=== PATIENT | female | born 1930 | race Caucasian/White ===

== ENCOUNTER 2017-01-17 04:03 | Observation (INO) | payer OTHER ==
[2017-01-17] VITALS (13 sets, daily range): BP systolic 138–172; BP diastolic 68–82; PULSE 57–72; TEMP 36.3–36.6; O2SAT 93–95; Ht 149.9 cm; Wt 73.6 kg
[~2017-01-17] VITALS: Ht 149.9 cm; Wt 73.6 kg
[~2017-01-17 04:03] MED LIST: ADVIN50/60 INH; ALL100 PO; ARFO15NE INH; ASPI1TAB83 PO; BUDE0.5S INH; CALC-393 PO; CALC0.25 PO; CARV25TA PO; CARV25TA2 PO; CEPH500C2 PO; CHOL100010 PO; CLOTCRE33 TOP; DENO60SO SQ; DOCU50CA2 PO; ENOX1INJ10 SQ; FOLI400T41 PO; FRS/40 PO; IMDSR60 PO; LANS30CA12 PO; LEVA0.63 INH; LEVAAER2 INH; LEVO100T PO; LORA-741 PO; LORA10TA44 PO; LOSA50TA6 PO; LPT/40 PO; MONT1TAB3 PO; MULT-506 PO; NITR0.4S UT; NYSS/ MT; NYST1POW7 TOP; OMEG340C PO; PSYL0.524 PO; SALI1SPR3 NAE; SPIR25TA PO; TRIA3AER NAE; ZNT150 PO
[2017-01-17] MEDS ORDERED: NITROGLYCERIN 0.4 MG SL PER TAB CHARGE SL STA (04:16)
[2017-01-17 04:43] LABS: BASO % 0.9 %; BASO ABS # 0.06 K/uL (0-0.2); COMPLETE YES; EOS % 2.9 %; HEMATOCRIT 37.9 % (37-47); IG% 0.3 %; LYMPH % 45.9 %; MEAN CELL VOLUME 92.7 fL (80-100); MEAN CORPUSCULAR HEMOGLOBIN 30.8 pg (25-34); MEAN CORPUSCULAR HGB CONC 33.2 g/dl (32-36); MEAN PLATELET VOLUME 9.9 fL (7.4-10.4); MONO % 8.6 %; NEUT % 41.4 %; PLATELET COUNT 195 K/uL (130-400); RED BLOOD COUNT 4.09 M/uL (4.2-5.4); WHITE BLOOD COUNT 6.53 K/uL (4.8-10.8)
[2017-01-17 04:53] LABS: INR 1.6 (0.9-1.1); PARTIAL THROMBOPLASTIN RATIO 1.2
[2017-01-17] MEDS ORDERED: PANT40TA PO (05:00)
[2017-01-17 05:01] LABS: ALT/SGPT 19 U/L (12-78); AST/SGOT 16 U/L (15-37); BLOOD UREA NITROGEN 31 mg/dl (7-18); BUN/CREATININE RATIO 24.1 (10-20); CALCIUM 8.3 mg/dl (8.5-10.1); CARBON DIOXIDE 28 mmol/L (21-32); CHLORIDE 103 mmol/L (98-107); GLUCOSE 99 mg/dl (70-99); POTASSIUM 3.7 mmol/L (3.5-5.1); SODIUM 137 mmol/L (136-145)
[2017-01-17] MEDS ORDERED: RANI150T3 PO ×2 (05:03)
[2017-01-17] MEDS ORDERED: HYDR-4715 PO (05:04)
[2017-01-17 05:06] LABS: ALKALINE PHOSPHATASE 47 U/L (45-117)
[2017-01-17] MEDS ORDERED: LEVO137T3 PO (05:07)
[2017-01-17] MEDS ORDERED: POTA10CA28 PO (05:07)
--- NOTE | 2017-01-17 05:09 | EMERGENCY ROOM VISIT NOTE ---
ED Visit Note First contact with patient: 04:09 Patient seen by me, rl physician assistants workup, patient will be admitted for chest pain and further evaluation. Problem List Medical Problems: (1) Appendectomy Status: Resolved (2) Asthma Status: Chronic (3) Benign hypertension Status: Chronic (4) Bronchitis Status: Resolved (5) Chronic cough Status: Chronic (6) GERD (gastroesophageal reflux disease) Status: Chronic (7) Heart disease Status: Chronic (8) Hysterectomy Status: Resolved (9) Kidney disease Status: Chronic (10) Osteoporosis Status: Chronic (11) Pneumonia Status: Resolved Current/Historical Medications Scheduled Allopurinol (Allopurinol), 200 MG PO QAM Aspirin (Aspirin), 81 MG PO QAM Atorvastatin (Lipitor), 40 MG PO 6 PM Calcitriol (Rocaltrol Cap), 0.25 MCG PO QAM Calcium Carbonate (Calcium), 1 TAB PO TID Carvedilol (Coreg), 12.5 MG PO AMHS Denosumab (Prolia), 1 DOSE SQ EVERY 6 MONTHS Enoxaparin Sodium (Lovenox), 60 MG SQ DAILY@2000 Fluticasone Prop/Salmeterol (Advair Diskus 500/50 60 Dose), 1 PUFF INH BID Folic Acid (Folvite), 800 MCG PO DAILY Furosemide (Lasix), 60 MG PO DAILY Levothyroxine Sodium (Levothyroxine Sodium), 1 TAB PO QAM Losartan Potassium (Cozaar), 50 MG PO QPM Montelukast Sodium (Singulair), 10 MG PO QAM Multivitamin (Multivitamin), 1 TAB PO QAM Prosser-3 Fatty Acids (Prosser 3), 1 CAP PO QAM Pantoprazole (Protonix), 40 MG PO BID Potassium Chloride (Micro-K Ext Rel), 10 MEQ PO 2XWK Psyllium (Metamucil), 0.52 GM PO BID Ranitidine Hcl (Zantac), 1 TAB PO QAM Ranitidine Hcl (Zantac), 2 TAB PO QPM Spironolactone (Aldactone), 12.5 MG PO QAM Scheduled PRN Arformoterol Tartrate (Brovana), 15 MCG INH BID PRN for SOB/Wheezing Clotrimazole W/ Betamethasone (Lotrisone), 1 APPLN TOP BID PRN for RASH Hydralazine Hcl (Apresoline), 10 MG PO BID PRN for HTN Lorazepam (Ativan), 0.5 MG PO BID PRN for Anxiety Nitroglycerin (Nitrostat), 0.4 MG UT UD PRN for Chest Pain Nystatin (Nystatin Suspension), 5 ML MT QID PRN for THRUSH Nystatin (Topical) (Nystatin), 1 APPLN TOP BID PRN for IRRITATION Allergies Coded Allergies: Dipyridamole (Verified Allergy, Severe, ANAPHYLAXIS, 12/09/14) Edetic Acid (Verified Allergy, Severe, ANAPHYLAXIS, 12/09/14) Propylene Glycol (Verified Allergy, Severe, ANAPHYLAXIS, 12/09/14) Regadenoson (Verified Allergy, Severe, ANAPHYLAXIS, 12/09/14) NSAIDs (Verified Allergy, Mild, per patient, director of resource development recommended not to take, 12/09/14) Sulfamethoxazole (Verified Allergy, Mild, RASH, 12/09/14) Trimethoprim (Verified Allergy, Mild, RASH, 12/09/14) Vital Signs Date Time Temp Pulse Resp B/P (MAP) Pulse Ox O2 Delivery O2 Flow Rate FiO2 01/17/17 04:26 Room Air 01/17/17 04:26 Room Air 01/17/17 04:15 60 01/17/17 04:14 96 Room Air 01/17/17 04:14 36.9 67 18 172/82 96 Room Air Laboratory Results 01/17/17 03:58 Red Blood Count 4.09, Mean Corpuscular Volume 92.7, Mean Corpuscular Hemoglobin 30.8, Mean Corpuscular Hemoglobin Concent 33.2, Mean Platelet Volume 9.9, Neutrophils (%) (Auto) 41.4, Lymphocytes (%) (Auto) 45.9, Monocytes (%) (Auto) 8.6, Eosinophils (%) (Auto) 2.9, Basophils (%) (Auto) 0.9, Neutrophils # (Auto) 2.70, Lymphocytes # (Auto) 3.00, Monocytes # (Auto) 0.56, Eosinophils # (Auto) 0.19, Basophils # (Auto) 0.06 01/17/17 03:58 Test 01/17/17 03:58 01/17/17 04:20 White Blood Count 6.53 K/uL (4.8-10.8) Red Blood Count 4.09 M/uL (4.2-5.4) Hemoglobin 12.6 g/dL (12.0-16.0) Hematocrit 37.9 % (37-47) Mean Corpuscular Volume 92.7 fL (80-100) Mean Corpuscular Hemoglobin 30.8 pg (25-34) Mean Corpuscular Hemoglobin Concent 33.2 g/dl (32-36) Platelet Count 195 K/uL (130-400) Mean Platelet Volume 9.9 fL (7.4-10.4) Neutrophils (%) (Auto) 41.4 % Lymphocytes (%) (Auto) 45.9 % Monocytes (%) (Auto) 8.6 % Eosinophils (%) (Auto) 2.9 % Basophils (%) (Auto) 0.9 % Neutrophils # (Auto) 2.70 K/uL (1.4-6.5) Lymphocytes # (Auto) 3.00 K/uL (1.2-3.4) Monocytes # (Auto) 0.56 K/uL (0.11-0.59) Eosinophils # (Auto) 0.19 K/uL (0-0.5) Basophils # (Auto) 0.06 K/uL (0-0.2) RDW Standard Deviation 50.4 fL (36.4-46.3) RDW Coefficient of Variation 14.8 % (11.5-14.5) Immature Granulocyte % (Auto) 0.3 % Immature Granulocyte # (Auto) 0.02 K/uL (0.00-0.02) Prothrombin Time 17.0 SECONDS (9.0-12.0) Prothromb Time International Ratio 1.6 (0.9-1.1) Activated Partial Thromboplast Time 32.4 SECONDS (21.0-31.0) Partial Thromboplastin Ratio 1.2 Anion Gap 6.0 mmol/L (3-11) Est Creatinine Clear Calc Drug Dose 29.2 ml/min Estimated GFR () 43.3 Estimated GFR (Non- 37.4 BUN/Creatinine Ratio 24.1 (10-20) Calcium Level 8.3 mg/dl (8.5-10.1) Total Bilirubin 0.6 mg/dl (0.2-1) Direct Bilirubin 0.1 mg/dl (0-0.2) Aspartate Amino Transf (AST/SGOT) 16 U/L (15-37) Alanine Aminotransferase (ALT/SGPT) 19 U/L (12-78) Alkaline Phosphatase 47 U/L (45-117) Troponin I < 0.015 ng/ml (0-0.045) Total Protein 6.7 gm/dl (6.4-8.2) Albumin 3.4 gm/dl (3.4-5.0) Lipase 221 U/L (73-393) Bedside Troponin I < 0.030 ng/ml (0-0.045) Medications Administered Medications (Trade) Dose Ordered Sig/Hannah Route Start Time Stop Time Status Last Admin Dose Admin Nitroglycerin (Nitrostat Tab) 0.4 mg NOW STAT SL 01/17/17 04:16 01/17/17 04:19 DC 01/17/17 04:32 0.4 MG Departure Information Referrals Cate Stone M.D. (PCP) Patient Instructions [facility]
[2017-01-17] MEDS ORDERED: FURO40TA3 PO ×2 (05:12)
[2017-01-17] MEDS ORDERED: LEVA45AE PO (05:14)
[2017-01-17] MEDS ORDERED: XPNINS NEB (05:14)
[2017-01-17] MEDS ORDERED: PLMINSR5 NEB (05:16)
[2017-01-17] MEDS ORDERED: ISOS120T5 PO (05:19)
[2017-01-17] MEDS ORDERED: CMD/25 PO ×2 (05:21)
[2017-01-17] MEDS ORDERED: GABA-112 PO (05:23)
[2017-01-17] MEDS ORDERED: POTA1CAP2 PO (05:25)
[2017-01-17] MEDS ORDERED: FEXO1TAB49 PO (05:26)
[2017-01-17] MEDS ORDERED: ASTN (05:27)
[2017-01-17] MEDS ORDERED: FERRTAB18 PO (05:27)
--- NOTE | 2017-01-17 06:03 | EMERGENCY ROOM VISIT NOTE ---
History First contact with patient: 04:09 Chief Complaint: CARDIAC ASSESSMENT Stated Complaint: CHEST TIGHTNESS/SHORT OF BREATH Nursing Triage Summary: Patient arrives to ED via ALS transport with complaints of previous chest pain and SOB. Patient states that she was having chest pain at home with SOB, but denies chest pain since arriving to ED. Patient woke up to use the bathroom and had dry mouth, chest tightness and SOB. Patient has a hx of Afib and asthma. Took her inhaler at home for SOB, had 324mg of ASA prehospital. Patient states that HTN is not abnormal at night but was 180/100 for EMS. History of Present Illness The patient is a 86 year old female who presents to the Emergency Room with complaints of chest pain that started 3:00 this morning that radiates to her jaw described as discomfort, 3 out of 10. Nothing made it better or worse. Patient woke up to go the bathroom and then developed chest pain. She summoned EMS gave her aspirin. Prior to that she checked her blood pressure and was 200 and she checked it again and was about the same. She notified her daughter her daughter came over and gave her a nebulizer. Patient follows with Dr. Benjamin. She is a history of CHF. No prior heart attack. She is on Coumadin for A. fib. Patient denies current dyspnea, abdominal pain, leg pain or swelling, history of PE, fever, chills, vomiting, diarrhea. Patient did have nausea with the chest pain. No diaphoresis. She had an echo 2 years ago and had a cardiac cath in 2011 at [facility] that was negative per family. The daughter states that the mother is slow to respond and somewhat confused per her. She is concerned she might be having a stroke and is requesting further workup for this. Review of Systems See HPI for pertinent positives & negatives. A total of 10 systems reviewed and were otherwise negative. Past Medical/Surgical History Medical Problems: (1) Appendectomy (2) Asthma (3) Benign hypertension (4) Bronchitis (5) Chronic cough (6) GERD (gastroesophageal reflux disease) (7) Heart disease (8) Hysterectomy (9) Kidney disease (10) Osteoporosis (11) Pneumonia Family History Diabetes mellitus FH: cancer FH: heart disease Hypertension Kidney disease Kidney stones Social History Smoking Status: Never Smoker Alcohol Use: none Drug Use: none Marital Status: Housing Status: lives with family Occupation Status: retired Current/Historical Medications Scheduled Allopurinol (Allopurinol), 200 MG PO QAM Atorvastatin (Lipitor), 40 MG PO QPM Azelastine Hcl (Astelin Nasal [place]), 1 SPRAYS NA BID Calcitriol (Rocaltrol Cap), 0.25 MCG PO QAM Calcium Carbonate (Calcium), 2 TAB PO QPM Carvedilol (Coreg), 12.5 MG PO AMHS Fexofenadine Hcl (Loraine Allergy), 180 MG PO DAILY Furosemide (Lasix), 1 TAB PO 2XWK Furosemide (Lasix), 0.5 TAB PO 2XWK Gabapentin (Neurontin), 300 MG PO HS Iron-Vitamin C (Vitron-C), 1 TAB PO DAILY Isosorbide Mononitrate Ext Rel (Imdur Ext Rel), 120 MG PO DAILY AT 10PM Levothyroxine Sodium (Levothyroxine Sodium), 1 TAB PO QAM Losartan Potassium (Cozaar), 50 MG PO QPM Pantoprazole (Protonix), 40 MG PO BID Potassium Chloride (Micro-K Ext Rel), 10 MEQ PO 2XWK Potassium Chloride (Potassium Chloride Er), 10 MEQ PO BID Ranitidine Hcl (Zantac), 1 TAB PO QAM Ranitidine Hcl (Zantac), 2 TAB PO QPM Spironolactone (Aldactone), 12.5 MG PO QAM Warfarin Sod (Coumadin), 2 TAB PO 2XWK Warfarin Sod (Coumadin), 1 TAB PO 5XWK Scheduled PRN Budesonide (Pulmicort Respules 0.5MG/2ML), 4 ML NEB Q12 PRN for RESP TREATMENT Hydralazine Hcl (Apresoline), 10 MG PO BID PRN for HTN Levalbuterol (Levalbuterol HCl), 3 ML NEB Q6 PRN for SOB/Wheezing Levalbuterol Tartrate (Levalbuterol Tartrate Hfa), 2 PUFFS PO Q4 PRN for Shortness of Breath Lorazepam (Ativan), 0.5-1 TAB PO BID PRN for Anxiety Nitroglycerin (Nitrostat), 0.4 MG UT UD PRN for Chest Pain Nystatin (Nystatin Suspension), 5 ML MT QID PRN for THRUSH Nystatin (Topical) (Nystatin), 1 APPLN TOP BID PRN for IRRITATION Physical Exam Vital Signs Date Time Temp Pulse Resp B/P (MAP) Pulse Ox O2 Delivery O2 Flow Rate FiO2 01/17/17 05:45 138/72 01/17/17 05:33 60 19 90 Room Air 01/17/17 05:03 58 19 95 Room Air 01/17/17 04:47 161/68 01/17/17 04:33 66 22 94 Room Air 01/17/17 04:31 174/105 01/17/17 04:29 180/78 01/17/17 04:26 Room Air 01/17/17 04:26 Room Air 01/17/17 04:15 60 01/17/17 04:14 96 Room Air 01/17/17 04:14 36.9 67 18 172/82 96 Room Air 01/17/17 04:11 172/82 Physical Exam VITALS: Vitals are noted on the nurse's note and reviewed by myself. Vital signs hypertensive GENERAL: Pleasant elderly female, in no acute distress, nondiaphoretic, well- developed well-nourished. SKIN: The skin was without rashes, erythema, edema, or bruising. There is no tenting of the skin. Capillary reflex less than 2 seconds. HEAD: Normocephalic atraumatic. EARS: External auditory canals clear, tympanic membranes pearly cummins without erythema or effusion bilaterally. EYES: Pupils equal round and reactive to light and accommodation. Conjunctivae without injection, sclerae without icterus. Extraocular movements intact. NOSE: Patent, turbinates without inflammation or discharge. MOUTH: Mucous membranes mildly dry. Pharynx without erythema or exudate. Uvula midline. Airway patent. Tongue does not deviate. NECK: Supple without nuchal rigidity. No lymphadenopathy. No thyromegaly. Cervical spine is nontender. No JVD. HEART: Regular rate and rhythm LUNGS: Clear to auscultation bilaterally without wheezes, rales or rhonchi. No dullness to percussion. No retractions or accessory muscle use. ABDOMEN: Positive bowel sounds x 4. Normal tympanic percussion. Soft, nontender, without masses or organomegaly. Quezada sign negative. No guarding or rebound tenderness. MUSCULOSKELETAL: No muscle atrophy, erythema, noted. Trace pedal edema to lower extremities NEURO: Patient was alert and oriented to person place and time. Normal sensation to light and sharp touch. No focal neurological deficits. Medical Decision & Procedures Laboratory Results 01/17/17 03:58 Red Blood Count 4.09, Mean Corpuscular Volume 92.7, Mean Corpuscular Hemoglobin 30.8, Mean Corpuscular Hemoglobin Concent 33.2, Mean Platelet Volume 9.9, Neutrophils (%) (Auto) 41.4, Lymphocytes (%) (Auto) 45.9, Monocytes (%) (Auto) 8.6, Eosinophils (%) (Auto) 2.9, Basophils (%) (Auto) 0.9, Neutrophils # (Auto) 2.70, Lymphocytes # (Auto) 3.00, Monocytes # (Auto) 0.56, Eosinophils # (Auto) 0.19, Basophils # (Auto) 0.06 01/17/17 03:58 Test 01/17/17 03:58 01/17/17 04:20 White Blood Count 6.53 K/uL (4.8-10.8) Red Blood Count 4.09 M/uL (4.2-5.4) Hemoglobin 12.6 g/dL (12.0-16.0) Hematocrit 37.9 % (37-47) Mean Corpuscular Volume 92.7 fL (80-100) Mean Corpuscular Hemoglobin 30.8 pg (25-34) Mean Corpuscular Hemoglobin Concent 33.2 g/dl (32-36) Platelet Count 195 K/uL (130-400) Mean Platelet Volume 9.9 fL (7.4-10.4) Neutrophils (%) (Auto) 41.4 % Lymphocytes (%) (Auto) 45.9 % Monocytes (%) (Auto) 8.6 % Eosinophils (%) (Auto) 2.9 % Basophils (%) (Auto) 0.9 % Neutrophils # (Auto) 2.70 K/uL (1.4-6.5) Lymphocytes # (Auto) 3.00 K/uL (1.2-3.4) Monocytes # (Auto) 0.56 K/uL (0.11-0.59) Eosinophils # (Auto) 0.19 K/uL (0-0.5) Basophils # (Auto) 0.06 K/uL (0-0.2) RDW Standard Deviation 50.4 fL (36.4-46.3) RDW Coefficient of Variation 14.8 % (11.5-14.5) Immature Granulocyte % (Auto) 0.3 % Immature Granulocyte # (Auto) 0.02 K/uL (0.00-0.02) Prothrombin Time 17.0 SECONDS (9.0-12.0) Prothromb Time International Ratio 1.6 (0.9-1.1) Activated Partial Thromboplast Time 32.4 SECONDS (21.0-31.0) Partial Thromboplastin Ratio 1.2 Anion Gap 6.0 mmol/L (3-11) Est Creatinine Clear Calc Drug Dose 29.2 ml/min Estimated GFR () 43.3 Estimated GFR (Non- 37.4 BUN/Creatinine Ratio 24.1 (10-20) Calcium Level 8.3 mg/dl (8.5-10.1) Total Bilirubin 0.6 mg/dl (0.2-1) Direct Bilirubin 0.1 mg/dl (0-0.2) Aspartate Amino Transf (AST/SGOT) 16 U/L (15-37) Alanine Aminotransferase (ALT/SGPT) 19 U/L (12-78) Alkaline Phosphatase 47 U/L (45-117) Troponin I < 0.015 ng/ml (0-0.045) Total Protein 6.7 gm/dl (6.4-8.2) Albumin 3.4 gm/dl (3.4-5.0) Lipase 221 U/L (73-393) Bedside Troponin I < 0.030 ng/ml (0-0.045) Medications Administered Medications (Trade) Dose Ordered Sig/Hannah Route Start Time Stop Time Status Last Admin Dose Admin Nitroglycerin (Nitrostat Tab) 0.4 mg NOW STAT SL 01/17/17 04:16 01/17/17 04:19 DC 01/17/17 04:32 0.4 MG ED Course Prior records/ancillary studies reviewed. Triage Nursing notes reviewed. Additional history obtained from family. The patient's history was concerning for chest pain. Differential diagnosis: Etiologies such as cardiac ischemia, aortic dissection, pulmonary embolism, pneumonia, pneumothorax, musculoskeletal, infections, pericarditis, myocarditis , esophageal rupture, gastrointestinal, as well as others were entertained. Physical examination: As above. ER treatment provided: Nitroglycerin. EMS gave aspirin On reassessment the patient felt better. Diagnostic interpretation by me: The electrocardiogram was normal sinus, left axis deviation, first degree AV block, no acute ST-T wave changes, rate of 60. Impression normal sinus rhythm with a left axis deviation and first-degree A-V block interpreted by myself The labs revealed negative troponin. No leukocytosis Imaging studies: Chest x-ray with no acute consolidation, pneumothorax or free air per my interpretation CT HEAD: No acute intracranial hemorrhage. No evidence of intracranial mass, extra-axial fluid collection, or acute territorial infarct. Visualized paranasal sinuses and mastoid air cells are clear. Radiologist: Stevenson Barker MD Study ready at 04:59 and initial results transmitted at 05:43 Consultation: A consultation was placed with the hospitalist, Dr Mohr. The case was discussed and diagnostics were reviewed. The patient was evaluated in the ER for further treatment. Exam and history seem consistent with chest pain with concerns for possible cardiac ischemia. Patient will be evaluated by medicine for possible admission. The daughter that the patient was slow to respond and slightly confused the CT imaging was ordered. This is negative. By the evaluation outlined above emergent etiologies such as aortic dissection , pulmonary embolism, pneumonia, pneumothorax, infections, pericarditis, myocarditis, gastrointestinal, as well as others were deemed relatively unlikely. The pt informed about the findings as listed above. All questions were answered and pleased with the treatment. Case reviewed by attending Medical Decision As above Medication Reconcilliation Current Medication List: was personally reviewed by me Blood Pressure Screening Patient's blood pressure: Elevated blood pressure Blood pressure disposition: Referred to PCP Impression Primary Impression: Precordial chest pain Departure Information Dispostion Being Evaluated By Hospitalist Condition FAIR Referrals Cate Stone M.D. (PCP) Patient Instructions My [facility]
[2017-01-17 06:34] LABS: URINE APPEARANCE CLEAR (CLEAR); URINE BILIRUBIN NEG (NEG); URINE COLOR YELLOW; URINE EPITHELIAL CELL AUTO >30 /lpf (0-5); URINE NITRITE NEG (NEG); URINE PH 6.5 (4.5-7.5); URINE SPECIFIC GRAVITY 1.011 (1.000-1.030); UROBILINOGEN NEG (NEG); ZZUR CULT IF INDIC CLEAN CATCH NO
[2017-01-17 06:42] LABS: MANUAL MICROSCOPIC REQUIRED? NO; REVIEW REQ? NO
--- NOTE | 2017-01-17 07:21 | DIAGNOSTIC IMAGING REPORT ---
SINGLE VIEW CHEST CLINICAL HISTORY: Atypical chest pain. FINDINGS: An AP, portable, upright chest radiograph is compared to study dated 01/17/2017. The examination is degraded by portable technique and patient rotation. The cardiomediastinal silhouette is unremarkable. There is atherosclerotic calcification of the thoracic aorta. Left basilar atelectasis is noted. The lungs and pleural spaces are otherwise clear. No pneumothorax is seen. The skeletal structures are osteopenic. The bony thorax is grossly intact. Arthritic change is seen in the shoulders and thoracic spine. IMPRESSION: No acute cardiopulmonary abnormality. Electronically signed by: Abrahan Romero M.D. 01/17/2017 7:20 AM Dictated Date/Time: 01/17/2017 7:19 AM
--- NOTE | 2017-01-17 07:34 | DIAGNOSTIC IMAGING REPORT ---
CT OF THE HEAD WITHOUT CONTRAST CLINICAL HISTORY: Slow to respond. Possible stroke. COMPARISON STUDY: Head CT September 02, 2013. CT DOSE: 537.48 mGy.cm TECHNIQUE: Helical axial images of the head were obtained without IV contrast. Automated exposure control was utilized for the study. A dose lowering technique was utilized adhering to the principles of ALARA. FINDINGS: No acute intracranial hemorrhage, midline shift, mass effect is present. Ventricular system is stable. Basilar cisterns are patent. There are no extra axial collections. Alejandro-white differentiation is maintained. There are no findings to suggest acute territorial infarct or dural sinus thrombosis. Alejandro-white differentiation is maintained. There are no significant calvarial abnormalities. Visualized portions of the sinuses and mastoid air cells are clear. IMPRESSION: No acute intracranial findings. Electronically signed by: Dayo Peña M.D. 01/17/2017 7:33 AM Dictated Date/Time: 01/17/2017 7:28 AM
[2017-01-17] MEDS ORDERED: ONDANSETRON INJ 2 MG/ML 2 ML VIAL IV PRN (09:00)
[2017-01-17] MEDS ORDERED: AMLODIPINE BESYLATE 5 MG TAB PO SCH (09:00)
[2017-01-17] MEDS ORDERED: NITROGLYCERIN 0.4 MG SL PER TAB CHARGE SL PRN (09:00)
[2017-01-17] MEDS ORDERED: POLYETHYLENE (MIRALAX) 17 GM PACK PO PRN (09:00)
[2017-01-17] MEDS ORDERED: ACETAMINOPHEN 325 MG TAB PO PRN (09:00)
[2017-01-17] MEDS ORDERED: CALC-50 PO (09:17)
[2017-01-17] MEDS ORDERED: CRG25 PO (09:17)
[2017-01-17] MEDS ORDERED: DENO60SO SQ (09:23)
[2017-01-17] MEDS ORDERED: OMEG-112 PO (09:23)
[2017-01-17] MEDS ORDERED: FOLI1TAB7 PO (09:23)
[2017-01-17] MEDS ORDERED: FLUT1INH7 PO (09:23)
[2017-01-17] MEDS ORDERED: LEVALBUTEROL 0.63MG/3 ML NEB INH PRN (09:30)
[2017-01-17] MEDS ORDERED: LEValbuterol HFA 15GM INHALER INH PRN (09:30)
[2017-01-17] MEDS ORDERED: BUDESONIDE 0.5 MG/2 ML VIAL (PULMICORT) INH PRN (09:30)
[2017-01-17] MEDS: LEVOTHYROXINE 137 MCG TAB PO SCH (09:57)
[2017-01-17] MEDS ORDERED: CARVEDILOL 25 MG TAB PO SCH ×2 (10:00→17:00)
--- NOTE | 2017-01-17 10:05 | History and Physical ---
History & Physical Date & Time of Service: Jan 17, 2017 at 09:33 Chief Complaint: Precordial Chest Pain Primary Care Physician: Cate Stone M.D. History of Present Illness Source: patient, family, clinic records, hospital records 86 yo F with hypertensive heart disease (non-obstructive CAD per cath 2011) and history of labile HTN w h/o lacunar stroke presents with substernal chest pain last night that began after she had returned from using the restroom in the middle of the night. She describes it "felt like heartburn" and states that she was burping alot. She reports the pain being sharp and radiating into the L jaw and under the L breast. She reports taking her blood pressure twice with readings of 202 systolic and 206 systolic, respectively. This made her anxious and worried, and she states that her breathing got worse and she developed nausea. She denies lightheadedness, numbness in her extremities, stroke like symptoms or wheezing or diaphoresis. She states that her daughter with whom she lives arrived in the room and gave her a nebulizer treatment. Although she has nitro and hydralazine PRN SBP>200, they decided to not take this and call 911 instead. She was transferred by ambulance to the ER and en route received 325mg ASA. Upon arrival to the ER, she had the chest pain until taking one dose of nitro which completely resolved it. In the ER, VSS, she is mentating well, CXR was negative for acute disease, EKG reading SR60 1AVB and q waves present in V1-3 is unchanged from prior on 01/27. Current BP is 178/74. Over the past few weeks she denies feeling poorly, specifically denying chest pain, nausea, vomiting, diarrhea, abdominal pain, blood per rectum, cough, fevers, chills. She reports that her asthma is well controlled, only having one asthma exacerbation one month ago which was managed as outpatient, and long-standing controlled disease prior to that. She does report minor headaches on occasion , shortness of breath with exertion which is chronic and unchanged, and chronic constipation. At baseline she is alert and appropriate, ambulates with a walker , and accomplishes most ADLs herself except for showering which her daughter assists with. She and her live with her son and daughter (present at bedside). Daughter corroborates story reported above. Past Medical/Surgical History Medical Problems: (1) Anticoagulated on Coumadin Status: Chronic (2) Appendectomy Status: Resolved (3) Asthma Status: Chronic (4) Bronchitis Status: Resolved (5) Chronic cough Status: Chronic (6) Diastolic heart failure Status: Chronic (7) GERD (gastroesophageal reflux disease) Status: Chronic (8) Gout Status: Chronic (9) Heart disease Permanent Comment: nonobstructive disease per cath 2012 Status: Chronic (10) Hysterectomy Status: Resolved (11) Kidney disease Status: Chronic (12) Labile hypertension Status: Chronic (13) PAF (paroxysmal atrial fibrillation) Status: Chronic (14) Pneumonia Status: Resolved Surgical Problems: (1) History of bladder suspension procedure Status: Chronic (2) History of herniorrhaphy Status: Chronic Family History Diabetes mellitus FH: cancer FH: heart disease Hypertension Kidney disease Kidney stones Social History Smoking Status: Never Smoker Smokeless Tobacco Use: No Alcohol Use: socially Drug Use: none Marital Status: Housing status: lives with family Occupational Status: retired Immunizations History of Influenza Vaccine: Yes Influenza Vaccine Date: Feb 26, 2016 History of Tetanus Vaccine?: Yes Tetanus Immunization Date: October 04, 2012 History of Pneumococcal: Yes Pneumococcal Date: Nov 24, 2015 History of Hepatitis B Vaccine: No Multi-Drug Resistant Organisms History of MDRO: No Allergies Coded Allergies: Dipyridamole (Verified Allergy, Severe, ANAPHYLAXIS, 12/09/14) Edetic Acid (Verified Allergy, Severe, ANAPHYLAXIS, 12/09/14) Propylene Glycol (Verified Allergy, Severe, ANAPHYLAXIS, 12/09/14) Regadenoson (Verified Allergy, Severe, ANAPHYLAXIS, 12/09/14) NSAIDs (Verified Allergy, Mild, 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, 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, 12/09/14) Sulfamethoxazole (Verified Allergy, Mild, RASH, 12/09/14) Trimethoprim (Verified Allergy, Mild, RASH, 12/09/14) Home Medications Scheduled Allopurinol (Allopurinol), 200 MG PO QAM Atorvastatin (Lipitor), 40 MG PO QPM Azelastine Hcl (Astelin Nasal [place]), 1 SPRAYS NA BID Calcitriol (Rocaltrol Cap), 0.25 MCG PO QAM Calcium Carbonate (Calcium 600), 1,500 MG PO HS Carvedilol (Coreg), 12.5 MG PO QAM Carvedilol (Carvedilol), 25 MG PO HS Denosumab (Prolia), 60 MG SQ [id number] Fexofenadine Hcl (Loraine Allergy), 180 MG PO DAILY Fluticasone Furoate-Vilanterol (Breo Ellipta 200-25 Mcg/INH), 1 INHA PO QAM Folic Acid (Folvite), 1 TAB PO DAILY Furosemide (Lasix), 1 TAB PO DAILY Furosemide (Lasix), 0.5 TAB PO 2XWK Gabapentin (Neurontin), 300 MG PO HS Isosorbide Mononitrate Ext Rel (Imdur Ext Rel), 120 MG PO DAILY AT 10PM Levothyroxine Sodium (Levothyroxine Sodium), 1 TAB PO QAM Losartan Potassium (Cozaar), 50 MG PO QPM [id number] Ethyl Esters ([place]-3), 1 CAP PO DAILY Pantoprazole (Protonix), 40 MG PO BID Potassium Chloride (Micro-K Ext Rel), 10 MEQ PO 2XWK Ranitidine Hcl (Zantac), 1 TAB PO QAM Ranitidine Hcl (Zantac), 2 TAB PO QPM Spironolactone (Aldactone), 12.5 MG PO QAM Warfarin Sod (Coumadin), 2 TAB PO 2XWK Warfarin Sod (Coumadin), 1 TAB PO 5XWK Scheduled PRN Budesonide (Pulmicort Respules 0.5MG/2ML), 4 ML NEB Q12 PRN for RESP TREATMENT Hydralazine Hcl (Apresoline), 10 MG PO BID PRN for HTN Levalbuterol (Levalbuterol HCl), 3 ML NEB Q6 PRN for SOB/Wheezing Levalbuterol Tartrate (Levalbuterol Tartrate Hfa), 2 PUFFS PO Q4 PRN for Shortness of Breath Lorazepam (Ativan), 0.5-1 TAB PO BID PRN for Anxiety Nitroglycerin (Nitrostat), 0.4 MG UT UD PRN for Chest Pain Review of Systems At least 10 systems were reviewed and negative except as indicated in HPI. Physical Exam Vital Signs Date Time Temp Pulse Resp B/P (MAP) Pulse Ox O2 Delivery O2 Flow Rate FiO2 01/17/17 08:16 95 Room Air 01/17/17 07:56 60 01/17/17 07:31 61 16 178/74 95 Room Air 01/17/17 05:45 138/72 01/17/17 05:33 60 19 90 Room Air 01/17/17 05:03 58 19 95 Room Air 01/17/17 04:47 161/68 01/17/17 04:33 66 22 94 Room Air 01/17/17 04:31 174/105 01/17/17 04:29 180/78 01/17/17 04:26 Room Air 01/17/17 04:26 Room Air 01/17/17 04:15 60 01/17/17 04:14 96 Room Air 01/17/17 04:14 36.9 67 18 172/82 96 Room Air 01/17/17 04:11 172/82 GEN: obese, elderly, in no acute distress, alert and appropriate HEENT: NC/AT, pupils equal and round bilaterall, normal sclerae, MMM CARDIO: reg rate, S1/2 heard without m/g/r, no edema, 2+ pulses throughout LUNGS: CTA bilaterally, no crackles, rales or wheezes, good diaphragmatic excursion ABD: soft, mild diffuse tenderness, non-distended, no rebound or guarding, +BS EXTREMITY: fatty tumor on RUE, small round coin-sized areas of ecchymosis present on RUE (2) and LUE (1), extremities are warm and well-perfused NEURO: CN 2-12 grossly intact, sensation intact throughout, no gross focal deficits. MUSC: 5/5 strength throughout, no gross focal deficits SKIN: warm and dry and as above. Diagnostics Laboratory Results 01/17/17 03:58 Red Blood Count 4.09, Mean Corpuscular Volume 92.7, Mean Corpuscular Hemoglobin 30.8, Mean Corpuscular Hemoglobin Concent 33.2, Mean Platelet Volume 9.9, Neutrophils (%) (Auto) 41.4, Lymphocytes (%) (Auto) 45.9, Monocytes (%) (Auto) 8.6, Eosinophils (%) (Auto) 2.9, Basophils (%) (Auto) 0.9, Neutrophils # (Auto) 2.70, Lymphocytes # (Auto) 3.00, Monocytes # (Auto) 0.56, Eosinophils # (Auto) 0.19, Basophils # (Auto) 0.06 01/17/17 03:58 Test 01/17/17 03:58 01/17/17 04:20 01/17/17 06:15 White Blood Count 6.53 K/uL (4.8-10.8) Red Blood Count 4.09 M/uL (4.2-5.4) Hemoglobin 12.6 g/dL (12.0-16.0) Hematocrit 37.9 % (37-47) Mean Corpuscular Volume 92.7 fL (80-100) Mean Corpuscular Hemoglobin 30.8 pg (25-34) Mean Corpuscular Hemoglobin Concent 33.2 g/dl (32-36) Platelet Count 195 K/uL (130-400) Mean Platelet Volume 9.9 fL (7.4-10.4) Neutrophils (%) (Auto) 41.4 % Lymphocytes (%) (Auto) 45.9 % Monocytes (%) (Auto) 8.6 % Eosinophils (%) (Auto) 2.9 % Basophils (%) (Auto) 0.9 % Neutrophils # (Auto) 2.70 K/uL (1.4-6.5) Lymphocytes # (Auto) 3.00 K/uL (1.2-3.4) Monocytes # (Auto) 0.56 K/uL (0.11-0.59) Eosinophils # (Auto) 0.19 K/uL (0-0.5) Basophils # (Auto) 0.06 K/uL (0-0.2) RDW Standard Deviation 50.4 fL (36.4-46.3) RDW Coefficient of Variation 14.8 % (11.5-14.5) Immature Granulocyte % (Auto) 0.3 % Immature Granulocyte # (Auto) 0.02 K/uL (0.00-0.02) Prothrombin Time 17.0 SECONDS (9.0-12.0) Prothromb Time International Ratio 1.6 (0.9-1.1) Activated Partial Thromboplast Time 32.4 SECONDS (21.0-31.0) Partial Thromboplastin Ratio 1.2 Anion Gap 6.0 mmol/L (3-11) Est Creatinine Clear Calc Drug Dose 29.2 ml/min Estimated GFR () 43.3 Estimated GFR (Non- 37.4 BUN/Creatinine Ratio 24.1 (10-20) Calcium Level 8.3 mg/dl (8.5-10.1) Total Bilirubin 0.6 mg/dl (0.2-1) Direct Bilirubin 0.1 mg/dl (0-0.2) Aspartate Amino Transf (AST/SGOT) 16 U/L (15-37) Alanine Aminotransferase (ALT/SGPT) 19 U/L (12-78) Alkaline Phosphatase 47 U/L (45-117) Troponin I < 0.015 ng/ml (0-0.045) Total Protein 6.7 gm/dl (6.4-8.2) Albumin 3.4 gm/dl (3.4-5.0) Lipase 221 U/L (73-393) Bedside Troponin I < 0.030 ng/ml (0-0.045) Urine Color YELLOW Urine Appearance CLEAR (CLEAR) Urine pH 6.5 (4.5-7.5) Urine Specific [place] 1.011 (1.000-1.030) Urine Protein NEG (NEG) Urine Glucose (UA) NEG (NEG) Urine Ketones NEG (NEG) Urine Occult Blood NEG (NEG) Urine Nitrite NEG (NEG) Urine Bilirubin NEG (NEG) Urine Urobilinogen NEG (NEG) Urine Leukocyte Esterase TRACE (NEG) Urine WBC (Auto) 1-5 /hpf (0-5) Urine RBC (Auto) 0-4 /hpf (0-4) Urine Hyaline Casts (Auto) 0 /lpf (0-5) Urine Epithelial Cells (Auto) >30 /lpf (0-5) Urine Bacteria (Auto) NEG (NEG) Results Past 24 Hours Test 01/17/17 03:58 01/17/17 04:20 01/17/17 06:15 Range/Units White Blood Count 6.53 4.8-10.8 K/uL Red Blood Count 4.09 4.2-5.4 M/uL Hemoglobin 12.6 12.0-16.0 g/dL Hematocrit 37.9 37-47 % Mean Corpuscular Volume 92.7 80-100 fL Mean Corpuscular Hemoglobin 30.8 25-34 pg Mean Corpuscular Hemoglobin Concent 33.2 32-36 g/dl Platelet Count 195 130-400 K/uL Mean Platelet Volume 9.9 7.4-10.4 fL Neutrophils (%) (Auto) 41.4 % Lymphocytes (%) (Auto) 45.9 % Monocytes (%) (Auto) 8.6 % Eosinophils (%) (Auto) 2.9 % Basophils (%) (Auto) 0.9 % Neutrophils # (Auto) 2.70 1.4-6.5 K/uL Lymphocytes # (Auto) 3.00 1.2-3.4 K/uL Monocytes # (Auto) 0.56 0.11-0.59 K/uL Eosinophils # (Auto) 0.19 0-0.5 K/uL Basophils # (Auto) 0.06 0-0.2 K/uL RDW Standard Deviation 50.4 36.4-46.3 fL RDW Coefficient of Variation 14.8 11.5-14.5 % Immature Granulocyte % (Auto) 0.3 % Immature Granulocyte # (Auto) 0.02 0.00-0.02 K/uL Prothrombin Time 17.0 9.0-12.0 SECONDS Prothromb Time International Ratio 1.6 0.9-1.1 Activated Partial Thromboplast Time 32.4 21.0-31.0 SECONDS Partial Thromboplastin Ratio 1.2 Sodium Level 137 136-145 mmol/L Potassium Level 3.7 3.5-5.1 mmol/L Chloride Level 103 98-107 mmol/L Carbon Dioxide Level 28 21-32 mmol/L Anion Gap 6.0 3-11 mmol/L Blood Urea Nitrogen 31 7-18 mg/dl Creatinine 1.30 0.60-1.20 mg/dl Est Creatinine Clear Calc Drug Dose 29.2 ml/min Estimated GFR () 43.3 Estimated GFR (Non- 37.4 BUN/Creatinine Ratio 24.1 10-20 Random Glucose 99 70-99 mg/dl Calcium Level 8.3 8.5-10.1 mg/dl Total Bilirubin 0.6 0.2-1 mg/dl Direct Bilirubin 0.1 0-0.2 mg/dl Aspartate Amino Transf (AST/SGOT) 16 15-37 U/L Alanine Aminotransferase (ALT/SGPT) 19 12-78 U/L Alkaline Phosphatase 47 45-117 U/L Troponin I < 0.015 0-0.045 ng/ml Total Protein 6.7 6.4-8.2 gm/dl Albumin 3.4 3.4-5.0 gm/dl Lipase 221 73-393 U/L Bedside Troponin I < 0.030 0-0.045 ng/ml Urine Color YELLOW Urine Appearance CLEAR CLEAR Urine pH 6.5 4.5-7.5 Urine Specific [place] 1.011 1.000-1.030 Urine Protein NEG NEG Urine Glucose (UA) NEG NEG Urine Ketones NEG NEG Urine Occult Blood NEG NEG Urine Nitrite NEG NEG Urine Bilirubin NEG NEG Urine Urobilinogen NEG NEG Urine Leukocyte Esterase TRACE NEG Urine WBC (Auto) 1-5 0-5 /hpf Urine RBC (Auto) 0-4 0-4 /hpf Urine Hyaline Casts (Auto) 0 0-5 /lpf Urine Epithelial Cells (Auto) >30 0-5 /lpf Urine Bacteria (Auto) NEG NEG CXR normal No change from prior EKG Impression Assessment and Plan 86 yo F with hypertensive heart disease without h/o stent and labile blood pressure with a h/o anxiety presents with chest pain in setting of HTN relieved by nitro 1. Labile Hypertension-reportedly compliant with medications. After discussing with Cardiology will add Amlodipine 5mg now. Otherwise cont home meds as ordered and monitor. 2. Chest pain-this patient has a h/o nonobstructive CAD, however, the story told is more consistent with heartburn and anxiety as opposed to ACS. To support this, she has an unchanged EKG, an initial set of cardiac enzymes which is negative, stable vital signs a normal chest xray and tenderness to palpation of her anterior chest wall. She is higher risk, however, and will consult Cardiology for discharge plan and assistance with management and will rule out ACS with serial cardiac enzymes. Cont nitro PRN pain, cont good BP control. Echo resting ordered. Tele monitor. 3. Diastolic heart failure likely 2/2 longstanding HTN-compensated. Cont BP control and low salt diet along with current medical management (Lasix, etc) without changes. 4. Hypothyroidism-TSH pending, cont Levothyroxine at home dose 5. Asthma-stable, no wheezing on exam. Cont home inhalers. OK to use home Breo. 6. PAF-rate controlled with Coreg, on coumadin 7. CAD-medical management as above. Of note, not on baby aspirin at home with reported allergy to NSAIDs, however, tolerated ASA well this morning. Would consider adding at discharge. DVT proph-coumadin/SCD FULL Dispo-to telemetry Leisa Fernandes DO [facility] Level of Care Telemetry Advanced Directives Existing Living Will: No Existing Power of Medical Laboratory Assistant: No VTE Prophylaxis VTE Risk Assessment Done? Y/N: Yes Risk Level: Moderate Given or contraindicated: Warfarin (Coumadin)
[2017-01-17] MEDS ORDERED: DOCU-94 PO (10:10)
[2017-01-17] MEDS ORDERED: HOME MED ADMINISTRATION ONE (10:15)
[2017-01-17] MEDS: RANITIDINE HCL 150 MG TAB PO SCH (10:34)
[2017-01-17] MEDS: ALLOPURINOL 100 MG TAB PO SCH (10:34)
[2017-01-17] MEDS: ASPIRIN 81 MG ECTAB PO SCH (10:35)
[2017-01-17] MEDS: OMEGA-3 (PURIFIED FISH OIL) 1 GM CAP PO SCH (10:36)
[2017-01-17] MEDS: SPIRONOLACTONE 25 MG TAB PO SCH (10:36)
[2017-01-17] MEDS: FEXOFENADINE HCL 180 MG TAB PO SCH (10:36)
[2017-01-17] MEDS: CALCITRIOL 0.25 MCG CAP PO SCH (10:36)
[2017-01-17] MEDS: FUROSEMIDE 40 MG TAB PO SCH (10:36)
[2017-01-17] MEDS: PANTOprazole SOD 40 MG TAB PO SCH ×2 (10:36→17:48)
[2017-01-17 10:57] LABS: CKMB/CK RATIO 1.2 (0-3.0)
[2017-01-17] MEDS ORDERED: LOSARTAN POTASSIUM 50 MG TAB PO ONE (11:00)
[2017-01-17] MEDS ORDERED: IV FLUIDS COMPLETED PRN (11:30)
--- NOTE | 2017-01-17 12:16 | CARDIOLOGY CONSULTATION ---
DATE OF CONSULTATION: 01/17/2017 CONSULTATION REQUESTED BY: Leisa Fernandes DO REASON FOR CONSULTATION: Hypertensive urgency. HISTORY OF PRESENT ILLNESS: Ms. Gillis is a very pleasant 86-year-old woman who normally follows with Dr. Benjamin of our cardiology practice. She presented to [facility] early in the a.m. of 01/17/2017 with a complaint of chest discomfort and elevated blood pressure. The patient states that she went to bed in her normal state of health last night, but then woke up in the middle of the night to get a drink, after which she states that she felt as though she was having some heartburn and started belching repeatedly. This was quickly associated with substernal pressure sensation that radiated up to her jaw. At that time, she became concerned and took her blood pressure. She took it a few times and it maxed out at 230 systolic. At that time, she called her daughter. She was also found to be having significant shortness of breath and thought that she was also having her asthma acting up at the same time. She does have hydralazine at home to be taken on an as needed basis for blood pressure greater than 200. However, the daughter became concerned and EMS was called. She was brought into the Emergency Department and upon arrival, she remained significantly hypertensive with initial blood pressure 172/82 and she was given sublingual nitroglycerin with resolution of her chest discomfort and improvement of her blood pressure. She was then admitted to telemetry. Her daughter is at bedside with her. The patient's daughter states that she has a longstanding history of labile hypertension for which she follows very closely with Dr. Benjamin. She has reactions to multiple medications in the past. Currently, the patient states that she is feeling better but still some very slight pressure in the middle of her chest that is now not radiating. Her shortness of breath has also resolved with nebulizer treatments. PAST SURGICAL HISTORY: 1. Cardiac catheterization in 2011 showing nonobstructive coronary artery disease. 2. Thyroidectomy. 3. Hernia repair. 4. Multiple upper endoscopies. 5. Colonoscopy. 6. Appendectomy. MEDICAL ILLNESSES: 1. Stage 3 chronic kidney disease. 2. Labile hypertension. 3. History of TIA. 4. Nonobstructive coronary artery disease. 5. Diastolic dysfunction with normal LV systolic function. 6. Osteoarthritis. 7. GERD. 8. Follicular carcinoma of the thyroid, status post resection. 9. Paroxysmal atrial fibrillation. 10. Chronic superficial leg pain. FAMILY HISTORY: Noncontributory. SOCIAL HISTORY: Denies any alcohol, tobacco or recreational drug use. REVIEW OF SYSTEMS: As per HPI, all other review of systems reviewed and negative. ALLERGIES: 1. ____. 2. ADIPIC ACID. 3. PROPYLENE GLYCOL. 4. REGADENOSON 5. QUESTIONABLE NSAIDS. 6. TRIMETHOPRIM. 7. SULFAMETHOXAZOLE. 8. HISTORY OF EDEMA WITH AMLODIPINE. MEDICATIONS AN OUTPATIENT: 1. Imdur 120 mg daily. 2. Coreg 12.5 mg b.i.d. 3. Spironolactone 12.5 mg daily. 4. Coumadin as directed. 5. Potassium chloride currently taking 10 mEq, Monday and Monday. 6. Atorvastatin 40 mg daily. 7. Lasix 40 mg daily with an extra 20 mg, Mondays and Fridays. 8. Hydralazine 10 mg b.i.d. as needed for uncontrolled hypertension. 9. Losartan 50 mg daily. 10. Singular daily. 11. Nasacort. 12. Folic acid. 13. Breo. 14. Nebulizers as needed. 15. Protonix b.i.d. PHYSICAL EXAMINATION: VITALS: Temperature 36.6, pulse 58, respiratory rate 12, blood pressure 172/74. GENERAL: Awake, alert, oriented x3 in no acute distress, sitting upright in bed, eating breakfast. HEENT: Normocephalic, atraumatic. Pupils equal, round, and reactive to light and accommodation. Extraocular muscles intact. Anicteric sclerae. Moist mucous membranes. NECK: No JVD, no bruit. CARDIOVASCULAR: Regular. Positive S4. Normal S1 and S2. No S3. A 3/6 holosystolic ejection murmur, greatest at the left sternal border midclavicular line, fifth intercostal space without radiation, no rubs. PULMONARY: Scant rhonchi and wheezing, no rales. ABDOMEN: Bowel sounds x4, soft. No rebound, guarding, tenderness. No organomegaly. EXTREMITIES: I was instructed not to palpate the extremities by the daughter. No visual edema. Normal color. SKIN: Warm and dry. TEST RESULTS: A 12-lead EKG performed in the Emergency Department independently reviewed at this time shows normal sinus rhythm at 60 beats per minute with first-degree AV block, normal axis, poor R-wave progression across the precordium, no signs of active ischemia, and no significant change compared to previous study of 2015. LABORATORY STUDIES OF SIGNIFICANCE: Sodium 137, potassium 3.7, BUN 31, creatinine 1.3. Troponin negative x3. CPK of 84. IMPRESSION: 1. Hypertensive urgency. 2. History of nonobstructive coronary artery disease. 3. Paroxysmal atrial fibrillation, currently in normal sinus rhythm on chronic Coumadin therapy. 4. Diastolic dysfunction with normal left ventricular systolic function. 5. Moderate tricuspid regurgitation. 6. History labile hypertension. 7. History of difficulty tolerating certain medications. 8. Stage 3 chronic kidney disease. RECOMMENDATIONS: Ms. Gillis and her daughter were counseled that at this point, she appears to be suffering from hypertensive urgency and most prudent course of action at this point would be for further blood pressure control. My initial thought was to start the patient on amlodipine; however, daughter states that she cannot tolerate due lower extremity edema. She is currently on losartan 50 mg daily with creatinine currently 1.3, so we will increase it to a total of 100 mg daily, giving her divided doses of 50 b.i.d. today and see where her blood pressure goes from there. Otherwise, she is already on Imdur 120 mg daily, Coreg 12.5 mg b.i.d., as well as spironolactone and Lasix. The patient's daughter states that she does not tolerate long-term hydralazine and can only use it in the acute setting, so we will hold off on adding that at this time as well. Our goal at this point will be to control her blood pressure. Once it is controlled, we can discharge to home with close followup with Dr. Benjamin as an outpatient.
[2017-01-17] MEDS ORDERED: WARFARIN SOD 2.5 MG TAB PO SCH (16:00)
[2017-01-17 16:45] LABS: CKMB/CK RATIO 1.7 (0-3.0)
[2017-01-17] MEDS ORDERED: RANITIDINE HCL 150 MG TAB PO SCH (18:00)
[2017-01-17] MEDS: AZELASTINE HCL 0.1 % NASAL SPRAY SCH (20:41)
[2017-01-17] MEDS: DOCUSATE SODIUM 100 MG CAP PO SCH (20:42)
[2017-01-17] MEDS: NYSTATIN SUSP 500,000 U/5 ML UDC PO SCH (20:42)
[2017-01-17] MEDS ORDERED: ATORVASTATIN 20 MG TAB PO SCH (21:00)
[2017-01-17] MEDS ORDERED: FLUTICASONE/SALMETEROL (ADVAIR) 500/50 INH 14 PUFF INH SCH (21:00)
[2017-01-17] MEDS ORDERED: AZELASTINE HCL SCH (21:00)
[2017-01-17] MEDS ORDERED: CALCIUM CARBONATE 1250MG TAB PO SCH ×2 (21:00)
[2017-01-17] MEDS ORDERED: LOSARTAN POTASSIUM 50 MG TAB PO SCH (22:00)
[2017-01-17] MEDS ORDERED: ISOSORBIDE MONONITRATE 60 MG TABCR PO SCH (22:00)
[2017-01-17] MEDS ORDERED: GABAPENTIN 300 MG CAP PO SCH (22:00)
[2017-01-17] MEDS: LORAZEPAM 0.5 MG TAB PO PRN (22:13)
[2017-01-18] VITALS (7 sets, daily range): BP systolic 127–166; BP diastolic 61–81; PULSE 54–63; TEMP 36.4–36.7; O2SAT 92–97
[2017-01-18 05:54] LABS: HEMATOCRIT 34.7 % (37-47); MEAN CELL VOLUME 93.3 fL (80-100); MEAN CORPUSCULAR HEMOGLOBIN 30.4 pg (25-34); MEAN CORPUSCULAR HGB CONC 32.6 g/dl (32-36); MEAN PLATELET VOLUME 9.8 fL (7.4-10.4); PLATELET COUNT 182 K/uL (130-400); RED BLOOD COUNT 3.72 M/uL (4.2-5.4); WHITE BLOOD COUNT 5.59 K/uL (4.8-10.8)
[2017-01-18] MEDS: LEVOTHYROXINE 137 MCG TAB PO SCH (05:57)
[2017-01-18 06:04] LABS: INR 2.1 (0.9-1.1); PROTHROMBIN TIME (PATIENT) 22.9 SECONDS (9.0-12.0)
[2017-01-18 06:36] LABS: BUN/CREATININE RATIO 27.6 (10-20); CALCIUM 8.9 mg/dl (8.5-10.1); CREATININE 1.2 mg/dl (0.60-1.20); POTASSIUM 3.7 mmol/L (3.5-5.1)
[2017-01-18] MEDS ORDERED: CARVEDILOL 12.5 MG TAB PO SCH (07:00)
[2017-01-18] MEDS ORDERED: CARVEDILOL 25 MG TAB PO SCH (07:00)
[2017-01-18] MEDS: SPIRONOLACTONE 25 MG TAB PO SCH (08:06)
[2017-01-18] MEDS: FEXOFENADINE HCL 180 MG TAB PO SCH (08:07)
[2017-01-18] MEDS: ALLOPURINOL 100 MG TAB PO SCH (08:07)
[2017-01-18] MEDS: AZELASTINE HCL 0.1 % NASAL SPRAY SCH (08:07)
[2017-01-18] MEDS: OMEGA-3 (PURIFIED FISH OIL) 1 GM CAP PO SCH (08:07)
[2017-01-18] MEDS: NYSTATIN SUSP 500,000 U/5 ML UDC PO SCH ×2 (08:07→12:28)
[2017-01-18] MEDS: FUROSEMIDE 40 MG TAB PO SCH (08:08)
[2017-01-18] MEDS: RANITIDINE HCL 150 MG TAB PO SCH (08:08)
[2017-01-18] MEDS: CALCITRIOL 0.25 MCG CAP PO SCH (08:08)
[2017-01-18] MEDS: ASPIRIN 81 MG ECTAB PO SCH (08:08)
[2017-01-18] MEDS: DOCUSATE SODIUM 100 MG CAP PO SCH (08:09)
[2017-01-18] MEDS ORDERED: POTASSIUM CHLORIDE 10 MEQ TABCR PO SCH (09:00)
[2017-01-18] MEDS ORDERED: PANTOprazole SOD 40 MG TAB PO SCH (09:00)
[2017-01-18] MEDS ORDERED: VILANTEROL PO SCH (09:00)
[2017-01-18] MEDS ORDERED: FLUTICASONE FUROATE PO SCH (09:00)
[2017-01-18] MEDS ORDERED: FLUTICASONE FUROATE-VILANTEROL 200/25 MCG INH INH SCH (09:00)
[2017-01-18] MEDS ORDERED: [UNRECOGNIZED DRUG - OTHER] PO SCH (09:00)
[2017-01-18] MEDS: LORAZEPAM 0.5 MG TAB PO PRN (11:15)
[2017-01-18] MEDS ORDERED: ESCITALOPRAM OXALATE 10 MG TAB PO SCH (11:30)
--- NOTE | 2017-01-18 11:46 | Cardiology Follow-Up ---
Subjective General Date of Service: Jan 18, 2017. Chief Complaint: Chest pain Pt evaluation today including: conversation w/ patient, conversation w/ family , physical exam, chart review, lab review, review of studies, review of inpatient medication list History of Present Illness Patient seen and examined. Daughter at bedside. Following excessive sodium intake (hotdog and pizza) patient experienced indigestion, hypertensive urgency, panic then an asthma attack. Notes increased worry, anxiety - selling longstanding collectables, downsizing. No further chest discomfort since admission. EKG and cardiac enzymes negative. TTE pending. BP's have improved with sublingual nitroglycerin followed by an additional 50 mg PO losartan. Allergies Coded Allergies: Dipyridamole (Verified Allergy, Severe, ANAPHYLAXIS, 12/09/14) Edetic Acid (Verified Allergy, Severe, ANAPHYLAXIS, 12/09/14) Propylene Glycol (Verified Allergy, Severe, ANAPHYLAXIS, 12/09/14) Regadenoson (Verified Allergy, Severe, ANAPHYLAXIS, 12/09/14) NSAIDs (Verified Allergy, Mild, per patient, document photographer recommended not to take, 12/09/14) Sulfamethoxazole (Verified Allergy, Mild, RASH, 12/09/14) Trimethoprim (Verified Allergy, Mild, RASH, 12/09/14) Social History Smoking Status: Never Smoker Hx Tobacco Use In Past Year?: No Hx Alcohol Use - Type And Amou: Yes (VERY RARELY A GLASS OF WINE) Hx Substance Use - Type And Am: No Problem List Medical Problems: (1) Precordial chest pain Status: Acute Physical Exam Vital Signs Last Vital Signs Documentation Date Time Temp Pulse Resp B/P (MAP) Pulse Ox O2 Delivery O2 Flow Rate FiO2 01/18/17 08:00 Room Air 01/18/17 07:15 36.7 54 18 151/78 (102) 96 Physical Exam Constitutional: General Apperance: overweight Level of Distress: NAD Ambulation: ambulating normally Psychiatric: Mental Status: active & alert, anxious Orientation: to time, to place, to person Memory: recent memory normal, remote memory normal Head: normocephalic, atraumatic Eyes: Pupils: PERRLA Neck: pertinent finding (Normal JVP. + HJR) Lungs: Respiratory effort: no dyspnea Auscultation: breath sounds normal, no wheezing, no rales/crackles, no rhonchi Cardiovascular: Heart Auscultation: RRR, no rubs, II/ KISHAN Abdomen: Bowel Sounds: normal Inspection & Palpation: soft Liver: non-tender Extremities: no cyanosis, no edema, no clubbing, no ulcers, varicosities Neurologic: Cranial Nerves: grossly intact Assessment and Plan Assessment and Plan Complex 86-year-old female with history of longstanding labile hypertension, paroxysmal atrial fibrillation, diastolic congestive heart failure with markedly labile volume status, intermittent hyponatremia and hypokalemia. Patient admitted to [facility] with hypertensive urgency precipitated by excessive sodium intake as well as significant anxiety. Options discussed with patient and daughter at length. Will utilize PRN lorazepam as well as initiate Lexapro 5 mg/day (likely increasing to 10 mg/day in one week). Losartan will be increased from 50 mg/day to 50 mg twice a day for additional blood pressure control with a follow-up basic metabolic panel to be obtained next week given concurrent use of spironolactone as well as potassium supplementation. PRN sublingual nitroglycerin followed by PRN Hydralazine to be utilized as directed for SBP greater than 185 mm Hg at home. Outpatient Cardiology follow-up arranged on Monday. Laboratory Results Last 24 Hours Test 01/17/17 16:06 01/18/17 05:37 Total Creatine Kinase 78 U/L Creatine Kinase MB 1.3 ng/ml Creatine Kinase MB Ratio 1.7 Troponin I < 0.015 ng/ml White Blood Count 5.59 K/uL Red Blood Count 3.72 M/uL Hemoglobin 11.3 g/dL Hematocrit 34.7 % Mean Corpuscular Volume 93.3 fL Mean Corpuscular Hemoglobin 30.4 pg Mean Corpuscular Hemoglobin Concent 32.6 g/dl RDW Standard Deviation 50.8 fL RDW Coefficient of Variation 15.0 % Platelet Count 182 K/uL Mean Platelet Volume 9.8 fL Prothrombin Time 22.9 SECONDS Prothromb Time International Ratio 2.1 Sodium Level 141 mmol/L Potassium Level 3.7 mmol/L Chloride Level 106 mmol/L Carbon Dioxide Level 28 mmol/L Anion Gap 7.0 mmol/L Blood Urea Nitrogen 33 mg/dl Creatinine 1.20 mg/dl Est Creatinine Clear Calc Drug Dose 32.1 ml/min Estimated GFR () 47.7 Estimated GFR (Non- 41.2 BUN/Creatinine Ratio 27.6 Random Glucose 86 mg/dl Calcium Level 8.9 mg/dl
--- NOTE | 2017-01-18 12:06 | ECHOCARDIOGRAM REPORT ---
*NOTICE TO RECEIVING [employer] This information is strictly Confidential and protected under [place] law. [place] law prohibits you from making any further disclosure of this information unless further disclosure is expressly permitted by the written consent of the person to whom it pertains or is authorized by law. A general authorization for the release of medical or other information is not sufficient for this purpose. Hospital accepts no responsibility if the information is made available to any other person, INCLUDING THE PATIENT. Interpretation Summary * Name: JOANN VILLANUEVA Study Date: 01/18/2017 08:53 AM BP: 151/78 mmHg * Patient Location: [facility]\S\N283\S\2 HR: 54 * : 1930 (M/d/yyy) Gender: Female Height: 59 in * Age: 86 yrs Ethnicity: [place] Weight: 183 lb * Ordering Physician: Leisa Fernandes * Referring Physician: Self, Referred * Performed By: Adilene Lofton RDCS * * Reason For Study: HTN, CAD, HTN URGENCY OVERNIGHT WITH CP * BSA: 1.8 m2 * -- Conclusions -- * No significant change compared to previous study of 03/17/15. * Normal LV chamber size with mild concentric LVH. * Normal LV systolic function, EF 65-70%. * No segmental left ventricular wall motion abnormalities are noted. * Grade I diastolic dysfunction. * Aortic valve sclerosis mild, without significant aortic valvular stenosis. * Mild mitral annular calcifications. * Mild tricuspid regurgitation. Procedure Details * A contrast injection of Definity was performed to improve assessment of LV function. * Contrast was injected into an intravenous site in the left arm. * One vial of Definity ultrasound contrast was diluted in normal saline to a total volume of 10 ml. A total of '2' ml of solution was administered during imaging. * Lot # [id number] of Definity utilized for procedure. * Expiration date MAR 01. * The attending nurse who injected the contrast agent was AUSTYN CORNEJO RN. Left Ventricle * The left ventricle is normal in size. * There is mild concentric left ventricular hypertrophy. * Ejection Fraction = 65-70%. * Left ventricular systolic function is normal. * No segmental left ventricular wall motion abnormalities are noted. * The left ventricular wall motion is normal. Right Ventricle * The right ventricular cavity size is normal (basal dimension <4.2 cm in right ventricular apical 4-chamber view). * The right ventricular systolic function is normal as assessed by tricuspid annular plane systolic excursion (TAPSE) (normal >1.5 cm). Atria * The left atrial size is normal. * Right atrial size is normal. * No ASD detected; PFO is not assessed. Mitral Valve * There is mild mitral annular calcification. * There is no mitral valve stenosis. * There is trace mitral regurgitation. Tricuspid Valve * The tricuspid valve anatomy is normal. * There is no tricuspid stenosis. * There is mild tricuspid regurgitation. Aortic Valve * The aortic valve is not well visualized. * Aortic valve sclerosis mild, without significant aortic valvular stenosis. * There is no significant aortic regurgitation. Pulmonic Valve * The pulmonary valve is not well seen, but the Doppler examination is normal without significant regurgitation or stenosis. Great Vessels * The aortic root is normal size. Pericardium/Pleural * There is no pericardial effusion. Left Ventricular Diastolic Function * Grade I diastolic dysfunction, (abnormal relaxation pattern). MMode 2D Measurements and Calculations IVSd 1.1 cm IVSs 1.4 cm LVIDd 3.8 cm LVIDs 2.8 cm LVPWd 1.6 cm LVPWs 2.2 cm IVS/LVPW 0.68 FS 27.2 % EDV(Teich) 62.8 ml ESV(Teich) 29.1 ml EF(Teich) 53.7 % EDV(cubed) 55.9 ml ESV(cubed) 21.6 ml EF(cubed) 61.4 % % IVS thick 33.5 % % LVPW thick 41.9 % LV mass(C)d 177.2 grams LV mass(C)dI 99.8 grams/m\S\2 LV mass(C)s 202.9 grams LV mass(C)sI 114.3 grams/m\S\2 SV(Teich) 33.7 ml SI(Teich) 19.0 ml/m\S\2 SV(cubed) 34.3 ml SI(cubed) 19.3 ml/m\S\2 Ao root diam 2.6 cm Ao root area 5.4 cm\S\2 LA dimension 3.7 cm LA/Ao 1.4 LVAd ap4 26.5 cm\S\2 LVLd ap4 7.7 cm EDV(MOD-sp4) 74.4 ml EDV(sp4-el) 77.3 ml LVAs ap4 14.6 cm\S\2 LVLs ap4 6.2 cm ESV(MOD-sp4) 28.8 ml ESV(sp4-el) 29.1 ml EF(MOD-sp4) 61.3 % EF(sp4-el) 62.3 % LVAd ap2 26.3 cm\S\2 LVLd ap2 7.2 cm EDV(MOD-sp2) 80.8 ml EDV(sp2-el) 81.3 ml LVAs ap2 14.5 cm\S\2 LVLs ap2 6.0 cm ESV(MOD-sp2) 27.8 ml ESV(sp2-el) 29.7 ml EF(MOD-sp2) 65.6 % EF(sp2-el) 63.4 % LVLd %diff -7.22 % EDV(MOD-bp) 80.4 ml LVLs %diff -2.98 % ESV(MOD-bp) 28.3 ml EF(MOD-bp) 64.8 % SV(MOD-sp4) 45.6 ml SI(MOD-sp4) 25.7 ml/m\S\2 SV(MOD-sp2) 53.0 ml SI(MOD-sp2) 29.8 ml/m\S\2 SV(MOD-bp) 52.1 ml SI(MOD-bp) 29.3 ml/m\S\2 SV(sp4-el) 48.1 ml SI(sp4-el) 27.1 ml/m\S\2 SV(sp2-el) 51.6 ml SI(sp2-el) 29.0 ml/m\S\2 Doppler Measurements and Calculations MV E max gomez 107.3 cm/sec MV A max gomez 103.0 cm/sec MV E/A 1.0 MV dec time 0.25 sec Ao V2 max 161.1 cm/sec Ao max PG 10.4 mmHg Ao max PG (full) 5.8 mmHg LV V1 max PG 4.6 mmHg LV V1 max 106.8 cm/sec TR max gomez 256.4 cm/sec
[2017-01-18] MEDS ORDERED: LOSA50TA6 PO ×3 (13:35→15:17)
[2017-01-18] MEDS ORDERED: ASPEC81 PO (13:35)
[2017-01-18] MEDS ORDERED: LXP10 PO (13:35)
[2017-01-18] MEDS ORDERED: ASPI-435 PO ×3 (13:38→14:10)
--- NOTE | 2017-01-18 14:45 | Discharge Instructions ---
Discharge Instructions Date of Service Jan 18, 2017. Admission Reason for Admission: Precordial Chest Pain Discharge Discharge Diagnosis / Problem: Hypertensive urgency Discharge Goals Goal(s): Improve disease control, Learn about illness Activity Recommendations Activity Limitations: resume your previous activity . Instructions / Follow-Up Instructions / Follow-Up Please take all medications as prescribed. Your losartan was changed from 50 mg daily to 75 mg before bed. Please take hydralazine 10 mg every 12 hours as needed for systolic blood pressure greater than 185 mmHg. Your new medications are aspirin 81 mg daily and Lexapro 5 mg daily. You have an appointment with Dr. Cate Stone at [facility] at 10:45 am on Monday01/20/17. You will need labs done basic metabolic profile done in 1 week. Please follow up with Dionicio Morrison PA-C with cardiology. It was a pleasure taking care of you! Call if you have any questions or problems. You can reach a [place] Hospitalist on duty at [facility] 24 hours a day by calling [phone]. Take care of yourself. Jennifer Goldberg PA-C [facility] Medicine Current Hospital Diet Patient's current hospital diet: Low Sodium Diet (2gm Na) Discharge Diet Recommended Diet: AHA Diet (Heart Healthy) Pending Studies Studies pending at discharge: no Medical Emergencies . Who to Call and When: Medical Emergencies: If at any time you feel your situation is an emergency, please call 911 immediately. . Non-Emergent Contact Non-Emergency issues call your: Primary Care Provider . . "Provider Documentation" section prepared by Jennifer Goldberg. . VTE Core Measure Inpt VTE Proph given/why not?: Warfarin (Coumadin)
[2017-01-18] MEDS ORDERED: PERFLUTREN LIPID MICROSPHERE (DEFINITY) IV ONE (15:18)
[2017-01-18] MEDS ORDERED: CZR25 PO (15:53)
--- NOTE | 2017-01-18 16:21 | Progress Note ---
Medicine Progress Note Date & Time of Visit: Jan 18, 2017 at 15:58. (Jennifer Goldberg PA-C) Subjective Patient seen after being admitted yesterday morning for chest pain and hypertensive urgency. She reports doing well today. Since admission she denies any recurrent chest pain or SOB. She is no longer feeling anxious. She is eating well. Has ambulated in the hallway without issues. Denies dizziness, LOYD, vision change, palpitations, nausea, vomiting, increased LE edema. (Jennifer Goldberg PA-C) Objective Last 8 Hrs Date Time Temp Pulse Resp B/P (MAP) Pulse Ox O2 Delivery O2 Flow Rate FiO2 01/18/17 14:40 127/70 (89) 01/18/17 14:23 36.5 57 16 97 Room Air 01/18/17 13:30 150/72 (98) 01/18/17 12:00 Room Air 01/18/17 11:42 36.5 57 16 154/81 (105) 97 Room Air 01/18/17 08:00 Room Air Physical Exam: General-pleasant alert 86 y/o female, sitting in bedside chair, no distress Eyes-anicteric ENT-hearing grossly intact Neck-trachea midline, no JVD Lungs-CTA bilaterally, no wheezes, rhonchi, or crackles, no respiratory distress , + anterior chest wall tenderness Heart- regular rate and rhythm, no murmur Abdomen-soft, nontender, normal bowel sounds Extremities-trace chronic swelling bilateral LE, no calf tenderness Neuro-alert and oriented x 3, affect normal, no focal deficit on gross exam Laboratory Results: Last 24 Hours Test 01/17/17 16:06 01/18/17 05:37 Total Creatine Kinase 78 U/L Creatine Kinase MB 1.3 ng/ml Creatine Kinase MB Ratio 1.7 Troponin I < 0.015 ng/ml White Blood Count 5.59 K/uL Red Blood Count 3.72 M/uL Hemoglobin 11.3 g/dL Hematocrit 34.7 % Mean Corpuscular Volume 93.3 fL Mean Corpuscular Hemoglobin 30.4 pg Mean Corpuscular Hemoglobin Concent 32.6 g/dl RDW Standard Deviation 50.8 fL RDW Coefficient of Variation 15.0 % Platelet Count 182 K/uL Mean Platelet Volume 9.8 fL Prothrombin Time 22.9 SECONDS Prothromb Time International Ratio 2.1 Sodium Level 141 mmol/L Potassium Level 3.7 mmol/L Chloride Level 106 mmol/L Carbon Dioxide Level 28 mmol/L Anion Gap 7.0 mmol/L Blood Urea Nitrogen 33 mg/dl Creatinine 1.20 mg/dl Est Creatinine Clear Calc Drug Dose 32.1 ml/min Estimated GFR () 47.7 Estimated GFR (Non- 41.2 BUN/Creatinine Ratio 27.6 Random Glucose 86 mg/dl Calcium Level 8.9 mg/dl (Jennifer Goldberg PA-C) Assessment & Plan CHEST PAIN Likely 2/2 hypertensive urgency History of nonobstructive CAD, however no evidence for ACS- EKG unchanged, serial cardiac enzymes negative, echo- no wall motion abnormality, no arrhythmias on telemetry CXR unremarkable Echo- No significant change compared to previous study of 03/17/15. * Normal LV chamber size with mild concentric LVH. * Normal LV systolic function, EF 65-70%. * No segmental left ventricular wall motion abnormalities are noted. * Grade I diastolic dysfunction. * Aortic valve sclerosis mild, without significant aortic valvular stenosis. * Mild mitral annular calcifications. * Mild tricuspid regurgitation. HYPERTENSIVE URGENCY Presented with BP up to 200's [employer]ICE [employer], up to 180's in ER Meds adjusted by cardiology, discussed with Dionicio Morrison PA-C, Losartan was changed from 50 mg daily to 75 mg HS, continued on PRN hydralazine 10 mg BID PRN SBP >185 mmHg, continued on home doses of Coreg, Imdur, spironolactone, furosemide BMP in one week- Rx given to patient's daughter Follow up with cardiology ANXIETY Lexapro 5 mg/ day started by cardiology, will defer to PCP for titration PRN lorazepam CHRONIC DIASTOLIC CHF Compensated Low sodium diet and Lasix NONOBSTRUCTIVE CAD Continue aspirin, statin, beta ced, Imdur, PRN nitro PAROXYSMAL ATRIAL FIBRILLATION Rate controlled; continue Coreg INR therapeutic; continue Coumadin HYPOTHYROIDISM Continue levothyroxine ASTHMA Not in acute exacerbation Continue home inhalers DVT PROPHYLAXIS Coumadin and SCD's CODE STATUS Full code per admitting provider's documentation DISPOSITION Discharge to home today F/u with PCP and cardiology Patient seen in collaboration with Dr. Fernandes. Please see her addendum. Current Inpatient Medications: Current Inpatient Medications Medications (Trade) Dose Ordered Sig/Hannah Route Start Time Stop Time Status Last Admin Dose Admin Acetaminophen (Tylenol Tab) 650 mg Q4H PRN PO 01/17/17 09:00 02/16/17 08:59 Ondansetron HCl (Zofran Inj) 4 mg Q6H PRN IV 01/17/17 09:00 02/16/17 08:59 Nitroglycerin (Nitrostat Tab) 0.4 mg UD PRN SL 01/17/17 09:00 02/16/17 08:59 Polyethylene (Miralax Powder Packet) 17 gm DAILY PRN PO 01/17/17 09:00 02/16/17 08:59 Aspirin (Ecotrin Tab) 81 mg QAM PO 01/17/17 09:00 02/16/17 08:59 01/18/17 08:08 81 MG Allopurinol (Zyloprim Tab) 200 mg QAM PO 01/17/17 09:54 02/16/17 09:53 01/18/17 08:07 200 MG Atorvastatin Calcium (Lipitor Tab) 40 mg QPM PO 01/17/17 21:00 02/16/17 20:59 01/17/17 20:43 40 MG Budesonide (Pulmicort Respules 0.5MG/ 2ML Neb Soln) 2 mg Q12R PRN INH 01/17/17 09:30 02/16/17 09:29 Calcitriol (Rocaltrol Cap) 0.25 mcg QAM PO 01/17/17 09:54 02/16/17 09:53 01/18/17 08:08 0.25 MCG Fexofenadine HCl (Loraine Tab) 180 mg DAILY PO 01/17/17 09:55 02/16/17 09:54 01/18/17 08:07 180 MG Folic Acid (Folvite Tab) 1 mg DAILY PO 01/17/17 09:56 02/16/17 09:55 01/18/17 08:08 1 MG Furosemide (Lasix Tab) 40 mg DAILY PO 01/17/17 09:56 02/16/17 09:55 01/18/17 08:08 40 MG Levalbuterol (Xopenex 0.63 Mg/ 3 Ml Neb) 0.63 mg Q6 PRN INH 01/17/17 09:30 02/16/17 09:29 Levalbuterol (Xopenex Hfa Inhaler) 2 puffs Q4 PRN INH 01/17/17 09:30 02/16/17 09:29 Levothyroxine Sodium (Synthroid Tab) 137 mcg DAILYBB PO 01/17/17 09:57 02/16/17 09:56 01/18/17 05:57 137 MCG Lorazepam (Ativan Tab) 0.25 mg BID PRN PO 01/17/17 09:30 02/16/17 09:29 01/18/17 11:15 0.25 MG Fish Oil ([place]-3 (Purified Fish Oil) Cap) 1 gm DAILY PO 01/17/17 09:58 02/16/17 09:57 01/18/17 08:07 1 GM Spironolactone (Aldactone Tab) 12.5 mg QAM PO 01/17/17 09:59 02/16/17 09:58 01/18/17 08:06 12.5 MG Carvedilol (Coreg Tab) 25 mg DAILY@1700 PO 01/17/17 17:00 02/16/17 16:59 01/17/17 16:47 25 MG Furosemide (Lasix Tab) 20 mg MoFr@0900 PO 01/20/17 09:00 02/19/17 08:59 Isosorbide Mononitrate (Imdur Ext Rel Tab) 120 mg DAILY@2200 PO 01/17/17 22:00 02/16/17 21:59 01/17/17 22:12 120 MG Losartan Potassium (coZAAR TAB) 50 mg DAILY@2200 PO 01/17/17 22:00 02/16/17 21:59 01/17/17 22:13 50 MG Potassium Chloride (Klor-Con M10) 10 meq MoWeFr@0900 PO 01/18/17 09:00 02/17/17 08:59 01/18/17 08:09 10 MEQ Ranitidine HCl (zANTac TAB) 150 mg QAM PO 01/17/17 10:00 02/16/17 09:59 01/18/17 08:08 150 MG Ranitidine HCl (zANTac TAB) 300 mg DAILY@1800 PO 01/17/17 18:00 02/16/17 17:59 01/17/17 17:49 300 MG Warfarin Sodium (Coumadin Tab) 2.5 mg SuTuWeThSa@1600 PO 01/17/17 16:00 02/16/17 15:59 01/17/17 16:37 2.5 MG Warfarin Sodium (Coumadin Tab) 5 mg MoFr@1600 PO 01/20/17 16:00 02/19/17 15:59 Docusate Sodium (coLACE CAP) 100 mg BID PO 01/17/17 21:00 02/16/17 20:59 01/18/17 08:09 100 MG Miscellaneous (Iv Fluids Completed) 1 ea PRN PRN N/A 01/17/17 11:30 01/17/18 11:29 Azelastine HCl (Astelin Nasal [place]) 2 sprays BID NA 01/17/17 21:00 02/16/17 20:59 01/18/17 08:07 2 SPRAYS Carvedilol (Coreg Tab) 12.5 mg DAILY@0700 PO 01/18/17 07:00 02/16/17 09:59 01/18/17 06:01 12.5 MG Pantoprazole Sodium (Protonix Tab) 40 mg 0900,1800 PO 01/18/17 09:00 02/16/17 09:58 01/18/17 08:10 40 MG Nystatin (Mycostatin Susp) 5 ml QID PO 01/17/17 21:00 01/27/17 20:59 01/18/17 12:28 5 ML Fluticasone/ Vilanterol (Breo Ellipta 200-25 Mcg/Inh) 1 inha QAM INH 01/18/17 09:00 02/17/17 08:59 01/18/17 08:06 1 INHA Calcium Carbonate (oS-Tyson 500 TAB) 1,250 mg HS PO 01/17/17 21:00 02/16/17 20:59 01/17/17 22:12 1,250 MG Gabapentin (Neurontin Cap) 100 mg DAILY@2200 PO 01/18/17 22:00 02/16/17 21:59 01/17/17 22:45 100 MG Escitalopram Oxalate (Lexapro Tab) 5 mg QAM PO 01/18/17 11:30 02/17/17 11:29 01/18/17 12:28 5 MG (Ashlyn, A., PA-C) ADDENDUM: I have seen and evaluated the patient and agree with the assessment and plan as stated above. DO Dom (Leisa Fernandes, DO)
[2017-01-18] MEDS ORDERED: GABAPENTIN 100 MG CAP PO SCH (22:00)
--- NOTE | 2017-01-19 09:04 | Discharge Summary ---
Discharge Summary Date of Service Jan 19, 2017. Discharge Summary Admission Date: Jan 17, 2017 at 07:56 Discharge Date: Jan 18, 2017 Discharge Disposition: Home Principal Diagnosis: Chest pain, Hypertensive urgency Secondary Diagnoses/Problems: Anxiety Chronic diastolic CHF Nonobstructive CAD PAF Hypothyroidism Asthma Consultations: Cardiology Pending Studies/Follow-Up: JON on 01/25/17 (Rx given to daughter) Medication Reconciliation New Medications: Losartan Potassium (Cozaar) 50 Mg Tab 75 MG PO HS for 30 Days, #45 TAB Escitalopram Oxalate (Escitalopram Oxalate) 10 Mg Tab 5 MG PO QAM for 30 Days, #15 TAB 10 mg tabs. Take 5 mg (one half tab) by mouth daily. Continued Medications: Allopurinol (Allopurinol) 100 Mg Tab 200 MG PO QAM Aspirin (Aspirin 81) 81 Mg Tab 81 MG PO DAILY Atorvastatin (Lipitor) 40 Mg Tab 40 MG PO QPM Azelastine Hcl (Astelin Nasal [place]) 200 Sprays/30 Ml [place] 1 SPRAYS NA BID, BTL Budesonide (Pulmicort Respules 0.5MG/2ML) 0.5 Mg/2 Ml Nebu 4 ML NEB Q12 PRN for RESP TREATMENT, EA Calcitriol (Rocaltrol Cap) 0.25 Mcg Cap 0.25 MCG PO QAM Calcium Carbonate (Calcium 600) 1,500 Mg Tab 1500 MG PO HS Carvedilol (Coreg) 25 Mg Tab 12.5 MG PO QAM Carvedilol (Carvedilol) 25 Mg Tab 25 MG PO HS, TAB Denosumab (Prolia) 60 Mg/Ml Reyn[place] 60 MG SQ [id number] Docusate Sodium (Colace) 100 Mg Cap 100 MG PO BID, CAP Fexofenadine Hcl (Loraine Allergy) 180 Mg Tab 180 MG PO DAILY, 2 Refills Fluticasone Furoate-Vilanterol (Breo Ellipta 200-25 Mcg/INH) 1 Inh Inh 1 INHA PO QAM Folic Acid (Folvite) 1 Mg Tab 1 TAB PO DAILY, 1 Refill Furosemide (Lasix) 40 Mg Tab 1 TAB PO DAILY, 5 Refills TAKE 40MG IN THE MORNING OF MONDAYS AND FRIDAYS Furosemide (Lasix) 40 Mg Tab 0.5 TAB PO 2XWK, 3 Refills TAKE 20MG IN THE AFTERNOON OF MONDAYS AND FRIDAYS Gabapentin (Neurontin) 100 Mg Cap 300 MG PO HS, CAP Hydralazine Hcl (Apresoline) 10 Mg Tab 10 MG PO BID PRN for HTN, TAB Take 10 mg by mouth twice per day as needed for systolic blood pressure greater than 185 mmHg. Isosorbide Mononitrate Ext Rel (Imdur Ext Rel) 120 Mg Ertab 120 MG PO DAILY AT 10PM, TAB Levalbuterol (Levalbuterol HCl) 0.63 Mg/3 Ml Nebu 3 ML NEB Q6 PRN for SOB/Wheezing Levalbuterol Tartrate (Levalbuterol Tartrate Hfa) 45 Mcg/Act Aer 2 PUFFS PO Q4 PRN for Shortness of Breath FOR TRAVEL Levothyroxine Sodium (Levothyroxine Sodium) 137 Mcg Tab 1 TAB PO QAM, TAB 3 Refills Lorazepam (Ativan) 0.5 Mg Tab 0.5-1 TAB PO BID PRN for Anxiety Nitroglycerin (Nitrostat) 0.4 Mg Sub 0.4 MG UT UD PRN for Chest Pain [id number]-[id number] Ethyl Esters ([place]-3) 1 Cap Cap 1 CAP PO DAILY, CAP Pantoprazole (Protonix) 40 Mg Tab 40 MG PO BID, #30 TAB Potassium Chloride (Micro-K Ext Rel) 10 Meq Capcr 10 MEQ PO 2XWK TAKE DAILY ON MONDAYS AND FRIDAYS ON WITH EXTRA LASIX Ranitidine Hcl (Zantac) 150 Mg Tab 1 TAB PO QAM, 5 Refills Ranitidine Hcl (Zantac) 150 Mg Tab 2 TAB PO QPM, 3 Refills Spironolactone (Aldactone) 25 Mg Tab 12.5 MG PO QAM, TAB Warfarin Sod (Coumadin) 2.5 Mg Tab 2 TAB PO 2XWK, 3 Refills TAKE 5 MG DAILY ON MONDAYS AND FRIDAYS Warfarin Sod (Coumadin) 2.5 Mg Tab 1 TAB PO 5XWK TAKE 2.5MG DAILY ON MON/MON//MON/SUNDAYS Admission Information HPI (per Admitting provider): 86 yo F with hypertensive heart disease (non-obstructive CAD per cath 2011) and history of labile HTN w h/o lacunar stroke presents with substernal chest pain last night that began after she had returned from using the restroom in the middle of the night. She describes it "felt like heartburn" and states that she was burping alot. She reports the pain being sharp and radiating into the L jaw and under the L breast. She reports taking her blood pressure twice with readings of 202 systolic and 206 systolic, respectively. This made her anxious and worried, and she states that her breathing got worse and she developed nausea. She denies lightheadedness, numbness in her extremities, stroke like symptoms or wheezing or diaphoresis. She states that her daughter with whom she lives arrived in the room and gave her a nebulizer treatment. Although she has nitro and hydralazine PRN SBP>200, they decided to not take this and call 911 instead. She was transferred by ambulance to the ER and en route received 325mg ASA. Upon arrival to the ER, she had the chest pain until taking one dose of nitro which completely resolved it. In the ER, VSS, she is mentating well, CXR was negative for acute disease, EKG reading SR60 1AVB and q waves present in V1-3 is unchanged from prior on 01/27. Current BP is 178/74. Over the past few weeks she denies feeling poorly, specifically denying chest pain, nausea, vomiting, diarrhea, abdominal pain, blood per rectum, cough, fevers, chills. She reports that her asthma is well controlled, only having one asthma exacerbation one month ago which was managed as outpatient, and long-standing controlled disease prior to that. She does report minor headaches on occasion , shortness of breath with exertion which is chronic and unchanged, and chronic constipation. At baseline she is alert and appropriate, ambulates with a walker , and accomplishes most ADLs herself except for showering which her daughter assists with. She and her live with her son and daughter (present at bedside). Daughter corroborates story reported above. Physical Exam (per Admitting): GEN: obese, elderly, in no acute distress, alert and appropriate HEENT: NC/AT, pupils equal and round bilaterall, normal sclerae, MMM CARDIO: reg rate, S1/2 heard without m/g/r, no edema, 2+ pulses throughout LUNGS: CTA bilaterally, no crackles, rales or wheezes, good diaphragmatic excursion ABD: soft, mild diffuse tenderness, non-distended, no rebound or guarding, +BS EXTREMITY: fatty tumor on RUE, small round coin-sized areas of ecchymosis present on RUE (2) and LUE (1), extremities are warm and well-perfused NEURO: CN 2-12 grossly intact, sensation intact throughout, no gross focal deficits. MUSC: 5/5 strength throughout, no gross focal deficits SKIN: warm and dry and as above. Hospital Course Patient presented to ER by ambulance on 01/17/17 for chest pain, home SBP's of 202 and 206 CHLORINATOR. SBP was high as 180 in ER. Pt received ASA 325 mg en route. Nitro was given in ER which resolved the chest pain. In the ER, initial troponin was negative, EKG was unchanged, and CXR showed no acute process. She was admitted to telemetry and cardiology was consulted. Workup for ACS was negative: EKG was unchanged, serial cardiac enzymes were negative, TTE showed no wall motion abnormality, no significant arrhythmias were noted on telemetry. Antihypertensive regimen was adjusted by cardiology with improvement of her BP. Upon discharge, losartan was changed from 50 mg daily to 75 mg HS. She was continued on hydralazine 10 mg BID PRN SBP >185 mmHg and home doses of Coreg, Imdur, spironolactone, furosemide, nitro PRN chest pain. She was continued on aspirin and statin for h/o nonobstructive CAD and warfarin for stroke prophylaxis in Afib. She was continued on PRN lorazepam and started on Lexapro for anxiety control by cardiology. Will defer to PCP for titration. Given losartan adjustment, patient needs BMP in one week (Rx given to patient's daughter). Appointment made with PCP Dr. Cate Stone. Cardiology appointment being arranged by Dionicio Morrison PA-C. On day of discharge she was afebrile and hemodynamically stable and physical exam was unremarkable. She was mentating and ambulating at baseline and was tolerating PO. She was sent home in stable condition. Total time spent on discharge = 60 minutes This includes examination of the patient, discharge planning, medication reconciliation, and communication with other providers. Discharge Instructions Discharge Instructions Date of Service Jan 18, 2017. Admission Reason for Admission: Precordial Chest Pain Discharge Discharge Diagnosis / Problem: Hypertensive urgency Discharge Goals Goal(s): Improve disease control, Learn about illness Activity Recommendations Activity Limitations: resume your previous activity . Instructions / Follow-Up Instructions / Follow-Up Please take all medications as prescribed. Your losartan was changed from 50 mg daily to 75 mg before bed. Please take hydralazine 10 mg every 12 hours as needed for systolic blood pressure greater than 185 mmHg. Your new medications are aspirin 81 mg daily and Lexapro 5 mg daily. You have an appointment with Dr. Cate Stone at [facility] at 10:45 am on Monday01/20/17. You will need labs done basic metabolic profile done in 1 week. Please follow up with Dionicio Morrison PA-C with cardiology. It was a pleasure taking care of you! Call if you have any questions or problems. You can reach a [facility] hospitalist on duty at [facility] 24 hours a day by calling [phone]. Take care of yourself. Jennifer Goldberg PA-C [facility] Medicine Current Hospital Diet Patient's current hospital diet: Low Sodium Diet (2gm Na) Discharge Diet Recommended Diet: AHA Diet (Heart Healthy) Pending Studies Studies pending at discharge: no Medical Emergencies . Who to Call and When: Medical Emergencies: If at any time you feel your situation is an emergency, please call 911 immediately. . Non-Emergent Contact Non-Emergency issues call your: Primary Care Provider "Provider Documentation" section prepared by Jennifer Goldberg. . VTE Core Measure Inpt VTE Proph given/why not?: Warfarin (Coumadin) Additional Copies To Goran Benjamin M.D.; Cate Stone M.D.
[2017-01-20] MEDS ORDERED: FUROSEMIDE 20 MG TAB PO SCH (09:00)
[2017-01-20] MEDS ORDERED: WARFARIN SOD 5 MG TAB PO SCH (16:00)
== END 2017-01-18 16:03 | disposition home or self-care (01) ==
LOC: EDBD 04:03 → C.EDA 04:04 → C.MED 07:56 → ENRESERV 08:35
PROVIDERS: ADMIT Hospitalist; ATTEND Hospitalist
DX: I13.0 Hypertensive heart and chronic kidney disease with heart failure and stage 1 through stage 4 chronic kidney disease, or unspecified chronic kidney disease (principal); R07.89 Other chest pain; I25.10 Atherosclerotic heart disease of native coronary artery without angina pectoris; I48.0 Paroxysmal atrial fibrillation; J45.909 Unspecified asthma, uncomplicated; I10 Essential (primary) hypertension; F41.9 Anxiety disorder, unspecified; E03.9 Hypothyroidism, unspecified; K21.9 Gastro-esophageal reflux disease without esophagitis; M81.0 Age-related osteoporosis without current pathological fracture; N18.3 Chronic kidney disease, stage 3 (moderate); I51.9 Heart disease, unspecified; I50.32 Chronic diastolic (congestive) heart failure; Z79.01 Long term (current) use of anticoagulants; Z79.899 Other long term (current) drug therapy; Z85.850 Personal history of malignant neoplasm of thyroid

== ENCOUNTER → 2017-02-28 | Outpatient (CLI) | payer OTHER ==
[~2017-02-28] MED LIST changes: -ADVIN50/60 INH; -ARFO15NE INH; +ASPI-435 PO; -ASPI1TAB83 PO; +ASTN; -BUDE0.5S INH; -CALC-393 PO; +CALC-50 PO; -CARV25TA PO; -CEPH500C2 PO; -CHOL100010 PO; -CLOTCRE33 TOP; +CMD/25 PO; +CRG25 PO; +DOCU-94 PO; -DOCU50CA2 PO; -ENOX1INJ10 SQ; +FEXO1TAB49 PO; +FLUT1INH7 PO; +FOLI1TAB7 PO; -FOLI400T41 PO; -FRS/40 PO; +FURO40TA3 PO; +GABA-112 PO; +HYDR-4715 PO; -IMDSR60 PO; +ISOS120T5 PO; -LANS30CA12 PO; -LEVA0.63 INH; +LEVA45AE PO; -LEVAAER2 INH; -LEVO100T PO; +LEVO137T3 PO; -LORA10TA44 PO; -LOSA50TA6 PO; +LXP10 PO; -MONT1TAB3 PO; -MULT-506 PO; -NYSS/ MT; -NYST1POW7 TOP; +OMEG-112 PO; -OMEG340C PO; +PANT40TA PO; +PLMINSR5 NEB; +POTA10CA28 PO; -PSYL0.524 PO; +RANI150T3 PO; -SALI1SPR3 NAE; -TRIA3AER NAE; +XPNINS NEB; -ZNT150 PO
--- NOTE | 2017-02-28 16:23 | DIAGNOSTIC IMAGING REPORT ---
LUMBAR SPINE MIN 4 VIEWS HISTORY: 86 years-old Female RIGHT HIP PAIN acute low back and right hip pain. No reported trauma. COMPARISON: Lumbar spine radiographs 05/19/2015, CT 03/17/2015 TECHNIQUE: 5 views of the lumbar spine FINDINGS: Mild convex left curvature of the lumbar spine of 18 degrees is noted. Transitional lumbosacral anatomy redemonstrated with elongation of the transverse processes L5 with pseudoarticulation of the adjacent sacrum. 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 Background osteopenia. 8 mm anterolisthesis L4 on L5 is unchanged, likely secondary to advanced facet arthropathy. Multilevel advanced intervertebral disc space narrowing and facet arthropathy is again seen with multilevel endplate spurring. 20% anterior endplate compression of the L1 vertebral body is new from comparison 05/19/2015. No retropulsion identified. No additional compression deformity or malalignment identified. IMPRESSION: 1. Age-indeterminate 20% anterior endplate compression deformity of L1 is new from comparison study 05/19/2015 without significant retropulsion identified. 2. Multilevel advanced intervertebral disc space narrowing, endplate spurring and facet arthropathy as above. 3. Transitional lumbosacral anatomy. 4. Levoscoliosis. The above report was generated using voice recognition software. It may contain grammatical, syntax or spelling errors. Electronically signed by: Jonathan Pierre M.D. 02/28/2017 4:22 PM Dictated Date/Time: 02/28/2017 4:17 PM
== END | disposition home or self-care (01) ==
LOC: C.RDSM 11:16
PROVIDERS: ATTEND Internal Medicine
DX: M25.551 Pain in right hip (principal); S32.010A Wedge compression fracture of first lumbar vertebra, initial encounter for closed fracture; X58.XXXA Exposure to other specified factors, initial encounter; M51.36 Other intervertebral disc degeneration, lumbar region; M12.9 Arthropathy, unspecified; M41.80 Other forms of scoliosis, site unspecified; Q76.49 Other congenital malformations of spine, not associated with scoliosis

== ENCOUNTER 2017-12-30 09:44 | Emergency (ER) | payer OTHER, MEDICARE ==
[~2017-12-30] VITALS: Ht 147.3 cm; Wt 75.3 kg
[~2017-12-30 09:44] MED LIST changes: +CALC200S7; +CRFUDL PO; +ESCI10TA17 PO; -FOLI1TAB7 PO; +FOLI1TAB8 PO; +LOSA50TA6 PO; +LVQ750 PO; -LXP10 PO; -OMEG-112 PO; +TRIA1SPR4 NAE
[2017-12-30 10:01] VITALS: TEMP 36.4; Ht 147.3 cm; Wt 75.3 kg
[2017-12-30] MEDS ORDERED: SODIUM CHLORIDE 0.9% 1000ML 500 ML IV STA (10:08)
[2017-12-30] MEDS ORDERED: ONDANSETRON INJ 2 MG/ML 2 ML VIAL IV STA (10:08)
[2017-12-30 10:51] LABS: BASO % 0.5 %; BASO ABS # 0.04 K/uL (0-0.2); EOS % 3.7 %; HEMATOCRIT 35.7 % (37-47); HEMOGLOBIN 11.6 g/dL (12.0-16.0); IG# 0.02 K/uL (0.00-0.02); LYMPH % 23.4 %; LYMPH ABS # 1.91 K/uL (1.2-3.4); MEAN CELL VOLUME 89.9 fL (80-100); MEAN CORPUSCULAR HEMOGLOBIN 29.2 pg (25-34); MEAN CORPUSCULAR HGB CONC 32.5 g/dl (32-36); MONO % 9.2 %; MONO ABS # 0.75 K/uL (0.11-0.59); NEUT ABS # 5.13 K/uL (1.4-6.5); PLATELET COUNT 193 K/uL (130-400); RED CELL DISTRIBUTION WIDTH CV 16.8 % (11.5-14.5); RED CELL DISTRIBUTION WIDTH SD 54.8 fL (36.4-46.3); WHITE BLOOD COUNT 8.15 K/uL (4.8-10.8)
--- NOTE | 2017-12-30 10:51 | DIAGNOSTIC IMAGING REPORT ---
CHEST ONE VIEW PORTABLE CLINICAL HISTORY: 87 years-old Female presenting with left flank pain. TECHNIQUE: Portable upright AP view of the chest was obtained. COMPARISON: 03/10/2017. FINDINGS: Mild prominence of the thoracic aorta, unchanged from prior. Cardiac silhouette normal in size. Persistent bandlike opacity at the left lung base. No new focal opacity. No large effusion or pneumothorax. Prominent costochondral calcification Degenerative changes of the thoracic spine. Degenerative changes of the bilateral shoulders. Upper abdomen normal. IMPRESSION: 1. No acute cardiopulmonary disease. Electronically signed by: Fausto Schaeffer M.D. 12/30/2017 10:50 AM Dictated Date/Time: 12/30/2017 10:48 AM
[2017-12-30] MEDS ORDERED: CEFTRIAXONE SOD INJ 1 GM ADDVIAL IV STA (11:01)
[2017-12-30 11:02] LABS: INR 2.2 (0.9-1.1); PTT PATIENT 37.4 SECONDS (21.0-31.0)
--- NOTE | 2017-12-30 11:10 | DIAGNOSTIC IMAGING REPORT ---
ABD/PELVIS WITHOUT FOR STONE CLINICAL HISTORY: 87 years-old Female presenting with EVALUATE FLANK PAIN/HEMATURIA, burning sensation with urination. TECHNIQUE: Multidetector CT of the abdomen and pelvis was performed without the use of intravenous contrast. IV contrast: None. A dose lowering technique was used consistent with the principles of ALARA (as low as reasonably achievable). COMPARISON: 03/10/2017. CT DOSE (mGy.cm): The estimated cumulative dose is 1040.79 mGy.cm. FINDINGS: Scaler topogram: Unremarkable. Lung bases: Minimal basilar opacities, likely atelectasis. Mild multichamber enlargement of the heart. Coronary artery, aortic valve, and mitral annular calcification. No pericardial or pleural effusion. Liver: Congenital hypoplasia of the medial segments of the left hepatic lobe. Normal density. Biliary: No gross biliary ductal dilatation allowing for noncontrast technique. Gallbladder contains gallstones. Pancreas: Normal noncontrast appearance. Spleen: Normal noncontrast appearance. Splenule noted. Adrenal glands: Normal noncontrast appearance. Kidneys and ureters: Mild nonspecific perinephric fat stranding. Normal noncontrast appearance. No nephrolithiasis. No hydronephrosis. Normal ureters. Bladder: Normal. Dilatation of the urethra near the origin may suggest the presence of a diverticulum. This is not well visualized without intravenous contrast. Pelvic organs: Uterus surgically absent. No adnexal masses. Bowel: Diverticulosis of the distal sigmoid colon. No wall thickening or pericolonic inflammatory change. Appendix not visualized. No bowel obstruction. Moderate hiatal hernia. Peritoneal cavity: No free fluid or intraperitoneal gas. Lymph nodes: No gross lymphadenopathy allowing for noncontrast technique. Vasculature: Atherosclerosis of the normal caliber abdominal aorta. Abdominal wall: Fluid noted in the small right inguinal hernia, possibly an encysted hydrocele. Musculoskeletal: Degenerative changes of the spine. Compression deformity of L1. Anterolisthesis of L4 on L5. Findings are unchanged. IMPRESSION: 1. 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 This is suboptimally evaluated without intravenous contrast. 2. No nephrolithiasis or hydronephrosis. No CT evidence of cystitis though this does not exclude the diagnosis. 3. Cholelithiasis. 4. Limited diverticulosis. 5. Moderate hiatal hernia. Electronically signed by: Fausto Schaeffer M.D. 12/30/2017 11:08 AM Dictated Date/Time: 12/30/2017 11:00 AM
[2017-12-30 11:14] LABS: ALBUMIN 3.3 gm/dl (3.4-5.0); ALKALINE PHOSPHATASE 54 U/L (45-117); ALT/SGPT 21 U/L (12-78); AST/SGOT 21 U/L (15-37); BLOOD UREA NITROGEN 29 mg/dl (7-18); CALCIUM 8.8 mg/dl (8.5-10.1); CARBON DIOXIDE 29 mmol/L (21-32); CREATININE 1.42 mg/dl (0.60-1.20); GLUCOSE 89 mg/dl (70-99); LIPASE 219 U/L (73-393); POTASSIUM 3.5 mmol/L (3.5-5.1); SODIUM 135 mmol/L (136-145); TOTAL PROTEIN 6.9 gm/dl (6.4-8.2)
[2017-12-30] MEDS ORDERED: WARF2.5T8 PO (11:40)
[2017-12-30] MEDS ORDERED: CEFD300C2 PO (12:02)
[2017-12-30 12:09] VITALS: BP 119/65; PULSE 78; O2SAT 99
--- NOTE | 2017-12-30 15:28 | EMERGENCY ROOM VISIT NOTE ---
History Report prepared by Jillian: Anitha Saini Under the Supervision of: Dr. Abrahan Gonzalez M.D. 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 She is accompanied by her daughter who reports that for the past week, her mother has been complaining of left sided abdominal pain that radiates to her back, burning with urination, and bad indigestion. Pt has urinary frequency with decreased output but denies any fevers, nausea, or diarrhea. She rates her abdominal pain as a 5/10 in severity. Her daughter also states the patient has a hiatal hernia and and has a history of kidney infections and C-diff. The patient regularly takes Coumadin. 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 A total of 10 systems reviewed and were otherwise negative. Past Medical & Surgical Medical Problems: (1) Anticoagulated on Coumadin (2) Appendectomy (3) Asthma (4) Benign hypertension (5) Bronchitis (6) Chronic cough (7) Diastolic heart failure (8) GERD (gastroesophageal reflux disease) (9) Gout (10) Heart disease (11) Hypothyroidism (acquired) (12) Hysterectomy (13) Kidney disease (14) Labile hypertension (15) Osteoporosis (16) PAF (paroxysmal atrial fibrillation) (17) Pneumonia (18) Syncope (19) UTI (urinary tract infection) Surgical Problems: (1) History of bladder suspension procedure (2) History of herniorrhaphy Family History Diabetes mellitus FH: cancer FH: heart disease Hypertension Kidney disease Kidney stones Social History Smoking Status: Never Smoker Alcohol Use: none Drug Use: none Marital Status: Housing Status: lives with family Occupation Status: retired Current/Historical Medications Scheduled Allopurinol (Allopurinol), 200 MG PO QAM Aspirin (Aspirin 81), 81 MG PO DAILY Atorvastatin (Lipitor), 40 MG PO QPM Azelastine Hcl (Astelin Nasal [place]), 1 SPRAYS NA BID Calcitonin ([place]) (Miacalcin), 1 SPRAY NA QAM Calcitriol (Rocaltrol Cap), 0.25 MCG PO QAM Calcium Carbonate (Calcium 600), 1,500 MG PO HS Carvedilol (Coreg), 12.5 MG PO QAM Carvedilol (Carvedilol), 25 MG PO HS Cefdinir (Omnicef), 300 MG PO Q12H Denosumab (Prolia), 60 MG SQ [id number] Docusate Sodium (Colace), 2 CAP PO QAM Escitalopram (Lexapro), 0.25 TAB PO QAM Fexofenadine Hcl (Loraine Allergy), 180 MG PO QAM Fluticasone Furoate-Vilanterol (Breo Ellipta 200-25 Mcg/INH), 1 INHA PO QAM Folic Acid (Folvite), 1 TAB PO DAILY Furosemide (Lasix), 1 TAB PO DAILY Furosemide (Lasix), 0.5 TAB PO MWF Gabapentin (Neurontin), 100 MG PO HS Isosorbide Mononitrate Ext Rel (Imdur Ext Rel), 120 MG PO DAILY AT 10PM Levothyroxine Sodium (Levothyroxine Sodium), 1 TAB PO QAM Losartan Potassium (Cozaar), 50 MG PO HS Pantoprazole (Protonix), 40 MG PO BID Ranitidine Hcl (Zantac), 1 TAB PO QAM Ranitidine Hcl (Zantac), 2 TAB PO QPM Spironolactone (Aldactone), 12.5 MG PO QAM Sucralfate (Sucralfate), 1 GM PO QID Triamcinolone Acetonide (Nasal (Nasacort Allergy 24Hr), 2 SPRAYS DENNY UD Scheduled PRN Budesonide (Pulmicort Respules 0.5MG/2ML), 4 ML NEB Q12 PRN for RESP TREATMENT Hydralazine Hcl (Apresoline), 10 MG PO BID PRN for HTN Levalbuterol (Levalbuterol HCl), 3 ML NEB Q6 PRN for SOB/Wheezing Levalbuterol Tartrate (Levalbuterol Tartrate Hfa), 2 PUFFS PO Q4 PRN for Shortness of Breath Lorazepam (Ativan), 0.5-1 TAB PO BID PRN for Anxiety Nitroglycerin (Nitrostat), 0.4 MG UT UD PRN for Chest Pain Miscellaneous Medications Warfarin Sod (Jantoven), 2.5 MG PO Allergies Coded Allergies: Dipyridamole (Verified Allergy, Severe, ANAPHYLAXIS, 03/10/17) Edetic Acid (Verified Allergy, Severe, ANAPHYLAXIS, 03/10/17) Propylene Glycol (Verified Allergy, Severe, ANAPHYLAXIS, 03/10/17) Regadenoson (Verified Allergy, Severe, ANAPHYLAXIS, 03/10/17) NSAIDs (Verified Allergy, Mild, per patient, king maker recommended not to take, 03/10/17) Sulfamethoxazole (Verified Allergy, Mild, RASH, 03/10/17) Trimethoprim (Verified Allergy, Mild, RASH, 03/10/17) Physical Exam Vital Signs Date Time Temp Pulse Resp B/P (MAP) Pulse Ox O2 Delivery O2 Flow Rate FiO2 12/30/17 12:09 78 16 119/65 99 12/30/17 10:01 36.4 58 20 151/72 98 Room Air Physical Exam GENERAL: Patient is in no acute distress. HEENT: No acute trauma, normocephalic atraumatic, mucous membranes moist, no nasal congestion, no scleral icterus. NECK: No stridor, no adenopathy, no meningismus, trachea is midline. LUNGS: Clear to auscultation bilaterally, no wheeze, no rhonchi, breath sounds equal. HEART: Without murmurs gallops or rubs, regular rate and rhythm. ABDOMEN: Soft, nontender, bowel sounds positive, no hernias, no peritonitis. BACK: No flank discomfort with percussion EXTREMITIES: No cyanosis or edema, full range of motion of all the joints without pain or difficulty, no signs for acute trauma. NEUROLOGIC: Oriented x 3, no acute motor or sensory deficits, no focal weakness. SKIN: Bruises of different ages across the torso and extremities Medical Decision & Procedures ER Provider Diagnostic Interpretation: Radiology results as stated below per my review and radiologist interpretation: CHEST ONE VIEW PORTABLE CLINICAL HISTORY: 87 years-old Female presenting with left flank pain. TECHNIQUE: Portable upright AP view of the chest was obtained. COMPARISON: 03/10/2017. FINDINGS: Mild prominence of the thoracic aorta, unchanged from prior. Cardiac silhouette normal in size. Persistent bandlike opacity at the left lung base. No new focal opacity. No large effusion or pneumothorax. Prominent costochondral calcification Degenerative changes of the thoracic spine. Degenerative changes of the bilateral shoulders. Upper abdomen normal. IMPRESSION: 1. No acute cardiopulmonary disease. Electronically signed by: Fausto Schaeffer M.D. 12/30/2017 10:50 AM ABD/PELVIS WITHOUT FOR STONE CLINICAL HISTORY: 87 years-old Female presenting with EVALUATE FLANK PAIN/HEMATURIA, burning sensation with urination. TECHNIQUE: Multidetector CT of the abdomen and pelvis was performed without the use of intravenous contrast. IV contrast: None. A dose lowering technique was used consistent with the principles of ALARA (as low as reasonably achievable). COMPARISON: 03/10/2017. CT DOSE (mGy.cm): The estimated cumulative dose is 1040.79 mGy.cm. FINDINGS: Commercial Manager topogram: Unremarkable. Lung bases: Minimal basilar opacities, likely atelectasis. Mild multichamber enlargement of the heart. Coronary artery, aortic valve, and mitral annular calcification. No pericardial or pleural effusion. Liver: Congenital hypoplasia of the medial segments of the left hepatic lobe. Normal density. Biliary: No gross biliary ductal dilatation allowing for noncontrast technique. Gallbladder contains gallstones. Pancreas: Normal noncontrast appearance. Spleen: Normal noncontrast appearance. Splenule noted. Adrenal glands: Normal noncontrast appearance. Kidneys and ureters: Mild nonspecific perinephric fat stranding. Normal noncontrast appearance. No nephrolithiasis. No hydronephrosis. Normal ureters. Bladder: Normal. Dilatation of the urethra near the origin may suggest the presence of a diverticulum. This is not well visualized without intravenous contrast. Pelvic organs: Uterus surgically absent. No adnexal masses. Bowel: Diverticulosis of the distal sigmoid colon. No wall thickening or pericolonic inflammatory change. Appendix not visualized. No bowel obstruction. Moderate hiatal hernia. Peritoneal cavity: No free fluid or intraperitoneal gas. Lymph nodes: No gross lymphadenopathy allowing for noncontrast technique. Vasculature: Atherosclerosis of the normal caliber abdominal aorta. Abdominal wall: Fluid noted in the small right inguinal hernia, possibly an encysted hydrocele. Musculoskeletal: Degenerative changes of the spine. Compression deformity of L1. Anterolisthesis of L4 on L5. Findings are unchanged. IMPRESSION: 1. 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 This is suboptimally evaluated without intravenous contrast. 2. No nephrolithiasis or hydronephrosis. No CT evidence of cystitis though this does not exclude the diagnosis. 3. Cholelithiasis. 4. Limited diverticulosis. 5. Moderate hiatal hernia. Electronically signed by: Fausto Schaeffer M.D. 12/30/2017 11:08 AM Laboratory Results 12/30/17 10:24 Red Blood Count 3.97, Mean Corpuscular Volume 89.9, Mean Corpuscular Hemoglobin 29.2, Mean Corpuscular Hemoglobin Concent 32.5, Mean Platelet Volume 11.0, Neutrophils (%) (Auto) 63.0, Lymphocytes (%) (Auto) 23.4, Monocytes (%) (Auto) 9.2, Eosinophils (%) (Auto) 3.7, Basophils (%) (Auto) 0.5, Neutrophils # (Auto) 5.13, Lymphocytes # (Auto) 1.91, Monocytes # (Auto) 0.75, Eosinophils # (Auto) 0.30, Basophils # (Auto) 0.04 12/30/17 10:24 Test 12/30/17 10:24 White Blood Count 8.15 K/uL (4.8-10.8) Red Blood Count 3.97 M/uL (4.2-5.4) Hemoglobin 11.6 g/dL (12.0-16.0) Hematocrit 35.7 % (37-47) Mean Corpuscular Volume 89.9 fL (80-100) Mean Corpuscular Hemoglobin 29.2 pg (25-34) Mean Corpuscular Hemoglobin Concent 32.5 g/dl (32-36) Platelet Count 193 K/uL (130-400) Mean Platelet Volume 11.0 fL (7.4-10.4) Neutrophils (%) (Auto) 63.0 % Lymphocytes (%) (Auto) 23.4 % Monocytes (%) (Auto) 9.2 % Eosinophils (%) (Auto) 3.7 % Basophils (%) (Auto) 0.5 % Neutrophils # (Auto) 5.13 K/uL (1.4-6.5) Lymphocytes # (Auto) 1.91 K/uL (1.2-3.4) Monocytes # (Auto) 0.75 K/uL (0.11-0.59) Eosinophils # (Auto) 0.30 K/uL (0-0.5) Basophils # (Auto) 0.04 K/uL (0-0.2) RDW Standard Deviation 54.8 fL (36.4-46.3) RDW Coefficient of Variation 16.8 % (11.5-14.5) Immature Granulocyte % (Auto) 0.2 % Immature Granulocyte # (Auto) 0.02 K/uL (0.00-0.02) Prothrombin Time 23.1 SECONDS (9.0-12.0) Prothromb Time International Ratio 2.2 (0.9-1.1) Activated Partial Thromboplast Time 37.4 SECONDS (21.0-31.0) Partial Thromboplastin Ratio 1.4 Urine Color YELLOW Urine Appearance CLOUDY (CLEAR) Urine pH 7.0 (4.5-7.5) Urine Specific [place] 1.008 (1.000-1.030) Urine Protein 1+ (NEG) Urine Glucose (UA) NEG (NEG) Urine Ketones NEG (NEG) Urine Occult Blood 2+ (NEG) Urine Nitrite NEG (NEG) Urine Bilirubin NEG (NEG) Urine Urobilinogen NEG (NEG) Urine Leukocyte Esterase LARGE (NEG) Urine WBC (Auto) >30 /hpf (0-5) Urine RBC (Auto) 10-30 /hpf (0-4) Urine Hyaline Casts (Auto) 0 /lpf (0-5) Urine Epithelial Cells (Auto) 0-5 /lpf (0-5) Urine Bacteria (Auto) NEG (NEG) Anion Gap 8.0 mmol/L (3-11) Est Creatinine Clear Calc Drug Dose 24.5 ml/min Estimated GFR () 38.7 Estimated GFR (Non- 33.4 BUN/Creatinine Ratio 20.4 (10-20) Calcium Level 8.8 mg/dl (8.5-10.1) Magnesium Level 1.9 mg/dl (1.8-2.4) Total Bilirubin 0.5 mg/dl (0.2-1) Aspartate Amino Transf (AST/SGOT) 21 U/L (15-37) Alanine Aminotransferase (ALT/SGPT) 21 U/L (12-78) Alkaline Phosphatase 54 U/L (45-117) Troponin I < 0.015 ng/ml (0-0.045) Total Protein 6.9 gm/dl (6.4-8.2) Albumin 3.3 gm/dl (3.4-5.0) Globulin 3.6 gm/dl (2.5-4.0) Albumin/Globulin Ratio 0.9 (0.9-2) Lipase 219 U/L (73-393) Laboratory results reviewed by me. 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 A complete history and physical exam was performed. 1008: Ordered Sodium Chloride 500 ml @ 999 mls/hr IV 1101: Ordered Rocephin Inj 1 gm IV 1145: Reevaluated the patient. Discussed results and discharge instructions: She verbalized understanding and agreement. The patient is ready for discharge. Medical Decision Differential diagnosis: Etiologies such as pyelonephritis, renal coli, pancreatitis, diverticulitis, gastritis, pneumonia, colitis, coagulopathy, as well as others were entertained. There is no leukocytosis or worrisome anemia. No significant renal insufficiency/failure. No worrisome electrolyte abnormality requiring correction. INR was therapeutic at 2.2. There was no hepatitis. Urinalysis does suggest infection. Urine culture is pending. Abdominal and pelvis CT does not show evidence for ureteral obstruction, no diverticulitis or bowel obstruction. Chest film does not show pneumonia or CHF. EKG shows a sinus bradycardia, there were some older changes. No evidence for acute DE. Cardiac enzyme testing 1 is not consistent with acute cardiac injury. No pancreatitis by laboratory testing. The patient received IV ceftriaxone as antibiotic coverage. She was given IV saline. Patient is not in significant distress. She is not toxic or febrile. I do think she can be discharged on antibiotics. She likely has an early pyelonephritis. She will be on Omnicef twice a day for 10 days. A probiotic was suggested. Tylenol for pain. If things are worsening, if she is not improving, she will return for reassessment. Medication Reconcilliation Current Medication List: was personally reviewed by me Blood Pressure Screening Patient's blood pressure: Elevated blood pressure Blood pressure disposition: Elevated BP felt to be situational Impression Primary Impression: Pyelonephritis Additional Impression: Left flank pain Scribe Attestation The scribe's documentation has been prepared under my direction and personally reviewed by me in its entirety. I confirm that the note above accurately reflects all work, treatment, procedures, and medical decision making performed by me. Departure Information Dispostion Home / Self-Care Prescriptions Cefdinir (OMNICEF) 300 Mg Cap 300 MG PO Q12H for 10 Days, #20 CAP Prov: Abrahan Gonzalez M.D. 12/30/17 Referrals No Doctor, Assigned (PCP) Forms HOME CARE DOCUMENTATION FORM, IMPORTANT VISIT INFORMATION Patient Instructions My [facility] [place] [employer] Additional Instructions omnicef 2x per day for 10 days tylenol for pain rest stay well hydrated see eva bolton for a recheck and INR check next week return for fever, worsening symptoms or if not improving Problem Qualifiers
== END 2017-12-30 12:11 | disposition home or self-care (01) ==
LOC: C.EDB 09:47
DX: N12 Tubulo-interstitial nephritis, not specified as acute or chronic (principal); R10.32 Left lower quadrant pain; R10.12 Left upper quadrant pain; I44.0 Atrioventricular block, first degree; N28.9 Disorder of kidney and ureter, unspecified; J45.909 Unspecified asthma, uncomplicated; I11.0 Hypertensive heart disease with heart failure; I50.9 Heart failure, unspecified; E03.9 Hypothyroidism, unspecified; I48.0 Paroxysmal atrial fibrillation; Z79.899 Other long term (current) drug therapy; Z79.01 Long term (current) use of anticoagulants; Z79.82 Long term (current) use of aspirin; Z79.51 Long term (current) use of inhaled steroids; Z88.8 Allergy status to other drugs, medicaments and biological substances; Z88.2 Allergy status to sulfonamides; Z88.6 Allergy status to analgesic agent

== ENCOUNTER 2019-02-19 10:03 | Inpatient (IN) ==
--- OUTSIDE RECORDS SUMMARY | 2019-02-19 10:05 | External Medical Summary | Continuity of Care Document ---
:1930 Author Name Valerie Davis Address Unavailable Unavailable , Care Team Providers Name Role Phone Unavailable Unavailable Unavailable Latisha Parmar M.D. Unavailable [email or web address] Carlos QUINONEZ M.D. 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 , M.D. Refills: 0 Diovan 80 MG Oral Tablet; TAKE 1 TABLET IN AM, 1/2 TAB IN PM Susan Parmar Refills: 0 Aldactone 25 MG Oral Tablet; TAKE 1/2 TABLET (12.5mg) DAILY. , M.D. Refills: 0 Allopurinol 100 MG Oral Tablet; TAKE 1 TABLET DAILY. , M.D. Refills: 0 Vitamin D 50 MCG (2000 UT) Oral Tablet; Take 1 tablet daily , M.D. Refills: 0 Aspirin 81 MG TABS; TAKE 1 TABLET DAILY. , M.D. Refills: 0 Clotrimazole 1 % External Cream; APPLY 2-3 TIMES DAILY TO AFFECTED AREA(S). , M.D. Refills: 0 Prolia 60 MG/ML SOLN; INJECT SUBCUTANEOUSLY 60 MG / 1 ML EV ELI 6 MONTHS , M.D. Refills: 0 Levothyroxine Sodium 100 MCG Oral Tablet; TAKE 1 TABLET ADA Y. , M.D. Refills: 0 Furosemide 20 MG Oral Tablet; monday, ,,monday 1 weekend day if needed , M.D. Refills: 0 Flonase SUSP; USE 2 SPRAYS IN EACH NOSTRIL ONCE DAILY , M.D. Refills: 0 Lipitor 40 MG Oral Tablet; TAKE 1 TABLET DAILY. , M.D. Refills: 0 Folic Acid 400 MCG Oral Tablet; TAKE 2 TABLET Daily , M.D. Refills: 0 Isosorbide Dinitrate 30 MG Oral Tablet; Take 1 tablet daily , M.D. Refills: 0 Procedures History of Hysterectomy Status: Complete d Immunizations Immunizations not documented Family History Father Family history of Father At Age ___ Status: Active Mother Family history of Mother At Age ___ Status: Active Unknown Family Member Family history of Diabetes Mellitus (V18.0) Status: Active Comments: Family History Family history of Hypertension (V17.49) Status: Active Comments: Family History Social History - Smoking Status Never smoker Plan of Treatment Planned Observations Planned Goals not documented Results No Known Results Results not documented
[2019-02-19 11:30] LABS: Basophils # (auto) 0.03 K/uL (0-0.2); Basophils % (auto) 0.5 %; Eosinophils # (auto) 0.04 K/uL (0-0.5); Eosinophils % (auto) 0.7 %; Hematocrit (blood only) 35.3 % (37-47); Hemoglobin 11.5 g/dL (12.0-16.0); Immature Granulocytes # (auto) 0.03 K/uL (0.00-0.02); Immature Granulocytes % (auto) 0.5 %; Lymphocytes # (auto) 0.86 K/uL (1.2-3.4); Mean Corpuscular Hemoglobin 29.6 pg (25-34); Mean Corpuscular Hgb Conc 32.6 g/dL (32-36); Mean Corpuscular Volume 90.7 fL (80-100); Mean Platelet Volume 10.6 fL (7.4-10.4); Monocytes % (auto) 6.5 %; Neutrophils # (auto) 4.78 K/uL (1.4-6.5); Neutrophils % (auto) 77.8 %; Platelet Count 143 K/uL (130-400); RDW Coefficient of Variation 16.7 % (11.5-14.5); RDW Standard Deviation 54.7 fL (36.4-46.3); Red Blood Count 3.89 M/uL (4.2-5.4); White Blood Count 6.14 K/uL (4.8-10.8)
[2019-02-19 11:42] LABS: Base Excess VBG 1.4 mEq/L; pH VBG 7.47 (7.36-7.41)
[2019-02-19 11:44] LABS: INR 1.9 (0.9-1.1); Partial Thromboplastin Ratio 1.1; Prothrombin Time 18.8 Seconds (9.0-12.0)
--- NOTE | 2019-02-19 11:48 | XRay Report ---
XR chest 1V portable HISTORY: kendy hypoxia fever ro pna COMPARISON: Chest 12/30/2017. FINDINGS: There are low lung volumes. The heart remains mildly enlarged. Tortuous thoracic aorta, unc hanged. A few bibasilar linear densities favor subsegmental atelectasis or scarring. These are not si gnificant changed. No new focal lung consolidations to suggest pneumonia. No evidence for pulmonary e emely. No pleural effusions. No pneumothorax. IMPRESSION: No significant change compared to the prior study. No acute process. Electronically signed by: Georges Toro M.D. 02/19/2019 11:47 AM
[2019-02-19 11:50] LABS: Alanine Aminotransferase 12 U/L (12-78); Albumin Level 3.1 gm/dl (3.4-5.0); Aspartate Aminotransferase 17 U/L (15-37); BUN Creatinine Ratio 21.6 (10-20); Bilirubin Direct 0.2 mg/dl (0-0.2); Blood Urea Nitrogen 29 mg/dl (7-18); Calcium 9.4 mg/dl (8.5-10.1); Carbon Dioxide 28 mmol/L (21-32); Chloride 100 mmol/L (98-107); Creatinine Clr Calc Pharmacy 25.4 ml/min; Est GFR (African American) 40.5; Est GFR (Non-African American) 34.9; Glucose 107 mg/dl (70-99); Lipase 195 U/L (73-393); Magnesium 1.4 mg/dl (1.8-2.4); Potassium 3.1 mmol/L (3.5-5.1); Sodium 137 mmol/L (136-145)
[2019-02-19 11:55] LABS: Alkaline Phosphatase 44 U/L (45-117); Bilirubin,Total 0.5 mg/dl (0.2-1); NT Pro B Type Natriuretic Pept 1546 pg/ml (0-1800); Total Protein 6.3 gm/dl (6.4-8.2); Troponin I < 0.015 ng/ml (0-0.045)
[2019-02-19 12:08] LABS: Influenza A virus by PCR Neg for Influ A (Neg); Influenza B virus by PCR Neg for Influ B (Neg)
[2019-02-19 12:10] LABS: Appearance Urine Clear (Clear); Bacteria Urine Automated Negative (Negative); Bilirubin Urine Negative (Negative); Blood Urine Negative (Negative); Color Urine Yellow; Glucose Urine UA Negative (Negative); Ketones Urine Negative (Negative); Leukocyte Esterase Urine 1+ (Negative); Nitrite Urine Negative (Negative); Protein Urine Negative (Negative); RBC Urine Automated 0-4 /hpf (0-4); Specific Gravity Urine 1.011 (1.000-1.030); Urobilinogen Urine Negative (Negative)
[2019-02-19] MEDS ORDERED: OPTIRAY 320 125ml IV PRN (12:58)
--- NOTE | 2019-02-19 13:21 | CT Scan Report ---
CT ANGIOGRAM OF THE CHEST CLINICAL HISTORY: Dyspnea. COMPARISON STUDY: Chest x-ray dated 02/19/2019. Chest CT dated 02/22/2013. TECHNIQUE: Following the IV administration of 118 cc of Optiray 320, CT angiogram of the chest was pe rformed from the upper abdomen to the thoracic inlet utilizing the pulmonary embolus protocol. Images are reviewed in the axial, sagittal, and coronal planes. 3-D MIPS images are created and assessed. I V contrast was administered without complication. A dose lowering technique was utilized adhering to the principles of ALARA. The examination is degraded by motion artifact. CT DOSE: 292.70 mGy.cm FINDINGS: Thyroid: Atrophic versus surgically absent. Thoracic aorta: There is mild atherosclerotic calcification of the thoracic aorta, with is normal in caliber and demonstrates standard 3-vessel arch anatomy. No dissection is seen. Pulmonary vasculature: The pulmonary trunk is normal in caliber. There are no filling defects identif ied in main, lobar, or segmental pulmonary branches to suggest pulmonary embolus. Heart: The heart is normal in size and without pericardial effusion. The coronary arteries are densel y calcified. Lungs and pleural spaces: Evaluation of the lung parenchyma is degraded by motion artifact. There is bibasilar scarring/atelectasis. No airspace consolidation is seen typical for pneumonia and there is no pleural effusion. The trachea and central airways are clear. Mediastinum: There is no mediastinal lymphadenopathy. [place]: Clear. Axillae: There is no axillary lymphadenopathy. Upper abdomen: There is a moderate hiatal hernia. Partially visualized upper abdominal viscera is wit hin normal limits. Skeletal structures: The skeletal structures are osteopenic. No lytic or blastic bony lesions are see n. Degenerative change is noted in the shoulders and thoracic spine. Soft tissues: There is a 1.2 cm nodule in the subareolar left breast. This is new from 02/22/2013. IMPRESSION: 1. There is no evidence of pulmonary embolus in the main, lobar, or segmental pulmonary arteries. 2. There is no airspace consolidation or pleural effusion. 3. There is a 1.2 cm subareolar nodule in the left breast which was not seen on the 02/22/2013 examin ation. This is not well assessed by CT but is concerning for neoplasm. Nonemergent follow-up with deysi gnostic mammography is recommended. Electronically signed by: Abrahan Romero M.D. 02/19/2019 1:20 PM
--- NOTE | 2019-02-19 14:58 | Emergency Department Note ---
Entered by Howard Noonan acting as a scribe for History of Present Illness General Chief complaint: Flu Like Symptoms Stated complaint: weakness/cough Time Seen by Provider: 02/19/19 10:39 Source: patient History of Present Illness Provider complaint: Flu like symptoms Onset (ago): day(s) (Couple days) Location: chest Pain Consistency: + constant Maximum Pain Intensity: 5 Current Pain Intensity: 5 Relieved By: + none Exacerbated By: + other (Lying flat) Associated symptoms: + denies other symptoms (Abdominal pain), + cough, + shortness of breath and + other (Urinary symptoms); no nausea/vomiting The patient is an 88 year old female who presents to the Emergency Room with complaints of constant flu like symptoms that started a couple of days ago. The patient states she has chest congestion and rhinorrhea making her short of breath. Per the patient's daughter, the patient's shortness of breath is worse when lying down. The patient has also been coughing up yellow/green mucous. Since the onset of these symptoms the patient has been running intermittent fevers that have reached as high as 102F. Per the patient's daughter, the patient has a history of severe asthma and right sided heart failure so she has emergency Prednisone and Amoxicillin. The daughter reports that the patient was wheezing this morning so she gave her 2 Levalbuterol treatments and 50 of Prednisone. The patient also endorses dysuria for the past couple of days and some lower back pain but notes this pain is chronic. The patient saw her PCP today for her symptoms but was sent to the ED to rule out pneumonia. The patient denies any abdominal pain, nausea, or vomiting. She is on Coumadin. Home Medications Home Medications Medication Instructions Recorded Confirmed Type allopurinol 100 mg PO DAILY 02/19/19 02/19/19 History amoxicillin 500 mg PO TID 02/19/19 02/19/19 History aspirin [Aspirin Low Dose] 81 mg PO DAILY 02/19/19 02/19/19 History atorvastatin 40 mg PO DAILY 02/19/19 02/19/19 History benzonatate 100 mg PO TID PRN 02/19/19 02/19/19 History budesonide 0.5 mg INHALATION BID 02/19/19 02/19/19 History calcitonin (salmon) 1 spray INTRANASAL DAILY 02/19/19 02/19/19 History calcium carbonate 1,500 mg PO DAILY 02/19/19 02/19/19 History carvedilol [Coreg] 6.25 mg PO PM 02/19/19 02/19/19 History carvedilol [Coreg] 25 mg PO BID 02/19/19 02/19/19 History cholecalciferol (vitamin D3) 1,000 unit PO DAILY 02/19/19 02/19/19 History [Vitamin D3] docusate sodium [Colace Clear] 50 mg PO DAILY PRN 02/19/19 02/19/19 History escitalopram oxalate [Lexapro] 10 mg PO DAILY 02/19/19 02/19/19 History fexofenadine 180 mg PO DAILY 02/19/19 02/19/19 History folic acid 1 mg PO DAILY 02/19/19 02/19/19 History furosemide 40 mg PO DAILY 02/19/19 02/19/19 History gabapentin 100 mg PO BID 02/19/19 02/19/19 History hydralazine 10 mg PO BID 02/19/19 02/19/19 History iron-vit B ewwu-G-wus-liver ex 1 tab PO DAILY 02/19/19 02/19/19 History isosorbide mononitrate 120 mg PO DAILY 02/19/19 02/19/19 History levalbuterol HCl [Xopenex] 1.25 mg INHALATION TID PRN 02/19/19 02/19/19 History levothyroxine 150 mcg PO DAILY 02/19/19 02/19/19 History losartan 50 mg PO DAILY 02/19/19 02/19/19 History montelukast 10 mg PO PM 02/19/19 02/19/19 History nitroglycerin [Nitrostat] 0.4 mg BUCCAL DAILY 02/19/19 02/19/19 History pantoprazole [Protonix] 40 mg PO DAILY 02/19/19 02/19/19 History potassium chloride 10 meq PO BID 02/19/19 02/19/19 History prednisone 10 mg PO DIRECTED 02/19/19 02/19/19 History ranitidine HCl 150 mg PO BID 02/19/19 02/19/19 History spironolactone 25 mg PO QPM 02/19/19 02/19/19 History sucralfate [Carafate] 1 g PO QID 02/19/19 02/19/19 History tamoxifen 20 mg PO DAILY 02/19/19 02/19/19 History trazodone 50 mg PO HS 02/19/19 02/19/19 History warfarin 2.5 mg PO DAILY 02/19/19 02/19/19 History 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, 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 not to take sulfamethoxazole Allergy Mild RASH Verified 05/23/18 09:39 trimethoprim Allergy Mild RASH Verified 05/23/18 09:39 amlodipine Allergy Unknown Unverified 02/19/19 14:30 amoxicillin Allergy Rash Unverified 02/19/19 14:30 azithromycin Allergy Unknown Unverified 02/19/19 14:30 cefuroxime [From Ceftin] Allergy Diarrhea Unverified 02/19/19 14:30 ipratropium Allergy Unknown Unverified 02/19/19 14:30 Sulfa (Sulfonamide Allergy Hives Unverified 02/19/19 14:30 Antibiotics) Past Med/Surg History Medical History Atrial fibrillation (Chronic) Bronchial asthma (Chronic) Repeated Infections Chronic renal insufficiency (Chronic) Baseline Creatinine - 1.6 Coronary artery disease (Chronic) Diastolic heart failure (Chronic) Dyslipidemia (Chronic) Gastro-esophageal reflux (Chronic) Gout (Chronic) Hypertension (Chronic) Hypothyroidism (Chronic) IBS (irritable bowel syndrome) (Chronic) Osteoporosis (Chronic) on Prolia Rheumatic fever (Resolved) 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, 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 Transient ischemic attack (Resolved) 1983 - No deficits - right eye droop Surgical History History of appendectomy (Resolved) 1953 History of breast biopsy (Resolved) Left - Biopsy / Lumpectomy 03/28/18 History of cardiac cath (Resolved) 2011 History of colonoscopy (Resolved) 03/02/2011 History of esophagogastroduodenoscopy (EGD) (Resolved) 2010, 2013, 2017 History of hernia repair (Resolved) 2009 History of hysterectomy (Resolved) 1965 History of thyroidectomy (Resolved) 06/2015 - Bilateral History of urologic surgery (Resolved) 1974 - Bladder Suspension Family History Mother , Passed age 73 of [place] No problems noted. Father , Passed age 50 of [place] No problems noted. Brother Lung fibrosis Brother , Passed age 63 of allergic reaction to antibiotics No problems noted. Sister , Passed age 83 of "electrolyte disturbances" DCIS (ductal carcinoma in situ) Sister , Passed age 84 from post surgical complications No problems noted. Sister No problems noted. Daughter No problems noted. Daughter No problems noted. Son No problems noted. 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 and A total of 10 systems reviewed and were otherwise negative Physical Exam Vital Signs Vital Signs - 24 hr 02/19/19 10:14 02/19/19 10:55 02/19/19 10:56 Temperature 37.9 C H Temperature Source Oral Sepsis Recent Fever Within 48 Hours Yes Sepsis New/Unexplained Change in Mental Status No Sepsis Action Taken by Nursing No Action Required Pulse Rate 76 Pulse Rate [Left Finger] Respiratory Rate 20 Respiratory Effort / Characteristics Respiratory Depth Respiratory Pattern Blood Pressure 131/70 Blood Pressure [Left Arm] Blood Pressure Mean 90 Blood Pressure Mean [Left Arm] Pulse Oximetry 92 87 L 94 Oxygen Delivery Method Room Air Room Air Nasal Cannula Oxygen Flow Rate 2 02/19/19 11:28 02/19/19 12:00 02/19/19 13:58 Temperature Temperature Source Sepsis Recent Fever Within 48 Hours Sepsis New/Unexplained Change in Mental Status Sepsis Action Taken by Nursing Pulse Rate Pulse Rate [Left Finger] 68 71 69 Respiratory Rate 25 H 22 20 Respiratory Effort / Characteristics Non-Labored Non-Labored Non-Labored Respiratory Depth Normal Normal Normal Respiratory Pattern Regular Regular Regular Blood Pressure Blood Pressure [Left Arm] 153/72 H 152/78 H 132/71 Blood Pressure Mean Blood Pressure Mean [Left Arm] 99 102 91 Pulse Oximetry 94 95 93 Oxygen Delivery Method Nasal Cannula Nasal Cannula Nasal Cannula Oxygen Flow Rate 2 2 2 GENERAL: She does appear distressed. HENT: Exam performed. Head: Normocephalic and atraumatic. Right Ear: External ear normal. No mastoid tenderness. Left Ear: External ear normal. No mastoid tenderness. Mouth/Throat: The oropharynx is clear and moist. No trismus in the jaw. No dental abscesses or uvula swelling. No oropharyngeal exudate or tonsillar abscesses. EYES: Conjunctivae and EOM are normal. Pupils are equal, round, and reactive to light. Right eye exhibits no discharge. Left eye exhibits no discharge. No scleral icterus. NECK: Normal range of motion. Neck supple. No JVD present. No spinous process tenderness present. No carotid bruit present. No rigidity. No tracheal deviation and normal range of motion present. No Brudzinski's sign and no Kernig's sign noted. CV: Normal rate, regular rhythm, normal heart sounds and intact distal pulses. There is no peripheral edema. Palpable radial pulses bue. PULM/CHEST: Bilateral rhonchi noted. Chest Wall: She exhibits no tenderness. ABD: The abdomen is soft. Bowel sounds are normal. She has no distension. No mass is present. There is no tenderness. There is no rebound, no guarding, no Quezada's sign and no tenderness at McBurney's point. Rovsig negative MUSC/SKEL: Normal range of motion. There is no peripheral edema, tenderness or deformity. LYMPH: No cervical adenopathy. NEURO: She is alert and oriented to person, place, and time. She has normal strength. No cranial nerve deficit or sensory deficit. Coordination and gait normal. GCS eye subscore is 4. GCS verbal subscore is 5. GCS motor subscore is 6. cerbellar tests wnl. SKIN: Skin is warm and dry. She is not diaphoretic. PSYCH: She has a normal mood and affect. Her behavior is normal. Judgment and thought content normal. Course 1049: Past medical records reviewed. The patient was evaluated in room A09B, and a complete history and physical examination were performed. 1200: Signs stable on 2 L nasal cannula. INR is subtherapeutic. Chest x-ray is negative for pneumonia. Lactic acid and urinalysis negative. Flu negative. Will obtain CTA to rule out PE as well as possible pneumonia that is unable to be visualized on chest x-ray. 1340: The patient's vital signs are stable on 2L nasal cannula. The patient's CT is negative for PE and PNA. [facility] Pr[facility]ad about the patient's case. They are going to accept the patient for further evaluation. Consultations Consultation #1: [facility] Prasad about the patient's case. They are going to accept the patient for further evaluation. Time: 13:40 Administered Medications Ioversol (Optiray 320 125ml) 118 ml IV ONCE PRN PRN Reason: Interaction Checking Stop: 02/23/19 12:57 Last Admin: 02/19/19 12:58 Dose: 118 ml Documented by: [id number] Medical Decision Making Medical Records Attestation: I reviewed the patient's medical records. Home Medications Current Medication List: was personally reviewed by me Laboratory Data Attestation: I reviewed the patient's lab results. Result diagrams: 02/19/19 11:19 02/19/19 11:19 Lab Results 02/19/19 02/19/19 02/19/19 Range/Units 11:10 11:17 11:19 WBC 6.14 (4.8-10.8) K/uL RBC 3.89 L (4.2-5.4) M/uL Hgb 11.5 L (12.0-16.0) g/dL Hct 35.3 L (37-47) % MCV 90.7 (80-100) fL MCH 29.6 (25-34) pg MCHC 32.6 (32-36) g/dL RDW Std Deviation 54.7 H (36.4-46.3) fL RDW Coeff of Chrissy 16.7 H (11.5-14.5) % Plt Count 143 (130-400) K/uL MPV 10.6 H (7.4-10.4) fL Immature Gran % (Auto) 0.5 % Neut % (Auto) 77.8 % Lymph % (Auto) 14.0 % Jewell % (Auto) 6.5 % Eos % (Auto) 0.7 % Baso % (Auto) 0.5 % Immature Gran # (Auto) 0.03 H (0.00-0.02) K/uL Neut # (Auto) 4.78 (1.4-6.5) K/uL Lymph # (Auto) 0.86 L (1.2-3.4) K/uL Jewell # (Auto) 0.40 (0.11-0.59) K/uL Eos # (Auto) 0.04 (0-0.5) K/uL Baso # (Auto) 0.03 (0-0.2) K/uL PT (9.0-12.0) Seconds INR (0.9-1.1) APTT (21.0-31.0) Seconds PTT Ratio VBG pH (7.36-7.41) VBG pCO2 (38-50) mmHg VBG pO2 mmHg VBG HCO3 mmol/L VBG O2 Saturation % VBG Base Excess mEq/L Barometric Pressure mm/Hg Sodium (136-145) mmol/L Potassium (3.5-5.1) mmol/L Chloride (98-107) mmol/L Carbon Dioxide (21-32) mmol/L Anion Gap (3-11) BUN (7-18) mg/dl Creatinine (0.6-1.2) mg/dl Est Cr Clr Drug Dosing ml/min Est GFR ( Amer) Est GFR (Non-Af Amer) BUN/Creatinine Ratio (10-20) Glucose (70-99) mg/dl POC Glucose 96 (70-99) Lactate (0.4-2.0) mmol/L Calcium (8.5-10.1) mg/dl Magnesium (1.8-2.4) mg/dl Total Bilirubin (0.2-1) mg/dl Direct Bilirubin (0-0.2) mg/dl AST (15-37) U/L ALT (12-78) U/L Alkaline Phosphatase (45-117) U/L Troponin I (0-0.045) ng/ml NT-Pro-B Natriuret Pep (0-1800) pg/ml Total Protein (6.4-8.2) gm/dl Albumin (3.4-5.0) gm/dl Lipase (73-393) U/L Urine Color Urine Appearance (Clear) Urine pH (4.5-7.5) Ur Specific [place] (1.000-1.030) Urine Protein (Negative) Urine Glucose (UA) (Negative) Urine Ketones (Negative) Urine Blood (Negative) Urine Nitrite (Negative) Urine Bilirubin (Negative) Urine Urobilinogen (Negative) Ur Leukocyte Esterase (Negative) Urine WBC (Auto) (0-5) /hpf Urine RBC (Auto) (0-4) /hpf U Hyaline Cast (Auto) (0-5) /lpf U Epithel Cells (Auto) (0-5) /lpf Urine Bacteria (Auto) (Negative) Influenza Type A (PCR) Neg for Influ A (Neg) Influenza Type B (PCR) Neg for Influ B (Neg) 02/19/19 02/19/19 02/19/19 Range/Units 11:19 11:19 11:19 WBC (4.8-10.8) K/uL RBC (4.2-5.4) M/uL Hgb (12.0-16.0) g/dL Hct (37-47) % MCV (80-100) fL MCH (25-34) pg MCHC (32-36) g/dL RDW Std Deviation (36.4-46.3) fL RDW Coeff of Chrissy (11.5-14.5) % Plt Count (130-400) K/uL MPV (7.4-10.4) fL Immature Gran % (Auto) % Neut % (Auto) % Lymph % (Auto) % Jewell % (Auto) % Eos % (Auto) % Baso % (Auto) % Immature Gran # (Auto) (0.00-0.02) K/uL Neut # (Auto) (1.4-6.5) K/uL Lymph # (Auto) (1.2-3.4) K/uL Jewell # (Auto) (0.11-0.59) K/uL Eos # (Auto) (0-0.5) K/uL Baso # (Auto) (0-0.2) K/uL PT 18.8 H (9.0-12.0) Seconds INR 1.9 H (0.9-1.1) APTT 31.0 (21.0-31.0) Seconds PTT Ratio 1.1 VBG pH (7.36-7.41) VBG pCO2 (38-50) mmHg VBG pO2 mmHg VBG HCO3 mmol/L VBG O2 Saturation % VBG Base Excess mEq/L Barometric Pressure mm/Hg Sodium 137 (136-145) mmol/L Potassium 3.1 L (3.5-5.1) mmol/L Chloride 100 (98-107) mmol/L Carbon Dioxide 28 (21-32) mmol/L Anion Gap 9.0 (3-11) BUN 29 H (7-18) mg/dl Creatinine 1.36 H (0.6-1.2) mg/dl Est Cr Clr Drug Dosing 25.4 ml/min Est GFR ( Amer) 40.5 Est GFR (Non-Af Amer) 34.9 BUN/Creatinine Ratio 21.6 H (10-20) Glucose 107 H (70-99) mg/dl POC Glucose (70-99) Lactate 0.9 (0.4-2.0) mmol/L Calcium 9.4 (8.5-10.1) mg/dl Magnesium 1.4 L (1.8-2.4) mg/dl Total Bilirubin 0.5 (0.2-1) mg/dl Direct Bilirubin 0.2 (0-0.2) mg/dl AST 17 (15-37) U/L ALT 12 (12-78) U/L Alkaline Phosphatase 44 L (45-117) U/L Troponin I < 0.015 (0-0.045) ng/ml NT-Pro-B Natriuret Pep 1546 (0-1800) pg/ml Total Protein 6.3 L (6.4-8.2) gm/dl Albumin 3.1 L (3.4-5.0) gm/dl Lipase 195 (73-393) U/L Urine Color Urine Appearance (Clear) Urine pH (4.5-7.5) Ur Specific [place] (1.000-1.030) Urine Protein (Negative) Urine Glucose (UA) (Negative) Urine Ketones (Negative) Urine Blood (Negative) Urine Nitrite (Negative) Urine Bilirubin (Negative) Urine Urobilinogen (Negative) Ur Leukocyte Esterase (Negative) Urine WBC (Auto) (0-5) /hpf Urine RBC (Auto) (0-4) /hpf U Hyaline Cast (Auto) (0-5) /lpf U Epithel Cells (Auto) (0-5) /lpf Urine Bacteria (Auto) (Negative) Influenza Type A (PCR) (Neg) Influenza Type B (PCR) (Neg) 02/19/19 02/19/19 Range/Units 11:19 12:00 WBC (4.8-10.8) K/uL RBC (4.2-5.4) M/uL Hgb (12.0-16.0) g/dL Hct (37-47) % MCV (80-100) fL MCH (25-34) pg MCHC (32-36) g/dL RDW Std Deviation (36.4-46.3) fL RDW Coeff of Chrissy (11.5-14.5) % Plt Count (130-400) K/uL MPV (7.4-10.4) fL Immature Gran % (Auto) % Neut % (Auto) % Lymph % (Auto) % Jewell % (Auto) % Eos % (Auto) % Baso % (Auto) % Immature Gran # (Auto) (0.00-0.02) K/uL Neut # (Auto) (1.4-6.5) K/uL Lymph # (Auto) (1.2-3.4) K/uL Jewell # (Auto) (0.11-0.59) K/uL Eos # (Auto) (0-0.5) K/uL Baso # (Auto) (0-0.2) K/uL PT (9.0-12.0) Seconds INR (0.9-1.1) APTT (21.0-31.0) Seconds PTT Ratio VBG pH 7.47 H (7.36-7.41) VBG pCO2 35 L (38-50) mmHg VBG pO2 84 mmHg VBG HCO3 25 mmol/L VBG O2 Saturation 86.0 % VBG Base Excess 1.4 mEq/L Barometric Pressure 739.3 mm/Hg Sodium (136-145) mmol/L Potassium (3.5-5.1) mmol/L Chloride (98-107) mmol/L Carbon Dioxide (21-32) mmol/L Anion Gap (3-11) BUN (7-18) mg/dl Creatinine (0.6-1.2) mg/dl Est Cr Clr Drug Dosing ml/min Est GFR ( Amer) Est GFR (Non-Af Amer) BUN/Creatinine Ratio (10-20) Glucose (70-99) mg/dl POC Glucose (70-99) Lactate (0.4-2.0) mmol/L Calcium (8.5-10.1) mg/dl Magnesium (1.8-2.4) mg/dl Total Bilirubin (0.2-1) mg/dl Direct Bilirubin (0-0.2) mg/dl AST (15-37) U/L ALT (12-78) U/L Alkaline Phosphatase (45-117) U/L Troponin I (0-0.045) ng/ml NT-Pro-B Natriuret Pep (0-1800) pg/ml Total Protein (6.4-8.2) gm/dl Albumin (3.4-5.0) gm/dl Lipase (73-393) U/L Urine Color Yellow Urine Appearance Clear (Clear) Urine pH 5.0 (4.5-7.5) Ur Specific [place] 1.011 (1.000-1.030) Urine Protein Negative (Negative) Urine Glucose (UA) Negative (Negative) Urine Ketones Negative (Negative) Urine Blood Negative (Negative) Urine Nitrite Negative (Negative) Urine Bilirubin Negative (Negative) Urine Urobilinogen Negative (Negative) Ur Leukocyte Esterase 1+ H (Negative) Urine WBC (Auto) 5-10 H (0-5) /hpf Urine RBC (Auto) 0-4 (0-4) /hpf U Hyaline Cast (Auto) 1-5 (0-5) /lpf U Epithel Cells (Auto) 10-20 H (0-5) /lpf Urine Bacteria (Auto) Negative (Negative) Influenza Type A (PCR) (Neg) Influenza Type B (PCR) (Neg) Imaging Data Radiologist's Impression: Radiology results as stated below per my review and the radiologist's interpretation: XR chest 1V portable HISTORY: kendy hypoxia fever ro pna COMPARISON: Chest 12/30/2017. FINDINGS: There are low lung volumes. The heart remains mildly enlarged. Tortuous thoracic aorta, unchanged. A few bibasilar linear densities favor subsegmental atelectasis or scarring. These are not significant changed. No new focal lung consolidations to suggest pneumonia. No evidence for pulmonary edema. No pleural effusions. No pneumothorax. IMPRESSION: No significant change compared to the prior study. No acute process. Electronically signed by: Georges Toro M.D. 02/19/2019 11:[address] ANGIOGRAM OF THE CHEST CLINICAL HISTORY: Dyspnea. COMPARISON STUDY: Chest x-ray dated 02/19/2019. Chest CT dated 02/22/2013. TECHNIQUE: Following the IV administration of 118 cc of Optiray 320, CT angiogram of the chest was performed from the upper abdomen to the thoracic inlet utilizing the pulmonary embolus protocol. Images are reviewed in the axial, sagittal, and coronal planes. 3-D MIPS images are created and assessed. IV contrast was administered without complication. A dose lowering technique was utilized adhering to the principles of ALARA. The examination is degraded by motion artifact. CT DOSE: 292.70 mGy.cm FINDINGS: Thyroid: Atrophic versus surgically absent. Thoracic aorta: There is mild atherosclerotic calcification of the thoracic aorta, with is normal in caliber and demonstrates standard 3-vessel arch anatomy. No dissection is seen. Pulmonary vasculature: The pulmonary trunk is normal in caliber. There are no filling defects identified in main, lobar, or segmental pulmonary branches to suggest pulmonary embolus. Heart: The heart is normal in size and without pericardial effusion. The coronary arteries are densely calcified. Lungs and pleural spaces: Evaluation of the lung parenchyma is degraded by motion artifact. There is bibasilar scarring/atelectasis. No airspace consolidation is seen typical for pneumonia and there is no pleural effusion. The trachea and central airways are clear. Mediastinum: There is no mediastinal lymphadenopathy. Lynnette: Clear. Axillae: There is no axillary lymphadenopathy. Upper abdomen: There is a moderate hiatal hernia. Partially visualized upper abdominal viscera is within normal limits. Skeletal structures: The skeletal structures are osteopenic. No lytic or blastic bony lesions are seen. Degenerative change is noted in the shoulders and thoracic spine. Soft tissues: There is a 1.2 cm nodule in the subareolar left breast. This is new from 02/22/2013. IMPRESSION: 1. There is no evidence of pulmonary embolus in the main, lobar, or segmental pulmonary arteries. 2. There is no airspace consolidation or pleural effusion. 3. There is a 1.2 cm subareolar nodule in the left breast which was not seen on the 02/22/2013 examination. This is not well assessed by CT but is concerning for neoplasm. Nonemergent follow-up with diagnostic mammography is recommended. Electronically signed by: Abrahan Romero M.D. 02/19/2019 1:20 PM ECG Data Attestation: I personally reviewed and interpreted this ECG as follows: Indication: SOB/dyspnea Rate (beats per minute): 66 Rhythm: other (Sinus arrhythmia ) Findings: + other (WA 244, QRS 85, QTC 410); no ST depression, no ST elevation and no acute ischemic change Blood Pressure Blood Pressure Findings: Elevated blood pressure Blood Pressure Disposition: further management by hospitalist [facility] Narrative 1049: Past medical records reviewed. The patient was evaluated in room A09B, and a complete history and physical examination were performed. 1200: Signs stable on 2 L nasal cannula. INR is subtherapeutic. Chest x-ray is negative for pneumonia. Lactic acid and urinalysis negative. Flu negative. Will obtain CTA to rule out PE as well as possible pneumonia that is unable to be visualized on chest x-ray. 1340: The patient's vital signs are stable on 2L nasal cannula. The patient's CT is negative for PE and PNA. I spoke to Geraldine Riley PAC under Dr. Dom Riley Hospitalist about the patient's case. They are going to accept the patient for further evaluation. Impression & Plan Hypoxia, Asthmaticus, status Critical Care Time Critical Care Time: Yes Total Critical Care Time: 43 I have personally spent greater than 43 minutes of critical care time in the direct management of this patient. This includes bedside care, interpretation of diagnostic studies, and testing, discussion with consultants, patient, and family members, and other required patient management activities. This 43 minutes is in excess of all separately billable procedures. Discharge Plan Visit Data Chief Complaint: Flu Like Symptoms Stated Complaint: weakness/cough ED Provider: Jean Marie Rogel Discharge Problem: Hypoxia, Asthmaticus, status Patient Disposition: Being Evaluated by Hospitalist Forms Stand Alone Forms: My [facility] Prescriptions Prescriptions: No Action amoxicillin 500 mg Capsule 500 mg PO TID RF: 0 furosemide 40 mg Tablet 40 mg PO DAILY RF: 0 atorvastatin 40 mg Tablet 40 mg PO DAILY RF: 0 carvedilol [Coreg] 25 mg Tablet 25 mg PO BID RF: 0 carvedilol [Coreg] 6.25 mg Tablet 6.25 mg PO PM RF: 0 trazodone 50 mg Tablet 50 mg PO HS RF: 0 sucralfate [Carafate] 1 gram Tablet 1 g PO QID RF: 0 warfarin 2.5 mg Tablet 2.5 mg PO DAILY RF: 0 allopurinol 100 mg Tablet 100 mg PO DAILY RF: 0 spironolactone 25 mg Tablet 25 mg PO QPM RF: 0 isosorbide mononitrate 120 mg Tablet Extended Release 24 Hr 120 mg PO DAILY RF: 0 prednisone 10 mg Tablets,Dose Pack 10 mg PO DIRECTED RF: 0 calcitonin (salmon) 200 unit/actuation [place],Non-Aerosol 1 spray intranasal DAILY RF: 0 benzonatate 100 mg Capsule 100 mg PO TID PRN (Reason: Cough) RF: 0 budesonide 0.5 mg/2 mL Suspension For Nebulization 0.5 mg INHALATION BID RF: 0 gabapentin 100 mg Capsule 100 mg PO BID RF: 0 levalbuterol HCl [Xopenex] 1.25 mg/3 mL Solution For Nebulization 1.25 mg INHALATION TID PRN (Reason: Wheezing) RF: 0 tamoxifen 20 mg Tablet 20 mg PO DAILY RF: 0 iron-vit B wtzl-[id number]-liver ex Tablet 1 tab PO DAILY RF: 0 levothyroxine 150 mcg Capsule 150 mcg PO DAILY RF: 0 losartan 50 mg Tablet 50 mg PO DAILY RF: 0 aspirin [Aspirin Low Dose] 81 mg Tablet,Delayed Release (Dr/Ec) 81 mg PO DAILY RF: 0 pantoprazole [Protonix] 40 mg Tablet,Delayed Release (Dr/Ec) 40 mg PO DAILY RF: 0 nitroglycerin [Nitrostat] 0.4 mg Tablet, Sublingual 0.4 mg buccal DAILY RF: 0 montelukast 10 mg Tablet 10 mg PO PM RF: 0 ranitidine HCl 150 mg Capsule 150 mg PO BID RF: 0 cholecalciferol (vitamin D3) [Vitamin D3] 1,000 unit Capsule 1,000 unit PO DAILY RF: 0 escitalopram oxalate [Lexapro] 10 mg Tablet 10 mg PO DAILY RF: 0 hydralazine 10 mg Tablet 10 mg PO BID RF: 0 Colace Clear 50 mg Capsule 50 mg PO DAILY PRN (Reason: Constipation) RF: 0 potassium chloride 10 mEq Tablet Extended Release 10 meq PO BID RF: 0 fexofenadine 180 mg Tablet 180 mg PO DAILY RF: 0 calcium carbonate 600 mg calcium (1,500 mg) Tablet 1,500 mg PO DAILY RF: 0 folic acid 1 mg Tablet 1 mg PO DAILY RF: 0 Referrals Referrals: Cate Stone MD [Primary Care Provider] - Discharge Problem: Asthmaticus, status Qualifiers: Asthma severity: mild Asthma persistence: unspecified Qualified Code(s): J45.902 - Unspecified asthma with status asthmaticus The scribe's documentation has been prepared under my direction and personally reviewed by me in its entirety. I confirm that the note above accurately reflects all work, treatment, procedures, and medical decision making performed by me.
[2019-02-19] MEDS ORDERED: POTASSIUM CHLORIDE 20 MEQ TABCR PO STA (16:27)
[2019-02-19] MEDS ORDERED: LEVOFLOXACIN/D5W 500 MG/100 ML BAG IV ONE (16:30)
--- NOTE | 2019-02-19 16:37 | Cardiology Consultation ---
Date of Consultation February 19, 2019 Assessment & Plan (1) Asthmaticus, status: Patient with history of reactive airway disease with multiple recent exacerbations on refractory to outpatient management. Now with relapse again today. Exam does not suggest significant volume overload or pulmonary edema or findings of "cardiac wheezes" Patient begun on IV antibiotics and oral prednisone to treat would have low threshold for IV corticosteroids if necessary Suspect will require long taper and possible chronic low-dose prednisone We will need to watch fluid status weights and blood pressure cautiously as patient has very narrow edge of brittle diastolic heart failure, currently compensate Supplement potassium and magnesium given past history of atrial arrhythmia (2) Hypoxia: (3) Labile hypertension: (4) Diastolic heart failure: History of Present Illness Reason for Consultation: Respiratory distress Requesting Physician: Dr Fernandes Attending Physician: Leisa Fernandes, History of Present Illness Patient is an 88-year-old female with complex history which includes 1. Long-standing labile hypertension with hypertensive heart disease and brittle diastolic, class 3congestive heart failure. 2. Past paroxysmal atrial fibrillation. 3. Chronic coumadin anticoagulation therapy. 4. History of prior lacunar stroke. 5. Chronic renal insufficiency, stage III. 6. Mild nonobstructive coronary atherosclerosis by cardiac catheterization 2011. 7. Asthmatic lung disease with recent exacerbation and poor response to outpatient medical therapy Presents this admission noting ongoing with worsening dyspnea with intermittent exacerbations since mid summer no overt volume overload with symptoms responding to rescue antibiotic steroid pack with relapse shortly after completion. Today per daughter patient was markedly dyspneic with minimal exertion. No chest pains still with wheezy cough. Patient febrile on presentation to the emergency room after evaluation by primary care physician. Patient initially more comfortable since presentation. Chest x-ray CT scan of the chest revealed no evidence of pulmonary edema/pneumonia/pulmonary embolus. 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 sulfamethoxazole Allergy Mild RASH Verified 05/23/18 09:39 trimethoprim Allergy Mild RASH Verified 05/23/18 09:39 amlodipine Allergy Unknown Unverified 02/19/19 14:30 amoxicillin Allergy Rash Unverified 02/19/19 14:30 azithromycin Allergy Unknown Unverified 02/19/19 14:30 cefuroxime [From Ceftin] Allergy Diarrhea Unverified 02/19/19 14:30 ipratropium Allergy Unknown Unverified 02/19/19 14:30 Sulfa (Sulfonamide Allergy Hives Unverified 02/19/19 14:30 Antibiotics) Home Medications Home Medications Medication Instructions Recorded Confirmed Type allopurinol 200 mg PO DAILY 02/19/19 02/19/19 History amoxicillin 500 mg PO BID PRN 02/19/19 02/19/19 History arformoterol [Brovana] 15 mcg INHALATION BID PRN 02/19/19 02/19/19 History aspirin [Aspirin Low Dose] 81 mg PO DAILY 02/19/19 02/19/19 History atorvastatin 40 mg PO DAILY@1800 02/19/19 02/19/19 History azelastine 1 spray INTRANASAL BID 02/19/19 02/19/19 History benzonatate 100 mg PO TID PRN 02/19/19 02/19/19 History budesonide 0.5 mg INHALATION BID 02/19/19 02/19/19 History calcitonin (salmon) 1 spray INTRANASAL DAILY 02/19/19 02/19/19 History calcium carbonate 1,200 mg PO DAILY@1800 02/19/19 02/19/19 History carvedilol [Coreg] 6.25 mg PO DAILY@1800 02/19/19 02/19/19 History carvedilol [Coreg] 12.5 mg PO BID 02/19/19 02/19/19 History cholecalciferol (vitamin D3) 2,000 unit PO DAILY 02/19/19 02/19/19 History [Vitamin D3] docusate sodium 500 mg PO BID 02/19/19 02/19/19 History escitalopram oxalate [Lexapro] 5 mg PO DAILY 02/19/19 02/19/19 History fexofenadine 180 mg PO DAILY 02/19/19 02/19/19 History folic acid 1 mg PO DAILY 02/19/19 02/19/19 History furosemide 40 mg PO SUTUTHFR 02/19/19 02/19/19 History furosemide 60 mg PO MOWESA 02/19/19 02/19/19 History gabapentin 100 mg PO HS@2200 02/19/19 02/19/19 History hydralazine 10 mg PO BID PRN 02/19/19 02/19/19 History iron-vit B xtjh-H-hfw-liver ex 1 tab PO MOWEFR 02/19/19 02/19/19 History isosorbide mononitrate 120 mg PO HS@2200 02/19/19 02/19/19 History levalbuterol HCl [Xopenex] 1.25 mg INHALATION TID 02/19/19 02/19/19 History levothyroxine 150 mcg PO DAILY 02/19/19 02/19/19 History losartan 50 mg PO HS@2200 02/19/19 02/19/19 History montelukast 10 mg PO DAILY@1800 02/19/19 02/19/19 History nitroglycerin [Nitrostat] 0.4 mg BUCCAL DAILY PRN 02/19/19 02/19/19 History nystatin 5 ml PO BID 02/19/19 02/19/19 History pantoprazole [Protonix] 40 mg PO BID 02/19/19 02/19/19 History potassium chloride 10 meq PO MOTUWETHFR 02/19/19 02/19/19 History prednisone 10 mg PO DIRECTED PRN 02/19/19 02/19/19 History ranitidine HCl 150 mg PO DAILY 02/19/19 02/19/19 History ranitidine HCl 300 mg PO DAILY@1800 02/19/19 02/19/19 History sodium chloride [Saline Nasal] 2 spray INTRANASAL QID PRN 02/19/19 02/19/19 History spironolactone 12.5 mg PO DAILY@0900 02/19/19 02/19/19 History sucralfate [Carafate] 1 g PO QID PRN 02/19/19 02/19/19 History tamoxifen 20 mg PO DAILY 02/19/19 02/19/19 History trazodone 25 mg PO HS@2200 02/19/19 02/19/19 History triamcinolone acetonide [Nasacort] 1 spray INTRANASAL BID 02/19/19 02/19/19 History warfarin 2.5 mg PO SUTUWEFRSA 02/19/19 02/19/19 History warfarin 3.75 mg PO MOTH 02/19/19 02/19/19 History Patient History Medical History Atrial fibrillation (Chronic) Bronchial asthma (Chronic) Repeated Infections Chronic renal insufficiency (Chronic) Baseline Creatinine - 1.6 Coronary artery disease (Chronic) Diastolic heart failure (Chronic) Dyslipidemia (Chronic) Gastro-esophageal reflux (Chronic) Gout (Chronic) Hypertension (Chronic) Hypothyroidism (Chronic) IBS (irritable bowel syndrome) (Chronic) Osteoporosis (Chronic) on Prolia Rheumatic fever (Resolved) 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, 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 Transient ischemic attack (Resolved) 1983 - No deficits - right eye droop Surgical History History of appendectomy (Resolved) 1953 History of breast biopsy (Resolved) Left - Biopsy / Lumpectomy 03/28/18 History of cardiac cath (Resolved) 2011 History of colonoscopy (Resolved) 03/02/2011 History of esophagogastroduodenoscopy (EGD) (Resolved) 2010, 2013, 2017 History of hernia repair (Resolved) 2009 History of hysterectomy (Resolved) 1965 History of thyroidectomy (Resolved) 06/2015 - Bilateral History of urologic surgery (Resolved) 1974 - Bladder Suspension Family History Mother , Passed age 73 of [place] No problems noted. Father , Passed age 50 of [place] No problems noted. Brother Lung fibrosis Brother , Passed age 63 of allergic reaction to antibiotics No problems noted. Sister , Passed age 83 of "electrolyte disturbances" DCIS (ductal carcinoma in situ) Sister , Passed age 84 from post surgical complications No problems noted. Sister No problems noted. Daughter No problems noted. Daughter No problems noted. Son No problems noted. 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 [employer] Feels Safe at Home: Yes Smoking Status: Never smoker Hx Alcohol Use: Yes Alcohol type: wine Hx Substance Use: No caffeine: No during the past year weight has: remained stable Physical Exam Constitutional: WD/WN, vitals as above Eyes: PERRL, conjunctivae normal, anicteric sclerae ENMT: external ear and nose normal, oropharynx normal Neck: trachea midline, no thyromegaly Respiratory: no labored breathing Auscultation: + wheezes (Bilateral with cough) Coarse rhonchorous cough present Cardiovascular: Rate/Rhythm: regular rate and regular rhythm Heart Sounds: normal S1, normal S2 and + murmur (Grade 1/6 systolic murmur right upper sternal border, no diastolic); no gallop Palpation: normal PMI Vessels: normal carotid upstroke and radial pulses present; no JVD and no carotid bruit Extremities: no edema Gastrointestinal (Abdomen): normal bowel sounds, soft, nontender, no hepatos plenomegaly Musculoskeletal: no cyanosis or clubbing, extremities motor strength 5/5 Skin: no rashes, warm and dry Neurologic: PERRL, EOMI, accommodation nl, no face palsy, no dysarthria Psychiatric: A+Ox3, euthymic affect Results & Data Vital Signs (Past 12 Hours) Vital Signs Temp Pulse Pulse Resp BP BP Pulse Ox 02/19/19 15:59 61 20 139/84 97 02/19/19 13:58 69 20 132/71 93 02/19/19 12:00 71 22 152/78 H 95 02/19/19 11:28 68 25 H 153/72 H 94 02/19/19 10:56 94 02/19/19 10:55 87 L 02/19/19 10:14 37.9 C H 76 20 131/70 92 Laboratory Results Laboratory Results - last 24 hr 02/19/19 02/19/19 02/19/19 11:10 11:17 11:19 WBC 6.14 RBC 3.89 L Hgb 11.5 L Hct 35.3 L MCV 90.7 MCH 29.6 MCHC 32.6 RDW Std Deviation 54.7 H RDW Coeff of Chrissy 16.7 H Plt Count 143 MPV 10.6 H Immature Gran % (Auto) 0.5 Neut % (Auto) 77.8 Lymph % (Auto) 14.0 [place] % (Auto) 6.5 Eos % (Auto) 0.7 Baso % (Auto) 0.5 Immature Gran # (Auto) 0.03 H Neut # (Auto) 4.78 Lymph # (Auto) 0.86 L [place] # (Auto) 0.40 Eos # (Auto) 0.04 Baso # (Auto) 0.03 PT INR APTT PTT Ratio VBG pH VBG pCO2 VBG pO2 VBG HCO3 VBG O2 Saturation VBG Base Excess Barometric Pressure Sodium Potassium Chloride Carbon Dioxide Anion Gap BUN Creatinine Est Cr Clr Drug Dosing Est GFR ( Amer) Est GFR (Non-Af Amer) BUN/Creatinine Ratio Glucose POC Glucose 96 Lactate Calcium Magnesium Total Bilirubin Direct Bilirubin AST ALT Alkaline Phosphatase Troponin I NT-Pro-B Natriuret Pep Total Protein Albumin Lipase Urine Color Urine Appearance Urine pH Ur Specific [place] Urine Protein Urine Glucose (UA) Urine Ketones Urine Blood Urine Nitrite Urine Bilirubin Urine Urobilinogen Ur Leukocyte Esterase Urine WBC (Auto) Urine RBC (Auto) U Hyaline Cast (Auto) U Epithel Cells (Auto) Urine Bacteria (Auto) Influenza Type A (PCR) Neg for Influ A Influenza Type B (PCR) Neg for Influ B 02/19/19 02/19/19 02/19/19 11:19 11:19 11:19 WBC RBC Hgb Hct MCV MCH MCHC RDW Std Deviation RDW Coeff of Chrissy Plt Count MPV Immature Gran % (Auto) Neut % (Auto) Lymph % (Auto) [place] % (Auto) Eos % (Auto) Baso % (Auto) Immature Gran # (Auto) Neut # (Auto) Lymph # (Auto) [place] # (Auto) Eos # (Auto) Baso # (Auto) PT 18.8 H INR 1.9 H APTT 31.0 PTT Ratio 1.1 VBG pH VBG pCO2 VBG pO2 VBG HCO3 VBG O2 Saturation VBG Base Excess Barometric Pressure Sodium 137 Potassium 3.1 L Chloride 100 Carbon Dioxide 28 Anion Gap 9.0 BUN 29 H Creatinine 1.36 H Est Cr Clr Drug Dosing 25.4 Est GFR ( Amer) 40.5 Est GFR (Non-Af Amer) 34.9 BUN/Creatinine Ratio 21.6 H Glucose 107 H POC Glucose Lactate 0.9 Calcium 9.4 Magnesium 1.4 L Total Bilirubin 0.5 Direct Bilirubin 0.2 AST 17 ALT 12 Alkaline Phosphatase 44 L Troponin I < 0.015 NT-Pro-B Natriuret Pep 1546 Total Protein 6.3 L Albumin 3.1 L Lipase 195 Urine Color Urine Appearance Urine pH Ur Specific [place] Urine Protein Urine Glucose (UA) Urine Ketones Urine Blood Urine Nitrite Urine Bilirubin Urine Urobilinogen Ur Leukocyte Esterase Urine WBC (Auto) Urine RBC (Auto) U Hyaline Cast (Auto) U Epithel Cells (Auto) Urine Bacteria (Auto) Influenza Type A (PCR) Influenza Type B (PCR) 02/19/19 02/19/19 11:19 12:00 WBC RBC Hgb Hct MCV MCH MCHC RDW Std Deviation RDW Coeff of Chrissy Plt Count MPV Immature Gran % (Auto) Neut % (Auto) Lymph % (Auto) [place] % (Auto) Eos % (Auto) Baso % (Auto) Immature Gran # (Auto) Neut # (Auto) Lymph # (Auto) [place] # (Auto) Eos # (Auto) Baso # (Auto) PT INR APTT PTT Ratio VBG pH 7.47 H VBG pCO2 35 L VBG pO2 84 VBG HCO3 25 VBG O2 Saturation 86.0 VBG Base Excess 1.4 Barometric Pressure 739.3 Sodium Potassium Chloride Carbon Dioxide Anion Gap BUN Creatinine Est Cr Clr Drug Dosing Est GFR ( Amer) Est GFR (Non-Af Amer) BUN/Creatinine Ratio Glucose POC Glucose Lactate Calcium Magnesium Total Bilirubin Direct Bilirubin AST ALT Alkaline Phosphatase Troponin I NT-Pro-B Natriuret Pep Total Protein Albumin Lipase Urine Color Yellow Urine Appearance Clear Urine pH 5.0 Ur Specific [place] 1.011 Urine Protein Negative Urine Glucose (UA) Negative Urine Ketones Negative Urine Blood Negative Urine Nitrite Negative Urine Bilirubin Negative Urine Urobilinogen Negative Ur Leukocyte Esterase 1+ H Urine WBC (Auto) 5-10 H Urine RBC (Auto) 0-4 U Hyaline Cast (Auto) 1-5 U Epithel Cells (Auto) 10-20 H Urine Bacteria (Auto) Negative Influenza Type A (PCR) Influenza Type B (PCR) (1) Asthmaticus, status Asthma persistence: unspecified Asthma severity: mild Qualified Code(s): J45.902 - Unspecified asthma with status asthmaticus
[2019-02-19] MEDS ORDERED: Nursing to Pharmacy Communication ONE (17:32)
[2019-02-19] MEDS: carvediloL 12.5 MG TAB PO SCH (17:44)
[2019-02-19] MEDS: carvediloL 6.25 MG TAB PO SCH (17:45)
[2019-02-19] MEDS: MONTELUKAST SODIUM 10 MG TABLET PO SCH (17:45)
[2019-02-19] MEDS: ATORVASTATIN 40 MG TAB PO SCH (17:47)
[2019-02-19] MEDS: WARFARIN SOD 2.5 MG TAB PO SCH (17:48)
[2019-02-19] MEDS: TRIAMCINOLONE ACET NASAL SPRAY 10.8ML BTL SCH ×2 (17:53→21:19)
[2019-02-19] MEDS ORDERED: BUDESONIDE 0.5 MG/2 ML VIAL (PULMICORT) INH SCH ×2 (18:00→21:00)
[2019-02-19] MEDS: MAGNESIUM SULFATE / D5W 1 GM/100 ML BAG IV SCH ×2 (18:43→18:44)
[2019-02-19] MEDS ORDERED: LEVALBUTEROL HCL 1.25 MG/3 ML NEB INH SCH (19:00)
[2019-02-19] MEDS: LEVALBUTEROL HCL 1.25 MG/3 ML NEB INH SCH (19:13)
[2019-02-19] MEDS: methylPREDNISolone 40 MG in SYRINGE 0 ML IV SCH (19:47)
--- NOTE | 2019-02-19 20:26 | History & Physical Report ---
Date of Service February 19, 2019 Assessment & Plan (1) Asthma exacerbation: (2) Hypoxia: -Admit to [facility] with telemetry -Patient presenting from home with reports of increased cough and shortness of breath -Patient with history of asthma with frequent exacerbations -In the ED, found to be hypoxic on room air at 87%, this improved 2 L of oxygen via nasal cannula -CXR and CTA chest negative for signs of infiltrate or consolidation: CTA chest negative for PE -will start IV steroids -Empiric Levaquin -Nebulizer treatments -Pulmonary consult per family request (3) Chronic diastolic CHF (congestive heart failure): -Patient with history of brittle diastolic CHF with frequent exacerbations -Currently examines to be euvolemic -will continue current diuretic regimen -Cardiology consult per family request (4) Hypomagnesemia: (5) Hypokalemia: -Replace, follow electrolytes (6) History of breast cancer: -S/P lumpectomy -Currently on tamoxifen -CTA chest noted 1.2 cm subareolar nodule in the left breast; patient had mammogram on 02/11/2019 that showed avascular superficial hypoechoic mass with well-defined margins measuring 11 x 6 x 11 mm -follow-up diagnostic mammogram in 6 months recommended -Patient follows closely with Dr. Angelica Pavon (7) CAD (coronary artery disease): -Nonobstructive -Appears stable -Continue aspirin, statin, beta-ced, nitrate (8) Labile hypertension: -BP currently controlled -Continue carvedilol, isosorbide, losartan, diuretics (9) PAF (paroxysmal atrial fibrillation): -Currently in NSR -Rate controlled on beta-ced -Anticoagulated on Coumadin, INR 1.9 (10) Hypothyroidism (acquired): -Continue levothyroxine (11) CKD (chronic kidney disease), stage III: -Baseline creatinine runs in the mid 1's -Noted to be 1.3 today -Monitor renal functions, avoid nephrotoxic agents when able (12) DVT prophylaxis: -Anticoagulated on Coumadin History of Present Illness Chief Complaint: Shortness of breath Primary Care Provider: Cate Stone MD 88-year-old female who presents to the ED for shortness of breath. Patient recently has been following closely with cardiology for management of chronic di astolic CHF. Diuretics were increased about 2 weeks ago. Over the weekend, patient noted a 2 pound weight gain and took an additional dose of Lasix on Monday. She still remains about 2 pounds over her dry weight. Yesterday, patient developed wheezing, coughing, shortness of breath. She also has history of asthma with history of frequent exacerbations. Per daughter, patient has been off antibiotics and steroids for about the past 3 weeks. She has an amoxicillin and prednisone rescue pack to take at home as needed. Early this morning, around 5 AM patient shortness of breath acutely worsened and she was also found to have a fever of 102. There was some mild confusion noted as well. Daughter gave her a nebulizer treatment, dose of prednisone, dose of amoxicillin, Tylenol. Her symptoms did not improve and she was evaluated by her PCP. While there, pulse ox was found to be 90% and patient was referred to the ER for further evaluation. Cough is been productive for green sputum. Daughter notes being ill with similar symptoms a couple weeks ago. Despite being 2 pounds over her dry weight, patient reports her lower extremity edema has been significantly improving. She reports some episodic chest pain that seems to be associated with coughing. No lightheadedness, dizziness, diaphoresis, syncopal events. She denies abdominal pain, nausea, vomiting, diarrhea. No urinary s ymptoms. In the ED, patient was found to be hypoxic on room air at 87%. This improved with oxygen 2 L via via nasal cannula. CXR is negative for acute cardiopulmonary findings. CTA chest is negative for PE and other acute pulmonary findings. Labs show a mild hypokalemia and hypomagnesemia and otherwise are unremarkable. 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 sulfamethoxazole Allergy Mild RASH Verified 05/23/18 09:39 trimethoprim Allergy Mild RASH Verified 05/23/18 09:39 amlodipine Allergy Unknown Unverified 02/19/19 14:30 amoxicillin Allergy Rash Unverified 02/19/19 14:30 azithromycin Allergy Unknown Unverified 02/19/19 14:30 cefuroxime [From Ceftin] Allergy Diarrhea Unverified 02/19/19 14:30 ipratropium Allergy Unknown Unverified 02/19/19 14:30 Sulfa (Sulfonamide Allergy Hives Unverified 02/19/19 14:30 Antibiotics) Home Medications Home Medications Medication Instructions Recorded Confirmed Type allopurinol 200 mg PO DAILY 02/19/19 02/19/19 History amoxicillin 500 mg PO BID PRN 02/19/19 02/19/19 History arformoterol [Brovana] 15 mcg INHALATION BID PRN 02/19/19 02/19/19 History aspirin [Aspirin Low Dose] 81 mg PO DAILY 02/19/19 02/19/19 History atorvastatin 40 mg PO DAILY@1800 02/19/19 02/19/19 History azelastine 1 spray INTRANASAL BID 02/19/19 02/19/19 History benzonatate 100 mg PO TID PRN 02/19/19 02/19/19 History budesonide 0.5 mg INHALATION BID 02/19/19 02/19/19 History calcitonin (salmon) 1 spray INTRANASAL DAILY 02/19/19 02/19/19 History calcium carbonate 1,200 mg PO DAILY@1800 02/19/19 02/19/19 History carvedilol [Coreg] 6.25 mg PO DAILY@1800 02/19/19 02/19/19 History carvedilol [Coreg] 12.5 mg PO BID 02/19/19 02/19/19 History cholecalciferol (vitamin D3) 2,000 unit PO DAILY 02/19/19 02/19/19 History [Vitamin D3] docusate sodium 500 mg PO BID 02/19/19 02/19/19 History escitalopram oxalate [Lexapro] 5 mg PO DAILY 02/19/19 02/19/19 History fexofenadine 180 mg PO DAILY 02/19/19 02/19/19 History folic acid 1 mg PO DAILY 02/19/19 02/19/19 History furosemide 40 mg PO SUTUTHFR 02/19/19 02/19/19 History furosemide 60 mg PO MOWESA 02/19/19 02/19/19 History gabapentin 100 mg PO HS@2200 02/19/19 02/19/19 History hydralazine 10 mg PO BID PRN 02/19/19 02/19/19 History iron-vit B [id number]-liver ex 1 tab PO MOWEFR 02/19/19 02/19/19 History isosorbide mononitrate 120 mg PO HS@2200 02/19/19 02/19/19 History levalbuterol HCl [Xopenex] 1.25 mg INHALATION TID 02/19/19 02/19/19 History levothyroxine 150 mcg PO DAILY 02/19/19 02/19/19 History losartan 50 mg PO HS@2200 02/19/19 02/19/19 History montelukast 10 mg PO DAILY@1800 02/19/19 02/19/19 History nitroglycerin [Nitrostat] 0.4 mg BUCCAL DAILY PRN 02/19/19 02/19/19 History nystatin 5 ml PO BID 02/19/19 02/19/19 History pantoprazole [Protonix] 40 mg PO BID 02/19/19 02/19/19 History potassium chloride 10 meq PO MOTUWETHFR 02/19/19 02/19/19 History prednisone 10 mg PO DIRECTED PRN 02/19/19 02/19/19 History ranitidine HCl 150 mg PO DAILY 02/19/19 02/19/19 History ranitidine HCl 300 mg PO DAILY@1800 02/19/19 02/19/19 History sodium chloride [Saline Nasal] 2 spray INTRANASAL QID PRN 02/19/19 02/19/19 History spironolactone 12.5 mg PO DAILY@0900 02/19/19 02/19/19 History sucralfate [Carafate] 1 g PO QID PRN 02/19/19 02/19/19 History tamoxifen 20 mg PO DAILY 02/19/19 02/19/19 History trazodone 25 mg PO HS@2200 02/19/19 02/19/19 History triamcinolone acetonide [Nasacort] 1 spray INTRANASAL BID 02/19/19 02/19/19 History warfarin 2.5 mg PO SUTUWEFRSA 02/19/19 02/19/19 History warfarin 3.75 mg PO MOTH 02/19/19 02/19/19 History Past Med/Surg History Medical History Dyslipidemia (Chronic) IBS (irritable bowel syndrome) (Chronic) Transient ischemic attack (Resolved) 1983 - No deficits - right eye droop Asthma, moderate persistent (Chronic) Chronic diastolic CHF (congestive heart failure) (Chronic) History of breast cancer (Chronic) Anxiety (Chronic) CKD (chronic kidney disease), stage III (Chronic) H/O total thyroidectomy (Chronic) Hysterectomy (Chronic 02/22/13) GERD (gastroesophageal reflux disease) (Chronic) Heart disease (Chronic) "nonobstructive disease per cath 2011" Osteoporosis (Chronic 02/22/13) Labile hypertension (Chronic) Hypothyroidism (acquired) (Chronic) "s/p thyroidectomy and radioiodine therapy for cancer treatment" PAF (paroxysmal atrial fibrillation) (Chronic) Anticoagulated on Coumadin (Chronic) Gout (Chronic) 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 Father , Passed age 50 of [place] No problems noted. Brother Lung fibrosis Brother , Passed age 63 of allergic reaction to antibiotics No problems noted. Sister , Passed age 83 of "electrolyte disturbances" DCIS (ductal carcinoma in situ) Sister , Passed age 84 from post surgical complications No problems noted. Sister No problems noted. Daughter No problems noted. Daughter No problems noted. Son No problems noted. 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) Other Information That Helps Us Care for You: No Feels Safe at Home: Yes Safety Concerns: Feels Safe At This Time Smoking Status: Never smoker Second Hand Exposure: No ; Hx Alcohol Use: No Hx Substance Use: No caffeine: No during the past year weight has: remained stable Review of Systems Review of Systems: ROS per HPI, all other systems reviewed and negative Physical Exam Constitutional: WD/WN, vitals as above Eyes: PERRL, conjunctivae normal, anicteric sclerae ENMT: external ear and nose normal, oropharynx normal Respiratory: normal respiratory effort, + cough and able to speak in complete sentences; no respiratory distress Auscultation: + diminished lung sounds Cardiovascular: Rate/Rhythm: regular rate and regular rhythm Vessels: normal peripheral pulses Extremities: no edema Gastrointestinal (Abdomen): normal bowel sounds, soft, nontender, no hepatosplenomegaly Musculoskeletal: no cyanosis or clubbing, extremities motor strength 5/5 Skin: no rashes, warm and dry Neurologic: PERRL, EOMI, accommodation nl, no face palsy, no dysarthria Psychiatric: A+Ox3, euthymic affect Results & Data Vital Signs (Past 12 Hours) Vital Signs Temp Pulse Pulse Resp BP BP Pulse Ox 02/19/19 18:38 95 02/19/19 15:59 61 20 139/84 97 02/19/19 13:58 69 20 132/71 93 02/19/19 12:00 71 22 152/78 H 95 02/19/19 11:28 68 25 H 153/72 H 94 02/19/19 10:56 94 02/19/19 10:55 87 L 02/19/19 10:14 37.9 C H 76 20 131/70 92 Laboratory Results Short CBC 02/19/19 Range/Units 11:19 WBC 6.14 (4.8-10.8) K/uL Hgb 11.5 L (12.0-16.0) g/dL Hct 35.3 L (37-47) % Plt Count 143 (130-400) K/uL BMP 02/19/19 11:19 Sodium 137 Potassium 3.1 L Chloride 100 Carbon Dioxide 28 BUN 29 H Creatinine 1.36 H Glucose 107 H Calcium 9.4 Cardiac Enzymes 02/19/19 Range/Units 11:19 Troponin I < 0.015 (0-0.045) ng/ml Liver Function 02/19/19 Range/Units 11:19 Total Bilirubin 0.5 (0.2-1) mg/dl Direct Bilirubin 0.2 (0-0.2) mg/dl AST 17 (15-37) U/L ALT 12 (12-78) U/L Alkaline Phosphatase 44 L (45-117) U/L Albumin 3.1 L (3.4-5.0) gm/dl Urine 02/19/19 Range/Units 12:00 Urine Color Yellow Urine Appearance Clear (Clear) Urine pH 5.0 (4.5-7.5) Ur Specific [place] 1.011 (1.000-1.030) Urine Protein Negative (Negative) Urine Glucose (UA) Negative (Negative) Diagnostic Findings CXR IMPRESSION: No significant change compared to the prior study. No acute process. CTA CHEST IMPRESSION: 1. There is no evidence of pulmonary embolus in the main, lobar, or segmental pulmonary arteries. 2. There is no airspace consolidation or pleural effusion. 3. There is a 1.2 cm subareolar nodule in the left breast which was not seen on the 02/22/2013 examination. This is not well assessed by CT but is concerning for neoplasm. Nonemergent follow-up with diagnostic mammography is recommended. Code Status & VTE Plan Code Status Patient is a full code as per my discussion with patient and her daughter who is the bedside. VTE Prophylaxis Plan VTE Prophylaxis will be ordered: Yes Supervising Physician Co-Signing Physician Notes I have seen and examined the patient and have discussed the case with the provider above. I agree with the assessment and plan as stated. 88 yo F with increased shortness of breath and fevers. Recent increase in Lasix as outpatient under the care of Cardiology team. Resulting K 3.1 today. Mg 1.4 and daughter reports this is always the case. May be related to Mg -wasting from PPI. Feels better since admission, but no breathing treatments given on the floor yet. Cardiology feels she is compensated from a heart failure standpoint. Exam reveals a hemodynamically stable patient in no acute respiratory distress who is mentating at baseline. wheezing is present throughout all lung mehta but air movement is heard. Heart exam is unremarkable and she has no peripheral edema. Agree with plan as above to treat asthma flare with steroids, levaquin and will await pulmonary evaluation in am. Holding budesonide nebs while patient receiving steroids. DO Dom
[2019-02-19] MEDS ORDERED: NYSTATIN SUSP 500,000 U/5 ML UDC PO SCH (21:00)
[2019-02-19] MEDS: PANTOprazole 40 MG TAB PO SCH (21:20)
[2019-02-19] MEDS: LOSARTAN POTASSIUM 50 MG TAB PO SCH (21:21)
[2019-02-19] MEDS: TRAZODONE HCL 50 MG TAB PO SCH (21:21)
[2019-02-19] MEDS: ISOSORBIDE MONO EXTENDED REL 60 MG TABCR PO SCH (21:22)
[2019-02-19] MEDS: GABAPENTIN 100 MG CAP PO SCH (21:23)
[2019-02-20] MEDS: LEVALBUTEROL HCL 1.25 MG/3 ML NEB INH SCH ×4 (01:21→19:35)
[2019-02-20] MEDS: methylPREDNISolone 40 MG in SYRINGE 0 ML IV SCH (02:37)
[2019-02-20] MEDS: LEVOTHYROXINE SODIUM 150 MCG TABLET PO SCH (06:04)
[2019-02-20] MEDS: carvediloL 12.5 MG TAB PO SCH ×2 (06:04→17:51)
[2019-02-20 06:46] LABS: Hematocrit (blood only) 35.7 % (37-47); Hemoglobin 11.6 g/dL (12.0-16.0); Mean Corpuscular Hemoglobin 29.7 pg (25-34); Mean Corpuscular Hgb Conc 32.5 g/dL (32-36); Mean Corpuscular Volume 91.3 fL (80-100); Mean Platelet Volume 10.4 fL (7.4-10.4); Platelet Count 149 K/uL (130-400); RDW Coefficient of Variation 16.7 % (11.5-14.5); RDW Standard Deviation 55.4 fL (36.4-46.3); Red Blood Count 3.91 M/uL (4.2-5.4); White Blood Count 7.31 K/uL (4.8-10.8)
[2019-02-20 06:56] LABS: INR 2.1 (0.9-1.1); Prothrombin Time 20.6 Seconds (9.0-12.0)
[2019-02-20 07:31] LABS: BUN Creatinine Ratio 19.3 (10-20); Creatinine Clr Calc Pharmacy 21.2 ml/min; Est GFR (Non-African American) 29.3; Magnesium 2.1 mg/dl (1.8-2.4); Potassium 4.3 mmol/L (3.5-5.1)
[2019-02-20] MEDS: FEXOFENADINE HCL 180 MG TAB PO SCH (08:07)
[2019-02-20] MEDS: allopurinoL 100 MG TAB PO SCH (08:07)
[2019-02-20] MEDS: ESCITALOPRAM OXALATE 10 MG TAB PO SCH (08:07)
[2019-02-20] MEDS: ASPIRIN 81 MG ECTAB PO SCH (08:08)
[2019-02-20] MEDS: TAMOXIFEN CITRATE 10 MG TABLET PO SCH (08:08)
[2019-02-20] MEDS: SPIRONOLACTONE 25 MG TAB PO SCH (08:09)
[2019-02-20] MEDS: TRIAMCINOLONE ACET NASAL SPRAY 10.8ML BTL SCH ×2 (08:09→20:29)
[2019-02-20] MEDS: PANTOprazole 40 MG TAB PO SCH ×2 (08:10→20:28)
[2019-02-20] MEDS: FOLIC ACID 1 MG TAB PO SCH (08:11)
[2019-02-20] MEDS: BENZONATATE 100 MG CAPSULE PO PRN ×2 (08:11→20:01)
[2019-02-20] MEDS: MAGNESIUM OXIDE 400 MG TAB PO SCH (08:12)
[2019-02-20] MEDS: CALCITONIN SALMON NA 200 IU/AC 3.7 ML BTL SCH (08:13)
[2019-02-20] MEDS ORDERED: predniSONE 10 MG TABLET PO SCH ×2 (09:00)
[2019-02-20] MEDS ORDERED: FUROSEMIDE 20 MG TAB PO SCH (09:00)
--- NOTE | 2019-02-20 09:19 | Cardiology Progress Note ---
Date of Service February 20, 2019 Assessment & Plan (1) Asthmatic bronchitis with acute exacerbation: Patient with significant reactive airway disease with multiple recent exacerbations, refractory to outpatient management. History and examination are not suggestive of volume overload/decompensated heart failure however volume status and blood pressures will need to be monitored closely given her brittle diastolic heart failure history. Consider IV corticosteroids Patient may require chronic low-dose prednisone Management as per hospitalist. (2) Diastolic heart failure secondary to hypertension: As above, volume status is currently compensated to perhaps mildly hypovolemic Would continue oral diuretics as prescribed for now. (3) Labile hypertension: Long-standing labile hypertension with hypertensive heart disease and brittle diastolic, class 3congestive heart failure. BP mildly elevated, not unexpected given current illness Recommend as needed hydralazine (4) PAF (paroxysmal atrial fibrillation): Past paroxysmal atrial fibrillation. Patient maintaining sinus rhythm by history, examination, electrocardiogram, and telemetry. [id number] Score 7 points Recommend continuation of chronic Coumadin anticoagulation with an INR goal of 2.0 to 3.0 (5) CAD (coronary artery disease): History of mild nonobstructive coronary atherosclerosis by cardiac catheterization 2011. Electrocardiogram without acute changes Troponin negative. Recommend continued medical management. Supervising Physician Co-Signing Physician Notes Patient seen and examined with Dionicio Morrison PA-C. Agree with findings and assessment as above. Still with productive cough, does not examine as volume overloaded. No need for active diuresis at this time. Subjective Patient seen and examined. Chart, medications, and telemetry reviewed. "So, so. This lousy cough won't leave me. I didn't sleep last night, all the dripping stuff. My blood pressure is up this morning." + Fever. + Cough productive of "mostly yellow with just a little bit of green" sputum. + Expiratory wheezing. One episode of quick sharp right sided chest discomfort prior to hospitalization. No symptoms suggestive of angina. No palpitations. No dizziness, near syncope, or syncope. Telemetry: Sinus with sinus arrhythmia in the 60's and 70's. No atrial fibrillation or flutter. Review of Systems Review of Systems: All systems reviewed & are unremarkable except as noted in HPI & below Constitutional: + fever, + sweats, + body aches, + fatigue, + malaise, + weakness, + anorexia and + insomnia Eyes: + itchy eyes Ear, Nose, Mouth, Throat: + nasal congestion, + post nasal drip, + dry mouth and + hoarseness Respiratory: + cough, + chest congestion, + change in sputum, + dyspnea, + dyspnea on exertion, + sputum production and + wheezing Cardiovascular: + dyspnea on exertion and + orthopnea; no palpitations, no lightheadedness, no syncope and no edema Genitourinary: no dysuria Musculoskeletal: + body aches Integumentary: no rash Neurologic: + gait abnormality and + unsteadiness; no falls Endocrine: + fatigue and + flushing Physical Exam Physical Exam: General: A&Ox3. NAD. HEENT: Normal JVD. No HJR. No carotid bruits. Mouth: No thrush. Mucous membranes are dry. Lungs: Diminished. Decreased. Rhonchi, left upper lobe and right lower lobe. Upper anterior expiratory wheezing. Heart: RRR, 60 bpm. Grade I/ systolic murmur at the right upper sternal border. There is no diastolic murmur. There is no S-3 gallop. Abdomen: +BS. Soft. Nontender. Extremities: No edema. + Lymphedematous changes. Chronic varocosities. No cyanosis or clubbing. Neuro: Without focal deficit. Results & Data Vital Signs (Past 12 Hours) Vital Signs Temp Pulse Pulse Resp BP Pulse Ox 02/20/19 07:01 36.7 C 74 20 160/71 H 90 02/20/19 06:03 78 178/85 H 02/20/19 04:01 37.0 C 81 20 169/77 H 95 02/20/19 01:21 79 18 98 02/20/19 00:02 36.8 C 71 18 160/70 H 96 02/19/19 23:53 72 Laboratory Results - last 24 hr 02/19/19 02/19/19 02/19/19 11:10 11:17 11:19 WBC 6.14 RBC 3.89 L Hgb 11.5 L Hct 35.3 L MCV 90.7 MCH 29.6 MCHC 32.6 RDW Std Deviation 54.7 H RDW Coeff of Chrissy 16.7 H Plt Count 143 MPV 10.6 H Immature Gran % (Auto) 0.5 Neut % (Auto) 77.8 Lymph % (Auto) 14.0 [place] % (Auto) 6.5 Eos % (Auto) 0.7 Baso % (Auto) 0.5 Immature Gran # (Auto) 0.03 H Neut # (Auto) 4.78 Lymph # (Auto) 0.86 L [place] # (Auto) 0.40 Eos # (Auto) 0.04 Baso # (Auto) 0.03 PT INR APTT PTT Ratio VBG pH VBG pCO2 VBG pO2 VBG HCO3 VBG O2 Saturation VBG Base Excess Barometric Pressure Sodium Potassium Chloride Carbon Dioxide Anion Gap BUN Creatinine Est Cr Clr Drug Dosing Est GFR ( Amer) Est GFR (Non-Af Amer) BUN/Creatinine Ratio Glucose POC Glucose 96 Lactate Calcium Magnesium Total Bilirubin Direct Bilirubin AST ALT Alkaline Phosphatase Troponin I NT-Pro-B Natriuret Pep Total Protein Albumin Lipase Urine Color Urine Appearance Urine pH Ur Specific [place] Urine Protein Urine Glucose (UA) Urine Ketones Urine Blood Urine Nitrite Urine Bilirubin Urine Urobilinogen Ur Leukocyte Esterase Urine WBC (Auto) Urine RBC (Auto) U Hyaline Cast (Auto) U Epithel Cells (Auto) Urine Bacteria (Auto) Influenza Type A (PCR) Neg for Influ A Influenza Type B (PCR) Neg for Influ B 02/19/19 02/19/19 02/19/19 11:19 11:19 11:19 WBC RBC Hgb Hct MCV MCH MCHC RDW Std Deviation RDW Coeff of Chrissy Plt Count MPV Immature Gran % (Auto) Neut % (Auto) Lymph % (Auto) [place] % (Auto) Eos % (Auto) Baso % (Auto) Immature Gran # (Auto) Neut # (Auto) Lymph # (Auto) [place] # (Auto) Eos # (Auto) Baso # (Auto) PT 18.8 H INR 1.9 H APTT 31.0 PTT Ratio 1.1 VBG pH VBG pCO2 VBG pO2 VBG HCO3 VBG O2 Saturation VBG Base Excess Barometric Pressure Sodium 137 Potassium 3.1 L Chloride 100 Carbon Dioxide 28 Anion Gap 9.0 BUN 29 H Creatinine 1.36 H Est Cr Clr Drug Dosing 25.4 Est GFR ( Amer) 40.5 Est GFR (Non-Af Amer) 34.9 BUN/Creatinine Ratio 21.6 H Glucose 107 H POC Glucose Lactate 0.9 Calcium 9.4 Magnesium 1.4 L Total Bilirubin 0.5 Direct Bilirubin 0.2 AST 17 ALT 12 Alkaline Phosphatase 44 L Troponin I < 0.015 NT-Pro-B Natriuret Pep 1546 Total Protein 6.3 L Albumin 3.1 L Lipase 195 Urine Color Urine Appearance Urine pH Ur Specific [place] Urine Protein Urine Glucose (UA) Urine Ketones Urine Blood Urine Nitrite Urine Bilirubin Urine Urobilinogen Ur Leukocyte Esterase Urine WBC (Auto) Urine RBC (Auto) U Hyaline Cast (Auto) U Epithel Cells (Auto) Urine Bacteria (Auto) Influenza Type A (PCR) Influenza Type B (PCR) 02/19/19 02/19/19 02/20/19 11:19 12:00 06:36 WBC 7.31 RBC 3.91 L Hgb 11.6 L Hct 35.7 L MCV 91.3 MCH 29.7 MCHC 32.5 RDW Std Deviation 55.4 H RDW Coeff of Chrissy 16.7 H Plt Count 149 MPV 10.4 Immature Gran % (Auto) Neut % (Auto) Lymph % (Auto) [place] % (Auto) Eos % (Auto) Baso % (Auto) Immature Gran # (Auto) Neut # (Auto) Lymph # (Auto) [place] # (Auto) Eos # (Auto) Baso # (Auto) PT INR APTT PTT Ratio VBG pH 7.47 H VBG pCO2 35 L VBG pO2 84 VBG HCO3 25 VBG O2 Saturation 86.0 VBG Base Excess 1.4 Barometric Pressure 739.3 Sodium Potassium Chloride Carbon Dioxide Anion Gap BUN Creatinine Est Cr Clr Drug Dosing Est GFR ( Amer) Est GFR (Non-Af Amer) BUN/Creatinine Ratio Glucose POC Glucose Lactate Calcium Magnesium Total Bilirubin Direct Bilirubin AST ALT Alkaline Phosphatase Troponin I NT-Pro-B Natriuret Pep Total Protein Albumin Lipase Urine Color Yellow Urine Appearance Clear Urine pH 5.0 Ur Specific [place] 1.011 Urine Protein Negative Urine Glucose (UA) Negative Urine Ketones Negative Urine Blood Negative Urine Nitrite Negative Urine Bilirubin Negative Urine Urobilinogen Negative Ur Leukocyte Esterase 1+ H Urine WBC (Auto) 5-10 H Urine RBC (Auto) 0-4 U Hyaline Cast (Auto) 1-5 U Epithel Cells (Auto) 10-20 H Urine Bacteria (Auto) Negative Influenza Type A (PCR) Influenza Type B (PCR) 02/20/19 02/20/19 06:36 06:36 WBC RBC Hgb Hct MCV MCH MCHC RDW Std Deviation RDW Coeff of Chrissy Plt Count MPV Immature Gran % (Auto) Neut % (Auto) Lymph % (Auto) [place] % (Auto) Eos % (Auto) Baso % (Auto) Immature Gran # (Auto) Neut # (Auto) Lymph # (Auto) [place] # (Auto) Eos # (Auto) Baso # (Auto) PT 20.6 H INR 2.1 H APTT PTT Ratio VBG pH VBG pCO2 VBG pO2 VBG HCO3 VBG O2 Saturation VBG Base Excess Barometric Pressure Sodium 138 Potassium 4.3 D Chloride 100 Carbon Dioxide 29 Anion Gap 9.0 BUN 30 H Creatinine 1.57 H Est Cr Clr Drug Dosing 21.2 Est GFR ( Amer) 34.0 Est GFR (Non-Af Amer) 29.3 BUN/Creatinine Ratio 19.3 Glucose 116 H POC Glucose Lactate Calcium 9.0 Magnesium 2.1 Total Bilirubin Direct Bilirubin AST ALT Alkaline Phosphatase Troponin I NT-Pro-B Natriuret Pep Total Protein Albumin Lipase Urine Color Urine Appearance Urine pH Ur Specific [place] Urine Protein Urine Glucose (UA) Urine Ketones Urine Blood Urine Nitrite Urine Bilirubin Urine Urobilinogen Ur Leukocyte Esterase Urine WBC (Auto) Urine RBC (Auto) U Hyaline Cast (Auto) U Epithel Cells (Auto) Urine Bacteria (Auto) Influenza Type A (PCR) Influenza Type B (PCR)
--- NOTE | 2019-02-20 11:00 | Pulmonary Consultation ---
Date of Consultation February 20, 2019 Assessment & Plan (1) Dyspnea: I think her symptoms are multifactorial in etiology likely related to persistent gastric reflux, severe postnasal drip, allergic rhinitis and possibly component of mild asthma. I do not think she needs antibiotics at this time as she does not appear to be overtly infected. I do think her sinuses are playing a role along with her postnasal drip. I have ordered for a noncontrast CT scan of her sinuses. She would likely benefit from an ENT consult. I am not certain what inhaler she has been on previously but it appears that she is on montelukast and Nasacort/Astelin nasal sprays. I think she needs to adhere to a very strict nasal and sinus regimen which would include sinus rinses and the previously after mentioned nasal sprays. She needs pulmonary function test as an outpatient. The CT of her chest does not demonstrate any significant intrinsic lung disease at least on an anatomical level. I have stopped her IV Solu-Medrol and switch her to p.o. prednisone. She can be on a 5-day course of 40 mg of prednisone. We will continue to follow the patient along with you. Dyspnea type: dyspnea on exertion Qualified Code(s): R06.09 - Other forms of dyspnea (2) Sinusitis: Sinusitis location: unspecified location Chronicity: subacute Qualified Code(s): J01.90 - Acute sinusitis, unspecified (3) History of postnasal drip: (4) Asthma exacerbation: Asthma severity: mild Asthma persistence: unspecified Qualified Code(s): J45.901 - Unspecified asthma with (acute) exacerbation History of Present Illness Attending Physician: Leisa Fernandes DO History of Present Illness This is an 88-year-old female with a past medical history of obesity, nonobstructive CAD, hypertension and diastolic heart failure who presents to the hospital due to worsening cough and shortness of breath. Patient is a very poor historian, but her daughter is available at bedside to give collateral information. The patient's records were reviewed in the EMR as well. Patient reports that she has been having cough and low-grade fever for the last couple weeks. She notes a lot of postnasal drip symptoms. She describes a dry cough. She uses nasal steroid sprays and inhaler that she is not certain of the name. 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 Her daughter tells me that her asthma diagnosis goes back at least 15 years and that she has been on numerous inhalers. Patient and her daughter say that she wheezes frequently. There were telling me that she is wheezing while I was seeing her, however, I did not hear any appreciable wheezes. Does not sound like she has ever seen ENT. She does note shortness of breath with mild exertion. She denies any chest pain. She denies any swelling in her lower extremities. I do not see any pulmonary function test on her in our system. She has been started on antibiotics and high-dose IV Solu-Medrol by the hospitalist. Is also being seen by cardiology here who do not feel that she is having any ischemic event at this present time. Patient is a lifelong non-smoker. She lives with her daughter. They have 6 dogs at home. Daughter denies the dog sleeps with her mom at home. CT chest with pulmonary embolism protocol was performed here that did not demonstrate any PE. No acute findings are seen. She has been afebrile while in the hospital. WBC has been normal. 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 sulfamethoxazole Allergy Mild RASH Verified 05/23/18 09:39 trimethoprim Allergy Mild RASH Verified 05/23/18 09:39 amlodipine Allergy Unknown Unverified 02/19/19 14:30 amoxicillin Allergy Rash Unverified 02/19/19 14:30 azithromycin Allergy Unknown Unverified 02/19/19 14:30 cefuroxime [From Ceftin] Allergy Diarrhea Unverified 02/19/19 14:30 ipratropium Allergy Unknown Unverified 02/19/19 14:30 Sulfa (Sulfonamide Allergy Hives Unverified 02/19/19 14:30 Antibiotics) Home Medications Home Medications Medication Instructions Recorded Confirmed Type allopurinol 200 mg PO DAILY 02/19/19 02/19/19 History amoxicillin 500 mg PO BID PRN 02/19/19 02/19/19 History arformoterol [Brovana] 15 mcg INHALATION BID PRN 02/19/19 02/19/19 History aspirin [Aspirin Low Dose] 81 mg PO DAILY 02/19/19 02/19/19 History atorvastatin 40 mg PO DAILY@1800 02/19/19 02/19/19 History azelastine 1 spray INTRANASAL BID 02/19/19 02/19/19 History benzonatate 100 mg PO TID PRN 02/19/19 02/19/19 History budesonide 0.5 mg INHALATION BID 02/19/19 02/19/19 History calcitonin (salmon) 1 spray INTRANASAL DAILY 02/19/19 02/19/19 History calcium carbonate 1,200 mg PO DAILY@1800 02/19/19 02/19/19 History carvedilol [Coreg] 6.25 mg PO DAILY@1800 02/19/19 02/19/19 History carvedilol [Coreg] 12.5 mg PO BID 02/19/19 02/19/19 History cholecalciferol (vitamin D3) 2,000 unit PO DAILY 02/19/19 02/19/19 History [Vitamin D3] docusate sodium 500 mg PO BID 02/19/19 02/19/19 History escitalopram oxalate [Lexapro] 5 mg PO DAILY 02/19/19 02/19/19 History fexofenadine 180 mg PO DAILY 02/19/19 02/19/19 History folic acid 1 mg PO DAILY 02/19/19 02/19/19 History furosemide 40 mg PO SUTUTHFR 02/19/19 02/19/19 History furosemide 60 mg PO MOWESA 02/19/19 02/19/19 History gabapentin 100 mg PO HS@2200 02/19/19 02/19/19 History hydralazine 10 mg PO BID PRN 02/19/19 02/19/19 History iron-vit B zzfw-X-vah-liver ex 1 tab PO MOWEFR 02/19/19 02/19/19 History isosorbide mononitrate 120 mg PO HS@2200 02/19/19 02/19/19 History levalbuterol HCl [Xopenex] 1.25 mg INHALATION TID 02/19/19 02/19/19 History levothyroxine 150 mcg PO DAILY 02/19/19 02/19/19 History losartan 50 mg PO HS@2200 02/19/19 02/19/19 History montelukast 10 mg PO DAILY@1800 02/19/19 02/19/19 History nitroglycerin [Nitrostat] 0.4 mg BUCCAL DAILY PRN 02/19/19 02/19/19 History nystatin 5 ml PO BID 02/19/19 02/19/19 History pantoprazole [Protonix] 40 mg PO BID 02/19/19 02/19/19 History potassium chloride 10 meq PO MOTUWETHFR 02/19/19 02/19/19 History prednisone 10 mg PO DIRECTED PRN 02/19/19 02/19/19 History ranitidine HCl 150 mg PO DAILY 02/19/19 02/19/19 History ranitidine HCl 300 mg PO DAILY@1800 02/19/19 02/19/19 History sodium chloride [Saline Nasal] 2 spray INTRANASAL QID PRN 02/19/19 02/19/19 History spironolactone 12.5 mg PO DAILY@0900 02/19/19 02/19/19 History sucralfate [Carafate] 1 g PO QID PRN 02/19/19 02/19/19 History tamoxifen 20 mg PO DAILY 02/19/19 02/19/19 History trazodone 25 mg PO HS@2200 02/19/19 02/19/19 History triamcinolone acetonide [Nasacort] 1 spray INTRANASAL BID 02/19/19 02/19/19 History warfarin 2.5 mg PO SUTUWEFRSA 02/19/19 02/19/19 History warfarin 3.75 mg PO MOTH 02/19/19 02/19/19 History Patient History Medical History Dyslipidemia (Chronic) IBS (irritable bowel syndrome) (Chronic) Transient ischemic attack (Resolved) 1983 - No deficits - right eye droop Asthma, moderate persistent (Chronic) Chronic diastolic CHF (congestive heart failure) (Chronic) History of breast cancer (Chronic) Anxiety (Chronic) CKD (chronic kidney disease), stage III (Chronic) H/O total thyroidectomy (Chronic) Hysterectomy (Chronic 02/22/13) GERD (gastroesophageal reflux disease) (Chronic) Heart disease (Chronic) "nonobstructive disease per cath 2011" Osteoporosis (Chronic 02/22/13) Labile hypertension (Chronic) Hypothyroidism (acquired) (Chronic) "s/p thyroidectomy and radioiodine therapy for cancer treatment" PAF (paroxysmal atrial fibrillation) (Chronic) Anticoagulated on Coumadin (Chronic) Gout (Chronic) 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 Father , Passed age 50 of [place] No problems noted. Brother Lung fibrosis Brother , Passed age 63 of allergic reaction to antibiotics No problems noted. Sister , Passed age 83 of "electrolyte disturbances" DCIS (ductal carcinoma in situ) Sister , Passed age 84 from post surgical complications No problems noted. Sister No problems noted. Daughter No problems noted. Daughter No problems noted. Son No problems noted. 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 Obese. Eyes: Injected sclera bilaterally. She is frequently rubbing her eyes ENMT: external ear and nose normal, oropharynx normal Neck: normal visual inspection Respiratory: normal respiratory effort, lungs clear to auscultation Cardiovascular: RRR, no murmur, no edema Gastrointestinal (Abdomen): normal bowel sounds, soft, nontender, no hepatosplenomegaly Musculoskeletal: no cyanosis or clubbing, extremities motor strength 5/5 Skin: no rashes, warm and dry Neurologic: PERRL, EOMI, accommodation nl, no face palsy, no dysarthria Psychiatric: A+Ox3, euthymic affect Results & Data Vital Signs (Past 12 Hours) Vital Signs Temp Pulse Pulse Resp BP Pulse Ox 02/20/19 09:52 78 02/20/19 07:01 98.1 F 74 20 160/71 H 90 02/20/19 06:03 78 178/85 H 02/20/19 04:01 98.6 F 81 20 169/77 H 95 02/20/19 01:21 79 18 98 02/20/19 00:02 98.2 F 71 18 160/70 H 96 02/19/19 23:53 72 CBC, BMP and CT chest were personally reviewed. PG Care Time/CCT Total # of Minutes Spent Total Time Spent with Patient: Total time spent is greater than 50% in coordination of care (as documented) at patient's floor/unit and/or counseling patient:
[2019-02-20] MEDS: POTASSIUM CHLORIDE 10 MEQ TABCR PO SCH (11:47)
--- NOTE | 2019-02-20 12:55 | CT Scan Report ---
CT sinus wo con CLINICAL HISTORY: sinusitis COMPARISON STUDY: None. TECHNIQUE: CT scan of the paranasal sinuses was performed in the axial plane. Coronal reconstructed images were obtained and reviewed. A dose lowering technique was utilized adhering to the principles of ALARA. CT DOSE: 628.67 mGy.cm FINDINGS: No orbital lesions are visualized. There is no hydrocephalus. There is bilateral maxillary sinus muco silvestre thickening. No air-fluid levels are visualized. There is mild mucosal thickening within the sphen oid sinus with trace fluid. There is opacification of several ethmoid air cells. The mastoid air cells appear symmetrically aerated. The middle ear cavities appear well aerated. Both ostiomeatal units appear patent with bilateral infundibular narrowing. The ethmoid notches are protected on the left and unprotected on the right. The left olfactory groove measures 9 mm. The right olfactory groove measures 6 mm. IMPRESSION: 1. Maxillary ethmoid and sphenoid sinus mucosal thickening with trace sphenoid sinus fluid levels 2. The ostiomeatal units are patent bilaterally with mild bilateral infundibular narrowing Electronically signed by: Michael Hopper M.D. 02/20/2019 12:53 PM
--- NOTE | 2019-02-20 15:09 | Hospitalist Progress Note ---
Date of Service February 20, 2019 Assessment & Plan (1) Dyspnea: Likely multifactorial according to pulmonology. Etiologies include but not limited to persistent gastric reflux, severe postnasal drip, allergic rhinitis, and a possible component of asthma. CT sinuses support sinusitis with uncertain acuity. With current symptoms, will continue current course of Levaquin. Solumedrol switched to prednisone for a short course. PFTs and ENT follow-up recommended as outpatient when she is improved. Nasal rinses and continued use of nasal spray also recommended. She is improved and off oxygen today. (2) Sinusitis: Cont current course of levaquin. ENT follow-up as outpatient. (3) Asthma exacerbation: Improved, solumedrol switched to prednisone. Cont short course. Cont neb treatments because she takes these religiously at home. Also on pulmicort which has been held. (4) Chronic diastolic CHF (congestive heart failure): -Patient with history of brittle diastolic CHF with frequent exacerbations -Currently examines to be euvolemic -will continue current diuretic regimen, minor bump in creat. Trend BMP in am. -Cardiology consult per family request (5) Hypomagnesemia: Resolved, likely secondary to her protonix. Placed her on Magneisum supplementation. Will need to be followed as outpatient. (6) History of breast cancer: -S/P lumpectomy -Currently on tamoxifen -CTA chest noted 1.2 cm subareolar nodule in the left breast; patient had mammogram on 02/11/2019 that showed avascular superficial hypoechoic mass with well-defined margins measuring 11 x 6 x 11 mm -follow-up diagnostic mammogram in 6 months recommended -Patient follows closely with Dr. Angelica Pavon (7) CAD (coronary artery disease): -Nonobstructive -Appears stable -Continue aspirin, Lipitor, Losartan, Coreg, Imdur (8) Labile hypertension: -BP currently controlled -Continue carvedilol, isosorbide, losartan, diuretics (9) PAF (paroxysmal atrial fibrillation): -Currently in NSR -Rate controlled on beta-ced -Anticoagulated on Coumadin (10) Hypothyroidism (acquired): -Continue levothyroxine (11) CKD (chronic kidney disease), stage III: around baseline, avoid nephrotoxic agents when able (12) DVT prophylaxis: coumadin full code dispo-expect to retunr home when medically stable, will aske PT/OT to evaluate Leisa FernandesDO [facility] Hospitalist Subjective improved today but reports fatigue and feeling washed out performed well on PT per her standards tolerating PO feels she is breathing better today afebrile overnight evaluated by pulm and cards Review of Systems Review of Systems: All systems reviewed & are unremarkable except as noted in HPI & below Physical Exam Physical Exam: CONSTITUTIONAL: obese, vitals as above, generally well- appearing EYES: normal conjunctivae, no scleral icterus ENT: MMM RESPIRATORY: clear to auscultation bilaterally, scattered wheezes at the lung bases, improved from yesterday, normal respiratory effort CARDIOVASCULAR: regular rate and rhythm, S1 and 2 heard without murmurs, gallops or rubs, no JVD, no peripheral edema GASTROINTESTINAL: normal bowel sounds, soft, nontender, nondistended MUSCULOSKELETAL: strength 5/5 throughout, head is normocephalic and atraumatic SKIN: warm and dry NEUROLOGIC: CN 2-12 grossly intact, normal cognition, normal speech, no gross neurologic deficits. PSYCHIATRIC: alert cooperative and oriented to person, place and time. Results & Data Vital Signs (Past 12 Hours) Vital Signs Temp Pulse Pulse Resp BP Pulse Ox 02/20/19 15:05 67 02/20/19 13:25 79 18 94 02/20/19 11:31 36.7 C 65 18 131/72 90 02/20/19 09:52 78 02/20/19 07:01 36.7 C 74 20 160/71 H 90 02/20/19 06:03 78 178/85 H 02/20/19 04:01 37.0 C 81 20 169/77 H 95 Laboratory Results Short CBC 02/20/19 Range/Units 06:36 WBC 7.31 (4.8-10.8) K/uL Hgb 11.6 L (12.0-16.0) g/dL Hct 35.7 L (37-47) % Plt Count 149 (130-400) K/uL BMP 02/20/19 06:36 Sodium 138 Potassium 4.3 D Chloride 100 Carbon Dioxide 29 BUN 30 H Creatinine 1.57 H Glucose 116 H Calcium 9.0 Medications Administered Current Inpatient Medications Acetaminophen (Tylenol) 650 mg PO Q4H PRN PRN Reason: pain/fever Stop: 03/21/19 16:26 Allopurinol (Zyloprim) 200 mg PO DAILY CHETAN Stop: 03/22/19 08:59 Last Admin: 02/20/19 08:07 Dose: 200 mg Documented by: Aspirin (Ecotrin Ectab) 81 mg PO DAILY CHETAN Stop: 03/22/19 08:59 Last Admin: 02/20/19 08:08 Dose: 81 mg Documented by: Atorvastatin Calcium (Lipitor) 40 mg PO DAILY@1800 CHETAN Stop: 03/21/19 17:59 Last Admin: 02/19/19 17:47 Dose: 40 mg Documented by: Benzonatate (Tessalon Perle) 100 mg PO TID PRN PRN Reason: Cough Stop: 03/21/19 19:46 Last Admin: 02/20/19 08:11 Dose: 100 mg Documented by: Calcitonin [place] (Fortical) 1 sprays NA DAILY CHETAN Stop: 03/22/19 08:59 Last Admin: 02/20/19 08:13 Dose: 1 sprays Documented by: Carvedilol (Coreg) 6.25 mg PO DAILY@1800 [facility] Stop: 03/21/19 17:59 Last Admin: 02/19/19 17:45 Dose: 6.25 mg Documented by: Carvedilol (Coreg) 12.5 mg PO DAILY@0600,1800 [facility] Stop: 03/21/19 17:59 Last Admin: 02/20/19 06:04 Dose: 12.5 mg Documented by: Escitalopram Oxalate (Lexapro Tab) 5 mg PO DAILY CHETAN Stop: 03/22/19 08:59 Last Admin: 02/20/19 08:07 Dose: 5 mg Documented by: Fexofenadine HCl (Loraine) 180 mg PO DAILY CHETAN Stop: 03/22/19 08:59 Last Admin: 02/20/19 08:07 Dose: 180 mg Documented by: Folic Acid (Folvite) 1 mg PO DAILY [facility] Stop: 03/22/19 08:59 Last Admin: 02/20/19 08:11 Dose: 1 mg Documented by: Furosemide (Lasix) 40 mg PO SuTuThFr@0900 [facility] Stop: 03/23/19 08:59 Furosemide (Lasix) 60 mg PO MoWeSa@0900 [facility] Stop: 03/22/19 08:59 Last Admin: 02/20/19 08:06 Dose: 60 mg Documented by: Gabapentin (Neurontin) 100 mg PO HS@2200 [facility] Stop: 03/21/19 21:59 Last Admin: 02/19/19 21:23 Dose: 100 mg Documented by: Levofloxacin/Dextrose (Levaquin/D5w) 250 mg in 50 mls @ 50 mls/hr IV Q24H [facility] Stop: 02/26/19 16:29 Isosorbide Mononitrate (Imdur Extended Rel) 120 mg PO HS@2200 [facility] Stop: 03/21/19 21:59 Last Admin: 02/19/19 21:22 Dose: 120 mg Documented by: Levalbuterol HCl (Xopenex 1.25mg/3ml Neb) 1.25 mg INH Q6R [facility] Stop: 03/21/19 17:59 Last Admin: 02/20/19 13:24 Dose: 1.25 mg Documented by: Levothyroxine Sodium (Synthroid) 150 mcg PO DAILYBB [facility] Stop: 03/22/19 06:29 Last Admin: 02/20/19 06:04 Dose: 150 mcg Documented by: Losartan Potassium (Cozaar) 50 mg PO HS@2199 [facility] Stop: 03/21/19 21:59 Last Admin: 02/19/19 21:21 Dose: 50 mg Documented by: Magnesium Oxide (Mag-Ox) 400 mg PO QAM [facility] Stop: 03/22/19 08:59 Last Admin: 02/20/19 08:12 Dose: 400 mg Documented by: Montelukast Sodium (Singulair) 10 mg PO DAILY@1800 [facility] Stop: 03/21/19 17:59 Last Admin: 02/19/19 17:45 Dose: 10 mg Documented by: Pantoprazole Sodium (Protonix) 40 mg PO BID [facility] Stop: 03/21/19 20:59 Last Admin: 02/20/19 08:10 Dose: 40 mg Documented by: Potassium Chloride (Klor-Con M10) 10 meq PO MoTuWeThFr@0900 [facility] Stop: 03/22/19 11:29 Last Admin: 02/20/19 11:47 Dose: 10 meq Documented by: Prednisone (Prednisone) 40 mg PO DAILY [facility] Stop: 03/23/19 08:59 Ranitidine HCl (Zantac) 150 mg PO DAILY [facility] Stop: 03/22/19 08:59 Last Admin: 02/20/19 08:08 Dose: 150 mg Documented by: Ranitidine HCl (Zantac) 300 mg PO DAILY@1800 [facility] Stop: 03/21/19 17:59 Last Admin: 02/19/19 17:46 Dose: 300 mg Documented by: Spironolactone (Aldactone) 12.5 mg PO DAILY@0900 [facility] Stop: 03/22/19 08:59 Last Admin: 02/20/19 08:09 Dose: 12.5 mg Documented by: Tamoxifen Citrate (Nolvadex) 20 mg PO DAILY [facility] Stop: 03/22/19 08:59 Last Admin: 02/20/19 08:08 Dose: 20 mg Documented by: Trazodone HCl (Desyrel) 25 mg PO HS@2200 [facility] Stop: 03/21/19 21:59 Last Admin: 02/19/19 21:21 Dose: 25 mg Documented by: Triamcinolone Acetonide (Nasacort) 1 sprays NA BID [facility] Stop: 03/21/19 20:59 Last Admin: 02/20/19 08:09 Dose: 1 sprays Documented by: Warfarin Sodium (Coumadin) 2.5 mg PO SuTuWeFrSa@1600 [facility] Stop: 03/21/19 16:26 Last Admin: 02/19/19 17:48 Dose: 2.5 mg Documented by: Warfarin Sodium (Coumadin) 3.75 mg PO MoTh@1600 [facility] Stop: 03/23/19 15:59 (1) Asthma exacerbation Asthma persistence: unspecified Asthma severity: mild Qualified Code(s): J45.901 - Unspecified asthma with (acute) exacerbation (2) Dyspnea Dyspnea type: dyspnea on exertion Qualified Code(s): R06.09 - Other forms of dyspnea (3) Sinusitis Chronicity: subacute Sinusitis location: unspecified location Qualified Code(s): J01.90 - Acute sinusitis, unspecified
[2019-02-20] MEDS: WARFARIN SOD 2.5 MG TAB PO SCH (16:19)
[2019-02-20] MEDS ORDERED: LEVOFLOXACIN/D5W 250 MG/50 ML BAG IV SCH (16:30)
[2019-02-20] MEDS: ATORVASTATIN 40 MG TAB PO SCH (17:51)
[2019-02-20] MEDS: carvediloL 6.25 MG TAB PO SCH (17:52)
[2019-02-20] MEDS: MONTELUKAST SODIUM 10 MG TABLET PO SCH (17:53)
[2019-02-20] MEDS: TRAZODONE HCL 50 MG TAB PO SCH (20:25)
[2019-02-20] MEDS: GABAPENTIN 100 MG CAP PO SCH (20:26)
[2019-02-20] MEDS: ISOSORBIDE MONO EXTENDED REL 60 MG TABCR PO SCH (20:27)
[2019-02-20] MEDS: LOSARTAN POTASSIUM 50 MG TAB PO SCH (20:27)
[2019-02-21] MEDS: LEVALBUTEROL HCL 1.25 MG/3 ML NEB INH SCH ×4 (00:35→19:51)
[2019-02-21] MEDS: carvediloL 12.5 MG TAB PO SCH ×2 (06:08→17:45)
[2019-02-21] MEDS: LEVOTHYROXINE SODIUM 150 MCG TABLET PO SCH (06:08)
[2019-02-21 06:21] LABS: Hematocrit (blood only) 34.2 % (37-47); Hemoglobin 11.1 g/dL (12.0-16.0); Mean Corpuscular Hemoglobin 29.5 pg (25-34); Mean Corpuscular Hgb Conc 32.5 g/dL (32-36); Mean Platelet Volume 10.4 fL (7.4-10.4); Platelet Count 158 K/uL (130-400); RDW Coefficient of Variation 16.6 % (11.5-14.5); RDW Standard Deviation 55.2 fL (36.4-46.3); Red Blood Count 3.76 M/uL (4.2-5.4); White Blood Count 7.24 K/uL (4.8-10.8)
[2019-02-21 06:41] LABS: INR 2.4 (0.9-1.1); Prothrombin Time 23.5 Seconds (9.0-12.0)
[2019-02-21 06:54] LABS: BUN Creatinine Ratio 20.5 (10-20); Calcium 8.7 mg/dl (8.5-10.1); Creatinine Clr Calc Pharmacy 17.9 ml/min; Est GFR (African American) 27.7; Est GFR (Non-African American) 23.9; Potassium 3.6 mmol/L (3.5-5.1)
[2019-02-21] MEDS: FEXOFENADINE HCL 180 MG TAB PO SCH (07:52)
[2019-02-21] MEDS: ASPIRIN 81 MG ECTAB PO SCH (07:52)
[2019-02-21] MEDS: SPIRONOLACTONE 25 MG TAB PO SCH (07:52)
[2019-02-21] MEDS: predniSONE 50 MG TAB PO SCH (07:53)
[2019-02-21] MEDS: POTASSIUM CHLORIDE 10 MEQ TABCR PO SCH (07:53)
[2019-02-21] MEDS: ESCITALOPRAM OXALATE 10 MG TAB PO SCH (07:53)
[2019-02-21] MEDS: MAGNESIUM OXIDE 400 MG TAB PO SCH (07:53)
[2019-02-21] MEDS: CALCITONIN SALMON NA 200 IU/AC 3.7 ML BTL SCH (07:53)
[2019-02-21] MEDS: FOLIC ACID 1 MG TAB PO SCH (07:53)
[2019-02-21] MEDS: allopurinoL 100 MG TAB PO SCH (07:54)
[2019-02-21] MEDS: TRIAMCINOLONE ACET NASAL SPRAY 10.8ML BTL SCH ×2 (07:54→20:06)
[2019-02-21] MEDS: PANTOprazole 40 MG TAB PO SCH ×2 (07:54→20:11)
[2019-02-21] MEDS: TAMOXIFEN CITRATE 10 MG TABLET PO SCH (07:54)
[2019-02-21] MEDS ORDERED: FUROSEMIDE 40 MG TAB PO SCH (09:00)
--- NOTE | 2019-02-21 09:50 | Cardiology Progress Note ---
Date of Service February 21, 2019 Assessment & Plan (1) Asthmatic bronchitis with acute exacerbation: Patient with significant reactive airway disease with multiple recent exacerbations, refractory to outpatient management. Scattered rhonchi and diffuse anterior expiratory wheezing noted on examination today Management as per hospitalist. (2) Diastolic heart failure secondary to hypertension: Brittle diastolic heart failure history. History and examination today reveal mild hypovolemia Hold oral diuretics today Increase free water intake encouraged. (3) Labile hypertension: Long-standing labile hypertension with hypertensive heart disease and brittle diastolic, class 3congestive heart failure. BP improved. Follow As needed hydralazine (4) PAF (paroxysmal atrial fibrillation): Past paroxysmal atrial fibrillation. Patient maintaining sinus rhythm by history and examination [id number] Score 7 points Recommend continuation of chronic Coumadin anticoagulation with an INR goal of 2.0 to 3.0 INR 2.4 today (02/21/2019) (5) CAD (coronary artery disease): History of mild nonobstructive coronary atherosclerosis by cardiac catheterization 2011. Electrocardiogram without acute changes Troponin negative. Recommend continued medical management. Supervising Physician Co-Signing Physician Notes Patient seen and examined with Dionicio Morrison PA-C. Agree with findings and assessment as above. Still with nonproductive cough. No active cardiac pathophysiology. No cardiac testing necessary. Subjective Patient seen and examined. Chart reviewed. No longer monitored on telemetry. "I feel a little better. I still have a bad cough." Difficult to expectorate. No chest pain. No palpitations. Stable dyspnea. No PND. No edema. Weight is down. Review of Systems Review of Systems: All systems reviewed & are unremarkable except as noted in HPI & below Physical Exam Physical Exam: General: A&Ox3. NAD. HEENT: Normal JVD. No HJR. No carotid bruits. Mouth: No overt thrush. Mucous membranes are dry. Lungs: Diminished. Decreased. Scattered rhonchi. Bilateral anterior expiratory wheezing. Heart: RRR, 60 bpm. Grade I/ systolic murmur at the right upper sternal border. There is no diastolic murmur. Abdomen: +BS. Soft. Nontender. Extremities: No edema. + Lymphedematous changes. Chronic varocosities. No cyanosis or clubbing. Neuro: Without focal deficit. Results & Data Vital Signs (Past 12 Hours) Vital Signs Temp Pulse Resp BP Pulse Ox 02/21/19 07:07 75 18 91 02/21/19 07:00 36.8 C 62 18 119/72 90 02/21/19 06:06 64 131/74 02/21/19 00:38 77 14 85 L 02/20/19 23:25 36.7 C 71 20 131/81 90 Laboratory Results - last 24 hr 02/21/19 02/21/19 02/21/19 05:56 05:56 05:56 WBC 7.24 RBC 3.76 L Hgb 11.1 L Hct 34.2 L MCV 91.0 MCH 29.5 MCHC 32.5 RDW Std Deviation 55.2 H RDW Coeff of Chrissy 16.6 H Plt Count 158 MPV 10.4 PT 23.5 H INR 2.4 H Sodium 138 Potassium 3.6 D Chloride 100 Carbon Dioxide 30 Anion Gap 8.0 BUN 38 H Creatinine 1.86 H Est Cr Clr Drug Dosing 17.9 Est GFR ( Amer) 27.7 Est GFR (Non-Af Amer) 23.9 BUN/Creatinine Ratio 20.5 H Glucose 81 Calcium 8.7
--- NOTE | 2019-02-21 11:25 | Pulmonology Progress Note ---
Date of Service February 21, 2019 Assessment & Plan (1) Non-productive cough: CT sinus reviewed which reveals the maxillary ethmoid and sphenoid sinus mucosal thickening with trace sphenoid sinus fluid levels. The ostial medial units are patent bilaterally with mild bilateral and mandibular narrowing. I also reviewed the patient's pulmonary records from [facility]. She was seen by Goran Roberts on 11/06/2018. His assessment at that time was moderate persistent asthma without complication. He noted that she does not have an asthma phenotype that would allow for biologic therapy given her past eosinophil and IgE levels. He noted a trial of inhaled anticholinergic therapy in combination with her inhaled corticosteroid and leukotriene inhibitor. He also noted other contributing factors to her symptoms being upper airway cough syndrome, GERD and chronic diastolic heart failure. She was prescribed Atrovent nebs at that time. The daughter states that she had an asthma attack secondary to Atrovent nebs and these are no longer being utilized. I think that much of her symptoms are related to underlying significant sinusitis and upper airway cough syndrome. I think her asthma is playing a much less role in her symptoms. I question whether she has asthma at all. She certainly has allergic rhinitis and sinusitis. Ideally she should be on a first generation antihistamine and decongestant, however, due to her age and her past experience with Benadryl I think the risks outweigh the benefits (hallucination and agitation). I think she needs to follow closely with ear nose and throat. Think she needs to perform fluticasone nasal sprays twice a day along with Astelin nasal sprays twice a day. She needs to perform saline rinses 4 times a day. This needs to happen for at least 3 to 4 weeks. She can also continue with a second-generation antihistamine. I discussed with her daughter extensively regarding her diagnosis and her symptoms. She is currently on Symbicort and budesonide nebulized 4 times a day. She uses Symbicort twice a day. She also uses Xopenex inhalers/nebulizers. We discussed minimizing her inhaler/nebulizer regimen to simply budesonide/Pulmicort nebulizers twice a day. Likely due to her cognitive deficits and poor technique, I think that inhalers would not be a best option in this patient. Additionally, she may have an added benefit of the budesonide being absorbed in her sinus tract which may help with her underlying sinusitis. I do not think she needs a prolonged steroid course and she is at significant risk of morbidity related to repeated and prolonged steroids. She already has underlying osteoporosis. Certainly, in patients who have persistent severe asthma, low-dose steroids have been used in the past. However, given that she is 88 years old and already has osteoporosis among other things, I think the risks outweigh the benefits of a prolonged steroid course at this time. It appears that she has periodic hypoxemia at night which may be untreated sleep apnea. She should undergo a sleep study as an outpatient. Daughter is also concerned that she has hypoxemia when she walks at times. I think the patient is severely deconditioned and may have some degree of obesity hypoventilation which is causing occasional hypoxemia. Again, her symptoms are multifactorial related to her diastolic heart failure, deconditioning, obesity and perhaps a mild degree of asthma. She can follow-up in our pulmonary clinic in 3 to 4 weeks with a full pulmonary function test. I think she is safe to be discharged. Greater than 50% of the time was spent [id number] counseling the patient and the patient's daughter. All their questions were answered to their satisfaction. (2) Dyspnea: Dyspnea type: dyspnea on exertion Qualified Code(s): R06.09 - Other forms of dyspnea (3) Sinusitis: Sinusitis location: unspecified location Chronicity: subacute Qualified Code(s): J01.90 - Acute sinusitis, unspecified (4) History of postnasal drip: (5) Asthma exacerbation: Asthma severity: mild Asthma persistence: unspecified Qualified Code(s): J45.901 - Unspecified asthma with (acute) exacerbation Subjective Patient seen today. Still has dry cough. Worse when laying flat. Slept better last night. No chest pain. Mild MONTELONGO. No fevers overnight. Physical Exam ENMT: Inflammed posterior oropharynx. Neck: normal visual inspection Respiratory: normal respiratory effort, lungs clear to auscultation Cardiovascular: RRR, no murmur, no edema Gastrointestinal (Abdomen): normal bowel sounds, soft, nontender, no hepatosplenomegaly Musculoskeletal: no cyanosis or clubbing, extremities motor strength 5/5 Skin: no rashes, warm and dry Neurologic: PERRL, EOMI, accommodation nl, no face palsy, no dysarthria Psychiatric: A+Ox3, euthymic affect Results & Data Vital Signs (Past 12 Hours) Vital Signs Temp Pulse Resp BP Pulse Ox 02/21/19 07:07 75 18 91 02/21/19 07:00 98.2 F 62 18 119/72 90 02/21/19 06:06 64 131/74 02/21/19 00:38 77 14 85 L 02/20/19 23:25 98.1 F 71 20 131/81 90 PG Care Time/CCT Total # of Minutes Spent Total Time Spent with Patient: Total time spent is greater than 50% in coordination of care (as documented) at patient's floor/unit and/or counseling patient:
--- NOTE | 2019-02-21 15:06 | Hospitalist Progress Note ---
Date of Service February 21, 2019 Assessment & Plan (1) Dyspnea: Likely multifactorial according to pulmonology. Etiologies include but not limited to persistent gastric reflux, severe postnasal drip, allergic rhinitis, and a possible component of asthma. CT sinuses support sinusitis. Improved on Levaquin and Prednisone so will cont both for short course. PFTs and ENT follow-up recommended as outpatient when she is improved. Nasal rinses and continued use of nasal spray also recommended. Astelin not on formulary but will cont nasal steroid for now. Noted decrease in nocturnal oxygen saturation two nights consecutively. Will perform an overnight oximetry test to determine if nocturnal oxygen is needed. (2) Sinusitis: Cont current course of levaquin. Nasal rinses instituted today. Cont Nasocort, but Astelin not on formulary. Will have daughter bring her medication from home. ENT follow-up as outpatient. (3) CARLO (acute kidney injury): In setting of CKD Stage III. Likely related to contrast administration on admission and recent increased Lasix use. Encouraged oral hydration and hold Lasix and Losartan for now. Trend BMP in am. (4) Asthma exacerbation: Improved, wheezing still present. Cont short course prednisone per pulm. Cont neb treatments because she takes these religiously at home. Also on pulmicort nebs which has been held while she is on systemic steroids. (5) Chronic diastolic CHF (congestive heart failure): -Patient with history of brittle diastolic CHF with frequent exacerbations -Currently examines to be euvolemic -holding diuretic in setting of CARLO and recent contrast administration. Trend BMP in am. (6) Hypomagnesemia: Resolved, likely secondary to her protonix. Placed her on Magneisum supplementation. Will need to be followed as outpatient. (7) History of breast cancer: -S/P lumpectomy -Currently on tamoxifen -CTA chest noted 1.2 cm subareolar nodule in the left breast; patient had mammogram on 02/11/2019 that showed avascular superficial hypoechoic mass with we ll-defined margins measuring 11 x 6 x 11 mm -follow-up diagnostic mammogram in 6 months recommended -Patient follows closely with Dr. Angelica Pavon (8) CAD (coronary artery disease): -Nonobstructive -Appears stable -Continue aspirin, Lipitor, Coreg, Imdur, losartan held in setting of CARLO. BP at goal. (9) Labile hypertension: -BP currently controlled -Continue carvedilol, isosorbide Losartan and lasix held as above. (10) PAF (paroxysmal atrial fibrillation): -Currently in NSR -Rate controlled on beta-ced -Anticoagulated on Coumadin (11) Hypothyroidism (acquired): -Continue levothyroxine (12) DVT prophylaxis: coumadin full code dispo-expect to return home when medically stable. Will need for PT/OT services at discharge. [facility] Hospital[facility] Results & Data Vital Signs (Past 12 Hours) Vital Signs Temp Pulse Resp BP Pulse Ox 02/21/19 14:56 36.7 C 64 18 112/63 93 02/21/19 13:29 85 18 93 02/21/19 07:07 75 18 91 02/21/19 07:00 36.8 C 62 18 119/72 90 02/21/19 06:06 64 131/74 Laboratory Results Short CBC 02/21/19 Range/Units 05:56 WBC 7.24 (4.8-10.8) K/uL Hgb 11.1 L (12.0-16.0) g/dL Hct 34.2 L (37-47) % Plt Count 158 (130-400) K/uL BMP 02/21/19 05:56 Sodium 138 Potassium 3.6 D Chloride 100 Carbon Dioxide 30 BUN 38 H Creatinine 1.86 H Glucose 81 Calcium 8.7 Medications Administered Current Inpatient Medications Acetaminophen (Tylenol) 650 mg PO Q4H PRN PRN Reason: pain/fever Stop: 03/21/19 16:26 Allopurinol (Zyloprim) 200 mg PO DAILY [facility] Stop: 03/22/19 08:59 Last Admin: 02/21/19 07:54 Dose: 200 mg Documented by: Aspirin (Ecotrin Ectab) 81 mg PO DAILY [facility] Stop: 03/22/19 08:59 Last Admin: 02/21/19 07:52 Dose: 81 mg Documented by: Atorvastatin Calcium (Lipitor) 40 mg PO DAILY@1800 [facility] Stop: 03/21/19 17:59 Last Admin: 02/20/19 17:51 Dose: 40 mg Documented by: Benzonatate (Tessalon Perle) 100 mg PO TID PRN PRN Reason: Cough Stop: 03/21/19 19:46 Last Admin: 02/20/19 20:01 Dose: 100 mg Documented by: Calcitonin [place] (Fortical) 1 sprays NA DAILY [facility] Stop: 03/22/19 08:59 Last Admin: 02/21/19 07:53 Dose: 1 sprays Documented by: Carvedilol (Coreg) 6.25 mg PO DAILY@1800 [facility] Stop: 03/21/19 17:59 Last Admin: 02/20/19 17:52 Dose: 6.25 mg Documented by: Carvedilol (Coreg) 12.5 mg PO DAILY@0600,1800 [facility] Stop: 03/21/19 17:59 Last Admin: 02/21/19 06:08 Dose: 12.5 mg Documented by: Escitalopram Oxalate (Lexapro Tab) 5 mg PO DAILY [facility] Stop: 03/22/19 08:59 Last Admin: 02/21/19 07:53 Dose: 5 mg Documented by: Fexofenadine HCl (Loraine) 180 mg PO DAILY [facility] Stop: 03/22/19 08:59 Last Admin: 02/21/19 07:52 Dose: 180 mg Documented by: Folic Acid (Folvite) 1 mg PO DAILY [facility] Stop: 03/22/19 08:59 Last Admin: 02/21/19 07:53 Dose: 1 mg Documented by: Furosemide (Lasix) 40 mg PO SuTuThFr@09 [facility] Stop: 03/23/19 08:59 Last Admin: 02/21/19 07:53 Dose: 40 mg Documented by: Furosemide (Lasix) 60 mg PO MoWeSa@0900 [facility] Stop: 03/22/19 08:59 Last Admin: 02/20/19 08:06 Dose: 60 mg Documented by: Gabapentin (Neurontin) 100 mg PO HS@2199 [facility] Stop: 03/21/19 21:59 Last Admin: 02/20/19 20:26 Dose: 100 mg Documented by: Isosorbide Mononitrate (Imdur Extended Rel) 120 mg PO HS@2199 [facility] Stop: 03/21/19 21:59 Last Admin: 02/20/19 20:27 Dose: 120 mg Documented by: Levalbuterol HCl (Xopenex 1.25mg/3ml Neb) 1.25 mg INH Q6R [facility] Stop: 03/21/19 17:59 Last Admin: 02/21/19 13:27 Dose: 1.25 mg Documented by: Levofloxacin (Levaquin) 250 mg PO DAILY@1600 [facility]; Protocol Stop: 03/03/19 15:59 Levothyroxine Sodium (Synthroid) 150 mcg PO DAILYBB [facility] Stop: 03/22/19 06:29 Last Admin: 02/21/19 06:08 Dose: 150 mcg Documented by: Losartan Potassium (Cozaar) 50 mg PO HS@2200 [facility] Stop: 03/21/19 21:59 Last Admin: 02/20/19 20:27 Dose: 50 mg Documented by: Magnesium Oxide (Mag-Ox) 400 mg PO QAM [facility] Stop: 03/22/19 08:59 Last Admin: 02/21/19 07:53 Dose: 400 mg Documented by: Montelukast Sodium (Singulair) 10 mg PO DAILY@1800 [facility] Stop: 03/21/19 17:59 Last Admin: 02/20/19 17:53 Dose: 10 mg Documented by: Pantoprazole Sodium (Protonix) 40 mg PO BID [facility] Stop: 03/21/19 20:59 Last Admin: 02/21/19 07:54 Dose: 40 mg Documented by: Potassium Chloride (Klor-Con M10) 10 meq PO MoTuWeThFr@0900 [facility] Stop: 03/22/19 11:29 Last Admin: 02/21/19 07:53 Dose: 10 meq Documented by: Prednisone (Prednisone) 40 mg PO DAILY [facility] Stop: 03/23/19 08:59 Last Admin: 02/21/19 07:53 Dose: 40 mg Documented by: Ranitidine HCl (Zantac) 150 mg PO DAILY [facility] Stop: 03/22/19 08:59 Last Admin: 02/21/19 07:54 Dose: 150 mg Documented by: Ranitidine HCl (Zantac) 300 mg PO DAILY@1800 [facility] Stop: 03/21/19 17:59 Last Admin: 02/20/19 17:52 Dose: 300 mg Documented by: Spironolactone (Aldactone) 12.5 mg PO DAILY@0900 [facility] Stop: 03/22/19 08:59 Last Admin: 02/21/19 07:52 Dose: 12.5 mg Documented by: Tamoxifen Citrate (Nolvadex) 20 mg PO DAILY [facility] Stop: 03/22/19 08:59 Last Admin: 10/10/19 07:54 Dose: 20 mg Documented by: Trazodone HCl (Desyrel) 25 mg PO HS@2200 [facility] Stop: 03/21/19 21:59 Last Admin: 02/20/19 20:25 Dose: 25 mg Documented by: Triamcinolone Acetonide (Nasacort) 1 sprays NA BID [facility] Stop: 03/21/19 20:59 Last Admin: 02/21/19 07:54 Dose: 1 sprays Documented by: Warfarin Sodium (Coumadin) 2.5 mg PO SuTuWeFrSa@1600 [facility] Stop: 03/21/19 16:26 Last Admin: 02/20/19 16:19 Dose: 2.5 mg Documented by: Warfarin Sodium (Coumadin) 3.75 mg PO MoTh@1600 [facility] Stop: 03/23/19 15:59 (1) Asthma exacerbation Asthma persistence: unspecified Asthma severity: mild Qualified Code(s): J45.901 - Unspecified asthma with (acute) exacerbation (2) Dyspnea Dyspnea type: dyspnea on exertion Qualified Code(s): R06.09 - Other forms of dyspnea (3) Sinusitis Chronicity: subacute Sinusitis location: unspecified location Qualified Code(s): J01.90 - Acute sinusitis, unspecified
[2019-02-21] MEDS ORDERED: WARFARIN SOD 1.25 MG TAB PO SCH (16:00)
[2019-02-21] MEDS: levoFLOXacin 250 MG TABLET PO SCH (16:04)
[2019-02-21] MEDS: MONTELUKAST SODIUM 10 MG TABLET PO SCH (17:45)
[2019-02-21] MEDS: ATORVASTATIN 40 MG TAB PO SCH (17:45)
[2019-02-21] MEDS: SODIUM CHLORIDE 0.65% NA SOLN 45 ML (OCEAN) SCH ×2 (17:45→20:07)
[2019-02-21] MEDS: carvediloL 6.25 MG TAB PO SCH (17:45)
[2019-02-21] MEDS: BENZONATATE 100 MG CAPSULE PO PRN (20:09)
[2019-02-21] MEDS: TRAZODONE HCL 50 MG TAB PO SCH (20:09)
[2019-02-21] MEDS: GABAPENTIN 100 MG CAP PO SCH (20:10)
[2019-02-21] MEDS: ISOSORBIDE MONO EXTENDED REL 60 MG TABCR PO SCH (20:11)
[2019-02-22] MEDS: LEVALBUTEROL HCL 1.25 MG/3 ML NEB INH SCH ×4 (00:42→19:04)
[2019-02-22] MEDS: ACETAMINOPHEN 325 MG TAB PO PRN ×2 (01:02→20:48)
[2019-02-22] MEDS ORDERED: GUAIFENESIN/CODEINE 200MG/20MG 10ML UDC ONE (05:31)
[2019-02-22] MEDS: carvediloL 12.5 MG TAB PO SCH ×2 (06:11→18:07)
[2019-02-22] MEDS: LEVOTHYROXINE SODIUM 150 MCG TABLET PO SCH (06:13)
[2019-02-22] MEDS: ESCITALOPRAM OXALATE 10 MG TAB PO SCH (07:59)
[2019-02-22] MEDS: SPIRONOLACTONE 25 MG TAB PO SCH (07:59)
[2019-02-22] MEDS: MAGNESIUM OXIDE 400 MG TAB PO SCH (07:59)
[2019-02-22] MEDS: TAMOXIFEN CITRATE 10 MG TABLET PO SCH (07:59)
[2019-02-22] MEDS: predniSONE 50 MG TAB PO SCH (07:59)
[2019-02-22] MEDS: FEXOFENADINE HCL 180 MG TAB PO SCH (07:59)
[2019-02-22] MEDS: FOLIC ACID 1 MG TAB PO SCH (07:59)
[2019-02-22] MEDS: POTASSIUM CHLORIDE 10 MEQ TABCR PO SCH (07:59)
[2019-02-22] MEDS: ASPIRIN 81 MG ECTAB PO SCH (07:59)
[2019-02-22] MEDS: TRIAMCINOLONE ACET NASAL SPRAY 10.8ML BTL SCH ×2 (07:59→20:17)
[2019-02-22] MEDS: allopurinoL 100 MG TAB PO SCH (08:00)
[2019-02-22] MEDS: guaiFENesin SUGAR FREE 200 MG/10 ML UDC PO PRN ×2 (08:00→20:18)
[2019-02-22] MEDS: SODIUM CHLORIDE 0.65% NA SOLN 45 ML (OCEAN) SCH ×4 (08:00→20:17)
[2019-02-22] MEDS: PANTOprazole 40 MG TAB PO SCH ×2 (08:00→20:18)
[2019-02-22 08:01] LABS: INR 2.4 (0.9-1.1); Prothrombin Time 23.5 Seconds (9.0-12.0)
[2019-02-22 08:21] LABS: BUN Creatinine Ratio 23.7 (10-20); Creatinine Clr Calc Pharmacy 19.4 ml/min; Est GFR (African American) 30.5; Est GFR (Non-African American) 26.3; Magnesium 1.8 mg/dl (1.8-2.4); Potassium 3.6 mmol/L (3.5-5.1)
[2019-02-22] MEDS ORDERED: ERGOCALCIFEROL 50,000 UNITS CAP PO SCH (09:00)
[2019-02-22] MEDS ORDERED: NON-FORMULARY MEDICATION (Cholecalciferol (Vitamin D3) [Vitamin D3] 2,000 UNITS) PO SCH (09:00)
[2019-02-22] MEDS: CALCITONIN SALMON NA 200 IU/AC 3.7 ML BTL SCH (09:18)
[2019-02-22] MEDS: CHOLECALCIFEROL 1,000 UNITS TAB PO SCH (09:18)
[2019-02-22] MEDS: DOCUSATE SODIUM/SENNA 50/8.6MG TAB PO PRN (09:18)
[2019-02-22] MEDS: BENZONATATE 100 MG CAPSULE PO PRN (09:19)
--- NOTE | 2019-02-22 09:31 | Cardiology Progress Note ---
Date of Service February 22, 2019 Assessment & Plan (1) Asthmatic bronchitis with acute exacerbation: Patient with significant reactive airway disease with multiple recent exacerbations, refractory to outpatient management. Scattered rhonchi and diffuse anterior expiratory wheezing noted on examination today Management as per hospitalist. (2) Diastolic heart failure secondary to hypertension: Brittle diastolic heart failure history. History and examination today reveal normovolemia (3) Labile hypertension: Long-standing labile hypertension with hypertensive heart disease and brittle diastolic, class 3congestive heart failure. BP elevated today, likely secondary what appears to be musculoskeletal left sided rib pain and holding Losartan + furosemide. Resume prior antihypertensive regimen when able. PRN Hydralazine recommended in house. I would not change her antihypertensive regimen on discharge. (4) PAF (paroxysmal atrial fibrillation): Past paroxysmal atrial fibrillation. Patient maintaining sinus rhythm by history and examination [id number] Score 7 points Recommend continuation of chronic Coumadin anticoagulation with an INR goal of 2.0 to 3.0 INR 2.4 today (5) CAD (coronary artery disease): History of mild nonobstructive coronary atherosclerosis by cardiac catheterization 2011. Electrocardiogram without acute changes Troponin negative. Recommend continued medical management. (6) Chest pain: Appears to be musculoskeletal discomfort. Left sided rib x-rays requested. Further evaluation as per hospitalist. Dr. Darrell Montero is covering this weekend. Please call if there are any questions or concerns. Supervising Physician Co-Signing Physician Notes Patient seen and examined with Dionicio Morrison PA-C. Agree with findings and assessment as above. Still with productive cough, does not examine as volume overloaded. No need for active diuresis at this time. No active cardiac component present. Some left sided chest wall pain, positional, will check rib series. Will sign off. Please call with questions or concerns. Subjective Patient seen and examined. Chart reviewed. Nonmonitored bed. Considerable left lateral rib pain with movement and when coughing; she wonders if she hurt something getting off the table for the CT scan or in bed. Ongoing cough, chest congestion, and expiratory wheezing. Relatively stable dyspnea. No hemoptysis. No palpitations. No PND. No edema. Review of Systems Review of Systems: All systems reviewed & are unremarkable except as noted in HPI & below Physical Exam Physical Exam: General: A&Ox3. NAD. HEENT: No overt JVD. Examined in the bedside chair. Chest: Reproducible tenderness over the left lateral lower ribs. Small area of ecchymosis noted. Lungs: Scattered rhonchi, mildly improved compared to yesterday. Ongoing expiratory wheezing anteriorly and in the right upper lobe posteriorly. Heart: RRR, 60 bpm. Abdomen: +BS. Soft. Nontender. Extremities: + Lymphedematous changes. Chronic varocosities. No significant edema. No cyanosis or clubbing. Neuro: No focal deficit. Results & Data Vital Signs (Past 12 Hours) Vital Signs Temp Pulse Pulse Resp BP Pulse Ox Pulse Ox 02/22/19 07:28 79 19 91 02/22/19 07:00 36.8 C 64 20 182/82 H 93 02/22/19 01:10 68 89 L 02/21/19 23:09 61 88 L 02/21/19 23:00 36.6 C 61 20 148/75 H 90 Laboratory Results - last 24 hr 02/22/19 02/22/19 07:36 07:36 PT 23.5 H INR 2.4 H Sodium 137 Potassium 3.6 Chloride 99 Carbon Dioxide 30 Anion Gap 7.0 BUN 41 H Creatinine 1.72 H Est Cr Clr Drug Dosing 19.4 Est GFR ( Amer) 30.5 Est GFR (Non-Af Amer) 26.3 BUN/Creatinine Ratio 23.7 H Glucose 99 Calcium 9.0 Magnesium 1.8
[2019-02-22] MEDS ORDERED: HydrALAZINE HCL 20 MG/ML VIAL IV STA (09:36)
--- NOTE | 2019-02-22 13:45 | XRay Report ---
XR ribs LT min 3V w CXR1V HISTORY: 88 years-old Female distal left lateral rib pain acute chest with left lateral rib pain COMPARISON: Chest radiograph and CTA chest 02/19/2019 TECHNIQUE: PA view of the chest with 3 views of the left ribs FINDINGS: Cardiac silhouette is mildly enlarged, unchanged. Mild right hemidiaphragm elevation. No pneumothorax , large pleural effusion or overt pulmonary edema. Minimal left basilar opacities suggest probable at electasis. Degenerative changes of the shoulders and spine. Mild thoracolumbar sigmoidal scoliosis. N o acute displaced rib fracture identified. There is an equivocal acute or subacute appearing fracture of the lateral left 10th rib. IMPRESSION: 1. No acute processes of the chest. 2. Equivocal acute or subacute nondisplaced fracture of the lateral left 10th rib. Correlate clinical ly. The above report was generated using voice recognition software. It may contain grammatical, syntax o r spelling errors. Electronically signed by: Jonathan Pierre M.D. 02/22/2019 1:44 PM
--- NOTE | 2019-02-22 13:52 | Hospitalist Progress Note ---
Date of Service February 22, 2019 Assessment & Plan (1) Dyspnea: Likely multifactorial according to pulmonology. Etiologies include but not limited to persistent gastric reflux, severe postnasal drip, allergic rhinitis, and a possible component of asthma. CT sinuses support sinusitis. Improved on Levaquin and Prednisone so will cont both for short course. PFTs and ENT follow-up recommended as outpatient when she is improved. Sleep study as outpatient recommended, especially with positive overnight oximetry test. Will start nocturnal oxygen on discharge. Nasal rinses and continued use of nasal spray also recommended. (2) Sinusitis: Cont current course of levaquin. Nasal rinses instituted today. Cont Nasocort and Astelin. ENT follow-up as outpatient. (3) CARLO (acute kidney injury): In setting of CKD Stage III. Likely related to contrast administration on admission and recent increased Lasix use. Encouraged oral hydration and hold Lasix and Losartan for now. Trend BMP in am. (4) Asthma exacerbation: Improved, wheezing still present. Cont short course prednisone per pulm. Cont neb treatments because she takes these religiously at home. Also on pulmicort nebs which has been held while she is on systemic steroids. (5) Chronic diastolic CHF (congestive heart failure): -Patient with history of brittle diastolic CHF with frequent exacerbations -Currently examines to be euvolemic -holding diuretic in setting of CARLO and recent contrast administration. Trend BMP in am. Weight is stable, cont low sodium diet (6) Hypomagnesemia: Resolved, likely secondary to her protonix. Placed her on Magneisum supplementation. Stable. Will need to be followed as outpatient. (7) History of breast cancer: -S/P lumpectomy -Currently on tamoxifen -CTA chest noted 1.2 cm subareolar nodule in the left breast; patient had mammogram on 02/11/2019 that showed avascular superficial hypoechoic mass with well-defined margins measuring 11 x 6 x 11 mm -follow-up diagnostic mammogram in 6 months recommended -Patient follows closely with Dr. Angelica Pavon (8) CAD (coronary artery disease): -Nonobstructive -Appears stable -Continue aspirin, Lipitor, Coreg, Imdur, losartan held in setting of CARLO. BP at goal. (9) Labile hypertension: -BP currently controlled -Continue carvedilol, isosorbide Losartan and lasix held as above. (10) PAF (paroxysmal atrial fibrillation): -Currently in NSR -Rate controlled on beta-ced -Anticoagulated on Coumadin (11) Hypothyroidism (acquired): -Continue levothyroxine (12) DVT prophylaxis: coumadin full code dispo-expect to return home when medically stable. Will need HH for PT/OT services at discharge. Leisa Fernandes DO [facility] Hospitalist Subjective Still feeling poorly with respect to her cough and breathing. Used Robitussin overnight which helped her cough Congestion still present, but she is no worse and is ambulating at baseline. Afebrile for >48 hours. Review of Systems Review of Systems: All systems reviewed & are unremarkable except as noted in HPI & below Physical Exam Physical Exam: CONSTITUTIONAL: obese, vitals as above, generally well- appearing EYES: normal conjunctivae, no scleral icterus ENT: MMM RESPIRATORY: scattered wheezes throughout, normal respiratory effort CARDIOVASCULAR: regular rate and rhythm, S1 and 2 heard without murmurs, gallops or rubs, no JVD, no peripheral edema GASTROINTESTINAL: normal bowel sounds, soft, nontender, nondistended MUSCULOSKELETAL: strength 5/5 throughout, head is normocephalic and atraumatic SKIN: warm and dry NEUROLOGIC: CN 2-12 grossly intact, normal cognition, normal speech, no gross neurologic deficits. PSYCHIATRIC: alert cooperative and oriented to person, place and time. Results & Data Vital Signs (Past 12 Hours) Vital Signs Temp Pulse Resp BP BP Pulse Ox 02/22/19 10:48 65 137/81 02/22/19 07:28 79 19 91 02/22/19 07:00 36.8 C 64 20 182/82 H 93 Laboratory Results [facility] 02/22/19 07:36 Sodium 137 Potassium 3.6 Chloride 99 Carbon Dioxide 30 BUN 41 H Creatinine 1.72 H Glucose 99 Calcium 9.0 Medications Administered Current Inpatient Medications Acetaminophen (Tylenol) 650 mg PO Q4H PRN PRN Reason: pain/fever Stop: 03/21/19 16:26 Last Admin: 02/22/19 01:02 Dose: 650 mg Documented by: Allopurinol (Zyloprim) 200 mg PO DAILY [facility] Stop: 03/22/19 08:59 Last Admin: 02/22/19 08:00 Dose: 200 mg Documented by: Aspirin (Ecotrin Ectab) 81 mg PO DAILY [facility] Stop: 03/22/19 08:59 Last Admin: 02/22/19 07:59 Dose: 81 mg Documented by: Atorvastatin Calcium (Lipitor) 40 mg PO DAILY@1800 [facility] Stop: 03/21/19 17:59 Last Admin: 02/21/19 17:45 Dose: 40 mg Documented by: Benzonatate (Tessalon Perle) 100 mg PO TID PRN PRN Reason: Cough Stop: 03/21/19 19:46 Last Admin: 02/22/19 09:19 Dose: 100 mg Documented by: Calcitonin [place] (Fortical) 1 sprays NA DAILY@1100 [facility] Stop: 03/24/19 10:59 Last Admin: 02/22/19 09:18 Dose: 1 sprays Documented by: Carvedilol (Coreg) 6.25 mg PO DAILY@1800 [facility] Stop: 03/21/19 17:59 Last Admin: 02/21/19 17:45 Dose: 6.25 mg Documented by: Carvedilol (Coreg) 12.5 mg PO DAILY@0600,1800 [facility] Stop: 03/21/19 17:59 Last Admin: 02/22/19 06:11 Dose: 12.5 mg Documented by: Escitalopram Oxalate (Lexapro Tab) 5 mg PO DAILY [facility] Stop: 03/22/19 08:59 Last Admin: 02/22/19 07:59 Dose: 5 mg Documented by: Fexofenadine HCl (Loraine) 180 mg PO DAILY [facility] Stop: 03/22/19 08:59 Last Admin: 02/22/19 07:59 Dose: 180 mg Documented by: Folic Acid (Folvite) 1 mg PO DAILY [facility] Stop: 03/22/19 08:59 Last Admin: 02/22/19 07:59 Dose: 1 mg Documented by: Furosemide (Lasix) 40 mg PO SuTuThFr@0900 [facility] Stop: 03/23/19 08:59 Last Admin: 02/21/19 07:53 Dose: 40 mg Documented by: Furosemide (Lasix) 60 mg PO MoWeSa@0900 [facility] Stop: 03/22/19 08:59 Last Admin: 02/20/19 08:06 Dose: 60 mg Documented by: Gabapentin (Neurontin) 100 mg PO HS@2200 [facility] Stop: 03/21/19 21:59 Last Admin: 02/21/19 20:10 Dose: 100 mg Documented by: Guaifenesin (Robitussin Sugar Free) 200 mg PO Q6H PRN PRN Reason: Cough Stop: 03/24/19 04:42 Last Admin: 02/22/19 08:00 Dose: 200 mg Documented by: Isosorbide Mononitrate (Imdur Extended Rel) 120 mg PO HS@2200 [facility] Stop: 03/21/19 21:59 Last Admin: 02/21/19 20:11 Dose: 120 mg Documented by: Levalbuterol HCl (Xopenex 1.25mg/3ml Neb) 1.25 mg INH Q6R [facility] Stop: 03/21/19 17:59 Last Admin: 02/22/19 13:28 Dose: Not Given Documented by: Levofloxacin (Levaquin) 250 mg PO DAILY@1600 [facility]; Protocol Stop: 03/03/19 15:59 Last Admin: 02/21/19 16:04 Dose: 250 mg Documented by: Levothyroxine Sodium (Synthroid) 150 mcg PO DAILYBB [facility] Stop: 03/22/19 06:29 Last Admin: 02/22/19 06:13 Dose: 150 mcg Documented by: Losartan Potassium (Cozaar) 50 mg PO HS@2200 [facility] Stop: 03/21/19 21:59 Last Admin: 02/20/19 20:27 Dose: 50 mg Documented by: Magnesium Oxide (Mag-Ox) 400 mg PO QAM [facility] Stop: 03/22/19 08:59 Last Admin: 02/22/19 07:59 Dose: 400 mg Documented by: Miscellaneous (Order Awaiting Action) 1 ea N/A QS [facility] Stop: 03/24/19 00:00 Last Admin: 02/22/19 07:55 Dose: Not Given Documented by: Montelukast Sodium (Singulair) 10 mg PO DAILY@1800 [facility] Stop: 03/21/19 17:59 Last Admin: 02/21/19 17:45 Dose: 10 mg Documented by: Pantoprazole Sodium (Protonix) 40 mg PO BID [facility] Stop: 03/21/19 20:59 Last Admin: 02/22/19 08:00 Dose: 40 mg Documented by: Potassium Chloride (Klor-Con M10) 10 meq PO MoTuWeThFr@0900 [facility] Stop: 03/22/19 11:29 Last Admin: 02/22/19 07:59 Dose: 10 meq Documented by: Prednisone (Prednisone) 40 mg PO DAILY [facility] Stop: 03/23/19 08:59 Last Admin: 02/22/19 07:59 Dose: 40 mg Documented by: Ranitidine HCl (Zantac) 150 mg PO DAILY [facility] Stop: 03/22/19 08:59 Last Admin: 02/22/19 07:59 Dose: 150 mg Documented by: Ranitidine HCl (Zantac) 300 mg PO DAILY@1800 [facility] Stop: 03/21/19 17:59 Last Admin: 02/21/19 17:45 Dose: 300 mg Documented by: Senna/Docusate Sodium (Senokot S) 1 tab PO DAILY PRN PRN Reason: Constipation Stop: 03/23/19 20:30 Last Admin: 02/22/19 09:18 Dose: 1 tab Documented by: Sodium Chloride (Stevens Nasal) 4 sprays NA QID [facility] Stop: 03/23/19 16:59 Last Admin: 02/22/19 08:00 Dose: 4 sprays Documented by: Spironolactone (Aldactone) 12.5 mg PO DAILY@0900 [facility] Stop: 03/22/19 08:59 Last Admin: 02/22/19 07:59 Dose: 12.5 mg Documented by: Tamoxifen Citrate (Nolvadex) 20 mg PO DAILY [facility] Stop: 03/22/19 08:59 Last Admin: 02/22/19 07:59 Dose: 20 mg Documented by: Trazodone HCl (Desyrel) 25 mg PO HS@2200 [facility] Stop: 03/21/19 21:59 Last Admin: 02/21/19 20:09 Dose: 25 mg Documented by: Triamcinolone Acetonide (Nasacort) 1 sprays NA BID [facility] Stop: 03/21/19 20:59 Last Admin: 02/22/19 07:59 Dose: 1 sprays Documented by: Vitamin D (Vitamin D3) 2,000 units PO DAILY [facility] Stop: 03/24/19 08:59 Last Admin: 02/22/19 09:18 Dose: 2,000 units Documented by: Warfarin Sodium (Coumadin) 2.5 mg PO SuTuWeFrSa@1600 [facility] Stop: 03/21/19 16:26 Last Admin: 02/20/19 16:19 Dose: 2.5 mg Documented by: Warfarin Sodium (Coumadin) 3.75 mg PO MoTh@1600 [facility] Stop: 03/23/19 15:59 Last Admin: 02/21/19 16:04 Dose: 3.75 mg Documented by: (1) Asthma exacerbation Asthma persistence: unspecified Asthma severity: mild Qualified Code(s): J45.901 - Unspecified asthma with (acute) exacerbation (2) Dyspnea Dyspnea type: dyspnea on exertion Qualified Code(s): R06.09 - Other forms of dyspnea (3) Sinusitis Chronicity: subacute Sinusitis location: unspecified location Qualified Code(s): J01.90 - Acute sinusitis, unspecified
[2019-02-22] MEDS: levoFLOXacin 250 MG TABLET PO SCH (16:49)
[2019-02-22] MEDS: WARFARIN SOD 2.5 MG TAB PO SCH (16:49)
[2019-02-22] MEDS: MONTELUKAST SODIUM 10 MG TABLET PO SCH (18:07)
[2019-02-22] MEDS: ATORVASTATIN 40 MG TAB PO SCH (18:07)
[2019-02-22] MEDS: carvediloL 6.25 MG TAB PO SCH (18:07)
[2019-02-22] MEDS: TRAZODONE HCL 50 MG TAB PO SCH (21:25)
[2019-02-22] MEDS: ISOSORBIDE MONO EXTENDED REL 60 MG TABCR PO SCH (21:26)
[2019-02-22] MEDS: GABAPENTIN 100 MG CAP PO SCH (21:27)
[2019-02-23] MEDS: LEVALBUTEROL HCL 1.25 MG/3 ML NEB INH SCH ×3 (00:59→13:15)
[2019-02-23] MEDS: TRAMADOL HCL 50 MG TABLET PO PRN ×2 (01:25→07:43)
[2019-02-23] MEDS ORDERED: LIDOCAINE 5% 1 PATCH TD SCH (05:00)
[2019-02-23] MEDS: carvediloL 12.5 MG TAB PO SCH (05:40)
[2019-02-23] MEDS: LEVOTHYROXINE SODIUM 150 MCG TABLET PO SCH (05:40)
[2019-02-23 06:42] LABS: Prothrombin Time 28.6 Seconds (9.0-12.0)
[2019-02-23 06:55] LABS: BUN Creatinine Ratio 22.1 (10-20); Calcium 8.6 mg/dl (8.5-10.1); Creatinine Clr Calc Pharmacy 21.4 ml/min; Est GFR (African American) 34.5; Est GFR (Non-African American) 29.8; Potassium 3.6 mmol/L (3.5-5.1)
[2019-02-23] MEDS: FEXOFENADINE HCL 180 MG TAB PO SCH (07:24)
[2019-02-23] MEDS: MAGNESIUM OXIDE 400 MG TAB PO SCH (07:25)
[2019-02-23] MEDS: FOLIC ACID 1 MG TAB PO SCH (07:25)
[2019-02-23] MEDS: predniSONE 50 MG TAB PO SCH (07:25)
[2019-02-23] MEDS: ASPIRIN 81 MG ECTAB PO SCH (07:25)
[2019-02-23] MEDS: TAMOXIFEN CITRATE 10 MG TABLET PO SCH (07:26)
[2019-02-23] MEDS: SPIRONOLACTONE 25 MG TAB PO SCH (07:27)
[2019-02-23] MEDS: ESCITALOPRAM OXALATE 10 MG TAB PO SCH (07:28)
[2019-02-23] MEDS: TRIAMCINOLONE ACET NASAL SPRAY 10.8ML BTL SCH (07:29)
[2019-02-23] MEDS: PANTOprazole 40 MG TAB PO SCH (07:29)
[2019-02-23] MEDS: CHOLECALCIFEROL 1,000 UNITS TAB PO SCH (07:29)
[2019-02-23] MEDS: SODIUM CHLORIDE 0.65% NA SOLN 45 ML (OCEAN) SCH (07:29)
[2019-02-23] MEDS: allopurinoL 100 MG TAB PO SCH (07:30)
[2019-02-23] MEDS: DOCUSATE SODIUM/SENNA 50/8.6MG TAB PO PRN (07:37)
[2019-02-23] MEDS: guaiFENesin SUGAR FREE 200 MG/10 ML UDC PO PRN (08:50)
[2019-02-23] MEDS ORDERED: FUROSEMIDE 40 MG TAB PO SCH (09:00)
[2019-02-23] MEDS ORDERED: POTASSIUM CHLORIDE 10 MEQ TABCR PO SCH (09:00)
[2019-02-23] MEDS: CALCITONIN SALMON NA 200 IU/AC 3.7 ML BTL SCH (10:49)
--- NOTE | 2019-02-23 12:42 | Discharge Summary ---
Date of Service February 23, 2019 Admission HPI Per Admitting Provider 88-year-old female who presents to the ED for shortness of breath. Patient recently has been following closely with cardiology for management of chronic diastolic CHF. Diuretics were increased about 2 weeks ago. Over the weekend, patient noted a 2 pound weight gain and took an additional dose of Lasix on Monday. She still remains about 2 pounds over her dry weight. Yesterday, patient developed wheezing, coughing, shortness of breath. She also has history of asthma with history of frequent exacerbations. Per daughter, patient has been off antibiotics and steroids for about the past 3 weeks. She has an a moxicillin and prednisone rescue pack to take at home as needed. Early this morning, around 5 AM patient shortness of breath acutely worsened and she was also found to have a fever of 102. There was some mild confusion noted as well. Daughter gave her a nebulizer treatment, dose of prednisone, dose of amoxicillin, Tylenol. Her symptoms did not improve and she was evaluated by her PCP. While there, pulse ox was found to be 90% and patient was referred to the ER for further evaluation. Cough is been productive for green sputum. Daughter notes being ill with similar symptoms a couple weeks ago. Despite being 2 pounds over her dry weight, patient reports her lower extremity edema has been significantly improving. She reports some episodic chest pain that seems to be associated with coughing. No lightheadedness, dizziness, diaphoresis, syncopal events. She denies abdominal pain, nausea, vomiting, diarrhea. No urinary symptoms. In the ED, patient was found to be hypoxic on room air at 87%. This improved with oxygen 2 L via via nasal cannula. CXR is negative for acute cardiopulmonary findings. CTA chest is negative for PE and other acute pulmonary findings. Labs show a mild hypokalemia and hypomagnesemia and otherwise are unremarkable. Admission Exam Per Admitting Provider Physical Exam Constitutional: WD/WN, vitals as above Eyes: PERRL, conjunctivae normal, anicteric sclerae ENMT: external ear and nose normal, oropharynx normal Respiratory: normal respiratory effort, + cough and able to speak in complete sentences; no respiratory distress Auscultation: + diminished lung sounds Cardiovascular: Rate/Rhythm: regular rate and regular rhythm Vessels: normal peripheral pulses Extremities: no edema Gastrointestinal (Abdomen): normal bowel sounds, soft, nontender, no hepatosplenomegaly Musculoskeletal: no cyanosis or clubbing, extremities motor strength 5/5 Skin: no rashes, warm and dry Neurologic: PERRL, EOMI, accommodation nl, no face palsy, no dysarthria Psychiatric: A+Ox3, euthymic affect Principal Diagnosis Dyspnea-multifactorial, improved Sinusitis CARLO Asthma exacerbation Chronic diastolic heart failure Hypomagnesemia non-traumatic rib fracture Discharge Data 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, 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 sulfamethoxazole Allergy Mild RASH Verified 05/23/18 09:39 trimethoprim Allergy Mild RASH Verified 05/23/18 09:39 amlodipine Allergy Unknown Unverified 02/19/19 14:30 amoxicillin Allergy Rash Unverified 02/19/19 14:30 azithromycin Allergy Unknown Unverified 02/19/19 14:30 cefuroxime [From Ceftin] Allergy Diarrhea Unverified 02/19/19 14:30 ipratropium Allergy Unknown Unverified 02/19/19 14:30 Sulfa (Sulfonamide Allergy Hives Unverified 02/19/19 14:30 Antibiotics) Consultations 02/19/19 16:27 Consult Cardiology Routine Consult Case Management - Discharge Planning Routine Consult Pulmonology Routine Ordered Studies 02/19/19 12:00 CT angio chest PE protocol Stat 02/20/19 10:44 CT sinus wo con Urgent Hospital Course (1) Dyspnea: Likely multifactorial according to pulmonology. Etiologies include but not limited to persistent gastric reflux, severe postnasal drip, allergic rhinitis, and a possible component of asthma. CT sinuses support sinusitis. Improved on Levaquin and Prednisone so will cont both for short course. PFTs and ENT follow-up recommended as outpatient when she is improved. Sleep study as outpatient recommended, especially with positive overnight oximetry test. Will start nocturnal oxygen on discharge. Nasal rinses and continued use of nasal spray also recommended. (2) Sinusitis: Cont current course of levaquin. Nasal rinses instituted regularly. Cont Nasocort and Astelin. ENT follow-up as outpatient. (3) CARLO (acute kidney injury): In setting of CKD Stage III. Likely related to contrast administration on admission and recent increased Lasix use. Encouraged oral hydration and hold Lasix and Losartan for now. Improved prior to discharge. Restarted Lasix and Losartan. (4) Asthma exacerbation: Improved, wheezing still present. Cont short course prednisone per pulm. Cont neb treatments because she takes these religiously at home. Also on pulmicort nebs which has been held while she is on systemic steroids. (5) Chronic diastolic CHF (congestive heart failure): -Patient with history of brittle diastolic CHF with frequent exacerbations -Currently examines to be euvolemic -holding diuretic in setting of CARLO and recent contrast administration. Trend BMP in am. Weight is stable, cont low sodium diet (6) Hypomagnesemia: Resolved, likely secondary to her protonix. Placed her on Magneisum supplementation. Stable. Will need to be followed as outpatient. (7) History of breast cancer: -S/P lumpectomy -Currently on tamoxifen -CTA chest noted 1.2 cm subareolar nodule in the left breast; patient had mammogram on 02/11/2019 that showed avascular superficial hypoechoic mass with well-defined margins measuring 11 x 6 x 11 mm -follow-up diagnostic mammogram in 6 months recommended -Patient follows closely with Dr. Angelica Pavon (8) CAD (coronary artery disease): -Nonobstructive -Appears stable -Continue aspirin, Lipitor, Coreg, Imdur, losartan held in setting of CARLO. BP at goal. (9) Labile hypertension: -BP currently controlled -Continue carvedilol, isosorbide Losartan and lasix held as above. (10) PAF (paroxysmal atrial fibrillation): -Currently in NSR -Rate controlled on beta-ced -Anticoagulated on Coumadin (11) Hypothyroidism (acquired): -Continue levothyroxine Total Time Total Time Spent Total Time Spent (In Minutes): 60 Total Time Includes: Examination of the Patient, Discharge Planning, Medication Reconciliation and Communication With Other Providers Discharge Plan Discharge Items Patient Disposition: Home - Home Health Services Reason For Visit: HYPOXIA Discharge Diagnosis: Dyspnea-multifactorial, improved Sinusitis CARLO Asthma exacerbation Chronic diastolic heart failure Hypomagnesemia non-traumatic rib fracture Condition on Discharge: Good Activity: Resume your previous activity Non-emergency contact: Primary Care Provider Call non-emergency contact if: you have any medication questions, your symptoms worsen, your pain is not controlled, your pain is worsening, your pain is unusual for you, your pain is concerning for you and you have a fever Follow-up/Referrals: Cate Stone MD [Primary Care Provider] - Diet: Low Sodium (2gm) Addtl Attending Provider Instructions: Please take all medications per discharge list below. Feel free to use Robitussin (guaifenesin) [id number] as needed for additional cough symptoms. It is recommended that you follow-up with your primary care physician within one week. Someone will contact you after the weekend to set this up. [place] [facility] [place] as [place]. A sleep study (polysomnogram) is recommended to further investigate if you have any sleep apnea. It is recommended that you obtain a referral to an ENT physician (shoe stitcher) to further investigate your chronic cough and breathing symptoms in addition to following with Pulmonology. It was a pleasure taking care of you! Please call if you have any questions or problems. You can reach a [facility] hospitalist on duty at [facility] 24 hours a day by calling [phone]. Take care of yourself. Leisa Fernandes, [facility] Pending Studies at Discharge: No Stand-Alone Forms: My [facility] Medications and DC Order Prescriptions: New levofloxacin 250 mg Tablet 250 mg PO DAILY@1600 Qty: 3 RF: 0 tramadol 50 mg Tablet 25 - 50 mg PO Q4H PRN (Reason: severe pain) Qty: 30 RF: 0 furosemide 40 mg tablet 40 mg PO DAILY Qty: 30 RF: 1 potassium chloride 10 mEq tablet extended release 10 meq PO DAILY Qty: 30 RF: 1 magnesium oxide 400 mg (241.3 mg magnesium) Tablet 400 mg PO QAM Qty: 30 RF: 1 famotidine [Pepcid] 20 mg tablet 20 mg PO BID PRN (Reason: breakthrough heartburn) 30 Days Qty: 60 RF: 1 Oxygen Home Liters Per Minute .ROUTE .MEDSUPPLY Qty: 1 RF: 0 Continued amoxicillin 500 mg Capsule 500 mg PO BID PRN (Reason: Other) RF: 0 atorvastatin 40 mg Tablet 40 mg PO DAILY@1800 RF: 0 carvedilol [Coreg] 25 mg Tablet 12.5 mg PO BID RF: 0 carvedilol [Coreg] 6.25 mg Tablet 6.25 mg PO DAILY@1800 RF: 0 sucralfate [Carafate] 1 gram Tablet 1 g PO QID PRN (Reason: Acid Reflux) RF: 0 warfarin 2.5 mg Tablet 3.75 mg PO MOTH RF: 0 allopurinol 100 mg Tablet 200 mg PO DAILY RF: 0 spironolactone 25 mg Tablet 12.5 mg PO DAILY@0900 RF: 0 isosorbide mononitrate 120 mg Tablet Extended Release 24 Hr 120 mg PO HS@2200 RF: 0 prednisone 10 mg Tablets,Dose Pack 10 mg PO DIRECTED PRN (Reason: Other) RF: 0 calcitonin (salmon) 200 unit/actuation [place],Non-Aerosol 1 spray intranasal DAILY RF: 0 benzonatate 100 mg Capsule 100 mg PO TID PRN (Reason: Cough) RF: 0 budesonide 0.5 mg/2 mL Suspension For Nebulization 0.5 mg INHALATION BID RF: 0 levalbuterol HCl [Xopenex] 1.25 mg/3 mL Solution For Nebulization 1.25 mg INHALATION TID RF: 0 tamoxifen 20 mg Tablet 20 mg PO DAILY RF: 0 iron-vit B [id number]-[id number]-liver ex Tablet 1 tab PO MOWEFR RF: 0 levothyroxine 150 mcg Capsule 150 mcg PO DAILY RF: 0 losartan 50 mg Tablet 50 mg PO HS@2200 RF: 0 aspirin [Aspirin Low Dose] 81 mg Tablet,Delayed Release (Dr/Ec) 81 mg PO DAILY RF: 0 pantoprazole [Protonix] 40 mg Tablet,Delayed Release (Dr/Ec) 40 mg PO BID RF: 0 nitroglycerin [Nitrostat] 0.4 mg Tablet, Sublingual 0.4 mg buccal DAILY PRN (Reason: Chest Pain) RF: 0 montelukast 10 mg Tablet 10 mg PO DAILY@1800 RF: 0 cholecalciferol (vitamin D3) [Vitamin D3] 1,000 unit Capsule 2,000 unit PO DAILY RF: 0 escitalopram oxalate [Lexapro] 10 mg Tablet 5 mg PO DAILY RF: 0 hydralazine 10 mg Tablet 10 mg PO BID PRN (Reason: HTN) RF: 0 fexofenadine 180 mg Tablet 180 mg PO DAILY RF: 0 calcium carbonate 600 mg calcium (1,500 mg) Tablet 1,200 mg PO DAILY@1800 RF: 0 warfarin 2.5 mg tablet 2.5 mg PO SUTUWEFRSA RF: 0 triamcinolone acetonide [Nasacort] 55 mcg Aerosol,[place] 1 spray INTRANASAL BID RF: 0 azelastine 137 mcg (0.1 %) Aerosol,[place] 1 spray INTRANASAL BID RF: 0 docusate sodium 100 mg Tablet 500 mg PO BID RF: 0 sodium chloride [Saline Nasal] 0.65 % Aerosol,[place] 2 spray INTRANASAL QID PRN (Reason: Nasal Congestion) RF: 0 Brovana 15 mcg/2 mL Solution For Nebulization 15 mcg INHALATION BID PRN (Reason: Shortness Of Breath) RF: 0 nystatin 100,000 unit/mL suspension 5 ml PO BID RF: 0 Discontinued furosemide 40 mg Tablet 40 mg PO SUTUTHFR RF: 0 trazodone 50 mg Tablet 25 mg PO HS@2200 RF: 0 gabapentin 100 mg Capsule 100 mg PO HS@2200 RF: 0 ranitidine HCl 150 mg Capsule 150 mg PO DAILY RF: 0 potassium chloride 10 mEq Tablet Extended Release 10 meq PO MOTUWETHFR RF: 0 folic acid 1 mg Tablet 1 mg PO DAILY RF: 0 furosemide 40 mg tablet 60 mg PO MOWESA RF: 0 ranitidine HCl 150 mg tablet 300 mg PO DAILY@1800 RF: 0 Discharge Orders: Discharge Order (Routine); Ordered 02/23/19 Ordered By: Leisa Fernandes Admission Data Admit Date/Time: 02/19/19 15:10 Attending Provider: Leisa Fernandes Admit Provider: Leisa Fernandes Primary Care Provider: Cate Stone Other Providers: Pio Benjamin ; Rambo Nunes Other Interventions: Discharge Summary Assessment (RN) Last Done: 02/23/19 13:42 DC Date/Time DO NOT enter until pt leaves facility: 02/23/19 14:26
--- NOTE | 2019-03-04 06:22 | Coding Query ---
PRESENT ON ADMISSION QUERY To promote full compliance with coding requirements relating to pateint care, physician participation is requested in all cases of skidder lever operator uncertainty. Please assist us with the question(s) below: Please place an X within the parenthesis (x). The following diagnosis(es) listed in this patient's medical record require physician assistance to determine if they were present on admission (POA) or not. Please advise for each diagnosis whether it was present on admission, not present on admission, or if it was clinically undetermined. 1. Non-traumatic Rib Fracture (documented on Discharge Summary) ( ) Present On Admission ( x) Not Present On Admission ( ) Clinically Undetermined The patient developed acute pain during the hospitalization after admission. Initial CT chest did not reveal evidence of a fracture, which was subsequently seen on imaging to further investigate the pain reported. Thank you. Thank you Aline Red *Definition of the present on admission (POA)-Present on admission is defined as present at the time the order for inpatient admission occurs. Conditions that develop during an outpatient encounter prior to a written order for inpatient admission (including emergency department, observation, or outpatient surgery) are considered present on admission. ANGEL
== END 2019-02-23 14:26 | disposition home health service (06) | DRG 202 ==
LOC: ED 10:03 → 2N 15:10

== ENCOUNTER 2020-03-31 10:27 | Observation (INO) ==
--- NOTE | 2020-03-31 10:51 | Emergency Department Note ---
Impression & Plan Syncope, Chest pain, Breath shortness ED Provider Note NAME: ANNEMARIE VILLANUEVA AGE: 89 SEX: F : 1930 ARRIVES VIA: Ambulance INFORMANT: Patient ED PROVIDER(S): Allen Song DO CHIEF COMPLAINT: Syncope with shortness of breath HPI: Patient is an 89-year-old female who presents the ER with a past medical history of CARLO, CHF, asthma and CAD along with TIAs. She had just gotten a shower and was getting out. She was significantly short of breath. She was trying to apply lotion to her legs. At this point she felt as though she could not breathe and her daughter noted that she passed out. She was lowered onto the toilet. She eventually woke up. She did have a bowel movement afterwards. They called EMS and she was brought in. She notes shortness of breath has improved. She denies any focal weakness or numbness. No headache or change in vision. No chest pain. No belly pain nausea vomiting or diarrhea. No other exacerbating or remitting factors. Denies any cough or runny nose. Patient was having some chest discomfort prior to this occurring per daughter. ROS: See above HPI for pertinent positives & negatives. A total of 10 systems reviewed and were otherwise negative. PAST MEDICAL HISTORY:See Below PAST SURGICAL HISTORY:See Below FAMILY HISTORY:See Below SOCIAL HISTORY:See Below HOME MEDICATIONS:See Below ALLERGIES:See Below VITALS:See Below PHYSICAL EXAMINATION: GENERAL: Sitting up in bed, alert, well appearing, well nourished, no distress, non-toxic, slightly dyspneic with conversation EYE EXAM: normal conjunctiva. PERRL and EOM's grossly intact. OROPHARYNX: no exudate, no erythema, lips, buccal mucosa, and tongue normal and mucous membranes are moist NECK: supple, no nuchal rigidity, no adenopathy, non-tender LUNGS: Clear to auscultation. Normal chest wall mechanics HEART: no murmurs, S1 normal and S2 normal ABDOMEN: abdomen soft, non-tender, normo-active bowel sounds, no masses, no rebound or guarding. BACK: Back is symmetrical on inspection and there is no deformity, no midline tenderness, no CVA tenderness. SKIN: no rashes and no bruising UPPER EXTREMITIES: upper extremities are grossly normal. LOWER EXTREMITIES: No pitting edema. NEURO EXAM: Normal sensorium, cranial nerves II-XII intact, normal speech, no weakness of arms, no weakness of legs. No drift. Finger to nose intact. Gross sensation intact. MEDICAL DECISION MAKING: She is an 89-year-old female who presents ER for syncopal episode which was preceded by chest pain shortness of breath. IV was established blood work was obtained. Labs show no significant leukocytosis and a mild anemia at 10. INR was therapeutic at 2.2. BMP with a creatinine of 1.67 consistent with previous. LFTs bilirubin was unremarkable. Troponin was negative. Lipase was unremarkable. Coronavirus was negative as well which was obtained upon admission. Chest x-ray as well as CT of the head showed no acute pathology. EKG was nondiagnostic. With her age and the shortness of breath prior to passing out did recommend admission and they were agreeable. PE was not pursued any further due to the therapeutic INR. Triage Nursing notes reviewed. Prior medical records reviewed Vital Signs: reviewed and remarkable for HTN Differential diagnosis: Differential diagnosis includes etiologies such as vasovagal event, infection, hypoglycemia, electrolyte abnormalities, cardiac sources, intracerebral event, toxicologic, neurologic, as well as others were entertained. ER treatment provided: See below Diagnostics interpreted by me: ECG: Sinus rhythm rate of 63 Left axis T wave flattening in aVL Septal Q waves QTC 416 Cardiac Monitoring: An order was placed for continuous cardiac monitoring. The monitor shows a rate of 65 with sinus rhythm. Laboratory studies: As stated above and show below. Imaging studies: Portable AP upright 1 view of the chest was unremarkable. CT of the head was negative. Consultation(s): Discussed with the hospitalist for further evaluation ED COURSE: Procedures: none Critical Care: None Past Med/Surg History Medical History (Updated 03/31/20 @ 16:53 by Allen Song DO) Anticoagulated on Coumadin Anxiety Asthma, moderate persistent Chronic diastolic CHF (congestive heart failure) CKD (chronic kidney disease), stage III Dyslipidemia GERD (gastroesophageal reflux disease) Gout Heart disease "nonobstructive disease per cath 2011" History of breast cancer Hypothyroidism (acquired) "s/p thyroidectomy and radioiodine therapy for cancer treatment" Hysterectomy (02/22/13) IBS (irritable bowel syndrome) Labile hypertension Osteoporosis (02/22/13) PAF (paroxysmal atrial fibrillation) 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 Father , Passed age 50 of [place] No problems noted. Brother Lung fibrosis Brother , Passed age 63 of allergic reaction to antibiotics No problems noted. Sister , Passed age 83 of "electrolyte disturbances" DCIS (ductal carcinoma in situ) Sister , Passed age 84 from post surgical complications No problems noted. Sister No problems noted. Daughter No problems noted. Daughter No problems noted. Son No problems noted. 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 [employer] Feels Safe at Home: Yes caffeine: No during the past year weight has: remained stable Assistive Devices: Glasses Allergies 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, 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 sulfamethoxazole Allergy Mild RASH Verified 03/31/20 14:00 trimethoprim Allergy Mild RASH Verified 03/31/20 14:00 amlodipine Allergy Unknown Unverified 03/31/20 14:00 amoxicillin Allergy Rash Unverified 03/31/20 14:00 azithromycin Allergy Unknown Unverified 03/31/20 14:00 cefuroxime [From Ceftin] Allergy Diarrhea Unverified 03/31/20 14:00 ipratropium Allergy Unknown Unverified 03/31/20 14:00 Sulfa (Sulfonamide Allergy Hives Unverified 03/31/20 14:00 Antibiotics) Home Meds Home Medications Medication Instructions Recorded Confirmed Brovana 15 mcg INHALATION BID PRN 02/19/19 02/19/19 allopurinol 200 mg PO DAILY 02/19/19 02/19/19 amoxicillin 500 mg PO BID PRN 02/19/19 02/19/19 aspirin [Aspirin Low Dose] 81 mg PO DAILY 02/19/19 02/19/19 atorvastatin 40 mg PO DAILY@1800 02/19/19 02/19/19 azelastine 1 spray INTRANASAL BID 02/19/19 02/19/19 benzonatate 100 mg PO TID PRN 02/19/19 02/19/19 budesonide 0.5 mg INHALATION BID 02/19/19 02/19/19 calcitonin (salmon) 1 spray INTRANASAL DAILY 02/19/19 02/19/19 calcium carbonate 1,200 mg PO DAILY@1800 02/19/19 02/19/19 carvedilol [Coreg] 6.25 mg PO DAILY@1800 02/19/19 02/19/19 carvedilol [Coreg] 12.5 mg PO BID 02/19/19 02/19/19 cholecalciferol (vitamin D3) 2,000 unit PO DAILY 02/19/19 02/19/19 [Vitamin D3] docusate sodium 500 mg PO BID 02/19/19 02/19/19 escitalopram oxalate [Lexapro] 5 mg PO DAILY 02/19/19 02/19/19 fexofenadine 180 mg PO DAILY 02/19/19 02/19/19 hydralazine 10 mg PO BID PRN 02/19/19 02/19/19 iron-vit B sfzp-C-tks-liver ex 1 tab PO MOWEFR 02/19/19 02/19/19 isosorbide mononitrate 120 mg PO HS@2200 02/19/19 02/19/19 levalbuterol HCl [Xopenex] 1.25 mg INHALATION TID 02/19/19 02/19/19 levothyroxine 150 mcg PO DAILY 02/19/19 02/19/19 losartan 50 mg PO HS@2200 02/19/19 02/19/19 montelukast 10 mg PO DAILY@1800 02/19/19 02/19/19 nitroglycerin [Nitrostat] 0.4 mg BUCCAL DAILY PRN 02/19/19 02/19/19 nystatin 5 ml PO BID 02/19/19 02/19/19 pantoprazole [Protonix] 40 mg PO BID 02/19/19 02/19/19 prednisone 10 mg PO DIRECTED PRN 02/19/19 02/19/19 sodium chloride [Saline Nasal] 2 spray INTRANASAL QID PRN 02/19/19 02/19/19 spironolactone 12.5 mg PO DAILY@0900 02/19/19 02/19/19 sucralfate [Carafate] 1 g PO QID PRN 02/19/19 02/19/19 tamoxifen 20 mg PO DAILY 02/19/19 02/19/19 triamcinolone acetonide [Nasacort] 1 spray INTRANASAL BID 02/19/19 02/19/19 warfarin 2.5 mg PO SUTUWEFRSA 02/19/19 02/19/19 warfarin 3.75 mg PO MOTH 02/19/19 02/19/19 Previous Rx's Medication Instructions Recorded Oxygen Home #1 ea 02/23/19 furosemide 40 mg PO DAILY #30 tab 02/23/19 levofloxacin 250 mg PO DAILY@1600 #3 tab 02/23/19 magnesium oxide 400 mg PO QAM #30 tab 02/23/19 potassium chloride 10 meq PO DAILY #30 tab 02/23/19 tramadol 25 - 50 mg PO Q4H PRN #30 tab 02/23/19 Results & Data (ED) Vital Signs Vital Signs - 24 hr 03/31/20 10:48 03/31/20 10:55 03/31/20 13:43 Temperature 37.1 C Temperature Source Oral Pulse Rate 61 Pulse Rate [Right Finger] 63 Pulse Rate from SpO2 Sensor Respiratory Rate 20 18 Respiratory Effort / Characteristics Non-Labored Spontaneous Non-Labored Spontaneous Respiratory Depth Normal Normal Respiratory Pattern Regular Blood Pressure 160/63 H Blood Pressure [Left Arm] 163/64 H Blood Pressure Mean 95 Blood Pressure Mean [Left Arm] 97 Blood Pressure Position Lying Blood Pressure Position [Left Arm] Lying Pulse Oximetry 99 98 95 Oxygen Delivery Method Room Air Room Air Room Air Sepsis Recent Fever Within 48 Hours No Sepsis New/Unexplained Change in Mental Status N/A Sepsis Action Taken by Nursing No Action Required 03/31/20 16:05 03/31/20 16:30 Temperature Temperature Source Pulse Rate 65 Pulse Rate [Right Finger] Pulse Rate from SpO2 Sensor 66 65 Respiratory Rate 16 Respiratory Effort / Characteristics Respiratory Depth Respiratory Pattern Blood Pressure 198/103 H Blood Pressure [Left Arm] Blood Pressure Mean 130 Blood Pressure Mean [Left Arm] Blood Pressure Position Blood Pressure Position [Left Arm] Pulse Oximetry 96 97 Oxygen Delivery Method Sepsis Recent Fever Within 48 Hours Sepsis New/Unexplained Change in Mental Status Sepsis Action Taken by Nursing Laboratory Data Result diagrams: 03/31/20 11:05 03/31/20 11:05 Lab Results 03/31/20 03/31/20 03/31/20 Range/Units 11:05 11:05 11:05 WBC 6.65 (4.8-10.8) K/uL RBC 3.65 L (4.2-5.4) M/uL Hgb 10.8 L (12.0-16.0) g/dL Hct 33.7 L (37-47) % MCV 92.3 (80-100) fL MCH 29.6 (25-34) pg MCHC 32.0 (32-36) g/dL RDW Std Deviation 55.5 H (36.4-46.3) fL RDW Coeff of Chrissy 16.4 H (11.5-14.5) % Plt Count 170 (130-400) K/uL MPV 10.2 (7.4-10.4) fL Immature Gran % (Auto) 0.5 % Neut % (Auto) 62.0 % Lymph % (Auto) 22.3 % [place] % (Auto) 10.7 % Eos % (Auto) 3.9 % Baso % (Auto) 0.6 % Neut # (Auto) 4.13 (1.4-6.5) K/uL Lymph # (Auto) 1.48 (1.2-3.4) K/uL [place] # (Auto) 0.71 H (0.11-0.59) K/uL Eos # (Auto) 0.26 (0-0.5) K/uL Baso # (Auto) 0.04 (0-0.2) K/uL Immature Gran # (Auto) 0.03 H (0.00-0.02) K/uL PT 22.1 H (9.0-12.0) Seconds INR 2.2 H (0.9-1.1) APTT 30.4 (21.0-31.0) Seconds PTT Ratio 1.1 Sodium 136 (136-145) mmol/L Potassium 4.5 (3.5-5.1) mmol/L Chloride 102 (98-107) mmol/L Carbon Dioxide 29 (21-32) mmol/L Anion Gap 5.0 (3-11) BUN 39 H (7-18) mg/dl Creatinine 1.67 H (0.6-1.2) mg/dl Est Cr Clr Drug Dosing 19.7 ml/min Est GFR ( Amer) 31.3 Est GFR (Non-Af Amer) 27.0 BUN/Creatinine Ratio 23.2 H (10-20) Glucose 105 H (70-99) mg/dl Calcium 9.6 (8.5-10.1) mg/dl Total Bilirubin 0.4 (0.2-1) mg/dl AST 18 (15-37) U/L ALT 18 (12-78) U/L Alkaline Phosphatase 48 (45-117) U/L Troponin I < 0.015 (0-0.045) ng/ml Total Protein 6.3 L (6.4-8.2) gm/dl Albumin 3.2 L (3.4-5.0) gm/dl Globulin 3.1 (2.5-4.0) gm/dl Albumin/Globulin Ratio 1.0 (0.9-2) Lipase 220 (73-393) U/L COVID-19 Eval Order SARS-CoV-2, RNA, NAAT (NEGATIVE) 03/31/20 03/31/20 Range/Units 16:07 16:07 WBC (4.8-10.8) K/uL RBC (4.2-5.4) M/uL Hgb (12.0-16.0) g/dL Hct (37-47) % MCV (80-100) fL MCH (25-34) pg MCHC (32-36) g/dL RDW Std Deviation (36.4-46.3) fL RDW Coeff of Chrissy (11.5-14.5) % Plt Count (130-400) K/uL MPV (7.4-10.4) fL Immature Gran % (Auto) % Neut % (Auto) % Lymph % (Auto) % [place] % (Auto) % Eos % (Auto) % Baso % (Auto) % Neut # (Auto) (1.4-6.5) K/uL Lymph # (Auto) (1.2-3.4) K/uL [place] # (Auto) (0.11-0.59) K/uL Eos # (Auto) (0-0.5) K/uL Baso # (Auto) (0-0.2) K/uL Immature Gran # (Auto) (0.00-0.02) K/uL PT (9.0-12.0) Seconds INR (0.9-1.1) APTT (21.0-31.0) Seconds PTT Ratio Sodium (136-145) mmol/L Potassium (3.5-5.1) mmol/L Chloride (98-107) mmol/L Carbon Dioxide (21-32) mmol/L Anion Gap (3-11) BUN (7-18) mg/dl Creatinine (0.6-1.2) mg/dl Est Cr Clr Drug Dosing ml/min Est GFR ( Amer) Est GFR (Non-Af Amer) BUN/Creatinine Ratio (10-20) Glucose (70-99) mg/dl Calcium (8.5-10.1) mg/dl Total Bilirubin (0.2-1) mg/dl AST (15-37) U/L ALT (12-78) U/L Alkaline Phosphatase (45-117) U/L Troponin I (0-0.045) ng/ml Total Protein (6.4-8.2) gm/dl Albumin (3.4-5.0) gm/dl Globulin (2.5-4.0) gm/dl Albumin/Globulin Ratio (0.9-2) Lipase (73-393) U/L COVID-19 Eval Order Covid19 [facility] SARS-CoV-2, RNA, NAAT NEGATIVE (NEGATIVE) Discharge Plan Visit Data Chief Complaint: Syncope Stated Complaint: Syncope x1 now weak ED Provider: Allen Song Discharge Problem: Syncope, Chest pain, Breath shortness Forms Stand Alone Forms: My [facility] Prescriptions Prescriptions: No Action amoxicillin 500 mg Capsule 500 mg PO BID PRN (Reason: Other) RF: 0 atorvastatin 40 mg Tablet 40 mg PO DAILY@1800 RF: 0 carvedilol [Coreg] 25 mg Tablet 12.5 mg PO BID RF: 0 carvedilol [Coreg] 6.25 mg Tablet 6.25 mg PO DAILY@1800 RF: 0 sucralfate [Carafate] 1 gram Tablet 1 g PO QID PRN (Reason: Acid Reflux) RF: 0 warfarin 2.5 mg Tablet 3.75 mg PO MOTH RF: 0 allopurinol 100 mg Tablet 200 mg PO DAILY RF: 0 spironolactone 25 mg Tablet 12.5 mg PO DAILY@0900 RF: 0 isosorbide mononitrate 120 mg Tablet Extended Release 24 Hr 120 mg PO HS@2200 RF: 0 prednisone 10 mg Tablets,Dose Pack 10 mg PO DIRECTED PRN (Reason: Other) RF: 0 calcitonin (salmon) 200 unit/actuation [place],Non-Aerosol 1 spray intranasal DAILY RF: 0 benzonatate 100 mg Capsule 100 mg PO TID PRN (Reason: Cough) RF: 0 budesonide 0.5 mg/2 mL Suspension For Nebulization 0.5 mg INHALATION BID RF: 0 levalbuterol HCl [Xopenex] 1.25 mg/3 mL Solution For Nebulization 1.25 mg INHALATION TID RF: 0 tamoxifen 20 mg Tablet 20 mg PO DAILY RF: 0 iron-vit B hvoa-Q-dst-liver ex Tablet 1 tab PO MOWEFR RF: 0 levothyroxine 150 mcg Capsule 150 mcg PO DAILY RF: 0 losartan 50 mg Tablet 50 mg PO HS@2200 RF: 0 aspirin [Aspirin Low Dose] 81 mg Tablet,Delayed Release (Dr/Ec) 81 mg PO DAILY RF: 0 pantoprazole [Protonix] 40 mg Tablet,Delayed Release (Dr/Ec) 40 mg PO BID RF: 0 nitroglycerin [Nitrostat] 0.4 mg Tablet, Sublingual 0.4 mg buccal DAILY PRN (Reason: Chest Pain) RF: 0 montelukast 10 mg Tablet 10 mg PO DAILY@1800 RF: 0 cholecalciferol (vitamin D3) [Vitamin D3] 1,000 unit Capsule 2,000 unit PO DAILY RF: 0 escitalopram oxalate [Lexapro] 10 mg Tablet 5 mg PO DAILY RF: 0 hydralazine 10 mg Tablet 10 mg PO BID PRN (Reason: HTN) RF: 0 fexofenadine 180 mg Tablet 180 mg PO DAILY RF: 0 calcium carbonate 600 mg calcium (1,500 mg) Tablet 1,200 mg PO DAILY@1800 RF: 0 warfarin 2.5 mg tablet 2.5 mg PO SUTUWEFRSA RF: 0 triamcinolone acetonide [Nasacort] 55 mcg Aerosol,[place] 1 spray INTRANASAL BID RF: 0 azelastine 137 mcg (0.1 %) Aerosol,[place] 1 spray INTRANASAL BID RF: 0 docusate sodium 100 mg Tablet 500 mg PO BID RF: 0 sodium chloride [Saline Nasal] 0.65 % Aerosol,[place] 2 spray INTRANASAL QID PRN (Reason: Nasal Congestion) RF: 0 Brovana 15 mcg/2 mL Solution For Nebulization 15 mcg INHALATION BID PRN (Reason: Shortness Of Breath) RF: 0 nystatin 100,000 unit/mL suspension 5 ml PO BID RF: 0 levofloxacin 250 mg Tablet 250 mg PO DAILY@1600 Qty: 3 RF: 0 tramadol 50 mg Tablet 25 - 50 mg PO Q4H PRN (Reason: severe pain) Qty: 30 RF: 0 furosemide 40 mg tablet 40 mg PO DAILY Qty: 30 RF: 1 potassium chloride 10 mEq tablet extended release 10 meq PO DAILY Qty: 30 RF: 1 magnesium oxide 400 mg (241.3 mg magnesium) Tablet 400 mg PO QAM Qty: 30 RF: 1 (DME) Oxygen Home Liters Per Minute See Dose Instructions .ROUTE .MEDSUPPLY Qty: 1 RF: 0 Discharge Problem: Syncope Qualifiers: Syncope type: unspecified Qualified Code(s): R55 - Syncope and collapse Chest pain Qualifiers: Chest pain type: unspecified Qualified Code(s): R07.9 - Chest pain, unspecified
--- NOTE | 2020-03-31 11:27 | XRay Report ---
XR chest 1V portable CLINICAL HISTORY: Atypical chest pain. COMPARISON STUDY: Chest radiograph February 22, 2019. Chest CT February 19, 2019. FINDINGS: Lung volumes are normal. There is no pneumothorax or pleural effusion. Cardiomegaly is unch anged. No evidence for pulmonary edema. The appearance of the chest is unchanged. IMPRESSION: No acute cardiopulmonary findings. No change in appearance of the chest. ACT 112: Negative or not required by law. Electronically signed by: Dayo Peña M.D. 03/31/2020 11:26 AM
[2020-03-31 11:31] LABS: Basophils # (auto) 0.04 K/uL (0-0.2); Basophils % (auto) 0.6 %; Eosinophils # (auto) 0.26 K/uL (0-0.5); Eosinophils % (auto) 3.9 %; Hematocrit (blood only) 33.7 % (37-47); Hemoglobin 10.8 g/dL (12.0-16.0); Immature Granulocytes # (auto) 0.03 K/uL (0.00-0.02); Immature Granulocytes % (auto) 0.5 %; Lymphocytes # (auto) 1.48 K/uL (1.2-3.4); Lymphocytes % (auto) 22.3 %; Mean Corpuscular Hemoglobin 29.6 pg (25-34); Mean Corpuscular Volume 92.3 fL (80-100); Mean Platelet Volume 10.2 fL (7.4-10.4); Monocytes # (auto) 0.71 K/uL (0.11-0.59); Monocytes % (auto) 10.7 %; Neutrophils # (auto) 4.13 K/uL (1.4-6.5); Platelet Count 170 K/uL (130-400); RDW Coefficient of Variation 16.4 % (11.5-14.5); RDW Standard Deviation 55.5 fL (36.4-46.3); Red Blood Count 3.65 M/uL (4.2-5.4); White Blood Count 6.65 K/uL (4.8-10.8)
[2020-03-31 11:47] LABS: INR 2.2 (0.9-1.1); Partial Thromboplastin Ratio 1.1; Partial Thromboplastin Time 30.4 Seconds (21.0-31.0); Prothrombin Time 22.1 Seconds (9.0-12.0)
[2020-03-31 11:52] LABS: Blood Urea Nitrogen 39 mg/dl (7-18); Carbon Dioxide 29 mmol/L (21-32); Chloride 102 mmol/L (98-107); Est GFR (African American) 31.3; Potassium 4.5 mmol/L (3.5-5.1); Sodium 136 mmol/L (136-145)
[2020-03-31 11:53] LABS: Albumin Level 3.2 gm/dl (3.4-5.0); Aspartate Aminotransferase 18 U/L (15-37); BUN Creatinine Ratio 23.2 (10-20); Calcium 9.6 mg/dl (8.5-10.1); Creatinine Clr Calc Pharmacy 19.7 ml/min; Glucose 105 mg/dl (70-99); Lipase 220 U/L (73-393)
[2020-03-31 12:05] LABS: Alanine Aminotransferase 18 U/L (12-78); Alkaline Phosphatase 48 U/L (45-117); Bilirubin,Total 0.4 mg/dl (0.2-1); Globulin 3.1 gm/dl (2.5-4.0); Total Protein 6.3 gm/dl (6.4-8.2); Troponin I < 0.015 ng/ml (0-0.045)
--- NOTE | 2020-03-31 12:33 | CT Scan Report ---
CT SCAN OF THE BRAIN WITHOUT IV CONTRAST CLINICAL HISTORY: Fall. COMPARISON STUDY: CT of the brain dated 03/10/2017. TECHNIQUE: Unenhanced axial CT scan of the brain is performed from the vertex to the skull base. A do se lowering technique was utilized adhering to the principles of ALARA. CT DOSE: 690.05 mGycm FINDINGS: Brain parenchyma: There are age-related involutional changes noting minimal subcortical and perivent ricular microangiopathic change. There is no hemorrhage, mass effect, or evidence of acute territoria l ischemia by CT criteria. Alejandro-white matter differentiation is preserved. No extra-axial fluid colle ction is seen. Ventricles, sulci, cisterns: Prominent secondary to involutional change. Intracranial vasculature: There is atherosclerotic calcification of the cavernous carotid and vertebr al arteries. Calvarium: The skeletal structures are osteopenic. No depressed calvarial fracture is identified. Sinuses and mastoids: The visualized paranasal sinuses are clear. The mastoid air cells are well pneu matized. Orbits: The bony orbits are grossly intact. There are bilateral ocular lens implants. IMPRESSION: There is no hemorrhage, mass effect, or evidence of acute territorial ischemia by CT melba yuan. ACT 112: Negative or not required by law. Electronically signed by: Abrahan Romero M.D. 03/31/2020 12:31 PM
[2020-03-31] MEDS ORDERED: ACETAMINOPHEN 325 MG TAB PO PRN (13:36)
[2020-03-31] MEDS ORDERED: ONDANSETRON INJ 2 MG/ML 2 ML VIAL IV PRN (13:36)
[2020-03-31] MEDS ORDERED: NITROGLYCERIN SL 0.4 MG/TAB TAB SL PRN (13:36)
[2020-03-31] MEDS ORDERED: POLYETHYLENE (MIRALAX) 17 GM PACK PO PRN (13:36)
--- NOTE | 2020-03-31 13:39 | History & Physical Report ---
Date of Service March 31, 2020 Assessment & Plan (1) Syncope: Patient's presentation most likely due to vasovagal episode. Daughter reports, patient keeps the bathroom very warm using heater, and took bath with hot water, Transient episode of lightheadedness, no loss of consciousness or fall, patient recovered spontaneously, without any confusion no headache no weakness or paresthesia Had transient hypotensive episode, followed by bowel movement In the ER patient remains completely asymptomatic, stable vitals, Able to ambulate to the restroom with daughter's assistance, had no complaint of dizzy spells or lightheadedness CT head noncontrast, no acute change Twelve-lead EKG normal sinus rhythm, no evidence of ischemia or arrhythmia Patient will be observed overnight in telemetry unit Check orthostatic vitals PT OT evaluation Carotid ultrasound to rule out carotid stenosis Resting echocardiogram for evaluation of any valvular heart disease (2) CKD (chronic kidney disease), stage III: Creatinine at approximate baseline, follows with [facility] nephrology Dr. Elysia Hernandez Chronic hyponatremia: Sodium level normal Patient is approximately 3445-9701 mL a day fluid restriction at home-which is continued Repeat BMP in a.m. (3) Chronic diastolic CHF (congestive heart failure): Stable volume status Chest ray shows no effusion Continue home medications Echo in a.m. to assess LV function Chronic asthma/COPD: No acute symptoms, no wheeze, no hypoxia no complaint of shortness of breath Has chronic nonproductive cough, no infiltrate noted on chest x-ray, no fever or chills, no known COVID-19 exposure Continue outpatient inhalers History of coronary artery disease: No complaint of chest pain: Continue outpatient medications Imdur/Coreg, aspirin History of paroxysmal A. fib: Rate controlled, in normal sinus rhythm now Continue home medications of beta-ced, Coumadin(INR therapeutic) CODE STATUS: Full code DVT prophylaxis: On Coumadin INR therapeutic Disposition: Lives at home with daughter, fairly independent in her ADLs, PT OT evaluation prior to discharge, social service consulted for discharge planning Plan of care discussed with patient's daughter present at bedside, she is comfortable and agreeable with treatment plan. Daughter : Jolie Moran phone number #[phone], requests update from attending. History of Present Illness Chief Complaint: Passing out/dizzy spell Primary Care Provider: Cate avila MD This is a 89-year-old female with medical history of hypertension, CKD stage III, chronic hyponatremia, history of coronary artery disease, chronic diastolic heart failure, COPD/asthma prior history of breast cancer history of paroxysmal on Coumadin anticoagulation Presents to ER with episode of syncope . Patient lives with her daughter, who was helping her in the bath/shower around 9 AM in the morning Completing her bath, patient felt very short of breath, as she bent down to apply lotion on her legs-her shortness of breath was worsened, she felt very dizzy and lightheaded, managed to to steady herself holding on to the sink. Her daughter noticed patient was very pale, unresponsive,: Unable to answer questions, appeared to be dazed, very short of breath No episode of nausea vomiting, no diaphoresis Daughter helped the patient to sit down on the toilet seat, patient remained unresponsive for 10 seconds, then gradually able to answer question, Patient felt very weak and wiped out, later had a bowel movement. Daughter reports she took patient's vital while she was sitting : Her SBP was very low in the 70s, heart rate was high, after few minutes of resting she rechecked her blood pressure which improved to 130s, heart rate was in low 70s In the ER patient is alert and oriented, no complaint of dizzy spell or lightheadedness, vitals stable, Lab works unremarkable CT head noncontrast: No acute intracranial abnormality, chest x-ray shows no acute cardiopulmonary disease. Patient was at her baseline health in last few days, no complaint of increased shortness of breath or dyspnea on exertion, no fever or chills, has chronic baseline cough for COPD-nothing out of ordinary, Had normal appetite, no abdominal pain, no nausea vomiting or diarrhea. She will be observed in telemetry overnight for possible vasovagal syncope. 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 sulfamethoxazole Allergy Mild RASH Verified 03/31/20 14:00 trimethoprim Allergy Mild RASH Verified 03/31/20 14:00 amlodipine Allergy Unknown Unverified 03/31/20 14:00 amoxicillin Allergy Rash Unverified 03/31/20 14:00 azithromycin Allergy Unknown Unverified 03/31/20 14:00 cefuroxime [From Ceftin] Allergy Diarrhea Unverified 03/31/20 14:00 ipratropium Allergy Unknown Unverified 03/31/20 14:00 Sulfa (Sulfonamide Allergy Hives Unverified 03/31/20 14:00 Antibiotics) Home Medications Medication Instructions Recorded Confirmed Type Brovana 15 mcg INHALATION BID PRN 02/19/19 02/19/19 History allopurinol 200 mg PO DAILY 02/19/19 02/19/19 History amoxicillin 500 mg PO BID PRN 02/19/19 02/19/19 History aspirin [Aspirin Low Dose] 81 mg PO DAILY 02/19/19 02/19/19 History atorvastatin 40 mg PO DAILY@1800 02/19/19 02/19/19 History azelastine 1 spray INTRANASAL BID 02/19/19 02/19/19 History benzonatate 100 mg PO TID PRN 02/19/19 02/19/19 History budesonide 0.5 mg INHALATION BID 02/19/19 02/19/19 History calcitonin (salmon) 1 spray INTRANASAL DAILY 02/19/19 02/19/19 History calcium carbonate 1,200 mg PO DAILY@1800 02/19/19 02/19/19 History carvedilol [Coreg] 6.25 mg PO DAILY@1800 02/19/19 02/19/19 History carvedilol [Coreg] 12.5 mg PO BID 02/19/19 02/19/19 History cholecalciferol (vitamin D3) 2,000 unit PO DAILY 02/19/19 02/19/19 History [Vitamin D3] docusate sodium 500 mg PO BID 02/19/19 02/19/19 History escitalopram oxalate [Lexapro] 5 mg PO DAILY 02/19/19 02/19/19 History fexofenadine 180 mg PO DAILY 02/19/19 02/19/19 History hydralazine 10 mg PO BID PRN 02/19/19 02/19/19 History iron-vit B wdar-F-ial-liver ex 1 tab PO MOWEFR 10/08/19 10/08/19 History isosorbide mononitrate 120 mg PO HS@2200 02/19/19 02/19/19 History levalbuterol HCl [Xopenex] 1.25 mg INHALATION TID 02/19/19 02/19/19 History levothyroxine 150 mcg PO DAILY 02/19/19 02/19/19 History losartan 50 mg PO HS@2200 02/19/19 02/19/19 History montelukast 10 mg PO DAILY@1800 02/19/19 02/19/19 History nitroglycerin [Nitrostat] 0.4 mg BUCCAL DAILY PRN 02/19/19 02/19/19 History nystatin 5 ml PO BID 02/19/19 02/19/19 History pantoprazole [Protonix] 40 mg PO BID 02/19/19 02/19/19 History prednisone 10 mg PO DIRECTED PRN 02/19/19 02/19/19 History sodium chloride [Saline Nasal] 2 spray INTRANASAL QID PRN 02/19/19 02/19/19 History spironolactone 12.5 mg PO DAILY@0900 02/19/19 02/19/19 History sucralfate [Carafate] 1 g PO QID PRN 02/19/19 02/19/19 History tamoxifen 20 mg PO DAILY 02/19/19 02/19/19 History triamcinolone acetonide [Nasacort] 1 spray INTRANASAL BID 02/19/19 02/19/19 History warfarin 2.5 mg PO SUTUWEFRSA 02/19/19 02/19/19 History warfarin 3.75 mg PO MOTH 02/19/19 02/19/19 History Oxygen Home #1 ea 02/23/19 Rx furosemide 40 mg PO DAILY #30 tab 02/23/19 Rx levofloxacin 250 mg PO DAILY@1600 #3 tab 02/23/19 Rx magnesium oxide 400 mg PO QAM #30 tab 02/23/19 Rx potassium chloride 10 meq PO DAILY #30 tab 02/23/19 Rx tramadol 25 - 50 mg PO Q4H PRN #30 tab 02/23/19 Rx Past Med/Surg History Medical History (Updated 03/31/20 @ 15:12 by Autumn Taylor MD) Anticoagulated on Coumadin Anxiety Asthma, moderate persistent Chronic diastolic CHF (congestive heart failure) CKD (chronic kidney disease), stage III Dyslipidemia GERD (gastroesophageal reflux disease) Gout Heart disease "nonobstructive disease per cath 2011" History of breast cancer Hypothyroidism (acquired) "s/p thyroidectomy and radioiodine therapy for cancer treatment" Hysterectomy (02/22/13) IBS (irritable bowel syndrome) Labile hypertension Osteoporosis (02/22/13) PAF (paroxysmal atrial fibrillation) 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 Father , Passed age 50 of [place] No problems noted. Brother Lung fibrosis Brother , Passed age 63 of allergic reaction to antibiotics No problems noted. Sister , Passed age 83 of "electrolyte disturbances" DCIS (ductal carcinoma in situ) Sister , Passed age 84 from post surgical complications No problems noted. Sister No problems noted. Daughter No problems noted. Daughter No problems noted. Son No problems noted. 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) Feels Safe at Home: Yes caffeine: No during the past year weight has: remained stable Assistive Devices: Glasses Review of Systems Review of Systems: All systems reviewed & are unremarkable except as noted in HPI & below Constitutional: + weakness Passing out Respiratory: + cough (Chronic dry cough), + dyspnea and + dyspnea on exertion; no wheezing Cardiovascular: + dyspnea, + dyspnea at rest, + lightheadedness and + syncope Gastrointestinal: no abdominal pain, no nausea and no vomiting Neurologic: + generalized weakness, + dizziness and + syncope Physical Exam Constitutional: WD/WN, vitals as above (Elderly female, comfortable) + frail appearing; no acute distress Eyes: + anicteric sclerae ENMT: external ear and nose normal, oropharynx normal Neck: trachea midline, no thyromegaly Respiratory: normal respiratory effort, lungs clear to auscultation Cardiovascular: Rate/Rhythm: regular rate and regular rhythm Extremities: + edema (Trace bilateral lower extremity edema) Gastrointestinal (Abdomen): Percussion/Palpation: abdomen soft; abdomen nontender Musculoskeletal: no cyanosis or clubbing, extremities motor strength 5/5 Skin: no rashes, warm and dry Neurologic: PERRL, EOMI, accommodation nl, no face palsy, no dysarthria no focal motor deficits and not confused Psychiatric: A+Ox3, euthymic affect Results & Data Results & Data ([facility]) Vital Signs (Past 12 Hours) Vital Signs Temp Pulse Resp BP Pulse Ox 03/31/20 10:55 98 03/31/20 10:48 37.1 C 61 20 160/63 H 99 Diagnostic Findings Portable chest x-ray: No acute cardiopulmonary findings. No change in appearance of the chest. CT head noncontrast: There is no hemorrhage, mass-effect, or evidence of acute territorial ischemia by CT criteria. Code Status & VTE Plan Code Status Full code VTE Prophylaxis Plan VTE Prophylaxis will be ordered: No Reason for no VTE drug order: Treatment not tolerated (Patient is anticoagulated with Coumadin, INR therapeutic) Reason for no VTE mechanical prophylaxis: Treatment not indicated (Patient is anticoagulated with Coumadin, INR therapeutic) (1) Syncope Syncope type: vasovagal syncope Qualified Code(s): R55 - Syncope and collapse (2) CKD (chronic kidney disease), stage III Chronic kidney disease stage 3 subtype: stage 3b (GFR 30-44) Qualified Code(s): N18.32 - Chronic kidney disease, stage 3b
--- NOTE | 2020-03-31 15:43 | Ultrasound Report ---
BILATERAL CAROTID DOPPLER STUDY HISTORY: syncope COMPARISON: Carotid Doppler 04/03/2008. TECHNIQUE: Real-time, grayscale, and color Doppler sonography of the carotid arteries was performed. Imaging reviewed in the transverse and longitudinal planes. All measurements were calculated based on NASCET criteria. FINDINGS: Antegrade flow is seen in the bilateral vertebral arteries. The brachial pressures are hemodynamically similar. Mild calcified plaque within the left carotid bifurcation. The peak systolic velocity within the right ICA is 74 cm/s. The right systolic ratio is 0.9. The peak systolic velocity within the left ICA is 70 cm/s. The left systolic ratio is 1.8. IMPRESSION: No hemodynamically significant stenosis seen within the carotid arteries. ACT 112: Negative or not required by law. Electronically signed by: Georges Toro M.D. 03/31/2020 3:41 PM
--- NOTE | 2020-03-31 16:57 | Electrocardiogram Report ---
Test Reason : Blood Pressure : / mmHG Vent. Rate : 063 BPM Atrial Rate : 063 BPM P-R Int : 284 ms QRS Dur : 078 ms QT Int : 404 ms P-R-T Axes : 003 -39 052 degrees QTc Int : 413 ms Poor data quality, interpretation may be adversely affected Sinus rhythm with 1st degree A-V block Left axis deviation Low voltage QRS Cannot rule out Anterior infarct , age undetermined Abnormal ECG When compared with ECG of 19-FEB-2019 11:20, Nonspecific T wave abnormality no longer evident in Inferior leads Confirmed by Juan Miguel Crawley ([id number]) on 03/31/2020 4:57:00 PM Referred By: Confirmed By:Juan Miguel Crawley
[2020-03-31] MEDS ORDERED: WARFARIN SOD 2.5 MG TAB PO SCH (19:00)
[2020-03-31] MEDS ORDERED: MONTELUKAST SODIUM 10 MG TABLET PO SCH (19:00)
[2020-03-31] MEDS ORDERED: DOCUSATE SODIUM 100 MG CAP PO SCH (19:00)
[2020-03-31] MEDS ORDERED: CALCIUM 600MG + VIT D 400 IU TAB PO SCH (19:00)
[2020-03-31] MEDS: LEVALBUTEROL HCL 1.25 MG/3 ML NEB INH SCH (20:02)
[2020-03-31] MEDS: BUDESONIDE 0.5 MG/2 ML VIAL (PULMICORT) INH SCH (20:02)
[2020-03-31] MEDS ORDERED: carvediloL 6.25 MG TAB PO SCH (20:15)
[2020-03-31] MEDS: ATORVASTATIN 40 MG TAB PO SCH ×2 (20:25→20:31)
[2020-03-31] MEDS: PANTOprazole 40 MG TAB PO SCH (20:32)
[2020-03-31] MEDS ORDERED: ISOSORBIDE MONO EXTENDED REL 30 MG TABCR PO SCH (21:00)
[2020-03-31] MEDS ORDERED: LOSARTAN POTASSIUM 50 MG TAB PO SCH (21:00)
[2020-03-31] MEDS: carvediloL 12.5 MG TAB PO SCH (22:36)
[2020-03-31] MEDS: TRIAMCINOLONE ACET NASAL SPRAY 10.8ML BTL NAE SCH (22:38)
[2020-03-31] MEDS: SODIUM CHLORIDE 0.65% NA SOLN 45 ML (OCEAN) NAE SCH (22:43)
[2020-04-01] MEDS: carvediloL 12.5 MG TAB PO SCH (05:22)
[2020-04-01] MEDS ORDERED: LEVOTHYROXINE SODIUM 150 MCG TABLET PO SCH (06:00)
[2020-04-01] MEDS: LEVALBUTEROL HCL 1.25 MG/3 ML NEB INH SCH ×2 (07:12→13:14)
[2020-04-01] MEDS: BUDESONIDE 0.5 MG/2 ML VIAL (PULMICORT) INH SCH (07:13)
[2020-04-01] MEDS: SODIUM CHLORIDE 0.65% NA SOLN 45 ML (OCEAN) NAE SCH (08:01)
[2020-04-01] MEDS: TRIAMCINOLONE ACET NASAL SPRAY 10.8ML BTL NAE SCH (08:02)
[2020-04-01] MEDS: PANTOprazole 40 MG TAB PO SCH (08:04)
[2020-04-01 08:48] LABS: INR 2.2 (0.9-1.1); Prothrombin Time 21.9 Seconds (9.0-12.0)
[2020-04-01] MEDS ORDERED: SPIRONOLACTONE 12.5 MG TAB PO SCH (09:00)
[2020-04-01] MEDS ORDERED: ESCITALOPRAM OXALATE 10 MG TAB PO SCH (09:00)
[2020-04-01] MEDS ORDERED: FEXOFENADINE HCL 180 MG TAB PO SCH (09:00)
[2020-04-01] MEDS ORDERED: CHOLECALCIFEROL 1,000 UNITS 25 MCG TAB PO SCH (09:00)
[2020-04-01] MEDS ORDERED: FUROSEMIDE 40 MG TAB PO SCH (09:00)
[2020-04-01] MEDS ORDERED: ASPIRIN 81 MG ECTAB PO SCH (09:00)
[2020-04-01] MEDS ORDERED: MAGNESIUM OXIDE 400 MG TAB PO SCH (09:00)
[2020-04-01] MEDS ORDERED: allopurinoL 100 MG TAB PO SCH (09:00)
[2020-04-01] MEDS ORDERED: POTASSIUM CHLORIDE 10 MEQ TABCR PO SCH (09:00)
[2020-04-01] MEDS ORDERED: TAMOXIFEN CITRATE 10 MG TABLET PO SCH (09:00)
[2020-04-01 09:02] LABS: BUN Creatinine Ratio 20.1 (10-20); Calcium 10.2 mg/dl (8.5-10.1); Creatinine Clr Calc Pharmacy 20.8 ml/min; Est GFR (African American) 32.3; Est GFR (Non-African American) 27.8
--- NOTE | 2020-04-01 09:26 | Hospitalist Progress Note ---
Date of Service April 01, 2020 Assessment & Plan (1) Syncope: Patient's presentation most likely due to vasovagal episode. Daughter reports, patient keeps the bathroom very warm using heater, and took bath with hot water, Transient episode of lightheadedness, no loss of consciousness or fall, patient recovered spontaneously, without any confusion no headache no weakness or paresthesia Had transient hypotensive episode, followed by bowel movement In the ER patient remained completely asymptomatic, stable vitals, Able to ambulate to the restroom with daughter's assistance, had no complaint of dizzy spells or lightheadedness CT head noncontrast, no acute change Twelve-lead EKG normal sinus rhythm, no evidence of ischemia or arrhythmia Patient observed overnight in telemetry unit -telemetry reviewed, normal sinus rhythm, some PACs Check orthostatic vitals - normal PT OT evaluation -recommend discharge home with daughter assist. Carotid ultrasound to rule out carotid stenosis - no significant stenosis Resting echocardiogram for evaluation of any valvular heart disease - normal left ventricular wall thickness. LV wall motion is normal. EF 55 to 60%. Aortic valve sclerosis mild, without significant aortic valvular stenosis. Grade 1 diastolic dysfunction. (2) CKD (chronic kidney disease), stage III: Creatinine at approximate baseline, follows with [facility] nephrology Dr. Elysia Hernandez Chronic hyponatremia: Sodium level normal Patient is approximately 7463-8656 mL a day fluid restriction at home-which is continued (3) Chronic diastolic CHF (congestive heart failure): Stable volume status Chest ray shows no effusion Continue home medications Echo in a.m. to assess LV function, as above Chronic asthma/COPD: No acute symptoms, no wheeze, no hypoxia no complaint of shortness of breath Has chronic nonproductive cough, no infiltrate noted on chest x-ray, no fever or chills, no known COVID-19 exposure Continue outpatient inhalers History of coronary artery disease: No complaint of chest pain: Continue outpatient medications Imdur/Coreg, aspirin History of paroxysmal A. fib: Rate controlled, in normal sinus rhythm now Continue home medications of beta-ced, Coumadin(INR therapeutic) CODE STATUS: Full code DVT prophylaxis: On Coumadin INR therapeutic Disposition: Lives at home with daughter, fairly independent in her ADLs, PT OT evaluation obtained, recommend to return home with daughter's assistance. Follow-up with primary care provider, appointment already scheduled. Daughter : Jolie Moran phone number #[phone] Admission and Anticipated Discharge Date Admission Date: March 31, 2020 Subjective Pt is feeling well today, denies any dizziness, lightheadedness. Reports she has been walking today w/o any issues. She is inquiring about going home. Denies any chest pain. reports some chronic shortness of breath w/ exertion, but currently feels well. Review of Systems Review of Systems: All systems reviewed & are unremarkable except as noted in HPI & below Constitutional: no fever and no chills Respiratory: no cough and no dyspnea Cardiovascular: no chest pain and no palpitations Gastrointestinal: no abdominal pain, no nausea and no vomiting Physical Exam Physical Exam: Constitutional: WD/WN, vitals as above (Elderly female, comfortable) + frail appearing; no acute distress Eyes: EOMI, + anicteric sclerae ENMT: external ear and nose normal, oropharynx normal Neck: trachea midline, no thyromegaly Respiratory: normal respiratory effort, lungs clear to auscultation Cardiovascular: Rate/Rhythm: regular rate and regular rhythm Extremities: + edema (Trace bilateral lower extremity edema) Gastrointestinal (Abdomen): Percussion/Palpation: abdomen soft; abdomen nontender, + bowel sounds Musculoskeletal: no cyanosis or clubbing, extremities motor strength 5/5 Skin: no rashes, warm and dry Neurologic: PERRL, EOMI, no face palsy, no dysarthria no focal motor deficits and not confused Psychiatric: A+Ox3, euthymic affect Results & Data Results & Data ([facility]) Vital Signs (Past 12 Hours) Vital Signs Temp Pulse Pulse Resp BP BP Pulse Ox 04/01/20 08:05 36.4 C L 61 19 150/75 H 94 04/01/20 07:13 60 16 93 04/01/20 02:58 36.4 C L 63 18 142/86 H 96 04/01/20 02:02 64 03/31/20 23:39 36.6 C 65 18 132/80 95 03/31/20 22:32 66 166/66 H Laboratory Results 04/01/20 04/01/20 03/31/20 Range/Units 08:25 08:25 16:07 WBC (4.8-10.8) K/uL RBC (4.2-5.4) M/uL Hgb (12.0-16.0) g/dL Hct (37-47) % MCV (80-100) fL MCH (25-34) pg MCHC (32-36) g/dL RDW Std Deviation (36.4-46.3) fL RDW Coeff of Chrissy (11.5-14.5) % Plt Count (130-400) K/uL MPV (7.4-10.4) fL Immature Gran % (Auto) % Neut % (Auto) % Lymph % (Auto) % Geary % (Auto) % Eos % (Auto) % Baso % (Auto) % Neut # (Auto) (1.4-6.5) K/uL Lymph # (Auto) (1.2-3.4) K/uL Geary # (Auto) (0.11-0.59) K/uL Eos # (Auto) (0-0.5) K/uL Baso # (Auto) (0-0.2) K/uL Immature Gran # (Auto) (0.00-0.02) K/uL PT 21.9 H (9.0-12.0) Seconds INR 2.2 H (0.9-1.1) APTT (21.0-31.0) Seconds PTT Ratio Sodium 135 L (136-145) mmol/L Potassium 4.0 (3.5-5.1) mmol/L Chloride 100 (98-107) mmol/L Carbon Dioxide 30 (21-32) mmol/L Anion Gap 5.0 (3-11) BUN 33 H (7-18) mg/dl Creatinine 1.63 H (0.6-1.2) mg/dl Est Cr Clr Drug Dosing 20.8 ml/min Est GFR ( Amer) 32.3 Est GFR (Non-Af Amer) 27.8 BUN/Creatinine Ratio 20.1 H (10-20) Glucose 142 H (70-99) mg/dl Calcium 10.2 H (8.5-10.1) mg/dl Total Bilirubin (0.2-1) mg/dl AST (15-37) U/L ALT (12-78) U/L Alkaline Phosphatase (45-117) U/L Troponin I (0-0.045) ng/ml Total Protein (6.4-8.2) gm/dl Albumin (3.4-5.0) gm/dl Globulin (2.5-4.0) gm/dl Albumin/Globulin Ratio (0.9-2) Lipase (73-393) U/L TSH (0.300-4.500) uIu/ml COVID-19 Eval Order SARS-CoV-2, RNA, NAAT NEGATIVE (NEGATIVE) 03/31/20 03/31/20 03/31/20 Range/Units 16:07 11:05 11:05 WBC (4.8-10.8) K/uL RBC (4.2-5.4) M/uL Hgb (12.0-16.0) g/dL Hct (37-47) % MCV (80-100) fL MCH (25-34) pg MCHC (32-36) g/dL RDW Std Deviation (36.4-46.3) fL RDW Coeff of Chrissy (11.5-14.5) % Plt Count (130-400) K/uL MPV (7.4-10.4) fL Immature Gran % (Auto) % Neut % (Auto) % Lymph % (Auto) % Geary % (Auto) % Eos % (Auto) % Baso % (Auto) % Neut # (Auto) (1.4-6.5) K/uL Lymph # (Auto) (1.2-3.4) K/uL Geary # (Auto) (0.11-0.59) K/uL Eos # (Auto) (0-0.5) K/uL Baso # (Auto) (0-0.2) K/uL Immature Gran # (Auto) (0.00-0.02) K/uL PT 22.1 H (9.0-12.0) Seconds INR 2.2 H (0.9-1.1) APTT 30.4 (21.0-31.0) Seconds PTT Ratio 1.1 Sodium 136 (136-145) mmol/L Potassium 4.5 (3.5-5.1) mmol/L Chloride 102 (98-107) mmol/L Carbon Dioxide 29 (21-32) mmol/L Anion Gap 5.0 (3-11) BUN 39 H (7-18) mg/dl Creatinine 1.67 H (0.6-1.2) mg/dl Est Cr Clr Drug Dosing 19.7 ml/min Est GFR ( Amer) 31.3 Est GFR (Non-Af Amer) 27.0 BUN/Creatinine Ratio 23.2 H (10-20) Glucose 105 H (70-99) mg/dl Calcium 9.6 (8.5-10.1) mg/dl Total Bilirubin 0.4 (0.2-1) mg/dl AST 18 (15-37) U/L ALT 18 (12-78) U/L Alkaline Phosphatase 48 (45-117) U/L Troponin I < 0.015 (0-0.045) ng/ml Total Protein 6.3 L (6.4-8.2) gm/dl Albumin 3.2 L (3.4-5.0) gm/dl Globulin 3.1 (2.5-4.0) gm/dl Albumin/Globulin Ratio 1.0 (0.9-2) Lipase 220 (73-393) U/L TSH (0.300-4.500) uIu/ml COVID-19 Eval [facility] SARS-CoV-2, RNA, NAAT (NEGATIVE) 03/31/20 03/31/20 Range/Units 11:05 10:48 WBC 6.65 (4.8-10.8) K/uL RBC 3.65 L (4.2-5.4) M/uL Hgb 10.8 L (12.0-16.0) g/dL Hct 33.7 L (37-47) % MCV 92.3 (80-100) fL MCH 29.6 (25-34) pg MCHC 32.0 (32-36) g/dL RDW Std Deviation 55.5 H (36.4-46.3) fL RDW Coeff of Chrissy 16.4 H (11.5-14.5) % Plt Count 170 (130-400) K/uL MPV 10.2 (7.4-10.4) fL Immature Gran % (Auto) 0.5 % Neut % (Auto) 62.0 % Lymph % (Auto) 22.3 % Geary % (Auto) 10.7 % Eos % (Auto) 3.9 % Baso % (Auto) 0.6 % Neut # (Auto) 4.13 (1.4-6.5) K/uL Lymph # (Auto) 1.48 (1.2-3.4) K/uL Geary # (Auto) 0.71 H (0.11-0.59) K/uL Eos # (Auto) 0.26 (0-0.5) K/uL Baso # (Auto) 0.04 (0-0.2) K/uL Immature Gran # (Auto) 0.03 H (0.00-0.02) K/uL PT (9.0-12.0) Seconds INR (0.9-1.1) APTT (21.0-31.0) Seconds PTT Ratio Sodium (136-145) mmol/L Potassium (3.5-5.1) mmol/L Chloride (98-107) mmol/L Carbon Dioxide (21-32) mmol/L Anion Gap (3-11) BUN (7-18) mg/dl Creatinine (0.6-1.2) mg/dl Est Cr Clr Drug Dosing ml/min Est GFR ( Amer) Est GFR (Non-Af Amer) BUN/Creatinine Ratio (10-20) Glucose (70-99) mg/dl Calcium (8.5-10.1) mg/dl Total Bilirubin (0.2-1) mg/dl AST (15-37) U/L ALT (12-78) U/L Alkaline Phosphatase (45-117) U/L Troponin I (0-0.045) ng/ml Total Protein (6.4-8.2) gm/dl Albumin (3.4-5.0) gm/dl Globulin (2.5-4.0) gm/dl Albumin/Globulin Ratio (0.9-2) Lipase (73-393) U/L TSH 2.910 (0.300-4.500) uIu/ml COVID-19 Eval Order SARS-CoV-2, RNA, NAAT (NEGATIVE) Medications Administered Current Inpatient Medications Acetaminophen (Acetaminophen 325 Mg Tab) 650 mg PO Q4H PRN PRN Reason: Pain or Fever Stop: 04/30/20 13:35 Allopurinol (Allopurinol 100 Mg Tab) 200 mg PO DAILY [facility] Stop: 05/01/20 08:59 Last Admin: 04/01/20 08:03 Dose: 200 mg Documented by: Aspirin (Aspirin 81 Mg Ectab) 81 mg PO DAILY [facility] Stop: 05/01/20 08:59 Last Admin: 04/01/20 08:02 Dose: 81 mg Documented by: Atorvastatin Calcium (Atorvastatin 40 Mg Tab) 40 mg PO DAILY@1800 [facility] Stop: 04/30/20 18:59 Last Admin: 03/31/20 20:31 Dose: 40 mg Documented by: Budesonide (Budesonide 0.5 Mg/2 Ml Vial (Pulmicort)) 0.5 mg INH BIDR [facility] Stop: 04/30/20 18:59 Last Admin: 04/01/20 07:13 Dose: 0.5 mg Documented by: Carvedilol (Carvedilol 12.5 Mg Tab) 12.5 mg PO BID@0600,1800 [facility] Stop: 04/30/20 20:14 Last Admin: 04/01/20 05:22 Dose: 12.5 mg Documented by: Carvedilol (Carvedilol 6.25 Mg Tab) 6.25 mg PO DAILY@1800 [facility] Stop: 04/30/20 20:14 Last Admin: 03/31/20 22:36 Dose: 6.25 mg Documented by: Docusate Sodium (Docusate Sodium 100 Mg Cap) 100 mg PO DAILY@1800 [facility] Stop: 04/30/20 18:59 Last Admin: 03/31/20 20:26 Dose: 100 mg Documented by: Escitalopram Oxalate (Escitalopram Oxalate 10 Mg Tab) 5 mg PO DAILY [facility] Stop: 05/01/20 08:59 Last Admin: 04/01/20 08:03 Dose: 5 mg Documented by: Fexofenadine HCl (Fexofenadine Hcl 180 Mg Tab) 180 mg PO DAILY [facility] Stop: 05/01/20 08:59 Last Admin: 04/01/20 08:03 Dose: 180 mg Documented by: Furosemide (Furosemide 40 Mg Tab) 40 mg PO DAILY [facility] Stop: 05/01/20 08:59 Last Admin: 04/01/20 08:04 Dose: 40 mg Documented by: Isosorbide Mononitrate (Isosorbide Geary Extended Rel 30 Mg Tabcr) 30 mg PO PM [facility] Stop: 04/30/20 20:59 Last Admin: 03/31/20 22:37 Dose: 30 mg Documented by: Levalbuterol HCl (Levalbuterol Hcl 1.25 Mg/3 Ml Neb) 1.25 mg INH TIDR [facility] Stop: 04/30/20 18:59 Last Admin: 04/01/20 07:12 Dose: 1.25 mg Documented by: Levothyroxine Sodium (Levothyroxine Sodium 150 Mcg Tablet) 150 mcg PO DAILY@0600 [facility] Stop: 05/01/20 05:59 Last Admin: 04/01/20 05:22 Dose: 150 mcg Documented by: Losartan Potassium (Losartan Potassium 50 Mg Tab) 50 mg PO PM [facility] Stop: 04/30/20 20:59 Last Admin: 03/31/20 22:38 Dose: 50 mg Documented by: Magnesium Oxide (Magnesium Oxide 400 Mg Tab) 400 mg PO QAM [facility] Stop: 05/01/20 08:59 Last Admin: 04/01/20 08:04 Dose: 400 mg Documented by: Miscellaneous (Azelastine 137 Mcg (0.1 %): Order Awaiting Action) 1 ea N/A QS [facility] Stop: 05/01/20 00:00 Last Admin: 04/01/20 07:58 Dose: Not Given Documented by: Montelukast Sodium (Montelukast Sodium 10 Mg Tablet) 10 mg PO DAILY@1800 [facility] Stop: 04/30/20 18:59 Last Admin: 03/31/20 20:25 Dose: 10 mg Documented by: Multivitamins/Minerals (Calcium 600mg + Vit D 400 Iu Tab) 1 tab PO DAILY@1800 [facility] Stop: 04/30/20 18:59 Last Admin: 03/31/20 20:23 Dose: 1 tab Documented by: Nitroglycerin (Nitroglycerin Sl 0.4 Mg/Tab Tab) 0.4 mg SL UD PRN PRN Reason: Chest Pain Stop: 04/30/20 13:35 Ondansetron HCl (Ondansetron Inj 2 Mg/Ml 2 Ml Vial) 4 mg IV Q6H PRN PRN Reason: Nausea Stop: 04/30/20 13:35 Pantoprazole Sodium (Pantoprazole 40 Mg Tab) 40 mg PO BID@0900,1800 [facility] Stop: 04/30/20 18:59 Last Admin: 04/01/20 08:04 Dose: 40 mg Documented by: Polyethylene Glycol (Polyethylene (Miralax) 17 Gm Pack) 17 gm PO DAILY PRN PRN Reason: Constipation Stop: 04/30/20 13:35 Potassium Chloride (Potassium Chloride 10 Meq Tabcr) 10 meq PO DAILY [facility] Stop: 05/01/20 08:59 Last Admin: 04/01/20 08:04 Dose: 10 meq Documented by: Sodium Chloride (Sodium Chloride 0.65% Na Soln 45 Ml (Mason)) 2 sprays DENNY BID [facility] Stop: 04/30/20 20:59 Last Admin: 04/01/20 08:01 Dose: 2 sprays Documented by: Spironolactone (Spironolactone 12.5 Mg Tab) 12.5 mg PO DAILY@0900 [facility] Stop: 05/01/20 08:59 Last Admin: 04/01/20 08:05 Dose: 12.5 mg Documented by: Sucralfate (Sucralfate 1 Gm Tab) 1 gm PO BID@1130,1630 [facility] Stop: 05/01/20 11:29 Tamoxifen Citrate (Tamoxifen Citrate 10 Mg Tablet) 20 mg PO DAILY [facility] Stop: 05/01/20 08:59 Last Admin: 04/01/20 08:04 Dose: 20 mg Documented by: Triamcinolone Acetonide (Triamcinolone Acet Nasal [place] 10.8ml Btl) 1 sprays DENNY BID@0900,1800 [facility] Stop: 04/30/20 20:59 Last Admin: 04/01/20 08:02 Dose: 1 sprays Documented by: Vitamin D (Cholecalciferol 1,000 Units 25 Mcg Tab) 2,000 units PO DAILY [facility] Stop: 05/01/20 08:59 Last Admin: 04/01/20 08:04 Dose: 2,000 units Documented by: Warfarin Sodium (Warfarin Sod 1.25 Mg Tab) 1.25 mg PO Mo@1600 [facility] Stop: 05/06/20 15:59 Warfarin Sodium (Warfarin Sod 2.5 Mg Tab) 2.5 mg PO DAILY@1600 [facility] Stop: 04/30/20 18:59 Last Admin: 03/31/20 20:25 Dose: 2.5 mg Documented by: (1) Syncope Syncope type: vasovagal syncope Qualified Code(s): R55 - Syncope and collapse (2) CKD (chronic kidney disease), stage III Chronic kidney disease stage 3 subtype: stage 3b (GFR 30-44) Qualified Code(s): N18.32 - Chronic kidney disease, stage 3b
[2020-04-01] MEDS ORDERED: SUCRALFATE 1 GM TAB PO SCH (11:30)
[2020-04-01 11:45] VITALS: TEMP 98.4
[2020-04-01 13:18] VITALS: PULSE 61; O2SAT 93
--- NOTE | 2020-04-01 15:37 | Discharge Summary ---
Date of Service April 01, 2020 Admission HPI Per Admitting Provider This is a 89-year-old female with medical history of hypertension, CKD stage III, chronic hyponatremia, history of coronary artery disease, chronic diastolic heart failure, COPD/asthma prior history of breast cancer history of paroxysmal on Coumadin anticoagulation Presents to ER with episode of syncope . Patient lives with her daughter, who was helping her in the bath/shower around 9 AM in the morning Completing her bath, patient felt very short of breath, as she bent down to apply lotion on her legs-her shortness of breath was worsened, she felt very dizzy and lightheaded, managed to to steady herself holding on to the sink. Her daughter noticed patient was very pale, unresponsive,: Unable to answer questions, appeared to be dazed, very short of breath No episode of nausea vomiting, no diaphoresis Daughter helped the patient to sit down on the toilet seat, patient remained unresponsive for 10 seconds, then gradually able to answer question, Patient felt very weak and wiped out, later had a bowel movement. Daughter reports she took patient's vital while she was sitting : Her SBP was very low in the 70s, heart rate was high, after few minutes of resting she rechecked her blood pressure which improved to 130s, heart rate was in low 70s In the ER patient is alert and oriented, no complaint of dizzy spell or lightheadedness, vitals stable, Lab works unremarkable CT head noncontrast: No acute intracranial abnormality, chest x-ray shows no acute cardiopulmonary disease. Patient was at her baseline health in last few days, no complaint of increased shortness of breath or dyspnea on exertion, no fever or chills, has chronic baseline cough for COPD-nothing out of ordinary, Had normal appetite, no abdominal pain, no nausea vomiting or diarrhea. She will be observed in telemetry overnight for possible vasovagal syncope. Admission Exam Per Admitting Provider Constitutional: WD/WN, vitals as above (Elderly female, comfortable) + frail appearing; no acute distress Eyes: + anicteric sclerae ENMT: external ear and nose normal, oropharynx normal Neck: trachea midline, no thyromegaly Respiratory: normal respiratory effort, lungs clear to auscultation Cardiovascular: Rate/Rhythm: regular rate and regular rhythm Extremities: + edema (Trace bilateral lower extremity edema) Gastrointestinal (Abdomen): Percussion/Palpation: abdomen soft; abdomen nontender Musculoskeletal: no cyanosis or clubbing, extremities motor strength 5/5 Skin: no rashes, warm and dry Neurologic: PERRL, EOMI, accommodation nl, no face palsy, no dysarthria no focal motor deficits and not confused Psychiatric: A+Ox3, euthymic affect Principal Diagnosis Syncope/vasovagal episode Discharge Exam Constitutional: WD/WN, vitals as above (Elderly female, comfortable) + frail appearing; no acute distress Eyes: EOMI, + anicteric sclerae ENMT: external ear and nose normal, oropharynx normal Neck: trachea midline, no thyromegaly Respiratory: normal respiratory effort, lungs clear to auscultation Cardiovascular: Rate/Rhythm: regular rate and regular rhythm Extremities: + edema (Trace bilateral lower extremity edema) Gastrointestinal (Abdomen): Percussion/Palpation: abdomen soft; abdomen nontender, + bowel sounds Musculoskeletal: no cyanosis or clubbing, extremities motor strength 5/5 Skin: no rashes, warm and dry Neurologic: PERRL, EOMI, no face palsy, no dysarthria no focal motor deficits and not confused Psychiatric: A+Ox3, euthymic affect Discharge Data 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, 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 sulfamethoxazole Allergy Mild RASH Verified 03/31/20 14:00 trimethoprim Allergy Mild RASH Verified 03/31/20 14:00 amlodipine Allergy Unknown Unverified 03/31/20 14:00 amoxicillin Allergy Rash Unverified 03/31/20 14:00 azithromycin Allergy Unknown Unverified 03/31/20 14:00 cefuroxime [From Ceftin] Allergy Diarrhea Unverified 03/31/20 14:00 ipratropium Allergy Unknown Unverified 03/31/20 14:00 Sulfa (Sulfonamide Allergy Hives Unverified 03/31/20 14:00 Antibiotics) Consultations 03/31/20 13:06 ED Decision to Admit Stat 03/31/20 13:37 Consult Case Management - Discharge Planning Routine Ordered Studies 03/31/20 10:47 CT head/brain wo con Stat There is no hemorrhage, mass effect, or evidence of acute territorial ischemia by CT criteria. 03/31/20 14:50 US carotid doppler BI Stat No hemodynamically significant stenosis seen within the carotid arteries. Hospital Course (1) Syncope: Patient's presentation most likely due to vasovagal episode. Daughter reports, patient keeps the bathroom very warm using heater, and took bath with hot water, Transient episode of lightheadedness, no loss of consciousness or fall, patient recovered spontaneously, without any confusion no headache no weakness or paresthesia Had transient hypotensive episode, followed by bowel movement In the ER patient remained completely asymptomatic, stable vitals, Able to ambulate to the restroom with daughter's assistance, had no complaint of dizzy spells or lightheadedness CT head noncontrast, no acute change Twelve-lead EKG normal sinus rhythm, no evidence of ischemia or arrhythmia Patient observed overnight in telemetry unit -telemetry reviewed, normal sinus rhythm, some PACs Check orthostatic vitals - normal PT OT evaluation -recommend discharge home with daughter assist. Carotid ultrasound to rule out carotid stenosis - no significant stenosis Resting echocardiogram for evaluation of any valvular heart disease - normal left ventricular wall thickness. LV wall motion is normal. EF 55 to 60%. Aortic valve sclerosis mild, without significant aortic valvular stenosis. Grade 1 diastolic dysfunction. (2) CKD (chronic kidney disease), stage III: Creatinine at approximate baseline, [facility] Chronic hyponatremia: Sodium level normal 136 on admission Patient is approximately 0953-9281 mL a day fluid restriction at home-which is continued (3) Chronic diastolic CHF (congestive heart failure): Stable volume status Chest ray shows no effusion Continue home medications Echo obtained to assess LV function, as above Chronic asthma/COPD: No acute symptoms, no wheeze, no hypoxia no complaint of shortness of breath Has chronic nonproductive cough, no infiltrate noted on chest x-ray, no fever or chills, no known COVID-19 exposure Continue outpatient inhalers History of coronary artery disease: No complaint of chest pain: Continue outpatient medications Imdur/Coreg, aspirin History of paroxysmal A. fib: Rate controlled, in normal sinus rhythm now Continue home medications of beta-ced, Coumadin(INR therapeutic) Disposition: Lives at home with daughter, fairly independent in her ADLs, PT OT evaluation obtained, recommend to return home with daughter's assistance. Follow-up with primary care provider, appointment already scheduled. Total Time Total Time Spent Total Time Spent (In Minutes): 40 Total Time Includes: Examination of the Patient, Discharge Planning and Medication Reconciliation Discharge Plan Discharge Items Patient Disposition: Home - Self-Care Reason For Visit: SYNCOPE/PASSING OUT IN SHOWER Discharge Diagnosis: Syncope/vasovagal episode Activity: Per Instructions section Non-emergency contact: Primary Care Provider Call non-emergency contact if: you have any medication questions and your symptoms worsen Follow-up/Referrals: Cate Stone MD [Primary Care Provider] - (Date & Time 04/07/2020 2:00 PM Provider Cate Stone MD Department General Internal Medicine [facility] ) Diet: Heart Healthy and Low Sodium (2gm) Fluids: 1500ml (6 cups) Addtl Attending Provider Instructions: Follow-up with your primary care provider. The appointment was scheduled for you for April 07. Please make sure that if you do not feel well, have your family close by and contact your primary care provider. Pending Studies at Discharge: No Stand-Alone Forms: My [facility] [email or web address], Smoking Cessation Medications and DC Order Prescriptions: Continued amoxicillin 500 mg Capsule 500 mg PO BID PRN (Reason: Other) RF: 0 atorvastatin 40 mg Tablet 40 mg PO DAILY@1800 RF: 0 carvedilol [Coreg] 25 mg Tablet 12.5 mg PO BID RF: 0 carvedilol [Coreg] 6.25 mg Tablet 6.25 mg PO DAILY@1800 RF: 0 sucralfate [Carafate] 1 gram Tablet 1 g PO QID PRN (Reason: Acid Reflux) RF: 0 warfarin 2.5 mg Tablet 3.75 mg PO MOTH RF: 0 allopurinol 100 mg Tablet 200 mg PO DAILY RF: 0 spironolactone 25 mg Tablet 12.5 mg PO DAILY@0900 RF: 0 prednisone 10 mg Tablets,Dose Pack 10 mg PO DIRECTED PRN (Reason: Other) RF: 0 calcitonin (salmon) 200 unit/actuation Reynolds,Non-Aerosol 1 spray intranasal DAILY RF: 0 benzonatate 100 mg Capsule 100 mg PO TID PRN (Reason: Cough) RF: 0 budesonide 0.5 mg/2 mL Suspension For Nebulization 0.5 mg INHALATION BID RF: 0 levalbuterol HCl [Xopenex] 1.25 mg/3 mL Solution For Nebulization 1.25 mg INHALATION TID RF: 0 tamoxifen 20 mg Tablet 20 mg PO DAILY RF: 0 iron-vit B rfmi-N-zfp-liver ex Tablet 1 tab PO MOWEFR RF: 0 levothyroxine 150 mcg Capsule 150 mcg PO DAILY RF: 0 losartan 50 mg Tablet 50 mg PO HS@2200 RF: 0 aspirin [Aspirin Low Dose] 81 mg Tablet,Delayed Release (Dr/Ec) 81 mg PO DAILY RF: 0 pantoprazole [Protonix] 40 mg Tablet,Delayed Release (Dr/Ec) 40 mg PO BID RF: 0 nitroglycerin [Nitrostat] 0.4 mg Tablet, Sublingual 0.4 mg buccal DAILY PRN (Reason: Chest Pain) RF: 0 montelukast 10 mg Tablet 10 mg PO DAILY@1800 RF: 0 cholecalciferol (vitamin D3) [Vitamin D3] 1,000 unit Capsule 2,000 unit PO DAILY RF: 0 escitalopram oxalate [Lexapro] 10 mg Tablet 5 mg PO DAILY RF: 0 hydralazine 10 mg Tablet 10 mg PO BID PRN (Reason: HTN) RF: 0 fexofenadine 180 mg Tablet 180 mg PO DAILY RF: 0 calcium carbonate 600 mg calcium (1,500 mg) Tablet 1,200 mg PO DAILY@1800 RF: 0 warfarin 2.5 mg tablet 2.5 mg PO SUTUWEFRSA RF: 0 triamcinolone acetonide [Nasacort] 55 mcg Aerosol,Reynolds 1 spray INTRANASAL BID RF: 0 azelastine 137 mcg (0.1 %) Aerosol,Reynolds 1 spray INTRANASAL BID RF: 0 docusate sodium 100 mg Tablet 500 mg PO BID RF: 0 sodium chloride [Saline Nasal] 0.65 % Aerosol,Reynolds 2 spray INTRANASAL QID PRN (Reason: Nasal Congestion) RF: 0 Brovana 15 mcg/2 mL Solution For Nebulization 15 mcg INHALATION BID PRN (Reason: Shortness Of Breath) RF: 0 nystatin 100,000 unit/mL suspension 5 ml PO BID RF: 0 levofloxacin 250 mg Tablet 250 mg PO DAILY@1600 Qty: 3 RF: 0 tramadol 50 mg Tablet 25 - 50 mg PO Q4H PRN (Reason: severe pain) Qty: 30 RF: 0 furosemide 40 mg tablet 40 mg PO DAILY Qty: 30 RF: 1 potassium chloride 10 mEq tablet extended release 10 meq PO DAILY Qty: 30 RF: 1 magnesium oxide 400 mg (241.3 mg magnesium) Tablet 400 mg PO QAM Qty: 30 RF: 1 (DME) Oxygen Home Liters Per Minute See Dose Instructions .ROUTE .MEDSUPPLY Qty: 1 RF: 0 isosorbide mononitrate 30 mg tablet extended release 24 hr 30 mg PO QPM RF: 0 Discharge Orders: Discharge Order (Routine); Ordered 04/01/20 Ordered By: Derek Thorpe Admission Data Admit Date/Time: 03/31/20 13:36 Attending Provider: Derek Thorpe Admit Provider: Autumn Taylor Primary Care Provider: Cate Stone Other Providers: Autumn Taylor Other Interventions: Discharge Summary Assessment (RN) Last Done: 04/01/20 15:42
[2020-04-01 15:44] VITALS: BP 142/86
[2020-04-06] MEDS ORDERED: WARFARIN SOD 1.25 MG TAB PO SCH (16:00)
== END 2020-04-01 16:41 | disposition home or self-care (01) ==
LOC: 2S 10:27 → ED 10:27 → SUATTDRO 13:36 → 2S 17:07

== ENCOUNTER 2021-05-19 11:55 | Inpatient (IN) ==
--- NOTE | 2021-05-19 12:53 | XRay Report ---
XR chest 2V PA/lateral CLINICAL HISTORY: weakness TECHNIQUE: AP and lateral frontal radiograph of the chest was obtained. Comparison: Comparison is made to chest one view 03/31/2020 FINDINGS: No lines and tubes are seen. Cardiomegaly is noted. The lungs are clear. No evidence of pleural effus ion or pneumothorax. Degenerative changes are seen in the thoracic spine with loss of height in the l ower thoracic vertebral bodies. IMPRESSION: No acute chest disease. ACT 112: Negative or not required by law. Electronically signed by: Ayo Simon M.D. 05/19/2021 12:52 PM
[2021-05-19 13:02] LABS: Basophils # (auto) 0.03 K/uL (0-0.2); Basophils % (auto) 0.2 %; Eosinophils # (auto) 0.01 K/uL (0-0.5); Eosinophils % (auto) 0.1 %; Hematocrit (blood only) 24.3 % (37-47); Hemoglobin 7.8 g/dL (12.0-16.0); Immature Granulocytes # (auto) 0.27 K/uL (0.00-0.02); Immature Granulocytes % (auto) 1.5 %; Lymphocytes # (auto) 1.24 K/uL (1.2-3.4); Lymphocytes % (auto) 6.7 %; Mean Corpuscular Hemoglobin 30.6 pg (25-34); Mean Corpuscular Hgb Conc 32.1 g/dL (32-36); Mean Corpuscular Volume 95.3 fL (80-100); Mean Platelet Volume 9.7 fL (7.4-10.4); Monocytes # (auto) 1.14 K/uL (0.11-0.59); Monocytes % (auto) 6.2 %; Neutrophils # (auto) 15.69 K/uL (1.4-6.5); Neutrophils % (auto) 85.3 %; Platelet Count 254 K/uL (130-400); RDW Coefficient of Variation 15.6 % (11.5-14.5); RDW Standard Deviation 53.8 fL (36.4-46.3); Red Blood Count 2.55 M/uL (4.2-5.4); White Blood Count 18.38 K/uL (4.8-10.8)
[2021-05-19 13:20] LABS: Poikilocytosis Present
[2021-05-19 13:28] LABS: Alanine Aminotransferase 26 (12-78); Albumin Level 2.6 gm/dl (3.4-5.0); Aspartate Aminotransferase 16 U/L (15-37); BUN Creatinine Ratio 37.4 (10-20); Blood Urea Nitrogen 60 mg/dl (7-18); Calcium 8.8 mg/dl (8.5-10.1); Carbon Dioxide 28 mmol/L (21-32); Chloride 102 mmol/L (98-107); Est GFR (African American) 32.5 ml/min; Est GFR (Non-African American) 28.1 ml/min; Glucose 119 mg/dl (70-99); Potassium 3.8 mmol/L (3.5-5.1); Sodium 137 mmol/L (136-145)
[2021-05-19 13:38] LABS: Albumin Globulin Ratio 0.8 (0.9-2); Alkaline Phosphatase 44 U/L (45-117); Bilirubin,Total 0.5 mg/dl (0.2-1); Globulin 3.2 gm/dl (2.5-4.0); Thyroid Stimulating Hormone 0.523 uIu/ml (0.300-4.500); Total Protein 5.8 gm/dl (6.4-8.2); Troponin I 0.019 ng/ml (0-0.045)
--- NOTE | 2021-05-19 14:24 | Electrocardiogram Report ---
Test Reason : Blood Pressure : / mmHG Vent. Rate : 071 BPM Atrial Rate : 071 BPM P-R Int : 240 ms QRS Dur : 072 ms QT Int : 378 ms P-R-T Axes : 091 -19 028 degrees QTc Int : 410 ms Poor data quality, interpretation may be adversely affected Sinus rhythm with sinus arrhythmia with 1st degree A-V block Low voltage QRS Possible Anterolateral infarct (cited on or before 02-SEP-2013) Abnormal ECG When compared with ECG of 31-MAR-2020 10:59, Questionable change in initial forces of Lateral leads Confirmed by Juan Miguel Crawley ([id number]) on 05/19/2021 2:23:37 PM Referred By: Confirmed By:Juan Miguel Crawley
[2021-05-19] MEDS ORDERED: SODIUM CHLORIDE 0.9% 250 ML IV PRN (14:41)
--- NOTE | 2021-05-19 14:50 | Emergency Department Note ---
History of Present Illness General Chief complaint: Weakness Stated complaint: LOW PULSE OX,WEAK Time Seen by Provider: 05/19/21 14:14 History of Present Illness Maximum Pain Intensity: 0 89-year-old female presents to the ED with a chief complaint of generalized weakness that has been worsening. She has been having some intermittent diarrhea for a couple of months. It was worse this weekend. She was seen by her doctor yesterday and had some blood work done. They called her today because she was anemic. She is currently on a prednisone taper. She does use oxygen at home. She recently had an increase in her furosemide because of increased pedal edema. Her INR yesterday was reportedly 7. She uses Coumadin for history of A. fib. No fevers or recent illness. The patient had an outpatient white blood cell count elevation and they were worried about infection. This could be related to the patient's prednisone use. The daughter also reported that her pulse ox at home has been running kind of low. They were worried about pneumonia. Home Medications Medication Instructions Recorded Confirmed Type allopurinol 100 mg tablet 200 mg PO DAILY 02/19/19 11/15/20 History amoxicillin 500 mg capsule 500 mg PO BID PRN 02/19/19 11/15/20 History aspirin 81 mg tablet,delayed 81 mg PO DAILY 02/19/19 11/15/20 History release (Aspirin Low Dose) atorvastatin 40 mg tablet 40 mg PO DAILY@1800 02/19/19 11/15/20 History azelastine 137 mcg (0.1 %) nasal 1 spray INTRANASAL BID 02/19/19 11/15/20 H istory spray aerosol benzonatate 100 mg capsule 100 mg PO TID PRN 02/19/19 11/15/20 History budesonide 0.5 mg/2 mL suspension 0.5 mg INHALATION BID 02/19/19 11/15/20 History for nebulization calcitonin (salmon) 200 1 spray INTRANASAL DAILY 02/19/19 11/15/20 History unit/actuation nasal spray calcium carbonate 600 mg calcium 1,200 mg PO DAILY@1800 02/19/19 11/15/20 History (1,500 mg) tablet carvedilol 25 mg tablet (Coreg) 12.5 mg PO BID 02/19/19 11/15/20 History cholecalciferol (vitamin D3) 25 2,000 unit PO DAILY 02/19/19 11/15/20 History mcg (1,000 unit) capsule (Vitamin D3) docusate sodium 100 mg tablet 500 mg PO BID 02/19/19 11/15/20 History escitalopram oxalate 10 mg tablet 5 mg PO DAILY 02/19/19 11/15/20 History (Lexapro) fexofenadine 180 mg tablet 180 mg PO DAILY 02/19/19 11/15/20 History hydralazine 10 mg tablet 10 mg PO BID PRN 02/19/19 11/15/20 History iron-vit B xxba-F-gue-liver ex 1 tab PO MOWEFR 02/19/19 11/15/20 History tablet levalbuterol HCl 1.25 mg/3 mL 1.25 mg INHALATION TID 02/19/19 11/15/20 History solution for nebulization (Xopenex) levothyroxine 150 mcg capsule 150 mcg PO DAILY 02/19/19 11/15/20 History losartan 50 mg tablet 50 mg PO HS@2200 02/19/19 11/15/20 History montelukast 10 mg tablet 10 mg PO DAILY@1800 02/19/19 11/15/20 History nitroglycerin 0.4 mg sublingual 0.4 mg BUCCAL DAILY PRN 02/19/19 11/15/20 History tablet (Nitrostat) nystatin 100,000 unit/mL oral 5 ml PO BID 02/19/19 11/15/20 History suspension pantoprazole 40 mg tablet,delayed 40 mg PO BID 02/19/19 11/15/20 History release (Protonix) prednisone 10 mg tablets in a dose 10 mg PO DIRECTED PRN 02/19/19 11/15/20 History pack sodium chloride 0.65 % nasal spray 2 spray INTRANASAL QID PRN 02/19/19 11/15/20 History aerosol (Saline Nasal) spironolactone 25 mg tablet 12.5 mg PO DAILY@0900 02/19/19 11/15/20 History sucralfate 1 gram tablet (Carafate) 1 g PO QID PRN 02/19/19 11/15/20 History tamoxifen 20 mg tablet 20 mg PO DAILY 02/19/19 11/15/20 History triamcinolone acetonide 55 mcg 1 spray INTRANASAL BID 02/19/19 11/15/20 History nasal spray aerosol (Nasacort) warfarin 2.5 mg tablet 2.5 mg PO SUTUWEFRSA 02/19/19 11/15/20 History warfarin 2.5 mg tablet 3.75 mg PO MOTH 02/19/19 11/15/20 History Oxygen Home #1 ea 02/23/19 Rx furosemide 40 mg tablet 40 mg PO DAILY #30 tab 02/23/19 11/15/20 Rx magnesium oxide 400 mg (241.3 mg 400 mg PO QAM #30 tab 02/23/19 11/15/20 Rx magnesium) tablet potassium chloride 10 mEq 10 meq PO DAILY #30 tab 02/23/19 11/15/20 Rx tablet,extended release isosorbide mononitrate 60 mg 60 mg PO HS 11/15/20 11/15/20 History tablet,extended release 24 hr levalbuterol tartrate 45 1 puff INHALATION Q4H PRN 11/15/20 11/15/20 History mcg/actuation aerosol inhaler tramadol 50 mg tablet 50 mg PO Q6H PRN 11/15/20 11/15/20 History Allergies Allergy/AdvReac Type Severity Reaction Status Date / Time dipyridamole Allergy Severe ANAPHYLAXIS Verified 11/15/20 16:03 edetic acid Allergy Severe ANAPHYLAXIS Verified 11/15/20 16:03 propylene glycol Allergy Severe ANAPHYLAXIS Verified 11/15/20 16:03 regadenoson Allergy Severe ANAPHYLAXIS Verified 11/15/20 16:03 NSAIDS (Non-Steroidal Allergy Mild per Verified 11/15/20 16:03 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, 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 sulfamethoxazole Allergy Mild RASH Verified 11/15/20 16:03 trimethoprim Allergy Mild RASH Verified 11/15/20 16:03 amlodipine Allergy Unknown Unverified 11/15/20 16:03 amoxicillin Allergy Rash Unverified 11/15/20 16:03 azithromycin Allergy Unknown Unverified 11/15/20 16:03 cefuroxime [From Ceftin] Allergy Diarrhea Unverified 11/15/20 16:03 ipratropium Allergy Unknown Unverified 11/15/20 16:03 Sulfa (Sulfonamide Allergy Hives Unverified 11/15/20 16:03 Antibiotics) Past Med/Surg History Medical History (Updated 05/19/21 @ 15:55 by Mauricio Mcguire DO) Anticoagulated on Coumadin Anxiety Asthma, moderate persistent Chronic diastolic CHF (congestive heart failure) CKD (chronic kidney disease), stage III Dyslipidemia GERD (gastroesophageal reflux disease) Gout Heart disease "nonobstructive disease per cath 2011" History of breast cancer Hypothyroidism (acquired) "s/p thyroidectomy and radioiodine therapy for cancer treatment" Hysterectomy (02/22/13) IBS (irritable bowel syndrome) Labile hypertension Osteoporosis (02/22/13) PAF (paroxysmal atrial fibrillation) 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 Father , Passed age 50 of [place] No problems noted. Brother Lung fibrosis Brother , Passed age 63 of allergic reaction to antibiotics No problems noted. Sister , Passed age 83 of "electrolyte disturbances" DCIS (ductal carcinoma in situ) Sister , Passed age 84 from post surgical complications No problems noted. Sister No problems noted. Daughter No problems noted. Daughter No problems noted. Son No problems noted. 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) Feels Safe at Home: Yes caffeine: No during the past year weight has: remained stable Assistive Devices: Walker Review of Systems A total of 10 systems reviewed and were otherwise negative Physical Exam Vital Signs Vital Signs - 24 hr 05/19/21 11:58 05/19/21 12:43 05/19/21 15:10 Temperature 36.9 C Temperature Source Temporal Artery Scan Pulse Rate - Lying Pulse Rate - Sitting Pulse Rate 67 Pulse Rate [Apical] 74 Pulse Rhythm [Apical] Regular Respiratory Rate 16 16 Blood Pressure - Lying Blood Pressure - Sitting Blood Pressure 127/57 L Blood Pressure [Left Arm] 134/102 H Blood Pressure Mean 80 Blood Pressure Mean [Left Arm] 112 Pulse Oximetry 99 94 100 Oxygen Delivery Method Room Air Room Air Nasal Cannula Oxygen Flow Rate 2 Sepsis Recent Fever Within 48 Hours No Sepsis New/Unexplained Change in Mental Status No Sepsis Action Taken by Nursing No Action Required 05/19/21 15:13 05/19/21 15:14 Temperature Temperature Source Pulse Rate - Lying 75 Pulse Rate - Sitting 80 Pulse Rate Pulse Rate [Apical] Pulse Rhythm [Apical] Respiratory Rate Blood Pressure - Lying 129/67 Blood Pressure - Sitting 123/75 Blood Pressure Blood Pressure [Left Arm] Blood Pressure Mean Blood Pressure Mean [Left Arm] Pulse Oximetry Oxygen Delivery Method Nasal Cannula Oxygen Flow Rate 2 Sepsis Recent Fever Within 48 Hours Sepsis New/Unexplained Change in Mental Status Sepsis Action Taken by Nursing CONSTITUTIONAL/VITAL SIGNS: Reviewed / noted above. GENERAL: Non-toxic in appearance. INTEGUMENTARY: Warm, dry, and [place]. HEAD: Normocephalic. Contusion in the left forehead region related to bumping her head over Thanksgiving. She states that she was getting off the toilet and bumped her head on the counter that was right in front of her. EYES: without scleral icterus or trauma. ENT/OROPHARYNX: clear and moist. LYMPHADENOPATHY/NECK: Is supple without lymphadenopathy or meningismus. RESPIRATORY: Clear to auscultation bilaterally. No increased work of breathing. CARDIOVASCULAR: Regular rate and rhythm. GI/ABDOMEN: Soft and nontender. No organomegaly or pulsatile mass. EXTREMITIES: Warm and well perfused. Positive pedal edema. Erythema/ ecchymosis to the right leg. BACK: No CVA tenderness. NEUROLOGICAL: Intact without focal deficits. PSYCHIATRIC: normal affect. MUSCULOSKELETAL: Normally developed with good muscle tone. TRIAGE NURSING DOCUMENTATION REVIEWED. Critical Care Time Critical Care Time: Yes Total Critical Care Time: 30 I have personally spent 30 minutes of critical care time in the direct management of this patient. This includes bedside care, interpretation of diagnostic studies, and testing, discussion with consultants, patient, and family members, and other required patient management activities. This 30 fidencio neha is in excess of all separately billable procedures. Medical Decision Making Differential Diagnosis Differential includes acute coronary syndrome, myocardial infarction, CVA, TIA, anemia, infection, pneumonia, UTI, pyelonephritis, poor nutrition, dehydration, electrolyte disturbance,hypoglycemia. Medical Records Attestation: I reviewed the patient's medical records. Home Medications Current Medication List: was personally reviewed by me Laboratory Data Attestation: I reviewed the patient's lab results. Result diagrams: 05/19/21 12:52 05/19/21 12:52 Lab Results 05/19/21 05/19/21 05/19/21 Range/Units 12:50 12:52 12:52 WBC 18.38 H (4.8-10.8) K/uL RBC 2.55 L (4.2-5.4) M/uL Hgb 7.8 L (12.0-16.0) g/dL Hct 24.3 L (37-47) % MCV 95.3 (80-100) fL MCH 30.6 (25-34) pg MCHC 32.1 (32-36) g/dL RDW Std Deviation 53.8 H (36.4-46.3) fL RDW Coeff of Chrissy 15.6 H (11.5-14.5) % Plt Count 254 (130-400) K/uL MPV 9.7 (7.4-10.4) fL Immature Gran % (Auto) 1.5 % Neut % (Auto) 85.3 % Lymph % (Auto) 6.7 % Lyman % (Auto) 6.2 % Eos % (Auto) 0.1 % Baso % (Auto) 0.2 % Neut # (Auto) 15.69 H (1.4-6.5) K/uL Lymph # (Auto) 1.24 (1.2-3.4) K/uL Lyman # (Auto) 1.14 H (0.11-0.59) K/uL Eos # (Auto) 0.01 (0-0.5) K/uL Baso # (Auto) 0.03 (0-0.2) K/uL Immature Gran # (Auto) 0.27 H (0.00-0.02) K/uL Poikilocytosis Present PT (9.0-12.0) Seconds INR (0.9-1.1) Sodium 137 (136-145) mmol/L Potassium 3.8 (3.5-5.1) mmol/L Chloride 102 (98-107) mmol/L Carbon Dioxide 28 (21-32) mmol/L Anion Gap 7.0 (3-11) BUN 60 H (7-18) mg/dl Creatinine 1.61 H (0.6-1.2) mg/dl Est Cr Clr Drug Dosing Not Reportable Est GFR ( Amer) 32.5 ml/min Est GFR (Non-Af Amer) 28.1 ml/min BUN/Creatinine Ratio 37.4 H (10-20) Glucose 119 H (70-99) mg/dl Calcium 8.8 (8.5-10.1) mg/dl Total Bilirubin 0.5 (0.2-1) mg/dl AST 16 (15-37) U/L ALT 26 (12-78) Alkaline Phosphatase 44 L (45-117) U/L Troponin I 0.019 (0-0.045) ng/ml Total Protein 5.8 L (6.4-8.2) gm/dl Albumin 2.6 L (3.4-5.0) gm/dl Globulin 3.2 (2.5-4.0) gm/dl Albumin/Globulin Ratio 0.8 L (0.9-2) Procalcitonin 0.16 (0-0.5) ng/ml TSH 0.523 (0.300-4.500) uIu/ml Urine Color Urine Appearance (Clear) Urine pH (4.5-7.5) Ur Specific [place] (1.000-1.030) Urine Protein (Negative) Urine Glucose (UA) (Negative) Urine Ketones (Negative) Urine Blood (Negative) Urine Nitrite (Negative) Urine Bilirubin (Negative) Urine Urobilinogen (Negative) Ur Leukocyte Esterase (Negative) SARS-CoV-2, RNA, NAAT (NEGATIVE) Crossmatch 05/19/21 05/19/21 05/19/21 Range/Units 12:52 14:45 15:26 WBC (4.8-10.8) K/uL RBC (4.2-5.4) M/uL Hgb (12.0-16.0) g/dL Hct (37-47) % MCV (80-100) fL MCH (25-34) pg MCHC (32-36) g/dL RDW Std Deviation (36.4-46.3) fL RDW Coeff of Chrissy (11.5-14.5) % Plt Count (130-400) K/uL MPV (7.4-10.4) fL Immature Gran % (Auto) % Neut % (Auto) % Lymph % (Auto) % Lyman % (Auto) % Eos % (Auto) % Baso % (Auto) % Neut # (Auto) (1.4-6.5) K/uL Lymph # (Auto) (1.2-3.4) K/uL Lyman # (Auto) (0.11-0.59) K/uL Eos # (Auto) (0-0.5) K/uL Baso # (Auto) (0-0.2) K/uL Immature Gran # (Auto) (0.00-0.02) K/uL Poikilocytosis PT 68.8 H (9.0-12.0) Seconds INR 8.0 H* (0.9-1.1) Sodium (136-145) mmol/L Potassium (3.5-5.1) mmol/L Chloride (98-107) mmol/L Carbon Dioxide (21-32) mmol/L Anion Gap (3-11) BUN (7-18) mg/dl Creatinine (0.6-1.2) mg/dl Est Cr Clr Drug Dosing Est GFR ( Amer) ml/min Est GFR (Non-Af Amer) ml/min BUN/Creatinine Ratio (10-20) Glucose (70-99) mg/dl Calcium (8.5-10.1) mg/dl Total Bilirubin (0.2-1) mg/dl AST (15-37) U/L ALT (12-78) Alkaline Phosphatase (45-117) U/L Troponin I (0-0.045) ng/ml Total Protein (6.4-8.2) gm/dl Albumin (3.4-5.0) gm/dl Globulin (2.5-4.0) gm/dl Albumin/Globulin Ratio (0.9-2) Procalcitonin (0-0.5) ng/ml TSH (0.300-4.500) uIu/ml Urine Color Yellow Urine Appearance Clear (Clear) Urine pH 5.5 (4.5-7.5) Ur Specific [place] 1.010 (1.000-1.030) Urine Protein Negative (Negative) Urine Glucose (UA) Negative (Negative) Urine Ketones Negative (Negative) Urine Blood Negative (Negative) Urine Nitrite Negative (Negative) Urine Bilirubin Negative (Negative) Urine Urobilinogen Negative (Negative) Ur Leukocyte Esterase Negative (Negative) SARS-CoV-2, RNA, NAAT (NEGATIVE) Crossmatch See Detail 05/19/21 Range/Units Unknown WBC (4.8-10.8) K/uL RBC (4.2-5.4) M/uL Hgb (12.0-16.0) g/dL Hct (37-47) % MCV (80-100) fL MCH (25-34) pg MCHC (32-36) g/dL RDW Std Deviation (36.4-46.3) fL RDW Coeff of Chrissy (11.5-14.5) % Plt Count (130-400) K/uL MPV (7.4-10.4) fL Immature Gran % (Auto) % Neut % (Auto) % Lymph % (Auto) % Lyman % (Auto) % Eos % (Auto) % Baso % (Auto) % Neut # (Auto) (1.4-6.5) K/uL Lymph # (Auto) (1.2-3.4) K/uL Lyman # (Auto) (0.11-0.59) K/uL Eos # (Auto) (0-0.5) K/uL Baso # (Auto) (0-0.2) K/uL Immature Gran # (Auto) (0.00-0.02) K/uL Poikilocytosis PT (9.0-12.0) Seconds INR (0.9-1.1) Sodium (136-145) mmol/L Potassium (3.5-5.1) mmol/L Chloride (98-107) mmol/L Carbon Dioxide (21-32) mmol/L Anion Gap (3-11) BUN (7-18) mg/dl Creatinine (0.6-1.2) mg/dl Est Cr Clr Drug Dosing Est GFR ( Amer) ml/min Est GFR (Non-Af Amer) ml/min BUN/Creatinine Ratio (10-20) Glucose (70-99) mg/dl Calcium (8.5-10.1) mg/dl Total Bilirubin (0.2-1) mg/dl AST (15-37) U/L ALT (12-78) Alkaline Phosphatase (45-117) U/L Troponin I (0-0.045) ng/ml Total Protein (6.4-8.2) gm/dl Albumin (3.4-5.0) gm/dl Globulin (2.5-4.0) gm/dl Albumin/Globulin Ratio (0.9-2) Procalcitonin (0-0.5) ng/ml TSH (0.300-4.500) uIu/ml Urine Color Urine Appearance (Clear) Urine pH (4.5-7.5) Ur Specific [place] (1.000-1.030) Urine Protein (Negative) Urine Glucose (UA) (Negative) Urine Ketones (Negative) Urine Blood (Negative) Urine Nitrite (Negative) Urine Bilirubin (Negative) Urine Urobilinogen (Negative) Ur Leukocyte Esterase (Negative) SARS-CoV-2, RNA, NAAT NEGATIVE (NEGATIVE) Crossmatch Imaging Data Radiologist's Impression: Chest X-Ray 05/19/21 12:06 XR chest 2V PA/lateral CLINICAL HISTORY: weakness TECHNIQUE: AP and lateral frontal radiograph of the chest was obtained. Comparison: Comparison is made to chest one view 03/31/2020 FINDINGS: No lines and tubes are seen. Cardiomegaly is noted. The lungs are clear. No evidence of pleural effusion or pneumothorax. Degenerative changes are seen in the thoracic spine with loss of height in the lower thoracic vertebral bodies. IMPRESSION: No acute chest disease. ACT 112: Negative or not required by law. Electronically signed by: Ayo Simon M.D. 05/19/2021 12:52 PM ECG Data Attestation: I personally reviewed and interpreted this ECG as follows: Additional Comments: Twelve-lead EKG: Per my interpretation shows a sinus rhythm at a rate of 70. First-degree AV block. No ST elevation. Normal QTC. MDM Narrative Patient presents with generalized weakness and recent diarrhea. Outpatient blood work yesterday showed anemia and leukocytosis. Chest x-ray today was negative for acute disease. EKG shows a sinus rhythm with a first-degree AV block and a rate of 70. White blood cell count is 18.3. Hemoglobin is 7.8. Stool is black and guaiac positive. Previous hemoglobin was 11.8 in December 02. BUN is 16 creatinine is 1.6. TSH was normal. Urine did not show infection. INR is 8. Covid test was negative. The patient was treated with a unit of blood. She was also ordered vitamin K 5 mg IV. She was given a Protonix drip. The patient was also given a Xopenex treatment which is what she normally takes at home around this time. She will be seen by the hospitalist for further inpatient evaluation and care. Impression & Plan Anemia, Generalized weakness, GI bleed, Leukocytosis Discharge Plan Visit Data Chief Complaint: Weakness Stated Complaint: LOW PULSE OX,WEAK ED Provider: Mauricio Mcguire Discharge Problem: Anemia, Generalized weakness, GI bleed, Leukocytosis Patient Disposition: Admitted As Inpatient Forms Stand Alone Forms: [facility], Virtual Emergency Department, Important Visit Information Prescriptions Prescriptions: No Action amoxicillin 500 mg Capsule 500 mg PO BID PRN (Reason: Dental Extraction pretreat) RF: 0 atorvastatin 40 mg Tablet 40 mg PO DAILY@1800 RF: 0 carvedilol [Coreg] 25 mg Tablet 12.5 mg PO BID RF: 0 sucralfate [Carafate] 1 gram Tablet 1 g PO QID PRN (Reason: Acid Reflux) RF: 0 warfarin 2.5 mg Tablet 3.75 mg PO MOTH RF: 0 allopurinol 100 mg Tablet 200 mg PO DAILY RF: 0 spironolactone 25 mg Tablet 12.5 mg PO DAILY@0900 RF: 0 prednisone 10 mg Tablets,Dose Pack 10 mg PO DIRECTED PRN (Reason: Other) RF: 0 calcitonin (salmon) 200 unit/actuation [place],Non-Aerosol 1 spray intranasal DAILY RF: 0 benzonatate 100 mg Capsule 100 mg PO TID PRN (Reason: Cough) RF: 0 budesonide 0.5 mg/2 mL Suspension For Nebulization 0.5 mg INHALATION BID RF: 0 levalbuterol HCl [Xopenex] 1.25 mg/3 mL Solution For Nebulization 1.25 mg INHALATION TID RF: 0 tamoxifen 20 mg Tablet 20 mg PO DAILY RF: 0 iron-vit B aldt-Q-khm-liver ex Tablet 1 tab PO MOWEFR RF: 0 levothyroxine 150 mcg Capsule 150 mcg PO DAILY RF: 0 losartan 50 mg Tablet 50 mg PO HS@2200 RF: 0 aspirin [Aspirin Low Dose] 81 mg Tablet,Delayed Release (Dr/Ec) 81 mg PO DAILY RF: 0 pantoprazole [Protonix] 40 mg Tablet,Delayed Release (Dr/Ec) 40 mg PO BID RF: 0 nitroglycerin [Nitrostat] 0.4 mg Tablet, Sublingual 0.4 mg buccal DAILY PRN (Reason: Chest Pain) RF: 0 montelukast 10 mg Tablet 10 mg PO DAILY@1800 RF: 0 cholecalciferol (vitamin D3) [Vitamin D3] 1,000 unit Capsule 2,000 unit PO DAILY RF: 0 escitalopram oxalate [Lexapro] 10 mg Tablet 5 mg PO DAILY RF: 0 hydralazine 10 mg Tablet 10 mg PO BID PRN (Reason: HTN) RF: 0 fexofenadine 180 mg Tablet 180 mg PO DAILY RF: 0 calcium carbonate 600 mg calcium (1,500 mg) Tablet 1,200 mg PO DAILY@1800 RF: 0 warfarin 2.5 mg tablet 2.5 mg PO SUTUWEFRSA RF: 0 triamcinolone acetonide [Nasacort] 55 mcg Aerosol,[place] 1 spray INTRANASAL BID RF: 0 azelastine 137 mcg (0.1 %) Aerosol,[place] 1 spray INTRANASAL BID RF: 0 docusate sodium 100 mg Tablet 500 mg PO BID RF: 0 sodium chloride [Saline Nasal] 0.65 % Aerosol,[place] 2 spray INTRANASAL QID PRN (Reason: Nasal Congestion) RF: 0 nystatin 100,000 unit/mL suspension 5 ml PO BID RF: 0 furosemide 40 mg tablet 40 mg PO DAILY Qty: 30 RF: 1 potassium chloride 10 mEq tablet extended release 10 meq PO DAILY Qty: 30 RF: 1 magnesium oxide 400 mg (241.3 mg magnesium) Tablet 400 mg PO QAM Qty: 30 RF: 1 (DME) Oxygen Home Liters Per Minute See Dose Instructions .ROUTE .MEDSUPPLY Qty: 1 RF: 0 isosorbide mononitrate 60 mg tablet extended release 24 hr 60 mg PO HS RF: 0 levalbuterol tartrate 45 mcg/actuation HFA aerosol inhaler 1 puff INHALATION Q4H PRN (Reason: Wheezing) RF: 0 tramadol 50 mg tablet 50 mg PO Q6H PRN (Reason: severe pain) RF: 0 Referrals Referrals: Cate Stone MD [Physician] -
[2021-05-19 15:03] LABS: Prothrombin Time 68.8 Seconds (9.0-12.0)
[2021-05-19 15:05] LABS: Appearance Urine Clear (Clear); Bilirubin Urine Negative (Negative); Blood Urine Negative (Negative); Color Urine Yellow; Glucose Urine UA Negative (Negative); Ketones Urine Negative (Negative); Leukocyte Esterase Urine Negative (Negative); Nitrite Urine Negative (Negative); Protein Urine Negative (Negative); Urobilinogen Urine Negative (Negative); pH Urine 5.5 (4.5-7.5)
[2021-05-19] MEDS ORDERED: PANTOprazole 80 MG in DEXTROSE 5% 100 ML IV ONE (15:48)
[2021-05-19] MEDS ORDERED: LEVALBUTEROL HCL 1.25 MG/3 ML NEB NEB STA (15:48)
[2021-05-19] MEDS ORDERED: PHYTONADIONE 5 MG in SODIUM CHLORIDE 0.9% 50 ML IV ONE (15:48)
[2021-05-19] MEDS ORDERED: PANTOPRAZOLE BOLUS/DRIP 1 EA IV STA (15:48)
--- NOTE | 2021-05-19 18:03 | History & Physical Report ---
Date of Service May 19, 2021 Assessment & Plan (1) Upper GI bleed: Plan: Has been having diarrhea for about 1 week and noted to have black stool for the last few days Went to see her PCP yesterday and noted to have low hemoglobin of 8.2 and a white count elevated to 20.35 She admits to have black tarry stool and ongoing weakness and dizziness with ambulation Hemoglobin noted to be 7.8 in the emergency room and INR is elevated to 8.0 She received 5 mg of intravenous vitamin K and She was started with intravenous Protonix and will get units of blood transfusion We will check H&H every 6 hourly GI consult for possible endoscopy tomorrow We will keep her n.p.o. after midnight (2) Generalized weakness: Plan: Likely secondary to ongoing GI bleed with low hemoglobin (3) Breath shortness: Plan: Could be secondary to low hemoglobin and is contributed by known history of chronic systolic heart failure (4) Leukocytosis: Plan: She has been on prednisone for asthma exacerbation and currently on 15 mg daily Leukocytosis likely secondary to prednisone use and is complicated by stress due to GI bleed Will not give any antibiotic (5) Diastolic heart failure secondary to hypertension: Plan: Chest x-ray is not showing any fluid overload She takes 40 of Lasix daily She has bilateral leg edema without any fluid overload clinically She will get Lasix 40 mg intravenously in between transfusion today (6) Asthma, moderate persistent: Plan: No exacerbation at this time We will hold her prednisone for now (7) History of breast cancer: Plan: Continue tamoxifen (8) CKD (chronic kidney disease), stage III: Plan: History of chronic kidney disease stage III-IV Increasing BUN and creatinine likely contributed by upper GI bleed Will monitor kidney function (9) Hypothyroidism (acquired): Plan: Continue with replacement therapy (10) PAF (paroxysmal atrial fibrillation): Plan: Rate is controlled Has been on Coumadin as anticoagulation DVT prophylaxis Supratherapeutic INR Received intravenous vitamin K We will monitor INR No pharmacologic anticoagulation for now CODE STATUS Full History of Present Illness Chief Complaint: Generalized weakness, dizziness with ambulation, abdominal discomfort with diarrhea and black stool for the last 1 week Primary Care Provider: Urszula Calvert MD She is an 89-year-old female with significant past medical history including moderately persistent asthma, diastolic heart failure, hypertensive heart disease, secondary hyperparathyroidism, history of thyroid cancer, chronic kidney disease stage IV, paroxysmal atrial fibrillation on anticoagulation, hypothyroidism and other medical condition as mentioned below apparently has been complaining of diarrhea off and on for the last 1 week. She has associated weakness and dizziness and noted to have black stool for the last day or 2. She went to see her primary care provider and following an abnormal blood test especially low hemoglobin and increased white count she was sent to emergency room for further evaluation. Apparently she has been on high-dose tapering steroid and doxycycline on and off for a while for asthma exacerbation and bronchitis. She has been taking 15 mg a day recently, she denies to taking any NSAID is alert and her usual aspirin. She has generalized bruising and also leg edema. Recently she has been having more weakness and shortness of breath on minimal exertion. She noted to have black stool for the last 2 to 3 days. Denies any chest pain and/or palpitation. Does have abdominal discomfort without pain and without any nausea and or vomiting. Diarrhea on and off as mentioned earlier for the last 1 week and recent black tarry stool. Allergies Allergy/AdvReac Type Severity Reaction Status Date / Time dipyridamole Allergy Severe ANAPHYLAXIS Verified 11/15/20 16:03 edetic acid Allergy Severe ANAPHYLAXIS Verified 11/15/20 16:03 propylene glycol Allergy Severe ANAPHYLAXIS Verified 11/15/20 16:03 regadenoson Allergy Severe ANAPHYLAXIS Verified 11/15/20 16:03 NSAIDS (Non-Steroidal Allergy Mild per Verified 11/15/20 16:03 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, periodontist recommended not to take sulfamethoxazole Allergy Mild RASH Verified 11/15/20 16:03 trimethoprim Allergy Mild RASH Verified 11/15/20 16:03 amlodipine Allergy Unknown Unverified 11/15/20 16:03 amoxicillin Allergy Rash Unverified 11/15/20 16:03 azithromycin Allergy Unknown Unverified 11/15/20 16:03 cefuroxime [From Ceftin] Allergy Diarrhea Unverified 11/15/20 16:03 ipratropium Allergy Unknown Unverified 11/15/20 16:03 Sulfa (Sulfonamide Allergy Hives Unverified 11/15/20 16:03 Antibiotics) Home Medications Medication Instructions Recorded Confirmed Type allopurinol 100 mg tablet 200 mg PO DAILY 02/19/19 11/15/20 History amoxicillin 500 mg capsule 500 mg PO BID PRN 02/19/19 11/15/20 History aspirin 81 mg tablet,delayed 81 mg PO DAILY 02/19/19 11/15/20 History release (Aspirin Low Dose) atorvastatin 40 mg tablet 40 mg PO DAILY@1800 02/19/19 11/15/20 History azelastine 137 mcg (0.1 %) nasal 1 spray INTRANASAL BID 02/19/19 11/15/20 History spray aerosol benzonatate 100 mg capsule 100 mg PO TID PRN 02/19/19 11/15/20 History budesonide 0.5 mg/2 mL suspension 0.5 mg INHALATION BID 02/19/19 11/15/20 History for nebulization calcitonin (salmon) 200 1 spray INTRANASAL DAILY 02/19/19 11/15/20 History unit/actuation nasal spray calcium carbonate 600 mg calcium 1,200 mg PO DAILY@1800 02/19/19 11/15/20 History (1,500 mg) tablet carvedilol 25 mg tablet (Coreg) 12.5 mg PO BID 02/19/19 11/15/20 History cholecalciferol (vitamin D3) 25 2,000 unit PO DAILY 02/19/19 11/15/20 History mcg (1,000 unit) capsule (Vitamin D3) docusate sodium 100 mg tablet 500 mg PO BID 02/19/19 11/15/20 History escitalopram oxalate 10 mg tablet 5 mg PO DAILY 02/19/19 11/15/20 History (Lexapro) fexofenadine 180 mg tablet 180 mg PO DAILY 02/19/19 11/15/20 History hydralazine 10 mg tablet 10 mg PO BID PRN 02/19/19 11/15/20 History iron-vit B gpxs-Q-wcw-liver ex 1 tab PO MOWEFR 02/19/19 11/15/20 History tablet levalbuterol HCl 1.25 mg/3 mL 1.25 mg INHALATION TID 02/19/19 11/15/20 History solution for nebulization (Xopenex) levothyroxine 150 mcg capsule 150 mcg PO DAILY 02/19/19 11/15/20 History losartan 50 mg tablet 50 mg PO HS@2200 02/19/19 11/15/20 History montelukast 10 mg tablet 10 mg PO DAILY@1800 02/19/19 11/15/20 History nitroglycerin 0.4 mg sublingual 0.4 mg BUCCAL DAILY PRN 10/08/19 07/04/21 History tablet (Nitrostat) nystatin 100,000 unit/mL oral 5 ml PO BID 02/19/19 11/15/20 History suspension pantoprazole 40 mg tablet,delayed 40 mg PO BID 02/19/19 11/15/20 History release (Protonix) prednisone 10 mg tablets in a dose 10 mg PO DIRECTED PRN 02/19/19 11/15/20 History pack sodium chloride 0.65 % nasal spray 2 spray INTRANASAL QID PRN 02/19/19 11/15/20 History aerosol (Saline Nasal) spironolactone 25 mg tablet 12.5 mg PO DAILY@0900 02/19/19 11/15/20 History sucralfate 1 gram tablet (Carafate) 1 g PO QID PRN 02/19/19 11/15/20 History tamoxifen 20 mg tablet 20 mg PO DAILY 02/19/19 11/15/20 History triamcinolone acetonide 55 mcg 1 spray INTRANASAL BID 02/19/19 11/15/20 History nasal spray aerosol (Nasacort) warfarin 2.5 mg tablet 2.5 mg PO SUTUWEFRSA 02/19/19 11/15/20 History warfarin 2.5 mg tablet 3.75 mg PO MOTH 02/19/19 11/15/20 History Oxygen Home #1 ea 02/23/19 Rx furosemide 40 mg tablet 40 mg PO DAILY #30 tab 02/23/19 11/15/20 Rx magnesium oxide 400 mg (241.3 mg 400 mg PO QAM #30 tab 02/23/19 11/15/20 Rx magnesium) tablet potassium chloride 10 mEq 10 meq PO DAILY #30 tab 02/23/19 11/15/20 Rx tablet,extended release isosorbide mononitrate 60 mg 60 mg PO HS 11/15/20 11/15/20 History tablet,extended release 24 hr levalbuterol tartrate 45 1 puff INHALATION Q4H PRN 11/15/20 11/15/20 History mcg/actuation aerosol inhaler tramadol 50 mg tablet 50 mg PO Q6H PRN 11/15/20 11/15/20 History Past Med/Surg History Medical History (Updated 05/19/21 @ 17:57 by Magi Pruett MD) Anticoagulated on Coumadin Anxiety Asthma, moderate persistent Chronic diastolic CHF (congestive heart failure) CKD (chronic kidney disease), stage III Dyslipidemia GERD (gastroesophageal reflux disease) Gout Heart disease "nonobstructive disease per cath 2011" History of breast cancer Hypothyroidism (acquired) "s/p thyroidectomy and radioiodine therapy for cancer treatment" Hysterectomy (02/22/13) IBS (irritable bowel syndrome) Labile hypertension Osteoporosis (02/22/13) PAF (paroxysmal atrial fibrillation) 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 Father , Passed age 50 of [place] No problems noted. Brother Lung fibrosis Brother , Passed age 63 of allergic reaction to antibiotics No problems noted. Sister , Passed age 83 of "electrolyte disturbances" DCIS (ductal carcinoma in situ) Sister , Passed age 84 from post surgical complications No problems noted. Sister No problems noted. Daughter No problems noted. Daughter No problems noted. Son No problems noted. 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) Feels Safe at Home: Yes caffeine: No during the past year weight has: remained stable Assistive Devices: Walker Review of Systems Review of Systems: All systems reviewed & are unremarkable except as noted in HPI & below Respiratory: Shortness of breath on exertion Gastrointestinal: Abdominal discomfort without any pain Physical Exam Physical Exam: Lying in bed comfortably but very anxious and pale looking Constitutional: well developed, well nourished, + ill appearing and + obese Eyes: PERRL, conjunctivae normal, anicteric sclerae ENMT: external ear and nose normal, oropharynx normal Neck: trachea midline, no thyromegaly Respiratory: no respiratory distress Auscultation: + diminished lung sounds, + crackles (At the bases) and + wheezes (Minimal wheezing anteriorly) Cardiovascular: Rate/Rhythm: regular rate and regular rhythm; not tachycardic Heart Sounds: normal S1 and normal S2; no murmur Extremities: + edema (1+ edema bilaterally) Gastrointestinal (Abdomen): Inspection/Auscultation: normal bowel sounds; abdomen not distended Percussion/Palpation: + abdomen tender (Minimally tender left lower quadrant) and abdomen soft Musculoskeletal: No acute arthritis in any joint Neurologic: Alert, awake and oriented x3. Generally weak but no focal weakness Lymphatic: no cervical or axillary lymphadenopathy Results & Data Results & Data ([facility]) Vital Signs (Past 12 Hours) Vital Signs Temp Pulse Pulse Resp BP BP Pulse Ox 05/19/21 17:45 36.8 C 70 16 154/77 H 95 05/19/21 17:36 101 H 22 153/96 H 99 05/19/21 17:21 36.8 C 71 16 175/80 H 91 05/19/21 15:10 74 16 134/102 H 100 05/19/21 12:43 94 05/19/21 11:58 36.9 C 67 16 127/57 L 99 Laboratory Results Short CBC 05/19/21 Range/Units 12:52 WBC 18.38 H (4.8-10.8) K/uL Hgb 7.8 L (12.0-16.0) g/dL Hct 24.3 L (37-47) % Plt Count 254 (130-400) K/uL BMP 05/19/21 12:52 Sodium 137 Potassium 3.8 Chloride 102 Carbon Dioxide 28 BUN 60 H Creatinine 1.61 H Glucose 119 H Calcium 8.8 Cardiac Enzymes 05/19/21 Range/Units 12:52 Troponin I 0.019 (0-0.045) ng/ml Liver Function 05/19/21 Range/Units 12:52 Total Bilirubin 0.5 (0.2-1) mg/dl AST 16 (15-37) U/L ALT 26 (12-78) Alkaline Phosphatase 44 L (45-117) U/L Albumin 2.6 L (3.4-5.0) gm/dl Urine 05/19/21 Range/Units 14:45 Urine Color Yellow Urine Appearance Clear (Clear) Urine pH 5.5 (4.5-7.5) Ur Specific [place] 1.010 (1.000-1.030) Urine Protein Negative (Negative) Urine Glucose (UA) Negative (Negative) Medications Administered Current Inpatient Medications Sodium Chloride (Nss) 250 mls @ 15 mls/hr IV .[id number] PRN PRN Reason: For Transfusion Stop: 05/20/21 00:41 Pantoprazole Sodium 40 mg/ (Dextrose) 100 mls @ 20 mls/hr IV Q5H CHETAN Stop: 06/18/21 16:14 (1) CKD (chronic kidney disease), stage III Chronic kidney disease stage 3 subtype: stage 3b (GFR 30-44) Qualified Code(s): N18.32 - Chronic kidney disease, stage 3b
[2021-05-19] MEDS ORDERED: FUROSEMIDE 40 MG/4 ML VIAL IV SCH (18:45)
[2021-05-19] MEDS: PANTOprazole 40 MG in DEXTROSE 5% 100 ML IV SCH ×2 (19:36→23:25)
[2021-05-19 20:18] LABS: Hematocrit (blood only) 29.1 % (37-47); Hemoglobin 9.4 g/dL (12.0-16.0)
[2021-05-19 20:29] LABS: INR 2.2 (0.9-1.1); Prothrombin Time 21.4 Seconds (9.0-12.0)
[2021-05-19] MEDS ORDERED: SODIUM CHLORIDE 0.65% NA SOLN 45 ML (OCEAN) PRN (21:52)
[2021-05-19] MEDS ORDERED: LEVALBUTEROL TARTRATE 15 GM HFA.AER.AD INH PRN (21:52)
[2021-05-19] MEDS ORDERED: NITROGLYCERIN SL 0.4 MG/TAB TAB SL PRN (21:52)
[2021-05-19] MEDS ORDERED: SUCRALFATE 1 GM TAB PO PRN (21:52)
[2021-05-19] MEDS: AZELASTINE HCL 0.1% NASAL 200 SPRAYS/27,400 MCG BTL SCH (23:15)
[2021-05-19] MEDS: ATORVASTATIN 40 MG TAB PO SCH (23:15)
[2021-05-19] MEDS: CALCIUM CARBONATE 1250MG TAB PO SCH (23:16)
[2021-05-19] MEDS: carvediloL 12.5 MG TAB PO SCH (23:16)
[2021-05-19] MEDS: MONTELUKAST SODIUM 10 MG TABLET PO SCH (23:17)
[2021-05-19] MEDS: ISOSORBIDE MONO EXTENDED REL 60 MG TABCR PO SCH (23:17)
[2021-05-19] MEDS: TRIAMCINOLONE ACET NASAL SPRAY 10.8ML BTL SCH (23:18)
[2021-05-20] MEDS: LEVALBUTEROL HCL 1.25 MG/3 ML NEB INH SCH ×5 (00:15→19:33)
[2021-05-20] MEDS: BUDESONIDE 0.5 MG/2 ML VIAL (PULMICORT) INH SCH ×4 (00:15→19:33)
[2021-05-20 00:43] LABS: Hematocrit (blood only) 28.5 % (37-47); Hemoglobin 9.3 g/dL (12.0-16.0)
[2021-05-20] MEDS: PANTOprazole 40 MG in DEXTROSE 5% 100 ML IV SCH ×5 (04:34→23:52)
[2021-05-20] MEDS: carvediloL 12.5 MG TAB PO SCH ×2 (05:10→17:58)
[2021-05-20] MEDS: LEVOTHYROXINE SODIUM 150 MCG TABLET PO SCH (05:10)
[2021-05-20 06:18] LABS: Basophils # (auto) 0.03 K/uL (0-0.2); Basophils % (auto) 0.2 %; Eosinophils # (auto) 0.08 K/uL (0-0.5); Eosinophils % (auto) 0.5 %; Hematocrit (blood only) 28.2 % (37-47); Hemoglobin 9.2 g/dL (12.0-16.0); Immature Granulocytes % (auto) 1.2 %; Lymphocytes % (auto) 11.6 %; Mean Corpuscular Hemoglobin 30.7 pg (25-34); Mean Corpuscular Hgb Conc 32.6 g/dL (32-36); Mean Platelet Volume 9.9 fL (7.4-10.4); Monocytes # (auto) 1.36 K/uL (0.11-0.59); Monocytes % (auto) 8.3 %; Neutrophils # (auto) 12.76 K/uL (1.4-6.5); Neutrophils % (auto) 78.2 %; Platelet Count 211 K/uL (130-400); RDW Coefficient of Variation 15.6 % (11.5-14.5); RDW Standard Deviation 53.3 fL (36.4-46.3); White Blood Count 16.33 K/uL (4.8-10.8)
[2021-05-20 06:32] LABS: INR 1.3 (0.9-1.1); Prothrombin Time 12.6 Seconds (9.0-12.0)
[2021-05-20 07:01] LABS: BUN Creatinine Ratio 35.9 (10-20); Calcium 8.9 mg/dl (8.5-10.1); Creatinine Clr Calc Pharmacy 22.4 ml/min; Est GFR (African American) 36.9 ml/min; Est GFR (Non-African American) 31.8 ml/min; Potassium 3.2 mmol/L (3.5-5.1)
[2021-05-20] MEDS: AZELASTINE HCL 0.1% NASAL 200 SPRAYS/27,400 MCG BTL SCH ×2 (08:09→20:07)
[2021-05-20] MEDS: TRIAMCINOLONE ACET NASAL SPRAY 10.8ML BTL SCH ×2 (08:10→20:07)
[2021-05-20] MEDS: CALCITONIN SALMON NA 200 IU/AC 3.7 ML BTL SCH (08:11)
[2021-05-20] MEDS: ESCITALOPRAM OXALATE 10 MG TAB PO SCH (08:11)
[2021-05-20] MEDS: CHOLECALCIFEROL 1,000 UNITS 25 MCG TAB PO SCH (08:11)
[2021-05-20] MEDS: SPIRONOLACTONE 12.5 MG TAB PO SCH (08:11)
[2021-05-20] MEDS: FEXOFENADINE HCL 180 MG TAB PO SCH (08:11)
--- NOTE | 2021-05-20 10:05 | Gastrointestinal Consultation ---
Date of Consultation May 20, 2021 Assessment & Plan (1) Upper GI bleed: 89 year old female admitted w/ dark stools, elevated INR and anemia. INR revered from 8 --> 1, s/p RBC x 1 unit w/ response 7 --> 9 Anemia likely superimposed by supratherapuetic INR Continue conservative management. IV PPI Bolus and and drip Hold coumadin Trend HGB Monitor stools Will discuss with attending and primary team Thank you for allowing us to participate in the care of this patient. Please call with any acute changes, questions or concerns. Please see addendum below with additional recommendation from my supervising physician. Supervising Physician Co-Signing Physician Notes Attending attestation I have seen, examined this patient, and agree with the findings and above by our mid-level provider SOPHIE Springer, with the following additions: - No signs of GI bleeding, severe ecchymosis everywhere on legs, arms, and large one over left eye. - Great response with only 1 unit of blood - Would continue PPI - Ok for diet - No plans for endosocopy, all likely related to INR of 8, overall high risk for anticogulation given falls etc. History of Present Illness Reason for Consultation: anemia, dark stools Requesting Physician: Seble Attending Physician: Magi Pruett MD History of Present Illness 89-year-old female with history of persistent asthma, diastolic heart failure, hypertensive heart disease, secondary hyperparathyroidism, history of thyroid cancer, chronic kidney disease stage IV, paroxysmal atrial fibrillation on anticoagulation, hypothyroidism admitted with anemia, dark stools, INR 8 Pt was seen and evaluated, chart reviewed. She notes for the last 48 hours or so she has had dark, looser, urgent BMs. Stoosl were dark brown/black. Denies any hematochezia. 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 INR reversed, transfused 1 unit RBC w/ INR 1.3 and HGB 9.2. No further evidence of dark stools since admission. 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 sulfamethoxazole Allergy Mild RASH Verified 05/19/21 18:23 trimethoprim Allergy Mild RASH Verified 05/19/21 18:23 amlodipine Allergy Unknown Unverified 05/19/21 18:23 amoxicillin Allergy Rash Unverified 05/19/21 18:23 azithromycin Allergy Unknown Unverified 05/19/21 18:23 cefuroxime [From Ceftin] Allergy Diarrhea Unverified 05/19/21 18:23 ipratropium Allergy Unknown Unverified 05/19/21 18:23 Sulfa (Sulfonamide Allergy Hives Unverified 05/19/21 18:23 Antibiotics) Home Medications Medication Instructions Recorded Confirmed Type allopurinol 100 mg tablet 200 mg PO .DAILY@9AM 02/19/19 05/19/21 History aspirin 81 mg tablet,delayed 81 mg PO .DAILY@9AM 02/19/19 05/19/21 History release (Aspirin Low Dose) atorvastatin 40 mg tablet 40 mg PO DAILY@1800 02/19/19 05/19/21 History azelastine 137 mcg (0.1 %) nasal 1 spray INTRANASAL .BID @ 8AM & 7PM 02/19/19 05/19/21 History spray aerosol budesonide 0.5 mg/2 mL suspension 0.5 mg INHALATION BID 02/19/19 05/19/21 History for nebulization calcium carbonate 600 mg calcium 600 mg PO DAILY@1800 02/19/19 05/19/21 History (1,500 mg) tablet carvedilol 25 mg tablet (Coreg) 12.5 mg PO .BID@6AM &6PM 02/19/19 05/19/21 History cholecalciferol (vitamin D3) 25 2,000 unit PO 3XWK 02/19/19 05/19/21 History mcg (1,000 unit) capsule (Vitamin D3) escitalopram oxalate 10 mg tablet 5 mg PO .DAILY@9AM 02/19/19 05/19/21 History (Lexapro) fexofenadine 180 mg tablet 180 mg PO .DAILY@9AM /12/3105/19/21 History iron-vit B texl-J-dfz-liver ex 1 tab PO 4XWK 02/19/19 05/19/21 History tablet levalbuterol HCl 1.25 mg/3 mL 1.25 mg INHALATION .Q4-5HR 02/19/19 05/19/21 History solution for nebulization (Xopenex) levothyroxine 150 mcg capsule 150 mcg PO 4XWK 02/19/19 05/19/21 History losartan 50 mg tablet 50 mg PO HS@2100 02/19/19 05/19/21 History montelukast 10 mg tablet 10 mg PO DAILY@1800 02/19/19 05/19/21 History nitroglycerin 0.4 mg sublingual 0.4 mg BUCCAL .UD PRN 02/19/19 05/19/21 History tablet (Nitrostat) nystatin 100,000 unit/mL oral 5 ml PO BID 02/19/19 05/19/21 History suspension pantoprazole 40 mg tablet,delayed 40 mg PO BID 02/19/19 05/19/21 History release (Protonix) sodium chloride 0.65 % nasal spray 2 spray INTRANASAL QID PRN 02/19/19 05/19/21 History aerosol (Saline Nasal) spironolactone 25 mg tablet 12.5 mg PO DAILY@0900 02/19/19 05/19/21 History tamoxifen 20 mg tablet 20 mg PO .DAILY@0900 02/19/19 05/19/21 History triamcinolone acetonide 55 mcg 1 spray INTRANASAL BID 02/19/19 05/19/21 History nasal spray aerosol (Nasacort) isosorbide mononitrate 60 mg 60 mg PO .DAILY@9PM 11/15/20 05/19/21 History tablet,extended release 24 hr levalbuterol tartrate 45 1 puff INHALATION Q4H PRN 11/15/20 05/19/21 History mcg/actuation aerosol inhaler acetaminophen 500 mg tablet 500 mg PO TID 05/19/21 05/19/21 History furosemide 40 mg tablet 40 mg PO .DAILY@9AM 05/19/21 05/19/21 History levothyroxine 150 mcg tablet 225 mcg PO .3XW 05/19/21 05/19/21 History magnesium oxide 400 mg (241.3 mg 400 mg PO .DAILY@9AM 05/19/21 05/19/21 History magnesium) tablet potassium chloride 10 mEq 10 meq PO .DAILY@9AM 05/19/21 05/19/21 History tablet,extended release prednisone 10 mg tablet 10 mg PO DAILY 05/19/21 05/19/21 History prednisone 5 mg tablet 0 mg PO .DAILY/UD 05/19/21 05/19/21 History sucralfate 100 mg/mL oral 10 ml PO .BID@1100 & 1600 05/19/21 05/19/21 History suspension Patient History Medical History (Updated 05/19/21 @ 17:57 by Magi Pruett MD) Anticoagulated on Coumadin Anxiety Asthma, moderate persistent Chronic diastolic CHF (congestive heart failure) CKD (chronic kidney disease), stage III Dyslipidemia GERD (gastroesophageal reflux disease) Gout Heart disease "nonobstructive disease per cath 2011" History of breast cancer Hypothyroidism (acquired) "s/p thyroidectomy and radioiodine therapy for cancer treatment" Hysterectomy (02/22/13) IBS (irritable bowel syndrome) Labile hypertension Osteoporosis (02/22/13) PAF (paroxysmal atrial fibrillation) 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 Father , Passed age 50 of [place] No problems noted. Brother Lung fibrosis Brother , Passed age 63 of allergic reaction to antibiotics No problems noted. Sister , Passed age 83 of "electrolyte disturbances" DCIS (ductal carcinoma in situ) Sister , Passed age 84 from post surgical complications No problems noted. Sister No problems noted. Daughter No problems noted. Daughter No problems noted. Son No problems noted. 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) Other Information That Helps Us Care for You: No Feels Safe at Home: Yes Safety Concerns: Feels Safe At This Time caffeine: No during the past year weight has: remained stable Assistive Devices: Denture - Upper and Denture - Lower Review of Systems Review of Systems: All systems reviewed & are unremarkable except as noted in HPI & below Physical Exam Constitutional: WD/WN, vitals as above Neck: trachea midline, no thyromegaly Respiratory: normal respiratory effort, lungs clear to auscultation Cardiovascular: RRR, no murmur, no edema Skin: no rashes, warm and dry Results & Data ([facility]) Vital Signs (Past 12 Hours) Vital Signs Temp Pulse Resp BP BP Pulse Ox 05/20/21 08:11 36.5 C 69 13 158/80 H 100 05/20/21 07:13 71 16 100 05/20/21 05:06 36.6 C 70 18 163/79 H 95 05/20/21 00:23 72 18 99 05/19/21 22:38 37.0 C 61 19 157/79 H 100 Laboratory Results 05/20/21 05/20/21 05/20/21 Range/Units 05:57 05:57 05:57 WBC 16.33 H (4.8-10.8) K/uL RBC 3.00 L (4.2-5.4) M/uL Hgb 9.2 L (12.0-16.0) g/dL Hct 28.2 L (37-47) % MCV 94.0 (80-100) fL MCH 30.7 (25-34) pg MCHC 32.6 (32-36) g/dL RDW Std Deviation 53.3 H (36.4-46.3) fL RDW Coeff of Chrissy 15.6 H (11.5-14.5) % Plt Count 211 (130-400) K/uL MPV 9.9 (7.4-10.4) fL Immature Gran % (Auto) 1.2 % Neut % (Auto) 78.2 % Lymph % (Auto) 11.6 % Stephenson % (Auto) 8.3 % Eos % (Auto) 0.5 % Baso % (Auto) 0.2 % Neut # (Auto) 12.76 H (1.4-6.5) K/uL Lymph # (Auto) 1.90 (1.2-3.4) K/uL Stephenson # (Auto) 1.36 H (0.11-0.59) K/uL Eos # (Auto) 0.08 (0-0.5) K/uL Baso # (Auto) 0.03 (0-0.2) K/uL Immature Gran # (Auto) 0.20 H (0.00-0.02) K/uL Poikilocytosis PT 12.6 H (9.0-12.0) Seconds INR 1.3 H (0.9-1.1) Sodium 139 (136-145) mmol/L Potassium 3.2 L D (3.5-5.1) mmol/L Chloride 101 (98-107) mmol/L Carbon Dioxide 30 (21-32) mmol/L Anion Gap 8.0 (3-11) BUN 52 H (7-18) mg/dl Creatinine 1.45 H (0.6-1.2) mg/dl Est Cr Clr Drug Dosing 22.4 Est GFR ( Amer) 36.9 ml/min Est GFR (Non-Af Amer) 31.8 ml/min BUN/Creatinine Ratio 35.9 H (10-20) Glucose 105 H (70-99) mg/dl Lactate (0.4-2.0) mmol/L Calcium 8.9 (8.5-10.1) mg/dl Total Bilirubin (0.2-1) mg/dl AST (15-37) U/L ALT (12-78) Alkaline Phosphatase (45-117) U/L Troponin I (0-0.045) ng/ml Total Protein (6.4-8.2) gm/dl Albumin (3.4-5.0) gm/dl Globulin (2.5-4.0) gm/dl Albumin/Globulin Ratio (0.9-2) Procalcitonin (0-0.5) ng/ml TSH (0.300-4.500) uIu/ml Urine Color Urine Appearance (Clear) Urine pH (4.5-7.5) Ur Specific [place] (1.000-1.030) Urine Protein (Negative) Urine Glucose (UA) (Negative) Urine Ketones (Negative) Urine Blood (Negative) Urine Nitrite (Negative) Urine Bilirubin (Negative) Urine Urobilinogen (Negative) Ur Leukocyte Esterase (Negative) SARS-CoV-2, RNA, NAAT (NEGATIVE) Blood Type Blood Type Recheck Antibody Screen Crossmatch 05/20/21 05/19/21 05/19/21 Range/Units 00:29 Unknown 20:11 WBC (4.8-10.8) K/uL RBC (4.2-5.4) M/uL Hgb 9.3 L (12.0-16.0) g/dL Hct 28.5 L (37-47) % MCV (80-100) fL MCH (25-34) pg MCHC (32-36) g/dL RDW Std Deviation (36.4-46.3) fL RDW Coeff of Chrissy (11.5-14.5) % Plt Count (130-400) K/uL MPV (7.4-10.4) fL Immature Gran % (Auto) % Neut % (Auto) % Lymph % (Auto) % Stephenson % (Auto) % Eos % (Auto) % Baso % (Auto) % Neut # (Auto) (1.4-6.5) K/uL Lymph # (Auto) (1.2-3.4) K/uL Stephenson # (Auto) (0.11-0.59) K/uL Eos # (Auto) (0-0.5) K/uL Baso # (Auto) (0-0.2) K/uL Immature Gran # (Auto) (0.00-0.02) K/uL Poikilocytosis PT 21.4 H (9.0-12.0) Seconds INR 2.2 H (0.9-1.1) Sodium (136-145) mmol/L Potassium (3.5-5.1) mmol/L Chloride (98-107) mmol/L Carbon Dioxide (21-32) mmol/L Anion Gap (3-11) BUN (7-18) mg/dl Creatinine (0.6-1.2) mg/dl Est Cr Clr Drug Dosing Est GFR ( Amer) ml/min Est GFR (Non-Af Amer) ml/min BUN/Creatinine Ratio (10-20) Glucose (70-99) mg/dl Lactate (0.4-2.0) mmol/L Calcium (8.5-10.1) mg/dl Total Bilirubin (0.2-1) mg/dl AST (15-37) U/L ALT (12-78) Alkaline Phosphatase (45-117) U/L Troponin I (0-0.045) ng/ml Total Protein (6.4-8.2) gm/dl Albumin (3.4-5.0) gm/dl Globulin (2.5-4.0) gm/dl Albumin/Globulin Ratio (0.9-2) Procalcitonin (0-0.5) ng/ml TSH (0.300-4.500) uIu/ml Urine Color Urine Appearance (Clear) Urine pH (4.5-7.5) Ur Specific [place] (1.000-1.030) Urine Protein (Negative) Urine Glucose (UA) (Negative) Urine Ketones (Negative) Urine Blood (Negative) Urine Nitrite (Negative) Urine Bilirubin (Negative) Urine Urobilinogen (Negative) Ur Leukocyte Esterase (Negative) SARS-CoV-2, RNA, NAAT NEGATIVE (NEGATIVE) Blood Type Blood Type Recheck Antibody Screen Crossmatch 05/19/21 05/19/21 05/19/21 Range/Units 20:11 16:16 15:26 WBC (4.8-10.8) K/uL RBC (4.2-5.4) M/uL Hgb 9.4 L (12.0-16.0) g/dL Hct 29.1 L (37-47) % MCV (80-100) fL MCH (25-34) pg MCHC (32-36) g/dL RDW Std Deviation (36.4-46.3) fL RDW Coeff of Chrissy (11.5-14.5) % Plt Count (130-400) K/uL MPV (7.4-10.4) fL Immature Gran % (Auto) % Neut % (Auto) % Lymph % (Auto) % Stephenson % (Auto) % Eos % (Auto) % Baso % (Auto) % Neut # (Auto) (1.4-6.5) K/uL Lymph # (Auto) (1.2-3.4) K/uL Stephenson # (Auto) (0.11-0.59) K/uL Eos # (Auto) (0-0.5) K/uL Baso # (Auto) (0-0.2) K/uL Immature Gran # (Auto) (0.00-0.02) K/uL Poikilocytosis PT (9.0-12.0) Seconds INR (0.9-1.1) Sodium (136-145) mmol/L Potassium (3.5-5.1) mmol/L Chloride (98-107) mmol/L Carbon Dioxide (21-32) mmol/L Anion Gap (3-11) BUN (7-18) mg/dl Creatinine (0.6-1.2) mg/dl Est Cr Clr Drug Dosing Est GFR ( Amer) ml/min Est GFR (Non-Af Amer) ml/min BUN/Creatinine Ratio (10-20) Glucose (70-99) mg/dl Lactate 1.5 (0.4-2.0) mmol/L Calcium (8.5-10.1) mg/dl Total Bilirubin (0.2-1) mg/dl AST (15-37) U/L ALT (12-78) Alkaline Phosphatase (45-117) U/L Troponin I (0-0.045) ng/ml Total Protein (6.4-8.2) gm/dl Albumin (3.4-5.0) gm/dl Globulin (2.5-4.0) gm/dl Albumin/Globulin Ratio (0.9-2) Procalcitonin (0-0.5) ng/ml TSH (0.300-4.500) uIu/ml Urine Color Urine Appearance (Clear) Urine pH (4.5-7.5) Ur Specific [place] (1.000-1.030) Urine Protein (Negative) Urine Glucose (UA) (Negative) Urine Ketones (Negative) Urine Blood (Negative) Urine Nitrite (Negative) Urine Bilirubin (Negative) Urine Urobilinogen (Negative) Ur Leukocyte Esterase (Negative) SARS-CoV-2, RNA, NAAT (NEGATIVE) Blood Type Blood Type Recheck A Positive Antibody Screen Crossmatch 05/19/21 05/19/21 05/19/21 Range/Units 15:26 14:45 12:52 WBC (4.8-10.8) K/uL RBC (4.2-5.4) M/uL Hgb (12.0-16.0) g/dL Hct (37-47) % MCV (80-100) fL MCH (25-34) pg MCHC (32-36) g/dL RDW Std Deviation (36.4-46.3) fL RDW Coeff of Chrissy (11.5-14.5) % Plt Count (130-400) K/uL MPV (7.4-10.4) fL Immature Gran % (Auto) % Neut % (Auto) % Lymph % (Auto) % Stephenson % (Auto) % Eos % (Auto) % Baso % (Auto) % Neut # (Auto) (1.4-6.5) K/uL Lymph # (Auto) (1.2-3.4) K/uL Stephenson # (Auto) (0.11-0.59) K/uL Eos # (Auto) (0-0.5) K/uL Baso # (Auto) (0-0.2) K/uL Immature Gran # (Auto) (0.00-0.02) K/uL Poikilocytosis PT 68.8 H (9.0-12.0) Seconds INR 8.0 H* (0.9-1.1) Sodium (136-145) mmol/L Potassium (3.5-5.1) mmol/L Chloride (98-107) mmol/L Carbon Dioxide (21-32) mmol/L Anion Gap (3-11) BUN (7-18) mg/dl Creatinine (0.6-1.2) mg/dl Est Cr Clr Drug Dosing Est GFR ( Amer) ml/min Est GFR (Non-Af Amer) ml/min BUN/Creatinine Ratio (10-20) Glucose (70-99) mg/dl Lactate (0.4-2.0) mmol/L Calcium (8.5-10.1) mg/dl Total Bilirubin (0.2-1) mg/dl AST (15-37) U/L ALT (12-78) Alkaline Phosphatase (45-117) U/L Troponin I (0-0.045) ng/ml Total Protein (6.4-8.2) gm/dl Albumin (3.4-5.0) gm/dl Globulin (2.5-4.0) gm/dl Albumin/Globulin Ratio (0.9-2) Procalcitonin (0-0.5) ng/ml TSH (0.300-4.500) uIu/ml Urine Color Yellow Urine Appearance Clear (Clear) Urine pH 5.5 (4.5-7.5) Ur Specific [place] 1.010 (1.000-1.030) Urine Protein Negative (Negative) Urine Glucose (UA) Negative (Negative) Urine Ketones Negative (Negative) Urine Blood Negative (Negative) Urine Nitrite Negative (Negative) Urine Bilirubin Negative (Negative) Urine Urobilinogen Negative (Negative) Ur Leukocyte Esterase Negative (Negative) SARS-CoV-2, RNA, NAAT (NEGATIVE) Blood Type A Positive Blood Type Recheck Antibody Screen NEGATIVE Crossmatch See Detail 05/19/21 05/19/21 05/19/21 Range/Units 12:52 12:52 12:50 WBC 18.38 H (4.8-10.8) K/uL RBC 2.55 L (4.2-5.4) M/uL Hgb 7.8 L (12.0-16.0) g/dL Hct 24.3 L (37-47) % MCV 95.3 (80-100) fL MCH 30.6 (25-34) pg MCHC 32.1 (32-36) g/dL RDW Std Deviation 53.8 H (36.4-46.3) fL RDW Coeff of Chrissy 15.6 H (11.5-14.5) % Plt Count 254 (130-400) K/uL MPV 9.7 (7.4-10.4) fL Immature Gran % (Auto) 1.5 % Neut % (Auto) 85.3 % Lymph % (Auto) 6.7 % Stephenson % (Auto) 6.2 % Eos % (Auto) 0.1 % Baso % (Auto) 0.2 % Neut # (Auto) 15.69 H (1.4-6.5) K/uL Lymph # (Auto) 1.24 (1.2-3.4) K/uL Stephenson # (Auto) 1.14 H (0.11-0.59) K/uL Eos # (Auto) 0.01 (0-0.5) K/uL Baso # (Auto) 0.03 (0-0.2) K/uL Immature Gran # (Auto) 0.27 H (0.00-0.02) K/uL Poikilocytosis Present PT (9.0-12.0) Seconds INR (0.9-1.1) Sodium 137 (136-145) mmol/L Potassium 3.8 (3.5-5.1) mmol/L Chloride 102 (98-107) mmol/L Carbon Dioxide 28 (21-32) mmol/L Anion Gap 7.0 (3-11) BUN 60 H (7-18) mg/dl Creatinine 1.61 H (0.6-1.2) mg/dl Est Cr Clr Drug Dosing Not Reportable Est GFR ( Amer) 32.5 ml/min Est GFR (Non-Af Amer) 28.1 ml/min BUN/Creatinine Ratio 37.4 H (10-20) Glucose 119 H (70-99) mg/dl Lactate (0.4-2.0) mmol/L Calcium 8.8 (8.5-10.1) mg/dl Total Bilirubin 0.5 (0.2-1) mg/dl AST 16 (15-37) U/L ALT 26 (12-78) Alkaline Phosphatase 44 L (45-117) U/L Troponin I 0.019 (0-0.045) ng/ml Total Protein 5.8 L (6.4-8.2) gm/dl Albumin 2.6 L (3.4-5.0) gm/dl Globulin 3.2 (2.5-4.0) gm/dl Albumin/Globulin Ratio 0.8 L (0.9-2) Procalcitonin 0.16 (0-0.5) ng/ml TSH 0.523 (0.300-4.500) uIu/ml Urine Color Urine Appearance (Clear) Urine pH (4.5-7.5) Ur Specific [place] (1.000-1.030) Urine Protein (Negative) Urine Glucose (UA) (Negative) Urine Ketones (Negative) Urine Blood (Negative) Urine Nitrite (Negative) Urine Bilirubin (Negative) Urine Urobilinogen (Negative) Ur Leukocyte Esterase (Negative) SARS-CoV-2, RNA, NAAT (NEGATIVE) Blood Type Blood Type Recheck Antibody Screen Crossmatch
[2021-05-20] MEDS: POTASSIUM CHLORIDE / WTR 10 MEQ/100 ML PLCT IV SCH ×2 (10:19→11:19)
--- NOTE | 2021-05-20 17:13 | Hospitalist Progress Note ---
Date of Service May 20, 2021 Assessment & Plan (1) Upper GI bleed: Plan: Has been having diarrhea for about 1 week and noted to have black stool for the last few days Went to see her PCP yesterday and noted to have low hemoglobin of 8.2 and a white count elevated to 20.35 She admits to have black tarry stool and ongoing weakness and dizziness with ambulation Hemoglobin noted to be 7.8 in the emergency room and INR is elevated to 8.0 She received 5 mg of intravenous vitamin K and She was started with intravenous Protonix and will get units of blood transfusion We will check H&H every 6 hourly GI consult -appreciate input and recommendation Received 1 unit of PRBC and the hemoglobin is more than 9.2 No more diarrhea and dark black stool No plan to do EGD and the diet has been started Advised to discontinue Coumadin (2) Generalized weakness: Plan: Likely secondary to ongoing GI bleed with low hemoglobin (3) Breath shortness: Plan: Could be secondary to low hemoglobin and is contributed by known history of chronic systolic heart failure No evidence of acute exacerbation of asthma (4) Leukocytosis: Plan: She has been on prednisone for asthma exacerbation and currently on 15 mg daily Leukocytosis likely secondary to prednisone use and is complicated by stress due to GI bleed Will not give any antibiotic Slightly better (5) Diastolic heart failure secondary to hypertension: Plan: Chest x-ray is not showing any fluid overload She takes 40 of Lasix daily She has bilateral leg edema without any fluid overload clinically She will get Lasix 40 mg intravenously in between transfusion today No signs and/or symptoms of fluid overload (6) Asthma, moderate persistent: Plan: No exacerbation at this time We will hold her prednisone for now She has been on high-dose prednisone for the last 8 months or so and has been getting 15 mg daily Plan to discharge him on 10 mg daily for about 2 weeks and then gradual tapering May need to continue 5 to 7.5 mg of prednisone daily given her chronic use of prednisone in the past We will advise 40 mg of prednisone for 5 days for any exacerbation of asthma as an outpatient (7) History of breast cancer: Plan: Continue tamoxifen (8) CKD (chronic kidney disease), stage III: Plan: History of chronic kidney disease stage III-IV Increasing BUN and creatinine likely contributed by upper GI bleed Will monitor kidney function (9) Hypothyroidism (acquired): Plan: Continue with replacement therapy (10) PAF (paroxysmal atrial fibrillation): Plan: Rate is controlled Has been on Coumadin as anticoagulation Remains in sinus rhythm She has been on Coumadin for a long time for an episode of atrial fibrillation lasted for very short period of time in the past Discussed with on-call director of volunteer services and was advised to discontinue Coumadin We will get an appointment with outpatient director of volunteer services for further evaluation DVT prophylaxis Supratherapeutic INR Received intravenous vitamin K We will monitor INR No pharmacologic anticoagulation for now CODE STATUS Full Discharge tomorrow Admission and Anticipated Discharge Date Admission Date: May 19, 2021 Subjective 05/20/2021 The patient was seen and examined in the emergency room in the holding area in presence of the daughter She has been feeling much better and did not have any more bowel movement and or black tarry stool Denies any epigastric pain, no nausea no vomiting Received 1 unit of blood and the hemoglobin is more than 9 Review of Systems Review of Systems: All systems reviewed and are unremarkable except as noted below Gastrointestinal: No abdominal pain, distention, no nausea or vomiting Physical Exam Physical Exam: Lying in bed comfortably Constitutional: well developed, well nourished and + obese; not ill appearing Eyes: PERRL, conjunctivae normal, anicteric sclerae Left forehead bruising about the eyebrow ENMT: external ear and nose normal, oropharynx normal Neck: trachea midline, no thyromegaly Respiratory: no respiratory distress Auscultation: + diminished lung sounds and + wheezes (Minimal wheezing); no crackles Cardiovascular: Rate/Rhythm: regular rate and regular rhythm; not tachycardic Heart Sounds: normal S1 and normal S2; no murmur Extremities: + edema (Face edema bilaterally) Gastrointestinal (Abdomen): Inspection/Auscultation: normal bowel sounds; abdomen not distended Percussion/Palpation: abdomen soft; abdomen nontender Musculoskeletal: No acute arthritis in any joint Skin: Has generalized bruising mostly in the upper and lower extremities Neurologic: Alert, awake and oriented x3. No focal sensory or no motor deficit appreciated Lymphatic: no cervical or axillary lymphadenopathy Results & Data Results & Data ([facility]) Vital Signs (Past 12 Hours) Vital Signs Temp Pulse Resp BP BP Pulse Ox 05/20/21 15:36 37.3 C 76 18 139/86 96 05/20/21 13:47 83 16 98 05/20/21 12:07 36.9 C 77 17 131/87 91 05/20/21 08:11 36.5 C 69 13 158/80 H 100 05/20/21 07:13 71 16 100 05/20/21 05:06 36.6 C 70 18 163/79 H 95 Laboratory Results Short CBC 05/19/21 05/20/21 05/20/21 Range/Units 20:11 00:29 05:57 WBC 16.33 H (4.8-10.8) K/uL Hgb 9.4 L 9.3 L 9.2 L (12.0-16.0) g/dL Hct 29.1 L 28.5 L 28.2 L (37-47) % Plt Count 211 (130-400) K/uL BMP 05/20/21 05:57 Sodium 139 Potassium 3.2 L D Chloride 101 Carbon Dioxide 30 BUN 52 H Creatinine 1.45 H Glucose 105 H Calcium 8.9 Medications Administered Current Inpatient Medications Atorvastatin Calcium (Atorvastatin 40 Mg Tab) 40 mg PO DAILY@1800 [facility] Stop: 06/18/21 21:51 Last Admin: 05/19/21 23:15 Dose: 40 mg Documented by: Azelastine HCl (Azelastine Hcl 0.1% Nasal 200 Sprays/27,400 Mcg Btl) 1 sprays NA BID [facility] Stop: 06/18/21 21:51 Last Admin: 05/20/21 08:09 Dose: 1 sprays Documented by: Budesonide (Budesonide 0.5 Mg/2 Ml Vial (Pulmicort)) 0.5 mg INH BIDR [facility] Stop: 06/18/21 21:51 Last Admin: 05/20/21 07:12 Dose: 0.5 mg Documented by: Calcitonin [place] (Calcitonin [place] Na 200 Iu/Ac 3.7 Ml Btl) 1 sprays NA DAILY [facility] Stop: 06/19/21 08:59 Last Admin: 05/20/21 08:11 Dose: 1 sprays Documented by: Calcium Carbonate (Calcium Carbonate 1250mg Tab) 1,250 mg PO DAILY@1800 [facility] Stop: 06/18/21 21:51 Last Admin: 05/19/21 23:16 Dose: 1,250 mg Documented by: Carvedilol (Carvedilol 12.5 Mg Tab) 12.5 mg PO BID@0600,1800 [facility] Stop: 06/18/21 21:51 Last Admin: 05/20/21 05:10 Dose: 12.5 mg Documented by: Escitalopram Oxalate (Escitalopram Oxalate 10 Mg Tab) 5 mg PO DAILY [facility] Stop: 06/19/21 08:59 Last Admin: 05/20/21 08:11 Dose: 5 mg Documented by: Fexofenadine HCl (Fexofenadine Hcl 180 Mg Tab) 180 mg PO DAILY [facility] Stop: 06/19/21 08:59 Last Admin: 05/20/21 08:11 Dose: 180 mg Documented by: Pantoprazole Sodium 40 mg/ (Dextrose) 100 mls @ 20 mls/hr IV Q5H [facility] Stop: 06/18/21 16:14 Last Admin: 05/20/21 15:17 Dose: 8 mg/hr, 20 mls/hr Documented by: Isosorbide Mononitrate (Isosorbide [place] Extended Rel 60 Mg Tabcr) 60 mg PO HS [facility] Stop: 06/18/21 21:51 Last Admin: 05/19/21 23:17 Dose: 60 mg Documented by: Levalbuterol HCl (Levalbuterol Tartrate 15 Gm Hfa.Aer.Ad) 1 puffs INH Q4H PRN PRN Reason: Wheezing Stop: 06/18/21 21:51 Levalbuterol HCl (Levalbuterol Hcl 1.25 Mg/3 Ml Neb) 1.25 mg INH TIDR [facility]; Protocol Stop: 06/18/21 21:51 Last Admin: 05/20/21 13:47 Dose: 1.25 mg Documented by: Levothyroxine Sodium (Levothyroxine Sodium 150 Mcg Tablet) 150 mcg PO DAILYBB [facility] Stop: 06/19/21 06:29 Last Admin: 05/20/21 05:10 Dose: 150 mcg Documented by: Montelukast Sodium (Montelukast Sodium 10 Mg Tablet) 10 mg PO DAILY@1800 [facility] Stop: 06/18/21 21:51 Last Admin: 05/19/21 23:17 Dose: 10 mg Documented by: Nitroglycerin (Nitroglycerin Sl 0.4 Mg/Tab Tab) 0.4 mg SL DAILY PRN PRN Reason: Chest Pain Stop: 06/18/21 21:51 Sodium Chloride (Sodium Chloride 0.65% Na Soln 45 Ml ([place])) 2 sprays NA QID PRN PRN Reason: Nasal Congestion Stop: 06/18/21 21:51 Spironolactone (Spironolactone 12.5 Mg Tab) 12.5 mg PO DAILY@0900 [facility] Stop: 06/19/21 08:59 Last Admin: 05/20/21 08:11 Dose: 12.5 mg Documented by: Sucralfate (Sucralfate 1 Gm Tab) 1 gm PO QID PRN PRN Reason: Acid Reflux Stop: 06/18/21 21:51 Triamcinolone Acetonide (Triamcinolone Acet Nasal [place] 10.8ml Btl) 1 sprays NA BID [facility] Stop: 06/18/21 21:51 Last Admin: 05/20/21 08:10 Dose: 1 sprays Documented by: Vitamin D (Cholecalciferol 1,000 Units 25 Mcg Tab) 2,000 units PO DAILY [facility] Stop: 06/19/21 08:59 Last Admin: 05/20/21 08:11 Dose: 2,000 units Documented by: (1) CKD (chronic kidney disease), stage III Chronic kidney disease stage 3 subtype: stage 3b (GFR 30-44) Qualified Code(s): N18.32 - Chronic kidney disease, stage 3b
[2021-05-20] MEDS ORDERED: POLYETHYLENE (MIRALAX) 17 GM PACK PO PRN (17:50)
[2021-05-20] MEDS: MONTELUKAST SODIUM 10 MG TABLET PO SCH (17:57)
[2021-05-20] MEDS: CALCIUM CARBONATE 1250MG TAB PO SCH (17:58)
[2021-05-20] MEDS: ATORVASTATIN 40 MG TAB PO SCH (17:58)
[2021-05-20] MEDS: SUCRALFATE 1 GM/10 ML UDC PO SCH (20:07)
[2021-05-20] MEDS: DOCUSATE SODIUM 100 MG CAP PO SCH (20:07)
[2021-05-20] MEDS: ISOSORBIDE MONO EXTENDED REL 60 MG TABCR PO SCH (20:07)
[2021-05-21] MEDS: PANTOprazole 40 MG in DEXTROSE 5% 100 ML IV SCH ×4 (04:28→19:54)
[2021-05-21] MEDS: LEVOTHYROXINE SODIUM 150 MCG TABLET PO SCH (05:52)
[2021-05-21] MEDS: carvediloL 12.5 MG TAB PO SCH ×2 (05:52→17:27)
[2021-05-21 06:11] LABS: Basophils # (auto) 0.01 K/uL (0-0.2); Basophils % (auto) 0.1 %; Eosinophils # (auto) 0.09 K/uL (0-0.5); Eosinophils % (auto) 0.7 %; Hematocrit (blood only) 26.3 % (37-47); Hemoglobin 8.3 g/dL (12.0-16.0); Immature Granulocytes # (auto) 0.18 K/uL (0.00-0.02); Immature Granulocytes % (auto) 1.4 %; Lymphocytes # (auto) 1.66 K/uL (1.2-3.4); Mean Corpuscular Hemoglobin 30.3 pg (25-34); Mean Corpuscular Hgb Conc 31.6 g/dL (32-36); Monocytes # (auto) 1.37 K/uL (0.11-0.59); Monocytes % (auto) 10.8 %; Neutrophils # (auto) 9.42 K/uL (1.4-6.5); Nucleated RBC # (auto) 0.04 K/uL (0-0); Nucleated RBC % (auto) 0.3 %; Platelet Count 217 K/uL (130-400); RDW Coefficient of Variation 15.4 % (11.5-14.5); RDW Standard Deviation 53.5 fL (36.4-46.3); Red Blood Count 2.74 M/uL (4.2-5.4); White Blood Count 12.73 K/uL (4.8-10.8)
[2021-05-21 06:19] LABS: INR 1.1 (0.9-1.1); Prothrombin Time 10.9 Seconds (9.0-12.0)
[2021-05-21 06:50] LABS: BUN Creatinine Ratio 27.2 (10-20); Calcium 8.8 mg/dl (8.5-10.1); Creatinine Clr Calc Pharmacy 23.1 ml/min; Est GFR (African American) 38.2 ml/min; Est GFR (Non-African American) 32.9 ml/min; Potassium 3.6 mmol/L (3.5-5.1)
[2021-05-21 06:56] LABS: Ferritin 42.2 ng/ml (8-388)
[2021-05-21] MEDS: LEVALBUTEROL HCL 1.25 MG/3 ML NEB INH SCH ×4 (08:36→20:33)
[2021-05-21] MEDS: BUDESONIDE 0.5 MG/2 ML VIAL (PULMICORT) INH SCH ×2 (08:37→20:20)
[2021-05-21] MEDS: SPIRONOLACTONE 12.5 MG TAB PO SCH (10:01)
[2021-05-21] MEDS: FEXOFENADINE HCL 180 MG TAB PO SCH (10:01)
[2021-05-21] MEDS: ESCITALOPRAM OXALATE 10 MG TAB PO SCH (10:01)
[2021-05-21] MEDS: TRIAMCINOLONE ACET NASAL SPRAY 10.8ML BTL SCH ×2 (10:01→20:00)
[2021-05-21] MEDS: SUCRALFATE 1 GM/10 ML UDC PO SCH ×3 (10:01→19:59)
[2021-05-21] MEDS: CHOLECALCIFEROL 1,000 UNITS 25 MCG TAB PO SCH (10:01)
[2021-05-21] MEDS: AZELASTINE HCL 0.1% NASAL 200 SPRAYS/27,400 MCG BTL SCH ×2 (10:02→20:00)
[2021-05-21] MEDS: DOCUSATE SODIUM 100 MG CAP PO SCH ×2 (10:06→19:59)
[2021-05-21] MEDS: CALCITONIN SALMON NA 200 IU/AC 3.7 ML BTL SCH (10:06)
--- NOTE | 2021-05-21 16:03 | Hospitalist Progress Note ---
Date of Service May 21, 2021 Assessment & Plan (1) Upper GI bleed: Plan: Has been having diarrhea for about 1 week and noted to have black stool for the last few days Went to see her PCP yesterday and noted to have low hemoglobin of 8.2 and a white count elevated to 20.35 She admits to have black tarry stool and ongoing weakness and dizziness with ambulation Hemoglobin noted to be 7.8 in the emergency room and INR is elevated to 8.0 She received 5 mg of intravenous vitamin K and She was started with intravenous Protonix and will get units of blood transfusion We will check H&H every 6 hourly GI consult -appreciate input and recommendation Received 1 unit of PRBC and the hemoglobin is more than 9.2 No more diarrhea and dark black stool No plan to do EGD and the diet has been started Advised to discontinue Coumadin Hemoglobin dropped to 8.3 today Stool has been sent for Hemoccult We will continue current management and repeat CBC tomorrow if stable will discharge home Discussed with GI if hemoglobin drops significantly then will do EGD Iron level and iron binding capacity low-iron has been started (2) Generalized weakness: Plan: Likely secondary to ongoing GI bleed with low hemoglobin (3) Breath shortness: Plan: Could be secondary to low hemoglobin and is contributed by known history of chronic systolic heart failure No evidence of acute exacerbation of asthma No wheezing on examination (4) Leukocytosis: Plan: She has been on prednisone for asthma exacerbation and currently on 15 mg daily Leukocytosis likely secondary to prednisone use and is complicated by stress due to GI bleed Will not give any antibiotic Slightly better (5) Diastolic heart failure secondary to hypertension: Plan: Chest x-ray is not showing any fluid overload She takes 40 of Lasix daily She has bilateral leg edema without any fluid overload clinically She will get Lasix 40 mg intravenously in between transfusion today No signs and/or symptoms of fluid overload (6) Asthma, moderate persistent: Plan: No exacerbation at this time We will hold her prednisone for now She has been on high-dose prednisone for the last 8 months or so and has been getting 15 mg daily Plan to discharge him on 10 mg daily for about 2 weeks and then gradual tapering May need to continue 5 to 7.5 mg of prednisone daily given her chronic use of prednisone in the past We will advise 40 mg of prednisone for 5 days for any exacerbation of asthma as an outpatient (7) History of breast cancer: Plan: Continue tamoxifen (8) CKD (chronic kidney disease), stage III: Plan: History of chronic kidney disease stage III-IV Increasing BUN and creatinine likely contributed by upper GI bleed Will monitor kidney function (9) Hypothyroidism (acquired): Plan: Continue with replacement therapy (10) PAF (paroxysmal atrial fibrillation): Plan: Rate is controlled Has been on Coumadin as anticoagulation Remains in sinus rhythm She has been on Coumadin for a long time for an episode of atrial fibrillation lasted for very short period of time in the past Discussed with on-call kardex clerk and was advised to discontinue Coumadin We will get an appointment with outpatient kardex clerk for further evaluation DVT prophylaxis Supratherapeutic INR Received intravenous vitamin K We will monitor INR No pharmacologic anticoagulation for now CODE STATUS Full Discussed with the daughter in detail-likely be discharged tomorrow Admission and Anticipated Discharge Date Admission Date: May 19, 2021 Subjective 05/20/2021 The patient was seen and examined in the emergency room in the holding area in presence of the daughter She has been feeling much better and did not have any more bowel movement and or black tarry stool Denies any epigastric pain, no nausea no vomiting Received 1 unit of blood and the hemoglobin is more than 9 05/21/2021 The patient was seen and examined in emergency room in the holding area in presence of the daughter She has been feeling stable but her hemoglobin dropped to 8.3 today Her iron level is low and she was started with oral iron She denies any significant symptoms but bowel has not moved yet Review of Systems Review of Systems: All systems reviewed and are unremarkable except as noted below Respiratory: Shortness of breath on exertion Gastrointestinal: No abdominal pain, distention, no nausea or vomiting Physical Exam Physical Exam: Lying in bed comfortably Constitutional: well developed, well nourished and + obese; not ill appearing Eyes: PERRL, conjunctivae normal, anicteric sclerae ENMT: external ear and nose normal, oropharynx normal Neck: trachea midline, no thyromegaly Respiratory: no respiratory distress Auscultation: + diminished lung sounds and + wheezes (Minimal wheezing); no crackles Cardiovascular: Rate/Rhythm: regular rate and regular rhythm; not tachycardic Heart Sounds: normal S1 and normal S2; no murmur Extremities: + edema (Face edema bilaterally) Gastrointestinal (Abdomen): Inspection/Auscultation: normal bowel sounds; abdomen not distended Percussion/Palpation: abdomen soft; abdomen nontender Musculoskeletal: Arthritis in any joint Neurologic: Alert, awake and oriented x3. Generally weak but no focal sensory or motor deficit appreciated Lymphatic: no cervical or axillary lymphadenopathy Results & Data Results & Data ([facility]) Vital Signs (Past 12 Hours) Vital Signs Temp Pulse Resp BP Pulse Ox 05/21/21 15:46 37.6 C H 82 20 155/82 H 98 05/21/21 12:11 80 18 96 05/21/21 11:01 36.6 C 82 18 136/71 94 05/21/21 08:37 78 16 98 Laboratory Results Short CBC 05/21/21 Range/Units 05:37 WBC 12.73 H (4.8-10.8) K/uL Hgb 8.3 L (12.0-16.0) g/dL Hct 26.3 L (37-47) % Plt Count 217 (130-400) K/uL BMP 05/21/21 05:37 Sodium 138 Potassium 3.6 Chloride 103 Carbon Dioxide 31 BUN 38 H Creatinine 1.41 H Glucose 99 Calcium 8.8 Medications Administered Current Inpatient Medications Atorvastatin Calcium (Atorvastatin 40 Mg Tab) 40 mg PO DAILY@1800 [facility] Stop: 06/18/21 21:51 Last Admin: 05/20/21 17:58 Dose: 40 mg Documented by: Azelastine HCl (Azelastine Hcl 0.1% Nasal 200 Sprays/27,400 Mcg Btl) 1 sprays NA BID [facility] Stop: 06/18/21 21:51 Last Admin: 05/21/21 10:02 Dose: 1 sprays Documented by: Budesonide (Budesonide 0.5 Mg/2 Ml Vial (Pulmicort)) 0.5 mg INH BIDR [facility] Stop: 06/18/21 21:51 Last Admin: 05/21/21 08:37 Dose: 0.5 mg Documented by: Calcitonin [place] (Calcitonin [place] Na 200 Iu/Ac 3.7 Ml Btl) 1 sprays NA DAILY [facility] Stop: 06/19/21 08:59 Last Admin: 05/21/21 10:06 Dose: 1 sprays Documented by: Calcium Carbonate (Calcium Carbonate 1250mg Tab) 1,250 mg PO DAILY@1800 [facility] Stop: 06/18/21 21:51 Last Admin: 05/20/21 17:58 Dose: 1,250 mg Documented by: Carvedilol (Carvedilol 12.5 Mg Tab) 12.5 mg PO BID@0600,1800 [facility] Stop: 06/18/21 21:51 Last Admin: 05/21/21 05:52 Dose: 12.5 mg Documented by: Docusate Sodium (Docusate Sodium 100 Mg Cap) 100 mg PO BID [facility] Stop: 06/19/21 20:59 Last Admin: 05/21/21 10:06 Dose: 100 mg Documented by: Escitalopram Oxalate (Escitalopram Oxalate 10 Mg Tab) 5 mg PO DAILY [facility] Stop: 06/19/21 08:59 Last Admin: 05/21/21 10:01 Dose: 5 mg Documented by: Ferrous Sulfate (Ferrous Sulfate 325 Mg Tab) 325 mg PO BIDM [facility] Stop: 06/20/21 16:59 Fexofenadine HCl (Fexofenadine Hcl 180 Mg Tab) 180 mg PO DAILY [facility] Stop: 06/19/21 08:59 Last Admin: 05/21/21 10:01 Dose: 180 mg Documented by: Pantoprazole Sodium 40 mg/ (Dextrose) 100 mls @ 20 mls/hr IV Q5H [facility] Stop: 06/18/21 16:14 Last Admin: 05/21/21 14:04 Dose: 8 mg/hr, 20 mls/hr Documented by: Isosorbide Mononitrate (Isosorbide [place] Extended Rel 60 Mg Tabcr) 60 mg PO HS [facility] Stop: 06/18/21 21:51 Last Admin: 05/20/21 20:07 Dose: 60 mg Documented by: Levalbuterol HCl (Levalbuterol Tartrate 15 Gm Hfa.Aer.Ad) 1 puffs INH Q4H PRN PRN Reason: Wheezing Stop: 06/18/21 21:51 Levalbuterol HCl (Levalbuterol Hcl 1.25 Mg/3 Ml Neb) 1.25 mg INH TIDR [facility]; Protocol Stop: 06/18/21 21:51 Last Admin: 05/21/21 12:11 Dose: 1.25 mg Documented by: Levothyroxine Sodium (Levothyroxine Sodium 150 Mcg Tablet) 150 mcg PO DAILYBB [facility] Stop: 06/19/21 06:29 Last Admin: 05/21/21 05:52 Dose: 150 mcg Documented by: Montelukast Sodium (Montelukast Sodium 10 Mg Tablet) 10 mg PO DAILY@1800 [facility] Stop: 06/18/21 21:51 Last Admin: 05/20/21 17:57 Dose: 10 mg Documented by: Nitroglycerin (Nitroglycerin Sl 0.4 Mg/Tab Tab) 0.4 mg SL DAILY PRN PRN Reason: Chest Pain Stop: 06/18/21 21:51 Sodium Chloride (Sodium Chloride 0.65% Na Soln 45 Ml ([place])) 2 sprays NA QID PRN PRN Reason: Nasal Congestion Stop: 06/18/21 21:51 Spironolactone (Spironolactone 12.5 Mg Tab) 12.5 mg PO DAILY@0900 [facility] Stop: 06/19/21 08:59 Last Admin: 05/21/21 10:01 Dose: 12.5 mg Documented by: Sucralfate (Sucralfate 1 Gm/10 Ml Udc) 1 gm PO TID [facility] Stop: 06/19/21 20:59 Last Admin: 05/21/21 14:05 Dose: 1 gm Documented by: Triamcinolone Acetonide (Triamcinolone Acet Nasal [place] 10.8ml Btl) 1 sprays NA BID [facility] Stop: 06/18/21 21:51 Last Admin: 05/21/21 10:01 Dose: 1 sprays Documented by: Vitamin D (Cholecalciferol 1,000 Units 25 Mcg Tab) 2,000 units PO DAILY [facility] Stop: 06/19/21 08:59 Last Admin: 05/21/21 10:01 Dose: 2,000 units Documented by: (1) CKD (chronic kidney disease), stage III Chronic kidney disease stage 3 subtype: stage 3b (GFR 30-44) Qualified Code(s): N18.32 - Chronic kidney disease, stage 3b
[2021-05-21] MEDS: FERROUS SULFATE 325 MG TAB PO SCH (16:20)
[2021-05-21] MEDS: ATORVASTATIN 40 MG TAB PO SCH (17:26)
[2021-05-21] MEDS: CALCIUM CARBONATE 1250MG TAB PO SCH (17:27)
[2021-05-21] MEDS: MONTELUKAST SODIUM 10 MG TABLET PO SCH (17:27)
[2021-05-21] MEDS ORDERED: predniSONE 20 MG TAB PO STA (19:37)
[2021-05-21] MEDS: ISOSORBIDE MONO EXTENDED REL 60 MG TABCR PO SCH (19:59)
[2021-05-21] MEDS ORDERED: predniSONE 10 MG TABLET PO ONE (20:00)
[2021-05-21 20:45] LABS: Hematocrit (blood only) 28.3 % (37-47); Hemoglobin 8.9 g/dL (12.0-16.0)
[2021-05-21] MEDS ORDERED: LEVALBUTEROL HCL 1.25 MG/3 ML NEB NEB PRN (20:54)
[2021-05-22] MEDS: LEVALBUTEROL HCL 1.25 MG/3 ML NEB INH SCH ×3 (00:53→14:24)
[2021-05-22] MEDS: PANTOprazole 40 MG in DEXTROSE 5% 100 ML IV SCH ×3 (01:08→11:09)
[2021-05-22] MEDS: carvediloL 12.5 MG TAB PO SCH (05:45)
[2021-05-22] MEDS: LEVOTHYROXINE SODIUM 150 MCG TABLET PO SCH (05:45)
[2021-05-22 07:33] LABS: Basophils # (auto) 0.01 K/uL (0-0.2); Basophils % (auto) 0.1 %; Hematocrit (blood only) 26.2 % (37-47); Hemoglobin 8.1 g/dL (12.0-16.0); Immature Granulocytes # (auto) 0.17 K/uL (0.00-0.02); Immature Granulocytes % (auto) 1.4 %; Lymphocytes # (auto) 0.87 K/uL (1.2-3.4); Lymphocytes % (auto) 7.2 %; Mean Corpuscular Hemoglobin 29.7 pg (25-34); Mean Corpuscular Hgb Conc 30.9 g/dL (32-36); Mean Platelet Volume 9.8 fL (7.4-10.4); Monocytes # (auto) 0.76 K/uL (0.11-0.59); Monocytes % (auto) 6.3 %; Neutrophils # (auto) 10.22 K/uL (1.4-6.5); Platelet Count 202 K/uL (130-400); RDW Coefficient of Variation 15.4 % (11.5-14.5); RDW Standard Deviation 53.8 fL (36.4-46.3); Red Blood Count 2.73 M/uL (4.2-5.4); White Blood Count 12.03 K/uL (4.8-10.8)
[2021-05-22 07:47] LABS: Prothrombin Time 10.6 Seconds (9.0-12.0)
[2021-05-22 07:48] LABS: Calcium 8.2 mg/dl (8.5-10.1); Creatinine Clr Calc Pharmacy 27.1 ml/min; Est GFR (African American) 46.9 ml/min; Est GFR (Non-African American) 40.4 ml/min; Potassium 3.8 mmol/L (3.5-5.1)
[2021-05-22] MEDS: ESCITALOPRAM OXALATE 10 MG TAB PO SCH (07:58)
[2021-05-22] MEDS: FERROUS SULFATE 325 MG TAB PO SCH (07:58)
[2021-05-22] MEDS: CHOLECALCIFEROL 1,000 UNITS 25 MCG TAB PO SCH (07:58)
[2021-05-22] MEDS: SPIRONOLACTONE 12.5 MG TAB PO SCH (07:59)
[2021-05-22] MEDS: FEXOFENADINE HCL 180 MG TAB PO SCH (07:59)
[2021-05-22] MEDS: SUCRALFATE 1 GM/10 ML UDC PO SCH (07:59)
[2021-05-22] MEDS: CALCITONIN SALMON NA 200 IU/AC 3.7 ML BTL SCH (08:00)
[2021-05-22] MEDS: AZELASTINE HCL 0.1% NASAL 200 SPRAYS/27,400 MCG BTL SCH (08:00)
[2021-05-22] MEDS: TRIAMCINOLONE ACET NASAL SPRAY 10.8ML BTL SCH (08:01)
[2021-05-22] MEDS: DOCUSATE SODIUM 100 MG CAP PO SCH (08:01)
[2021-05-22] MEDS ORDERED: FUROSEMIDE 40 MG/4 ML VIAL IV ONE (08:17)
[2021-05-22] MEDS: BUDESONIDE 0.5 MG/2 ML VIAL (PULMICORT) INH SCH (08:30)
[2021-05-22] MEDS ORDERED: predniSONE 10 MG TABLET PO SCH (09:00)
[2021-05-22] MEDS ORDERED: DOCUSATE SODIUM SYRUP 100 MG/10 ML UDC PO STA (09:29)
[2021-05-22 11:53] LABS: Adenovirus F 40/41 PCR Not Detected (NotDetected); Astrovirus PCR Not Detected (NotDetected); Campylobacter PCR Not Detected (NotDetected); Clostridium diff Toxin A/B PCR Not Detected (NotDetected); Cryptosporidium PCR Not Detected (NotDetected); Cyclospora cayetanensis PCR Not Detected (NotDetected); Entamoeba histolytica PCR Not Detected (NotDetected); Enteroaggregative E.coli(EAEC) Not Detected (NotDetected); Enteropathogenic E.coli (EPEC) Not Detected (NotDetected); Enterotoxigenic E.coli (ETEC) Not Detected (NotDetected); Giardia lamblia PCR Not Detected (NotDetected); Norovirus GI/GII PCR Not Detected (NotDetected); Plesiomonas shigelloides PCR Not Detected (NotDetected); Rotavirus A PCR Not Detected (NotDetected); Salmonella PCR Not Detected (NotDetected); Sapovirus PCR Not Detected (NotDetected); Shiga-like Toxin E.coli (STEC) Not Detected (NotDetected); Shigella/Enteroinvasive E.coli Not Detected (NotDetected); Vibrio cholerae PCR Not Detected (NotDetected); Vibrio species PCR Not Detected (NotDetected); Yersinia enterocolitica PCR Not Detected (NotDetected)
--- NOTE | 2021-05-22 12:48 | Hospitalist Progress Note ---
Date of Service May 22, 2021 Assessment & Plan (1) Upper GI bleed: Plan: Has been having diarrhea for about 1 week and noted to have black stool for the last few days Went to see her PCP yesterday and noted to have low hemoglobin of 8.2 and a white count elevated to 20.35 She admits to have black tarry stool and ongoing weakness and dizziness with ambulation Hemoglobin noted to be 7.8 in the emergency room and INR is elevated to 8.0 She received 5 mg of intravenous vitamin K and She was started with intravenous Protonix and will get units of blood transfusion We will check H&H every 6 hourly GI consult -appreciate input and recommendation Received 1 unit of PRBC and the hemoglobin is more than 9.2 No more diarrhea and dark black stool No plan to do EGD and the diet has been started Advised to discontinue Coumadin Hemoglobin dropped to 8.3 today Stool has been sent for Hemoccult We will continue current management and repeat CBC tomorrow if stable will discharge home Discussed with GI if hemoglobin drops significantly then will do EGD Iron level and iron binding capacity low-iron has been started Stool came back positive for blood but did not have any other infection Hemoglobin remains at 8.1 and the BUN is not increased He will get a dose of Lasix today and check CBC at 2:00. If the hemoglobin remains stable she will be sent home this afternoon (2) Generalized weakness: Plan: Likely secondary to ongoing GI bleed with low hemoglobin Denies any more weakness (3) Breath shortness: Plan: Could be secondary to low hemoglobin and is contributed by known history of chronic systolic heart failure No evidence of acute exacerbation of asthma No wheezing on examination (4) Leukocytosis: Plan: She has been on prednisone for asthma exacerbation and currently on 15 mg daily Leukocytosis likely secondary to prednisone use and is complicated by stress due to GI bleed Will not give any antibiotic Slightly better (5) Diastolic heart failure secondary to hypertension: Plan: Chest x-ray is not showing any fluid overload She takes 40 of Lasix daily She has bilateral leg edema without any fluid overload clinically She will get Lasix 40 mg intravenously in between transfusion today No signs and/or symptoms of fluid overload Her Lasix monitor was on hold due to increasing BUN/creatinine Today she will get 40 of Lasix IV as she may have minimal fluid overload (6) Asthma, moderate persistent: Plan: No exacerbation at this time We will hold her prednisone for now She has been on high-dose prednisone for the last 8 months or so and has been getting 15 mg daily Plan to discharge him on 10 mg daily for about 2 weeks and then gradual tapering May need to continue 5 to 7.5 mg of prednisone daily given her chronic use of prednisone in the past We will advise 40 mg of prednisone for 5 days for any exacerbation of asthma as an outpatient We will advise 10 mg prednisone to continue for at least 2 weeks and gradually taper after that (7) History of breast cancer: Plan: Continue tamoxifen (8) CKD (chronic kidney disease), stage III: Plan: History of chronic kidney disease stage III-IV Increasing BUN and creatinine likely contributed by upper GI bleed Will monitor kidney function (9) Hypothyroidism (acquired): Plan: Continue with replacement therapy (10) PAF (paroxysmal atrial fibrillation): Plan: Rate is controlled Has been on Coumadin as anticoagulation Remains in sinus rhythm She has been on Coumadin for a long time for an episode of atrial fibrillation lasted for very short period of time in the past Discussed with on-call optical sales associate and was advised to discontinue Coumadin We will get an appointment with outpatient optical sales associate for further evaluation DVT prophylaxis Supratherapeutic INR Received intravenous vitamin K We will monitor INR No pharmacologic anticoagulation for now CODE STATUS Full Discussed with the daughter in detail-likely be discharged tomorrow Admission and Anticipated Discharge Date Admission Date: May 19, 2021 Subjective 05/20/2021 The patient was seen and examined in the emergency room in the holding area in presence of the daughter She has been feeling much better and did not have any more bowel movement and or black tarry stool Denies any epigastric pain, no nausea no vomiting Received 1 unit of blood and the hemoglobin is more than 9 05/21/2021 The patient was seen and examined in emergency room in the holding area in presence of the daughter She has been feeling stable but her hemoglobin dropped to 8.3 today Her iron level is low and she was started with oral iron She denies any significant symptoms but bowel has not moved yet 05/22/2021 The patient was seen and examined in telemetry unit She has been feeling much better but her bowel is not moved Denies any shortness of breath, abdominal pain, nausea and or vomiting Review of Systems Review of Systems: All systems reviewed and are unremarkable except as noted below Respiratory: Shortness of breath on exertion Gastrointestinal: No abdominal pain, distention, no nausea or vomiting Physical Exam Physical Exam: Sitting on a chair without any acute distress Constitutional: well developed, well nourished and + obese; not ill appearing Eyes: PERRL, conjunctivae normal, anicteric sclerae ENMT: external ear and nose normal, oropharynx normal Neck: trachea midline, no thyromegaly Respiratory: no respiratory distress Auscultation: + diminished lung sounds and + wheezes (Minimal wheezing); no crackles Cardiovascular: Rate/Rhythm: regular rate and regular rhythm; not tachycardic Heart Sounds: normal S1 and normal S2; no murmur Extremities: + edema (Face edema bilaterally) Gastrointestinal (Abdomen): Inspection/Auscultation: normal bowel sounds; abdomen not distended Percussion/Palpation: abdomen soft; abdomen nontender Musculoskeletal: No acute arthritis in any joint Neurologic: PERRL, EOMI, accommodation nl, no face palsy, no dysarthria Lymphatic: no cervical or axillary lymphadenopathy Results & Data Results & Data ([facility]) Vital Signs (Past 12 Hours) Vital Signs Temp Pulse Pulse Resp BP BP Pulse Ox 05/22/21 11:00 37.0 C 88 16 121/66 97 05/22/21 08:31 81 16 98 05/22/21 08:00 76 05/22/21 07:00 36.5 C 84 16 142/69 H 96 05/22/21 03:21 36.7 C 79 24 137/73 97 Laboratory Results Short CBC 05/21/21 05/22/21 Range/Units 20:23 07:01 WBC 12.03 H (4.8-10.8) K/uL Hgb 8.9 L 8.1 L (12.0-16.0) g/dL Hct 28.3 L 26.2 L (37-47) % Plt Count 202 (130-400) K/uL BMP 05/22/21 07:01 Sodium 137 Potassium 3.8 Chloride 103 Carbon Dioxide 29 BUN 30 H Creatinine 1.19 Glucose 165 H Calcium 8.2 L Medications Administered Current Inpatient Medications Atorvastatin Calcium (Atorvastatin 40 Mg Tab) 40 mg PO DAILY@1800 CHETAN Stop: 06/18/21 21:51 Last Admin: 05/21/21 17:26 Dose: 40 mg Documented by: Azelastine HCl (Azelastine Hcl 0.1% Nasal 200 Sprays/27,400 Mcg Btl) 1 sprays NA BID CHETAN Stop: 06/18/21 21:51 Last Admin: 05/22/21 08:00 Dose: 1 sprays Documented by: Budesonide (Budesonide 0.5 Mg/2 Ml Vial (Pulmicort)) 0.5 mg INH BIDR CHETAN Stop: 06/18/21 21:51 Last Admin: 05/22/21 08:30 Dose: 0.5 mg Documented by: Calcitonin [place] (Calcitonin [place] Na 200 Iu/Ac 3.7 Ml Btl) 1 sprays NA DAILY CHETAN Stop: 06/19/21 08:59 Last Admin: 05/22/21 08:00 Dose: 1 sprays Documented by: Calcium Carbonate (Calcium Carbonate 1250mg Tab) 1,250 mg PO DAILY@1800 REPLACED BY [facility] Stop: 06/18/21 21:51 Last Admin: 05/21/21 17:27 Dose: 1,250 mg Documented by: Carvedilol (Carvedilol 12.5 Mg Tab) 12.5 mg PO BID@0600,1800 REPLACED BY [facility] Stop: 06/18/21 21:51 Last Admin: 05/22/21 05:45 Dose: 12.5 mg Documented by: Docusate Sodium (Docusate Sodium 100 Mg Cap) 100 mg PO BID REPLACED BY [facility] Stop: 06/19/21 20:59 Last Admin: 05/22/21 08:01 Dose: Not Given Documented by: Escitalopram Oxalate (Escitalopram Oxalate 10 Mg Tab) 5 mg PO DAILY CHETAN Stop: 06/19/21 08:59 Last Admin: 05/22/21 07:58 Dose: 5 mg Documented by: Ferrous Sulfate (Ferrous Sulfate 325 Mg Tab) 325 mg PO BIDM CHETAN Stop: 06/20/21 16:59 Last Admin: 05/22/21 07:58 Dose: 325 mg Documented by: Fexofenadine HCl (Fexofenadine Hcl 180 Mg Tab) 180 mg PO DAILY REPLACED BY [facility] Stop: 06/19/21 08:59 Last Admin: 05/22/21 07:59 Dose: 180 mg Documented by: Pantoprazole Sodium 40 mg/ (Dextrose) 100 mls @ 20 mls/hr IV Q5H CHETAN Stop: 06/18/21 16:14 Last Admin: 05/22/21 11:09 Dose: 8 mg/hr, 20 mls/hr Documented by: Isosorbide Mononitrate (Isosorbide [place] Extended Rel 60 Mg Tabcr) 60 mg PO HS REPLACED BY [facility] Stop: 06/18/21 21:51 Last Admin: 05/21/21 19:59 Dose: 60 mg Documented by: Levalbuterol HCl (Levalbuterol Tartrate 15 Gm Hfa.Aer.Ad) 1 puffs INH Q4H PRN PRN Reason: Wheezing Stop: 06/18/21 21:51 Levalbuterol HCl (Levalbuterol Hcl 1.25 Mg/3 Ml Neb) 1.25 mg INH Q6H CHETAN; Protocol Stop: 06/20/21 19:44 Last Admin: 05/22/21 08:30 Dose: 1.25 mg Documented by: Levalbuterol HCl (Levalbuterol Hcl 1.25 Mg/3 Ml Neb) 1.25 mg NEB Q2H PRN; Protocol PRN Reason: Shortness Of Breath Or Wheezing Stop: 06/20/21 20:59 Levothyroxine Sodium (Levothyroxine Sodium 150 Mcg Tablet) [facility] Stop: 06/19/21 06:29 Last Admin: 05/22/21 05:45 Dose: 150 mcg Documented by: Montelukast Sodium (Montelukast Sodium 10 Mg Tablet) 10 mg PO DAILY@1800 REPLACED BY [facility] Stop: 06/18/21 21:51 Last Admin: 05/21/21 17:27 Dose: 10 mg Documented by: Nitroglycerin (Nitroglycerin Sl 0.4 Mg/Tab Tab) 0.4 mg SL DAILY PRN PRN Reason: Chest Pain Stop: 06/18/21 21:51 Prednisone (Prednisone 10 Mg Tablet) 10 mg PO DAILY REPLACED BY [facility] Stop: 06/21/21 08:59 Last Admin: 05/22/21 07:59 Dose: 10 mg Documented by: Sodium Chloride (Sodium Chloride 0.65% Na Soln 45 Ml ([place])) 2 sprays NA QID PRN PRN Reason: Nasal Congestion Stop: 06/18/21 21:51 Spironolactone (Spironolactone 12.5 Mg Tab) 12.5 mg PO DAILY@0900 REPLACED BY [facility] Stop: 06/19/21 08:59 Last Admin: 05/22/21 07:59 Dose: 12.5 mg Documented by: Sucralfate (Sucralfate 1 Gm/10 Ml Udc) 1 gm PO TID CHETAN Stop: 06/19/21 20:59 Last Admin: 05/22/21 07:59 Dose: 1 gm Documented by: Triamcinolone Acetonide (Triamcinolone Acet Nasal [place] 10.8ml Btl) 1 sprays NA BID CHETAN Stop: 06/18/21 21:51 Last Admin: 05/22/21 08:01 Dose: 1 sprays Documented by: Vitamin D (Cholecalciferol 1,000 Units 25 Mcg Tab) 2,000 units PO DAILY CHETAN Stop: 06/19/21 08:59 Last Admin: 05/22/21 07:58 Dose: 2,000 units Documented by: (1) CKD (chronic kidney disease), stage III Chronic kidney disease stage 3 subtype: stage 3b (GFR 30-44) Qualified Code(s): N18.32 - Chronic kidney disease, stage 3b
[2021-05-22 14:20] LABS: Hematocrit (blood only) 31.5 % (37-47); Hemoglobin 9.9 g/dL (12.0-16.0)
--- NOTE | 2021-05-23 09:30 | Discharge Summary ---
Date of Service May 23, 2021 Admission HPI Per Admitting Provider She is an 89-year-old female with significant past medical history including moderately persistent asthma, diastolic heart failure, hypertensive heart disease, secondary hyperparathyroidism, history of thyroid cancer, chronic kidney disease stage IV, paroxysmal atrial fibrillation on anticoagulation, hypothyroidism and other medical condition as mentioned below apparently has been complaining of diarrhea off and on for the last 1 week. She has associated weakness and dizziness and noted to have black stool for the last day or 2. She went to see her primary care provider and following an abnormal blood test es pecially low hemoglobin and increased white count she was sent to emergency room for further evaluation. Apparently she has been on high-dose tapering steroid and doxycycline on and off for a while for asthma exacerbation and bronchitis. She has been taking 15 mg a day recently, she denies to taking any NSAID is alert and her usual aspirin. She has generalized bruising and also leg edema. Recently she has been having more weakness and shortness of breath on minimal exertion. She noted to have black stool for the last 2 to 3 days. Denies any chest pain and/or palpitation. Does have abdominal discomfort without pain and without any nausea and or vomiting. Diarrhea on and off as mentioned earlier for the last 1 week and recent black tarry stool. Admission Exam Per Admitting Provider Physical Exam: Lying in bed comfortably but very anxious and pale looking Constitutional: well developed, well nourished, + ill appearing and + obese Eyes: PERRL, conjunctivae normal, anicteric sclerae ENMT: external ear and nose normal, oropharynx normal Neck: trachea midline, no thyromegaly Respiratory: no respiratory distress Auscultation: + diminished lung sounds, + crackles (At the bases) and + wheezes (Minimal wheezing anteriorly) Cardiovascular: Rate/Rhythm: regular rate and regular rhythm; not tachycardic Heart Sounds: normal S1 and normal S2; no murmur Extremities: + edema (1+ edema bilaterally) Gastrointestinal (Abdomen): Inspection/Auscultation: normal bowel sounds; abdomen not distended Percussion/Palpation: + abdomen tender (Minimally tender left lower quadrant) and abdomen soft Musculoskeletal: No acute arthritis in any joint Neurologic: Alert, awake and oriented x3. Generally weak but no focal weakness Lymphatic: no cervical or axillary lymphadenopathy Principal Diagnosis Upper GI bleed-resolved, complicated by use of aspirin, prednisone and Coumadin, diastolic heart failure, moderate persistent asthma, paroxysmal atrial fibrillation, history of breast cancer Discharge Exam Sitting on a chair without any acute distress Constitutional well developed, well nourished and + obese; not ill appearing Eyes PERRL, conjunctivae normal, anicteric sclerae ENMT external ear and nose normal, oropharynx normal Neck trachea midline, no thyromegaly Respiratory no respiratory distress Auscultation: + diminished lung sounds and + wheezes (Minimal wheezing); no crackles Cardiovascular Rate/Rhythm: regular rate and regular rhythm; not tachycardic Heart Sounds: normal S1 and normal S2; no murmur Extremities: + edema (Face edema bilaterally) Gastrointestinal (Abdomen) Inspection/Auscultation: normal bowel sounds; abdomen not distended Percussion/Palpation: abdomen soft; abdomen nontender Neurologic PERRL, EOMI, accommodation nl, no face palsy, no dysarthria Lymphatic no cervical or axillary lymphadenopathy Discharge Data 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, after school program teacher recommended not to take sulfamethoxazole Allergy Mild RASH Verified 05/19/21 18:23 trimethoprim Allergy Mild RASH Verified 05/19/21 18:23 amlodipine Allergy Unknown Unverified 05/19/21 18:23 amoxicillin Allergy Rash Unverified 05/19/21 18:23 azithromycin Allergy Unknown Unverified 05/19/21 18:23 cefuroxime [From Ceftin] Allergy Diarrhea Unverified 05/19/21 18:23 ipratropium Allergy Unknown Unverified 05/19/21 18:23 Sulfa (Sulfonamide Allergy Hives Unverified 05/19/21 18:23 Antibiotics) Consultations 05/19/21 16:19 ED Decision to Admit Stat 05/19/21 18:50 Consult Gastroenterology Routine Hospital Course (1) Upper GI bleed: Has been having diarrhea for about 1 week and noted to have black stool for the last few days Went to see her PCP yesterday and noted to have low hemoglobin of 8.2 and a white count elevated to 20.35 She admits to have black tarry stool and ongoing weakness and dizziness with ambulation Hemoglobin noted to be 7.8 in the emergency room and INR is elevated to 8.0 She received 5 mg of intravenous vitamin K and She was started with intravenous Protonix and will get units of blood transfusion We will check H&H every 6 hourly GI consult -appreciate input and recommendation Received 1 unit of PRBC and the hemoglobin is more than 9.2 No more diarrhea and dark black stool No plan to do EGD and the diet has been started Advised to discontinue Coumadin Hemoglobin dropped to 8.3 today Stool has been sent for Hemoccult We will continue current management and repeat CBC tomorrow if stable will discharge home Discussed with GI if hemoglobin drops significantly then will do EGD Iron level and iron binding capacity low-iron has been started Stool came back positive for blood but did not have any other infection Hemoglobin remains at 8.1 and the BUN is not increased He will get a dose of Lasix today and check CBC at 2:00. If the hemoglobin remains stable she will be sent home this afternoon (2) Generalized weakness: Likely secondary to ongoing GI bleed with low hemoglobin Denies any more weakness (3) Breath shortness: Could be secondary to low hemoglobin and is contributed by known history of chronic systolic heart failure No evidence of acute exacerbation of asthma No wheezing on examination (4) Leukocytosis: She has been on prednisone for asthma exacerbation and currently on 15 mg daily Leukocytosis likely secondary to prednisone use and is complicated by stress due to GI bleed Will not give any antibiotic Slightly better (5) Diastolic heart failure secondary to hypertension: Chest x-ray is not showing any fluid overload She takes 40 of Lasix daily She has bilateral leg edema without any fluid overload clinically She will get Lasix 40 mg intravenously in between transfusion today No signs and/or symptoms of fluid overload Her Lasix monitor was on hold due to increasing BUN/creatinine Today she will get 40 of Lasix IV as she may have minimal fluid overload (6) Asthma, moderate persistent: No exacerbation at this time We will hold her prednisone for now She has been on high-dose prednisone for the last 8 months or so and has been getting 15 mg daily Plan to discharge him on 10 mg daily for about 2 weeks and then gradual tapering May need to continue 5 to 7.5 mg of prednisone daily given her chronic use of prednisone in the past We will advise 40 mg of prednisone for 5 days for any exacerbation of asthma as an outpatient We will advise 10 mg prednisone to continue for at least 2 weeks and gradually taper after that (7) History of breast cancer: Continue tamoxifen (8) CKD (chronic kidney disease), stage III: History of chronic kidney disease stage III-IV Increasing BUN and creatinine likely contributed by upper GI bleed Will monitor kidney function (9) Hypothyroidism (acquired): Continue with replacement therapy (10) PAF (paroxysmal atrial fibrillation): Rate is controlled Has been on Coumadin as anticoagulation Remains in sinus rhythm She has been on Coumadin for a long time for an episode of atrial fibrillation lasted for very short period of time in the past Discussed with on-call after school program teacher and was advised to discontinue Coumadin We will get an appointment with outpatient after school program teacher for further evaluation DVT prophylaxis Supratherapeutic INR Received intravenous vitamin K We will monitor INR No pharmacologic anticoagulation for now CODE STATUS Full Discussed with the daughter in detail-likely be discharged tomorrow Total Time Total Time Spent Total Time Spent (In Minutes): 40 minutes Discharge Plan Discharge Items Patient Disposition: Home - Self-Care Reason For Visit: UGI BLEED, HIGH INR Discharge Diagnosis: Upper GI bleed-resolved, complicated by use of aspirin, prednisone and Coumadin, diastolic heart failure, moderate persistent asthma, paroxysmal atrial fibrillation, history of breast cancer Condition on Discharge: Fair Activity: Resume your previous activity Non-emergency contact: Primary Care Provider Call non-emergency contact if: you have any medication questions and your symptoms worsen Follow-up/Referrals: Dionicio Morrison [Physician Shop Foreman] - (Date & Time 06/02/2021 3:30 PM Provider Dionicio Morrison PA-C Department Cardiology, [facility] ) Urszula Calvert MD [Primary Care Provider] - (Date & Time 05/25/2021 11:00 AM Provider Urszula Calvert MD Department General Internal Medicine [facility] ) Diet: Heart Healthy Addtl Attending Provider Instructions: Please take precautions to avoid falls Do not take any NSAID's Your aspirin and Coumadin are on hold until you have been evaluated by the after school program teacher Your prednisone dose is decreased to 10 mg daily and follow the recommendation from your PCP to taper it down further Please keep taking iron pill as recommended Keep appointments with your healthcare providers You will be called on Monday with an appointment to see [facility] sales enablement lead within 2 to 3 weeks Pending Studies at Discharge: No Stand-Alone Forms: My [facility], Smoking Cessation Medications and DC Order Prescriptions: New ferrous sulfate 325 mg (65 mg iron) Tablet,Delayed Release (Dr/Ec) 325 mg PO BIDM 30 Days Qty: 60 RF: 0 Continued atorvastatin 40 mg Tablet 40 mg PO DAILY@1800 RF: 0 carvedilol [Coreg] 25 mg Tablet 12.5 mg PO .BID@6AM &6PM RF: 0 allopurinol 100 mg Tablet 200 mg PO .DAILY@9AM RF: 0 spironolactone 25 mg Tablet 12.5 mg PO DAILY@0900 RF: 0 budesonide 0.5 mg/2 mL Suspension For Nebulization 0.5 mg INHALATION BID RF: 0 levalbuterol HCl [Xopenex] 1.25 mg/3 mL Solution For Nebulization 1.25 mg INHALATION .Q4-5HR RF: 0 tamoxifen 20 mg Tablet 20 mg PO .DAILY@0900 RF: 0 iron-vit B dvvs-X-jdn-liver ex Tablet 1 tab PO 4XWK RF: 0 levothyroxine 150 mcg Capsule 150 mcg PO 4XWK RF: 0 losartan 50 mg Tablet 50 mg PO HS@2100 RF: 0 pantoprazole [Protonix] 40 mg Tablet,Delayed Release (Dr/Ec) 40 mg PO BID RF: 0 nitroglycerin [Nitrostat] 0.4 mg Tablet, Sublingual 0.4 mg buccal .UD PRN (Reason: Chest Pain) RF: 0 montelukast 10 mg Tablet 10 mg PO DAILY@1800 RF: 0 cholecalciferol (vitamin D3) [Vitamin D3] 1,000 unit Capsule 2,000 unit PO 3XWK RF: 0 escitalopram oxalate [Lexapro] 10 mg Tablet 5 mg PO .DAILY@9AM RF: 0 fexofenadine 180 mg Tablet 180 mg PO .DAILY@9AM RF: 0 calcium carbonate 600 mg calcium (1,500 mg) Tablet 600 mg PO DAILY@1800 RF: 0 triamcinolone acetonide [Nasacort] 55 mcg Aerosol,[place] 1 spray INTRANASAL BID RF: 0 azelastine 137 mcg (0.1 %) Aerosol,[place] 1 spray INTRANASAL .BID @ 8AM & 7PM RF: 0 sodium chloride [Saline Nasal] 0.65 % Aerosol,[place] 2 spray INTRANASAL QID PRN (Reason: Nasal Congestion) RF: 0 nystatin 100,000 unit/mL suspension 5 ml PO BID RF: 0 isosorbide mononitrate 60 mg tablet extended release 24 hr 60 mg PO .DAILY@9PM RF: 0 levalbuterol tartrate 45 mcg/actuation HFA aerosol inhaler 1 puff INHALATION Q4H PRN (Reason: Wheezing) RF: 0 furosemide 40 mg tablet 40 mg PO .DAILY@9AM RF: 0 magnesium oxide 400 mg (241.3 mg magnesium) tablet 400 mg PO .DAILY@9AM RF: 0 potassium chloride 10 mEq tablet extended release 10 meq PO .DAILY@9AM RF: 0 prednisone 10 mg Tablet 10 mg PO DAILY RF: 0 sucralfate 100 mg/mL suspension 10 ml PO .BID@1100 & 1600 RF: 0 acetaminophen 500 mg Tablet 500 mg PO TID RF: 0 levothyroxine 150 mcg Tablet 225 mcg PO .3XW RF: 0 Discontinued aspirin [Aspirin Low Dose] 81 mg Tablet,Delayed Release (Dr/Ec) 81 mg PO .DAILY@9AM RF: 0 prednisone 5 mg tablet 0 mg PO .DAILY/UD RF: 0 Discharge Orders: Discharge Order (Routine); Ordered 05/22/21 Ordered By: Magi Pruett Admission Data Admit Date/Time: 05/19/21 20:41 Attending Provider: Magi Pruett Admit Provider: Magi Pruett Primary Care Provider: Urszula Calvert Other Providers: Magi Pruett ; Tray Turner ; Rhonda Mcclain ; Amy Farris ; Caroline Reynoso ; Prince Zhao ; Yocasta Pavon ; Tammie Daniels ; Alex Robledo ; Maria D Thorpe ; Amparo Cruz ; Dottie Rodriguez ; Karrie Nrei ; Karly Lerma Other Interventions: Discharge Summary Assessment (RN) Last Done: 05/22/21 15:14
== END 2021-05-22 16:05 | disposition home or self-care (01) | DRG 813 ==
LOC: ED 11:55 → EDINP 16:42 → 2S 05-21 16:37

== ENCOUNTER 2021-09-24 10:06 | Inpatient (IN) ==
[2021-09-24] MEDS ORDERED: ONDANSETRON INJ 2 MG/ML 2 ML VIAL IV STA (10:47)
[2021-09-24] MEDS ORDERED: SODIUM CHLORIDE 0.9% 1000ML 500 ML IV ONE (10:47)
[2021-09-24] MEDS ORDERED: ACETAMINOPHEN 1,000 MG/100 ML VIAL IV STA (10:50)
--- NOTE | 2021-09-24 10:50 | Emergency Department Note ---
Impression & Plan Epigastric abdominal pain, Bilateral pulmonary embolism Admission ED Provider Note HPI: The patient is an 89-year-old female with history of coronary artery disease, paroxysmal atrial fibrillation, chronic kidney disease, GERD, presents the emergency department today with multiple issues over the past several days. Patient states that she has had transient sensation of upper abdominal pain over the past 2 to 3 days. She has also had a sensation of palpitations according to the patient's daughter at the bedside. Patient denies any chest pain, denies any shortness of breath. On arrival to the ED the patient is hemodynamically stable, she is in no acute distress on my initial assessment, she is saturating well on room air. 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: - An order was placed for continuous cardiac monitoring - Patient was noted to be in sinus rhythm with rate of 75 EKG: Rate: 72 Rhythm: Sinus rhythm with first-degree AV block Intervals: KS interval prolonged at 244 ms, otherwise within normal limits ST changes: No ST elevation Time: 1025 Medical Decision Making: Patient presented to the emergency department the chief complaint of some upper abdominal pain, she is also had transient episodes of palpitations, on arrival here to the ED she is hemodynamically stable, she is in no acute distress on my initial evaluation but does complain of some pain over the epigastric and upper abdomen. Shortly after arrival IV was established, lab work obtained, patient was placed on bobbin loose end finder. Lab work shows evidence of a normal troponin x1, EKG shows sinus rhythm without any acute ischemic changes. Creatinine slightly elevated beyond baseline of 2.01, CT imaging of the abdomen pelvis was ordered and patient was hydrated, CT imaging of the abdomen pelvis does not show any acute surgical abnormality. Patient was given GI cocktail over suspicion for gastritis. I discussed the above findings with the patient's daughter on the phone, she did express concern that the patient was recently taken off Coumadin in May and given her sensation of palpitations we did discuss obtaining CT angiography of the chest to rule out pulmonary embolism as a source of her palpitations. CT imaging with angiography of the chest was then obtained and shows evidence of nonocclusive subsegmental pulmonary emboli bilaterally. No evidence of right heart strain. 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 Benjamin, at this time we will plan for admission and initiation of heparin drip, patient has had issues with GI bleeding in the past, today her hemoglobin is stable at 11.6, no recent GI bleeding reported. We will initiate heparin drip and admit for anticoagulation strategy to be discussed, patient may also benefit from observation and possibly echocardiogram given that she did receive IV fluids here in the ED secondary to receiving IV contrast load for CT imaging. Patient's daughter at the bedside is in agreement to the above plan, patient was admitted to a telemetry bed for further management following my discussion with the [facility] hospitalist, Dr. Vargas. Diagnosis: 1. Bilateral pulmonary emboli 2. Upper abdominal discomfort 3. Chronic anemia 4. Acute on chronic kidney disease Disposition: Admission Dionicio Bush DO Emergency Medicine Past Med/Surg History Medical History Anemia recent hospitalization at [facility] 2 weeks ago Anticoagulated on Coumadin Anxiety Asthma, moderate persistent not well controlled, frequent nebulizer use Chronic diastolic CHF (congestive heart failure) follows with Dr. Benjamin CKD (chronic kidney disease), stage III follows with Dr. Hernandez COPD (chronic obstructive pulmonary disease) not well controlled Dyslipidemia GERD (gastroesophageal reflux disease) GI bleed recent hospitalization at 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 Father , Passed age 50 of [place] No problems noted. Brother Lung fibrosis Brother , Passed age 63 of allergic reaction to antibiotics No problems noted. Sister , Passed age 83 of "electrolyte disturbances" DCIS (ductal carcinoma in situ) Sister , Passed age 84 from post surgical complications No problems noted. Sister No problems noted. Daughter No problems noted. Daughter No problems noted. Son No problems noted. 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) Feels Safe at Home: Yes caffeine: No during the past year weight has: remained stable Assistive Devices: Denture - Upper, Denture - Lower, Glasses, Hearing Aid - Left, Hearing Aid - Right, Walker and Wheelchair Allergies 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, dock manager recommended not to take sulfamethoxazole Allergy Mild RASH Verified 09/24/21 15:27 trimethoprim Allergy Mild RASH Verified 09/24/21 15:27 amlodipine Allergy legs swell Verified 09/24/21 15:27 severe azithromycin Allergy Unknown Verified 09/24/21 15:27 cefuroxime [From Ceftin] Allergy Diarrhea Verified 09/24/21 15:27 ipratropium Allergy Anaphylaxis Verified 09/24/21 15:27 Sulfa (Sulfonamide Allergy Difficulty Verified 09/24/21 15:27 Antibiotics) Breathing Home Meds Home Medications Medication Instructions Recorded Confirmed allopurinol 100 mg tablet 200 mg PO QAM 02/19/19 09/24/21 atorvastatin 40 mg tablet 40 mg PO PM 02/19/19 09/24/21 azelastine 137 mcg (0.1 %) nasal 1 spray INTRANASAL BID 02/19/19 09/24/21 spray aerosol budesonide 0.5 mg/2 mL suspension 0.5 mg INHALATION BID 02/19/19 09/24/21 for nebulization calcium carbonate 600 mg calcium 600 mg PO PM 02/19/19 09/24/21 (1,500 mg) tablet carvedilol 25 mg tablet (Coreg) 12.5 mg PO BID 02/19/19 09/24/21 cholecalciferol (vitamin D3) 25 2,000 unit PO 3XWK 02/19/19 09/24/21 mcg (1,000 unit) capsule (Vitamin D3) escitalopram oxalate 10 mg tablet 5 mg PO QAM 02/19/19 09/24/21 (Lexapro) fexofenadine 180 mg tablet 180 mg PO QAM 02/19/19 09/24/21 levalbuterol HCl 1.25 mg/3 mL 1.25 mg INHALATION DIRECTED 02/19/19 09/24/21 solution for nebulization (Xopenex) levothyroxine 150 mcg capsule 150 mcg PO 4XWK 02/19/19 09/24/21 losartan 50 mg tablet 50 mg PO HS 02/19/19 09/24/21 montelukast 10 mg tablet 10 mg PO PM 02/19/19 09/24/21 nitroglycerin 0.4 mg sublingual 0.4 mg BUCCAL .UD PRN 02/19/19 09/24/21 tablet (Nitrostat) nystatin 100,000 unit/mL oral 5 ml PO BID 02/19/19 09/24/21 suspension pantoprazole 40 mg tablet,delayed 40 mg PO BID 02/19/19 09/24/21 release (Protonix) sodium chloride 0.65 % nasal spray 2 spray INTRANASAL QID PRN 02/19/19 09/24/21 aerosol (Saline Nasal) spironolactone 25 mg tablet 12.5 mg PO QAM 02/19/19 09/24/21 tamoxifen 20 mg tablet 20 mg PO QAM 02/19/19 09/24/21 triamcinolone acetonide 55 mcg 1 spray INTRANASAL BID 02/19/19 09/24/21 nasal spray aerosol (Nasacort) isosorbide mononitrate 60 mg 60 mg PO HS 11/15/20 09/24/21 tablet,extended release 24 hr levalbuterol tartrate 45 1 puff INHALATION Q4H PRN 11/15/20 09/24/21 mcg/actuation aerosol inhaler acetaminophen 500 mg tablet 500 mg PO TID 05/19/21 09/24/21 furosemide 40 mg tablet 40 mg PO QAM 05/19/21 09/24/21 levothyroxine 150 mcg tablet 225 mcg PO .3XW 05/19/21 09/24/21 magnesium oxide 400 mg (241.3 mg 400 mg PO QAM 05/19/21 09/24/21 magnesium) tablet potassium chloride 10 mEq 10 meq PO QAM 05/19/21 09/24/21 tablet,extended release prednisone 10 mg tablet 10 mg PO QAM 05/19/21 09/24/21 sucralfate 100 mg/mL oral 10 ml PO TID 05/19/21 09/24/21 suspension famotidine 20 mg tablet 20 mg PO BID 05/28/21 09/24/21 amoxicillin 500 mg capsule 500 mg PO BID 09/24/21 09/24/21 benzonatate 100 mg capsule 100 mg PO TID PRN 09/24/21 09/24/21 calcitriol 0.25 mcg capsule 0.25 mcg PO 3XWK 09/24/21 09/24/21 clotrimazole-betamethasone 1 1 applic TOPICAL BID PRN 09/24/21 09/24/21 %-0.05 % topical cream docusate sodium 50 mg capsule 50 mg PO BID 09/24/21 09/24/21 guaifenesin 600 mg tablet, 600 mg PO DAILY 09/24/21 09/24/21 extended release 12 hr (Mucinex) hydralazine 10 mg tablet 10 mg PO DAILY PRN 09/24/21 09/24/21 iron,carbonyl 65 mg-vitamin C 125 1 tab PO QAM 09/24/21 09/24/21 mg tablet,delayed release (Vitron-C) lidocaine HCl 2 % mucosal solution 1 applic TOPICAL DAILY PRN 09/24/21 09/24/21 polyethylene glycol 3350 17 gram 255 g PO DAILY 09/24/21 09/24/21 oral powder packet (Miralax) sucralfate 1 gram tablet (Carafate) 1 g PO TID 09/24/21 09/24/21 tramadol 50 mg tablet 50 mg PO Q6H PRN 09/24/21 09/24/21 triamcinolone acetonide 40 mg/mL 40 mg IM DAILY 09/24/21 09/24/21 suspension for injection Results & Data (ED) Vital Signs Vital Signs - 24 hr 09/24/21 10:08 09/24/21 10:43 09/24/21 12:06 Temperature 36.9 C Temperature Source Temporal Artery Scan Pulse Rate 74 Pulse Rate [Apical] 71 71 Pulse Rate from SpO2 Sensor Pulse Rhythm [Apical] Regular Pulse Strength [Apical] Normal Respiratory Rate 22 18 18 Respiratory Effort / Characteristics Non-Labored Spontaneous Non-Labored Spontaneous Respiratory Depth Normal Normal Respiratory Pattern Blood Pressure 123/58 L Blood Pressure [Left Arm] 143/74 H Blood Pressure Mean 79 Blood Pressure Mean [Left Arm] 97 Blood Pressure Position Sitting Pulse Oximetry 90 92 97 Oxygen Delivery Method Room Air Room Air Nasal Cannula Oxygen Flow Rate 92 2 Sepsis Recent Fever Within 48 Hours No Sepsis New/Unexplained Change in Mental Status No Sepsis Action Taken by Nursing No Action Required 09/24/21 15:00 09/24/21 16:01 09/24/21 17:00 Temperature Temperature Source Pulse Rate 73 74 76 Pulse Rate [Apical] 73 Pulse Rate from SpO2 Sensor 75 71 75 Pulse Rhythm [Apical] Regular Pulse Strength [Apical] Respiratory Rate 16 16 21 Respiratory Effort / Characteristics Non-Labored Respiratory Depth Normal Respiratory Pattern Regular Blood Pressure 161/96 H 155/73 H 167/88 H Blood Pressure [Left Arm] Blood Pressure Mean 117 100 114 Blood Pressure Mean [Left Arm] Blood Pressure Position Pulse Oximetry 99 100 99 Oxygen Delivery Method Nasal Cannula Nasal Cannula Oxygen Flow Rate 3 3 Sepsis Recent Fever Within 48 Hours Sepsis New/Unexplained Change in Mental Status Sepsis Action Taken by Nursing Laboratory Data Result diagrams: 09/24/21 10:40 09/24/21 10:40 Lab Results 09/24/21 09/24/21 09/24/21 Range/Units 10:40 10:40 10:40 WBC 10.79 (4.8-10.8) K/uL RBC 3.84 L (4.2-5.4) M/uL Hgb 11.6 L (12.0-16.0) g/dL Hct 36.5 L (37-47) % MCV 95.1 (80-100) fL MCH 30.2 (25-34) pg MCHC 31.8 L (32-36) g/dL RDW Std Deviation 53.3 H (36.4-46.3) fL RDW Coeff of Chrissy 15.4 H (11.5-14.5) % Plt Count 193 (130-400) K/uL MPV 11.3 H (7.4-10.4) fL Immature Gran % (Auto) 0.6 % Neut % (Auto) 67.4 % Lymph % (Auto) 15.9 % [place] % (Auto) 13.2 % Eos % (Auto) 2.6 % Baso % (Auto) 0.3 % Neut # (Auto) 7.27 H (1.4-6.5) K/uL Lymph # (Auto) 1.72 (1.2-3.4) K/uL [place] # (Auto) 1.42 H (0.11-0.59) K/uL Eos # (Auto) 0.28 (0-0.5) K/uL Baso # (Auto) 0.03 (0-0.2) K/uL Immature Gran # (Auto) 0.07 H (0.00-0.02) K/uL PT (9.0-12.0) Seconds INR (0.9-1.1) APTT (21.0-31.0) Seconds PTT Ratio D-Dimer Sodium 137 (136-145) mmol/L Potassium 3.7 (3.5-5.1) mmol/L Chloride 97 L (98-107) mmol/L Carbon Dioxide 30 (21-32) mmol/L Anion Gap 10 (3-11) BUN 48 H (6-23) mg/dl Creatinine 2.01 H (0.6-1.2) mg/dl Est Cr Clr Drug Dosing 16.1 ml/min Est GFR ( Amer) 24.9 ml/min Est GFR (Non-Af Amer) 21.5 ml/min BUN/Creatinine Ratio 23.9 H (10-20) Glucose 138 H (70-99(Fasting)) mg/dl Calcium 9.3 (8.5-10.1) mg/dl Magnesium 1.9 (1.7-2.4) mg/dl Total Bilirubin 0.5 (0.2-1.0) mg/dl AST 11 L (13-39) U/L ALT 7 (7-52) U/L Alkaline Phosphatase 75 (34-104) U/L Troponin I High Sens 10.2 (0-14) pg/ml Total Protein 6.2 (6.0-8.3) gm/dl Albumin 3.4 (3.4-5.0) gm/dl Globulin 2.8 (2.5-4.0) gm/dl Albumin/Globulin Ratio 1.2 (0.9-2) TSH 8.247 H (0.300-4.500) uIu/ml Free T4 1.37 (0.61-1.60) ng/dl 09/24/21 09/24/21 09/24/21 Range/Units 10:40 11:13 11:13 WBC (4.8-10.8) K/uL RBC (4.2-5.4) M/uL Hgb (12.0-16.0) g/dL Hct (37-47) % MCV (80-100) fL MCH (25-34) pg MCHC (32-36) g/dL RDW Std Deviation (36.4-46.3) fL RDW Coeff of Chrissy (11.5-14.5) % Plt Count (130-400) K/uL MPV (7.4-10.4) fL Immature Gran % (Auto) % Neut % (Auto) % Lymph % (Auto) % [place] % (Auto) % Eos % (Auto) % Baso % (Auto) % Neut # (Auto) (1.4-6.5) K/uL Lymph # (Auto) (1.2-3.4) K/uL [place] # (Auto) (0.11-0.59) K/uL Eos # (Auto) (0-0.5) K/uL Baso # (Auto) (0-0.2) K/uL Immature Gran # (Auto) (0.00-0.02) K/uL PT 10.6 (9.0-12.0) Seconds INR 1.0 (0.9-1.1) APTT 27.3 (21.0-31.0) Seconds PTT Ratio 1.0 D-Dimer Cancelled 5710 H* Sodium (136-145) mmol/L Potassium (3.5-5.1) mmol/L Chloride (98-107) mmol/L Carbon Dioxide (21-32) mmol/L Anion Gap (3-11) BUN (6-23) mg/dl Creatinine (0.6-1.2) mg/dl Est Cr Clr Drug Dosing ml/min Est GFR ( Amer) ml/min Est GFR (Non-Af Amer) ml/min BUN/Creatinine Ratio (10-20) Glucose (70-99(Fasting)) mg/dl Calcium (8.5-10.1) mg/dl Magnesium (1.7-2.4) mg/dl Total Bilirubin (0.2-1.0) mg/dl AST (13-39) U/L ALT (7-52) U/L Alkaline Phosphatase (34-104) U/L Troponin I High Sens (0-14) pg/ml Total Protein (6.0-8.3) gm/dl Albumin (3.4-5.0) gm/dl Globulin (2.5-4.0) gm/dl Albumin/Globulin Ratio (0.9-2) TSH (0.300-4.500) uIu/ml Free T4 (0.61-1.60) ng/dl Administered Medications Discontinued Medications Al Hydrox/Mg Hydrox/Simethicone (Gi Cocktail Ed Use) 1 dose PO ONE ONE Stop: 09/24/21 12:43 Last Admin: 09/24/21 13:05 Dose: 1 dose Documented by: [id number] Sodium Chloride (Nss 1000ml) 500 mls @ 999 mls/hr IV .Q31M ONE Stop: 09/24/21 11:17 Last Infusion: 09/24/21 12:09 Dose: 0 mls/hr Documented by: [id number] Admin: 09/24/21 11:10 Dose: 999 mls/hr Documented by: [id number] Acetaminophen (Ofirmev) 1,000 mg in 100 mls @ 400 mls/hr IV NOW STA Stop: 09/24/21 11:04 Last Infusion: 09/24/21 12:08 Dose: 0 mls/hr Documented by: [id number] Admin: 09/24/21 11:09 Dose: 400 mls/hr Documented by: [id number] Sodium Chloride (Nss) 500 mls @ 999 mls/hr IV .Q31M ONE Stop: 09/24/21 13:12 Last Infusion: 09/24/21 13:36 Dose: 0 mls/hr Documented by: [id number] Admin: 09/24/21 13:05 Dose: 999 mls/hr Documented by: [id number] Ioversol (Optiray 320 100ml) 95 ml IV ONCE ONE Stop: 09/24/21 12:31 Last Admin: 09/24/21 12:16 Dose: 95 ml Documented by: [id number] Ioversol (Optiray 320 125ml) 118 ml IV ONCE ONE Stop: 09/24/21 15:49 Last Admin: 09/24/21 15:50 Dose: 118 ml Documented by: [id number] Ondansetron HCl (Ondansetron Inj 2 Mg/Ml 2 Ml Vial) 4 mg IV NOW STA Stop: 09/24/21 10:48 Last Admin: 09/24/21 11:09 Dose: 4 mg Documented by: [id number] Imaging Data Radiologist's Impression: Chest X-Ray 09/24/21 10:35 XR chest 1V portable HISTORY: 89 years-old Female Dysrhythmia acute atypical chest pain COMPARISON: Chest radiographs 05/19/2021 TECHNIQUE: Portable AP view of the chest FINDINGS: The cardiac silhouette is enlarged. Small left and probable trace right pleural effusions. Mild left lung base opacities. No pneumothorax or overt pulmonary edema. Degenerative changes of the shoulders and spine. IMPRESSION: 1. Cardiomegaly without overt pulmonary edema. 2. Left greater than right pleural effusions with mild left basilar consolidation. ACT 112: Negative or not required by law. The above report was generated using voice recognition software. It may contain grammatical, syntax or spelling errors. Electronically signed by: Isaac Pierre M.D. 09/24/2021 10:54 AM Abdomen/Pelvis CT 09/24/21 10:47 CT abd pelvis IV con only CLINICAL HISTORY: Upper abdominal pain TECHNIQUE: Helical axial images of the abdomen and pelvis were obtained and displayed. Automated dose lowering techniques and/or adjustment according to pa tient size were utilized for this exam. This exam was performed with intravenous contrast. CT DOSE: 811.92 mGycm COMPARISON: Comparison is made to CT abdomen pelvis 12/30/2017 FINDINGS: Lower chest: Cardiomegaly is partially visualized. Atelectasis is seen in the left greater than right lung bases. Liver: Unremarkable. No focal lesions are seen. Gallbladder and biliary tree: Cholelithiasis is seen without evidence of cholecystitis. No intra- or extrahepatic biliary ductal dilation. Pancreas: Unremarkable, no focal lesions. Spleen: Splenule is incidentally noted. Adrenals: Unremarkable. Kidneys and ureters: Subcentimeter hypodensities are too small to characterize. Bladder: Unremarkable. Reproductive organs: Patient is status post hysterectomy. Bowel: Diverticulosis is seen without evidence of diverticulitis. A moderate hiatal hernia is seen. Lymph nodes Retroperitoneal: Subcentimeter lymph nodes are noted. Mesenteric: Unremarkable. Pelvic: Unremarkable. Peritoneum: Normal. Vessels: Atherosclerotic calcifications are seen. Abdominal wall: Unremarkable. Bones: Degenerative changes in the visualized spine. Grade 1 anterolisthesis is seen at L4-L5. IMPRESSION: 1. No acute abnormality is seen. Gallbladder sludge is noted without evidence o f acute cholecystitis. 2. Trace left pleural effusion. Atelectasis is seen at the lung bases. Cardiomegaly is noted. ACT 112: Negative or not required by law. Electronically signed by: Ayo Simon M.D. 09/24/2021 12:34 PM Chest CTA 09/24/21 14:50 CT angio chest PE protocol CLINICAL HISTORY: PE TECHNIQUE: Multidetector row helical CT of the chest was performed with angiographic protocol. Coronal and sagittal reformations were obtained. Coronal and sagittal MIPS were obtained from the axial data set and were submitted for review. Automated dose lowering techniques and/or adjustment according to patient size were utilized for this exam. CT DOSE: 328.26 mGy.cm Comparison: Comparison is made to CTA chest 02/19/2019 FINDINGS: Lungs and pleura: Atelectasis versus scarring is seen in the dependent portions of the lungs. Heart and pericardium: Heart size is normal. No pericardial effusion. Vessels: Nonocclusive pulmonary embolus is seen in the left lower lobe are artery with occlusion of a segmental branch. Nonocclusive segmental embolus is also seen in the right lower lobe and right upper lobe. No right heart strain is seen. Mediastinum and day: Unremarkable. Chest wall and lower neck: Unremarkable. Abdomen: Unremarkable. Bones: Degenerative changes in the thoracic spine. IMPRESSION: Segmental pulmonary emboli are seen without evidence of right heart strain. ACT 112: Negative or not required by law. Electronically signed by: Ayo Simon M.D. 09/24/2021 4:06 PM Discharge Plan Visit Data Chief Complaint: Arrhythmia/Palpitations Stated Complaint: HEART PALPTITATIONS, INDEGESTION ED Provider: Dionicio Bush Discharge Problem: Epigastric abdominal pain, Bilateral pulmonary embolism Patient Disposition: Home - Self-Care Condition: Good Discharge Instructions Ivy/Other Patient Handouts: ED Epigastric Pain Uncertain Cause Activity Restrictions/Additional Instructions: Please follow-up with your primary care doctor in 2 to 3 days, please return the emergency department with any new or worsening symptoms. Forms Stand Alone Forms: [facility], Virtual Emergency Department, Important Visit Information Prescriptions Prescriptions: No Action atorvastatin 40 mg Tablet 40 mg PO PM RF: 0 carvedilol [Coreg] 25 mg Tablet 12.5 mg PO BID RF: 0 allopurinol 100 mg Tablet 200 mg PO QAM RF: 0 spironolactone 25 mg Tablet 12.5 mg PO QAM RF: 0 budesonide 0.5 mg/2 mL Suspension For Nebulization 0.5 mg INHALATION BID RF: 0 levalbuterol HCl [Xopenex] 1.25 mg/3 mL Solution For Nebulization 1.25 mg INHALATION DIRECTED RF: 0 tamoxifen 20 mg Tablet 20 mg PO QAM RF: 0 levothyroxine 150 mcg Capsule 150 mcg PO 4XWK RF: 0 losartan 50 mg Tablet 50 mg PO HS RF: 0 pantoprazole [Protonix] 40 mg Tablet,Delayed Release (Dr/Ec) 40 mg PO BID RF: 0 nitroglycerin [Nitrostat] 0.4 mg Tablet, Sublingual 0.4 mg buccal .UD PRN (Reason: Chest Pain) RF: 0 montelukast 10 mg Tablet 10 mg PO PM RF: 0 cholecalciferol (vitamin D3) [Vitamin D3] 1,000 unit Capsule 2,000 unit PO 3XWK RF: 0 escitalopram oxalate [Lexapro] 10 mg Tablet 5 mg PO QAM RF: 0 fexofenadine 180 mg Tablet 180 mg PO QAM RF: 0 calcium carbonate 600 mg calcium (1,500 mg) Tablet 600 mg PO PM RF: 0 triamcinolone acetonide [Nasacort] 55 mcg Aerosol,[place] 1 spray INTRANASAL BID RF: 0 azelastine 137 mcg (0.1 %) Aerosol,[place] 1 spray INTRANASAL BID RF: 0 Saline Nasal 0.65 % Aerosol,[place] 2 spray INTRANASAL QID PRN (Reason: Nasal Congestion) RF: 0 nystatin 100,000 unit/mL suspension 5 ml PO BID RF: 0 famotidine 20 mg Tablet 20 mg PO BID RF: 0 isosorbide mononitrate 60 mg tablet extended release 24 hr 60 mg PO HS RF: 0 levalbuterol tartrate 45 mcg/actuation HFA aerosol inhaler 1 puff INHALATION Q4H PRN (Reason: Wheezing) RF: 0 furosemide 40 mg tablet 40 mg PO QAM RF: 0 magnesium oxide 400 mg (241.3 mg magnesium) tablet 400 mg PO QAM RF: 0 potassium chloride 10 mEq tablet extended release 10 meq PO QAM RF: 0 prednisone 10 mg Tablet 10 mg PO QAM RF: 0 sucralfate 100 mg/mL suspension 10 ml PO TID RF: 0 acetaminophen 500 mg Tablet 500 mg PO TID RF: 0 levothyroxine 150 mcg Tablet 225 mcg PO .3XW RF: 0 amoxicillin 500 mg capsule 500 mg PO BID RF: 0 hydralazine 10 mg tablet 10 mg PO DAILY PRN (Reason: Unknown) RF: 0 polyethylene glycol 3350 [Miralax] 17 gram Powder In Packet 255 g PO DAILY RF: 0 sucralfate [Carafate] 1 gram Tablet 1 g PO TID RF: 0 docusate sodium 50 mg Capsule 50 mg PO BID RF: 0 tramadol 50 mg Tablet 50 mg PO Q6H PRN (Reason: Pain) RF: 0 benzonatate 100 mg Capsule 100 mg PO TID PRN (Reason: Cough) RF: 0 triamcinolone acetonide [Triamcinolone Acetate] 40 mg/mL Suspension 40 mg IM DAILY RF: 0 clotrimazole-betamethasone 1-0.05 % cream 1 applic TOPICAL BID PRN (Reason: Unknown) RF: 0 lidocaine HCl 2 % Solution 1 applic topical DAILY PRN (Reason: Unknown) RF: 0 calcitriol 0.25 mcg capsule 0.25 mcg PO 3XWK RF: 0 Vitron-C 65 mg iron- 125 mg tablet,delayed release (DR/EC) 1 tab PO QAM RF: 0 guaifenesin [Mucinex] 600 mg Tablet Extended Release 12hr 600 mg PO DAILY RF: 0 Referrals Referrals: Urszula Calvert MD [Primary Care Provider] -
--- NOTE | 2021-09-24 10:55 | XRay Report ---
XR chest 1V portable HISTORY: 89 years-old Female Dysrhythmia acute atypical chest pain COMPARISON: Chest radiographs 05/19/2021 TECHNIQUE: Portable AP view of the chest FINDINGS: The cardiac silhouette is enlarged. Small left and probable trace right pleural effusions. Mild left lung base opacities. No pneumothorax or overt pulmonary edema. Degenerative changes of the shoulders and spine. IMPRESSION: 1. Cardiomegaly without overt pulmonary edema. 2. Left greater than right pleural effusions with mild left basilar consolidation. ACT 112: Negative or not required by law. The above report was generated using voice recognition software. It may contain grammatical, syntax o r spelling errors. Electronically signed by: Isaac Pierre M.D. 09/24/2021 10:54 AM
[2021-09-24 11:04] LABS: Basophils # (auto) 0.03 K/uL (0-0.2); Basophils % (auto) 0.3 %; Eosinophils # (auto) 0.28 K/uL (0-0.5); Eosinophils % (auto) 2.6 %; Hematocrit (blood only) 36.5 % (37-47); Hemoglobin 11.6 g/dL (12.0-16.0); Immature Granulocytes # (auto) 0.07 K/uL (0.00-0.02); Immature Granulocytes % (auto) 0.6 %; Lymphocytes # (auto) 1.72 K/uL (1.2-3.4); Lymphocytes % (auto) 15.9 %; Mean Corpuscular Hemoglobin 30.2 pg (25-34); Mean Corpuscular Hgb Conc 31.8 g/dL (32-36); Mean Corpuscular Volume 95.1 fL (80-100); Mean Platelet Volume 11.3 fL (7.4-10.4); Monocytes # (auto) 1.42 K/uL (0.11-0.59); Monocytes % (auto) 13.2 %; Neutrophils # (auto) 7.27 K/uL (1.4-6.5); Neutrophils % (auto) 67.4 %; Platelet Count 193 K/uL (130-400); RDW Coefficient of Variation 15.4 % (11.5-14.5); RDW Standard Deviation 53.3 fL (36.4-46.3); Red Blood Count 3.84 M/uL (4.2-5.4); White Blood Count 10.79 K/uL (4.8-10.8)
[2021-09-24 11:16] LABS: Albumin Globulin Ratio 1.2 (0.9-2); Albumin Level 3.4 gm/dl (3.4-5.0); BUN Creatinine Ratio 23.9 (10-20); Bilirubin,Total 0.5 mg/dl (0.2-1.0); Calcium 9.3 mg/dl (8.5-10.1); Creatinine Clr Calc Pharmacy 16.1 ml/min; Est GFR (African American) 24.9 ml/min; Est GFR (Non-African American) 21.5 ml/min; Globulin 2.8 gm/dl (2.5-4.0); Magnesium 1.9 mg/dl (1.7-2.4); Potassium 3.7 mmol/L (3.5-5.1); Total Protein 6.2 gm/dl (6.0-8.3)
[2021-09-24 11:20] LABS: Troponin I High Sensitivity 10.2 pg/ml (0-14)
[2021-09-24 11:53] LABS: Thyroid Stimulating Hormone 8.247 uIu/ml (0.300-4.500)
[2021-09-24 12:29] LABS: T4 Free Thyroxine 1.37 ng/dl (0.61-1.60)
[2021-09-24] MEDS ORDERED: OPTIRAY 320 100ml IV ONE (12:30)
--- NOTE | 2021-09-24 12:36 | CT Scan Report ---
CT abd pelvis IV con only CLINICAL HISTORY: Upper abdominal pain TECHNIQUE: Helical axial images of the abdomen and pelvis were obtained and displayed. Automated dose lowering techniques and/or adjustment according to patient size were utilized for this exam. This e xam was performed with intravenous contrast. CT DOSE: 811.92 mGycm COMPARISON: Comparison is made to CT abdomen pelvis 12/30/2017 FINDINGS: Lower chest: Cardiomegaly is partially visualized. Atelectasis is seen in the left greater than righ t lung bases. Liver: Unremarkable. No focal lesions are seen. Gallbladder and biliary tree: Cholelithiasis is seen without evidence of cholecystitis. No intra- or extrahepatic biliary ductal dilation. Pancreas: Unremarkable, no focal lesions. Spleen: Splenule is incidentally noted. Adrenals: Unremarkable. Kidneys and ureters: Subcentimeter hypodensities are too small to characterize. Bladder: Unremarkable. Reproductive organs: Patient is status post hysterectomy. Bowel: Diverticulosis is seen without evidence of diverticulitis. A moderate hiatal hernia is seen. Lymph nodes Retroperitoneal: Subcentimeter lymph nodes are noted. Mesenteric: Unremarkable. Pelvic: Unremarkable. Peritoneum: Normal. Vessels: Atherosclerotic calcifications are seen. Abdominal wall: Unremarkable. Bones: Degenerative changes in the visualized spine. Grade 1 anterolisthesis is seen at L4-L5. IMPRESSION: 1. No acute abnormality is seen. Gallbladder sludge is noted without evidence of acute cholecystitis . 2. Trace left pleural effusion. Atelectasis is seen at the lung bases. Cardiomegaly is noted. ACT 112: Negative or not required by law. Electronically signed by: Ayo Simon M.D. 09/24/2021 12:34 PM
[2021-09-24] MEDS ORDERED: GI COCKTAIL ED USE PO ONE (12:42)
[2021-09-24] MEDS ORDERED: SODIUM CHLORIDE 0.9% 500 ML IV ONE (12:42)
[2021-09-24] MEDS ORDERED: OPTIRAY 320 125ml IV ONE (15:48)
--- NOTE | 2021-09-24 16:08 | CT Scan Report ---
CT angio chest PE protocol CLINICAL HISTORY: PE TECHNIQUE: Multidetector row helical CT of the chest was performed with angiographic protocol. Barger l and sagittal reformations were obtained. Coronal and sagittal MIPS were obtained from the axial erica a set and were submitted for review. Automated dose lowering techniques and/or adjustment according to patient size were utilized for this exam. CT DOSE: 328.26 mGy.cm Comparison: Comparison is made to CTA chest 02/19/2019 FINDINGS: Lungs and pleura: Atelectasis versus scarring is seen in the dependent portions of the lungs. Heart and pericardium: Heart size is normal. No pericardial effusion. Vessels: Nonocclusive pulmonary embolus is seen in the left lower lobe are artery with occlusion of a segmental branch. Nonocclusive segmental embolus is also seen in the right lower lobe and right uppe r lobe. No right heart strain is seen. Mediastinum and day: Unremarkable. Chest wall and lower neck: Unremarkable. Abdomen: Unremarkable. Bones: Degenerative changes in the thoracic spine. IMPRESSION: Segmental pulmonary emboli are seen without evidence of right heart strain. ACT 112: Negative or not required by law. Electronically signed by: Ayo Simon M.D. 09/24/2021 4:06 PM
[2021-09-24] MEDS ORDERED: Heparin IV Adult Wt-Based Standard WITH Bolus Protocol IV STA (16:29)
[2021-09-24] MEDS ORDERED: HEPARIN SOD (PORCINE) 1000 UNIT/ML IV ONE ×2 (16:44)
--- NOTE | 2021-09-24 17:05 | History & Physical Report ---
Date of Service September 24, 2021 Assessment & Plan (1) Bilateral pulmonary embolism: (2) DVT, bilateral lower limbs: (3) Chronic diastolic (congestive) heart failure: (4) PAF (paroxysmal atrial fibrillation): (5) Hypothyroidism (acquired): (6) GERD (gastroesophageal reflux disease): Plan: Bilateral segmental PE with bilateral DVT LE, no heart strain- on tamoxifen for breast cancer which could be the culprit. - 1st episode, hemodynamically stable, hypoxia stable on home oxygne - CTA chest and US LE reviewed as below. Will check echo - Start on heparin drip to see how she would tolerate given UGI bleed on coumadin back in May. If tolerates, can change to DOAC or coumadin. If does not tolerate, will need IVC filter. - Hold tamoxifen, follow up with oncology for further discussion Chronic diastolic CHF- looks compensated but she was given IVF in ED for dye load because of her CKD. Will give a dose of iv lasix tonight and continue home lasix 60 bid from tomorrow morning (takes at 9 am and 1 pm at home). continue daily weight, strict I and Os, check echo. Follows with cardio as OP. Will consult cardio as per daughter's request. Chronic hypoxic respiratory failure- on NC at 2 L at home, continue. CARLO on CKD4- baseline Cr seems to be 1.2-1.6, currently elevated to 2.01. Also received contrast today. monitor Cr. Avoid nephrotoxics PAF- currently in sinus rhythm. Previously in coumadin taken off May 2021. 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 Continue synthroid at home dose. 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 F/u with onc DVT ppx- heparin drip Dispo- PCU on tele Full code per daughter Updated daughter at bedside and answered all her questions History of Present Illness Chief Complaint: leg pain, upper abd discomfort, palpitations Primary Care Provider: Urszula Calvert MD 89 year old female with h/p PAF off of anticoag coumadin since 05/2021 due to UGI bleed, chronic diastolic CHF, moderate persistent asthma, hypertension, CKD4, h/o thyroid cancer, hypothyroidism, hyperparathyroidism who presented to the ED with leg pain, upper abd discomfort and palpitations for the past 2-3 days. Family doctor started her on gabapentin which they have not started yet. Daughter was not convinced and thought she had clots and brought to the ED for evaluation. In the ED, she had CTA chest which showed bilateral segmental PE. US LE showed bilateral DVT. This is her first VTE episode, She is on her home oxygen, at baseline here. She was on coumadin for A fib which was taken off in May due to UGI bleed. She is on tamoxifen for her breast cancer. She is hemodynamically stable, not short of breath, dizzy. She denies any issues to me during my encounter. Daughter says she does not ambulate much. Daughter at bedside provided most of history and helped me go through all the medications. She wanted cardiology to be involved in her care. 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, teleservices representative recommended not to take sulfamethoxazole Allergy Mild RASH Verified 09/24/21 15:27 trimethoprim Allergy Mild RASH Verified 09/24/21 15:27 amlodipine Allergy legs swell Verified 09/24/21 15:27 severe azithromycin Allergy Unknown Verified 09/24/21 15:27 cefuroxime [From Ceftin] Allergy Diarrhea Verified 09/24/21 15:27 ipratropium Allergy Anaphylaxis Verified 09/24/21 15:27 Sulfa (Sulfonamide Allergy Difficulty Verified 09/24/21 15:27 Antibiotics) Breathing Home Medications Medication Instructions Recorded Confirmed Type allopurinol 100 mg tablet 200 mg PO QAM 02/19/19 09/24/21 History atorvastatin 40 mg tablet 40 mg PO PM 10/08/19 05/13/22 History azelastine 137 mcg (0.1 %) nasal 1 spray INTRANASAL BID 02/19/19 09/24/21 History spray aerosol budesonide 0.5 mg/2 mL suspension 0.5 mg INHALATION BID 02/19/19 09/24/21 History for nebulization calcium carbonate 600 mg calcium 600 mg PO PM 02/19/19 09/24/21 History (1,500 mg) tablet carvedilol 25 mg tablet (Coreg) 12.5 mg PO BID 02/19/19 09/24/21 History cholecalciferol (vitamin D3) 25 2,000 unit PO 3XWK 02/19/19 09/24/21 History mcg (1,000 unit) capsule (Vitamin D3) escitalopram oxalate 10 mg tablet 5 mg PO QAM 02/19/19 09/24/21 History (Lexapro) fexofenadine 180 mg tablet 180 mg PO QAM 02/19/19 09/24/21 History levalbuterol HCl 1.25 mg/3 mL 1.25 mg INHALATION DIRECTED 02/19/19 09/24/21 History solution for nebulization (Xopenex) levothyroxine 150 mcg capsule 150 mcg PO 4XWK 02/19/19 09/24/21 History losartan 50 mg tablet 50 mg PO HS 02/19/19 09/24/21 History montelukast 10 mg tablet 10 mg PO PM 02/19/19 09/24/21 History nitroglycerin 0.4 mg sublingual 0.4 mg BUCCAL .UD PRN 02/19/19 09/24/21 History tablet (Nitrostat) nystatin 100,000 unit/mL oral 5 ml PO BID 02/19/19 09/24/21 History suspension pantoprazole 40 mg tablet,delayed 40 mg PO BID 02/19/19 09/24/21 History release (Protonix) sodium chloride 0.65 % nasal spray 2 spray INTRANASAL QID PRN 02/19/19 09/24/21 History aerosol (Saline Nasal) spironolactone 25 mg tablet 12.5 mg PO QAM 02/19/19 09/24/21 History tamoxifen 20 mg tablet 20 mg PO QAM 02/19/19 09/24/21 History triamcinolone acetonide 55 mcg 1 spray INTRANASAL BID 02/19/19 09/24/21 History nasal spray aerosol (Nasacort) isosorbide mononitrate 60 mg 60 mg PO HS 11/15/20 09/24/21 History tablet,extended release 24 hr levalbuterol tartrate 45 1 puff INHALATION Q4H PRN 11/15/20 09/24/21 History mcg/actuation aerosol inhaler acetaminophen 500 mg tablet 500 mg PO TID 05/19/21 09/24/21 History furosemide 40 mg tablet 40 mg PO QAM 05/19/21 09/24/21 History levothyroxine 150 mcg tablet 225 mcg PO .3XW 05/19/21 09/24/21 History magnesium oxide 400 mg (241.3 mg 400 mg PO QAM 05/19/21 09/24/21 History magnesium) tablet potassium chloride 10 mEq 10 meq PO QAM 05/19/21 09/24/21 History tablet,extended release prednisone 10 mg tablet 10 mg PO QAM 05/19/21 09/24/21 History sucralfate 100 mg/mL oral 10 ml PO TID 05/19/21 09/24/21 History suspension famotidine 20 mg tablet 20 mg PO BID 05/28/21 09/24/21 History amoxicillin 500 mg capsule 500 mg PO BID 09/24/21 09/24/21 History benzonatate 100 mg capsule 100 mg PO TID PRN 09/24/21 09/24/21 History calcitriol 0.25 mcg capsule 0.25 mcg PO 3XWK 09/24/21 09/24/21 History clotrimazole-betamethasone 1 1 applic TOPICAL BID PRN 09/24/21 09/24/21 History %-0.05 % topical cream docusate sodium 50 mg capsule 50 mg PO BID 09/24/21 09/24/21 History guaifenesin 600 mg tablet, 600 mg PO DAILY 09/24/21 09/24/21 History extended release 12 hr (Mucinex) hydralazine 10 mg tablet 10 mg PO DAILY PRN 09/24/21 09/24/21 History iron,carbonyl 65 mg-vitamin C 125 1 tab PO QAM 09/24/21 09/24/21 History mg tablet,delayed release (Vitron-C) lidocaine HCl 2 % mucosal solution 1 applic TOPICAL DAILY PRN 09/24/21 09/24/21 History polyethylene glycol 3350 17 gram 255 g PO DAILY 09/24/21 09/24/21 History oral powder packet (Miralax) sucralfate 1 gram tablet (Carafate) 1 g PO TID 09/24/21 09/24/21 History tramadol 50 mg tablet 50 mg PO Q6H PRN 09/24/21 09/24/21 History triamcinolone acetonide 40 mg/mL 40 mg IM DAILY 09/24/21 09/24/21 History suspension for injection Past Med/Surg History Medical History Anemia recent hospitalization at [facility] 2 weeks ago Anticoagulated on Coumadin Anxiety Asthma, moderate persistent not well controlled, frequent nebulizer use Chronic diastolic CHF (congestive heart failure) follows with Dr. Benjamin CKD (chronic kidney disease), stage III follows with Dr. Hernandez COPD (chronic obstructive pulmonary disease) not well controlled Dyslipidemia GERD (gastroesophageal reflux disease) GI bleed recent hospitalization at [facility] > 1 unit blood Gout Hard of hearing bilat aides Heart disease "nonobstructive disease per cath 2011" Hiatal hernia History of breast cancer x2 > > no chemo just tamxifen for custodial use, no surgeries Hypothyroidism (acquired) "s/p thyroidectomy and radioiodine therapy for cancer treatment" Hysterectomy (02/22/13) IBS (irritable bowel syndrome) Labile hypertension Osteoporosis (02/22/13) PAF (paroxysmal atrial fibrillation) hx of 10 yrs ago > no longer on ASA or Coumadin as of 2 weeks ago Thyroid ca 2016 - Left - 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 Father , Passed age 50 of [place] No problems noted. Brother Lung fibrosis Brother , Passed age 63 of allergic reaction to antibiotics No problems noted. Sister , Passed age 83 of "electrolyte disturbances" DCIS (ductal carcinoma in situ) Sister , Passed age 84 from post surgical complications No problems noted. Sister No problems noted. Daughter No problems noted. Daughter No problems noted. Son No problems noted. 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 [employer] Feels Safe at Home: Yes caffeine: No during the past year weight has: remained stable Assistive Devices: Denture - Upper, Denture - Lower, Glasses, Hearing Aid - Left, Hearing Aid - Right, Walker and Wheelchair Review of Systems Review of Systems: All systems reviewed & are unremarkable except as noted in Subjective Physical Exam Physical Exam: General: Lying comfortably in bed, not in distress, on NC HEENT: EOMI, KEITH, MMM Chest: Fair breath sounds bilaterally with some expiratory wheezes CVS: Regular rate and rhythm, normal heart sounds, no murmur Abdomen: Soft, non tender, not distended, normal bowel sounds Neuro: Awake, alert, oriented, conversing well, non focal Extremities: No cyanosis, clubbing, chronic LE edema Results & Data Results & Data ([facility]) Vital Signs (Past 12 Hours) Vital Signs Temp Pulse Pulse Resp BP BP Pulse Ox 09/24/21 16:01 74 16 155/73 H 100 09/24/21 15:00 73 73 16 161/96 H 99 09/24/21 12:06 71 18 97 09/24/21 10:43 71 18 143/74 H 92 09/24/21 10:08 36.9 C 74 22 123/58 L 90 Laboratory Results Short CBC 09/24/21 Range/Units 10:40 WBC 10.79 (4.8-10.8) K/uL Hgb 11.6 L (12.0-16.0) g/dL Hct 36.5 L (37-47) % Plt Count 193 (130-400) K/uL BMP 09/24/21 10:40 Sodium 137 Potassium 3.7 Chloride 97 L Carbon Dioxide 30 BUN 48 H Creatinine 2.01 H Glucose 138 H Calcium 9.3 Liver Function 09/24/21 Range/Units 10:40 Total Bilirubin 0.5 (0.2-1.0) mg/dl AST 11 L (13-39) U/L ALT 7 (7-52) U/L Alkaline Phosphatase 75 (34-104) U/L Albumin 3.4 (3.4-5.0) gm/dl Diagnostic Findings Chest X-Ray 09/24/21 10:35 XR chest 1V portable HISTORY: 89 years-old Female Dysrhythmia acute atypical chest pain COMPARISON: Chest radiographs 05/19/2021 TECHNIQUE: Portable AP view of the chest FINDINGS: The cardiac silhouette is enlarged. Small left and probable trace right pleural effusions. Mild left lung base opacities. No pneumothorax or overt pulmonary edema. Degenerative changes of the shoulders and spine. IMPRESSION: 1. Cardiomegaly without overt pulmonary edema. 2. Left greater than right pleural effusions with mild left basilar consolidatio n. ACT 112: Negative or not required by law. The above report was generated using voice recognition software. It may contain grammatical, syntax or spelling errors. Electronically signed by: Isaac Pierre M.D. 09/24/2021 10:54 AM Abdomen/Pelvis CT 09/24/21 10:47 CT abd pelvis IV con only CLINICAL HISTORY: Upper abdominal pain TECHNIQUE: Helical axial images of the abdomen and pelvis were obtained and displayed. Automated dose lowering techniques and/or adjustment according to patient size were utilized for this exam. This exam was performed with intravenous contrast. CT DOSE: 811.92 mGycm COMPARISON: Comparison is made to CT abdomen pelvis 12/30/2017 FINDINGS: Lower chest: Cardiomegaly is partially visualized. Atelectasis is seen in the left greater than right lung bases. Liver: Unremarkable. No focal lesions are seen. Gallbladder and biliary tree: Cholelithiasis is seen without evidence of cholecystitis. No intra- or extrahepatic biliary ductal dilation. Pancreas: Unremarkable, no focal lesions. Spleen: Splenule is incidentally noted. Adrenals: Unremarkable. Kidneys and ureters: Subcentimeter hypodensities are too small to characterize. Bladder: Unremarkable. Reproductive organs: Patient is status post hysterectomy. Bowel: Diverticulosis is seen without evidence of diverticulitis. A moderate hia mata hernia is seen. Lymph nodes Retroperitoneal: Subcentimeter lymph nodes are noted. Mesenteric: Unremarkable. Pelvic: Unremarkable. Peritoneum: Normal. Vessels: Atherosclerotic calcifications are seen. Abdominal wall: Unremarkable. Bones: Degenerative changes in the visualized spine. Grade 1 anterolisthesis is seen at L4-L5. IMPRESSION: 1. No acute abnormality is seen. Gallbladder sludge is noted without evidence of acute cholecystitis. 2. Trace left pleural effusion. Atelectasis is seen at the lung bases. Cardiomegaly is noted. ACT 112: Negative or not required by law. Electronically signed by: Ayo Simon M.D. 09/24/2021 12:34 PM Chest CTA 09/24/21 14:50 CT angio chest PE protocol CLINICAL HISTORY: PE TECHNIQUE: Multidetector row helical CT of the chest was performed with angiographic protocol. Coronal and sagittal reformations were obtained. Coronal and sagittal MIPS were obtained from the axial data set and were submitted for review. Automated dose lowering techniques and/or adjustment according to patient size were utilized for this exam. CT DOSE: 328.26 mGy.cm Comparison: Comparison is made to CTA chest 02/19/2019 FINDINGS: Lungs and pleura: Atelectasis versus scarring is seen in the dependent portions of the lungs. Heart and pericardium: Heart size is normal. No pericardial effusion. Vessels: Nonocclusive pulmonary embolus is seen in the left lower lobe are artery with occlusion of a segmental branch. Nonocclusive segmental embolus is also seen in the right lower lobe and right upper lobe. No right heart strain is seen. Mediastinum and day: Unremarkable. Chest wall and lower neck: Unremarkable. Abdomen: Unremarkable. Bones: Degenerative changes in the thoracic spine. IMPRESSION: Segmental pulmonary emboli are seen without evidence of right heart strain. ACT 112: Negative or not required by law. Electronically signed by: yAo Simon M.D. 09/24/2021 4:06 PM Code Status & VTE Plan VTE Prophylaxis Plan VTE Prophylaxis will be ordered: Yes
[2021-09-24 17:09] LABS: Partial Thromboplastin Time 27.3 Seconds (21.0-31.0); Prothrombin Time 10.6 Seconds (9.0-12.0)
[2021-09-24] MEDS: HEPARIN SODIUM/DEXTROSE 25,000 UNITS/500 ML BAG IV SCH (17:39)
--- NOTE | 2021-09-24 17:41 | Ultrasound Report ---
BILATERAL LOWER EXTREMITY VENOUS DOPPLER HISTORY: Pulmonary emboli. Assess for DVT. COMPARISON STUDY: None. FINDINGS: Occlusive thrombus seen within the right superficial femoral, popliteal, and calf veins. Th ere is also occlusive thrombus seen within the left popliteal and calf veins. The bilateral common fe moral veins are patent. IMPRESSION: Bilateral lower extremity DVT as described above. ACT 112: Negative or not required by law. Electronically signed by: Georges Toro M.D. 09/24/2021 5:39 PM
[2021-09-24] MEDS ORDERED: CLOTRIMAZOLE/BETAMETHASONE CR 15 GM TUBE EXT PRN (17:49)
[2021-09-24] MEDS ORDERED: LIDOCAINE VISCOUS 2% 15 ML UDC TOP PRN (17:49)
[2021-09-24] MEDS ORDERED: POLYETHYLENE (MIRALAX) 17 GM PACK PO PRN (17:49)
[2021-09-24] MEDS ORDERED: NITROGLYCERIN SL 0.4 MG/TAB TAB SL PRN (18:01)
[2021-09-24] MEDS ORDERED: LEVALBUTEROL TARTRATE 15 GM HFA.AER.AD INH PRN (18:01)
[2021-09-24] MEDS ORDERED: FUROSEMIDE 40 MG/4 ML VIAL IV ONE (18:06)
[2021-09-24] MEDS ORDERED: LEVALBUTEROL HCL 1.25 MG/3 ML NEB ONE (20:37)
[2021-09-24] MEDS ORDERED: LEVALBUTEROL 1.25MG/0.5ML NEB ONE (20:40)
[2021-09-24] MEDS: BUDESONIDE 0.5 MG/2 ML VIAL (PULMICORT) INH SCH (20:46)
[2021-09-24] MEDS ORDERED: LEVALBUTEROL HCL 1.25 MG/3 ML NEB INH SCH (21:00)
[2021-09-24] MEDS: FAMOTIDINE 20 MG TAB PO SCH (22:36)
--- NOTE | 2021-09-24 22:38 | Electrocardiogram Report ---
Test Reason : Blood Pressure : / mmHG Vent. Rate : 072 BPM Atrial Rate : 072 BPM P-R Int : 244 ms QRS Dur : 078 ms QT Int : 370 ms P-R-T Axes : 035 -32 027 degrees QTc Int : 405 ms Sinus rhythm with 1st degree A-V block with Premature atrial complexes Left axis deviation Septal infarct (cited on or before 02-SEP-2013) Inferior infarct , age undetermined Abnormal ECG When compared with ECG of 19-MAY-2021 12:42, Premature atrial complexes are now Present Questionable change in initial forces of Anteroseptal leads Confirmed by Casey Nunes ([id number]) on 09/24/2021 10:38:04 PM Referred By: Confirmed By:Casey Nunes
[2021-09-24] MEDS: FEXOFENADINE HCL 180 MG TAB PO SCH (22:40)
[2021-09-24] MEDS: ATORVASTATIN 40 MG TAB PO SCH (22:40)
[2021-09-24] MEDS: ISOSORBIDE MONO EXTENDED REL 60 MG TABCR PO SCH (22:41)
[2021-09-24] MEDS: carvediloL 12.5 MG TAB PO SCH ×2 (22:41→23:46)
[2021-09-24] MEDS: MONTELUKAST SODIUM 10 MG TABLET PO SCH (22:42)
[2021-09-24] MEDS: LOSARTAN POTASSIUM 50 MG TAB PO SCH (22:42)
[2021-09-24] MEDS: ACETAMINOPHEN 500 MG TAB PO SCH (22:43)
[2021-09-24] MEDS: DOCUSATE SODIUM 100 MG CAP PO SCH (22:44)
[2021-09-24] MEDS: SODIUM CHLORIDE 0.65% NA SOLN 45 ML (OCEAN) SCH ×2 (22:45→23:25)
[2021-09-24] MEDS: AZELASTINE HCL 0.1% NASAL 200 SPRAYS/27,400 MCG BTL NS SCH ×2 (22:46→23:25)
[2021-09-24] MEDS: TRIAMCINOLONE ACET NASAL SPRAY 10.8ML BTL SCH ×2 (22:46→23:25)
[2021-09-25 00:24] LABS: Partial Thromboplastin Ratio 1.8
[2021-09-25 00:28] LABS: Partial Thromboplastin Time 49.8 Seconds (21.0-31.0)
[2021-09-25] MEDS: LEVOTHYROXINE SODIUM 75 MCG TABLET PO SCH (06:34)
[2021-09-25 07:27] LABS: D Dimer 5710 ug/L FEU (0-500)
[2021-09-25 08:08] LABS: Basophils # (auto) 0.04 K/uL (0-0.2); Basophils % (auto) 0.4 %; Eosinophils # (auto) 0.31 K/uL (0-0.5); Eosinophils % (auto) 3.3 %; Hemoglobin 10.3 g/dL (12.0-16.0); Immature Granulocytes # (auto) 0.05 K/uL (0.00-0.02); Immature Granulocytes % (auto) 0.5 %; Mean Corpuscular Hemoglobin 29.9 pg (25-34); Mean Corpuscular Hgb Conc 31.2 g/dL (32-36); Mean Corpuscular Volume 95.7 fL (80-100); Mean Platelet Volume 11.1 fL (7.4-10.4); Monocytes # (auto) 1.51 K/uL (0.11-0.59); Monocytes % (auto) 15.9 %; Neutrophils % (auto) 58.9 %; Platelet Count 186 K/uL (130-400); RDW Coefficient of Variation 15.6 % (11.5-14.5); RDW Standard Deviation 53.9 fL (36.4-46.3); Red Blood Count 3.45 M/uL (4.2-5.4); White Blood Count 9.51 K/uL (4.8-10.8)
[2021-09-25 08:09] LABS: BUN Creatinine Ratio 20.3 (10-20); Calcium 8.7 mg/dl (8.5-10.1); Creatinine Clr Calc Pharmacy 13.8 ml/min; Est GFR (African American) 20.9 ml/min; Potassium 3.8 mmol/L (3.5-5.1)
[2021-09-25] MEDS: BUDESONIDE 0.5 MG/2 ML VIAL (PULMICORT) INH SCH ×2 (08:12→19:34)
[2021-09-25] MEDS: LEVALBUTEROL HCL 1.25 MG/3 ML NEB INH SCH ×3 (08:12→19:34)
[2021-09-25 08:20] LABS: Partial Thromboplastin Ratio 2.5
[2021-09-25 08:37] LABS: Partial Thromboplastin Time 69.6 Seconds (21.0-31.0)
[2021-09-25] MEDS ORDERED: SODIUM CHLORIDE 0.9% 1000ML 1,000 ML IV SCH (08:45)
[2021-09-25] MEDS ORDERED: SPIRONOLACTONE 12.5 MG TAB PO SCH (09:00)
[2021-09-25] MEDS ORDERED: FUROSEMIDE 20 MG TAB PO SCH (09:00)
[2021-09-25] MEDS: NYSTATIN SUSP 500,000 U/5 ML UDC PO SCH ×2 (09:44→21:05)
[2021-09-25] MEDS: ACETAMINOPHEN 500 MG TAB PO SCH ×3 (09:47→21:05)
[2021-09-25] MEDS: allopurinoL 100 MG TAB PO SCH (09:48)
[2021-09-25] MEDS: AZELASTINE HCL 0.1% NASAL 200 SPRAYS/27,400 MCG BTL NS SCH ×2 (09:49→21:37)
[2021-09-25] MEDS: carvediloL 12.5 MG TAB PO SCH ×2 (09:49→17:49)
[2021-09-25] MEDS: DOCUSATE SODIUM 100 MG CAP PO SCH ×2 (09:50→21:06)
[2021-09-25] MEDS: ESCITALOPRAM OXALATE 10 MG TAB PO SCH (09:50)
[2021-09-25] MEDS: FAMOTIDINE 20 MG TAB PO SCH ×2 (09:51→21:08)
[2021-09-25] MEDS: guaiFENesin 600 MG TABCR PO SCH (09:51)
[2021-09-25] MEDS: MAGNESIUM OXIDE 400 MG TAB PO SCH (09:53)
[2021-09-25] MEDS: PANTOprazole 40 MG TAB PO SCH ×2 (09:54→17:29)
[2021-09-25] MEDS: SODIUM CHLORIDE 0.65% NA SOLN 45 ML (OCEAN) SCH ×2 (09:54→21:37)
[2021-09-25] MEDS: POTASSIUM CHLORIDE 10 MEQ TABCR PO SCH ×2 (09:54→16:12)
[2021-09-25] MEDS: TRIAMCINOLONE ACET NASAL SPRAY 10.8ML BTL SCH ×2 (09:55→21:37)
--- NOTE | 2021-09-25 09:57 | Cardiology Consultation ---
Date of Consultation September 25, 2021 Assessment & Plan (1) DVT, bilateral lower limbs: (2) Bilateral pulmonary embolism: (3) Chronic diastolic (congestive) heart failure: (4) CAD (coronary artery disease): (5) GI bleed: (6) Transient ischemic attack: (7) History of breast cancer: (8) PAF (paroxysmal atrial fibrillation): 2D echocardiogram reviewed without sign of significant RV strain. Preserved LV systolic function as well. Will defer management of pulmonary emboli and DVT to primary team. She does have a history of GI bleed while on Coumadin and she will be watched closely for any signs of bleeding while on heparin. No further cardiac testing or intervention necessary at this time. History of Present Illness Reason for Consultation: SOB Requesting Physician: Dr. Lozano Attending Physician: Magi Pruett MD History of Present Illness Mrs. Moran is a very pleasant 89 yo woman who presented to [facility] emergency department on 09/25/2021 with complaints of leg pain, abdominal discomfort, shortness of breath and palpitations. She notes that this has been progressively worsening over the last several days. Upon arrival she was found to have bilateral segmental pulmonary emboli along with lower extremity DVT. Patient's daughter requested that cardiology be consulted. Cardiac Problem List: 1. Long-standing labile hypertension with hypertensive heart disease and brittle diastolic congestive heart failure. 2. Past paroxysmal atrial fibrillation. 3. Anticoagulation risks for felt to be greater than the benefit 4. Hospitalization in May 2021 with diarrhea, black stools, probable upper GI bleeding. Hemoglobin as low as 7.8 grams/deciliter. Anticoagulation discontinued. Endoscopy not performed per request. 5. Mild nonobstructive coronary atherosclerosis by cardiac catheterization 2011. 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 sulfamethoxazole Allergy Mild RASH Verified 09/24/21 15:27 trimethoprim Allergy Mild RASH Verified 09/24/21 15:27 amlodipine Allergy legs swell Verified 09/24/21 15:27 severe azithromycin Allergy Unknown Verified 09/24/21 15:27 cefuroxime [From Ceftin] Allergy Diarrhea Verified 09/24/21 15:27 ipratropium Allergy Anaphylaxis Verified 09/24/21 15:27 Sulfa (Sulfonamide Allergy Difficulty Verified 09/24/21 15:27 Antibiotics) Breathing Home Medications Medication Instructions Recorded Confirmed Type allopurinol 100 mg tablet 200 mg PO QAM 02/19/19 09/24/21 History atorvastatin 40 mg tablet 40 mg PO PM 02/19/19 09/24/21 History azelastine 137 mcg (0.1 %) nasal 1 spray INTRANASAL BID 02/19/19 09/24/21 History spray aerosol budesonide 0.5 mg/2 mL suspension 0.5 mg INHALATION BID 02/19/19 09/24/21 History for nebulization calcium carbonate 600 mg calcium 600 mg PO PM 02/19/19 09/24/21 History (1,500 mg) tablet carvedilol 25 mg tablet (Coreg) 12.5 mg PO BID 02/19/19 09/24/21 History cholecalciferol (vitamin D3) 25 2,000 unit PO 3XWK 02/19/19 09/24/21 History mcg (1,000 unit) capsule (Vitamin D3) escitalopram oxalate 10 mg tablet 5 mg PO QAM 02/19/19 09/24/21 History (Lexapro) fexofenadine 180 mg tablet 180 mg PO QAM 02/19/19 09/24/21 History levalbuterol HCl 1.25 mg/3 mL 1.25 mg INHALATION DIRECTED 02/19/19 09/24/21 History solution for nebulization (Xopenex) levothyroxine 150 mcg capsule 150 mcg PO 4XWK 02/19/19 09/24/21 History losartan 50 mg tablet 50 mg PO HS 02/19/19 09/24/21 History montelukast 10 mg tablet 10 mg PO PM 02/19/19 09/24/21 History nitroglycerin 0.4 mg sublingual 0.4 mg BUCCAL .UD PRN 02/19/19 09/24/21 History tablet (Nitrostat) nystatin 100,000 unit/mL oral 5 ml PO BID 02/19/19 09/24/21 History suspension pantoprazole 40 mg tablet,delayed 40 mg PO BID 02/19/19 09/24/21 History release (Protonix) sodium chloride 0.65 % nasal spray 2 spray INTRANASAL QID PRN 02/19/19 09/24/21 History aerosol (Saline Nasal) spironolactone 25 mg tablet 12.5 mg PO QAM 02/19/19 09/24/21 History tamoxifen 20 mg tablet 20 mg PO QAM 02/19/19 09/24/21 History triamcinolone acetonide 55 mcg 1 spray INTRANASAL BID 02/19/19 09/24/21 History nasal spray aerosol (Nasacort) isosorbide mononitrate 60 mg 60 mg PO HS 11/15/20 09/24/21 History tablet,extended release 24 hr levalbuterol tartrate 45 1 puff INHALATION Q4H PRN 11/15/20 09/24/21 History mcg/actuation aerosol inhaler acetaminophen 500 mg tablet 500 mg PO TID 05/19/21 09/24/21 History furosemide 40 mg tablet 40 mg PO QAM 05/19/21 09/24/21 History levothyroxine 150 mcg tablet 225 mcg PO .3XW 05/19/21 09/24/21 History magnesium oxide 400 mg (241.3 mg 400 mg PO QAM 05/19/21 09/24/21 History magnesium) tablet potassium chloride 10 mEq 10 meq PO QAM 05/19/21 09/24/21 History tablet,extended release prednisone 10 mg tablet 10 mg PO QAM 05/19/21 09/24/21 History sucralfate 100 mg/mL oral 10 ml PO TID 05/19/21 09/24/21 History suspension famotidine 20 mg tablet 20 mg PO BID 05/28/21 09/24/21 History amoxicillin 500 mg capsule 500 mg PO BID 09/24/21 09/24/21 History benzonatate 100 mg capsule 100 mg PO TID PRN 09/24/21 09/24/21 History calcitriol 0.25 mcg capsule 0.25 mcg PO 3XWK 09/24/21 09/24/21 History clotrimazole-betamethasone 1 1 applic TOPICAL BID PRN 09/24/21 09/24/21 History %-0.05 % topical cream docusate sodium 50 mg capsule 50 mg PO BID 09/24/21 09/24/21 History guaifenesin 600 mg tablet, 600 mg PO DAILY 09/24/21 09/24/21 History extended release 12 hr (Mucinex) hydralazine 10 mg tablet 10 mg PO DAILY PRN 09/24/21 09/24/21 History iron,carbonyl 65 mg-vitamin C 125 1 tab PO QAM 09/24/21 09/24/21 History mg tablet,delayed release (Vitron-C) lidocaine HCl 2 % mucosal solution 1 applic TOPICAL DAILY PRN 09/24/21 09/24/21 History polyethylene glycol 3350 17 gram 255 g PO DAILY 09/24/21 09/24/21 History oral powder packet (Miralax) sucralfate 1 gram tablet (Carafate) 1 g PO TID 09/24/21 09/24/21 History tramadol 50 mg tablet 50 mg PO Q6H PRN 09/24/21 09/24/21 History triamcinolone acetonide 40 mg/mL 40 mg IM DAILY 09/24/21 09/24/21 History suspension for injection Patient History Medical History Anemia recent hospitalization at [facility] 2 weeks ago Anticoagulated on Coumadin Anxiety Asthma, moderate persistent not well controlled, frequent nebulizer use Chronic diastolic CHF (congestive heart failure) follows with Dr. Benjamin CKD (chronic kidney disease), stage III follows with Dr. Hernandez COPD (chronic obstructive pulmonary disease) not well controlled Dyslipidemia GERD (gastroesophageal reflux disease) GI bleed recent hospitalization at [facility] > 1 unit blood Gout Hard of hearing bilat aides Heart disease "nonobstructive disease per cath 2011" Hiatal hernia History of breast cancer x2 > > no chemo just tamxifen for correction use, no surgeries Hypothyroidism (acquired) "s/p thyroidectomy and radioiodine therapy for cancer treatment" Hysterectomy (02/22/13) IBS (irritable bowel syndrome) Labile hypertension Osteoporosis (02/22/13) PAF (paroxysmal atrial fibrillation) hx of 10 yrs ago > no longer on ASA or Coumadin as of 2 weeks ago 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 Father , Passed age 50 of [place] No problems noted. Brother Lung fibrosis Brother , Passed age 63 of allergic reaction to antibiotics No problems noted. Sister , Passed age 83 of "electrolyte disturbances" DCIS (ductal carcinoma in situ) Sister , Passed age 84 from post surgical complications No problems noted. Sister No problems noted. Daughter No problems noted. Daughter No problems noted. Son No problems noted. 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 No acute distress. HEENT: Normocephalic, atraumatic. Pupils equal, round and reactive to light and accommodation. Extraocular muscles are intact. Anicteric sclera. Moist mucous membranes. Neck: No JVD. No bruit. Cardiovascular: Regular. Positive S-4. Normal S-1 and S-2. No S-3. 3/6 mid to late systolic ejection murmur, greatest at the right sternal border, second intercostal space with radiation to the bilateral carotids. No rubs. Pulmonary: Clear to auscultation bilaterally. No rales, rhonchi, or wheezing. Abdomen: Bowel sounds x 4, soft. No rebound, guarding or tenderness. No organomegaly. Extremities: No clubbing, cyanosis or edema. +2 pedal pulses bilaterally. Skin: Warm and dry. Results & Data ([facility]) Vital Signs (Past 12 Hours) Vital Signs Temp Pulse Resp BP BP Pulse Ox 09/25/21 08:13 77 16 98 09/25/21 08:02 36.7 C 67 18 133/53 L 98 09/25/21 04:30 36.9 C 71 22 127/61 96 09/24/21 23:46 36.9 C 75 20 165/88 H 98
[2021-09-25] MEDS: SUCRALFATE 1 GM/10 ML UDC PO SCH ×3 (10:53→21:08)
--- NOTE | 2021-09-25 12:42 | Hospitalist Progress Note ---
Date of Service September 25, 2021 Assessment & Plan (1) Bilateral pulmonary embolism: Plan: Bilateral segmental PE with bilateral DVT LE, no heart strain- on tamoxifen for breast cancer which could be the culprit. 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 F/u with onc - 1st episode, hemodynamically stable, hypoxia stable on home oxygen - CTA chest-Segmental pulmonary emboli are seen without evidence of right heart strain. -US LE -bilateral DVTs - Start on heparin drip to see how she would tolerate given UGI bleed on coumadin back in May. If tolerates, can change to DOAC or coumadin. If does not tolerate, will need IVC filter. - Hold tamoxifen, follow up with oncology for further discussion -Remains stable and denies any acute chest pain and/or more shortness of breath -Echo of the heart showed-no significant change compared to previous study of 04/01/2020, normal LV size and wall thickness with EF 60 to 65%, no segmental wall motion abnormalities, grade 3 diastolic dysfunction consistent with restrictive physiology, RV size is normal, aortic sclerosis without stenosis -Appreciate cardiology input and recommended -PT/OT evaluation Chronic hypoxic respiratory failure Moderate persistent asthma- not in acute exacerbation, continue home inhalers/nebs along with nystatin to prevent thrush Chronic hypoxic respiratory failure- on NC at 2 L at home, continue. (2) DVT, bilateral lower limbs: Plan: As above Could be secondary to use of tamoxifen and being sedentary lifestyle (3) Chronic diastolic (congestive) heart failure: Plan: Chronic diastolic CHF- looks compensated but she was given IVF in ED for dye load because of her CKD. Will give a dose of iv lasix tonight and continue home lasix 60 bid from tomorrow morning (takes at 9 am and 1 pm at home). continue daily weight, strict I and Os, check echo. Follows with cardio as OP. Will consult cardio as per daughter's request. 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 Continue synthroid at home dose. (6) GERD (gastroesophageal reflux disease): (7) CARLO (acute kidney injury): Plan: CARLO on CKD4- baseline Cr seems to be 1.2-1.6, currently elevated to 2.01. Also received contrast today. monitor Cr. Avoid nephrotoxics Creatinine is worsened today Received IV Lasix 60 mg on admission Clinically looks dry Will give cautious amount of intravenous fluid and hold Lasix for now Monitor kidney function DVT prophylaxis PAF- currently in sinus rhythm. Previously in coumadin taken off May 2021. Now back on anticoag with PE Plan: HTN- continue home meds with hold parameters Dispo- PCU on tele Full code per daughter Updated daughter at bedside and answered all her questions Admission and Anticipated Discharge Date Admission Date: September 24, 2021 Subjective 09/25/2021 The patient was seen and examined in telemetry unit She is 89-year-old being sedentary at home and on tamoxifen for history of breast cancer Has been complaining of leg swelling and pain with ambulation associated with shortness of breath for some time She was noted to have DVTs and pulmonary embolism Has been stable and getting a little better since admission Review of Systems Review of Systems: All systems reviewed and are unremarkable except as noted below Respiratory: Minimal shortness of breath at rest Cardiovascular: Additional Comments: No chest pain and/or palpitation Physical Exam Physical Exam: Sitting on a chair with minimal discomfort due to shortness of breath Constitutional: well developed, well nourished, + ill appearing and + obese Eyes: PERRL, conjunctivae normal, anicteric sclerae ENMT: external ear and nose normal, oropharynx normal Neck: trachea midline, no thyromegaly Respiratory: no respiratory distress Auscultation: + diminished lung sounds and + crackles (Minimal bibasilar crackles) Cardiovascular: Rate/Rhythm: regular rate and regular rhythm; not tachycardic Heart Sounds: normal S1 and normal S2; no murmur Extremities: + edema (1+ edema bilaterally) Gastrointestinal (Abdomen): Inspection/Auscultation: + abdomen distended; + abnormal bowel sounds Percussion/Palpation: abdomen soft; abdomen nontender Musculoskeletal: No acute arthritis in any joint Neurologic: Alert, awake and oriented x3. Generally weak but no focal sensory and motor deficit appreciated Psychiatric: A+Ox3, euthymic affect Lymphatic: no cervical or axillary lymphadenopathy Results & Data Results & Data ([facility]) Vital Signs (Past 12 Hours) Vital Signs Temp Pulse Resp BP Pulse Ox 09/25/21 12:22 79 16 97 09/25/21 11:34 36.7 C 69 16 115/52 L 98 09/25/21 08:13 77 16 98 09/25/21 08:02 36.7 C 67 18 133/53 L 98 09/25/21 04:30 36.9 C 71 22 127/61 96 Laboratory Results Short CBC 09/25/21 Range/Units 07:05 WBC 9.51 (4.8-10.8) K/uL Hgb 10.3 L (12.0-16.0) g/dL Hct 33.0 L (37-47) % Plt Count 186 (130-400) K/uL BMP 09/25/21 07:05 Sodium 135 L Potassium 3.8 Chloride 99 Carbon Dioxide 28 BUN 47 H Creatinine 2.32 H D Glucose 94 Calcium 8.7 Medications Administered Current Inpatient Medications Acetaminophen (Acetaminophen 500 Mg Tab) 500 mg PO 0900,1800,2100 [facility] Stop: 10/24/21 20:59 Last Admin: 09/25/21 09:47 Dose: 500 mg Documented by: Allopurinol (Allopurinol 100 Mg Tab) 200 mg PO QAM [facility]TAN Stop: 10/25/21 08:59 Last Admin: 09/25/21 09:48 Dose: 200 mg Documented by: Atorvastatin Calcium (Atorvastatin 40 Mg Tab) 40 mg PO QPM [facility] Stop: 10/24/21 20:59 Last Admin: 09/24/21 22:40 Dose: 40 mg Documented by: Azelastine HCl (Azelastine Hcl 0.1% Nasal 200 Sprays/27,400 Mcg Btl) 1 sprays NS BID [facility]TAN Stop: 10/24/21 21:29 Last Admin: 09/25/21 09:49 Dose: 1 sprays Documented by: Benzonatate (Benzonatate 100 Mg Capsule) 100 mg PO TID PRN PRN Reason: Cough Stop: 10/24/21 17:48 Betamethasone/Clotrimazole (Clotrimazole/Betamethasone Cr 15 Gm Tube) 1 appln EXT BID PRN PRN Reason: Unknown Stop: 10/24/21 17:48 Budesonide (Budesonide 0.5 Mg/2 Ml Vial (Pulmicort)) 0.5 mg INH BID [facility] Stop: 10/24/21 20:59 Last Admin: 09/25/21 08:12 Dose: 0.5 mg Documented by: Calcitriol (Calcitriol 0.25 Mcg Capsule) 0.25 mcg PO MoWeFr@0900 [facility] Stop: 10/27/21 08:59 Carvedilol (Carvedilol 12.5 Mg Tab) 12.5 mg PO Q12 [facility] Stop: 10/24/21 20:59 Last Admin: 09/25/21 09:49 Dose: 12.5 mg Documented by: Docusate Sodium (Docusate Sodium 100 Mg Cap) 100 mg PO BID [facility] Stop: 10/24/21 20:59 Last Admin: 09/25/21 09:50 Dose: 100 mg Documented by: Escitalopram Oxalate (Escitalopram Oxalate 10 Mg Tab) 5 mg PO QAM [facility] Stop: 10/25/21 08:59 Last Admin: 09/25/21 09:50 Dose: 5 mg Documented by: Famotidine (Famotidine 20 Mg Tab) 20 mg PO BID [facility] Stop: 10/24/21 20:59 Last Admin: 09/25/21 09:51 Dose: 20 mg Documented by: Fexofenadine HCl (Fexofenadine Hcl 180 Mg Tab) 180 mg PO QPM [facility] Stop: 10/24/21 20:59 Last Admin: 09/24/21 22:40 Dose: 180 mg Documented by: Furosemide (Furosemide 20 Mg Tab) 60 mg PO BID17 [facility] Stop: 10/25/21 08:59 Guaifenesin (Guaifenesin 600 Mg Tabcr) 600 mg PO DAILY [facility] Stop: 10/25/21 08:59 Last Admin: 09/25/21 09:51 Dose: 600 mg Documented by: Heparin Sodium/Dextrose (Heparin Sodium/Dextrose) 25,000 units in 500 mls @ 20 mls/hr IV .Q24H [facility]TAN; Protocol Stop: 10/24/21 16:44 Last Titration: 09/25/21 09:42 Dose: 950 units/hr, 19 mls/hr Documented by: Sodium Chloride (Nss 1000ml) 1,000 mls @ 125 mls/hr IV .Q8H [facility] Stop: 09/25/21 16:44 Last Admin: 09/25/21 10:48 Dose: 125 mls/hr Documented by: Isosorbide Mononitrate (Isosorbide [place] Extended Rel 60 Mg Tabcr) 60 mg PO HS [facility] Stop: 10/24/21 20:59 Last Admin: 09/24/21 22:41 Dose: 60 mg Documented by: Levalbuterol HCl (Levalbuterol Tartrate 15 Gm Hfa.Aer.Ad) 1 puffs INH Q4H PRN PRN Reason: Wheezing Stop: 10/24/21 18:00 Levalbuterol HCl (Levalbuterol Hcl 1.25 Mg/3 Ml Neb) 1.25 mg INH TIDR [facility]; Protocol Stop: 10/24/21 20:59 Last Admin: 09/25/21 12:22 Dose: 1.25 mg Documented by: Levothyroxine Sodium (Levothyroxine Sodium 75 Mcg Tablet) 225 mcg PO MoWeFrSa@0630 [facility] Stop: 10/25/21 06:29 Last Admin: 09/25/21 06:34 Dose: 225 mcg Documented by: Levothyroxine Sodium (Levothyroxine Sodium 150 Mcg Tablet) 150 mcg PO SuTuTh@0630 [facility] Stop: 10/26/21 06:29 Losartan Potassium (Losartan Potassium 50 Mg Tab) 50 mg PO [facility] Stop: 10/24/21 20:59 Last Admin: 09/24/21 22:42 Dose: 50 mg Documented by: Magnesium Oxide (Magnesium Oxide 400 Mg Tab) 400 mg PO QAM [facility] Stop: 10/25/21 08:59 Last Admin: 09/25/21 09:53 Dose: 400 mg Documented by: Montelukast Sodium (Montelukast Sodium 10 Mg Tablet) 10 mg PO PM [facility] Stop: 10/24/21 20:59 Last Admin: 09/24/21 22:42 Dose: 10 mg Documented by: Nitroglycerin (Nitroglycerin Sl 0.4 Mg/Tab Tab) 0.4 mg SL PRN PRN PRN Reason: Chest Pain Stop: 10/24/21 18:00 Nystatin (Nystatin Susp 500,000 U/5 Ml Udc) 5 ml PO BID@0700,1900 [facility] Stop: 10/25/21 06:59 Last Admin: 09/25/21 09:44 Dose: 5 ml Documented by: Pantoprazole Sodium (Pantoprazole 40 Mg Tab) 40 mg PO BID@0900,1800 [facility] Stop: 10/25/21 08:59 Last Admin: 09/25/21 09:54 Dose: 40 mg Documented by: Polyethylene Glycol (Polyethylene (Miralax) 17 Gm Pack) 255 gm PO DAILY PRN PRN Reason: constipation Stop: 10/25/21 08:59 Potassium Chloride (Potassium Chloride 10 Meq Tabcr) 10 meq PO BID17 [facility] Stop: 10/25/21 08:59 Last Admin: 09/25/21 09:54 Dose: 10 meq Documented by: Sodium Chloride (Sodium Chloride 0.65% Na Soln 45 Ml ([place])) 2 sprays NA BID [facility] Stop: 10/24/21 21:29 Last Admin: 09/25/21 09:54 Dose: 2 sprays Documented by: Spironolactone (Spironolactone 12.5 Mg Tab) 12.5 mg PO QAM [facility] Stop: 10/25/21 08:59 Last Admin: 09/25/21 09:55 Dose: 12.5 mg Documented by: Sucralfate (Sucralfate 1 Gm/10 Ml Udc) 1 gm PO TID@1100,1800,2100 [facility] Stop: 10/25/21 10:59 Last Admin: 09/25/21 10:53 Dose: 1 gm Documented by: Triamcinolone Acetonide (Triamcinolone Acet Nasal [place] 10.8ml Btl) 1 sprays NA BID [facility] Stop: 10/24/21 21:29 Last Admin: 09/25/21 09:55 Dose: 1 sprays Documented by:
[2021-09-25 17:58] LABS: Partial Thromboplastin Ratio 2.2
[2021-09-25 18:08] LABS: Partial Thromboplastin Time 61.2 Seconds (21.0-31.0)
[2021-09-25] MEDS: HEPARIN SODIUM/DEXTROSE 25,000 UNITS/500 ML BAG IV SCH (19:08)
[2021-09-25] MEDS: ATORVASTATIN 40 MG TAB PO SCH (21:05)
[2021-09-25] MEDS: ISOSORBIDE MONO EXTENDED REL 60 MG TABCR PO SCH (21:06)
[2021-09-25] MEDS: FEXOFENADINE HCL 180 MG TAB PO SCH (21:06)
[2021-09-25] MEDS: MONTELUKAST SODIUM 10 MG TABLET PO SCH (21:07)
[2021-09-25] MEDS: LOSARTAN POTASSIUM 50 MG TAB PO SCH (21:07)
[2021-09-26 04:41] LABS: Basophils # (auto) 0.03 K/uL (0-0.2); Basophils % (auto) 0.3 %; Eosinophils # (auto) 0.47 K/uL (0-0.5); Eosinophils % (auto) 5.1 %; Hematocrit (blood only) 32.1 % (37-47); Hemoglobin 10.2 g/dL (12.0-16.0); Immature Granulocytes # (auto) 0.04 K/uL (0.00-0.02); Immature Granulocytes % (auto) 0.4 %; Lymphocytes # (auto) 2.76 K/uL (1.2-3.4); Lymphocytes % (auto) 30.2 %; Mean Corpuscular Hemoglobin 30.2 pg (25-34); Mean Corpuscular Hgb Conc 31.8 g/dL (32-36); Mean Platelet Volume 10.5 fL (7.4-10.4); Monocytes # (auto) 1.15 K/uL (0.11-0.59); Monocytes % (auto) 12.6 %; Neutrophils # (auto) 4.69 K/uL (1.4-6.5); Neutrophils % (auto) 51.4 %; Platelet Count 197 K/uL (130-400); RDW Coefficient of Variation 15.3 % (11.5-14.5); RDW Standard Deviation 52.8 fL (36.4-46.3); Red Blood Count 3.38 M/uL (4.2-5.4); White Blood Count 9.14 K/uL (4.8-10.8)
[2021-09-26 05:03] LABS: BUN Creatinine Ratio 15.6 (10-20); Calcium 8.6 mg/dl (8.5-10.1); Creatinine Clr Calc Pharmacy 8.5 ml/min; Est GFR (African American) 11.4 ml/min; Est GFR (Non-African American) 9.8 ml/min; Potassium 4.8 mmol/L (3.5-5.1)
[2021-09-26 05:07] LABS: Partial Thromboplastin Ratio 3.7
[2021-09-26 05:08] LABS: Partial Thromboplastin Time 100.4 Seconds (21.0-31.0)
[2021-09-26] MEDS: LEVALBUTEROL HCL 1.25 MG/3 ML NEB INH SCH ×3 (07:30→19:45)
[2021-09-26] MEDS: BUDESONIDE 0.5 MG/2 ML VIAL (PULMICORT) INH SCH ×2 (07:30→19:43)
[2021-09-26] MEDS: LEVOTHYROXINE SODIUM 150 MCG TABLET PO SCH (07:57)
[2021-09-26] MEDS ORDERED: SODIUM CHLORIDE 0.9% 1000ML 1,000 ML IV SCH (08:45)
[2021-09-26] MEDS: NYSTATIN SUSP 500,000 U/5 ML UDC PO SCH ×2 (08:55→19:57)
[2021-09-26] MEDS: ACETAMINOPHEN 500 MG TAB PO SCH ×3 (08:57→20:04)
[2021-09-26] MEDS: allopurinoL 100 MG TAB PO SCH (08:58)
[2021-09-26] MEDS: carvediloL 12.5 MG TAB PO SCH ×2 (08:59→17:55)
[2021-09-26] MEDS: AZELASTINE HCL 0.1% NASAL 200 SPRAYS/27,400 MCG BTL NS SCH ×2 (08:59→20:04)
[2021-09-26] MEDS: DOCUSATE SODIUM 100 MG CAP PO SCH ×2 (09:00→20:03)
[2021-09-26] MEDS: ESCITALOPRAM OXALATE 10 MG TAB PO SCH (09:01)
[2021-09-26] MEDS: guaiFENesin 600 MG TABCR PO SCH (09:04)
[2021-09-26] MEDS: MAGNESIUM OXIDE 400 MG TAB PO SCH (09:04)
[2021-09-26] MEDS: PANTOprazole 40 MG TAB PO SCH ×2 (09:05→17:51)
[2021-09-26] MEDS: POTASSIUM CHLORIDE 10 MEQ TABCR PO SCH ×2 (09:05→17:48)
[2021-09-26] MEDS: TRIAMCINOLONE ACET NASAL SPRAY 10.8ML BTL SCH ×2 (09:06→20:04)
[2021-09-26] MEDS: SODIUM CHLORIDE 0.65% NA SOLN 45 ML (OCEAN) SCH ×2 (09:06→20:04)
[2021-09-26] MEDS ORDERED: FUROSEMIDE 40 MG/4 ML VIAL IV ONE (09:45)
[2021-09-26] MEDS: FAMOTIDINE 20 MG TAB PO SCH ×2 (10:35→20:04)
--- NOTE | 2021-09-26 10:54 | Ultrasound Report ---
RENAL ULTRASOUND HISTORY: Worsening renal function. COMPARISON: Abdomen and pelvis CT 09/24/2021. FINDINGS: Right kidney: 8.6 cm. No hydronephrosis. Mild cortical thinning with increased cortical echogenicity. Left kidney: 8.4 cm. A 1.2 cm parapelvic cyst, unchanged. No hydronephrosis. Mild cortical thinning w ith increased cortical echogenicity. Bladder: Decompressed and therefore not visualized. IMPRESSION: 1. No hydronephrosis. 2. Increased cortical echogenicity bilaterally consistent with medical renal disease. ACT 112: Negative or not required by law. Electronically signed by: Georges Toro M.D. 09/26/2021 10:52 AM
--- NOTE | 2021-09-26 11:46 | Nephrology Consultation ---
Date of Consultation September 26, 2021 Assessment & Plan (1) CARLO (acute kidney injury): Amrit KELLOGG Ischemic ATN Her weight has increased , UOP has come dowm and she is in mild respiratory distress- she has signs of fluid overload. - Stop all IV fluids , start on 40 mg IV lasix BId - d/c losartan and all other nephrotoxics, - Daily BMP,input and output. - no more contrast study for now. - She does not dialysis today but may need it this admission. - conservative management for now. Care co-ordinated giacomo Angulo. (2) Bilateral pulmonary embolism: History of Present Illness Reason for Consultation: CARLO on CKD Attending Physician: Doug Angulo MD History of Present Illness 89 year old female with h/p PAF off of anticoag coumadin since 05/2021 due to UGI bleed, chronic diastolic CHF, moderate persistent asthma, hypertension, CKD4, h/o thyroid cancer, hypothyroidism, hyperparathyroidism who presented to the ED with leg pain, upper abd discomfort and palpitations for the past 2-3 days.She has baseline cr of 1.3 --1.4 and f/u with Dr Hernandez,She had 2 contrast study (CTPA) and CT abdo/ pelvis on 09/24. SCr which was 2.00 brian to 3.48 today,in the last 48 hr she had IV fluids and diuretics . She was on losartan which was stopped today. On review she was in mild respiratory distress, she has 2+ bilateral pedal edema and c/o low urine output, No cough, fever or dysuric symptoms. 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, layout man recommended not to take sulfamethoxazole Allergy Mild RASH Verified 09/24/21 15:27 trimethoprim Allergy Mild RASH Verified 09/24/21 15:27 amlodipine Allergy legs swell Verified 09/24/21 15:27 severe azithromycin Allergy Unknown Verified 09/24/21 15:27 cefuroxime [From Ceftin] Allergy Diarrhea Verified 09/24/21 15:27 ipratropium Allergy Anaphylaxis Verified 09/24/21 15:27 Sulfa (Sulfonamide Allergy Difficulty Verified 09/24/21 15:27 Antibiotics) Breathing Home Medications Medication Instructions Recorded Confirmed Type allopurinol 100 mg tablet 200 mg PO QAM 02/19/19 09/24/21 History atorvastatin 40 mg tablet 40 mg PO PM 02/19/19 09/24/21 History azelastine 137 mcg (0.1 %) nasal 1 spray INTRANASAL BID 02/19/19 09/24/21 History spray aerosol budesonide 0.5 mg/2 mL suspension 0.5 mg INHALATION BID 02/19/19 09/24/21 History for nebulization calcium carbonate 600 mg calcium 600 mg PO PM 02/19/19 09/24/21 History (1,500 mg) tablet carvedilol 25 mg tablet (Coreg) 12.5 mg PO BID 02/19/19 09/24/21 History cholecalciferol (vitamin D3) 25 2,000 unit PO 3XWK 02/19/19 09/24/21 History mcg (1,000 unit) capsule (Vitamin D3) escitalopram oxalate 10 mg tablet 5 mg PO QAM 02/19/19 09/24/21 History (Lexapro) fexofenadine 180 mg tablet 180 mg PO QAM 02/19/19 09/24/21 History levalbuterol HCl 1.25 mg/3 mL 1.25 mg INHALATION DIRECTED 02/19/19 09/24/21 History solution for nebulization (Xopenex) levothyroxine 150 mcg capsule 150 mcg PO 4XWK 02/19/19 09/24/21 History losartan 50 mg tablet 50 mg PO HS 02/19/19 09/24/21 History montelukast 10 mg tablet 10 mg PO PM 02/19/19 09/24/21 History nitroglycerin 0.4 mg sublingual 0.4 mg BUCCAL .UD PRN 02/19/19 09/24/21 History tablet (Nitrostat) nystatin 100,000 unit/mL oral 5 ml PO BID 02/19/19 09/24/21 History suspension pantoprazole 40 mg tablet,delayed 40 mg PO BID 02/19/19 09/24/21 History release (Protonix) sodium chloride 0.65 % nasal spray 2 spray INTRANASAL QID PRN 02/19/19 09/24/21 History aerosol (Saline Nasal) spironolactone 25 mg tablet 12.5 mg PO QAM 02/19/19 09/24/21 History tamoxifen 20 mg tablet 20 mg PO QAM 02/19/19 09/24/21 History triamcinolone acetonide 55 mcg 1 spray INTRANASAL BID 02/19/19 09/24/21 History nasal spray aerosol (Nasacort) isosorbide mononitrate 60 mg 60 mg PO HS 11/15/20 09/24/21 History tablet,extended release 24 hr levalbuterol tartrate 45 1 puff INHALATION Q4H PRN 11/15/20 09/24/21 History mcg/actuation aerosol inhaler acetaminophen 500 mg tablet 500 mg PO TID 05/19/21 09/24/21 History furosemide 40 mg tablet 40 mg PO QAM 05/19/21 09/24/21 History levothyroxine 150 mcg tablet 225 mcg PO .3XW 05/19/21 09/24/21 History magnesium oxide 400 mg (241.3 mg 400 mg PO QAM 05/19/21 09/24/21 History magnesium) tablet potassium chloride 10 mEq 10 meq PO QAM 05/19/21 09/24/21 History tablet,extended release prednisone 10 mg tablet 10 mg PO QAM 05/19/21 09/24/21 History sucralfate 100 mg/mL oral 10 ml PO TID 05/19/21 09/24/21 History suspension famotidine 20 mg tablet 20 mg PO BID 05/28/21 09/24/21 History amoxicillin 500 mg capsule 500 mg PO BID 09/24/21 09/24/21 History benzonatate 100 mg capsule 100 mg PO TID PRN 09/24/21 09/24/21 History calcitriol 0.25 mcg capsule 0.25 mcg PO 3XWK 09/24/21 09/24/21 History clotrimazole-betamethasone 1 1 applic TOPICAL BID PRN 09/24/21 09/24/21 History %-0.05 % topical cream docusate sodium 50 mg capsule 50 mg PO BID 09/24/21 09/24/21 History guaifenesin 600 mg tablet, 600 mg PO DAILY 09/24/21 09/24/21 History extended release 12 hr (Mucinex) hydralazine 10 mg tablet 10 mg PO DAILY PRN 09/24/21 09/24/21 History iron,carbonyl 65 mg-vitamin C 125 1 tab PO QAM 09/24/21 09/24/21 History mg tablet,delayed release (Vitron-C) lidocaine HCl 2 % mucosal solution 1 applic TOPICAL DAILY PRN 09/24/21 09/24/21 History polyethylene glycol 3350 17 gram 255 g PO DAILY 09/24/21 09/24/21 History oral powder packet (Miralax) sucralfate 1 gram tablet (Carafate) 1 g PO TID 09/24/21 09/24/21 History tramadol 50 mg tablet 50 mg PO Q6H PRN 09/24/21 09/24/21 History triamcinolone acetonide 40 mg/mL 40 mg IM DAILY 09/24/21 09/24/21 History suspension for injection Patient History Medical History Anemia recent hospitalization at [facility] 2 weeks ago Anticoagulated on Coumadin Anxiety Asthma, moderate persistent not well controlled, frequent nebulizer use Chronic diastolic CHF (congestive heart failure) follows with Dr. Benjamin CKD (chronic kidney disease), stage III follows with Dr. Hernandez COPD (chronic obstructive pulmonary disease) not well controlled Dyslipidemia GERD (gastroesophageal reflux disease) GI bleed recent hospitalization at [facility] > 1 unit blood Gout Hard of hearing bilat aides Heart disease "nonobstructive disease per cath 2011" Hiatal hernia History of breast cancer x2 > > no chemo just tamxifen for custodial use, no surgeries Hypothyroidism (acquired) "s/p thyroidectomy and radioiodine therapy for cancer treatment" Hysterectomy (02/22/13) IBS (irritable bowel syndrome) Labile hypertension Osteoporosis (02/22/13) PAF (paroxysmal atrial fibrillation) hx of 10 yrs ago > no longer on ASA or Coumadin as of 2 weeks ago 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 Father , Passed age 50 of [place] No problems noted. Brother Lung fibrosis Brother , Passed age 63 of allergic reaction to antibiotics No problems noted. Sister , Passed age 83 of "electrolyte disturbances" DCIS (ductal carcinoma in situ) Sister , Passed age 84 from post surgical complications No problems noted. Sister No problems noted. Daughter No problems noted. Daughter No problems noted. Son No problems noted. 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[employer] ([employer]) Other Information That Helps Us Care for You: No Feels Safe at Home: Yes Safety Concerns: Feels Safe At This Time caffeine: No during the past year weight has: remained stable Assistive Devices: Denture - Upper, Denture - Lower and Walker Review of Systems Review of Systems: All systems reviewed & are unremarkable except as noted in Subjective Physical Exam Physical Exam: General: awake, alert, in mild distress Head: Normocephalic, atraumatic ENT: PERRL, EOMI, no pharyngeal exudate, mucous membranes moist Chest: on room air, diminished breath sounds at bases Cardiac:, no murmur, no JVD, normal peripheral pulses, good capillary refill Abdominal: NABS x 4 quadrants, soft, nondistended, nontender to palpation, no rebound or guarding Extremities: + 2 pitting peripheral edema bilaterally Psych: Normal mood and affect Neuro: AAO x 3, strength intact bilaterally and rated 5/5, no motor deficits, speech is clear, no peripheral sensory deficits Results & Data ([facility]) Vital Signs (Past 12 Hours) Vital Signs Temp Pulse Resp BP Pulse Ox 09/26/21 11:39 36.7 C 74 19 162/88 H 100 09/26/21 07:39 36.7 C 76 18 145/77 H 97 09/26/21 07:31 72 16 95 09/26/21 03:37 36.6 C 67 20 146/72 H 96 09/26/21 00:37 36.8 C 70 18 136/71 98 Laboratory Results 09/26/21 04:21 09/26/21 04:21
[2021-09-26] MEDS: SUCRALFATE 1 GM/10 ML UDC PO SCH ×3 (12:27→20:05)
[2021-09-26 12:47] LABS: Partial Thromboplastin Ratio 2.4
[2021-09-26 13:04] LABS: Partial Thromboplastin Time 64.8 Seconds (21.0-31.0)
--- NOTE | 2021-09-26 16:17 | Hospitalist Progress Note ---
Date of Service September 26, 2021 Assessment & Plan (1) Bilateral pulmonary embolism: (2) CARLO (acute kidney injury): Plan: CARLO on CKD4- baseline Cr seems to be 1.2-1.6, currently elevated to 3.84 today Mostly related to contrast induced nephropathy Renal u/s showed no hydronephrosis. Increased cortical echogenicity bilaterally consistent with medical renal disease. Nephrology on board recommended to discontinue IVF due to increase in weight Losartan and Spironolactone on hold Continue monitor renal function closely (3) DVT, bilateral lower limbs: Plan: Bilateral segmental PE with bilateral DVT LE, no heart strain- on tamoxifen for breast cancer which could be the culprit. 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 F/u with onc - 1st episode, hemodynamically stable, hypoxia stable on home oxygen - CTA chest-Segmental pulmonary emboli are seen without evidence of right heart strain. -US LE -bilateral DVTs - Start on heparin drip to see how she would tolerate given UGI bleed on coumadin back in May. If tolerates, can change to DOAC or coumadin. If does not tolerate, will need IVC filter. - Hold tamoxifen, follow up with oncology for further discussion -Remains stable and denies any acute chest pain and/or more shortness of breath -Echo of the heart showed-no significant change compared to previous study of 04/01/2020, normal LV size and wall thickness with EF 60 to 65%, no segmental wall motion abnormalities, grade 3 diastolic dysfunction consistent with restrictive physiology, RV size is normal, aortic sclerosis without stenosis -Appreciate cardiology input and recommended -PT/OT evaluation - Continue IV Heparin drip for now. Not sure if pt will be a candidate for the DOAC due to Acute renal failure, if not olvin consider to resume coumadin Chronic hypoxic respiratory failure Moderate persistent asthma- not in acute exacerbation, continue home inhalers/nebs along with nystatin to prevent thrush Chronic hypoxic respiratory failure- on NC at 2 L at home, continue. Stable (4) Chronic diastolic (congestive) heart failure: Plan: Chronic diastolic CHF- looks compensated but she was given IVF in ED for dye load because of her CKD. Will give a dose of iv lasix tonight and continue home lasix 60 bid from tomorrow morning (takes at 9 am and 1 pm at home). continue daily weight, strict I and Os, check echo. Follows with cardio as OP. Will consult cardio as per daughter's request. Likely secondary to diastolic dysfunction Increased weight by 3 Kg case discussed with Nephrology that recommended lasix 40mg IV BID First dose given this morning, will reassess for the additional lasix IV 40mg later Will monitor I/O (5) PAF (paroxysmal atrial fibrillation): Plan: Rate is controlled Already on IV heparin drip for the PE/DVT (6) Hypothyroidism (acquired): Plan: Continue with supplement H/o follicular thyroid cancer s/p thyroidectomy with postsurgical hypothy roidism- TSH elevated but T4 normal-dose being adjusted by endo as OP- F/u as OP for further management. Continue synthroid at home dose. (7) GERD (gastroesophageal reflux disease): Plan: HTN- continue home meds with hold parameters DVT prophylaxis Dispo- PCU on tele Full code Updated daughters at bedside and answered all her questions Admission and Anticipated Discharge Date Admission Date: September 24, 2021 Subjective Patient was seen and examined for follow-up of DVT, PE and Elevated creatinine Lying in bed with no acute distress Patient said that she feels fine. Daughter said that her legs seem to be at baseline Spoke to both sisters at bedside and provided with update. Answered all their questions Denies any chest pain, palpitation, dizziness and shortness of breath. Review of Systems Review of Systems: All systems reviewed & are unremarkable except as noted in Subjective Physical Exam Physical Exam: General- No acute distress Head- atraumatic Eyes- PERRL, EOMI, ENT- oropharynx clear Neck- supple, no JVD Lungs- clear to auscultation Heart- regular rhythm; no murmur Abdomen- normal bowel sounds, soft, nontender Extremities- no calf tenderness, +edema Neuro- alert, oriented x 3; PERRL, EOMI; no facial palsy; no dysarthria Skin- warm & dry Results & Data Results & Data ([facility]) Vital Signs (Past 12 Hours) Vital Signs Temp Pulse Resp BP Pulse Ox 09/26/21 15:02 36.7 C 63 17 162/50 H 97 09/26/21 12:30 88 16 93 09/26/21 11:39 36.7 C 74 19 162/88 H 100 09/26/21 07:39 36.7 C 76 18 145/77 H 97 09/26/21 07:31 72 16 95
[2021-09-26] MEDS: MONTELUKAST SODIUM 10 MG TABLET PO SCH (20:02)
[2021-09-26] MEDS: ATORVASTATIN 40 MG TAB PO SCH (20:02)
[2021-09-26] MEDS: FEXOFENADINE HCL 180 MG TAB PO SCH (20:03)
[2021-09-26] MEDS: ISOSORBIDE MONO EXTENDED REL 60 MG TABCR PO SCH (20:03)
[2021-09-26] MEDS: BENZONATATE 100 MG CAPSULE PO PRN (20:10)
[2021-09-27] MEDS: HEPARIN SODIUM/DEXTROSE 25,000 UNITS/500 ML BAG IV SCH (01:03)
[2021-09-27] MEDS: LEVOTHYROXINE SODIUM 75 MCG TABLET PO SCH (05:30)
[2021-09-27] MEDS: BENZONATATE 100 MG CAPSULE PO PRN (05:30)
[2021-09-27 06:56] LABS: Hematocrit (blood only) 31.5 % (37-47); Hemoglobin 10.1 g/dL (12.0-16.0); Mean Corpuscular Hemoglobin 29.7 pg (25-34); Mean Corpuscular Hgb Conc 32.1 g/dL (32-36); Mean Corpuscular Volume 92.6 fL (80-100); Mean Platelet Volume 10.7 fL (7.4-10.4); Platelet Count 229 K/uL (130-400); RDW Coefficient of Variation 15.2 % (11.5-14.5); RDW Standard Deviation 51.2 fL (36.4-46.3); White Blood Count 7.37 K/uL (4.8-10.8)
[2021-09-27 07:18] LABS: Anion Gap 11 (3-11); BUN Creatinine Ratio 13.5 (10-20); Blood Urea Nitrogen 69 mg/dl (6-23); Calcium 8.6 mg/dl (8.5-10.1); Carbon Dioxide 21 mmol/L (21-32); Chloride 93 mmol/L (98-107); Creatinine Clr Calc Pharmacy 6.4 ml/min; Est GFR (Non-African American) 6.9 ml/min; Glucose 85 mg/dl (70-99(Fasting)); Magnesium 2.1 mg/dl (1.7-2.4); Phosphorus 4.8 mg/dl (2.5-4.9); Sodium 125 mmol/L (136-145)
[2021-09-27] MEDS: BUDESONIDE 0.5 MG/2 ML VIAL (PULMICORT) INH SCH ×2 (07:25→19:48)
[2021-09-27] MEDS: LEVALBUTEROL HCL 1.25 MG/3 ML NEB INH SCH ×3 (07:25→19:48)
[2021-09-27] MEDS: NYSTATIN SUSP 500,000 U/5 ML UDC PO SCH ×2 (09:42→21:18)
[2021-09-27] MEDS: ACETAMINOPHEN 500 MG TAB PO SCH ×3 (09:45→21:17)
[2021-09-27] MEDS: POTASSIUM CHLORIDE 10 MEQ TABCR PO SCH (09:46)
[2021-09-27] MEDS: guaiFENesin 600 MG TABCR PO SCH (09:47)
[2021-09-27] MEDS: DOCUSATE SODIUM 100 MG CAP PO SCH ×2 (09:47→21:17)
[2021-09-27] MEDS: FAMOTIDINE 20 MG TAB PO SCH ×2 (09:47→21:20)
[2021-09-27] MEDS: PANTOprazole 40 MG TAB PO SCH ×2 (09:47→18:02)
[2021-09-27] MEDS: CALCITRIOL 0.25 MCG CAPSULE PO SCH (09:47)
[2021-09-27] MEDS: AZELASTINE HCL 0.1% NASAL 200 SPRAYS/27,400 MCG BTL NS SCH ×2 (09:48→21:19)
[2021-09-27] MEDS: MAGNESIUM OXIDE 400 MG TAB PO SCH (09:48)
[2021-09-27] MEDS: carvediloL 12.5 MG TAB PO SCH ×2 (09:48→18:02)
[2021-09-27] MEDS: allopurinoL 100 MG TAB PO SCH (09:48)
[2021-09-27] MEDS: SODIUM CHLORIDE 0.65% NA SOLN 45 ML (OCEAN) SCH ×2 (09:49→21:21)
[2021-09-27] MEDS: TRIAMCINOLONE ACET NASAL SPRAY 10.8ML BTL SCH ×2 (09:49→21:22)
[2021-09-27] MEDS: ESCITALOPRAM OXALATE 10 MG TAB PO SCH (09:50)
[2021-09-27 11:01] LABS: Partial Thromboplastin Ratio 2.5
[2021-09-27 11:10] LABS: Partial Thromboplastin Time 69.4 Seconds (21.0-31.0)
--- NOTE | 2021-09-27 11:16 | Cardiology Progress Note ---
Date of Service September 27, 2021 Assessment & Plan (1) DVT, bilateral lower limbs: (2) Bilateral pulmonary embolism: (3) Chronic diastolic (congestive) heart failure: (4) CAD (coronary artery disease): (5) GI bleed: (6) Transient ischemic attack: (7) History of breast cancer: (8) PAF (paroxysmal atrial fibrillation): Plan: Management of pulmonary emboli and DVT as per primary team. She does have a history of GI bleed while on Coumadin; continue to watch closely 2D echocardiogram reviewed without sign of significant RV strain. Preserved LV systolic function as well. Patient maintaining sinus rhythm. Volume status appears normovolemic to mildly hypovolemic. No further cardiac testing or intervention necessary at this time. Nephrology on board. Admission and Anticipated Discharge Date Admission Date: September 24, 2021 Supervising Physician Co-Signing Physician Notes Patient seen and examined with Dionicio Morrison PA-C. Agree with findings and assessment as above. Subjective Patient seen and examined. Chart, medications, and telemetry reviewed. + Cough. Edema is better than her norm. No chest pain, palpitations, or unusual shortness of breath. No PND, fevers, chills, dizziness, near syncope, or syncope. Metabolic panel with worsening hyponatremia as well as acute on chronic renal dysfunction. Creatinine was 2.01 mg/dL on presentation, rising to 2.32, 3.84, and now 5.12 mg/dL. H&H stable on heparin. Continuous telemetry monitoring reveals sinus with a first-degree heart block, heart rates predominantly in the 60s. No atrial fibrillation. No significant bradycardia or pauses. Review of Systems Review of Systems: Complete Review of Systems is as stated above, negative, or noncontributory. Physical Exam Physical Exam: General: A&Ox3. NAD. HEENT: Normal JVP. Lungs: Diminished. Decreased. No wheeze. Heart: RRR, 70 bpm. Grade I-II/ systolic murmur at the right upper sternal border. There is no diastolic murmur. There is no S-3 gallop. Abdomen: +BS. Soft. Nontender. Extremities: No edema. Chronic varicosities. No cyanosis. No clubbing. + Ecchymosis on the R>L upper extremities. Results & Data ([facility]) Vital Signs (Past 12 Hours) Vital Signs Temp Pulse Pulse Resp BP Pulse Ox 09/27/21 08:31 37.0 C 64 22 159/80 H 99 09/27/21 07:35 68 09/27/21 07:25 63 18 99 09/27/21 03:55 36.6 C 64 18 177/74 H 99 09/26/21 23:20 36.5 C 68 22 160/91 H 97 Laboratory Results Laboratory Results - last 24 hr 09/26/21 09/27/21 09/27/21 12:06 06:29 06:29 WBC 7.37 RBC 3.40 L Hgb 10.1 L Hct 31.5 L MCV 92.6 MCH 29.7 MCHC 32.1 RDW Std Deviation 51.2 H RDW Coeff of Chrissy 15.2 H Plt Count 229 MPV 10.7 H APTT 64.8 H* PTT Ratio 2.4 Sodium 125 L Potassium TNP Chloride 93 L Carbon Dioxide 21 Anion Gap 11 BUN 69 H Creatinine 5.12 H* D Est Cr Clr Drug Dosing 6.4 Est GFR ( Amer) 8.0 Est GFR (Non-Af Amer) 6.9 BUN/Creatinine Ratio 13.5 Glucose 85 Calcium 8.6 Phosphorus 4.8 Magnesium 2.1 09/27/21 09/27/21 09/27/21 07:27 08:44 10:15 WBC RBC Hgb Hct MCV MCH MCHC RDW Std Deviation RDW Coeff of Chrissy Plt Count MPV APTT PTT Ratio Sodium Potassium TNP Cancelled 5.0 Chloride Carbon Dioxide Anion Gap BUN Creatinine Est Cr Clr Drug Dosing Est GFR ( Amer) Est GFR (Non-Af Amer) BUN/Creatinine Ratio Glucose Calcium Phosphorus Magnesium 09/27/21 10:15 WBC RBC Hgb Hct MCV MCH MCHC RDW Std Deviation RDW Coeff of Chrissy Plt Count MPV APTT 69.4 H* PTT Ratio 2.5 Sodium Potassium Chloride Carbon Dioxide Anion Gap BUN Creatinine Est Cr Clr Drug Dosing Est GFR ( Amer) Est GFR (Non-Af Amer) BUN/Creatinine Ratio Glucose Calcium Phosphorus Magnesium
--- NOTE | 2021-09-27 12:29 | Nephrology Progress Note ---
Date of Service September 27, 2021 Assessment & Plan Admission and Anticipated Discharge Date Admission Date: September 24, 2021 Subjective Assessment & Plan (1) CARLO (acute kidney injury): Ischemic ATN In the setting of pulmonary embolism with double contrast exposure. And creatinine has continued to rise rapidly. this is not a good sign. At this rate by tomorrow or creatinine could be in the 7 range which is high enough to need dialysis. however patient does not want dialysis. After blood work tomorrow I will talk with the patient and her daughter again to have a definitive plan. she had pre-existing CKD 4 and at age 89 even if it is ATN the chances of recovery is lot less. no IV fluid and no Lasix today Care co-ordinated wodarci Angulo. subjective----- feels weak and tired. Poor appetite and nausea, F mg PO HS 11/15/20 09/24/21 History tablet,extended release 24 hr A Review of Systems Review of Systems: All systems reviewed & are unremarkable except as noted in Subjective Physical Exam Physical Exam: General: awake, alert, in mild distress Head: Normocephalic, atraumatic ENT: PERRL, EOMI, no pharyngeal exudate, mucous membranes moist Chest: on room air, diminished breath sounds at bases Cardiac:, no murmur, no JVD, normal peripheral pulses, good capillary refill Abdominal: NABS x 4 quadrants, soft, nondistended, nontender to palpation, no rebound or guarding Extremities: + 2 pitting peripheral edema bilaterally Psych: Normal mood and affect Neuro: AAO x 3, strength intact bilaterally and rated 5/5, no motor deficits, speech is clear, no peripheral sensory deficits Results & Data ([facility]) Vital Signs (Past 12 Hours) Vital Signs Temp Pulse Pulse Resp BP Pulse Ox 09/27/21 08:31 37.0 C 64 22 159/80 H 99 09/27/21 07:35 68 09/27/21 07:25 63 18 99 09/27/21 03:55 36.6 C 64 18 177/74 H 99
[2021-09-27] MEDS: SUCRALFATE 1 GM/10 ML UDC PO SCH ×3 (15:15→21:18)
--- NOTE | 2021-09-27 16:09 | Hospitalist Progress Note ---
Date of Service September 27, 2021 Assessment & Plan (1) Bilateral pulmonary embolism: (2) DVT, bilateral lower limbs: Plan: Bilateral segmental PE with bilateral DVT LE, no heart strain- on tamoxifen for breast cancer which could be the culprit. 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 F/u with onc - 1st episode, hemodynamically stable, hypoxia stable on home oxygen - CTA chest-Segmental pulmonary emboli are seen without evidence of right heart strain. -US LE -bilateral DVTs - Start on heparin drip to see how she would tolerate given UGI bleed on coumadin back in May. If tolerates, can change to DOAC or coumadin. If does not tolerate, will need IVC filter. - Hold tamoxifen, follow up with oncology for further discussion -Remains stable and denies any acute chest pain and/or more shortness of breath -Echo of the heart showed-no significant change compared to previous study of 04/01/2020, normal LV size and wall thickness with EF 60 to 65%, no segmental wall motion abnormalities, grade 3 diastolic dysfunction consistent with restrictive physiology, RV size is normal, aortic sclerosis without stenosis -Appreciate cardiology input and recommended -PT/OT evaluation - Continue IV Heparin drip for now. Not sure if pt will be a candidate for the DOAC due to Acute renal failure, if not olvin consider to resume coumadin Chronic hypoxic respiratory failure Moderate persistent asthma- not in acute exacerbation, continue home inhalers/nebs along with nystatin to prevent thrush Chronic hypoxic respiratory failure- on NC at 2 L at home, continue. 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 Increased cortical echogenicity bilaterally consistent with medical renal disease. Nephrology on board recommended hold on Lasix and IVF Losartan and Spironolactone on hold Creatinine might continue to get worst tomorrow as per nephrology Patient does not want dialysis, but daughter said that the family will discuss about dialysis Continue monitor renal function closely (4) Chronic diastolic (congestive) heart failure: Plan: Chronic diastolic CHF- looks compensated but she was given IVF in ED for dye load because of her CKD. Will give a dose of iv lasix tonight and continue home lasix 60 bid from tomorrow morning (takes at 9 am and 1 pm at home). continue daily weight, strict I and Os, check echo. Follows with cardio as OP. Will consult cardio as per daughter's request. 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 Continue synthroid at home dose. (7) GERD (gastroesophageal reflux disease): Plan: HTN- continue home meds with hold parameters DVT prophylaxis Dispo- PCU on tele Full code Updated daughters at bedside and answered all her questions Admission and Anticipated Discharge Date Admission Date: September 24, 2021 Subjective Pt was seen and examined for follow up of PE/DVT and worsening creatinine Lying in bed with no acute distress Pt is very emotional because her renal function is worsening Both daughters at bedside, one of the daughter was in tear Daughters asked if one of them can stay overnight with the patient I told them that i would ask the charge nurse about one of the daughter to stay overnight base of the hospital policy Daughter also spoke to Nephrology dr. Calvert today Review of Systems Review of Systems: All systems reviewed & are unremarkable except as noted in Subjective Physical Exam Physical Exam: General- No acute distress Head- atraumatic Eyes- PERRL, EOMI, ENT- oropharynx clear Neck- supple, no JVD Lungs- clear to auscultation Heart- regular rhythm; no murmur Abdomen- normal bowel sounds, soft, nontender Extremities- no calf tenderness, +edema Neuro- alert, oriented x 3; PERRL, EOMI; no facial palsy; no dysarthria Skin- warm & dry Results & Data Results & Data ([facility]) Vital Signs (Past 12 Hours) Vital Signs Temp Pulse Pulse Pulse Resp BP Pulse Ox 09/27/21 13:12 64 18 97 09/27/21 12:42 36.9 C 63 18 144/69 H 100 09/27/21 08:31 37.0 C 64 22 159/80 H 99 09/27/21 07:35 68 09/27/21 07:25 63 18 99
[2021-09-27] MEDS: SODIUM CHLORIDE 0.9% 1000ML 1,000 ML IV SCH (16:18)
[2021-09-27 18:00] LABS: Partial Thromboplastin Ratio 2.1
[2021-09-27] MEDS: LOPERAMIDE HCL 2 MG CAP PO PRN (18:01)
[2021-09-27 18:13] LABS: Partial Thromboplastin Time 56.8 Seconds (21.0-31.0)
[2021-09-27] MEDS: MONTELUKAST SODIUM 10 MG TABLET PO SCH (21:17)
[2021-09-27] MEDS: ATORVASTATIN 40 MG TAB PO SCH (21:20)
[2021-09-27] MEDS: FEXOFENADINE HCL 180 MG TAB PO SCH (21:20)
[2021-09-27] MEDS: ISOSORBIDE MONO EXTENDED REL 60 MG TABCR PO SCH (21:21)
[2021-09-28] MEDS: SODIUM CHLORIDE 0.9% 1000ML 1,000 ML IV SCH (04:44)
[2021-09-28] MEDS: LEVOTHYROXINE SODIUM 150 MCG TABLET PO SCH (05:51)
[2021-09-28 05:55] LABS: Hemoglobin 10.8 g/dL (12.0-16.0); Mean Corpuscular Hemoglobin 29.5 pg (25-34); Mean Corpuscular Hgb Conc 32.7 g/dL (32-36); Mean Corpuscular Volume 90.2 fL (80-100); Mean Platelet Volume 10.1 fL (7.4-10.4); Platelet Count 196 K/uL (130-400); RDW Coefficient of Variation 15.1 % (11.5-14.5); RDW Standard Deviation 49.5 fL (36.4-46.3); Red Blood Count 3.66 M/uL (4.2-5.4); White Blood Count 6.07 K/uL (4.8-10.8)
[2021-09-28] MEDS: HEPARIN SODIUM/DEXTROSE 25,000 UNITS/500 ML BAG IV SCH (06:05)
[2021-09-28 06:28] LABS: BUN Creatinine Ratio 12.3 (10-20); Calcium 8.8 mg/dl (8.5-10.1); Est GFR (African American) 7.2 ml/min; Est GFR (Non-African American) 6.2 ml/min; Potassium 5.6 mmol/L (3.5-5.1)
[2021-09-28 06:32] LABS: Partial Thromboplastin Ratio 2.1
[2021-09-28 06:39] LABS: Partial Thromboplastin Time 57.1 Seconds (21.0-31.0)
[2021-09-28] MEDS: LEVALBUTEROL HCL 1.25 MG/3 ML NEB INH SCH ×3 (07:12→19:15)
[2021-09-28] MEDS: BUDESONIDE 0.5 MG/2 ML VIAL (PULMICORT) INH SCH ×2 (07:12→19:15)
[2021-09-28] MEDS: NYSTATIN SUSP 500,000 U/5 ML UDC PO SCH ×2 (08:46→20:11)
[2021-09-28] MEDS: allopurinoL 100 MG TAB PO SCH (09:06)
[2021-09-28] MEDS: ACETAMINOPHEN 500 MG TAB PO SCH ×3 (09:06→20:09)
[2021-09-28] MEDS: AZELASTINE HCL 0.1% NASAL 200 SPRAYS/27,400 MCG BTL NS SCH ×2 (09:07→20:11)
[2021-09-28] MEDS: carvediloL 12.5 MG TAB PO SCH ×2 (09:08→17:33)
[2021-09-28] MEDS: DOCUSATE SODIUM 100 MG CAP PO SCH (09:08)
[2021-09-28] MEDS: ESCITALOPRAM OXALATE 10 MG TAB PO SCH (09:09)
[2021-09-28] MEDS: FAMOTIDINE 20 MG TAB PO SCH ×2 (09:10→20:10)
[2021-09-28] MEDS: guaiFENesin 600 MG TABCR PO SCH (09:15)
[2021-09-28] MEDS: MAGNESIUM OXIDE 400 MG TAB PO SCH (09:16)
[2021-09-28] MEDS: PANTOprazole 40 MG TAB PO SCH ×2 (09:16→17:24)
[2021-09-28] MEDS: TRIAMCINOLONE ACET NASAL SPRAY 10.8ML BTL SCH ×2 (09:17→20:12)
[2021-09-28] MEDS: SODIUM CHLORIDE 0.65% NA SOLN 45 ML (OCEAN) SCH ×2 (09:17→20:12)
--- NOTE | 2021-09-28 09:27 | Nephrology Progress Note ---
Date of Service September 28, 2021 Assessment & Plan Admission and Anticipated Discharge Date Admission Date: September 24, 2021 Subjective Assessment & Plan (1) CARLO (acute kidney injury): Ischemic ATN In the setting of pulmonary embolism with double contrast exposure. her baseline creat 1.6 and was in ARF in the ED even before contrast exposure. Creat went up only slightly overnight. Not much urine. Denies SOB. na is low and K is high. Stop NS. use bicarb 100 meq at 50/hr. veltassa daily. renal diet. No dialysis today. I am slightly more hopeful today than yesterday regarding chance of renal recovery and avoiding dialysis. Care co-ordinated with Dr Angulo. subjective----- feels weak and tired. Poor appetite and nausea. Not much urine but no major SOB Physical Exam Physical Exam: General: awake, alert, in mild distress Head: Normocephalic, atraumatic ENT: PERRL, EOMI, no pharyngeal exudate, mucous membranes moist Chest: on room air, diminished breath sounds at bases Cardiac:, no murmur, no JVD, normal peripheral pulses, good capillary refill Abdominal: NABS x 4 quadrants, soft, nondistended, nontender to palpation, no rebound or guarding Extremities: + 1 pitting peripheral edema bilaterally Psych: Normal mood and affect Neuro: AAO x 3, strength intact bilaterally and rated 5/5, no motor deficits, speech is clear, no peripheral sensory deficits Results & Data ([facility]) Vital Signs (Past 12 Hours) Vital Signs Temp Pulse Pulse Resp BP Pulse Ox 09/28/21 08:47 37.1 C 65 16 138/70 96 09/28/21 07:12 64 16 99 09/28/21 04:15 142/78 H 09/28/21 04:02 67 09/28/21 03:43 36.9 C 65 18 99 09/28/21 00:14 128/84
[2021-09-28] MEDS: SODIUM BICARBONATE 8.4% 100 MEQ in WATER, STERILE 1,000 ML IV SCH (10:28)
[2021-09-28] MEDS: PATIROMER CALCIUM SORBITEX 8.4 GM PACK PO SCH (11:35)
[2021-09-28] MEDS: SUCRALFATE 1 GM/10 ML UDC PO SCH ×3 (11:38→20:08)
[2021-09-28] MEDS: LOPERAMIDE HCL 2 MG CAP PO PRN (17:42)
[2021-09-28] MEDS: AMOXICILLIN 500 MG CAP PO SCH (18:32)
[2021-09-28] MEDS: FEXOFENADINE HCL 180 MG TAB PO SCH (20:09)
[2021-09-28] MEDS: ATORVASTATIN 40 MG TAB PO SCH (20:10)
[2021-09-28] MEDS: ISOSORBIDE MONO EXTENDED REL 60 MG TABCR PO SCH (20:10)
[2021-09-28] MEDS: MONTELUKAST SODIUM 10 MG TABLET PO SCH (20:11)
--- NOTE | 2021-09-28 22:33 | Hospitalist Progress Note ---
Date of Service September 28, 2021 Assessment & Plan (1) Bilateral pulmonary embolism: (2) DVT, bilateral lower limbs: Plan: Bilateral segmental PE with bilateral DVT LE, no heart strain- on tamoxifen for breast cancer which could be the culprit. 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 F/u with onc - 1st episode, hemodynamically stable, hypoxia stable on home oxygen - CTA chest-Segmental pulmonary emboli are seen without evidence of right heart strain. -US LE -bilateral DVTs - Start on heparin drip to see how she would tolerate given UGI bleed on coumadin back in May. If tolerates, can change to DOAC or coumadin. If does not tolerate, will need IVC filter. - Hold tamoxifen, follow up with oncology for further discussion -Remains stable and denies any acute chest pain and/or more shortness of breath -Echo of the heart showed-no significant change compared to previous study of 04/01/2020, normal LV size and wall thickness with EF 60 to 65%, no segmental wall motion abnormalities, grade 3 diastolic dysfunction consistent with restrictive physiology, RV size is normal, aortic sclerosis without stenosis -Appreciate cardiology input and recommended -PT/OT evaluation - Continue IV Heparin drip for now. Not sure if pt will be a candidate for the DOAC due to Acute renal failure, if not olvin consider to resume coumadin Chronic hypoxic respiratory failure Moderate persistent asthma- not in acute exacerbation, continue home inhalers/nebs along with nystatin to prevent thrush Chronic hypoxic respiratory failure- on NC at 2 L at home, continue. 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 Increased cortical echogenicity bilaterally consistent with medical renal disease. Nephrology on board recommended hold on Lasix and IVF Losartan and Spironolactone on hold Creatinine might continue to get worst as per nephrology Patient does not want dialysis, but daughter said that the family will discuss about dialysis Continue monitor renal function closely (4) Chronic diastolic (congestive) heart failure: Plan: Chronic diastolic CHF- looks compensated but she was given IVF in ED for dye load because of her CKD. Will give a dose of iv lasix tonight and continue home lasix 60 bid from tomorrow morning (takes at 9 am and 1 pm at home). continue daily weight, strict I and Os, check echo. Follows with cardio as OP. Will consult cardio as per daughter's request. 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 Continue synthroid at home dose. (7) GERD (gastroesophageal reflux disease): Plan: HTN- continue home meds with hold parameters DVT prophylaxis Dispo- PCU on tele Full code Updated daughter at bedside and answered all her questions Admission and Anticipated Discharge Date Admission Date: September 24, 2021 Subjective Pt was seen and examined for follow up of PE/DVT and elevated creatinine Lying in bed with no acute distress Pt said that she feels ok She is not having any diarrhea Daughter at bedside provided with update and answered all her questions Daughter said that she does not have any sign of fluid overload Daughter asked to start her on her amoxicillin that pt usually received every month for the 1st 10 days Daughter also spoke to Nephrology dr. Calvert over the phone Denies any chest pain, palpitation, dizziness fever and SOB Review of Systems Review of Systems: All systems reviewed & are unremarkable except as noted in Subjective Physical Exam Physical Exam: General- No acute distress Head- atraumatic Eyes- PERRL, EOMI, ENT- oropharynx clear Neck- supple, no JVD Lungs- coarse BS Heart- regular rhythm; no murmur Abdomen- normal bowel sounds, soft, nontender Extremities- no calf tenderness, +edema Neuro- alert, oriented x 3; PERRL, EOMI; no facial palsy; no dysarthria Skin- warm & dry Results & Data Results & Data ([facility]) Vital Signs (Past 12 Hours) Vital Signs Temp Pulse Pulse Resp BP BP Pulse Ox 09/28/21 19:26 145/75 H 09/28/21 19:16 64 16 96 09/28/21 19:10 36.5 C 62 20 98 09/28/21 15:46 36.7 C 68 18 140/90 99 09/28/21 14:56 61 09/28/21 12:56 65 18 94 09/28/21 12:09 36.6 C 64 18 145/80 H 100 09/28/21 11:09 63
[2021-09-29] MEDS: LEVOTHYROXINE SODIUM 75 MCG TABLET PO SCH (05:59)
[2021-09-29] MEDS: SODIUM BICARBONATE 8.4% 100 MEQ in WATER, STERILE 1,000 ML IV SCH (06:48)
[2021-09-29 06:56] LABS: Hematocrit (blood only) 32.3 % (37-47); Hemoglobin 10.6 g/dL (12.0-16.0); Mean Corpuscular Hemoglobin 29.4 pg (25-34); Mean Corpuscular Hgb Conc 32.8 g/dL (32-36); Mean Corpuscular Volume 89.7 fL (80-100); Mean Platelet Volume 10.9 fL (7.4-10.4); Platelet Count 281 K/uL (130-400); RDW Coefficient of Variation 14.5 % (11.5-14.5); RDW Standard Deviation 48.1 fL (36.4-46.3); White Blood Count 5.76 K/uL (4.8-10.8)
[2021-09-29 07:18] LABS: BUN Creatinine Ratio 13.5 (10-20); Calcium 9.2 mg/dl (8.5-10.1); Creatinine Clr Calc Pharmacy 6.6 ml/min; Est GFR (African American) 8.2 ml/min; Est GFR (Non-African American) 7.1 ml/min; Potassium 4.5 mmol/L (3.5-5.1)
[2021-09-29 07:19] LABS: Partial Thromboplastin Ratio 1.9
[2021-09-29 07:20] LABS: Partial Thromboplastin Time 52.5 Seconds (21.0-31.0)
[2021-09-29] MEDS: LEVALBUTEROL HCL 1.25 MG/3 ML NEB INH SCH ×4 (07:21→19:12)
[2021-09-29] MEDS: BUDESONIDE 0.5 MG/2 ML VIAL (PULMICORT) INH SCH ×2 (07:21→19:12)
[2021-09-29] MEDS: NYSTATIN SUSP 500,000 U/5 ML UDC PO SCH ×2 (07:44→21:07)
[2021-09-29] MEDS: carvediloL 12.5 MG TAB PO SCH ×2 (08:39→18:10)
[2021-09-29] MEDS: PANTOprazole 40 MG TAB PO SCH ×2 (08:39→18:08)
[2021-09-29] MEDS: CALCITRIOL 0.25 MCG CAPSULE PO SCH (08:39)
[2021-09-29] MEDS: FAMOTIDINE 20 MG TAB PO SCH ×2 (08:39→21:08)
[2021-09-29] MEDS: guaiFENesin 600 MG TABCR PO SCH (08:39)
[2021-09-29] MEDS: ACETAMINOPHEN 500 MG TAB PO SCH ×3 (08:39→21:08)
[2021-09-29] MEDS: allopurinoL 100 MG TAB PO SCH (08:40)
[2021-09-29] MEDS: SODIUM CHLORIDE 0.65% NA SOLN 45 ML (OCEAN) SCH ×2 (08:40→21:09)
[2021-09-29] MEDS: ESCITALOPRAM OXALATE 10 MG TAB PO SCH (08:40)
[2021-09-29] MEDS: AZELASTINE HCL 0.1% NASAL 200 SPRAYS/27,400 MCG BTL NS SCH ×2 (08:41→21:09)
[2021-09-29] MEDS: TRIAMCINOLONE ACET NASAL SPRAY 10.8ML BTL SCH ×2 (08:41→21:10)
[2021-09-29] MEDS: HEPARIN SODIUM/DEXTROSE 25,000 UNITS/500 ML BAG IV SCH ×2 (08:55→18:03)
--- NOTE | 2021-09-29 10:32 | Nephrology Progress Note ---
Date of Service September 29, 2021 Assessment & Plan Admission and Anticipated Discharge Date Admission Date: September 24, 2021 Subjective Assessment & Plan (1) CARLO (acute kidney injury): Ischemic ATN In the setting of pulmonary embolism with double contrast exposure. her baseline creat 1.6 and was in ARF in the ED even before contrast exposure but since then has gone up even more. Creat went Down slightly overnight. More urine now --900 ml yesterday.has some SOB. Normal K now. Na went up a bit also. eating and drinking better now so will d/c iv fluids. Veltassa daily. renal diet. No dialysis today. I am slightly more hopeful today than yesterday regarding chance of renal recovery and avoiding dialysis. Care co-ordinated with Dr Angulo. subjective----- feels weak and tired. Poor appetite and nausea. Some SOB. urine lot more. Physical Exam Physical Exam: General: awake, alert, in mild distress Head: Normocephalic, atraumatic ENT: PERRL, EOMI, no pharyngeal exudate, mucous membranes moist Chest: on room air, diminished breath sounds at bases Cardiac:, no murmur, no JVD, normal peripheral pulses, good capillary refill Abdominal: NABS x 4 quadrants, soft, nondistended, nontender to palpation, no rebound or guarding Extremities: + 1 pitting peripheral edema bilaterally Psych: Normal mood and affect Neuro: AAO x 3, strength intact bilaterally and rated 5/5, no motor deficits, speech is clear, no peripheral sensory deficits Results & Data ([facility]) Vital Signs (Past 12 Hours) Vital Signs Temp Pulse Resp BP Pulse Ox 09/29/21 07:48 138/88 09/29/21 07:21 64 20 94 09/29/21 06:45 36.5 C 63 16 99 09/29/21 03:05 36.5 C 65 16 96 09/29/21 02:58 130/70 09/28/21 23:19 36.6 C 68 18 97 09/28/21 23:11 115/60
[2021-09-29] MEDS: SUCRALFATE 1 GM/10 ML UDC PO SCH ×3 (12:06→21:08)
[2021-09-29] MEDS: PATIROMER CALCIUM SORBITEX 8.4 GM PACK PO SCH (12:07)
[2021-09-29] MEDS: AMOXICILLIN 500 MG CAP PO SCH (18:09)
--- NOTE | 2021-09-29 19:27 | Hospitalist Progress Note ---
Date of Service September 29, 2021 Assessment & Plan (1) Bilateral pulmonary embolism: (2) DVT, bilateral lower limbs: Plan: Bilateral segmental PE with bilateral DVT LE, no heart strain- on tamoxifen for breast cancer which could be the culprit. 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 F/u with onc - 1st episode, hemodynamically stable, hypoxia stable on home oxygen - CTA chest-Segmental pulmonary emboli are seen without evidence of right heart strain. -US LE -bilateral DVTs - Start on heparin drip to see how she would tolerate given UGI bleed on coumadin back in May. If tolerates, can change to DOAC or coumadin. If does not tolerate, will need IVC filter. - Hold tamoxifen, follow up with oncology for further discussion -Remains stable and denies any acute chest pain and/or more shortness of breath -Echo of the heart showed-no significant change compared to previous study of 04/01/2020, normal LV size and wall thickness with EF 60 to 65%, no segmental wall motion abnormalities, grade 3 diastolic dysfunction consistent with restrictive physiology, RV size is normal, aortic sclerosis without stenosis -Appreciate cardiology input and recommended -PT/OT evaluation - Continue IV Heparin drip for now. Not sure if pt will be a candidate for the DOAC due to Acute renal failure, if not olvin consider to resume coumadin Chronic hypoxic respiratory failure Moderate persistent asthma- not in acute exacerbation, continue home inhalers/nebs along with nystatin to prevent thrush Chronic hypoxic respiratory failure- on NC at 2 L at home, continue. 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 Increased cortical echogenicity bilaterally consistent with medical renal disease. Nephrology on board recommended hold on Lasix and IVF Losartan and Spironolactone on hold IVF discontinued today by nephrology Patient does not want dialysis, but daughter said that the family will discuss about dialysis Continue monitor renal function closely (4) Chronic diastolic (congestive) heart failure: Plan: Chronic diastolic CHF- looks compensated but she was given IVF in ED for dye load because of her CKD. Will give a dose of iv lasix tonight and continue home lasix 60 bid from tomorrow morning (takes at 9 am and 1 pm at home). continue daily weight, strict I and Os, check echo. Follows with cardio as OP. Will consult cardio as per daughter's request. Likely secondary to diastolic dysfunction Increased weight by 78KG today Nephrology recommended to continue to hold lasix Gentle IVF by nephrology Continue monitor I/O (5) PAF (paroxysmal atrial fibrillation): Plan: Rate is controlled Continue IV heparin drip for the PE/DVT Will resume Coumadin once decision makes about no dialysis or any procedure plan (6) Electrolyte imbalance: Plan: Na 125 and K 4.5 today Continue Veltassa Continue monitor BMP (7) Hypothyroidism (acquired): Plan: Continue with supplement H/o follicular thyroid cancer s/p thyroidectomy with postsurgical hypothyr oidism- TSH elevated but T4 normal-dose being adjusted by endo as OP- F/u as OP for further management. Continue synthroid at home dose. (8) GERD (gastroesophageal reflux disease): Plan: HTN- continue home meds with hold parameters DVT prophylaxis Dispo- PCU on tele Full code Admission and Anticipated Discharge Date Admission Date: September 24, 2021 Subjective Pt was seen and examined for follow up of PE/DVT and elevated creatinine Lying in bed with no acute distress Pt said that she feels ok Denies any chest pain, palpitation, dizziness fever and SOB Review of Systems Review of Systems: All systems reviewed & are unremarkable except as noted in Subjective Physical Exam Physical Exam: General- No acute distress Head- atraumatic Eyes- PERRL, EOMI, ENT- oropharynx clear Neck- supple, no JVD Lungs- coarse BS Heart- regular rhythm; no murmur Abdomen- normal bowel sounds, soft, nontender Extremities- no calf tenderness, +edema Neuro- alert, oriented x 3; PERRL, EOMI; no facial palsy; no dysarthria Skin- warm & dry Results & Data Results & Data ([facility]) Vital Signs (Past 12 Hours) Vital Signs Temp Pulse Pulse Resp BP Pulse Ox 09/29/21 19:12 77 20 96 09/29/21 16:42 36.4 C L 68 18 96 09/29/21 15:24 65 16 96 09/29/21 15:09 65 09/29/21 11:18 60 16 98 09/29/21 11:14 36.9 C 62 22 129/89 93 09/29/21 07:48 138/88 09/29/21 07:45 66
[2021-09-29] MEDS: predniSONE 20 MG TAB PO SCH (21:06)
[2021-09-29] MEDS: ATORVASTATIN 40 MG TAB PO SCH (21:07)
[2021-09-29] MEDS: ISOSORBIDE MONO EXTENDED REL 60 MG TABCR PO SCH (21:07)
[2021-09-29] MEDS: MONTELUKAST SODIUM 10 MG TABLET PO SCH (21:08)
[2021-09-29] MEDS: FEXOFENADINE HCL 180 MG TAB PO SCH (21:09)
[2021-09-30] MEDS: LEVOTHYROXINE SODIUM 150 MCG TABLET PO SCH (05:32)
[2021-09-30] MEDS: LEVALBUTEROL HCL 1.25 MG/3 ML NEB INH SCH ×4 (06:54→19:11)
[2021-09-30] MEDS: BUDESONIDE 0.5 MG/2 ML VIAL (PULMICORT) INH SCH ×2 (06:54→19:11)
[2021-09-30 06:56] LABS: Partial Thromboplastin Ratio 2.1
[2021-09-30 06:59] LABS: Partial Thromboplastin Time 58.3 Seconds (21.0-31.0)
[2021-09-30 07:07] LABS: BUN Creatinine Ratio 14.2 (10-20); Calcium 9.3 mg/dl (8.5-10.1); Creatinine Clr Calc Pharmacy 8.2 ml/min; Est GFR (African American) 10.5 ml/min; Est GFR (Non-African American) 9.1 ml/min; Potassium 4.7 mmol/L (3.5-5.1)
[2021-09-30] MEDS: NYSTATIN SUSP 500,000 U/5 ML UDC PO SCH ×2 (07:45→17:38)
--- NOTE | 2021-09-30 09:21 | Nephrology Progress Note ---
Date of Service September 30, 2021 Assessment & Plan Admission and Anticipated Discharge Date Admission Date: September 24, 2021 Subjective Subjective Assessment & Plan (1) CARLO (acute kidney injury): Ischemic ATN In the setting of pulmonary embolism with double contrast exposure. her baseline creat 1.6 and was in ARF in the ED even before contrast exposure but since then has gone up even more. Creat went Down overnight. More urine now --1200 ml yesterday. Has some SOB. Normal K now. Can stop veltassa now Na went up a bit also. eating and drinking better now so no need of iv fluids. renal diet. No dialysis today. I am lot more hopeful today than yesterday regarding chance of renal recovery and avoiding dialysis. Care co-ordinated with Dr Angulo. subjective----- feels weak and tired. Poor appetite and nausea. Some SOB. urine lot more. Physical Exam Physical Exam: General: awake, alert, in mild distress Head: Normocephalic, atraumatic ENT: PERRL, EOMI, no pharyngeal exudate, mucous membranes moist Chest: on room air, diminished breath sounds at bases Cardiac:, no murmur, no JVD, normal peripheral pulses, good capillary refill Abdominal: NABS x 4 quadrants, soft, nondistended, nontender to palpation, no rebound or guarding Extremities: + 1 pitting peripheral edema bilaterally Psych: Normal mood and affect Neuro: AAO x 3, strength intact bilaterally and rated 5/5, no motor deficits, speech is clear, no peripheral sensory deficits Results & Data ([facility]) Vital Signs (Past 12 Hours) Vital Signs Temp Pulse Pulse Resp BP Pulse Ox 09/30/21 06:55 69 18 96 09/30/21 04:37 36.7 C 74 18 132/92 96 09/29/21 23:08 36.6 C 65 18 96 09/29/21 22:20 62
[2021-09-30] MEDS: ACETAMINOPHEN 500 MG TAB PO SCH ×3 (10:24→21:41)
[2021-09-30] MEDS: allopurinoL 100 MG TAB PO SCH (10:24)
[2021-09-30] MEDS: AZELASTINE HCL 0.1% NASAL 200 SPRAYS/27,400 MCG BTL NS SCH ×2 (10:25→22:51)
[2021-09-30] MEDS: carvediloL 12.5 MG TAB PO SCH ×2 (10:27→17:31)
[2021-09-30] MEDS: ESCITALOPRAM OXALATE 10 MG TAB PO SCH (10:27)
[2021-09-30] MEDS: predniSONE 20 MG TAB PO SCH (10:28)
[2021-09-30] MEDS: FAMOTIDINE 20 MG TAB PO SCH ×2 (10:28→22:35)
[2021-09-30] MEDS: PANTOprazole 40 MG TAB PO SCH ×2 (10:28→17:31)
[2021-09-30] MEDS: SODIUM CHLORIDE 0.65% NA SOLN 45 ML (OCEAN) SCH ×2 (10:29→22:51)
[2021-09-30] MEDS: guaiFENesin 600 MG TABCR PO SCH (10:29)
[2021-09-30] MEDS: TRIAMCINOLONE ACET NASAL SPRAY 10.8ML BTL SCH ×2 (10:30→22:52)
[2021-09-30] MEDS: SUCRALFATE 1 GM/10 ML UDC PO SCH ×3 (11:43→22:52)
[2021-09-30] MEDS: PATIROMER CALCIUM SORBITEX 8.4 GM PACK PO SCH (12:59)
[2021-09-30] MEDS: AMOXICILLIN 500 MG CAP PO SCH (17:32)
[2021-09-30] MEDS: ISOSORBIDE MONO EXTENDED REL 60 MG TABCR PO SCH (21:43)
[2021-09-30] MEDS: ATORVASTATIN 40 MG TAB PO SCH (21:43)
[2021-09-30] MEDS ORDERED: OLANZapine 10 MG/2.1 ML SDV IM PRN (21:45)
[2021-09-30] MEDS: MONTELUKAST SODIUM 10 MG TABLET PO SCH (22:36)
[2021-09-30] MEDS: FEXOFENADINE HCL 180 MG TAB PO SCH (22:36)
[2021-09-30] MEDS ORDERED: MELATONIN 3 MG TAB PO PRN (22:51)
[2021-09-30] MEDS ORDERED: traMADol HCL 50 MG TABLET PO STA (23:43)
--- NOTE | 2021-09-30 23:58 | Hospitalist Progress Note ---
Date of Service September 30, 2021 Assessment & Plan (1) Bilateral pulmonary embolism: (2) DVT, bilateral lower limbs: Plan: Bilateral segmental PE with bilateral DVT LE, no heart strain- on tamoxifen for breast cancer which could be the culprit. 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 F/u with onc - 1st episode, hemodynamically stable, hypoxia stable on home oxygen - CTA chest-Segmental pulmonary emboli are seen without evidence of right heart strain. -US LE -bilateral DVTs - Start on heparin drip to see how she would tolerate given UGI bleed on coumadin back in May. If tolerates, can change to DOAC or coumadin. If does not tolerate, will need IVC filter. - Hold tamoxifen, follow up with oncology for further discussion -Remains stable and denies any acute chest pain and/or more shortness of breath -Echo of the heart showed-no significant change compared to previous study of 04/01/2020, normal LV size and wall thickness with EF 60 to 65%, no segmental wall motion abnormalities, grade 3 diastolic dysfunction consistent with restrictive physiology, RV size is normal, aortic sclerosis without stenosis -Appreciate cardiology input and recommended -PT/OT evaluation - Continue IV Heparin drip for now. Not sure if pt will be a candidate for the DOAC due to Acute renal failure, if not olvin consider to resume coumadin - Will consider to start on coumadin Chronic hypoxic respiratory failure Moderate persistent asthma- not in acute exacerbation, continue home inhalers/nebs along with nystatin to prevent thrush Chronic hypoxic respiratory failure- on NC at 2 L at home, continue. 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 Increased cortical echogenicity bilaterally consistent with medical renal disease. Nephrology on board recommended hold on Lasix and IVF Losartan and Spironolactone on hold IVF discontinued today by nephrology Patient does not want dialysis, but daughter said that the family will discuss about dialysis Continue monitor renal function closely (4) Chronic diastolic (congestive) heart failure: Plan: Chronic diastolic CHF- looks compensated but she was given IVF in ED for dye load because of her CKD. Will give a dose of iv lasix tonight and continue home lasix 60 bid from tomorrow morning (takes at 9 am and 1 pm at home). continue daily weight, strict I and Os, check echo. Follows with cardio as OP. Will consult cardio as per daughter's request. 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 Continue synthroid at home dose. (8) GERD (gastroesophageal reflux disease): Plan: HTN- continue home meds with hold parameters DVT prophylaxis Dispo- PCU on tele Full code Admission and Anticipated Discharge Date Admission Date: September 24, 2021 Subjective Pt was seen and examined for follow up of PE/DVT and elevated creatinine Siting in chair with no acute distress eating lunch Pt said that she feels much better I was able to update the 2 sisters at bedside and answered all the questions Denies any chest pain, palpitation, dizziness fever and SOB Review of Systems Review of Systems: All systems reviewed & are unremarkable except as noted in Subjective Physical Exam Physical Exam: General- No acute distress Head- atraumatic Eyes- PERRL, EOMI, ENT- oropharynx clear Neck- supple, no JVD Lungs- faint wheezing Heart- regular rhythm; no murmur Abdomen- normal bowel sounds, soft, nontender Extremities- no calf tenderness, +edema Neuro- alert, oriented x 3; PERRL, EOMI; no facial palsy; no dysarthria Skin- warm & dry Results & Data Results & Data ([facility]) Vital Signs (Past 12 Hours) Vital Signs Temp Pulse Pulse Pulse Resp BP Pulse Ox 09/30/21 22:55 136/84 09/30/21 16:19 37.2 C 75 14 127/72 98 05/19/22 15:09 74 18 97 09/30/21 14:19 69
[2021-10-01] MEDS: HEPARIN SODIUM/DEXTROSE 25,000 UNITS/500 ML BAG IV SCH ×2 (04:08→16:38)
[2021-10-01] MEDS: LEVOTHYROXINE SODIUM 75 MCG TABLET PO SCH (05:08)
[2021-10-01 05:29] LABS: Hemoglobin 9.9 g/dL (12.0-16.0); Mean Corpuscular Hemoglobin 30.4 pg (25-34); Mean Corpuscular Hgb Conc 34.1 g/dL (32-36); Mean Platelet Volume 9.9 fL (7.4-10.4); Platelet Count 242 K/uL (130-400); RDW Coefficient of Variation 14.6 % (11.5-14.5); RDW Standard Deviation 47.5 fL (36.4-46.3); Red Blood Count 3.26 M/uL (4.2-5.4); White Blood Count 7.03 K/uL (4.8-10.8)
[2021-10-01 05:49] LABS: BUN Creatinine Ratio 15.3 (10-20); Calcium 9.3 mg/dl (8.5-10.1); Creatinine Clr Calc Pharmacy 10.9 ml/min; Est GFR (African American) 14.8 ml/min; Est GFR (Non-African American) 12.8 ml/min; Potassium 3.9 mmol/L (3.5-5.1)
[2021-10-01] MEDS: FAMOTIDINE 20 MG TAB PO SCH ×2 (05:55→20:20)
[2021-10-01 05:58] LABS: Partial Thromboplastin Ratio > 5.1
[2021-10-01 06:03] LABS: Partial Thromboplastin Time > 139.0 Seconds (21.0-31.0)
--- NOTE | 2021-10-01 06:43 | CT Scan Report ---
CT OF THE HEAD WITHOUT CONTRAST CLINICAL HISTORY: Headache. COMPARISON STUDY: Head CT March 31, 2020. CT DOSE: 537.48 mGy.cm TECHNIQUE: Helical axial images of the head were obtained without IV contrast. Automated exposure con trol was utilized for the study. A dose lowering technique was utilized adhering to the principles o f ALARA. FINDINGS: No acute intracranial hemorrhage, midline shift or mass effect is present. Prominence of th e extra-axial spaces is unchanged. The ventricular system is unremarkable. The basal cisterns are pat ent. No extra-axial collections are present. There are no findings to suggest acute dural sinus throm bosis or acute territorial infarct. No significant calvarial abnormalities are present. Visualized po rtions of the sinuses and mastoid air cells are clear. IMPRESSION: No acute intracranial findings. No change in appearance of the brain. ACT 112: Negative or not required by law. Electronically signed by: Dayo Peña M.D. 10/01/2021 6:42 AM
[2021-10-01] MEDS: BUDESONIDE 0.5 MG/2 ML VIAL (PULMICORT) INH SCH ×2 (07:15→20:08)
[2021-10-01] MEDS: LEVALBUTEROL HCL 1.25 MG/3 ML NEB INH SCH ×5 (07:15→21:51)
[2021-10-01 07:40] LABS: Partial Thromboplastin Ratio 1.3; Partial Thromboplastin Time 36.9 Seconds (21.0-31.0)
[2021-10-01] MEDS: NYSTATIN SUSP 500,000 U/5 ML UDC PO SCH ×2 (08:05→17:36)
[2021-10-01] MEDS ORDERED: HEPARIN SOD (PORCINE) 1000 UNIT/ML IV ONE ×2 (08:18→16:30)
[2021-10-01] MEDS: predniSONE 20 MG TAB PO SCH (09:49)
[2021-10-01] MEDS: ESCITALOPRAM OXALATE 10 MG TAB PO SCH (09:50)
[2021-10-01] MEDS: PANTOprazole 40 MG TAB PO SCH ×2 (09:50→16:41)
[2021-10-01] MEDS: guaiFENesin 600 MG TABCR PO SCH (09:50)
[2021-10-01] MEDS: carvediloL 12.5 MG TAB PO SCH ×2 (09:50→17:15)
[2021-10-01] MEDS: allopurinoL 100 MG TAB PO SCH (09:51)
[2021-10-01] MEDS: CALCITRIOL 0.25 MCG CAPSULE PO SCH (09:51)
[2021-10-01] MEDS: ACETAMINOPHEN 500 MG TAB PO SCH ×3 (09:51→20:22)
[2021-10-01] MEDS: AZELASTINE HCL 0.1% NASAL 200 SPRAYS/27,400 MCG BTL NS SCH ×2 (09:52→20:20)
[2021-10-01] MEDS: TRIAMCINOLONE ACET NASAL SPRAY 10.8ML BTL SCH ×2 (09:52→20:22)
[2021-10-01] MEDS: SODIUM CHLORIDE 0.65% NA SOLN 45 ML (OCEAN) SCH ×2 (09:52→20:21)
--- NOTE | 2021-10-01 09:55 | Nephrology Progress Note ---
Date of Service October 01, 2021 Assessment & Plan Admission and Anticipated Discharge Date Admission Date: September 24, 2021 Subjective Assessment & Plan (1) CARLO (acute kidney injury): Ischemic ATN In the setting of pulmonary embolism with double contrast exposure. her baseline creat 1.6 and was in [facility] in the ED even before contrast exposure but since then has gone up even more. Creat went further Down overnight. More urine now --1500 ml yesterday. Has some SOB. Na stable at 130 now. eating and drinking better now so no need of iv fluids. renal diet. No dialysis needed and seeing sustained good recovery now. CXR today to assess for Pulm congestion. Will decide about lasix after that. She will need lasix eventually. Will also ask Pharmacy about the Amoxicillin dosing Care co-ordinated with Dr Angulo. subjective----- feels weak and tired. Poor appetite and nausea. urine lot more. Physical Exam Physical Exam: General: awake, alert, in mild distress Head: Normocephalic, atraumatic ENT: PERRL, EOMI, no pharyngeal exudate, mucous membranes moist Chest: on room air, diminished breath sounds at bases Cardiac:, no murmur, no JVD, normal peripheral pulses, good capillary refill Abdominal: NABS x 4 quadrants, soft, nondistended, nontender to palpation, no rebound or guarding Extremities: + 1 pitting peripheral edema bilaterally Psych: Normal mood and affect Neuro: AAO x 3, strength intact bilaterally and rated 5/5, no motor deficits, speech is clear, no peripheral sensory deficits Results & Data ([facility]) Vital Signs (Past 12 Hours) Vital Signs Temp Pulse Pulse Pulse Resp BP Pulse Ox 10/01/21 09:41 36.6 C 64 18 118/58 L 99 10/01/21 07:16 66 16 98 10/01/21 03:01 68 135/60 10/01/21 00:29 36.5 C 76 20 97 10/01/21 00:00 76 09/30/21 22:55 136/84
[2021-10-01] MEDS: SUCRALFATE 1 GM/10 ML UDC PO SCH ×3 (11:00→20:19)
--- NOTE | 2021-10-01 11:16 | XRay Report ---
XR chest 1V portable HISTORY: Shortness of breath. Follow-up congestive heart failure. COMPARISON: Chest 09/24/2021. FINDINGS: No pneumothorax. There are low lung volumes. The heart remains enlarged. There is mild cent ral pulmonary vascular congestion without overt edema. This remains unchanged. Small left pleural eff usion and hazy left basilar densities have progressed. This may represent layering pleural fluid, ate lectasis, or developing pneumonia. IMPRESSION: 1. Small left pleural effusion and hazy left basilar densities have slightly progressed. This likely represents layering pleural fluid. Atelectasis or a developing pneumonia are considered less likely b ut not entirely excluded. Follow-up recommended to ensure resolution. 2. No change in the cardiomegaly and mild pulmonary vascular congestion. ACT 112: Negative or not required by law. Electronically signed by: Georges Toro M.D. 10/01/2021 11:15 AM
[2021-10-01 14:56] LABS: Partial Thromboplastin Ratio 1.2
[2021-10-01 16:17] LABS: Prothrombin Time 10.9 Seconds (9.0-12.0)
[2021-10-01] MEDS: FUROSEMIDE 40 MG TAB PO SCH (16:38)
[2021-10-01] MEDS: AMOXICILLIN 500 MG CAP PO SCH (16:40)
[2021-10-01] MEDS: WARFARIN SOD 3 MG TAB PO SCH (17:34)
[2021-10-01] MEDS ORDERED: traMADol HCL 50 MG TABLET PO PRN (18:38)
[2021-10-01] MEDS: ATORVASTATIN 40 MG TAB PO SCH (20:19)
[2021-10-01] MEDS: MONTELUKAST SODIUM 10 MG TABLET PO SCH (20:19)
[2021-10-01] MEDS: ISOSORBIDE MONO EXTENDED REL 60 MG TABCR PO SCH (20:19)
[2021-10-01] MEDS: FEXOFENADINE HCL 180 MG TAB PO SCH (20:20)
--- NOTE | 2021-10-01 21:26 | Hospitalist Progress Note ---
Date of Service October 01, 2021 Assessment & Plan (1) Bilateral pulmonary embolism: (2) DVT, bilateral lower limbs: Plan: Bilateral segmental PE with bilateral DVT LE, no heart strain- on tamoxifen for breast cancer which could be the culprit. 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 F/u with onc - 1st episode, hemodynamically stable, hypoxia stable on home oxygen - CTA chest-Segmental pulmonary emboli are seen without evidence of right heart strain. -US LE -bilateral DVTs - Start on heparin drip to see how she would tolerate given UGI bleed on coumadin back in May. If tolerates, can change to DOAC or coumadin. If does not tolerate, will need IVC filter. - Hold tamoxifen, follow up with oncology for further discussion -Remains stable and denies any acute chest pain and/or more shortness of breath -Echo of the heart showed-no significant change compared to previous study of 04/01/2020, normal LV size and wall thickness with EF 60 to 65%, no segmental wall motion abnormalities, grade 3 diastolic dysfunction consistent with restrictive physiology, RV size is normal, aortic sclerosis without stenosis -Appreciate cardiology input and recommended -PT/OT evaluation - Continue IV Heparin drip for now. Not sure if pt will be a candidate for the DOAC due to Acute renal failure, if not olvin consider to resume coumadin - Starting on coumadin 3mg Chronic hypoxic respiratory failure Moderate persistent asthma- not in acute exacerbation, continue home inhalers/nebs along with nystatin to prevent thrush Chronic hypoxic respiratory failure- on NC at 2 L at home, continue. 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 Increased cortical echogenicity bilaterally consistent with medical renal disease. Nephrology on board recommended hold on Lasix and IVF Losartan and Spironolactone on hold IVF discontinued by nephrology case discussed with nephrology that plan to start lasix 40mg daily Patient does not want dialysis, but daughter said that the family will discuss about dialysis Continue monitor renal function closely (4) Chronic diastolic (congestive) heart failure: Plan: Chronic diastolic CHF- looks compensated but she was given IVF in ED for dye load because of her CKD. Will give a dose of iv lasix tonight and continue home lasix 60 bid from tomorrow morning (takes at 9 am and 1 pm at home). continue daily weight, strict I and Os, check echo. Follows with cardio as OP. Will consult cardio as per daughter's request. 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 Continue synthroid at home dose. (8) GERD (gastroesophageal reflux disease): Plan: HTN- continue home meds with hold parameters DVT prophylaxis Dispo- PCU on tele Full code Admission and Anticipated Discharge Date Admission Date: September 24, 2021 Subjective Pt was seen and examined for follow up of PE/DVT and elevated creatinine Siting in chair with no acute distress with daughter at bedside Pt said that she feels much better Denies any chest pain, palpitation, dizziness fever and SOB Review of Systems Review of Systems: All systems reviewed & are unremarkable except as noted in Subjective Physical Exam Physical Exam: General- No acute distress Head- atraumatic Eyes- PERRL, EOMI, ENT- oropharynx clear Neck- supple, no JVD Lungs- faint wheezing Heart- regular rhythm; no murmur Abdomen- normal bowel sounds, soft, nontender Extremities- no calf tenderness, +edema Neuro- alert, oriented x 3; PERRL, EOMI; no facial palsy; no dysarthria Skin- warm & dry Results & Data Results & Data ([facility]) Vital Signs (Past 12 Hours) Vital Signs Temp Pulse Pulse Pulse Resp BP BP 10/01/21 20:10 62 16 10/01/21 19:00 37.0 C 63 16 138/78 10/01/21 17:05 37.3 C 76 18 128/68 10/01/21 15:00 74 16 10/01/21 14:20 67 10/01/21 12:17 37 C 71 20 122/58 L 10/01/21 11:13 64 16 10/01/21 09:41 36.6 C 64 18 118/58 L Pulse Ox 10/01/21 20:10 10/01/21 19:00 96 10/01/21 17:05 94 10/01/21 15:00 98 10/01/21 14:20 10/01/21 12:17 98 10/01/21 11:13 95 10/01/21 09:41 99
[2021-10-01] MEDS: MELATONIN 3 MG TAB PO PRN (22:22)
[2021-10-01 23:39] LABS: Partial Thromboplastin Ratio 1.4; Partial Thromboplastin Time 39.6 Seconds (21.0-31.0)
[2021-10-02] MEDS: LEVALBUTEROL HCL 1.25 MG/3 ML NEB INH SCH ×5 (05:23→19:09)
[2021-10-02] MEDS: LEVOTHYROXINE SODIUM 75 MCG TABLET PO SCH (05:53)
[2021-10-02] MEDS: BUDESONIDE 0.5 MG/2 ML VIAL (PULMICORT) INH SCH ×2 (07:24→19:10)
[2021-10-02] MEDS ORDERED: Nursing to Pharmacy Communication SCH (07:30)
[2021-10-02 07:51] LABS: Prothrombin Time 10.9 Seconds (9.0-12.0)
[2021-10-02 08:00] LABS: Hematocrit (blood only) 28.9 % (37-47); Hemoglobin 9.4 g/dL (12.0-16.0); Mean Corpuscular Hemoglobin 29.5 pg (25-34); Mean Corpuscular Hgb Conc 32.5 g/dL (32-36); Mean Corpuscular Volume 90.6 fL (80-100); Mean Platelet Volume 11.1 fL (7.4-10.4); Platelet Count 259 K/uL (130-400); RDW Coefficient of Variation 14.8 % (11.5-14.5); Red Blood Count 3.19 M/uL (4.2-5.4); White Blood Count 7.06 K/uL (4.8-10.8)
[2021-10-02 08:09] LABS: BUN Creatinine Ratio 17.9 (10-20); Calcium 9.3 mg/dl (8.5-10.1); Creatinine Clr Calc Pharmacy 14.2 ml/min; Est GFR (African American) 20.7 ml/min; Est GFR (Non-African American) 17.9 ml/min
[2021-10-02] MEDS: allopurinoL 100 MG TAB PO SCH (08:35)
[2021-10-02] MEDS: ACETAMINOPHEN 500 MG TAB PO SCH ×3 (08:36→20:24)
[2021-10-02] MEDS: FUROSEMIDE 40 MG TAB PO SCH (08:36)
[2021-10-02] MEDS: ESCITALOPRAM OXALATE 10 MG TAB PO SCH (08:36)
[2021-10-02] MEDS: PANTOprazole 40 MG TAB PO SCH ×2 (08:37→17:00)
[2021-10-02] MEDS: predniSONE 20 MG TAB PO SCH (08:37)
[2021-10-02] MEDS: FAMOTIDINE 20 MG TAB PO SCH ×2 (08:37→17:01)
[2021-10-02] MEDS: guaiFENesin 600 MG TABCR PO SCH (08:37)
[2021-10-02] MEDS: NYSTATIN SUSP 500,000 U/5 ML UDC PO SCH ×2 (08:37→20:26)
[2021-10-02] MEDS: SODIUM CHLORIDE 0.65% NA SOLN 45 ML (OCEAN) SCH ×2 (08:38→20:31)
[2021-10-02] MEDS: carvediloL 12.5 MG TAB PO SCH ×2 (08:38→17:02)
[2021-10-02] MEDS: TRIAMCINOLONE ACET NASAL SPRAY 10.8ML BTL SCH ×2 (08:38→20:35)
[2021-10-02] MEDS: AZELASTINE HCL 0.1% NASAL 200 SPRAYS/27,400 MCG BTL NS SCH ×2 (08:39→20:31)
--- NOTE | 2021-10-02 09:18 | Nephrology Progress Note ---
Date of Service October 02, 2021 Assessment & Plan (1) CARLO (acute kidney injury): Plan: Amrit BESS Ischemic ATN Creatinine is downtrending to 2.3 today from 3 yesterday. Patient made about 2 L and was net -1 L. -Continue Lasix 40 mg p.o. daily - Daily BMP,input and output. - no more contrast study for now. (2) Bilateral pulmonary embolism: Plan: Continue heparin drip per primary team Admission and Anticipated Discharge Date Admission Date: September 24, 2021 Subjective Seen in follow-up for acute kidney injury. She feels better. Still on oxygen. She was net -1 L. Creatinine downtrending Review of Systems Review of Systems: All other systems were reviewed and negative except as noted in HPI Physical Exam Physical Exam: General exam: Appears comfortable, no acute distress, on oxygen NC HEENT: Pupils are equal and reactive to light Neck: No JVD, neck is supple trachea is midline Respiratory system: Clear breath sounds bilaterally. Gastrointestinal: Abdomen is soft, non distended, non tender, bowel sounds are present CVS: Regular rate and rhythm. No murmurs, rubs or gallops Musculoskeletal: No joint or muscle tenderness Extremities: Non tender, 1+ edema, peripheral pulses are present Neuro: Oriented, no tremors, no focal neurological deficits Skin: No rashes Results & Data ([facility]) Vital Signs (Past 12 Hours) Vital Signs Temp Pulse Pulse Pulse Resp BP BP 10/02/21 09:00 68 140/72 10/02/21 07:25 59 L 16 10/02/21 07:03 36.5 C 82 21 181/80 H 10/02/21 05:23 63 24 10/02/21 04:59 36.6 C 65 20 140/98 10/01/21 23:00 37.0 C 65 16 128/76 10/01/21 22:20 64 Pulse Ox 10/02/21 09:00 10/02/21 07:25 98 10/02/21 07:03 98 10/02/21 05:23 97 10/02/21 04:59 97 10/01/21 23:00 97 10/01/21 22:20 Laboratory Results 10/02/21 06:26 10/02/21 06:26 WBC 7.06 RBC 3.19 L MCV 90.6 MCH 29.5 MCHC 32.5 RDW Std Deviation 49.0 H RDW Coeff of Chrissy 14.8 H Plt Count 259 MPV 11.1 H
[2021-10-02] MEDS: SUCRALFATE 1 GM/10 ML UDC PO SCH ×3 (11:14→20:35)
[2021-10-02 11:21] LABS: Partial Thromboplastin Ratio 1.3; Partial Thromboplastin Time 34.5 Seconds (21.0-31.0)
[2021-10-02] MEDS ORDERED: HEPARIN SOD (PORCINE) 1000 UNIT/ML IV ONE ×2 (12:22→13:15)
[2021-10-02] MEDS: AMOXICILLIN 500 MG CAP PO SCH ×2 (13:33→20:32)
[2021-10-02] MEDS: WARFARIN SOD 3 MG TAB PO SCH (16:25)
--- NOTE | 2021-10-02 17:40 | Hospitalist Progress Note ---
Date of Service October 02, 2021 Assessment & Plan (1) Bilateral pulmonary embolism: (2) DVT, bilateral lower limbs: Plan: Bilateral segmental PE with bilateral DVT LE, no heart strain- on tamoxifen for breast cancer which could be the culprit. 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 F/u with onc - 1st episode, hemodynamically stable, hypoxia stable on home oxygen - CTA chest-Segmental pulmonary emboli are seen without evidence of right heart strain. -US LE -bilateral DVTs - Start on heparin drip to see how she would tolerate given UGI bleed on coumadin back in May. If tolerates, can change to DOAC or coumadin. If does not tolerate, will need IVC filter. - Hold tamoxifen, follow up with oncology for further discussion -Remains stable and denies any acute chest pain and/or more shortness of breath -Echo of the heart showed-no significant change compared to previous study of 04/01/2020, normal LV size and wall thickness with EF 60 to 65%, no segmental wall motion abnormalities, grade 3 diastolic dysfunction consistent with restrictive physiology, RV size is normal, aortic sclerosis without stenosis -Appreciate cardiology input and recommended -PT/OT evaluation - Continue IV Heparin drip for now. Not sure if pt will be a candidate for the DOAC due to Acute renal failure, if not olvin consider to resume coumadin - Continue coumadin 3mg Chronic hypoxic respiratory failure Moderate persistent asthma- not in acute exacerbation, continue home inhalers/nebs along with nystatin to prevent thrush Chronic hypoxic respiratory failure- on NC at 2 L at home, continue. 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 Increased cortical echogenicity bilaterally consistent with medical renal disease. Nephrology on board recommended hold on Lasix and IVF Losartan and Spironolactone on hold IVF discontinued by nephrology case discussed with nephrology that plan to start lasix 40mg daily Patient does not want dialysis, but daughter said that the family will discuss about dialysis Continue monitor renal function closely (4) Chronic diastolic (congestive) heart failure: Plan: Chronic diastolic CHF- looks compensated but she was given IVF in ED for dye load because of her CKD. Will give a dose of iv lasix tonight and continue home lasix 60 bid from tomorrow morning (takes at 9 am and 1 pm at home). continue daily weight, strict I and Os, check echo. Follows with cardio as OP. Will consult cardio as per daughter's request. 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 Continue synthroid at home dose. (8) GERD (gastroesophageal reflux disease): Plan: HTN- continue home meds with hold parameters DVT prophylaxis Dispo- PCU on tele Full code Admission and Anticipated Discharge Date Admission Date: September 24, 2021 Subjective Pt was seen and examined for follow up of PE/DVT and elevated creatinine Siting in chair with no acute distress with daughter at bedside Denies any chest pain, palpitation, dizziness fever and SOB Review of Systems Review of Systems: All systems reviewed & are unremarkable except as noted in Subjective Physical Exam Physical Exam: General- No acute distress Head- atraumatic Eyes- PERRL, EOMI, ENT- oropharynx clear Neck- supple, no JVD Lungs- faint wheezing Heart- regular rhythm; no murmur Abdomen- normal bowel sounds, soft, nontender Extremities- no calf tenderness, +edema Neuro- alert, oriented x 3; PERRL, EOMI; no facial palsy; no dysarthria Skin- warm & dry Results & Data Results & Data ([facility]) Vital Signs (Past 12 Hours) Vital Signs Temp Pulse Pulse Resp BP Pulse Ox 10/02/21 15:48 37.0 C 68 19 132/68 98 10/02/21 15:36 63 10/02/21 15:07 70 18 98 10/02/21 11:56 37.4 C 64 21 136/70 100 10/02/21 10:51 85 16 96 10/02/21 09:00 68 140/72 10/02/21 08:00 63 10/02/21 07:25 59 L 16 98 10/02/21 07:03 36.5 C 82 21 181/80 H 98
[2021-10-02] MEDS: HEPARIN SODIUM/DEXTROSE 25,000 UNITS/500 ML BAG IV SCH ×2 (17:55→21:01)
[2021-10-02 20:01] LABS: Partial Thromboplastin Ratio 1.9
[2021-10-02 20:18] LABS: Partial Thromboplastin Time 53.4 Seconds (21.0-31.0)
[2021-10-02] MEDS: ATORVASTATIN 40 MG TAB PO SCH (20:32)
[2021-10-02] MEDS: FEXOFENADINE HCL 180 MG TAB PO SCH (20:32)
[2021-10-02] MEDS: ASCORBIC ACID 500 MG TAB PO SCH (20:32)
[2021-10-02] MEDS: MONTELUKAST SODIUM 10 MG TABLET PO SCH (20:32)
[2021-10-02] MEDS: ISOSORBIDE MONO EXTENDED REL 60 MG TABCR PO SCH (20:34)
[2021-10-02] MEDS: FERROUS SULFATE 325 MG TAB PO SCH (20:34)
[2021-10-02] MEDS: MELATONIN 3 MG TAB PO PRN (20:59)
[2021-10-03] MEDS: LEVOTHYROXINE SODIUM 150 MCG TABLET PO SCH (05:55)
[2021-10-03 06:57] LABS: BUN Creatinine Ratio 21.7 (10-20); Calcium 9.1 mg/dl (8.5-10.1); Creatinine Clr Calc Pharmacy 17.9 ml/min; Est GFR (African American) 27.7 ml/min; Est GFR (Non-African American) 23.9 ml/min; Potassium 3.3 mmol/L (3.5-5.1)
[2021-10-03] MEDS: NYSTATIN SUSP 500,000 U/5 ML UDC PO SCH ×2 (07:13→19:55)
[2021-10-03] MEDS: SODIUM CHLORIDE 0.65% NA SOLN 45 ML (OCEAN) SCH ×2 (07:13→20:20)
[2021-10-03] MEDS: carvediloL 12.5 MG TAB PO SCH ×2 (07:14→16:04)
[2021-10-03] MEDS: allopurinoL 100 MG TAB PO SCH (07:14)
[2021-10-03] MEDS: AZELASTINE HCL 0.1% NASAL 200 SPRAYS/27,400 MCG BTL NS SCH ×2 (07:14→20:20)
[2021-10-03] MEDS: AMOXICILLIN 500 MG CAP PO SCH ×2 (07:15→20:19)
[2021-10-03] MEDS: ASCORBIC ACID 500 MG TAB PO SCH (07:15)
[2021-10-03] MEDS: guaiFENesin 600 MG TABCR PO SCH (07:15)
[2021-10-03 07:16] LABS: INR 1.3 (0.9-1.1); Prothrombin Time 13.9 Seconds (9.0-12.0)
[2021-10-03] MEDS: FUROSEMIDE 40 MG TAB PO SCH (07:16)
[2021-10-03] MEDS: FAMOTIDINE 20 MG TAB PO SCH ×2 (07:17→16:02)
[2021-10-03] MEDS: BUDESONIDE 0.5 MG/2 ML VIAL (PULMICORT) INH SCH ×2 (07:17→19:33)
[2021-10-03] MEDS: LEVALBUTEROL HCL 1.25 MG/3 ML NEB INH SCH ×4 (07:17→19:31)
[2021-10-03] MEDS: PANTOprazole 40 MG TAB PO SCH ×2 (07:18→16:03)
[2021-10-03] MEDS: ESCITALOPRAM OXALATE 10 MG TAB PO SCH (07:18)
[2021-10-03] MEDS: FERROUS SULFATE 325 MG TAB PO SCH (07:18)
[2021-10-03] MEDS: ACETAMINOPHEN 500 MG TAB PO SCH ×3 (07:18→20:19)
[2021-10-03] MEDS: predniSONE 20 MG TAB PO SCH (07:19)
[2021-10-03] MEDS: TRIAMCINOLONE ACET NASAL SPRAY 10.8ML BTL SCH ×2 (07:19→20:21)
[2021-10-03] MEDS: DOCUSATE SODIUM 100 MG CAP PO PRN (07:22)
[2021-10-03 07:27] LABS: Partial Thromboplastin Time 55.5 Seconds (21.0-31.0)
[2021-10-03] MEDS ORDERED: POTASSIUM CHLORIDE CRTAB 20 MEQ TABCR PO STA ×2 (08:32→14:03)
[2021-10-03] MEDS ORDERED: FERROUS FUMARATE/ASCORBIC ACID 65 MG CAPCR PO SCH (09:00)
[2021-10-03 09:51] LABS: Hematocrit (blood only) 28.5 % (37-47); Hemoglobin 9.5 g/dL (12.0-16.0)
[2021-10-03] MEDS: SUCRALFATE 1 GM/10 ML UDC PO SCH ×3 (11:30→20:20)
--- NOTE | 2021-10-03 14:08 | Nephrology Progress Note ---
Date of Service October 03, 2021 Assessment & Plan (1) CARLO (acute kidney injury): Plan: Amrit BESS Ischemic ATN Creatinine is downtrending to 1.8 today from 2.3 yesterday. k 3.3. Patient made about 1 L and was net even. -increase Lasix 60 mg p.o. twice daily -Will give kcl 40meq extra today - Daily BMP,input and output. - no more contrast study for now. (2) Bilateral pulmonary embolism: Plan: Continue heparin drip per primary team Admission and Anticipated Discharge Date Admission Date: September 24, 2021 Subjective Seen for CARLO and volume overload. She feels better. Main complaint is leg swelling. Breathing has improved. Creatinine downtrending 1.8. Review of Systems Review of Systems: All other systems were reviewed and negative except as noted in HPI Physical Exam Physical Exam: General exam: Appears comfortable, no acute distress, on oxygen NC HEENT: Pupils are equal and reactive to light Neck: No JVD, neck is supple trachea is midline Respiratory system: Clear breath sounds bilaterally. Gastrointestinal: Abdomen is soft, non distended, non tender, bowel sounds are present CVS: Regular rate and rhythm. No murmurs, rubs or gallops Musculoskeletal: No joint or muscle tenderness Extremities: Non tender, 1+ edema, peripheral pulses are present Neuro: Oriented, no tremors, no focal neurological deficits Skin: No rashes Results & Data ([facility]) Vital Signs (Past 12 Hours) Vital Signs Temp Pulse Pulse Resp BP BP Pulse Ox 10/03/21 10:45 72 16 98 10/03/21 07:30 36.9 C 62 20 144/80 H 98 10/03/21 07:17 65 20 97 10/03/21 07:00 54 L 10/03/21 03:25 37.1 C 63 16 166/88 H 96 Laboratory Results 10/03/21 05:52
[2021-10-03] MEDS: WARFARIN SOD 3 MG TAB PO SCH (16:03)
[2021-10-03] MEDS: FUROSEMIDE 20 MG TAB PO SCH (16:04)
--- NOTE | 2021-10-03 18:29 | Hospitalist Progress Note ---
Date of Service October 03, 2021 Assessment & Plan (1) Bilateral pulmonary embolism: (2) DVT, bilateral lower limbs: Plan: Bilateral segmental PE with bilateral DVT LE, no heart strain- on tamoxifen for breast cancer which could be the culprit. 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 F/u with onc - 1st episode, hemodynamically stable, hypoxia stable on home oxygen - CTA chest-Segmental pulmonary emboli are seen without evidence of right heart strain. -US LE -bilateral DVTs - Start on heparin drip to see how she would tolerate given UGI bleed on coumadin back in May. If tolerates, can change to DOAC or coumadin. If does not tolerate, will need IVC filter. - Hold tamoxifen, follow up with oncology for further discussion -Remains stable and denies any acute chest pain and/or more shortness of breath -Echo of the heart showed-no significant change compared to previous study of 04/01/2020, normal LV size and wall thickness with EF 60 to 65%, no segmental wall motion abnormalities, grade 3 diastolic dysfunction consistent with restrictive physiology, RV size is normal, aortic sclerosis without stenosis -Appreciate cardiology input and recommended -PT/OT evaluation - Continue IV Heparin drip for now. Not sure if pt will be a candidate for the DOAC due to Acute renal failure, if not olvin consider to resume coumadin - Continue coumadin 3mg, INR 1.3 today Chronic hypoxic respiratory failure Moderate persistent asthma- not in acute exacerbation, continue home inhalers/nebs along with nystatin to prevent thrush Chronic hypoxic respiratory failure- on NC at 2 L at home, continue. 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 Increased cortical echogenicity bilaterally consistent with medical renal disease. Nephrology on board recommended hold on Lasix and IVF Losartan and Spironolactone on hold IVF discontinued by nephrology Patient does not want dialysis, but daughter said that the family will discuss about dialysis Creatinine is near baseline Lasix increased to 60mg BID Continue monitor renal function closely (4) Chronic diastolic (congestive) heart failure: Plan: Chronic diastolic CHF- looks compensated but she was given IVF in ED for dye load because of her CKD. Will give a dose of iv lasix tonight and continue home lasix 60 bid from tomorrow morning (takes at 9 am and 1 pm at home). continue daily weight, strict I and Os, check echo. Follows with cardio as OP. Will consult cardio as per daughter's request. 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 Continue synthroid at home dose. (8) GERD (gastroesophageal reflux disease): Plan: HTN- continue home meds with hold parameters DVT prophylaxis Dispo- PCU on tele Full code Admission and Anticipated Discharge Date Admission Date: September 24, 2021 Subjective Pt was seen and examined for follow up of PE/DVT and elevated creatinine Siting in chair with no acute distress with daughter at bedside She said that she is having tenderness in her left ankle Denies any chest pain, palpitation, dizziness fever and SOB Review of Systems Review of Systems: All systems reviewed & are unremarkable except as noted in Subjective Physical Exam Physical Exam: General- No acute distress Head- atraumatic Eyes- PERRL, EOMI, ENT- oropharynx clear Neck- supple, no JVD Lungs- faint wheezing Heart- regular rhythm; no murmur Abdomen- normal bowel sounds, soft, nontender Extremities- no calf tenderness, +edema Neuro- alert, oriented x 3; PERRL, EOMI; no facial palsy; no dysarthria Skin- warm & dry Results & Data Results & Data ([facility]) Vital Signs (Past 12 Hours) Vital Signs Temp Pulse Pulse Resp BP BP Pulse Ox 10/03/21 15:41 36.6 C 68 20 142/80 H 94 10/03/21 14:57 75 17 97 10/03/21 14:56 66 10/03/21 12:20 36.8 C 64 20 142/74 H 97 10/03/21 10:45 72 16 98 10/03/21 07:30 36.9 C 62 20 144/80 H 98 10/03/21 07:17 65 20 97 10/03/21 07:00 54 L
[2021-10-03] MEDS: ATORVASTATIN 40 MG TAB PO SCH (20:19)
[2021-10-03] MEDS: MONTELUKAST SODIUM 10 MG TABLET PO SCH (20:19)
[2021-10-03] MEDS: FEXOFENADINE HCL 180 MG TAB PO SCH (20:19)
[2021-10-03] MEDS: ISOSORBIDE MONO EXTENDED REL 60 MG TABCR PO SCH (20:20)
[2021-10-03] MEDS: MELATONIN 3 MG TAB PO PRN (20:31)
[2021-10-04] MEDS: LEVOTHYROXINE SODIUM 75 MCG TABLET PO SCH (06:30)
[2021-10-04] MEDS: BUDESONIDE 0.5 MG/2 ML VIAL (PULMICORT) INH SCH ×2 (06:54→19:11)
[2021-10-04] MEDS: LEVALBUTEROL HCL 1.25 MG/3 ML NEB INH SCH ×4 (06:54→19:11)
[2021-10-04] MEDS: DOCUSATE SODIUM 100 MG CAP PO PRN (07:38)
[2021-10-04] MEDS: HEPARIN SODIUM/DEXTROSE 25,000 UNITS/500 ML BAG IV SCH (07:38)
[2021-10-04] MEDS: FUROSEMIDE 20 MG TAB PO SCH ×2 (07:38→16:47)
[2021-10-04] MEDS: ESCITALOPRAM OXALATE 10 MG TAB PO SCH (07:39)
[2021-10-04] MEDS: carvediloL 12.5 MG TAB PO SCH ×2 (07:39→16:48)
[2021-10-04] MEDS: PANTOprazole 40 MG TAB PO SCH ×2 (07:39→16:47)
[2021-10-04] MEDS: ACETAMINOPHEN 500 MG TAB PO SCH ×3 (07:39→20:24)
[2021-10-04] MEDS: NYSTATIN SUSP 500,000 U/5 ML UDC PO SCH ×2 (07:39→20:28)
[2021-10-04] MEDS: allopurinoL 100 MG TAB PO SCH (07:40)
[2021-10-04] MEDS: FAMOTIDINE 20 MG TAB PO SCH ×2 (07:40→20:25)
[2021-10-04] MEDS: ASCORBIC ACID 500 MG TAB PO SCH (07:40)
[2021-10-04] MEDS: FERROUS SULFATE 325 MG TAB PO SCH (07:40)
[2021-10-04] MEDS: guaiFENesin 600 MG TABCR PO SCH (07:41)
[2021-10-04] MEDS: AMOXICILLIN 500 MG CAP PO SCH ×2 (07:41→20:27)
[2021-10-04] MEDS: predniSONE 20 MG TAB PO SCH (07:41)
[2021-10-04] MEDS: AZELASTINE HCL 0.1% NASAL 200 SPRAYS/27,400 MCG BTL NS SCH ×2 (07:41→20:29)
[2021-10-04] MEDS: CALCITRIOL 0.25 MCG CAPSULE PO SCH (07:42)
[2021-10-04] MEDS: TRIAMCINOLONE ACET NASAL SPRAY 10.8ML BTL SCH ×2 (07:42→20:29)
[2021-10-04] MEDS: SODIUM CHLORIDE 0.65% NA SOLN 45 ML (OCEAN) SCH ×2 (07:42→20:29)
[2021-10-04 07:46] LABS: Partial Thromboplastin Ratio 2.1; Prothrombin Time 20.3 Seconds (9.0-12.0)
[2021-10-04 07:50] LABS: BUN Creatinine Ratio 21.4 (10-20); Calcium 9.6 mg/dl (8.5-10.1); Creatinine Clr Calc Pharmacy 18.9 ml/min; Est GFR (African American) 29.8 ml/min; Est GFR (Non-African American) 25.7 ml/min; Potassium 3.6 mmol/L (3.5-5.1)
[2021-10-04 07:56] LABS: Partial Thromboplastin Time 58.9 Seconds (21.0-31.0)
[2021-10-04] MEDS ORDERED: POTASSIUM CHLORIDE CRTAB 20 MEQ TABCR PO ONE (08:05)
--- NOTE | 2021-10-04 08:08 | Nephrology Progress Note ---
Date of Service October 04, 2021 Assessment & Plan (1) CARLO (acute kidney injury): Plan: improving Stage 3 CARLO on CKD 4 from contrast induced nephropathy and ATN. still on 02 and still w/ marked BLE edema, though DVT may contribute as well Creatinine is plateau'd at 1.7 today from 2.3 on 10/02. k 3.6. Patient 2.7L negative. -cont increased Lasix 60 mg p.o. twice daily w/ last dose 1700 -started K 20 mEq bid AND wrote for extra 20 mEQ dose this am as well - Daily BMP, input and output. ->standing weights only - no more contrast studies for now (2) Bilateral pulmonary embolism: Plan: Continue heparin drip per primary team Admission and Anticipated Discharge Date Admission Date: September 24, 2021 Subjective remains on heparin gtt and 02NC (but at baseline 02 now); no c/o pain or thirst. still some sob. some generalized weakness; thinks edema may be a bit better Review of Systems Review of Systems: All systems reviewed & are unremarkable except as noted in Subjective Physical Exam Constitutional: well developed, well nourished, + frail appearing and cooperative; no acute distress Eyes: EOM intact bilaterally ENMT: Ears: no external ear abnormality Nose: no external nose abnormality Mouth: + dry oral mucous membranes Neck: no nuchal rigidity Respiratory: normal respiratory effort Auscultation: + diminished lung sounds (L base) Cardiovascular: Rate/Rhythm: regular rate and regular rhythm Extremities: + edema (2+ BL ankles) Gastrointestinal (Abdomen): Inspection/Auscultation: normal bowel sounds Percussion/Palpation: abdomen soft; abdomen nontender Musculoskeletal: Extremities: + abnormal strength (generalized weakness) Skin: no rashes, warm and dry Neurologic: marrufo, fluent speech, no tremor Psychiatric: Orientation: oriented to person and oriented to place Results & Data ([facility]) Vital Signs (Past 12 Hours) Vital Signs Temp Pulse Pulse Resp BP Pulse Ox 10/04/21 07:47 36.7 C 63 20 146/86 H 97 10/04/21 07:00 63 10/04/21 06:56 60 16 97 10/04/21 03:30 36.7 C 66 18 152/96 H 95 10/04/21 00:00 36.5 C 63 12 140/86 99 05/22/22 22:30 61 Laboratory Results 10/03/21 05:54 10/04/21 06:13
[2021-10-04] MEDS: POTASSIUM CHLORIDE CRTAB 20 MEQ TABCR PO SCH ×2 (09:29→20:26)
[2021-10-04] MEDS: SUCRALFATE 1 GM/10 ML UDC PO SCH ×3 (11:06→20:26)
[2021-10-04] MEDS: WARFARIN SOD 3 MG TAB PO SCH (16:46)
--- NOTE | 2021-10-04 17:34 | Hospitalist Progress Note ---
Date of Service October 04, 2021 Assessment & Plan (1) Bilateral pulmonary embolism: (2) DVT, bilateral lower limbs: Plan: Bilateral segmental PE with bilateral DVT LE, no heart strain- on tamoxifen for breast cancer which could be the culprit. 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 F/u with onc - 1st episode, hemodynamically stable, hypoxia stable on home oxygen - CTA chest-Segmental pulmonary emboli are seen without evidence of right heart strain. -US LE -bilateral DVTs - Start on heparin drip to see how she would tolerate given UGI bleed on coumadin back in May. If tolerates, can change to DOAC or coumadin. If does not tolerate, will need IVC filter. - Hold tamoxifen, follow up with oncology for further discussion -Remains stable and denies any acute chest pain and/or more shortness of breath -Echo of the heart showed-no significant change compared to previous study of 04/01/2020, normal LV size and wall thickness with EF 60 to 65%, no segmental wall motion abnormalities, grade 3 diastolic dysfunction consistent with restrictive physiology, RV size is normal, aortic sclerosis without stenosis -Appreciate cardiology input and recommended -Case discussed with hematology Dr. Stone that agreed to discontinue the IV heparin drip since pt had history of GI bleed and due to her age. Will not bridge for 5 days with coumadin or 2 consecutive INR. -IV heparin drip discontinued today - Continue coumadin 3mg, INR 2 today Chronic hypoxic respiratory failure Moderate persistent asthma- not in acute exacerbation, continue home inhalers/nebs along with nystatin to prevent thrush Chronic hypoxic respiratory failure- on NC at 2 L at home, continue. 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 Increased cortical echogenicity bilaterally consistent with medical renal disease. Continue to hold Losartan and Spironolactone Nephrology on board Patient does not want dialysis, but daughter said that the family will discuss about dialysis Creatinine is near baseline at 1.7 today Continue Lasix 60mg BID Continue monitor BMP (4) Chronic diastolic (congestive) heart failure: Plan: Chronic diastolic CHF- looks compensated but she was given IVF in ED for dye load because of her CKD. Will give a dose of iv lasix tonight and continue home lasix 60 bid from tomorrow morning (takes at 9 am and 1 pm at home). continue daily weight, strict I and Os, check echo. Follows with cardio as OP. Will consult cardio as per daughter's request. 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 Continue synthroid at home dose. (8) GERD (gastroesophageal reflux disease): Plan: HTN- continue home meds with hold parameters DVT prophylaxis Dispo- PCU on tele Full code Admission and Anticipated Discharge Date Admission Date: September 24, 2021 Subjective Pt was seen and examined for follow up of PE/DVT and elevated creatinine Siting in chair with no acute distress with daughter at bedside She was able to walk with the walker to the bathroom with no distress She said that she is not having any ankle pain Denies any chest pain, palpitation, dizziness fever and SOB Review of Systems Review of Systems: All systems reviewed & are unremarkable except as noted in Subjective Physical Exam Physical Exam: General- No acute distress Head- atraumatic Eyes- PERRL, EOMI, ENT- oropharynx clear Neck- supple, no JVD Lungs- faint wheezing Heart- regular rhythm; no murmur Abdomen- normal bowel sounds, soft, nontender Extremities- no calf tenderness, +edema Neuro- alert, oriented x 3; PERRL, EOMI; no facial palsy; no dysarthria Skin- warm & dry Results & Data Results & Data ([facility]) Vital Signs (Past 12 Hours) Vital Signs Temp Pulse Pulse Resp BP BP Pulse Ox 10/04/21 16:41 36.6 C 74 18 130/76 98 10/04/21 16:02 70 10/04/21 15:43 72 20 97 10/04/21 12:49 36.8 C 73 18 126/66 96 10/04/21 11:11 62 18 100 10/04/21 07:47 36.7 C 63 20 146/86 H 97 10/04/21 07:00 63 10/04/21 06:56 60 16 97
[2021-10-04] MEDS: MELATONIN 3 MG TAB PO PRN (20:24)
[2021-10-04] MEDS: MONTELUKAST SODIUM 10 MG TABLET PO SCH (20:27)
[2021-10-04] MEDS: ISOSORBIDE MONO EXTENDED REL 60 MG TABCR PO SCH (20:27)
[2021-10-04] MEDS: ATORVASTATIN 40 MG TAB PO SCH (20:28)
[2021-10-04] MEDS: FEXOFENADINE HCL 180 MG TAB PO SCH (20:28)
[2021-10-05] MEDS: LEVOTHYROXINE SODIUM 150 MCG TABLET PO SCH (05:43)
[2021-10-05 06:31] LABS: Partial Thromboplastin Ratio 1.1
[2021-10-05] MEDS: BUDESONIDE 0.5 MG/2 ML VIAL (PULMICORT) INH SCH (07:00)
[2021-10-05] MEDS: LEVALBUTEROL HCL 1.25 MG/3 ML NEB INH SCH ×3 (07:00→15:42)
[2021-10-05] MEDS: PANTOprazole 40 MG TAB PO SCH (08:49)
[2021-10-05] MEDS: FUROSEMIDE 20 MG TAB PO SCH (08:49)
[2021-10-05] MEDS: carvediloL 12.5 MG TAB PO SCH (08:49)
[2021-10-05] MEDS: ESCITALOPRAM OXALATE 10 MG TAB PO SCH (08:49)
[2021-10-05] MEDS: ACETAMINOPHEN 500 MG TAB PO SCH (08:50)
[2021-10-05] MEDS: FERROUS SULFATE 325 MG TAB PO SCH (08:50)
[2021-10-05] MEDS: guaiFENesin 600 MG TABCR PO SCH (08:50)
[2021-10-05] MEDS: predniSONE 20 MG TAB PO SCH (08:50)
[2021-10-05] MEDS: NYSTATIN SUSP 500,000 U/5 ML UDC PO SCH (08:50)
[2021-10-05] MEDS: allopurinoL 100 MG TAB PO SCH (08:50)
[2021-10-05] MEDS: AMOXICILLIN 500 MG CAP PO SCH (08:50)
[2021-10-05] MEDS: SODIUM CHLORIDE 0.65% NA SOLN 45 ML (OCEAN) SCH (08:51)
[2021-10-05] MEDS: AZELASTINE HCL 0.1% NASAL 200 SPRAYS/27,400 MCG BTL NS SCH (08:51)
[2021-10-05] MEDS: ASCORBIC ACID 500 MG TAB PO SCH (08:51)
[2021-10-05] MEDS: FAMOTIDINE 20 MG TAB PO SCH (08:52)
[2021-10-05] MEDS: POTASSIUM CHLORIDE CRTAB 20 MEQ TABCR PO SCH (08:52)
[2021-10-05] MEDS: TRIAMCINOLONE ACET NASAL SPRAY 10.8ML BTL SCH (08:52)
[2021-10-05 08:58] LABS: INR 3.4 (0.9-1.1); Prothrombin Time 34.3 Seconds (9.0-12.0)
[2021-10-05 09:08] LABS: BUN Creatinine Ratio 21.8 (10-20); Calcium 9.4 mg/dl (8.5-10.1); Creatinine Clr Calc Pharmacy 19.6 ml/min; Est GFR (African American) 30.5 ml/min; Est GFR (Non-African American) 26.3 ml/min; Potassium 3.6 mmol/L (3.5-5.1)
--- NOTE | 2021-10-05 10:22 | Nephrology Progress Note ---
Date of Service October 05, 2021 Assessment & Plan (1) CARLO (acute kidney injury): Plan: improving Stage 3 CARLO on CKD 4 from contrast induced nephropathy and ATN. still on and still w/ marked BLE edema, though DVT may contribute as well Creatinine remains plateau'd at 1.7 today from 2.3 on 10/02. k 4.6. Patient 1.9L negative yesterday -cont Lasix 60 mg p.o. twice daily w/ last dose of day 1699 -lowered dose of K 20 mEq bid to bid 10 mEq but may well need higher dose - Daily BMP, input and output. ->standing weights only - no more contrast studies for now NEPHRO DISCHARGE recs -bmp late 10/07 or early 10/08 to be ordered by nephro RN and bmp 10/12 also to be ordered by nephro RN -hospital discharge appt with me within 1-2 weeks -d/c on 1 dose losartan (25 mg hs) but do restart spironolactone 12.5 mg daily at d/c -cont current lasix, K doses which are customary OP doses -if she was on fluid limit prior to admission, should resume it > if not on fluid limit prior to admission, recommend 40-60 oz daily Care coordinated w/ Dr Angulo and d/w eneida (2) Labile hypertension: Plan: on losartan 50 mg daily as OP; SBP ranging 120-160s past 48 hrs despite addition of lasix; -resume 25 mg daily losartan -cont lasix, coreg current doses (3) Bilateral pulmonary embolism: Plan: off of heparin drip now Admission and Anticipated Discharge Date Admission Date: September 24, 2021 Subjective had OK night - woke about 2; no sob; feels edema improving; legs sore if too much pressure on them; no palpitations or chest discomfort; no voiding concerns; tolerating po Review of Systems Review of Systems: All systems reviewed & are unremarkable except as noted in Subjective Physical Exam Constitutional: well developed, well nourished, + frail appearing and cooperative; no acute distress up in chair on RA Eyes: EOM intact bilaterally ENMT: Ears: no external ear abnormality Nose: no external nose abnormality Mouth: + dry oral mucous membranes Neck: no nuchal rigidity Respiratory: normal respiratory effort Auscultation: + diminished lung sounds Cardiovascular: Rate/Rhythm: regular rate and regular rhythm Extremities: + edema (2+ L and 1+ R ankles) Gastrointestinal (Abdomen): Inspection/Auscultation: normal bowel sounds Percussion/Palpation: abdomen soft; abdomen nontender Musculoskeletal: Extremities: + abnormal strength (generalized weakness) Skin: no rashes, warm and dry Neurologic: marrufo, fluent speech, no tremor Psychiatric: Orientation: oriented to person and oriented to place Results & Data ([facility]) Vital Signs (Past 12 Hours) Vital Signs Temp Pulse Pulse Pulse Resp BP Pulse Ox 10/05/21 07:28 57 L 10/05/21 07:00 70 18 97 10/05/21 04:00 36.6 C 55 L 18 168/80 H 99 10/04/21 23:04 62 Laboratory Results 10/03/21 05:54 10/05/21 08:20 Diagnostic Findings CXR 10/01 No pneumothorax. There are low lung volumes. The heart remains enlarged. There is mild central pulmonary vascular congestion without overt edema. This remains unchanged. Small left pleural effusion and hazy left basilar densities have progressed. This may represent layering pleural fluid, atelectasis, or developing pneumonia. IMPRESSION: 1. Small left pleural effusion and hazy left basilar densities have slightly progressed. This likely represents layering pleural fluid. Atelectasis or a developing pneumonia are considered less likely but not entirely excluded. Follow-up recommended to ensure resolution. 2. No change in the cardiomegaly and mild pulmonary vascular congestion.
[2021-10-05] MEDS ORDERED: LOSARTAN POTASSIUM 25 MG TAB PO SCH (10:45)
[2021-10-05] MEDS: SUCRALFATE 1 GM/10 ML UDC PO SCH (11:44)
--- NOTE | 2021-10-05 14:36 | Discharge Summary ---
Date of Service October 05, 2021 Admission HPI Per Admitting Provider 89 year old female with h/p PAF off of anticoag coumadin since 05/2021 due to UGI bleed, chronic diastolic CHF, moderate persistent asthma, hypertension, CKD4, h/o thyroid cancer, hypothyroidism, hyperparathyroidism who presented to the ED with leg pain, upper abd discomfort and palpitations for the past 2-3 days. Family doctor started her on gabapentin which they have not started yet. Daughter was not convinced and thought she had clots and brought to the ED for evaluation. In the ED, she had CTA chest which showed bilateral segmental PE. US LE showed bilateral DVT. This is her first VTE episode, She is on her home oxygen, at baseline here. She was on coumadin for A fib which was taken off in May due to UGI bleed. She is on tamoxifen for her breast cancer. She is hemodynamically stable, not short of breath, dizzy. She denies any issues to me during my encounter. Daughter says she does not ambulate much. Daughter at bedside provided most of history and helped me go through all the medications. She wanted cardiology to be involved in her care. Discharge Exam General- No acute distress Head- atraumatic Eyes- PERRL, EOMI, ENT- oropharynx clear Neck- supple, no JVD Lungs- faint wheezing Heart- regular rhythm; no murmur Abdomen- normal bowel sounds, soft, nontender Extremities- no calf tenderness, +edema Neuro- alert, oriented x 3; PERRL, EOMI; no facial palsy; no dysarthria Skin- warm & dry Discharge Data 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, 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 sulfamethoxazole Allergy Mild RASH Verified 09/24/21 15:27 trimethoprim Allergy Mild RASH Verified 09/24/21 15:27 amlodipine Allergy legs swell Verified 09/24/21 15:27 severe azithromycin Allergy Unknown Verified 05/13/22 15:27 cefuroxime [From Ceftin] Allergy Diarrhea Verified 09/24/21 15:27 ipratropium Allergy Anaphylaxis Verified 09/24/21 15:27 Sulfa (Sulfonamide Allergy Difficulty Verified 09/24/21 15:27 Antibiotics) Breathing Consultations 09/24/21 16:44 ED Decision to Admit Stat 09/24/21 18:22 Consult Cardiology Routine 09/26/21 08:26 Consult Nephrology Routine Ordered Studies 09/24/21 10:47 CT abd pelvis IV con only Stat 09/24/21 14:50 CT angio chest PE protocol Stat 09/24/21 16:50 US venous doppler LE BI Routine 09/26/21 08:27 US renal/blad retro comp Routine 09/30/21 23:42 CT head/brain wo con Urgent Hospital Course (1) Bilateral pulmonary embolism: (2) DVT, bilateral lower limbs: Bilateral segmental PE with bilateral DVT LE, no heart strain- on tamoxifen for breast cancer which could be the culprit. 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 F/u with onc - 1st episode, hemodynamically stable, hypoxia stable on home oxygen - CTA chest-Segmental pulmonary emboli are seen without evidence of right heart strain. -US LE -bilateral DVTs - Start on heparin drip to see how she would tolerate given UGI bleed on coumadin back in May. If tolerates, can change to DOAC or coumadin. If does not tolerate, will need IVC filter. - Hold tamoxifen, follow up with oncology for further discussion -Remains stable and denies any acute chest pain and/or more shortness of breath -Echo of the heart showed-no significant change compared to previous study of 04/01/2020, normal LV size and wall thickness with EF 60 to 65%, no segmental wall motion abnormalities, grade 3 diastolic dysfunction consistent with restrictive physiology, RV size is normal, aortic sclerosis without stenosis -Appreciate cardiology input and recommended -Case discussed with hematology Dr. Stone that agreed to discontinue the IV heparin drip since pt had history of GI bleed and due to her age. Will not bridge for 5 days with coumadin or 2 consecutive INR. -IV heparin drip discontinued today - Continue coumadin 3mg, INR 2 today Chronic hypoxic respiratory failure Moderate persistent asthma- not in acute exacerbation, continue home inhalers/nebs along with nystatin to prevent thrush Chronic hypoxic respiratory failure- on NC at 2 L at home, continue. Daughter requested her amoxicillin to resume Due to her renal failure failure, pharmacy dose the amoxicillin to 500mg daily Stable (3) CARLO (acute kidney injury): CARLO on CKD4- baseline Cr seems to be 1.2-1.6, currently creatinine 1.7 today Mostly due to ATN in the setting of acute illness and contrast induced nephropathy Renal u/s showed no hydronephrosis. Increased cortical echogenicity bilaterally consistent with medical renal disease. Continue to hold Losartan and Spironolactone Nephrology on board Patient does not want dialysis, but daughter said that the family will discuss about dialysis Creatinine is near baseline at 1.7 today Continue Lasix 60mg BID Continue monitor BMP (4) Chronic diastolic (congestive) heart failure: Chronic diastolic CHF- looks compensated but she was given IVF in ED for dye load because of her CKD. Will give a dose of iv lasix tonight and continue home lasix 60 bid from tomorrow morning (takes at 9 am and 1 pm at home). continue daily weight, strict I and Os, check echo. Follows with cardio as OP. Will consult cardio as per daughter's request. 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 Continue synthroid at home dose. (8) GERD (gastroesophageal reflux disease): HTN- continue home meds with hold parameters DVT prophylaxis Dispo- PCU on tele Full code Discharge Plan Discharge Items Patient Disposition: Home - Self-Care Reason For Visit: HEART PALPTITATIONS, INDEGESTION Discharge Diagnosis: Bilateral pulmonary embolism: DVT, bilateral lower limbs: Chronic hypoxic respiratory failure CARLO (acute kidney injury) on chronic kidney disease Chronic diastolic (congestive) heart failure: PAF (paroxysmal atrial fibrillation): Electrolyte imbalance: Hypothyroidism (acquired): Condition on Discharge: Good Activity: Resume your previous activity Non-emergency contact: Primary Care Provider, [employer] Open Stack Administrator and Prepress Specialist Call non-emergency contact if: you have any medication questions Follow-up/Referrals: Elysia Saunders MD, PhD [Physician] - (Date & Time 11/11/2021 1:00 PM Provider Elysia Saunders MD Department Nephrology, [facility] ) Dionicio Morrison [Physician Epic Radiant Analyst] - (Date & Time 10/13/2021 12:30 PM Provider Dionicio Morrison PA-C Department Cardiology, [facility] ) Urszula Denny MD [Primary Care Provider] - (Date & Time 10/06/2021 11:00 AM Provider Urszula Denny MD Department General Internal Medicine [facility] ) Diet: Heart Healthy Addtl Attending Provider Instructions: Follow with your primary care provider Dr. denny on 10/06/2021 @ 11:00 AM General Internal Medicine [facility] Follow up with Cardiology Prince MA on 10/13/21 @ 12:30 AM Cardiology, [facility] Follow up with Nephrology Dr. Saunders in 1-2 weeks Nephrology, [facility] Follow up with the coumadin clinic to monitor your PT/INR Check INR in 2-3 days. Goal INR between 2 to [address] Gillis was order for fluid limit prior to admission, you should resume the fluid restriction if you were not on fluid limit prior to admission, nephrology recommended 40-60 oz daily Fall precaution Continue oxygen supplement Continue monitor for any abnormal bleeding Seek medical attention if you develop any abnormal bleeding Losartan decreased to 25mg at night Continue Lasix 60mg twice a day Potassium supplement 10meq twice a day Medication Instructions: Coumadin Warfarin is a medicine prescribed to prevent blood clots Warfarin will thin your blood and help prevent new clots Take your medications exactly as directed Never skip a dose. Never take a double dose. If you miss a dose, take it as soon as you remember It is important for your doctor to monitor your prothrombin time (PT). This is a lab test Keep your appointment for lab tests Risk of Adverse Drug Reactions and Interactions: Warfarin increases your risk of bleeding The food you eat and other medications you take can affect how Warfarin works in your body Ask your doctor about daily aspirin therapy It is very important to talk with your doctor about all of the other medicines, antibiotics, vitamins or herbal products that you are taking All of your medication must be approved by your doctor, including new medicines, as well as medicines you have taken before you started taking Warfarin Avoid NSAIDs (Motrin, Aleve, Naproxen, Ibuprofen, Advil, Meloxicam,..) due to risks of bleeding Diet: In order for Warfarin to work properly, it is important to keep your intake of Vitamin K as consistent as possible You should avoid any sudden change in Vitamin K intake Report any significant changes in your diet or weight to your doctor Call your Primary Care doctor if you experience any of the following: Swelling or Pain in your leg Sudden, continuous pain deep in a muscle Pain that worsens when you are active or when you stand still for a long time Chest Pain Sudden Shortness of Breath Rapid or pounding heart beat Fainting Dizziness Cough with blood or bloody sputum Sweating more than normal Bruises Heavy or uncontrolled bleeding Blood in your urine, stool or vomit Black or tarry stools Caring for Your Self at Home: Avoid sitting, standing or lying down for long periods without moving your legs and feet When traveling by car, stop to get out and move around at least once every 3 hours On long airplane, train or bus rides, get up and move around when possible If you can't get up, wiggle your toes and tighten your calves to keep your blood moving Pending Studies at Discharge: No Stand-Alone Forms: My [facility] [place], Smoking Cessation Medications and DC Order Prescriptions: New warfarin 2 mg tablet 2 mg PO DAILY Qty: 30 RF: 0 Continued atorvastatin 40 mg Tablet 40 mg PO PM RF: 0 carvedilol [Coreg] 25 mg Tablet 12.5 mg PO BID RF: 0 allopurinol 100 mg Tablet 200 mg PO QAM RF: 0 spironolactone 25 mg Tablet 12.5 mg PO QAM RF: 0 budesonide 0.5 mg/2 mL Suspension For Nebulization 0.5 mg INHALATION BID RF: 0 levalbuterol HCl [Xopenex] 1.25 mg/3 mL Solution For Nebulization 1.25 mg INHALATION DIRECTED RF: 0 tamoxifen 20 mg Tablet 20 mg PO QAM RF: 0 levothyroxine 150 mcg Capsule 150 mcg PO 4XWK RF: 0 pantoprazole [Protonix] 40 mg Tablet,Delayed Release (Dr/Ec) 40 mg PO BID RF: 0 nitroglycerin [Nitrostat] 0.4 mg Tablet, Sublingual 0.4 mg buccal .UD PRN (Reason: Chest Pain) RF: 0 montelukast 10 mg Tablet 10 mg PO PM RF: 0 cholecalciferol (vitamin D3) [Vitamin D3] 1,000 unit Capsule 2,000 unit PO 3XWK RF: 0 escitalopram oxalate [Lexapro] 10 mg Tablet 5 mg PO QAM RF: 0 fexofenadine 180 mg Tablet 180 mg PO QAM RF: 0 calcium carbonate 600 mg calcium (1,500 mg) Tablet 600 mg PO PM RF: 0 triamcinolone acetonide [Nasacort] 55 mcg Aerosol,[place] 1 spray INTRANASAL BID RF: 0 azelastine 137 mcg (0.1 %) Aerosol,[place] 1 spray INTRANASAL BID RF: 0 Saline Nasal 0.65 % Aerosol,[place] 2 spray INTRANASAL QID PRN (Reason: Nasal Congestion) RF: 0 nystatin 100,000 unit/mL suspension 5 ml PO BID RF: 0 famotidine 20 mg Tablet 20 mg PO BID RF: 0 isosorbide mononitrate 60 mg tablet extended release 24 hr 60 mg PO HS RF: 0 levalbuterol tartrate 45 mcg/actuation HFA aerosol inhaler 1 puff INHALATION Q4H PRN (Reason: Wheezing) RF: 0 magnesium oxide 400 mg (241.3 mg magnesium) tablet 400 mg PO QAM RF: 0 prednisone 10 mg Tablet 10 mg PO QAM RF: 0 sucralfate 100 mg/mL suspension 10 ml PO TID RF: 0 acetaminophen 500 mg Tablet 500 mg PO TID RF: 0 levothyroxine 150 mcg Tablet 225 mcg PO .3XW RF: 0 amoxicillin 500 mg capsule 500 mg PO BID RF: 0 hydralazine 10 mg tablet 10 mg PO DAILY PRN (Reason: Unknown) RF: 0 polyethylene glycol 3350 [Miralax] 17 gram Powder In Packet 255 g PO DAILY RF: 0 sucralfate [Carafate] 1 gram Tablet 1 g PO TID RF: 0 docusate sodium 50 mg Capsule 50 mg PO BID RF: 0 tramadol 50 mg Tablet 50 mg PO Q6H PRN (Reason: Pain) RF: 0 benzonatate 100 mg Capsule 100 mg PO TID PRN (Reason: Cough) RF: 0 triamcinolone acetonide [Triamcinolone Acetate] 40 mg/mL Suspension 40 mg IM DAILY RF: 0 clotrimazole-betamethasone 1-0.05 % cream 1 applic TOPICAL BID PRN (Reason: Unknown) RF: 0 lidocaine HCl 2 % Solution 1 applic topical DAILY PRN (Reason: Unknown) RF: 0 calcitriol 0.25 mcg capsule 0.25 mcg PO 3XWK RF: 0 Vitron-C 65 mg iron- 125 mg tablet,delayed release (DR/EC) 1 tab PO QAM RF: 0 guaifenesin [Mucinex] 600 mg Tablet Extended Release 12hr 600 mg PO DAILY RF: 0 Changed furosemide 40 mg tablet 60 mg PO BID 30 Days Qty: 90 RF: 0 losartan 50 mg Tablet 25 mg PO HS Qty: 0 RF: 0 potassium chloride 10 mEq tablet extended release 10 meq PO BID Qty: 0 RF: 0 Discharge Orders: Discharge Order (Routine); Ordered 10/05/21 Ordered By: Doug Angulo Admission Data Admit Date/Time: 09/24/21 16:50 Attending Provider: Doug Angulo Admit Provider: Luis Vargas Primary Care Provider: Urszula Denny Other Providers: Luis Vargas ; Darrell Montero ; Rolando Lyles ; Pio Benjamin ; Johnny Lopez ; Goran Locke ; Dionicio Morrison ; Nany Meneses ; Myranda Felix ; Trisha Perkins ; Carlos Lockwood ; Magi Pruett ; Guera Michelle
[2021-10-05] MEDS ORDERED: WARFARIN SOD 2 MG TAB PO SCH (16:00)
[2021-10-05] MEDS ORDERED: POTASSIUM CHLORIDE 10 MEQ TABCR PO SCH (21:00)
== END 2021-10-05 15:35 | disposition home health service (06) | DRG 175 ==
LOC: ED 10:06 → 2E 16:50 → SUATTDRO 16:50 → 2E 19:30

== ENCOUNTER 2021-10-19 17:29 | Inpatient (IN) ==
--- NOTE | 2021-10-19 18:34 | Emergency Department Note ---
Impression & Plan Acute confusion, Acute UTI, Cellulitis of arm, right, Supratherapeutic INR ED Provider Note NAME: ANNEMARIE VILLANUEVA AGE: 89 SEX: F : 1930 ARRIVES VIA: Walk-In INFORMANT: Patient, ED PROVIDER(S): Jose Gastelum MD Chief Complaint: Confusion, UTI HPI: Patient presents with daughter who is one of her primary care caregivers at bedside. The daughter is concerned as the patient has developed some right upp er extremity swelling, cellulitic change as well as a UTI. The patient has had some increasing confusion and disorientation since Monday. No recent falls or trauma. The patient was recently started on Coumadin and was most recently elevated greater than 5 and skipped a dose yesterday. The Coumadin was restarted due to concern for blood clots in the legs and lungs. The patient does have chronic cough that is nonproductive that has a known history of COPD and CHF. The patient was seen at [facility] yesterday per the patient's daughter did have blood work completed which showed that the sodium was a little low creatinine was 1.5 and the patient's urinalysis was likely positive for infectio n. The patient was started on cefdinir 300 twice daily. Patient has not had any fevers or chills and denies any chest pains or shortness of breath. The patient denies any abdominal pain. Patient has otherwise been compliant with medications. Patient is on chronic 2 L of oxygen at all times. ROS: See HPI for pertinent positives and negatives. A total of 10 systems were reviewed and otherwise negative. Past medical history: See below Surgical history: See below Social history: See below Physical Exam: GENERAL: NAD, non-toxic. EYE EXAM: Normal conjunctiva. PERRL, no anisocoria and EOM's grossly intact w/o pain. OROPHARYNX: Dry mucus membranes. Grossly normal dentition. NECK: Supple, no nuchal rigidity, no adenopathy, non-tender. No signs of meningismus. FROM of the neck with good chin to chest and neck extension. No stridor. LUNGS: Clear to auscultation. Normal chest wall mechanics. HEART: NSR, no MRG. ABDOMEN: Abdomen soft, non-tender, normo-active bowel sounds, no masses, no rebound or guarding. BACK: No CVA TTP. SKIN: No rashes and no bruising. UPPER EXTREMITIES: Right greater than left upper extremity swelling with associated redness to the lateral aspect of the right upper arm, no crepitus and is neurovascular intact distally. LOWER EXTREMITIES: Grossly normal, pretibial symmetric edema without calf pain or erythema, compartments are soft and without crepitus. NEURO EXAM: A&O x3, cranial nerves II-XII grossly intact, normal speech, moves all 4 extremities on command w/o issue. Differential diagnoses: Sepsis, UTI, pneumonia, metabolic, electrolyte abnormalities, cardiac sources, intracerebral event, toxicologic, neurologic, as well as other pathologies. Course: Patient was seen and evaluated the bedside. Full history physical exam was performed. EKG interpreted by Sinus with first-degree AV block, rate of 75, prolonged MI, normal QRS, normal axis. No obvious ST elevations. Imaging Studies: See Below [Cardiac monitoring: An order was placed for continuous cardiac monitoring. The monitor shows a rate of with rhythm.] MDM: Patient was seen due to concern for confusion. Blood work was obtained along with a CT of the head and ultrasound of the right upper extremity chest x-ray. Patient started on empiric antibiotics. Patient has a white count of 12 with a hemoglobin of 10 which is chronic and stable. The patient's platelet count is unremarkable. INR supratherapeutic at 5.3. Creatinine 1.6 virtual baseline. Prerenal azotemia noted. Patient did receive a small mount of IV fluids but this was judicious in nature as the patient does have a prior history of CHF but clinically appeared dry. Patient does have a mild transaminitis patient has no right upper quadrant pain. Procalcitonin 0.7. Urinalysis does show possible infection with yeast. COVID- negative. CT head negative for patient's chest x-ray shows cardiomegaly. P atient's ultrasound shows no evidence of DVT. The patient may have a joint effusion. The patient does have a right upper arm collection measuring 11.3 cm. There is not depth with thickness described but upon review it is fairly thin in nature. Believe abscess to be less likely. Given the patient's confusion likely UTI and concomitant cellulitis of the right upper extremity do believe the patient would benefit from inpatient treatment at this time. I did speak with Dr. Mohr and the patient was admitted to the medicine service. Past Med/Surg History Medical History Anemia recent hospitalization at [facility] 2 weeks ago Anticoagulated on Coumadin Anxiety Asthma, moderate persistent not well controlled, frequent nebulizer use Chronic diastolic CHF (congestive heart failure) follows with Dr. Benjamin CKD (chronic kidney disease), stage III follows with Dr. 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, no surgeries Hypothyroidism (acquired) "s/p thyroidectomy and radioiodine therapy for cancer treatment" Hysterectomy (02/22/13) IBS (irritable bowel syndrome) Labile hypertension Osteoporosis (02/22/13) PAF (paroxysmal atrial fibrillation) hx of 10 yrs ago > no longer on ASA or Coumadin as of 2 weeks ago 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 Father , Passed age 50 of [place] No problems noted. Brother Lung fibrosis Brother , Passed age 63 of allergic reaction to antibiotics No problems noted. Sister , Passed age 83 of "electrolyte disturbances" DCIS (ductal carcinoma in situ) Sister , Passed age 84 from post surgical complications No problems noted. Sister No problems noted. Daughter No problems noted. Daughter No problems noted. Son No problems noted. 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) Feels Safe at Home: Yes caffeine: No during the past year weight has: remained stable Assistive Devices: Oxygen - Continuous and Walker Allergies 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, account resolution specialist recommended not to take sulfamethoxazole Allergy Mild RASH Verified 09/24/21 15:27 trimethoprim Allergy Mild RASH Verified 09/24/21 15:27 amlodipine Allergy legs swell Verified 09/24/21 15:27 severe azithromycin Allergy Unknown Verified 09/24/21 15:27 cefuroxime [From Ceftin] Allergy Diarrhea Verified 09/24/21 15:27 ipratropium Allergy Anaphylaxis Verified 09/24/21 15:27 Sulfa (Sulfonamide Allergy Difficulty Verified 09/24/21 15:27 Antibiotics) Breathing Home Meds Home Medications Medication Instructions Recorded Confirmed allopurinol 100 mg tablet 200 mg PO QAM 02/19/19 10/19/21 atorvastatin 40 mg tablet 40 mg PO PM 02/19/19 10/19/21 azelastine 137 mcg (0.1 %) nasal 1 spray INTRANASAL BID 02/19/19 10/19/21 spray aerosol budesonide 0.5 mg/2 mL suspension 0.5 mg INHALATION BID 02/19/19 10/19/21 for nebulization carvedilol 25 mg tablet (Coreg) 12.5 mg PO BID 02/19/19 10/19/21 cholecalciferol (vitamin D3) 25 2,000 unit PO 3XWK 02/19/19 10/19/21 mcg (1,000 unit) capsule (Vitamin D3) escitalopram oxalate 10 mg tablet 5 mg PO QAM 02/19/19 10/19/21 (Lexapro) fexofenadine 180 mg tablet 180 mg PO QAM 02/19/19 10/19/21 levalbuterol HCl 1.25 mg/3 mL 1.25 mg INHALATION QID 02/19/19 10/19/21 solution for nebulization (Xopenex) montelukast 10 mg tablet 10 mg PO PM 02/19/19 10/19/21 nitroglycerin 0.4 mg sublingual 0.4 mg BUCCAL .UD PRN 02/19/19 10/19/21 tablet (Nitrostat) pantoprazole 40 mg tablet,delayed 40 mg PO BID 02/19/19 10/19/21 release (Protonix) sodium chloride 0.65 % nasal spray 2 spray INTRANASAL QID PRN 02/19/19 10/19/21 aerosol (Saline Nasal) spironolactone 25 mg tablet 12.5 mg PO QAM 02/19/19 10/19/21 tamoxifen 20 mg tablet 20 mg PO . ON HOLD 02/19/19 10/19/21 triamcinolone acetonide 55 mcg 1 spray INTRANASAL BID 02/19/19 09/24/21 nasal spray aerosol (Nasacort) isosorbide mononitrate 60 mg 60 mg PO HS 11/15/20 10/19/21 tablet,extended release 24 hr levalbuterol tartrate 45 1 puff INHALATION Q4H PRN 11/15/20 10/19/21 mcg/actuation aerosol inhaler acetaminophen 500 mg tablet 500 mg PO TID 05/19/21 10/19/21 magnesium oxide 400 mg (241.3 mg 800 mg PO QAM 05/19/21 10/19/21 magnesium) tablet sucralfate 100 mg/mL oral 10 ml PO TID 05/19/21 10/19/21 suspension famotidine 20 mg tablet 20 mg PO BID 05/28/21 10/19/21 benzonatate 100 mg capsule 100 mg PO TID PRN 09/24/21 10/19/21 calcitriol 0.25 mcg capsule 0.25 mcg PO 3XWK 09/24/21 10/19/21 clotrimazole-betamethasone 1 1 applic TOPICAL BID PRN 09/24/21 10/19/21 %-0.05 % topical cream guaifenesin 600 mg tablet, 600 mg PO BID 09/24/21 10/19/21 extended release 12 hr (Mucinex) hydralazine 10 mg tablet 10 mg PO TID PRN 09/24/21 10/19/21 iron,carbonyl 65 mg-vitamin C 125 1 tab PO QAM 09/24/21 10/19/21 mg tablet,delayed release (Vitron-C) lidocaine HCl 2 % mucosal solution 1 applic TOPICAL DAILY PRN 09/24/21 10/19/21 triamcinolone acetonide 40 mg/mL 40 mg IM DAILY 09/24/21 09/24/21 suspension for injection budesonide-formoterol HFA 160 2 puff INHALATION BID 10/19/21 10/19/21 mcg-4.5 mcg/actuation aerosol inhaler (Symbicort) cefdinir 300 mg capsule 300 mg PO QAM 10/19/21 10/19/21 docusate sodium 100 mg capsule 200 mg PO BID 10/19/21 10/19/21 furosemide 40 mg tablet 60 mg PO UD 10/19/21 10/19/21 levothyroxine 200 mcg tablet 200 mcg PO DAILYBB 10/19/21 10/19/21 nystatin 100,000 unit/gram topical 1 applic TOPICAL BID PRN 10/19/21 10/19/21 powder potassium chloride 10 mEq 10 meq PO UD 10/19/21 10/19/21 tablet,extended release prednisone 5 mg tablet 5 mg PO DAILY 10/19/21 10/19/21 Previous Rx's Medication Instructions Recorded warfarin 2 mg tablet 2 mg PO DAILY #30 tab 10/05/21 Results & Data (ED) Vital Signs Vital Signs - 24 hr 10/19/21 17:43 10/19/21 18:45 10/19/21 19:00 Temperature 36.2 C L Temperature Source Temporal Artery Scan Pulse Rate 84 Pulse Rate [Finger] 85 87 Respiratory Rate 14 18 18 Respiratory Effort / Characteristics Non-Labored Spontaneous Respiratory Depth Normal Respiratory Pattern Regular Blood Pressure 156/82 H Blood Pressure [Left Arm] Blood Pressure Mean 106 Blood Pressure Mean [Left Arm] Blood Pressure Position Sitting Blood Pressure Position [Left Arm] Pulse Oximetry 98 98 98 Oxygen Delivery Method Nasal Cannula Room Air Nasal Cannula Nasal Cannula Oxygen Flow Rate 2 2 Sepsis Recent Fever Within 48 Hours No Sepsis New/Unexplained Change in Mental Status No Sepsis Action Taken by Nursing No Action Required 10/19/21 19:15 10/19/21 19:18 10/19/21 19:30 Temperature Temperature Source Pulse Rate Pulse Rate [Finger] 84 90 Respiratory Rate 18 18 18 Respiratory Effort / Characteristics Non-Labored Spontaneous Respiratory Depth Respiratory Pattern Blood Pressure Blood Pressure [Left Arm] Blood Pressure Mean Blood Pressure Mean [Left Arm] Blood Pressure Position Blood Pressure Position [Left Arm] Pulse Oximetry 98 98 Oxygen Delivery Method Nasal Cannula Nasal Cannula Nasal Cannula Oxygen Flow Rate 2 2 2 Sepsis Recent Fever Within 48 Hours Sepsis New/Unexplained Change in Mental Status Sepsis Action Taken by Nursing 10/19/21 19:45 10/19/21 20:00 10/19/21 20:30 Temperature Temperature Source Pulse Rate Pulse Rate [Finger] 88 86 86 Respiratory Rate 18 18 18 Respiratory Effort / Characteristics Non-Labored Spontaneous Respiratory Depth Respiratory Pattern Blood Pressure Blood Pressure [Left Arm] Blood Pressure Mean Blood Pressure Mean [Left Arm] Blood Pressure Position Blood Pressure Position [Left Arm] Pulse Oximetry 98 98 98 Oxygen Delivery Method Nasal Cannula Nasal Cannula Nasal Cannula Oxygen Flow Rate 2 2 2 Sepsis Recent Fever Within 48 Hours Sepsis New/Unexplained Change in Mental Status Sepsis Action Taken by Nursing 10/19/21 20:57 10/19/21 21:30 10/19/21 22:14 Temperature Temperature Source Pulse Rate Pulse Rate [Finger] 84 Respiratory Rate 18 18 Respiratory Effort / Characteristics Respiratory Depth Respiratory Pattern Blood Pressure Blood Pressure [Left Arm] 146/74 H 123/70 Blood Pressure Mean Blood Pressure Mean [Left Arm] 98 87 Blood Pressure Position Blood Pressure Position [Left Arm] Lying Pulse Oximetry 98 96 Oxygen Delivery Method Nasal Cannula Room Air Oxygen Flow Rate 2 Sepsis Recent Fever Within 48 Hours Sepsis New/Unexplained Change in Mental Status Sepsis Action Taken by [facility] Medications Current Medication List: was personally reviewed by me Laboratory Data Attestation: I reviewed the patient's lab results. Result diagrams: 10/19/21 19:45 10/19/21 19:45 Lab Results 10/19/21 10/19/21 10/19/21 Range/Units 18:54 19:01 19:45 WBC 12.98 H (4.8-10.8) K/uL RBC 3.37 L (4.2-5.4) M/uL Hgb 10.0 L (12.0-16.0) g/dL Hct 31.2 L (37-47) % MCV 92.6 (80-100) fL MCH 29.7 (25-34) pg MCHC 32.1 (32-36) g/dL RDW Std Deviation 52.4 H (36.4-46.3) fL RDW Coeff of Chrissy 15.6 H (11.5-14.5) % Plt Count 313 (130-400) K/uL MPV 10.3 (7.4-10.4) fL Immature Gran % (Auto) 0.4 % Neut % (Auto) 77.9 % Lymph % (Auto) 9.2 % [place] % (Auto) 11.7 % Eos % (Auto) 0.7 % Baso % (Auto) 0.1 % Neut # (Auto) 10.12 H (1.4-6.5) K/uL Lymph # (Auto) 1.19 L (1.2-3.4) K/uL [place] # (Auto) 1.52 H (0.11-0.59) K/uL Eos # (Auto) 0.09 (0-0.5) K/uL Baso # (Auto) 0.01 (0-0.2) K/uL Immature Gran # (Auto) 0.05 H (0.00-0.02) K/uL PT (9.0-12.0) Seconds INR (0.9-1.1) APTT (21.0-31.0) Seconds PTT Ratio Sodium (136-145) mmol/L Potassium (3.5-5.1) mmol/L Chloride (98-107) mmol/L Carbon Dioxide (21-32) mmol/L Anion Gap (3-11) BUN (6-23) mg/dl Creatinine (0.6-1.2) mg/dl Est Cr Clr Drug Dosing ml/min Est GFR ( Amer) ml/min Est GFR (Non-Af Amer) ml/min BUN/Creatinine Ratio (10-20) Glucose (70-99(Fasting)) mg/dl Lactate (0.4-2.0) mmol/L Calcium (8.5-10.1) mg/dl Magnesium (1.7-2.4) mg/dl Total Bilirubin (0.2-1.0) mg/dl AST (13-39) U/L ALT (7-52) U/L Alkaline Phosphatase (34-104) U/L Total Protein (6.0-8.3) gm/dl Albumin (3.4-5.0) gm/dl Globulin (2.5-4.0) gm/dl Albumin/Globulin Ratio (0.9-2) Procalcitonin (0-0.5) ng/ml Urine Color Yellow Urine Appearance Cloudy A (Clear) Urine pH 5.0 (4.5-7.5) Ur Specific [place] 1.015 (1.000-1.030) Urine Protein Trace H (Negative) Urine Glucose (UA) Negative (Negative) Urine Ketones Negative (Negative) Urine Blood Negative (Negative) Urine Nitrite Negative (Negative) Urine Bilirubin Negative (Negative) Urine Urobilinogen Negative (Negative) Ur Leukocyte Esterase 2+ H (Negative) Urine WBC (Auto) >30 H (0-5) /hpf Urine RBC (Auto) 0-4 (0-4) /hpf U Hyaline Cast (Auto) 1-5 (0-5) /lpf U Epithel Cells (Auto) >30 H (0-5) /lpf Urine Bacteria (Auto) 1+ H (Negative) Urine Yeast Budding A (None Prsent) SARS-CoV-2, RNA, NAAT NEGATIVE (NEGATIVE) 10/19/21 10/19/21 10/19/21 Range/Units 19:45 19:45 19:45 WBC (4.8-10.8) K/uL RBC (4.2-5.4) M/uL Hgb (12.0-16.0) g/dL Hct (37-47) % MCV (80-100) fL MCH (25-34) pg MCHC (32-36) g/dL RDW Std Deviation (36.4-46.3) fL RDW Coeff of Chrissy (11.5-14.5) % Plt Count (130-400) K/uL MPV (7.4-10.4) fL Immature Gran % (Auto) % Neut % (Auto) % Lymph % (Auto) % [place] % (Auto) % Eos % (Auto) % Baso % (Auto) % Neut # (Auto) (1.4-6.5) K/uL Lymph # (Auto) (1.2-3.4) K/uL [place] # (Auto) (0.11-0.59) K/uL Eos # (Auto) (0-0.5) K/uL Baso # (Auto) (0-0.2) K/uL Immature Gran # (Auto) (0.00-0.02) K/uL PT 51.4 H (9.0-12.0) Seconds INR 5.3 H (0.9-1.1) APTT 55.3 H* (21.0-31.0) Seconds PTT Ratio 2.0 Sodium 134 L (136-145) mmol/L Potassium 4.2 (3.5-5.1) mmol/L Chloride 93 L (98-107) mmol/L Carbon Dioxide 33 H (21-32) mmol/L Anion Gap 8 (3-11) BUN 54 H (6-23) mg/dl Creatinine 1.66 H (0.6-1.2) mg/dl Est Cr Clr Drug Dosing 19.7 ml/min Est GFR ( Amer) 31.3 ml/min Est GFR (Non-Af Amer) 27.0 ml/min BUN/Creatinine Ratio 32.5 H (10-20) Glucose 200 H (70-99(Fasting)) mg/dl Lactate 1.0 (0.4-2.0) mmol/L Calcium 9.1 (8.5-10.1) mg/dl Magnesium 2.0 (1.7-2.4) mg/dl Total Bilirubin 0.4 (0.2-1.0) mg/dl AST 133 H (13-39) U/L ALT 118 H (7-52) U/L Alkaline Phosphatase 155 H (34-104) U/L Total Protein 6.3 (6.0-8.3) gm/dl Albumin 2.9 L (3.4-5.0) gm/dl Globulin 3.4 (2.5-4.0) gm/dl Albumin/Globulin Ratio 0.9 (0.9-2) Procalcitonin (0-0.5) ng/ml Urine Color Urine Appearance (Clear) Urine pH (4.5-7.5) Ur Specific [place] (1.000-1.030) Urine Protein (Negative) Urine Glucose (UA) (Negative) Urine Ketones (Negative) Urine Blood (Negative) Urine Nitrite (Negative) Urine Bilirubin (Negative) Urine Urobilinogen (Negative) Ur Leukocyte Esterase (Negative) Urine WBC (Auto) (0-5) /hpf Urine RBC (Auto) (0-4) /hpf U Hyaline Cast (Auto) (0-5) /lpf U Epithel Cells (Auto) (0-5) /lpf Urine Bacteria (Auto) (Negative) Urine Yeast (None Prsent) SARS-CoV-2, RNA, NAAT (NEGATIVE) 10/19/21 Range/Units 19:45 WBC (4.8-10.8) K/uL RBC (4.2-5.4) M/uL Hgb (12.0-16.0) g/dL Hct (37-47) % MCV (80-100) fL MCH (25-34) pg MCHC (32-36) g/dL RDW Std Deviation (36.4-46.3) fL RDW Coeff of Chrissy (11.5-14.5) % Plt Count (130-400) K/uL MPV (7.4-10.4) fL Immature Gran % (Auto) % Neut % (Auto) % Lymph % (Auto) % [place] % (Auto) % Eos % (Auto) % Baso % (Auto) % Neut # (Auto) (1.4-6.5) K/uL Lymph # (Auto) (1.2-3.4) K/uL [place] # (Auto) (0.11-0.59) K/uL Eos # (Auto) (0-0.5) K/uL Baso # (Auto) (0-0.2) K/uL Immature Gran # (Auto) (0.00-0.02) K/uL PT (9.0-12.0) Seconds INR (0.9-1.1) APTT (21.0-31.0) Seconds PTT Ratio Sodium (136-145) mmol/L Potassium (3.5-5.1) mmol/L Chloride (98-107) mmol/L Carbon Dioxide (21-32) mmol/L Anion Gap (3-11) BUN (6-23) mg/dl Creatinine (0.6-1.2) mg/dl Est Cr Clr Drug Dosing ml/min Est GFR ( Amer) ml/min Est GFR (Non-Af Amer) ml/min BUN/Creatinine Ratio (10-20) Glucose (70-99(Fasting)) mg/dl Lactate (0.4-2.0) mmol/L Calcium (8.5-10.1) mg/dl Magnesium (1.7-2.4) mg/dl Total Bilirubin (0.2-1.0) mg/dl AST (13-39) U/L ALT (7-52) U/L Alkaline Phosphatase (34-104) U/L Total Protein (6.0-8.3) gm/dl Albumin (3.4-5.0) gm/dl Globulin (2.5-4.0) gm/dl Albumin/Globulin Ratio (0.9-2) Procalcitonin 0.74 H (0-0.5) ng/ml Urine Color Urine Appearance (Clear) Urine pH (4.5-7.5) Ur Specific [place] (1.000-1.030) Urine Protein (Negative) Urine Glucose (UA) (Negative) Urine Ketones (Negative) Urine Blood (Negative) Urine Nitrite (Negative) Urine Bilirubin (Negative) Urine Urobilinogen (Negative) Ur Leukocyte Esterase (Negative) Urine WBC (Auto) (0-5) /hpf Urine RBC (Auto) (0-4) /hpf U Hyaline Cast (Auto) (0-5) /lpf U Epithel Cells (Auto) (0-5) /lpf Urine Bacteria (Auto) (Negative) Urine Yeast (None Prsent) SARS-CoV-2, RNA, NAAT (NEGATIVE) Administered Medications Doxycycline Hyclate 100 mg/ (Dextrose) 110 mls @ 50 mls/hr IV NOW STA Stop: 10/20/21 00:52 Last Admin: 10/19/21 22:59 Dose: 50 mls/hr Documented by: [id number] Discontinued Medications Ceftriaxone Sodium (Rocephin) 2,000 mg in 70 mls @ 140 mls/hr IV NOW STA Stop: 10/19/21 19:20 Last Infusion: 10/19/21 20:56 Dose: 0 mls/hr Documented by: [id number] Admin: 10/19/21 20:03 Dose: 140 mls/hr Documented by: [id number] Acetaminophen (Ofirmev) 1,000 mg in 100 mls @ 400 mls/hr IV NOW STA Stop: 10/19/21 19:11 Last Infusion: 10/19/21 20:43 Dose: 0 mls/hr Documented by: [id number] Admin: 10/19/21 20:02 Dose: 400 mls/hr Documented by: [id number] Imaging Data Radiologist's Impression: Chest X-Ray 10/19/21 18:49 XR chest 1V portable HISTORY: 89 years-old Female SEPSIS acute sepsis COMPARISON: Chest radiograph 10/01/2021 TECHNIQUE: Portable AP view of the chest FINDINGS: Cardiac silhouette is enlarged. No pneumothorax, large pleural effusion or overt pulmonary edema. Unchanged right hemidiaphragmatic elevation. Moderate sized hiatal hernia with improved left basilar opacities. Degenerative changes of the shoulders and spine. IMPRESSION: 1. Cardiomegaly without pulmonary edema. 2. Moderate hiatal hernia with left basilar opacities suggestive of atelectasis. 3. Unchanged right hemidiaphragmatic elevation. ACT 112: Negative or not required by law. The above report was generated using voice recognition software. It may contain grammatical, syntax or spelling errors. Electronically signed by: Isaac Pierre M.D. 10/19/2021 8:[address] 10/19/21 18:56 CT head/brain wo con CLINICAL HISTORY: 89 years-old Female with confusion, elevated INR. Acutely altered mental status with elevated INR TECHNIQUE: Multiple axial CT images of the head were obtained without contrast. A dose lowering technique was utilized adhering to the principles of ALARA. CT DOSE: 537.48 mGy.cm COMPARISON: Head CT 10/01/2021 FINDINGS: No acute intracranial hemorrhage, midline shift, intracranial mass, hyd rocephalus, territorial ischemia or abnormal extra-axial collection. Age-related involutional changes. Mild white matter hypodensities are suggestive of probable chronic microvascular ischemic disease. Cerebral vascular calcifications. The calvarium is intact. Prior bilateral lens repair. The paranasal sinuses, mastoid air cells, and middle ear cavities are clear. IMPRESSION: No acute intracranial abnormality. ACT 112: Negative or not required by law. The above report was generated using voice recognition software. It may contain grammatical, syntax or spelling errors. Electronically signed by: Isaac Pierre M.D. 10/19/2021 8:25 PM Discharge Plan Visit Data Chief Complaint: Urinary Symptoms Stated Complaint: UTI. R ARM SWOLLEN. TENDER ED Provider: Jose Gastelum Discharge Problem: Acute confusion, Acute UTI, Cellulitis of arm, right, Supratherapeutic INR Patient Disposition: Admitted As Inpatient Forms Stand Alone Forms: [facility] Prescriptions Prescriptions: No Action atorvastatin 40 mg Tablet 40 mg PO PM RF: 0 carvedilol [Coreg] 25 mg Tablet 12.5 mg PO BID RF: 0 allopurinol 100 mg Tablet 200 mg PO QAM RF: 0 spironolactone 25 mg Tablet 12.5 mg PO QAM RF: 0 budesonide 0.5 mg/2 mL Suspension For Nebulization 0.5 mg INHALATION BID RF: 0 levalbuterol HCl [Xopenex] 1.25 mg/3 mL Solution For Nebulization 1.25 mg INHALATION QID RF: 0 tamoxifen 20 mg Tablet 20 mg PO . ON HOLD RF: 0 pantoprazole [Protonix] 40 mg Tablet,Delayed Release (Dr/Ec) 40 mg PO BID RF: 0 nitroglycerin [Nitrostat] 0.4 mg Tablet, Sublingual 0.4 mg buccal .UD PRN (Reason: Chest Pain) RF: 0 montelukast 10 mg Tablet 10 mg PO PM RF: 0 cholecalciferol (vitamin D3) [Vitamin D3] 1,000 unit Capsule 2,000 unit PO 3XWK RF: 0 escitalopram oxalate [Lexapro] 10 mg Tablet 5 mg PO QAM RF: 0 fexofenadine 180 mg Tablet 180 mg PO QAM RF: 0 triamcinolone acetonide [Nasacort] 55 mcg Aerosol,[place] 1 spray INTRANASAL BID RF: 0 azelastine 137 mcg (0.1 %) Aerosol,[place] 1 spray INTRANASAL BID RF: 0 Saline Nasal 0.65 % Aerosol,[place] 2 spray INTRANASAL QID PRN (Reason: Nasal Congestion) RF: 0 famotidine 20 mg Tablet 20 mg PO BID RF: 0 isosorbide mononitrate 60 mg tablet extended release 24 hr 60 mg PO HS RF: 0 levalbuterol tartrate 45 mcg/actuation HFA aerosol inhaler 1 puff INHALATION Q4H PRN (Reason: Wheezing) RF: 0 magnesium oxide 400 mg (241.3 mg magnesium) tablet 800 mg PO QAM RF: 0 sucralfate 100 mg/mL suspension 10 ml PO TID RF: 0 acetaminophen 500 mg Tablet 500 mg PO TID RF: 0 hydralazine 10 mg tablet 10 mg PO TID PRN (Reason: Hypertension) RF: 0 benzonatate 100 mg Capsule 100 mg PO TID PRN (Reason: Cough) RF: 0 triamcinolone acetonide 40 mg/mL Suspension 40 mg IM DAILY RF: 0 clotrimazole-betamethasone 1-0.05 % cream 1 applic TOPICAL BID PRN (Reason: redness of skin) RF: 0 lidocaine HCl 2 % Solution 1 applic topical DAILY PRN (Reason: on feet before podiatry) RF: 0 calcitriol 0.25 mcg capsule 0.25 mcg PO 3XWK RF: 0 Vitron-C 65 mg iron- 125 mg tablet,delayed release (DR/EC) 1 tab PO QAM RF: 0 guaifenesin [Mucinex] 600 mg Tablet Extended Release 12hr 600 mg PO BID RF: 0 warfarin 2 mg tablet 2 mg PO DAILY Qty: 30 RF: 0 cefdinir 300 mg capsule 300 mg PO QAM RF: 0 potassium chloride 10 mEq tablet extended release 10 meq PO UD RF: 0 nystatin 100,000 unit/gram powder 1 applic TOPICAL BID PRN (Reason: rash ) RF: 0 levothyroxine 200 mcg tablet 200 mcg PO DAILYBB RF: 0 budesonide-formoterol [Symbicort] 160-4.5 mcg/actuation HFA aerosol inhaler 2 puff INHALATION BID RF: 0 docusate sodium 100 mg Capsule 200 mg PO BID RF: 0 furosemide 40 mg tablet 60 mg PO UD RF: 0 prednisone 5 mg tablet 5 mg PO DAILY RF: 0 Referrals Referrals: Urszula Calvert MD [Primary Care Provider] -
[2021-10-19] MEDS ORDERED: cefTRIAXone SODIUM 2,000 MG/70 ML BAG IV STA (18:51)
[2021-10-19] MEDS ORDERED: ACETAMINOPHEN 1,000 MG/100 ML VIAL IV STA (18:57)
[2021-10-19 19:22] LABS: Appearance Urine Cloudy (Clear); Bilirubin Urine Negative (Negative); Blood Urine Negative (Negative); Color Urine Yellow; Glucose Urine UA Negative (Negative); Ketones Urine Negative (Negative); Leukocyte Esterase Urine 2+ (Negative); Nitrite Urine Negative (Negative); Protein Urine Trace (Negative); RBC Urine Automated 0-4 /hpf (0-4); Specific Gravity Urine 1.015 (1.000-1.030); Urobilinogen Urine Negative (Negative)
[2021-10-19 19:23] LABS: Bacteria Urine Automated 1+ (Negative); Epithelial Cell Urine Auto >30 /lpf (0-5); WBC Urine Automated >30 /hpf (0-5)
[2021-10-19 20:13] LABS: Basophils # (auto) 0.01 K/uL (0-0.2); Basophils % (auto) 0.1 %; Eosinophils # (auto) 0.09 K/uL (0-0.5); Eosinophils % (auto) 0.7 %; Hematocrit (blood only) 31.2 % (37-47); Immature Granulocytes # (auto) 0.05 K/uL (0.00-0.02); Immature Granulocytes % (auto) 0.4 %; Lymphocytes # (auto) 1.19 K/uL (1.2-3.4); Lymphocytes % (auto) 9.2 %; Mean Corpuscular Hemoglobin 29.7 pg (25-34); Mean Corpuscular Hgb Conc 32.1 g/dL (32-36); Mean Corpuscular Volume 92.6 fL (80-100); Mean Platelet Volume 10.3 fL (7.4-10.4); Monocytes # (auto) 1.52 K/uL (0.11-0.59); Monocytes % (auto) 11.7 %; Neutrophils # (auto) 10.12 K/uL (1.4-6.5); Neutrophils % (auto) 77.9 %; Platelet Count 313 K/uL (130-400); RDW Coefficient of Variation 15.6 % (11.5-14.5); RDW Standard Deviation 52.4 fL (36.4-46.3); Red Blood Count 3.37 M/uL (4.2-5.4); White Blood Count 12.98 K/uL (4.8-10.8)
[2021-10-19 20:19] LABS: Albumin Globulin Ratio 0.9 (0.9-2); Albumin Level 2.9 gm/dl (3.4-5.0); BUN Creatinine Ratio 32.5 (10-20); Bilirubin,Total 0.4 mg/dl (0.2-1.0); Calcium 9.1 mg/dl (8.5-10.1); Creatinine Clr Calc Pharmacy 19.7 ml/min; Est GFR (African American) 31.3 ml/min; Globulin 3.4 gm/dl (2.5-4.0); Potassium 4.2 mmol/L (3.5-5.1); Total Protein 6.3 gm/dl (6.0-8.3)
--- NOTE | 2021-10-19 20:27 | CT Scan Report ---
CT head/brain wo con CLINICAL HISTORY: 89 years-old Female with confusion, elevated INR. Acutely altered mental status wi th elevated INR TECHNIQUE: Multiple axial CT images of the head were obtained without contrast. A dose lowering tech nique was utilized adhering to the principles of ALARA. CT DOSE: 537.48 mGy.cm COMPARISON: Head CT 10/01/2021 FINDINGS: No acute intracranial hemorrhage, midline shift, intracranial mass, hydrocephalus, territorial ischem ia or abnormal extra-axial collection. Age-related involutional changes. Mild white matter hypodensit ies are suggestive of probable chronic microvascular ischemic disease. Cerebral vascular calcificatio ns. The calvarium is intact. Prior bilateral lens repair. The paranasal sinuses, mastoid air cells, and m iddle ear cavities are clear. IMPRESSION: No acute intracranial abnormality. ACT 112: Negative or not required by law. The above report was generated using voice recognition software. It may contain grammatical, syntax o r spelling errors. Electronically signed by: Isaac Pierre M.D. 10/19/2021 8:25 PM
--- NOTE | 2021-10-19 20:39 | XRay Report ---
XR chest 1V portable HISTORY: 89 years-old Female SEPSIS acute sepsis COMPARISON: Chest radiograph 10/01/2021 TECHNIQUE: Portable AP view of the chest FINDINGS: Cardiac silhouette is enlarged. No pneumothorax, large pleural effusion or overt pulmonary edema. Unc hanged right hemidiaphragmatic elevation. Moderate sized hiatal hernia with improved left basilar opa cities. Degenerative changes of the shoulders and spine. IMPRESSION: 1. Cardiomegaly without pulmonary edema. 2. Moderate hiatal hernia with left basilar opacities suggestive of atelectasis. 3. Unchanged right hemidiaphragmatic elevation. ACT 112: Negative or not required by law. The above report was generated using voice recognition software. It may contain grammatical, syntax o r spelling errors. Electronically signed by: Isaac Pierre M.D. 10/19/2021 8:37 PM
[2021-10-19 20:47] LABS: INR 5.3 (0.9-1.1); Prothrombin Time 51.4 Seconds (9.0-12.0)
[2021-10-19 21:38] LABS: Partial Thromboplastin Time 55.3 Seconds (21.0-31.0)
[2021-10-19] MEDS ORDERED: DOXYCYCLINE HYCLATE 100 MG in DEXTROSE 5% 100 ML IV STA (22:41)
--- NOTE | 2021-10-19 23:47 | History & Physical Report ---
Date of Service October 19, 2021 History of Present Illness Primary Care Provider: Urszula Calvert MD No evidence of deep vein thrombosis in the right upper extremity. Complex right shoulder collection measuring approximately5.5 x 5.9 x 2.4 cm. This could potentially represent a joint effusion. Additional right upper armcollection measuring up to 11.3 cm. This is nonspecific but could represent an abscess in the appropriate clinical scenario. Consider evaluation with CT. 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, histopathologist recommended not to take sulfamethoxazole Allergy Mild RASH Verified 10/19/21 23:19 trimethoprim Allergy Mild RASH Verified 10/19/21 23:19 amlodipine Allergy legs swell Verified 10/19/21 23:19 severe azithromycin Allergy Unknown Verified 10/19/21 23:19 cefuroxime [From Ceftin] Allergy Diarrhea Verified 10/19/21 23:19 ipratropium Allergy Anaphylaxis Verified 10/19/21 23:19 Sulfa (Sulfonamide Allergy Difficulty Verified 10/19/21 23:19 Antibiotics) Breathing narcotic in general AdvReac Severe Hallucinati Uncoded 10/19/21 23:20 ng Home Medications Medication Instructions Recorded Confirmed Type allopurinol 100 mg tablet 200 mg PO QAM 02/19/19 10/19/21 History atorvastatin 40 mg tablet 40 mg PO PM 02/19/19 10/19/21 History azelastine 137 mcg (0.1 %) nasal 1 spray INTRANASAL BID 02/19/19 10/19/21 History spray aerosol budesonide 0.5 mg/2 mL suspension 0.5 mg INHALATION BID 02/19/19 10/19/21 History for nebulization carvedilol 25 mg tablet (Coreg) 12.5 mg PO BID 02/19/19 10/19/21 History cholecalciferol (vitamin D3) 25 2,000 unit PO 3XWK 02/19/19 10/19/21 History mcg (1,000 unit) capsule (Vitamin D3) escitalopram oxalate 10 mg tablet 5 mg PO QAM 02/19/19 10/19/21 History (Lexapro) fexofenadine 180 mg tablet 180 mg PO QAM 02/19/19 10/19/21 History levalbuterol HCl 1.25 mg/3 mL 1.25 mg INHALATION QID 02/19/19 10/19/21 History solution for nebulization (Xopenex) montelukast 10 mg tablet 10 mg PO PM 02/19/19 10/19/21 History nitroglycerin 0.4 mg sublingual 0.4 mg BUCCAL .UD PRN 02/19/19 10/19/21 History tablet (Nitrostat) pantoprazole 40 mg tablet,delayed 40 mg PO BID 02/19/19 10/19/21 History release (Protonix) sodium chloride 0.65 % nasal spray 2 spray INTRANASAL QID PRN 02/19/19 10/19/21 History aerosol (Saline Nasal) spironolactone 25 mg tablet 12.5 mg PO QAM 02/19/19 10/19/21 History tamoxifen 20 mg tablet 20 mg PO . ON HOLD 02/19/19 10/19/21 History triamcinolone acetonide 55 mcg 1 spray INTRANASAL BID 02/19/19 10/19/21 History nasal spray aerosol (Nasacort) isosorbide mononitrate 60 mg 60 mg PO HS 11/15/20 10/19/21 History tablet,extended release 24 hr levalbuterol tartrate 45 1 puff INHALATION Q4H PRN 11/15/20 10/19/21 History mcg/actuation aerosol inhaler acetaminophen 500 mg tablet 500 mg PO TID 05/19/21 10/19/21 History magnesium oxide 400 mg (241.3 mg 800 mg PO QAM 05/19/21 10/19/21 History magnesium) tablet sucralfate 100 mg/mL oral 10 ml PO TID 05/19/21 10/19/21 History suspension famotidine 20 mg tablet 20 mg PO BID 05/28/21 10/19/21 History benzonatate 100 mg capsule 100 mg PO TID PRN 09/24/21 10/19/21 History calcitriol 0.25 mcg capsule 0.25 mcg PO 3XWK 09/24/21 10/19/21 History clotrimazole-betamethasone 1 1 applic TOPICAL BID PRN 09/24/21 10/19/21 History %-0.05 % topical cream guaifenesin 600 mg tablet, 600 mg PO BID 09/24/21 10/19/21 History extended release 12 hr (Mucinex) hydralazine 10 mg tablet 10 mg PO TID PRN 09/24/21 10/19/21 History iron,carbonyl 65 mg-vitamin C 125 1 tab PO BID 09/24/21 10/19/21 History mg tablet,delayed release (Vitron-C) lidocaine HCl 2 % mucosal solution 1 applic TOPICAL DAILY PRN 09/24/21 10/19/21 History budesonide-formoterol HFA 160 2 puff INHALATION BID 10/19/21 10/19/21 History mcg-4.5 mcg/actuation aerosol inhaler (Symbicort) cefdinir 300 mg capsule 300 mg PO QAM 10/19/21 10/19/21 History docusate sodium 100 mg capsule 200 mg PO BID 10/19/21 10/19/21 History furosemide 40 mg tablet 60 mg PO UD 10/19/21 10/19/21 History levothyroxine 200 mcg tablet 200 mcg PO DAILYBB 10/19/21 10/19/21 History nystatin 100,000 unit/gram topical 1 applic TOPICAL BID PRN 10/19/21 10/19/21 History powder nystatin 100,000 unit/mL oral 10 ml BUCCAL BID 10/19/21 10/19/21 History suspension potassium chloride 10 mEq 10 meq PO UD 10/19/21 10/19/21 History tablet,extended release prednisone 5 mg tablet 5 mg PO DAILY 10/19/21 10/19/21 History warfarin 2 mg tablet 1 mg PO . CURRENTLY ON HOLD 10/19/21 10/19/21 History Past Med/Surg History Medical History Anemia recent hospitalization at [facility] 2 weeks ago Anticoagulated on Coumadin Anxiety Asthma, moderate persistent not well controlled, frequent nebulizer use Chronic diastolic CHF (congestive heart failure) follows with Dr. Benjamin CKD (chronic kidney disease), stage III follows [address] Dr. Hernandez COPD (chronic obstructive pulmonary disease) not well controlled Dyslipidemia GERD (gastroesophageal reflux disease) GI bleed recent hospitalization at [facility] > 1 unit blood Gout Hard of hearing bilat aides Heart disease "nonobstructive disease per cath 2011" Hiatal hernia History of breast cancer x2 > > no chemo just tamxifen for penitentiary use, no surgeries Hypothyroidism (acquired) "s/p thyroidectomy and radioiodine therapy for cancer treatment" Hysterectomy (02/22/13) IBS (irritable bowel syndrome) Labile hypertension Osteoporosis (02/22/13) PAF (paroxysmal atrial fibrillation) hx of 10 yrs ago > no longer on ASA or Coumadin as of 2 weeks ago 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 Father , Passed age 50 of [place] No problems noted. Brother Lung fibrosis Brother , Passed age 63 of allergic reaction to antibiotics No problems noted. Sister , Passed age 83 of "electrolyte disturbances" DCIS (ductal carcinoma in situ) Sister , Passed age 84 from post surgical complications No problems noted. Sister No problems noted. Daughter No problems noted. Daughter No problems noted. Son No problems noted. 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
--- NOTE | 2021-10-20 00:01 | History & Physical Report ---
Date of Service October 20, 2021 Assessment & Plan (1) Generalized weakness: Plan: Multifactorial Complicated UTI Traumatic RUE cellulitis rule out abscess No overt sepsis Procalcitonin noted to be elevated. 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, INR supratherapeutic hypertension, slightly elevated hyperlipidemia, on statin Rx bronchial asthma, episodic wheezing attributed to allergies as per daughter breast cancer status post surgery, tamoxifen on hold following recent confinement for PE DVT until patient sees [facility] oncologist Thyroid cancer status postsurgery status post surgical hypothyroidism, euthyroid as of today's TSH Ongoing steroid Rx Abnormal LFTs Hyperglycemia likely prediabetes, hemoglobin A1c of 6.14 April 2021 CRI, creatinine at baseline chronic anemia, hemoglobin at baseline Ambulatory dysfunction/functional disability Medical telemetry Cefepime for complicated UTI Doxycycline for RUE cellulitis May need orthopedics evaluation pending official CT right shoulder results ([facility] as per patient's daughter's request.) Oral Vitamin K 1 dose given supratherapeutic INR Follow official CT abdomen pelvis result regarding abdominal pain and abnormal LFTs, follow LFTs; liver ultrasound and GI consult if with progression Clarify reason for steroid Rx with discharging physician from recent confinem ent. PT OT eval DVT prophylaxis. Coumadin INR goal between 2 and 3 Full code as per daughter, Ms. Jolie Nicholson. She requests updates from providers through [phone]. Text document was generated using [employer] voice recognition software. It may contain grammatical or spelling errors. Kindly contact undersigned for clarification of any documentation item in question. History of Present Illness Chief Complaint: weakness, right upper extremity swelling Primary Care Provider: Urszula Calvert MD History obtained from patient, family, and records. 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 Patient discharged on Coumadin course and prednisone course as as well. Patient tamoxifen held until follow-up with oncology. Patient daughter noted to be somewhat confused than usual last week. Outpatient UA showed possible infection. Patient PCP prescribed cefdinir. 5 days ago, patient had trouble getting up from the toilet floor. Patient did not ask for help walking. Patient daughter subsequently noted painful right upper extremity swelling. Patient with usual cough symptoms attributed to allergies. Achy headache complaints. Patient also complaining of vague abdominal discomfort described as indigestion. Usual black stools attributed to iron. Patient brought to the ER by daughter given concerns for worsening swelling of the right upper extremity. MEDICAL HISTORY: As above. SURGERIES: Appendectomy, breast biopsy, hysterectomy, hernia repair, complete thyroidectomy FAMILY HISTORY: Breast cancer, DM, heart disease, prediabetes, thyroid nodules PERSONAL AND SOCIAL HISTORY: Nonsmoker. No chronic intake of alcoholic beverages. 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 Lives with daughters who are currently patient's caregivers. 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 sulfamethoxazole Allergy Mild RASH Verified 10/19/21 23:19 trimethoprim Allergy Mild RASH Verified 10/19/21 23:19 amlodipine Allergy legs swell Verified 10/19/21 23:19 severe azithromycin Allergy Unknown Verified 10/19/21 23:19 cefuroxime [From Ceftin] Allergy Diarrhea Verified 10/19/21 23:19 ipratropium Allergy Anaphylaxis Verified 10/19/21 23:19 Sulfa (Sulfonamide Allergy Difficulty Verified 10/19/21 23:19 Antibiotics) Breathing narcotic in general AdvReac Severe Hallucinati Uncoded 10/19/21 23:20 ng Home Medications Medication Instructions Recorded Confirmed Type allopurinol 100 mg tablet 200 mg PO QAM 02/19/19 10/19/21 History atorvastatin 40 mg tablet 40 mg PO PM 02/19/19 10/19/21 History azelastine 137 mcg (0.1 %) nasal 1 spray INTRANASAL BID 02/19/19 10/19/21 History spray aerosol budesonide 0.5 mg/2 mL suspension 0.5 mg INHALATION BID 02/19/19 10/19/21 History for nebulization carvedilol 25 mg tablet (Coreg) 12.5 mg PO BID 02/19/19 10/19/21 History cholecalciferol (vitamin D3) 25 2,000 unit PO 3XWK 02/19/19 10/19/21 History mcg (1,000 unit) capsule (Vitamin D3) escitalopram oxalate 10 mg tablet 5 mg PO QAM 02/19/19 10/19/21 History (Lexapro) fexofenadine 180 mg tablet 180 mg PO QAM 02/19/19 10/19/21 History levalbuterol HCl 1.25 mg/3 mL 1.25 mg INHALATION QID 02/19/19 10/19/21 History solution for nebulization (Xopenex) montelukast 10 mg tablet 10 mg PO PM 02/19/19 10/19/21 History nitroglycerin 0.4 mg sublingual 0.4 mg BUCCAL .UD PRN 02/19/19 10/19/21 History tablet (Nitrostat) pantoprazole 40 mg tablet,delayed 40 mg PO BID 02/19/19 10/19/21 History release (Protonix) sodium chloride 0.65 % nasal spray 2 spray INTRANASAL QID PRN 02/19/19 10/19/21 History aerosol (Saline Nasal) spironolactone 25 mg tablet 12.5 mg PO QAM 02/19/19 10/19/21 History tamoxifen 20 mg tablet 20 mg PO . ON HOLD 02/19/19 10/19/21 History triamcinolone acetonide 55 mcg 1 spray INTRANASAL BID 02/19/19 10/19/21 History nasal spray aerosol (Nasacort) isosorbide mononitrate 60 mg 60 mg PO HS 11/15/20 10/19/21 History tablet,extended release 24 hr levalbuterol tartrate 45 1 puff INHALATION Q4H PRN 11/15/20 10/19/21 History mcg/actuation aerosol inhaler acetaminophen 500 mg tablet 500 mg PO TID 05/19/21 10/19/21 History magnesium oxide 400 mg (241.3 mg 800 mg PO QAM 05/19/21 10/19/21 History magnesium) tablet sucralfate 100 mg/mL oral 10 ml PO TID 05/19/21 10/19/21 History suspension famotidine 20 mg tablet 20 mg PO BID 05/28/21 10/19/21 History benzonatate 100 mg capsule 100 mg PO TID PRN 09/24/21 10/19/21 History calcitriol 0.25 mcg capsule 0.25 mcg PO 3XWK 09/24/21 10/19/21 History clotrimazole-betamethasone 1 1 applic TOPICAL BID PRN 09/24/21 10/19/21 History %-0.05 % topical cream guaifenesin 600 mg tablet, 600 mg PO BID 09/24/21 10/19/21 History extended release 12 hr (Mucinex) hydralazine 10 mg tablet 10 mg PO TID PRN 09/24/21 10/19/21 History iron,carbonyl 65 mg-vitamin C 125 1 tab PO BID 09/24/21 10/19/21 History mg tablet,delayed release (Vitron-C) lidocaine HCl 2 % mucosal solution 1 applic TOPICAL DAILY PRN 09/24/21 10/19/21 History budesonide-formoterol HFA 160 2 puff INHALATION BID 10/19/21 10/19/21 History mcg-4.5 mcg/actuation aerosol inhaler (Symbicort) cefdinir 300 mg capsule 300 mg PO QAM 10/19/21 10/19/21 History docusate sodium 100 mg capsule 200 mg PO BID 10/19/21 10/19/21 History furosemide 40 mg tablet 60 mg PO UD 10/19/21 10/19/21 History levothyroxine 200 mcg tablet 200 mcg PO DAILYBB 10/19/21 10/19/21 History nystatin 100,000 unit/gram topical 1 applic TOPICAL BID PRN 10/19/21 10/19/21 History powder nystatin 100,000 unit/mL oral 10 ml BUCCAL BID 10/19/21 10/19/21 History suspension potassium chloride 10 mEq 10 meq PO UD 10/19/21 10/19/21 History tablet,extended release prednisone 5 mg tablet 5 mg PO DAILY 10/19/21 10/19/21 History warfarin 2 mg tablet 1 mg PO . CURRENTLY ON HOLD 10/19/21 10/19/21 History Past Med/Surg History Medical History Anemia recent hospitalization at [facility] 2 weeks ago Anticoagulated on Coumadin Anxiety Asthma, moderate persistent not well controlled, frequent nebulizer use Chronic diastolic CHF (congestive heart failure) follows with Dr. Benjamin CKD (chronic kidney disease), stage III follows with Dr. Hernandez COPD (chronic obstructive pulmonary disease) not well controlled Dyslipidemia GERD (gastroesophageal reflux disease) GI bleed recent hospitalization at [facility] > 1 unit blood Gout Hard of hearing bilat aides Heart disease "nonobstructive disease per cath 2011" Hiatal hernia History of breast cancer x2 > > no chemo just tamxifen for assisted use, no surgeries Hypothyroidism (acquired) "s/p thyroidectomy and radioiodine therapy for cancer treatment" Hysterectomy (02/22/13) IBS (irritable bowel syndrome) Labile hypertension Osteoporosis (02/22/13) PAF (paroxysmal atrial fibrillation) hx of 10 yrs ago > no longer on ASA or Coumadin as of 2 weeks ago 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 Father , Passed age 50 of [place] No problems noted. Brother Lung fibrosis Brother , Passed age 63 of allergic reaction to antibiotics No problems noted. Sister , Passed age 83 of "electrolyte disturbances" DCIS (ductal carcinoma in situ) Sister , Passed age 84 from post surgical complications No problems noted. Sister No problems noted. Daughter No problems noted. Daughter No problems noted. Son No problems noted. 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) Other Information That Helps Us Care for You: No Feels Safe at Home: Yes Safety Concerns: Feels Safe At This Time caffeine: No during the past year weight has: remained stable Assistive Devices: Denture - Upper, Denture - Lower and Walker Review of Systems Review of Systems: As per HPI, all other systems reviewed and negative Physical Exam Physical Exam: GENERAL: Slightly uncomfortable, obese, audible wheezing SKIN: Pallor,, warm HEENT: Pale palpebral conjunctivae, no ptosis, dry buccal mucosa NECK : Supple, short neck, no tenderness CHEST : Decreased breath sounds, occasional expiratory wheezes, no tenderness HEART : RRR, no obvious murmurs ABDOMEN: Some distention, nontender EXTREMITIES : Tender RUE swelling with decreased right shoulder range of motion, minimal LE swelling, no LE tenderness, no other conspicuous deformities noted NEUROLOGIC : Coherent, no facial asymmetry, slightly hard of hearing, no other gross focality Results & Data Results & Data ([facility]) Vital Signs (Past 12 Hours) Vital Signs Temp Pulse Pulse Resp BP BP Pulse Ox 10/19/21 22:14 84 18 123/70 96 10/19/21 21:30 18 98 10/19/21 20:57 146/74 H 10/19/21 20:30 86 18 98 10/19/21 20:00 86 18 98 10/19/21 19:45 88 18 98 10/19/21 19:30 90 18 98 10/19/21 19:18 18 98 10/19/21 19:15 84 18 10/19/21 19:00 87 18 98 10/19/21 18:45 85 18 98 10/19/21 17:43 36.2 C L 84 14 156/82 H 98 Laboratory Results Laboratory Results WBC 12.98 K/uL (4.8-10.8) H 10/19/21 19:45 RBC 3.37 M/uL (4.2-5.4) L 10/19/21 19:45 Hgb 10.0 g/dL (12.0-16.0) L 10/19/21 19:45 Hct 31.2 % (37-47) L 10/19/21 19:45 MCV 92.6 fL (80-100) 10/19/21 19:45 MCH 29.7 pg (25-34) 10/19/21 19:45 MCHC 32.1 g/dL (32-36) 10/19/21 19:45 RDW Std Deviation 52.4 fL (36.4-46.3) H 10/19/21 19:45 RDW Coeff of Chrissy 15.6 % (11.5-14.5) H 10/19/21 19:45 Plt Count 313 K/uL (130-400) 10/19/21 19:45 MPV 10.3 fL (7.4-10.4) 10/19/21 19:45 Immature Gran % (Auto) 0.4 % 10/19/21 19:45 Neut % (Auto) 77.9 % 10/19/21 19:45 Lymph % (Auto) 9.2 % 10/19/21 19:45 Taney % (Auto) 11.7 % 10/19/21 19:45 Eos % (Auto) 0.7 % 10/19/21 19:45 Baso % (Auto) 0.1 % 10/19/21 19:45 Neut # (Auto) 10.12 K/uL (1.4-6.5) H 10/19/21 19:45 Lymph # (Auto) 1.19 K/uL (1.2-3.4) L 10/19/21 19:45 Taney # (Auto) 1.52 K/uL (0.11-0.59) H 10/19/21 19:45 Eos # (Auto) 0.09 K/uL (0-0.5) 10/19/21 19:45 Baso # (Auto) 0.01 K/uL (0-0.2) 10/19/21 19:45 Immature Gran # (Auto) 0.05 K/uL (0.00-0.02) H 10/19/21 19:45 PT 51.4 Seconds (9.0-12.0) H 10/19/21 19:45 INR 5.3 (0.9-1.1) H 10/19/21 19:45 APTT 55.3 Seconds (21.0-31.0) H* 10/19/21 19:45 PTT Ratio 2.0 10/19/21 19:45 Sodium 134 mmol/L (136-145) L 10/19/21 19:45 Potassium 4.2 mmol/L (3.5-5.1) 10/19/21 19:45 Chloride 93 mmol/L (98-107) L 10/19/21 19:45 Carbon Dioxide 33 mmol/L (21-32) H 10/19/21 19:45 Anion Gap 8 (3-11) 10/19/21 19:45 BUN 54 mg/dl (6-23) H 10/19/21 19:45 Creatinine 1.66 mg/dl (0.6-1.2) H 10/19/21 19:45 Est Cr Clr Drug Dosing 19.7 ml/min 10/19/21 19:45 Est GFR ( Amer) 31.3 ml/min 10/19/21 19:45 Est GFR (Non-Af Amer) 27.0 ml/min 10/19/21 19:45 BUN/Creatinine Ratio 32.5 (10-20) H 10/19/21 19:45 Glucose 200 mg/dl (70-99(Fasting)) H 10/19/21 19:45 Lactate 1.0 mmol/L (0.4-2.0) 10/19/21 19:45 Calcium 9.1 mg/dl (8.5-10.1) 10/19/21 19:45 Magnesium 2.0 mg/dl (1.7-2.4) 10/19/21 19:45 Total Bilirubin 0.4 mg/dl (0.2-1.0) 10/19/21 19:45 AST 133 U/L (13-39) H 10/19/21 19:45 ALT 118 U/L (7-52) H 10/19/21 19:45 Alkaline Phosphatase 155 U/L (34-104) H 10/19/21 19:45 Total Protein 6.3 gm/dl (6.0-8.3) 10/19/21 19:45 Albumin 2.9 gm/dl (3.4-5.0) L 10/19/21 19:45 Globulin 3.4 gm/dl (2.5-4.0) 10/19/21 19:45 Albumin/Globulin Ratio 0.9 (0.9-2) 10/19/21 19:45 Procalcitonin 0.74 ng/ml (0-0.5) H 10/19/21 19:45 Urine Color Yellow 10/19/21 18:54 Urine Appearance Cloudy (Clear) A 10/19/21 18:54 Urine pH 5.0 (4.5-7.5) 10/19/21 18:54 Ur Specific Gallagher 1.015 (1.000-1.030) 10/19/21 18:54 Urine Protein Trace (Negative) H 10/19/21 18:54 Urine Glucose (UA) Negative (Negative) 10/19/21 18:54 Urine Ketones Negative (Negative) 10/19/21 18:54 Urine Blood Negative (Negative) 10/19/21 18:54 Urine Nitrite Negative (Negative) 10/19/21 18:54 Urine Bilirubin Negative (Negative) 10/19/21 18:54 Urine Urobilinogen Negative (Negative) 10/19/21 18:54 Ur Leukocyte Esterase 2+ (Negative) H 10/19/21 18:54 Urine WBC (Auto) >30 /hpf (0-5) H 10/19/21 18:54 Urine RBC (Auto) 0-4 /hpf (0-4) 10/19/21 18:54 U Hyaline Cast (Auto) 1-5 /lpf (0-5) 10/19/21 18:54 U Epithel Cells (Auto) >30 /lpf (0-5) H 10/19/21 18:54 Urine Bacteria (Auto) 1+ (Negative) H 10/19/21 18:54 Urine Yeast Budding (None Prsent) A 10/19/21 18:54 SARS-CoV-2, RNA, NAAT NEGATIVE (NEGATIVE) 10/19/21 19:01 Impressions Chest X-Ray 10/19/21 18:49 XR chest 1V portable HISTORY: 89 years-old Female SEPSIS acute sepsis COMPARISON: Chest radiograph 10/01/2021 TECHNIQUE: Portable AP view of the chest FINDINGS: Cardiac silhouette is enlarged. No pneumothorax, large pleural effusion or overt pulmonary edema. Unchanged right hemidiaphragmatic elevation. Moderate sized hiatal hernia with improved left basilar opacities. Degenerative changes of the shoulders and spine. IMPRESSION: 1. Cardiomegaly without pulmonary edema. 2. Moderate hiatal hernia with left basilar opacities suggestive of atelectasis. 3. Unchanged right hemidiaphragmatic elevation. ACT 112: Negative or not required by law. The above report was generated using voice recognition software. It may contain grammatical, syntax or spelling errors. Electronically signed by: Isaac Pierre M.D. 10/19/2021 8:[address] 10/19/21 18:56 CT head/brain wo con CLINICAL HISTORY: 89 years-old Female with confusion, elevated INR. Acutely altered mental status with elevated INR TECHNIQUE: Multiple axial CT images of the head were obtained without contrast. A dose lowering technique was utilized adhering to the principles of ALARA. CT DOSE: 537.48 mGy.cm COMPARISON: Head CT 10/01/2021 FINDINGS: No acute intracranial hemorrhage, midline shift, intracranial mass, hydrocephalus, territorial ischemia or abnormal extra-axial collection. Age- related involutional changes. Mild white matter hypodensities are suggestive of probable chronic microvascular ischemic disease. Cerebral vascular calcifica tions. The calvarium is intact. Prior bilateral lens repair. The paranasal sinuses, mastoid air cells, and middle ear cavities are clear. IMPRESSION: No acute intracranial abnormality. ACT 112: Negative or not required by law. The above report was generated using voice recognition software. It may contain grammatical, syntax or spelling errors. Electronically signed by: Isaac Pierre M.D. 10/19/2021 8:25 PM Diagnostic Findings RUE ultrasound initial read No evidence of deep vein thrombosis in the right upper extremity. Complex right shoulder collection measuring approximately5.5 x 5.9 x 2.4 cm. This could potentially represent a joint effusion. Additional right upper armcollection measuring up to 11.3 cm. This is nonspecific but could represent an abscess in the appropriate clinical scenario. Consider evaluation with CT. CT right shoulder initial read: No fracture or dislocation. Degenerative arthropathyis noted at the acromioclavicular and glenohumeral joints. There is subcutaneous edema along the superior aspect of the shoulder. There is some generalized soft tissue fullness surrounding the shoulder. Additionally, there is abnormal edema affecting the upper right tho there are abnormal air collections in the biceps musculature. Clinicallycorrelate as to whether this maybe secondaryto anyrecent procedure or maybe due to diffuse soft tissue infection. Further evaluation with MRI maybe helpful. CT abdomen pelvis initial read: Small gallstones. No pericholecystic edema or fluid. Moderatelylarge hiatus hernia. There is diverticulosis in the distal colon. There is an area in the mid to distal sigmoid colon which mayshowthickening though there is no clear edema in the surrounding fat to indicate diverticulitis in this area of the: Similar appearance 2021.. There is no evidence of small bowel obstruction. No abnormal fluid. EKG as per my dictation: Rate 75, NSR, 1 AVB, T wave abnormalities septal leads
[2021-10-20] MEDS ORDERED: PIPERACILLIN/TAZOBACTAM 4.5 GM/120 ML BAG IV ONE (00:04)
[2021-10-20] MEDS ORDERED: XOPENEX/ATROVENT 1.25mg/0.5MG NEB COMBO NEB STA (00:53)
[2021-10-20] MEDS ORDERED: PHYTONADIONE 5 MG TAB PO STA (00:53)
[2021-10-20] MEDS ORDERED: SUCRALFATE 1 GM/10 ML UDC PO STA (00:55)
[2021-10-20] MEDS ORDERED: LEVALBUTEROL 1.25MG/0.5ML NEB INH STA (00:59)
[2021-10-20] MEDS ORDERED: IPRATROPIUM BROMIDE NEB SOLN 0.02% 2.5 ML VIAL INH STA (01:00)
[2021-10-20] MEDS ORDERED: ACETAMINOPHEN 65 ML IV ONE (01:00)
[2021-10-20] MEDS ORDERED: SODIUM CHLORIDE 0.9% 1000ML 1,000 ML IV ONE (02:18)
[2021-10-20] MEDS ORDERED: PROMETHAZINE HCL 6.25 MG in SODIUM CHLORIDE 0.9% 50 ML IV PRN (02:18)
[2021-10-20] MEDS ORDERED: ACETAMINOPHEN 325 MG TAB PO PRN (02:18)
[2021-10-20] MEDS ORDERED: ACETAMINOPHEN W/CODEINE #3 1 TAB PO PRN ×2 (02:18→04:51)
[2021-10-20] MEDS ORDERED: LEVALBUTEROL HCL 1.25 MG/3 ML NEB ONE (02:38)
[2021-10-20] MEDS: LEVOTHYROXINE SODIUM 200 MCG TABLET PO SCH (05:02)
[2021-10-20] MEDS: ACETAMINOPHEN 1000 MG/100 ML IV IV PRN (06:21)
[2021-10-20 06:58] LABS: Basophils # (auto) 0.02 K/uL (0-0.2); Basophils % (auto) 0.2 %; Eosinophils # (auto) 0.17 K/uL (0-0.5); Eosinophils % (auto) 1.4 %; Hematocrit (blood only) 30.5 % (37-47); Hemoglobin 9.6 g/dL (12.0-16.0); Immature Granulocytes # (auto) 0.07 K/uL (0.00-0.02); Immature Granulocytes % (auto) 0.6 %; Lymphocytes # (auto) 1.33 K/uL (1.2-3.4); Lymphocytes % (auto) 10.7 %; Mean Corpuscular Hemoglobin 28.7 pg (25-34); Mean Corpuscular Hgb Conc 31.5 g/dL (32-36); Monocytes # (auto) 1.29 K/uL (0.11-0.59); Monocytes % (auto) 10.3 %; Neutrophils % (auto) 76.8 %; Platelet Count 313 K/uL (130-400); RDW Coefficient of Variation 15.8 % (11.5-14.5); RDW Standard Deviation 52.3 fL (36.4-46.3); Red Blood Count 3.35 M/uL (4.2-5.4); White Blood Count 12.48 K/uL (4.8-10.8)
[2021-10-20] MEDS: BUDESONIDE 0.5 MG/2 ML VIAL (PULMICORT) INH SCH ×2 (07:01→19:13)
[2021-10-20] MEDS: LEVALBUTEROL HCL 1.25 MG/3 ML NEB INH SCH ×4 (07:01→19:13)
[2021-10-20 07:08] LABS: Albumin Globulin Ratio 0.8 (0.9-2); Albumin Level 2.6 gm/dl (3.4-5.0); BUN Creatinine Ratio 32.6 (10-20); Bilirubin,Total 0.4 mg/dl (0.2-1.0); Calcium 8.9 mg/dl (8.5-10.1); Creatinine Clr Calc Pharmacy 22.3 ml/min; Est GFR (African American) 37.2 ml/min; Est GFR (Non-African American) 32.1 ml/min; Globulin 3.2 gm/dl (2.5-4.0); Potassium 3.8 mmol/L (3.5-5.1); Total Protein 5.8 gm/dl (6.0-8.3)
[2021-10-20 07:10] LABS: INR 4.6 (0.9-1.1); Prothrombin Time 45.5 Seconds (9.0-12.0)
--- NOTE | 2021-10-20 07:36 | Ultrasound Report ---
US venous doppler UE RT CLINICAL HISTORY: redness swelling RUE PROCEDURE: Right upper extremity real-time compression venous ultrasound with Duplex and Color Dopple r imaging. FINDINGS: Utilizing real-time ultrasonic imaging multiple real time high-resolution ultrasonic images of the de ep venous system were performed from the forearm through the subclavian vein including evaluation of the jugular vein. Compression real time ultrasonic imaging was performed in addition to color Dopple r imaging and duplex Doppler ultrasound with velocity spectral profile analysis. There is normal compressibility of the deep venous system from the forearm through the subclavian vei n. Normal vascular flow is currently identified. No evidence of superficial thrombosis is identified. A complex fluid collection is seen in the right shoulder measuring 5.5 x 3.7 x 5.9 cm. A fluid colle ction is seen in the anterior arm and the area of swelling measuring 11.3 cm, extending proximal to t he matter Impression: 1. No evidence of deep venous thrombus. 2. Fluid collection in the right shoulder, possibly representing a joint effusion. Anterior right up per arm fluid collection as which is nonspecific but may represent hematoma or abscess. ACT 112: Negative or not required by law. Electronically signed by: Ayo Simon M.D. 10/20/2021 7:35 AM
[2021-10-20 07:58] LABS: Estimated Average Glucose 148 mg/dl; Hemoglobin A1C 6.8 % (4.5-5.6)
--- NOTE | 2021-10-20 08:08 | CT Scan Report ---
CT shoulder RT wo con CLINICAL HISTORY: Right shoulder pain and swelling COMPARISON STUDY: No standard radiographs provided for comparison CT DOSE: 545.78 mGy.cm TECHNIQUE: Standard CT of the right is performed without IV contrast. Multiplanar reconstruction is p erformed. A dose lowering technique was utilized adhering to the principles of ALARA. FINDINGS: Bones: Bones are osteopenic. There is no evidence for an acute fracture or dislocation. There are no lytic or blastic lesions. Joints: There is moderate to marked narrowing of the glenohumeral joint with marginal osteophyte form ation seen involving the humeral head. Moderate degenerative changes are also seen involving the acro mial clavicular joint with spur formation present. There is superior migration of the humeral head in relation to the glenoid with almost complete loss of the humeral head subacromial distance. These findings are most characteristic of a chronic rotator cuff tear. Soft tissues: There is evidence for diffuse swelling of the upper arm with a few air bubbles seen wit hin the biceps muscle of uncertain etiology. Clinical correlation is necessary. There are no focal fl uid collections. IMPRESSION: 1. No acute osseous pathology. 2. Osteopenia and osteoarthritis. 3. Secondary findings of a chronic rotator cuff tear. 4. There are a few air bubbles present within the soft tissues of the upper arm of uncertain etiology . Clinical correlation is necessary. ACT 112: Negative or not required by law. Electronically signed by: Magdi Mitchell M.D. 10/20/2021 8:06 AM
--- NOTE | 2021-10-20 08:15 | CT Scan Report ---
CT abd pelvis wo con CLINICAL HISTORY: abd pain COMPARISON STUDY: 09/24/2021 CT DOSE: 1043.10 mGy.cm TECHNIQUE: Standard CT of the Abdomen and Pelvis was performed without IV contrast. The patient did not receive oral contrast. A dose lowering technique was utilized adhering to the principles of NEERAJ Carbone. FINDINGS: Lung base: The heart is enlarged with coronary artery calcification. There is interval decrease in le ft basilar atelectasis. Chronic pleural thickening is seen in the right lung base. Minimal dependent edema is seen at the lung bases. Abdominal cavity: There is no evidence for abdominal mass, adenopathy or ascites. Liver: The liver is homogeneous in attenuation on these limited noncontrast images.. Spleen: The spleen is homogeneous in attenuation on these limited noncontrast images. Pancreas: The pancreas is homogeneous in attenuation on these limited noncontrast images. Gall Bladder: There is again cholelithiasis with no CT evidence for acute cholecystitis. Adrenal glands: The adrenal glands are normal in size and attenuation on these limited noncontrast im ages. Kidneys: The kidneys are homogeneous in attenuation on these limited noncontrast images. There is no evidence for gross renal mass, calculus or hydronephrosis bilaterally. Bowel: There is a moderate size hiatal hernia. The bowel loops are normally placed within the abdomen and pelvis without evidence for dilatation or obstruction. There is no evidence for mass lesion. The re is extensive sigmoid diverticulosis without evidence for diverticulitis. There are no inflammatory changes present. There is no evidence for free air. Bladder: There is no evidence for focal bladder wall thickening, calculus or diverticulum. : There is no evidence for pelvic mass or adenopathy. The patient is status post hysterectomy. Vasculature: There is no evidence for focal aneurysmal dilatation of the abdominal aorta. Extensive a therosclerotic calcification is present. Osseous structures: There is no acute osseous pathology. Degenerative changes are seen within the spi ne. IMPRESSION: 1. Compared to previous examination, there has been interval resolution of left basilar atelectasis. 2. There is again cholelithiasis with no CT evidence for acute cholecystitis. 3. There is again diffuse sigmoid diverticulosis without evidence for diverticulitis. 4. Moderate size hiatal hernia is again seen. 5. Additional nonacute findings are delineated above. ACT 112: Negative or not required by law. Electronically signed by: Magdi Mitchell M.D. 10/20/2021 8:13 AM
[2021-10-20] MEDS: PANTOprazole 40 MG TAB PO SCH ×2 (08:20→21:01)
[2021-10-20] MEDS: FEXOFENADINE HCL 180 MG TAB PO SCH (08:21)
[2021-10-20] MEDS: ESCITALOPRAM OXALATE 10 MG TAB PO SCH (08:21)
[2021-10-20] MEDS: AZELASTINE HCL 0.1% NASAL 200 SPRAYS/27,400 MCG BTL SCH ×2 (08:21→21:01)
[2021-10-20] MEDS: DOCUSATE SODIUM 100 MG CAP PO SCH ×2 (08:21→21:02)
[2021-10-20] MEDS: FAMOTIDINE 20 MG TAB PO SCH ×2 (08:21→21:01)
[2021-10-20] MEDS: predniSONE 5 MG TAB PO SCH (08:21)
[2021-10-20] MEDS: carvediloL 12.5 MG TAB PO SCH ×2 (08:22→21:02)
[2021-10-20] MEDS: FLUTICASONE/VILANTEROL 200/25MCG 14 PUFFS/INHALER INH SCH (08:22)
[2021-10-20] MEDS: guaiFENesin 600 MG TABCR PO SCH ×2 (08:22→21:03)
[2021-10-20] MEDS: TRIAMCINOLONE ACET NASAL SPRAY 10.8ML BTL SCH ×2 (08:23→21:04)
[2021-10-20] MEDS: DOXYCYCLINE HYCLATE 100 MG in DEXTROSE 5% 100 ML IV SCH ×2 (08:23→22:02)
[2021-10-20] MEDS ORDERED: DOXYCYCLINE HYCLATE 100 MG CAP PO SCH (09:00)
[2021-10-20] MEDS: PIPERACILLIN/TAZOBACTAM 3.375 GM in DEXTROSE 5% 100 ML IV SCH (10:19)
[2021-10-20] MEDS: FUROSEMIDE 20 MG TAB PO SCH ×2 (11:10→21:03)
[2021-10-20] MEDS: POTASSIUM CHLORIDE 10 MEQ TABCR PO SCH ×2 (11:10→21:01)
--- NOTE | 2021-10-20 12:50 | Orthopedic Consultation ---
Date of Consultation October 20, 2021 Assessment & Plan (1) Cellulitis of arm, right: Patient appears to be improving on IV antibiotics, will continue to monitor and see how she responds. Do not see any overt abscess. Very small air bubbles may be due to recent line placement. Will obtain x-ray of the right humerus - No air bubbles noted. Again noted Rotator cuff arthropathy. Will obtain baseline ESR and CRP. RICE Continue pain control. Continue care per primary service. Will continue to follow. Present on Admission?: Yes History of Present Illness Reason for Consultation: RUE swelling Requesting Physician: Minda Hayden MD Attending Physician: Doug Angulo MD History of Present Illness 89 yo female with h/o rotator cuff arthropathy, multiple medical problems and 5 day h/o pain in the RUE after being stuck on the toilet. She had been discharged from hospital 2 weeks ago for bilateral PE's and had a line placed in the RUE, that required ultrasound guidance. Family noticed increased swelling and erythema from the neck shoulder area and brought to ER. They have noticed significant improvement in erythema since being re-admitted and started on antibiotics. 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, hemmer chainstitch recommended not to take sulfamethoxazole Allergy Mild RASH Verified 10/19/21 23:19 trimethoprim Allergy Mild RASH Verified 10/19/21 23:19 amlodipine Allergy legs swell Verified 10/19/21 23:19 severe azithromycin Allergy Unknown Verified 10/19/21 23:19 cefuroxime [From Ceftin] Allergy Diarrhea Verified 10/19/21 23:19 ipratropium Allergy Anaphylaxis Verified 10/19/21 23:19 Sulfa (Sulfonamide Allergy Difficulty Verified 10/19/21 23:19 Antibiotics) Breathing narcotic in general AdvReac Severe Hallucinati Uncoded 10/19/21 23:20 ng Home Medications Medication Instructions Recorded Confirmed Type allopurinol 100 mg tablet 200 mg PO QAM 02/19/19 10/19/21 History atorvastatin 40 mg tablet 40 mg PO PM 02/19/19 10/19/21 History azelastine 137 mcg (0.1 %) nasal 1 spray INTRANASAL BID 02/19/19 10/19/21 History spray aerosol budesonide 0.5 mg/2 mL suspension 0.5 mg INHALATION BID 02/19/19 10/19/21 History for nebulization carvedilol 25 mg tablet (Coreg) 12.5 mg PO BID 02/19/19 10/19/21 History cholecalciferol (vitamin D3) 25 2,000 unit PO 3XWK 02/19/19 10/19/21 History mcg (1,000 unit) capsule (Vitamin D3) escitalopram oxalate 10 mg tablet 5 mg PO QAM 02/19/19 10/19/21 History (Lexapro) fexofenadine 180 mg tablet 180 mg PO QAM 02/19/19 10/19/21 History levalbuterol HCl 1.25 mg/3 mL 1.25 mg INHALATION QID 02/19/19 10/19/21 History solution for nebulization (Xopenex) montelukast 10 mg tablet 10 mg PO PM 02/19/19 10/19/21 History nitroglycerin 0.4 mg sublingual 0.4 mg BUCCAL .UD PRN 02/19/19 10/19/21 History tablet (Nitrostat) pantoprazole 40 mg tablet,delayed 40 mg PO BID 02/19/19 10/19/21 History release (Protonix) sodium chloride 0.65 % nasal spray 2 spray INTRANASAL QID PRN 02/19/19 10/19/21 History aerosol (Saline Nasal) spironolactone 25 mg tablet 12.5 mg PO QAM 02/19/19 10/19/21 History tamoxifen 20 mg tablet 20 mg PO . ON HOLD 02/19/19 10/19/21 History triamcinolone acetonide 55 mcg 1 spray INTRANASAL BID 02/19/19 10/19/21 History nasal spray aerosol (Nasacort) isosorbide mononitrate 60 mg 60 mg PO HS 11/15/20 10/19/21 History tablet,extended release 24 hr levalbuterol tartrate 45 1 puff INHALATION Q4H PRN 11/15/20 10/19/21 History mcg/actuation aerosol inhaler acetaminophen 500 mg tablet 500 mg PO TID 05/19/21 10/19/21 History magnesium oxide 400 mg (241.3 mg 800 mg PO QAM 05/19/21 10/19/21 History magnesium) tablet sucralfate 100 mg/mL oral 10 ml PO TID 05/19/21 10/19/21 History suspension famotidine 20 mg tablet 20 mg PO BID 05/28/21 10/19/21 History benzonatate 100 mg capsule 100 mg PO TID PRN 09/24/21 10/19/21 History calcitriol 0.25 mcg capsule 0.25 mcg PO 3XWK 09/24/21 10/19/21 History clotrimazole-betamethasone 1 1 applic TOPICAL BID PRN 09/24/21 10/19/21 History %-0.05 % topical cream guaifenesin 600 mg tablet, 600 mg PO BID 09/24/21 10/19/21 History extended release 12 hr (Mucinex) hydralazine 10 mg tablet 10 mg PO TID PRN 09/24/21 10/19/21 History iron,carbonyl 65 mg-vitamin C 125 1 tab PO BID 09/24/21 10/19/21 History mg tablet,delayed release (Vitron-C) lidocaine HCl 2 % mucosal solution 1 applic TOPICAL DAILY PRN 09/24/21 10/19/21 History budesonide-formoterol HFA 160 2 puff INHALATION BID 10/19/21 10/19/21 History mcg-4.5 mcg/actuation aerosol inhaler (Symbicort) cefdinir 300 mg capsule 300 mg PO QAM 10/19/21 10/19/21 History docusate sodium 100 mg capsule 200 mg PO BID 10/19/21 10/19/21 History furosemide 40 mg tablet 60 mg PO UD 10/19/21 10/19/21 History levothyroxine 200 mcg tablet 200 mcg PO DAILYBB 10/19/21 10/19/21 History nystatin 100,000 unit/gram topical 1 applic TOPICAL BID PRN 10/19/21 10/19/21 History powder nystatin 100,000 unit/mL oral 10 ml BUCCAL BID 10/19/21 10/19/21 History suspension potassium chloride 10 mEq 10 meq PO UD 10/19/21 10/19/21 History tablet,extended release prednisone 5 mg tablet 5 mg PO DAILY 10/19/21 10/19/21 History warfarin 2 mg tablet 1 mg PO . CURRENTLY ON HOLD 10/19/21 10/19/21 History Patient History Medical History Anemia recent hospitalization at [facility] 2 weeks ago Anticoagulated on Coumadin Anxiety Asthma, moderate persistent not well controlled, frequent nebulizer use Chronic diastolic CHF (congestive heart failure) follows with Dr. Benjamin CKD (chronic kidney disease), stage III follows with Dr. 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, no surgeries Hypothyroidism (acquired) "s/p thyroidectomy and radioiodine therapy for cancer treatment" Hysterectomy (02/22/13) IBS (irritable bowel syndrome) Labile hypertension Osteoporosis (02/22/13) PAF (paroxysmal atrial fibrillation) hx of 10 yrs ago > no longer on ASA or Coumadin as of 2 weeks ago 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 Father , Passed age 50 of [place] No problems noted. Brother Lung fibrosis Brother , Passed age 63 of allergic reaction to antibiotics No problems noted. Sister , Passed age 83 of "electrolyte disturbances" DCIS (ductal carcinoma in situ) Sister , Passed age 84 from post surgical complications No problems noted. Sister No problems noted. Daughter No problems noted. Daughter No problems noted. Son No problems noted. 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 Motor to median, radial, ulnar, AIN, PIN, and musculocutaneous nerves intact. Limited ROM of the shoulder secondarily to pain (Patient and family not she had limited ROM before). + swelling Upper arm to hand. + Erythema mid upper arm to wrist. Soft tissue mass over lateral aspect of Deltoid (family notes that has been there for long time). + tenderness to palpation about the biceps. Results & Data ([facility]) Vital Signs (Past 12 Hours) Vital Signs Temp Pulse Pulse Resp BP Pulse Ox 10/20/21 12:14 36.9 C 83 16 144/64 H 98 10/20/21 10:45 84 16 98 10/20/21 08:00 36.8 C 79 18 152/76 H 96 10/20/21 07:02 88 16 99 10/20/21 02:46 84 18 98 10/20/21 02:18 36.9 C 85 85 17 130/68 97 10/20/21 01:00 87 21 96 Diagnostic Findings Laboratory Results WBC 12.48 K/uL (4.8-10.8) H 10/20/21 06:04 RBC 3.35 M/uL (4.2-5.4) L 10/20/21 06:04 Hgb 9.6 g/dL (12.0-16.0) L 10/20/21 06:04 Hct 30.5 % (37-47) L 10/20/21 06:04 MCV 91.0 fL (80-100) 10/20/21 06:04 MCH 28.7 pg (25-34) 10/20/21 06:04 MCHC 31.5 g/dL (32-36) L 10/20/21 06:04 RDW Std Deviation 52.3 fL (36.4-46.3) H 10/20/21 06:04 RDW Coeff of Chrissy 15.8 % (11.5-14.5) H 10/20/21 06:04 Plt Count 313 K/uL (130-400) 10/20/21 06:04 MPV 10.0 fL (7.4-10.4) 10/20/21 06:04 Immature Gran % (Auto) 0.6 % 10/20/21 06:04 Neut % (Auto) 76.8 % 10/20/21 06:04 Lymph % (Auto) 10.7 % 10/20/21 06:04 [place] % (Auto) 10.3 % 10/20/21 06:04 Eos % (Auto) 1.4 % 10/20/21 06:04 Baso % (Auto) 0.2 % 10/20/21 06:04 Neut # (Auto) 9.60 K/uL (1.4-6.5) H 10/20/21 06:04 Lymph # (Auto) 1.33 K/uL (1.2-3.4) 10/20/21 06:04 [place] # (Auto) 1.29 K/uL (0.11-0.59) H 10/20/21 06:04 Eos # (Auto) 0.17 K/uL (0-0.5) 10/20/21 06:04 Baso # (Auto) 0.02 K/uL (0-0.2) 10/20/21 06:04 Immature Gran # (Auto) 0.07 K/uL (0.00-0.02) H 10/20/21 06:04 PT 45.5 Seconds (9.0-12.0) H 10/20/21 06:04 INR 4.6 (0.9-1.1) H 10/20/21 06:04 APTT 55.3 Seconds (21.0-31.0) H* 10/19/21 19:45 PTT Ratio 2.0 10/19/21 19:45 Sodium 135 mmol/L (136-145) L 10/20/21 06:04 Potassium 3.8 mmol/L (3.5-5.1) 10/20/21 06:04 Chloride 94 mmol/L (98-107) L 10/20/21 06:04 Carbon Dioxide 32 mmol/L (21-32) 10/20/21 06:04 Anion Gap 9 (3-11) 10/20/21 06:04 BUN 47 mg/dl (6-23) H 10/20/21 06:04 Creatinine 1.44 mg/dl (0.6-1.2) H 10/20/21 06:04 Est Cr Clr Drug Dosing 22.3 ml/min 10/20/21 06:04 Est GFR ( Amer) 37.2 ml/min 10/20/21 06:04 Est GFR (Non-Af Amer) 32.1 ml/min 10/20/21 06:04 BUN/Creatinine Ratio 32.6 (10-20) H 10/20/21 06:04 Glucose 99 mg/dl (70-99(Fasting)) 10/20/21 06:04 Estimat Average Glucose 148 mg/dl 10/19/21 19:45 Hemoglobin A1c 6.8 % (4.5-5.6) H 10/19/21 19:45 Lactate 1.0 mmol/L (0.4-2.0) 10/19/21 19:45 Calcium 8.9 mg/dl (8.5-10.1) 10/20/21 06:04 Magnesium 2.0 mg/dl (1.7-2.4) 10/19/21 19:45 Total Bilirubin 0.4 mg/dl (0.2-1.0) 10/20/21 06:04 AST 85 U/L (13-39) H 10/20/21 06:04 ALT 91 U/L (7-52) H 10/20/21 06:04 Alkaline Phosphatase 122 U/L (34-104) H 10/20/21 06:04 Total Creatine Kinase 12 U/L (26-192) L 10/19/21 19:45 Total Protein 5.8 gm/dl (6.0-8.3) L 10/20/21 06:04 Albumin 2.6 gm/dl (3.4-5.0) L 10/20/21 06:04 Globulin 3.2 gm/dl (2.5-4.0) 10/20/21 06:04 Albumin/Globulin Ratio 0.8 (0.9-2) L 10/20/21 06:04 Procalcitonin 0.74 ng/ml (0-0.5) H 10/19/21 19:45 TSH 1.933 uIu/ml (0.300-4.500) 10/19/21 19:45 Urine Color Yellow 10/19/21 18:54 Urine Appearance Cloudy (Clear) A 10/19/21 18:54 Urine pH 5.0 (4.5-7.5) 10/19/21 18:54 Ur Specific [place] 1.015 (1.000-1.030) 10/19/21 18:54 Urine Protein Trace (Negative) H 10/19/21 18:54 Urine Glucose (UA) Negative (Negative) 10/19/21 18:54 Urine Ketones Negative (Negative) 10/19/21 18:54 Urine Blood Negative (Negative) 10/19/21 18:54 Urine Nitrite Negative (Negative) 10/19/21 18:54 Urine Bilirubin Negative (Negative) 10/19/21 18:54 Urine Urobilinogen Negative (Negative) 10/19/21 18:54 Ur Leukocyte Esterase 2+ (Negative) H 10/19/21 18:54 Urine WBC (Auto) >30 /hpf (0-5) H 10/19/21 18:54 Urine RBC (Auto) 0-4 /hpf (0-4) 10/19/21 18:54 U Hyaline Cast (Auto) 1-5 /lpf (0-5) 10/19/21 18:54 U Epithel Cells (Auto) >30 /lpf (0-5) H 10/19/21 18:54 Urine Bacteria (Auto) 1+ (Negative) H 10/19/21 18:54 Urine Yeast Budding (None Prsent) A 10/19/21 18:54 SARS-CoV-2, RNA, NAAT NEGATIVE (NEGATIVE) 10/19/21 19:01 Blood Type A Positive 10/20/21 06:04 Antibody Screen NEGATIVE 10/20/21 06:04 Impressions Chest X-Ray 10/19/21 18:49 XR chest 1V portable HISTORY: 89 years-old Female SEPSIS acute sepsis COMPARISON: Chest radiograph 10/01/2021 TECHNIQUE: Portable AP view of the chest FINDINGS: Cardiac silhouette is enlarged. No pneumothorax, large pleural effusion or overt pulmonary edema. Unchanged right hemidiaphragmatic elevation. Moderate sized hiatal hernia with improved left basilar opacities. Degenerative changes of the shoulders and spine. IMPRESSION: 1. Cardiomegaly without pulmonary edema. 2. Moderate hiatal hernia with left basilar opacities suggestive of atelectasis. 3. Unchanged right hemidiaphragmatic elevation. ACT 112: Negative or not required by law. The above report was generated using voice recognition software. It may contain grammatical, syntax or spelling errors. Electronically signed by: Isaac Pierre M.D. 10/19/2021 8:[address] 10/19/21 18:56 CT head/brain wo con CLINICAL HISTORY: 89 years-old Female with confusion, elevated INR. Acutely altered mental status with elevated INR TECHNIQUE: Multiple axial CT images of the head were obtained without contrast. A dose lowering technique was utilized adhering to the principles of ALARA. CT DOSE: 537.48 mGy.cm COMPARISON: Head CT 10/01/2021 FINDINGS: No acute intracranial hemorrhage, midline shift, intracranial mass, hydroc ephalus, territorial ischemia or abnormal extra-axial collection. Age-related involutional changes. Mild white matter hypodensities are suggestive of probable chronic microvascular ischemic disease. Cerebral vascular calcifications. The calvarium is intact. Prior bilateral lens repair. The paranasal sinuses, mastoid air cells, and middle ear cavities are clear. IMPRESSION: No acute intracranial abnormality. ACT 112: Negative or not required by law. The above report was generated using voice recognition software. It may contain grammatical, syntax or spelling errors. Electronically signed by: Isaac Pierre M.D. 10/19/2021 8:25 PM Venous Doppler Study 10/19/21 18:56 US venous doppler UE RT CLINICAL HISTORY: redness swelling RUE PROCEDURE: Right upper extremity real-time compression venous ultrasound with Duplex and Color Doppler imaging. FINDINGS: Utilizing real-time ultrasonic imaging multiple real time high-resolution ultrasonic images of the deep venous system were performed from the forearm through the subclavian vein including evaluation of the jugular vein. Compression real time ultrasonic imaging was performed in addition to color Doppler imaging and duplex Doppler ultrasound with velocity spectral profile analysis. There is normal compressibility of the deep venous system from the forearm through the subclavian vein. Normal vascular flow is currently identified. No evidence of superficial thrombosis is identified. A complex fluid collection is seen in the right shoulder measuring 5.5 x 3.7 x 5.9 cm. A fluid collection is seen in the anterior arm and the area of swelling measuring 11.3 cm, extending proximal to the matter Impression: 1. No evidence of deep venous thrombus. 2. Fluid collection in the right shoulder, possibly representing a joint effusion. Anterior right upper arm fluid collection as which is nonspecific but may represent hematoma or abscess. ACT 112: Negative or not required by law. Electronically signed by: Ayo Simon M.D. 10/20/2021 7:35 AM Abdomen/Pelvis CT 10/20/21 00:53 CT abd pelvis wo con CLINICAL HISTORY: abd pain COMPARISON STUDY: 09/24/2021 CT DOSE: 1043.10 mGy.cm TECHNIQUE: Standard CT of the Abdomen and Pelvis was performed without IV contrast. The patient did not receive oral contrast. A dose lowering technique was utilized adhering to the principles of ALARA. FINDINGS: Lung base: The heart is enlarged with coronary artery calcification. There is interval decrease in left basilar atelectasis. Chronic pleural thickening is seen in the right lung base. Minimal dependent edema is seen at the lung bases. Abdominal cavity: There is no evidence for abdominal mass, adenopathy or ascites. Liver: The liver is homogeneous in attenuation on these limited noncontrast images.. Spleen: The spleen is homogeneous in attenuation on these limited noncontrast images. Pancreas: The pancreas is homogeneous in attenuation on these limited noncontrast images. Gall Bladder: There is again cholelithiasis with no CT evidence for acute cholecystitis. Adrenal glands: The adrenal glands are normal in size and attenuation on these limited noncontrast images. Kidneys: The kidneys are homogeneous in attenuation on these limited noncontrast images. There is no evidence for gross renal mass, calculus or hydronephrosis b ilaterally. Bowel: There is a moderate size hiatal hernia. The bowel loops are normally placed within the abdomen and pelvis without evidence for dilatation or obstruction. There is no evidence for mass lesion. There is extensive sigmoid diverticulosis without evidence for diverticulitis. There are no inflammatory changes present. There is no evidence for free air. Bladder: There is no evidence for focal bladder wall thickening, calculus or diverticulum. : There is no evidence for pelvic mass or adenopathy. The patient is status post hysterectomy. Vasculature: There is no evidence for focal aneurysmal dilatation of the abdominal aorta. Extensive atherosclerotic calcification is present. Osseous structures: There is no acute osseous pathology. Degenerative changes are seen within the spine. IMPRESSION: 1. Compared to previous examination, there has been interval resolution of left basilar atelectasis. 2. There is again cholelithiasis with no CT evidence for acute cholecystitis. 3. There is again diffuse sigmoid diverticulosis without evidence for diverticulitis. 4. Moderate size hiatal hernia is again seen. 5. Additional nonacute findings are delineated above. ACT 112: Negative or not required by law. Electronically signed by: Magdi Mitchell M.D. 10/20/2021 8:[address] 10/20/21 00:53 CT shoulder RT wo con CLINICAL HISTORY: Right shoulder pain and swelling COMPARISON STUDY: No standard radiographs provided for comparison CT DOSE: 545.78 mGy.cm TECHNIQUE: Standard CT of the right is performed without IV contrast. Multi planar reconstruction is performed. A dose lowering technique was utilized adhering to the principles of ALARA. FINDINGS: Bones: Bones are osteopenic. There is no evidence for an acute fracture or dislocation. There are no lytic or blastic lesions. Joints: There is moderate to marked narrowing of the glenohumeral joint with marginal osteophyte formation seen involving the humeral head. Moderate degenerative changes are also seen involving the acromial clavicular joint with spur formation present. There is superior migration of the humeral head in relation to the glenoid with almost complete loss of the humeral head subacromial distance. These findings are most characteristic of a chronic rotator cuff tear. Soft tissues: There is evidence for diffuse swelling of the upper arm with a few air bubbles seen within the biceps muscle of uncertain etiology. Clinical correlation is necessary. There are no focal fluid collections. IMPRESSION: 1. No acute osseous pathology. 2. Osteopenia and osteoarthritis. 3. Secondary findings of a chronic rotator cuff tear. 4. There are a few air bubbles present within the soft tissues of the upper arm of uncertain etiology. Clinical correlation is necessary. ACT 112: Negative or not required by law. Electronically signed by: Mgadi Mitchell M.D. 10/20/2021 8:06 AM XR humerus RT 2V CLINICAL HISTORY: right arm pain. COMPARISON STUDY: No previous studies for comparison. TECHNIQUE: AP and lateral views FINDINGS: Bones: The bones are osteopenic. There is no evidence for an acute fracture or dislocation. There is no lytic or blastic lesion. Joints: Osteoarthritis is again seen at the shoulder. The elbow joint is maintained. Elevation of the humeral head in relation to the glenoid is again seen characteristic of a chronic rotator cuff tear. Soft tissues: There is no focal soft tissue abnormality. The small air bubbles seen on the CT cannot be identified radiographically. There is no radiopaque foreign body. IMPRESSION: 1. No acute osseous pathology. 2. Osteopenia, osteoarthritis and secondary findings of chronic rotator cuff tear. 3. The small air bubbles seen on CT are not visualized radiographically. If t here is concern for muscle infection, MRI of the arm without and with contrast would be recommended. ACT 112: Negative or not required by law.
--- NOTE | 2021-10-20 14:16 | XRay Report ---
XR humerus RT 2V CLINICAL HISTORY: right arm pain. COMPARISON STUDY: No previous studies for comparison. TECHNIQUE: AP and lateral views FINDINGS: Bones: The bones are osteopenic. There is no evidence for an acute fracture or dislocation. There is no lytic or blastic lesion. Joints: Osteoarthritis is again seen at the shoulder. The elbow joint is maintained. Elevation of the humeral head in relation to the glenoid is again seen characteristic of a chronic rotator cuff tear. Soft tissues: There is no focal soft tissue abnormality. The small air bubbles seen on the CT cannot be identified radiographically. There is no radiopaque foreign body. IMPRESSION: 1. No acute osseous pathology. 2. Osteopenia, osteoarthritis and secondary findings of chronic rotator cuff tear. 3. The small air bubbles seen on CT are not visualized radiographically. If there is concern for musc le infection, MRI of the arm without and with contrast would be recommended. ACT 112: Negative or not required by law. Electronically signed by: Magdi Mitchell M.D. 10/20/2021 2:15 PM
[2021-10-20] MEDS: ACETAMINOPHEN W/CODEINE #3 1 TAB PO SCH ×3 (14:49→20:58)
[2021-10-20] MEDS: traMADol HCL 50 MG TABLET PO PRN (15:19)
--- NOTE | 2021-10-20 17:49 | Communication Note ---
Date of Service: October 20, 2021 P was seen and examined for right shoulder pain. Lying in bed with no acute distress with daughter at bedside. Daughter said that few days ago pt developed pain in the RUE after being stuck on the toilet. Daughter said she was stuck on the toilet for about 90 minutes trying to pull herself up. Daughter said that RUE was erythematous and warm. Right shoulder CT showed evidence for diffuse swelling of the upper arm with a few air bubbles seen within the biceps muscle of uncertain etiology. Clinical correlation is necessary. There are no focal fluid collections. Xray humerus did not show the small air bubbles seen on CT. Ortho consulted. Continue IV abx with Zosyn and Doxycycline. WBC 12K. Elevated ESR 117 and CRP 25.6 Blood cx and urine cx pending. Continue to hold coumadin with INR 4.6. Clinically improves. Will continue monitor closely. MD Kev
[2021-10-20] MEDS: MONTELUKAST SODIUM 10 MG TABLET PO SCH (21:04)
[2021-10-20] MEDS: ISOSORBIDE MONO EXTENDED REL 60 MG TABCR PO SCH (21:04)
[2021-10-20] MEDS: NYSTATIN SUSP 500,000 U/5 ML UDC BUCCAL SCH (22:01)
[2021-10-21] MEDS: PIPERACILLIN/TAZOBACTAM 3.375 GM in DEXTROSE 5% 100 ML IV SCH ×3 (01:23→21:29)
[2021-10-21] MEDS: LEVOTHYROXINE SODIUM 200 MCG TABLET PO SCH (06:03)
[2021-10-21] MEDS: traMADol HCL 50 MG TABLET PO PRN (06:03)
--- NOTE | 2021-10-21 06:07 | Electrocardiogram Report ---
Test Reason : Blood Pressure : / mmHG Vent. Rate : 075 BPM Atrial Rate : 075 BPM P-R Int : 230 ms QRS Dur : 076 ms QT Int : 336 ms P-R-T Axes : 028 -19 039 degrees QTc Int : 375 ms Sinus rhythm with 1st degree A-V block Low voltage QRS Inferior infarct (cited on or before 30-DEC-2017) Cannot rule out Anterior infarct (cited on or before 02-SEP-2013) Abnormal ECG When compared with ECG of 24-SEP-2021 10:25, Premature atrial complexes are no longer Present Questionable change in initial forces of Septal leads Confirmed by Casey Nunes ([id number]) on 10/21/2021 6:06:59 AM Referred By: REFERRED SELF Confirmed By:Casey Nunes
[2021-10-21 06:46] LABS: Hematocrit (blood only) 28.3 % (37-47); Hemoglobin 9.1 g/dL (12.0-16.0); Mean Corpuscular Hemoglobin 29.6 pg (25-34); Mean Corpuscular Hgb Conc 32.2 g/dL (32-36); Mean Corpuscular Volume 92.2 fL (80-100); Mean Platelet Volume 9.9 fL (7.4-10.4); Platelet Count 370 K/uL (130-400); RDW Coefficient of Variation 15.8 % (11.5-14.5); RDW Standard Deviation 52.7 fL (36.4-46.3); Red Blood Count 3.07 M/uL (4.2-5.4); White Blood Count 13.61 K/uL (4.8-10.8)
[2021-10-21 06:58] LABS: INR 2.8 (0.9-1.1); Prothrombin Time 28.2 Seconds (9.0-12.0)
[2021-10-21 07:01] LABS: Albumin Globulin Ratio 0.8 (0.9-2); Albumin Level 2.5 gm/dl (3.4-5.0); BUN Creatinine Ratio 26.7 (10-20); Bilirubin,Total 0.4 mg/dl (0.2-1.0); Calcium 8.7 mg/dl (8.5-10.1); Creatinine Clr Calc Pharmacy 18.2 ml/min; Est GFR (African American) 29.2 ml/min; Est GFR (Non-African American) 25.2 ml/min; Globulin 3.1 gm/dl (2.5-4.0); Potassium 3.7 mmol/L (3.5-5.1); Total Protein 5.6 gm/dl (6.0-8.3)
[2021-10-21] MEDS: LEVALBUTEROL HCL 1.25 MG/3 ML NEB INH SCH ×4 (07:11→19:52)
[2021-10-21] MEDS: BUDESONIDE 0.5 MG/2 ML VIAL (PULMICORT) INH SCH ×2 (07:11→19:52)
[2021-10-21] MEDS: ACETAMINOPHEN W/CODEINE #3 1 TAB PO SCH ×2 (08:24→13:45)
[2021-10-21] MEDS: AZELASTINE HCL 0.1% NASAL 200 SPRAYS/27,400 MCG BTL SCH ×2 (08:24→21:28)
[2021-10-21] MEDS: carvediloL 12.5 MG TAB PO SCH ×2 (08:25→16:47)
[2021-10-21] MEDS: DOCUSATE SODIUM 100 MG CAP PO SCH ×2 (08:26→21:26)
[2021-10-21] MEDS: ESCITALOPRAM OXALATE 10 MG TAB PO SCH (08:27)
[2021-10-21] MEDS: FAMOTIDINE 20 MG TAB PO SCH ×2 (08:28→21:26)
[2021-10-21] MEDS: FEXOFENADINE HCL 180 MG TAB PO SCH (08:28)
[2021-10-21] MEDS: FLUTICASONE/VILANTEROL 200/25MCG 14 PUFFS/INHALER INH SCH (08:29)
[2021-10-21] MEDS: FUROSEMIDE 20 MG TAB PO SCH ×2 (08:29→16:47)
[2021-10-21] MEDS: guaiFENesin 600 MG TABCR PO SCH ×2 (08:30→21:27)
[2021-10-21] MEDS: predniSONE 5 MG TAB PO SCH (08:31)
[2021-10-21] MEDS: NYSTATIN SUSP 500,000 U/5 ML UDC BUCCAL SCH ×2 (08:31→21:28)
[2021-10-21] MEDS: PANTOprazole 40 MG TAB PO SCH ×2 (08:31→21:25)
[2021-10-21] MEDS: TRIAMCINOLONE ACET NASAL SPRAY 10.8ML BTL SCH ×2 (08:32→21:29)
[2021-10-21] MEDS: POTASSIUM CHLORIDE 10 MEQ TABCR PO SCH ×2 (08:32→21:27)
[2021-10-21] MEDS: DOXYCYCLINE HYCLATE 100 MG in DEXTROSE 5% 100 ML IV SCH ×2 (08:36→21:29)
--- NOTE | 2021-10-21 09:58 | Orthopedic Progress Note ---
Date of Service October 21, 2021 Assessment & Plan (1) Cellulitis of arm, right: Plan: Patient and her daughter were educated regarding today's findings. Results of her humeral x-rays were also discussed. After 36 hours of IV antibiotics, her cellulitis is improving. Given her presentation, I do not suspect a deep abscess at this point. Her daughter did ask about outpatient follow-up. We will be happy to see her as an outpatient for continued management of her s [place] rotator cuff arthropathy. Given her comorbidities, she is not a surgical candidate, but we can manage her symptoms medically. We did discuss the use of cortisone injections into the shoulder, after her cellulitis has resolved. At this point we will continue to follow while she is admitted. No change to treatment plan at this time. Admission and Anticipated Discharge Date Admission Date: October 20, 2021 Supervising Physician Co-Signing Physician Notes I, Dr. Hayden, saw and examined the patient []and discussed the management with my PA. I reviewed my PAs note and agree with the documented findings and the plan of care I developed. Subjective Patient is seen in her room this morning. Her daughter is present. Patient is mildly somnolent. She states her arm is sore. She denies any severe pain. She feels the arm is getting better. No new complaints. Her worst discomfort is at the shoulder. Physical Exam Physical Exam: General: Well-developed, well-nourished, elderly female, in no acute distress. Laying in bed. Conversive and oriented. Does fall asleep towards the end of my visit. She is easily awoken. Skin: Warm and dry with fair turgor. Generalized edema in the right arm. Mild erythema present from the mid bicep to the wrist. There is also mild warmth compared to her hand and her shoulder. Ecchymotic area over her upper arm lipoma. There are no areas of skin breakdown. appears improved from yesterday. Musculoskeletal: Patient has intact motor function of her fingers, wrist, and elbow. She does complain of stiffness with motion of the elbow. She has an increase in pain with passive motion of her right shoulder. And able to Abduct her to around 70 degrees and forward flex around 45 degrees. External rotation to just beyond neutral. Neurologic: Gross sensation is intact across the right arm by soft touch. Radial, median, and ulnar nerve functions are intact for both sensory and motor. Peripheral pulses are 2+. Results & Data ([facility]) Vital Signs (Past 12 Hours) Vital Signs Temp Pulse Resp BP Pulse Ox 10/21/21 07:11 71 18 96 10/21/21 00:26 36.7 C 78 18 151/95 H 96 Laboratory Results White count this morning is 13.6, an increase from 12.48 of yesterday. Hemoglobin has also dropped at 9.1 versus 9.6 yesterday. Hematocrit also lower at 28.3 versus 30.5 yesterday. INR is 2.8, which is improved from yesterday's 4.6. Glucose today is 98. Diagnostic Findings Humeral x-rays obtained yesterday show no evidence of the small air bubbles seen on CT scan. Osteoarthritis and osteopenia are noted. She has elevation of the humeral head suggesting chronic rotator cuff tear and rotator cuff arthropathy.
[2021-10-21] MEDS: ACETAMINOPHEN 1000 MG/100 ML IV IV PRN (10:27)
--- NOTE | 2021-10-21 15:21 | Hospitalist Progress Note ---
Date of Service October 21, 2021 Assessment & Plan (1) Generalized weakness: Plan: Multifactorial Complicated UTI-continues on Zosyn, outpatient urine culture MDR proteus, cont this for now with multiple allergies Traumatic RUE cellulitis no evidence of abscess, continuing on Zosyn, strep likely offending agent here per history, stop doxycycline. Pt also cannot tolerate oral doxycycline per daughter. Added to allergy profile. ortho saw her and no I&D needed at this time. May consider steroid injections once infection is totally cleared as outpatient. 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 hypertension, chronic, at goal. hyperlipidemia, on statin Rx bronchial asthma, episodic wheezing attributed to allergies as per daughter, Ongoing steroid Rx for last couple of months, managed by outpatient cardiology per daughter. breast cancer status post surgery, tamoxifen on hold following recent confinement for PE DVT until patient sees [facility] oncologist Thyroid cancer status postsurgery status post surgical hypothyroidism, chronic, stable. Abnormal LFTs Hyperglycemia likely prediabetes, hemoglobin A1c of 6.14 April 2021 CKD Stage III, creatinine at baseline chronic anemia, hemoglobin at baseline Ambulatory dysfunction/functional disability DVT proph: warfarin Full Code per daughter on this admission. Dispo-cont current monitoring in hospital. I am mostly concerned the patient is drowsy from T3 and this will be switched to scheduled plain tylenol. Encouraged to ambulate will be important as patient appears very deconditioned. PT/OT ordered. Spoke with both daughters during this visit and all questions answered, plan reviewed. Leisa Fernandes DO [facility] Hospitalist (2) Cellulitis of arm, right: (3) Supratherapeutic INR: (4) Acute UTI: Admission and Anticipated Discharge Date Admission Date: October 20, 2021 Subjective 89 yo F admitted for RUE pain including RUE cellulitis and sequelae of a UTI outpatient UCx positive for proteus with resistance daughter reports patient has Amoxicillin (antibiotics) given to her frequently for lung infections patient reportedly with severe asthma, pt sees bite block maker for treatment of this they have not had any luck with a fruit raiser in the past right arm pain is improved she is on T3 and very somnolent after having just received this so falling asleep frequently but able to wake up and orient no chest pain, SOB, UTI symptoms, abd pain, and she is eating she is not moving out of bed daughter at bedside and spoke with other daughter on the phone. Review of Systems Review of Systems: All systems were reviewed and negative except as indicated on subjective above. Physical Exam Physical Exam: CONSTITUTIONAL: obese, vitals as above, generally NAD EYES: normal conjunctivae, no scleral icterus ENT: external ear and nose normal, MMM NECK: trachea midline RESPIRATORY: clear to auscultation bilaterally, no crackles, rales or wheezes, normal respiratory effort CARDIOVASCULAR: regular rate and rhythm, S1 and 2 heard without murmurs, gallops or rubs, no JVD, no peripheral edema CHEST: inspection of chest was normal GASTROINTESTINAL: soft, nontender, ND, no guarding MUSCULOSKELETAL: generally very weak and she has difficulty at baseline abducting or flexing arms because of shoulder pain-restricted ROM with this efforts, SKIN: warm and dry, 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 No erythema present on the arm at this point. NEUROLOGIC: CN 2-12 grossly intact, fatigued but easy to arouse wtih voice and she is oriented, normal speech, no tremor .No gross focal deficits. PSYCHIATRIC: alert cooperative and oriented to person, place and time. Results & Data Results & Data ([facility]) Vital Signs (Past 12 Hours) Vital Signs Pulse Pulse Pulse Resp Pulse Ox 10/21/21 14:35 76 16 95 10/21/21 11:11 74 18 95 10/21/21 08:00 71 10/21/21 07:11 71 18 96 Laboratory Results Short CBC 10/21/21 Range/Units 05:57 WBC 13.61 H (4.8-10.8) K/uL Hgb 9.1 L (12.0-16.0) g/dL Hct 28.3 L (37-47) % Plt Count 370 (130-400) K/uL BMP 10/21/21 05:57 Sodium 133 L Potassium 3.7 Chloride 94 L Carbon Dioxide 30 BUN 47 H Creatinine 1.76 H D Glucose 98 Calcium 8.7 Liver Function 10/21/21 Range/Units 05:57 Total Bilirubin 0.4 (0.2-1.0) mg/dl AST 58 H (13-39) U/L ALT 71 H (7-52) U/L Alkaline Phosphatase 123 H (34-104) U/L Albumin 2.5 L (3.4-5.0) gm/dl Medications Administered Current Inpatient Medications Acetaminophen (Acetaminophen 1000 Mg/100 Ml Iv) 1,000 mg IV Q8H PRN PRN Reason: pain/fever Stop: 10/23/21 04:49 Last Admin: 10/21/21 10:27 Dose: 1,000 mg Documented by: Acetaminophen/Codeine Phosphate (Acetaminophen W/Codeine #3 1 Tab) 1 tab PO QID [facility] Stop: 11/19/21 12:59 Last Admin: 10/21/21 13:45 Dose: 1 tab Documented by: Azelastine HCl (Azelastine Hcl 0.1% Nasal 200 Sprays/27,400 Mcg Btl) 1 sprays NA BID [facility] Stop: 11/19/21 08:59 Last Admin: 10/21/21 08:24 Dose: 1 sprays Documented by: Benzonatate (Benzonatate 100 Mg Capsule) 100 mg PO TID PRN PRN Reason: Cough Stop: 11/19/21 02:17 Budesonide (Budesonide 0.5 Mg/2 Ml Vial (Pulmicort)) 0.5 mg INH BIDR [facility] Stop: 11/19/21 06:59 Last Admin: 10/21/21 07:11 Dose: 0.5 mg Documented by: Carvedilol (Carvedilol 12.5 Mg Tab) 12.5 mg PO BID@0600,1700 [facility] Stop: 11/20/21 16:59 Docusate Sodium (Docusate Sodium 100 Mg Cap) 200 mg PO BID [facility] Stop: 11/19/21 08:59 Last Admin: 10/21/21 08:26 Dose: 100 mg Documented by: Escitalopram Oxalate (Escitalopram Oxalate 10 Mg Tab) 5 mg PO QAM [facility] Stop: 11/19/21 08:59 Last Admin: 10/21/21 08:27 Dose: 5 mg Documented by: Famotidine (Famotidine 20 Mg Tab) 20 mg PO BID [facility] Stop: 11/19/21 08:59 Last Admin: 10/21/21 08:28 Dose: 20 mg Documented by: Fexofenadine HCl (Fexofenadine Hcl 180 Mg Tab) 180 mg PO QAM [facility] Stop: 11/19/21 08:59 Last Admin: 10/21/21 08:28 Dose: 180 mg Documented by: Fluticasone/Vilanterol (Fluticasone/Vilanterol 200/25mcg 14 Puffs/Inhaler) 1 puffs INH DAILY [facility] Stop: 11/19/21 08:59 Last Admin: 10/21/21 08:29 Dose: 1 puffs Documented by: Furosemide (Furosemide 20 Mg Tab) 60 mg PO BID17 [facility] Stop: 11/20/21 16:59 Guaifenesin (Guaifenesin 600 Mg Tabcr) 600 mg PO BID [facility] Stop: 11/19/21 08:59 Last Admin: 10/21/21 08:30 Dose: 600 mg Documented by: Piperacillin Sod/Tazobactam (Sod 3.375 gm/ Dextrose) 115 mls @ 28.75 mls/hr IV Q12H [facility]; Protocol Stop: 10/30/21 08:59 Last Infusion: 10/21/21 15:07 Dose: Infused Documented by: Promethazine HCl 6.25 mg/ (Sodium Chloride) 50.25 mls @ 201 mls/hr IV Q6H PRN PRN Reason: Nausea And Vomiting Stop: 11/19/21 02:17 Doxycycline Hyclate 100 mg/ (Dextrose) 110 mls @ 50 mls/hr IV BID [facility] Stop: 10/27/21 08:59 Last Infusion: 10/21/21 11:22 Dose: Infused Documented by: Isosorbide Mononitrate (Isosorbide [place] Extended Rel 60 Mg Tabcr) 60 mg PO HS [facility] Stop: 11/19/21 20:59 Last Admin: 10/20/21 21:04 Dose: 60 mg Documented by: Levalbuterol HCl (Levalbuterol Hcl 1.25 Mg/3 Ml Neb) 1.25 mg INH QIDR [facility]; Protocol Stop: 11/19/21 06:59 Last Admin: 10/21/21 14:35 Dose: 1.25 mg Documented by: Levothyroxine Sodium (Levothyroxine Sodium 200 Mcg Tablet) 200 mcg PO DAILYBB [facility] Stop: 11/19/21 06:29 Last Admin: 10/21/21 06:03 Dose: 200 mcg Documented by: Montelukast Sodium (Montelukast Sodium 10 Mg Tablet) 10 mg PO PM [facility] Stop: 11/19/21 20:59 Last Admin: 10/20/21 21:04 Dose: 10 mg Documented by: Nystatin (Nystatin Powder 15gm Btl) 1 appln EXT BID PRN PRN Reason: rash Stop: 11/19/21 21:15 Nystatin (Nystatin Susp 500,000 U/5 Ml Udc) 10 ml BUCCAL BID [facility] Stop: 10/30/21 21:29 Last Admin: 10/21/21 08:31 Dose: 10 ml Documented by: Pantoprazole Sodium (Pantoprazole 40 Mg Tab) 40 mg PO BID [facility] Stop: 11/19/21 08:59 Last Admin: 10/21/21 08:31 Dose: 40 mg Documented by: Potassium Chloride (Potassium Chloride 10 Meq Tabcr) 10 meq PO BID [facility] Stop: 11/19/21 10:39 Last Admin: 10/21/21 08:32 Dose: 10 meq Documented by: Prednisone (Prednisone 5 Mg Tab) 5 mg PO DAILY [facility] Stop: 11/19/21 08:59 Last Admin: 10/21/21 08:31 Dose: 5 mg Documented by: Tramadol HCl (Tramadol Hcl 50 Mg Tablet) 12.5 mg PO Q12H PRN PRN Reason: moderate to severe pain Stop: 11/19/21 10:44 Last Admin: 10/21/21 06:03 Dose: 12.5 mg Documented by: Triamcinolone Acetonide (Triamcinolone Acet Nasal [place] 10.8ml Btl) 1 sprays NA BID [facility] Stop: 11/19/21 08:59 Last Admin: 10/21/21 08:32 Dose: 1 sprays Documented by:
[2021-10-21] MEDS: WARFARIN SOD 1 MG TAB PO SCH (18:41)
[2021-10-21] MEDS: ACETAMINOPHEN 500 MG TAB PO SCH (21:24)
[2021-10-21] MEDS: MONTELUKAST SODIUM 10 MG TABLET PO SCH (21:25)
[2021-10-21] MEDS: ISOSORBIDE MONO EXTENDED REL 60 MG TABCR PO SCH (21:25)
[2021-10-22] MEDS: LEVOTHYROXINE SODIUM 200 MCG TABLET PO SCH (05:42)
[2021-10-22] MEDS: ACETAMINOPHEN 500 MG TAB PO SCH ×3 (05:42→20:27)
[2021-10-22] MEDS: carvediloL 12.5 MG TAB PO SCH ×2 (05:42→16:24)
[2021-10-22] MEDS: LEVALBUTEROL HCL 1.25 MG/3 ML NEB INH SCH ×4 (07:18→19:19)
[2021-10-22] MEDS: BUDESONIDE 0.5 MG/2 ML VIAL (PULMICORT) INH SCH ×2 (07:18→19:19)
[2021-10-22] MEDS: DOXYCYCLINE HYCLATE 100 MG in DEXTROSE 5% 100 ML IV SCH (07:32)
[2021-10-22] MEDS: FLUTICASONE/VILANTEROL 200/25MCG 14 PUFFS/INHALER INH SCH (07:39)
[2021-10-22] MEDS: TRIAMCINOLONE ACET NASAL SPRAY 10.8ML BTL SCH ×2 (07:40→20:39)
[2021-10-22] MEDS: AZELASTINE HCL 0.1% NASAL 200 SPRAYS/27,400 MCG BTL SCH ×2 (07:40→20:35)
[2021-10-22] MEDS: DOCUSATE SODIUM 100 MG CAP PO SCH ×3 (07:41→20:35)
[2021-10-22] MEDS: ESCITALOPRAM OXALATE 10 MG TAB PO SCH (07:44)
[2021-10-22] MEDS: FAMOTIDINE 20 MG TAB PO SCH ×2 (07:45→20:35)
[2021-10-22] MEDS: FUROSEMIDE 20 MG TAB PO SCH ×2 (07:45→16:24)
[2021-10-22] MEDS: FEXOFENADINE HCL 180 MG TAB PO SCH (07:45)
[2021-10-22] MEDS: guaiFENesin 600 MG TABCR PO SCH ×2 (07:47→20:36)
[2021-10-22] MEDS: PANTOprazole 40 MG TAB PO SCH ×2 (07:48→20:38)
[2021-10-22] MEDS: NYSTATIN SUSP 500,000 U/5 ML UDC BUCCAL SCH ×2 (07:48→20:37)
[2021-10-22] MEDS: POTASSIUM CHLORIDE 10 MEQ TABCR PO SCH ×2 (07:49→20:39)
[2021-10-22] MEDS: predniSONE 5 MG TAB PO SCH (07:49)
--- NOTE | 2021-10-22 09:00 | Orthopedic Progress Note ---
Date of Service October 22, 2021 Assessment & Plan (1) Cellulitis of arm, right: Plan: Continuing antibiotics ordered by medicine service Pain control with p.o. medication Ice with easy wrap PT/OT to work on range of motion DVT prophylaxis per medicine service discretion Patient can follow-up in our office as an outpatient when she is discharged in the hospital. At this point surgical intervention is not indicated. No change to treatment plan at this time. Admission and Anticipated Discharge Date Admission Date: October 20, 2021 Supervising Physician Co-Signing Physician Notes I, Dr. Hayden, saw and examined the patient and discussed the management with my PA. I reviewed my PAs note and agree with the documented findings and the plan of care I developed. Patient is not interested in any surgery. Please recall if any orthopedic issues. Subjective Patient is seen in her room this morning. Patient states that she did have an episode of upper arm pain this morning but at present she states it is much better. Patient denies any chest pain, shortness of breath, fever, chills, sweats or numbness or tingling in the right upper extremity. She states that it seems to be getting better with the antibiotic she is receiving. Review of Systems Review of Systems: All systems reviewed & are unremarkable except as noted in Subjective Physical Exam Physical Exam: Right upper extremity: Patient is able to tolerate passive terminal flexion extension at her elbow. She does have pain with passive f orward flexion and abduction at the shoulder. There is edema and Erythema extending from just distal to the shoulder to the mid forearm, much improved. She has some referred pain over the biceps with passive pronation and supination of her wrist. She has no pain with flexion or extension of her wrist. Her peripheral pulses are palpable. Capillary fill is 2 seconds. She is neurovascularly intact in right upper extremity. Results & Data ([facility]) Vital Signs (Past 12 Hours) Vital Signs Temp Pulse Pulse Resp BP Pulse Ox 10/22/21 07:23 82 10/22/21 07:18 74 16 95 10/22/21 02:57 36.5 C 83 18 153/90 H 95 10/21/21 22:51 79 10/21/21 22:50 36.5 C 78 18 138/77 97 Diagnostic Findings Laboratory Results WBC 13.61 K/uL (4.8-10.8) H 10/21/21 05:57 RBC 3.07 M/uL (4.2-5.4) L 10/21/21 05:57 Hgb 9.1 g/dL (12.0-16.0) L 10/21/21 05:57 Hct 28.3 % (37-47) L 10/21/21 05:57 MCV 92.2 fL (80-100) 10/21/21 05:57 MCH 29.6 pg (25-34) 10/21/21 05:57 MCHC 32.2 g/dL (32-36) 10/21/21 05:57 RDW Std Deviation 52.7 fL (36.4-46.3) H 10/21/21 05:57 RDW Coeff of Chrissy 15.8 % (11.5-14.5) H 10/21/21 05:57 Plt Count 370 K/uL (130-400) 10/21/21 05:57 MPV 9.9 fL (7.4-10.4) 10/21/21 05:57 Immature Gran % (Auto) 0.6 % 10/20/21 06:04 Neut % (Auto) 76.8 % 10/20/21 06:04 Lymph % (Auto) 10.7 % 10/20/21 06:04 [place] % (Auto) 10.3 % 10/20/21 06:04 Eos % (Auto) 1.4 % 10/20/21 06:04 Baso % (Auto) 0.2 % 10/20/21 06:04 Neut # (Auto) 9.60 K/uL (1.4-6.5) H 10/20/21 06:04 Lymph # (Auto) 1.33 K/uL (1.2-3.4) 10/20/21 06:04 [place] # (Auto) 1.29 K/uL (0.11-0.59) H 10/20/21 06:04 Eos # (Auto) 0.17 K/uL (0-0.5) 10/20/21 06:04 Baso # (Auto) 0.02 K/uL (0-0.2) 10/20/21 06:04 Immature Gran # (Auto) 0.07 K/uL (0.00-0.02) H 10/20/21 06:04 ESR 117 mm/hr (0-30) H 10/20/21 06:04 PT 28.2 Seconds (9.0-12.0) H 10/21/21 05:57 INR 2.8 (0.9-1.1) H 10/21/21 05:57 APTT 55.3 Seconds (21.0-31.0) H* 10/19/21 19:45 PTT Ratio 2.0 10/19/21 19:45 Sodium 133 mmol/L (136-145) L 10/21/21 05:57 Potassium 3.7 mmol/L (3.5-5.1) 10/21/21 05:57 Chloride 94 mmol/L (98-107) L 10/21/21 05:57 Carbon Dioxide 30 mmol/L (21-32) 10/21/21 05:57 Anion Gap 9 (3-11) 10/21/21 05:57 BUN 47 mg/dl (6-23) H 10/21/21 05:57 Creatinine 1.76 mg/dl (0.6-1.2) H D 10/21/21 05:57 Est Cr Clr Drug Dosing 18.2 ml/min 10/21/21 05:57 Est GFR ( Amer) 29.2 ml/min 10/21/21 05:57 Est GFR (Non-Af Amer) 25.2 ml/min 10/21/21 05:57 BUN/Creatinine Ratio 26.7 (10-20) H 10/21/21 05:57 Glucose 98 mg/dl (70-99(Fasting)) 10/21/21 05:57 Estimat Average Glucose 148 mg/dl 10/19/21 19:45 Hemoglobin A1c 6.8 % (4.5-5.6) H 10/19/21 19:45 Lactate 1.0 mmol/L (0.4-2.0) 10/19/21 19:45 Calcium 8.7 mg/dl (8.5-10.1) 10/21/21 05:57 Magnesium 2.0 mg/dl (1.7-2.4) 10/19/21 19:45 Total Bilirubin 0.4 mg/dl (0.2-1.0) 10/21/21 05:57 AST 58 U/L (13-39) H 10/21/21 05:57 ALT 71 U/L (7-52) H 10/21/21 05:57 Alkaline Phosphatase 123 U/L (34-104) H 10/21/21 05:57 Total Creatine Kinase 12 U/L (26-192) L 10/19/21 19:45 C-Reactive Protein 25.69 mg/dl (0-0.5) H 10/20/21 06:04 Total Protein 5.6 gm/dl (6.0-8.3) L 10/21/21 05:57 Albumin 2.5 gm/dl (3.4-5.0) L 10/21/21 05:57 Globulin 3.1 gm/dl (2.5-4.0) 10/21/21 05:57 Albumin/Globulin Ratio 0.8 (0.9-2) L 10/21/21 05:57 Procalcitonin 0.74 ng/ml (0-0.5) H 10/19/21 19:45 TSH 1.933 uIu/ml (0.300-4.500) 10/19/21 19:45 Urine Color Yellow 10/19/21 18:54 Urine Appearance Cloudy (Clear) A 10/19/21 18:54 Urine pH 5.0 (4.5-7.5) 10/19/21 18:54 Ur Specific [place] 1.015 (1.000-1.030) 10/19/21 18:54 Urine Protein Trace (Negative) H 10/19/21 18:54 Urine Glucose (UA) Negative (Negative) 10/19/21 18:54 Urine Ketones Negative (Negative) 10/19/21 18:54 Urine Blood Negative (Negative) 10/19/21 18:54 Urine Nitrite Negative (Negative) 10/19/21 18:54 Urine Bilirubin Negative (Negative) 10/19/21 18:54 Urine Urobilinogen Negative (Negative) 10/19/21 18:54 Ur Leukocyte Esterase 2+ (Negative) H 10/19/21 18:54 Urine WBC (Auto) >30 /hpf (0-5) H 10/19/21 18:54 Urine RBC (Auto) 0-4 /hpf (0-4) 10/19/21 18:54 U Hyaline Cast (Auto) 1-5 /lpf (0-5) 10/19/21 18:54 U Epithel Cells (Auto) >30 /lpf (0-5) H 10/19/21 18:54 Urine Bacteria (Auto) 1+ (Negative) H 10/19/21 18:54 Urine Yeast Budding (None Prsent) A 10/19/21 18:54 SARS-CoV-2, RNA, NAAT NEGATIVE (NEGATIVE) 10/19/21 19:01 Blood Type A Positive 10/20/21 06:04 Antibody Screen NEGATIVE 10/20/21 06:04 Impressions Chest X-Ray 10/19/21 18:49 XR chest 1V portable HISTORY: 89 years-old Female SEPSIS acute sepsis COMPARISON: Chest radiograph 10/01/2021 TECHNIQUE: Portable AP view of the chest FINDINGS: Cardiac silhouette is enlarged. No pneumothorax, large pleural effusion or overt pulmonary edema. Unchanged right hemidiaphragmatic elevation. Moderate sized hiatal hernia with improved left basilar opacities. Degenerative changes of the shoulders and spine. IMPRESSION: 1. Cardiomegaly without pulmonary edema. 2. Moderate hiatal hernia with left basilar opacities suggestive of atelectasis. 3. Unchanged right hemidiaphragmatic elevation. ACT 112: Negative or not required by law. The above report was generated using voice recognition software. It may contain grammatical, syntax or spelling errors. Electronically signed by: Isaac Pierre M.D. 10/19/2021 8:[address] 10/19/21 18:56 CT head/brain wo con CLINICAL HISTORY: 89 years-old Female with confusion, elevated INR. Acutely altered mental status with elevated INR TECHNIQUE: Multiple axial CT images of the head were obtained without contrast. A dose lowering technique was utilized adhering to the principles of ALARA. CT DOSE: 537.48 mGy.cm COMPARISON: Head CT 10/01/2021 FINDINGS: No acute intracranial hemorrhage, midline shift, intracranial mass, hydrocephalus, territorial ischemia or abnormal extra-axial collection. Age- related involutional changes. Mild white matter hypodensities are suggestive of probable chronic microvascular ischemic disease. Cerebral vascular calcifications. The calvarium is intact. Prior bilateral lens repair. The paranasal sinuses, mastoid air cells, and middle ear cavities are clear. IMPRESSION: No acute intracranial abnormality. ACT 112: Negative or not required by law. The above report was generated using voice recognition software. It may contain grammatical, syntax or spelling errors. Electronically signed by: Isaac Pierre M.D. 10/19/2021 8:25 PM Venous Doppler Study 10/19/21 18:56 US venous doppler UE RT CLINICAL HISTORY: redness swelling RUE PROCEDURE: Right upper extremity real-time compression venous ultrasound with Duplex and Color Doppler imaging. FINDINGS: Utilizing real-time ultrasonic imaging multiple real time high-resolution ultrasonic images of the deep venous system were performed from the forearm through the subclavian vein including evaluation of the jugular vein. Compression real time ultrasonic imaging was performed in addition to color Doppler imaging and duplex Doppler ultrasound with velocity spectral profile analysis. There is normal compressibility of the deep venous system from the forearm through the subclavian vein. Normal vascular flow is currently identified. No evidence of superficial thrombosis is identified. A complex fluid collection is seen in the right shoulder measuring 5.5 x 3.7 x 5.9 cm. A fluid collection is seen in the anterior arm and the area of swelling measuring 11.3 cm, extending proximal to the matter Impression: 1. No evidence of deep venous thrombus. 2. Fluid collection in the right shoulder, possibly representing a joint effusion. Anterior right upper arm fluid collection as which is nonspecific but may represent hematoma or abscess. ACT 112: Negative or not required by law. Electronically signed by: Ayo Simon M.D. 10/20/2021 7:35 AM Abdomen/Pelvis CT 10/20/21 00:53 CT abd pelvis wo con CLINICAL HISTORY: abd pain COMPARISON STUDY: 09/24/2021 CT DOSE: 1043.10 mGy.cm TECHNIQUE: Standard CT of the Abdomen and Pelvis was performed without IV contrast. The patient did not receive oral contrast. A dose lowering technique was utilized adhering to the principles of ALARA. FINDINGS: Lung base: The heart is enlarged with coronary artery calcification. There is interval decrease in left basilar atelectasis. Chronic pleural thickening is seen in the right lung base. Minimal dependent edema is seen at the lung bases. Abdominal cavity: There is no evidence for abdominal mass, adenopathy or ascites. Liver: The liver is homogeneous in attenuation on these limited noncontrast images.. Spleen: The spleen is homogeneous in attenuation on these limited noncontrast images. Pancreas: The pancreas is homogeneous in attenuation on these limited noncontrast images. Gall Bladder: There is again cholelithiasis with no CT evidence for acute cholecystitis. Adrenal glands: The adrenal glands are normal in size and attenuation on these limited noncontrast images. Kidneys: The kidneys are homogeneous in attenuation on these limited noncontrast images. There is no evidence for gross renal mass, calculus or hydronephrosis bilaterally. Bowel: There is a moderate size hiatal hernia. The bowel loops are normally placed within the abdomen and pelvis without evidence for dilatation or obstruction. There is no evidence for mass lesion. There is extensive sigmoid diverticulosis without evidence for diverticulitis. There are no inflammatory changes present. There is no evidence for free air. Bladder: There is no evidence for focal bladder wall thickening, calculus or diverticulum. : There is no evidence for pelvic mass or adenopathy. The patient is status post hysterectomy. Vasculature: There is no evidence for focal aneurysmal dilatation of the abdominal aorta. Extensive atherosclerotic calcification is present. Osseous structures: There is no acute osseous pathology. Degenerative changes are seen within the spine. IMPRESSION: 1. Compared to previous examination, there has been interval resolution of left basilar atelectasis. 2. There is again cholelithiasis with no CT evidence for acute cholecystitis. 3. There is again diffuse sigmoid diverticulosis without evidence for diverticulitis. 4. Moderate size hiatal hernia is again seen. 5. Additional nonacute findings are delineated above. ACT 112: Negative or not required by law. Electronically signed by: Magdi Mitchell M.D. 10/20/2021 8:[address] 10/20/21 00:53 CT shoulder RT wo con CLINICAL HISTORY: Right shoulder pain and swelling COMPARISON STUDY: No standard radiographs provided for comparison CT DOSE: 545.78 mGy.cm TECHNIQUE: Standard CT of the right is performed without IV contrast. Multiplanar reconstruction is performed. A dose lowering technique was utilized adhering to the principles of ALARA. FINDINGS: Bones: Bones are osteopenic. There is no evidence for an acute fracture or dislocation. There are no lytic or blastic lesions. Joints: There is moderate to marked narrowing of the glenohumeral joint with marginal osteophyte formation seen involving the humeral head. Moderate degenerative changes are also seen involving the acromial clavicular joint with spur formation present. There is superior migration of the humeral head in relation to the glenoid with almost complete loss of the humeral head subacromial distance. These findings are most characteristic of a chronic rotator cuff tear. Soft tissues: There is evidence for diffuse swelling of the upper arm with a few air bubbles seen within the biceps muscle of uncertain etiology. Clinical correlation is necessary. There are no focal fluid collections. IMPRESSION: 1. No acute osseous pathology. 2. Osteopenia and osteoarthritis. 3. Secondary findings of a chronic rotator cuff tear. 4. There are a few air bubbles present within the soft tissues of the upper arm of uncertain etiology. Clinical correlation is necessary. ACT 112: Negative or not required by law. Electronically signed by: Magdi Mitchell M.D. 10/20/2021 8:06 AM Humerus X-Ray 10/20/21 12:13 XR humerus RT 2V CLINICAL HISTORY: right arm pain. COMPARISON STUDY: No previous studies for comparison. TECHNIQUE: AP and lateral views FINDINGS: Bones: The bones are osteopenic. There is no evidence for an acute fracture or dislocation. There is no lytic or blastic lesion. Joints: Osteoarthritis is again seen at the shoulder. The elbow joint is maintained. Elevation of the humeral head in relation to the glenoid is again seen characteristic of a chronic rotator cuff tear. Soft tissues: There is no focal soft tissue abnormality. The small air bubbles seen on the CT cannot be identified radiographically. There is no radiopaque foreign body. IMPRESSION: 1. No acute osseous pathology. 2. Osteopenia, osteoarthritis and secondary findings of chronic rotator cuff tear. 3. The small air bubbles seen on CT are not visualized radiographically. If there is concern for muscle infection, MRI of the arm without and with contrast would be recommended. ACT 112: Negative or not required by law. Electronically signed by: Magdi Mitchell M.D. 10/20/2021 2:15 PM
[2021-10-22] MEDS: PIPERACILLIN/TAZOBACTAM 3.375 GM in DEXTROSE 5% 100 ML IV SCH ×2 (09:06→21:32)
[2021-10-22 09:21] LABS: Hematocrit (blood only) 27.5 % (37-47); Hemoglobin 8.9 g/dL (12.0-16.0); Mean Corpuscular Hemoglobin 29.6 pg (25-34); Mean Corpuscular Hgb Conc 32.4 g/dL (32-36); Mean Corpuscular Volume 91.4 fL (80-100); Mean Platelet Volume 9.3 fL (7.4-10.4); Platelet Count 382 K/uL (130-400); RDW Coefficient of Variation 15.7 % (11.5-14.5); RDW Standard Deviation 52.7 fL (36.4-46.3); Red Blood Count 3.01 M/uL (4.2-5.4)
[2021-10-22 09:30] LABS: INR 2.9 (0.9-1.1); Prothrombin Time 28.9 Seconds (9.0-12.0)
[2021-10-22 09:37] LABS: Albumin Globulin Ratio 0.8 (0.9-2); Albumin Level 2.4 gm/dl (3.4-5.0); BUN Creatinine Ratio 28.4 (10-20); Bilirubin,Total 0.3 mg/dl (0.2-1.0); Calcium 8.9 mg/dl (8.5-10.1); Creatinine Clr Calc Pharmacy 17.8 ml/min; Est GFR (African American) 27.9 ml/min; Potassium 3.6 mmol/L (3.5-5.1); Total Protein 5.4 gm/dl (6.0-8.3)
[2021-10-22] MEDS: traMADol HCL 50 MG TABLET PO PRN (13:11)
[2021-10-22] MEDS ORDERED: traMADol HCL 50 MG TABLET PO PRN ×2 (15:35→21:02)
[2021-10-22] MEDS: WARFARIN SOD 1 MG TAB PO SCH (16:22)
--- NOTE | 2021-10-22 16:55 | Hospitalist Progress Note ---
Date of Service October 22, 2021 Assessment & Plan (1) Generalized weakness: Plan: Multifactorial Complicated UTI-continues on Zosyn, outpatient urine culture MDR proteus, cont this for now with multiple allergies Traumatic RUE cellulitis no evidence of abscess, continuing on Zosyn, strep likely offending agent here per history, stop doxycycline. Pt also cannot tolerate oral doxycycline per daughter. Added to allergy profile. ortho saw her and no I&D needed at this time. May consider steroid injections once infection is totally cleared as outpatient. 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 Note that PE is acute and would bridge if becomes subtherapeutic. hypertension, chronic, at goal. hyperlipidemia, on statin Rx bronchial asthma, episodic wheezing attributed to allergies as per daughter, Ongoing steroid Rx for last couple of months, managed by outpatient cardiology per daughter. breast cancer status post surgery, tamoxifen on hold following recent confinement for PE DVT until patient sees [facility] oncologist Thyroid cancer status postsurgery status post surgical hypothyroidism, chronic, stable. Abnormal LFTs Hyperglycemia likely prediabetes, hemoglobin A1c of 6.14 April 2021 CKD Stage III, creatinine at baseline chronic anemia, hemoglobin at baseline Ambulatory dysfunction/functional disability DVT proph: warfarin Full Code per daughter on this admission. Dispo-cont current monitoring in hospital. I am mostly concerned the patient is drowsy from T3 and this will be switched to scheduled plain tylenol. Encouraged to ambulate will be important as patient appears very deconditioned. PT/OT ordered. Spoke with both daughters during this visit and all questions answered, plan reviewed. [facility] (2) Cellulitis of arm, right: (3) Supratherapeutic INR: (4) Acute UTI: Admission and Anticipated Discharge Date Admission Date: October 20, 2021 Subjective 89 yo F admitted for RUE pain including RUE cellulitis and sequelae of a UTI pain improved with higher dose of tramadol and scheduled tylenol she is eating well daughter at bedside pt reports getting OOB to chair today Review of Systems Review of Systems: All systems were reviewed and negative except as indicated on subjective above. Physical Exam Physical Exam: CONSTITUTIONAL: obese, vitals as above, generally NAD EYES: normal conjunctivae, no scleral icterus ENT: external ear and nose normal, MMM NECK: trachea midline RESPIRATORY: clear to auscultation bilaterally, no crackles, rales or wheezes, normal respiratory effort CARDIOVASCULAR: regular rate and rhythm, S1 and 2 heard without murmurs, gallops or rubs, no JVD, no peripheral edema CHEST: inspection of chest was normal GASTROINTESTINAL: soft, nontender, ND, no guarding MUSCULOSKELETAL: generally very weak and she has difficulty at baseline abducting or flexing arms because of shoulder pain-restricted ROM with this efforts, SKIN: warm and dry, 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 No erythema present on the arm at this point. there is persistent puffiness of the right arm compared with left NEUROLOGIC: CN 2-12 grossly intact, alert, oriented, normal speech, no tremor .No gross focal deficits. PSYCHIATRIC: alert cooperative and oriented to person, place and time. Results & Data Results & Data ([facility]) Vital Signs (Past 12 Hours) Vital Signs Temp Pulse Pulse Resp BP Pulse Ox 10/22/21 15:28 36.4 C L 83 18 158/75 H 91 10/22/21 15:20 88 18 97 10/22/21 14:44 81 10/22/21 10:52 74 18 98 10/22/21 07:23 82 10/22/21 07:18 74 16 95 Laboratory Results Short CBC 10/22/21 Range/Units 08:50 WBC 12.30 H (4.8-10.8) K/uL Hgb 8.9 L (12.0-16.0) g/dL Hct 27.5 L (37-47) % Plt Count 382 (130-400) K/uL BMP 10/22/21 08:50 Sodium 135 L Potassium 3.6 Chloride 96 L Carbon Dioxide 31 BUN 52 H Creatinine 1.83 H Glucose 103 H Calcium 8.9 Liver Function 10/22/21 Range/Units 08:50 Total Bilirubin 0.3 (0.2-1.0) mg/dl AST 56 H (13-39) U/L ALT 66 H (7-52) U/L Alkaline Phosphatase 111 H (34-104) U/L Albumin 2.4 L (3.4-5.0) gm/dl Medications Administered Current Inpatient Medications Acetaminophen (Acetaminophen 500 Mg Tab) 1,000 mg PO Q8H CHETAN Stop: 11/20/21 20:59 Last Admin: 10/22/21 12:17 Dose: 1,000 mg Documented by: Azelastine HCl (Azelastine Hcl 0.1% Nasal 200 Sprays/27,400 Mcg Btl) 1 sprays NA BID CHETAN Stop: 11/19/21 08:59 Last Admin: 10/22/21 07:40 Dose: 1 sprays Documented by: Benzonatate (Benzonatate 100 Mg Capsule) 100 mg PO TID PRN PRN Reason: Cough Stop: 11/19/21 02:17 Budesonide (Budesonide 0.5 Mg/2 Ml Vial (Pulmicort)) 0.5 mg INH BIDR CHETAN Stop: 11/19/21 06:59 Last Admin: 10/22/21 07:18 Dose: 0.5 mg Documented by: Carvedilol (Carvedilol 12.5 Mg Tab) 12.5 mg PO BID@0600,1700 [facility] Stop: 11/20/21 16:59 Last Admin: 10/22/21 16:24 Dose: 12.5 mg Documented by: Docusate Sodium (Docusate Sodium 100 Mg Cap) 200 mg PO BID CHETAN Stop: 11/19/21 08:59 Last Admin: 10/22/21 07:41 Dose: 200 mg Documented by: Escitalopram Oxalate (Escitalopram Oxalate 10 Mg Tab) 5 mg PO QAM [facility] Stop: 11/19/21 08:59 Last Admin: 10/22/21 07:44 Dose: 5 mg Documented by: Famotidine (Famotidine 20 Mg Tab) 20 mg PO BID CHETAN Stop: 11/19/21 08:59 Last Admin: 10/22/21 07:45 Dose: 20 mg Documented by: Fexofenadine HCl (Fexofenadine Hcl 180 Mg Tab) 180 mg PO QAM [facility] Stop: 11/19/21 08:59 Last Admin: 10/22/21 07:45 Dose: 180 mg Documented by: Fluticasone/Vilanterol (Fluticasone/Vilanterol 200/25mcg 14 Puffs/Inhaler) 1 puffs INH DAILY CHETAN Stop: 11/19/21 08:59 Last Admin: 10/22/21 07:39 Dose: 1 puffs Documented by: Furosemide (Furosemide 20 Mg Tab) 60 mg PO BID17 [facility] Stop: 11/20/21 16:59 Last Admin: 10/22/21 16:24 Dose: 60 mg Documented by: Guaifenesin (Guaifenesin 600 Mg Tabcr) 600 mg PO BID CHETAN Stop: 11/19/21 08:59 Last Admin: 10/22/21 07:47 Dose: 600 mg Documented by: Piperacillin Sod/Tazobactam (Sod 3.375 gm/ Dextrose) 115 mls @ 28.75 mls/hr IV Q12H [facility]; Protocol Stop: 10/30/21 08:59 Last Infusion: 10/22/21 13:12 Dose: Infused Documented by: Promethazine HCl 6.25 mg/ (Sodium Chloride) 50.25 mls @ 201 mls/hr IV Q6H PRN PRN Reason: Nausea And Vomiting Stop: 11/19/21 02:17 Isosorbide Mononitrate (Isosorbide [place] Extended Rel 60 Mg Tabcr) 60 mg PO HS [facility] Stop: 11/19/21 20:59 Last Admin: 10/21/21 21:25 Dose: 60 mg Documented by: Levalbuterol HCl (Levalbuterol Hcl 1.25 Mg/3 Ml Neb) 1.25 mg INH QIDR [facility]; Protocol Stop: 11/19/21 06:59 Last Admin: 10/22/21 15:20 Dose: 1.25 mg Documented by: Levothyroxine Sodium (Levothyroxine Sodium 200 Mcg Tablet) 200 mcg PO DAILYBB [facility] Stop: 11/19/21 06:29 Last Admin: 10/22/21 05:42 Dose: 200 mcg Documented by: Montelukast Sodium (Montelukast Sodium 10 Mg Tablet) 10 mg PO PM [facility] Stop: 11/19/21 20:59 Last Admin: 10/21/21 21:25 Dose: 10 mg Documented by: Nystatin (Nystatin Powder 15gm Btl) 1 appln EXT BID PRN PRN Reason: rash Stop: 11/19/21 21:15 Nystatin (Nystatin Susp 500,000 U/5 Ml Udc) 10 ml BUCCAL BID [facility] Stop: 10/30/21 21:29 Last Admin: 10/22/21 07:48 Dose: 10 ml Documented by: Pantoprazole Sodium (Pantoprazole 40 Mg Tab) 40 mg PO BID [facility] Stop: 11/19/21 08:59 Last Admin: 10/22/21 07:48 Dose: 40 mg Documented by: Potassium Chloride (Potassium Chloride 10 Meq Tabcr) 10 meq PO BID [facility] Stop: 11/19/21 10:39 Last Admin: 10/22/21 07:49 Dose: 10 meq Documented by: Prednisone (Prednisone 5 Mg Tab) 5 mg PO DAILY [facility] Stop: 11/19/21 08:59 Last Admin: 10/22/21 07:49 Dose: 5 mg Documented by: Tramadol HCl (Tramadol Hcl 50 Mg Tablet) 25 mg PO Q6H PRN PRN Reason: moderate to severe pain Stop: 11/19/21 10:35 Last Admin: 10/22/21 16:24 Dose: 25 mg Documented by: Triamcinolone Acetonide (Triamcinolone Acet Nasal [place] 10.8ml Btl) 1 sprays NA BID [facility] Stop: 11/19/21 08:59 Last Admin: 10/22/21 07:40 Dose: 1 sprays Documented by: Warfarin Sodium (Warfarin Sod 1 Mg Tab) 1 mg PO DAILY@1600 [facility] Stop: 11/20/21 15:59 Last Admin: 10/22/21 16:22 Dose: 1 mg Documented by:
[2021-10-22] MEDS ORDERED: ACETAMINOPHEN 1000 MG/100 ML IV IV STA (20:06)
[2021-10-22] MEDS: ISOSORBIDE MONO EXTENDED REL 60 MG TABCR PO SCH (20:37)
[2021-10-22] MEDS: MONTELUKAST SODIUM 10 MG TABLET PO SCH (20:37)
[2021-10-23] MEDS ORDERED: LOPERAMIDE HCL 2 MG CAP PO STA (03:23)
[2021-10-23] MEDS: ACETAMINOPHEN 1000 MG/100 ML IV IV SCH ×4 (04:59→21:41)
[2021-10-23] MEDS: LEVOTHYROXINE SODIUM 200 MCG TABLET PO SCH (05:00)
[2021-10-23] MEDS: carvediloL 12.5 MG TAB PO SCH ×2 (05:02→17:38)
[2021-10-23] MEDS: BUDESONIDE 0.5 MG/2 ML VIAL (PULMICORT) INH SCH ×2 (07:23→19:36)
[2021-10-23] MEDS: LEVALBUTEROL HCL 1.25 MG/3 ML NEB INH SCH ×4 (07:24→19:36)
[2021-10-23] MEDS: AZELASTINE HCL 0.1% NASAL 200 SPRAYS/27,400 MCG BTL SCH ×2 (07:48→21:45)
[2021-10-23] MEDS: DOCUSATE SODIUM 100 MG CAP PO SCH ×2 (07:48→21:50)
[2021-10-23] MEDS: FAMOTIDINE 20 MG TAB PO SCH ×2 (07:49→21:46)
[2021-10-23] MEDS: ESCITALOPRAM OXALATE 10 MG TAB PO SCH (07:49)
[2021-10-23] MEDS: FLUTICASONE/VILANTEROL 200/25MCG 14 PUFFS/INHALER INH SCH (07:50)
[2021-10-23] MEDS: guaiFENesin 600 MG TABCR PO SCH ×2 (07:50→21:49)
[2021-10-23] MEDS: NYSTATIN SUSP 500,000 U/5 ML UDC BUCCAL SCH ×2 (07:50→21:46)
[2021-10-23] MEDS: FEXOFENADINE HCL 180 MG TAB PO SCH (07:50)
[2021-10-23] MEDS: FUROSEMIDE 20 MG TAB PO SCH ×2 (07:50→17:39)
[2021-10-23] MEDS: PANTOprazole 40 MG TAB PO SCH ×2 (07:51→21:48)
[2021-10-23] MEDS: predniSONE 5 MG TAB PO SCH (07:51)
[2021-10-23] MEDS: POTASSIUM CHLORIDE 10 MEQ TABCR PO SCH ×2 (07:51→21:57)
[2021-10-23] MEDS: TRIAMCINOLONE ACET NASAL SPRAY 10.8ML BTL SCH ×2 (07:51→21:48)
[2021-10-23] MEDS: PIPERACILLIN/TAZOBACTAM 3.375 GM in DEXTROSE 5% 100 ML IV SCH ×2 (08:10→21:58)
[2021-10-23] MEDS ORDERED: hydrALAZINE 10 MG TAB PO PRN ×2 (08:38→08:40)
[2021-10-23 10:02] LABS: Albumin Globulin Ratio 0.8 (0.9-2); Albumin Level 2.6 gm/dl (3.4-5.0); BUN Creatinine Ratio 29.6 (10-20); Bilirubin,Total 0.4 mg/dl (0.2-1.0); Creatinine Clr Calc Pharmacy 17.3 ml/min; Est GFR (African American) 28.6 ml/min; Est GFR (Non-African American) 24.7 ml/min; Globulin 3.1 gm/dl (2.5-4.0); Potassium 3.5 mmol/L (3.5-5.1); Total Protein 5.7 gm/dl (6.0-8.3)
[2021-10-23] MEDS ORDERED: NON-FORMULARY MEDICATION (Iron,Carbonyl-Vitamin C [Vitron-C] 65 mg iron- 125 mg tablet,del PO SCH (10:30)
[2021-10-23 11:07] LABS: INR 3.5 (0.9-1.1); Prothrombin Time 34.9 Seconds (9.0-12.0)
[2021-10-23] MEDS: ASCORBIC ACID 500 MG TAB PO SCH ×2 (13:31→21:43)
[2021-10-23] MEDS: FERROUS SULFATE 325 MG TAB PO SCH ×2 (13:32→21:50)
--- NOTE | 2021-10-23 16:43 | Hospitalist Progress Note ---
Date of Service October 23, 2021 Assessment & Plan (1) Generalized weakness: Plan: Generalized weakness Likely multifactorial Complicated UTI: Multidrug-resistant Proteus on outpatient urine culture Traumatic RUE cellulitis Blood Cultures: Negative to date Stool for C. difficile negative Continue Zosyn Appreciate orthopedics input. No I&D needed. 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 Continue levothyroxine Abnormal LFTs CT ABD:The liver is homogeneous in attenuation on these limited noncontrast jamison ges. There is again cholelithiasis with no CT evidence for acute cholecystitis. Avoid hepatotoxic agents as able LFTs trending down DM II New Diagnosis H/O Prediabetes Likely worsened due to setoids HbA1C:6.8 No tight glycemic control needed given advanced age Monitor BGs off meds CKD Stage III Cr at baseline Monitor renal function Avoid nephrotoxic agents as able Chronic anemia Hb at baseline Continue Iron supplements Ambulatory dysfunction/functional disability Fall precautions PT/OT DVT Px: Coumadin held due to supratherapeutic INR Code Status Full Code Disposition PT/OT prior to discharge (2) Cellulitis of arm, right: (3) Supratherapeutic INR: (4) Acute UTI: Admission and Anticipated Discharge Date Admission Date: October 20, 2021 Subjective Patient is seen and examined at bedside States having pain of right upper extremity Feels tired and has mild cough Denies any other complaints Family at bedside Review of Systems Review of Systems: All systems reviewed & are unremarkable except as noted in Subjective Physical Exam Physical Exam: Physical Exam: Vitals signs as noted above General Appearance:Moderately built and nourished, no apparent distress Head: normocephalic, Atraumatic Eyes: normal inspection, EOMI Neck: supple, Trachea midline Respiratory/Chest: Normal breath sounds, CTA, No accessory muscle use Cardiovascular: S1, S2, +murmur Abdomen/GI:Soft, Non tender, Bowel sounds present Extremities/Musculoskeletal:normal inspection, Trace edema, RUE swelling Neurologic/Psych:AAOX2, grossly no focal neurological deficits Skin: normal color, warm Results & Data Results & Data ([facility]) Vital Signs (Past 12 Hours) Vital Signs Temp Pulse Pulse Pulse Resp BP Pulse Ox 10/23/21 15:42 37.2 C 82 18 163/78 H 98 10/23/21 15:24 80 18 96 10/23/21 15:01 80 10/23/21 11:34 81 10/23/21 11:20 36.7 C 76 82 18 160/73 H 94 10/23/21 07:50 36.6 C 111 H 18 183/77 H 97 10/23/21 07:25 80 18 97 Laboratory Results [facility] 10/23/21 09:21 Sodium 135 L Potassium 3.5 Chloride 95 L Carbon Dioxide 32 BUN 53 H Creatinine 1.79 H Glucose 102 H Calcium 9.0 Liver Function 10/23/21 Range/Units 09:21 Total Bilirubin 0.4 (0.2-1.0) mg/dl AST 52 H (13-39) U/L ALT 63 H (7-52) U/L Alkaline Phosphatase 134 H (34-104) U/L Albumin 2.6 L (3.4-5.0) gm/dl
[2021-10-23] MEDS: ISOSORBIDE MONO EXTENDED REL 60 MG TABCR PO SCH (21:48)
[2021-10-23] MEDS: MONTELUKAST SODIUM 10 MG TABLET PO SCH (21:48)
[2021-10-24] MEDS: carvediloL 12.5 MG TAB PO SCH ×2 (06:37→17:15)
[2021-10-24] MEDS: LEVOTHYROXINE SODIUM 200 MCG TABLET PO SCH (06:37)
[2021-10-24] MEDS: LEVALBUTEROL HCL 1.25 MG/3 ML NEB INH SCH ×4 (07:48→19:36)
[2021-10-24] MEDS: BUDESONIDE 0.5 MG/2 ML VIAL (PULMICORT) INH SCH ×2 (07:48→19:36)
[2021-10-24] MEDS: ACETAMINOPHEN 1000 MG/100 ML IV IV SCH ×2 (08:45→14:47)
[2021-10-24] MEDS: FUROSEMIDE 20 MG TAB PO SCH ×2 (08:46→17:14)
[2021-10-24] MEDS: guaiFENesin 600 MG TABCR PO SCH ×2 (08:46→20:35)
[2021-10-24] MEDS: ESCITALOPRAM OXALATE 10 MG TAB PO SCH (08:46)
[2021-10-24] MEDS: PANTOprazole 40 MG TAB PO SCH ×2 (08:46→20:36)
[2021-10-24] MEDS: ASCORBIC ACID 500 MG TAB PO SCH ×2 (08:47→20:33)
[2021-10-24] MEDS: FLUTICASONE/VILANTEROL 200/25MCG 14 PUFFS/INHALER INH SCH (08:47)
[2021-10-24] MEDS: FEXOFENADINE HCL 180 MG TAB PO SCH (08:47)
[2021-10-24] MEDS: FERROUS SULFATE 325 MG TAB PO SCH ×2 (08:48→20:36)
[2021-10-24] MEDS: TRIAMCINOLONE ACET NASAL SPRAY 10.8ML BTL SCH ×2 (08:48→20:33)
[2021-10-24] MEDS: SPIRONOLACTONE 12.5 MG TAB PO SCH (08:48)
[2021-10-24] MEDS: NYSTATIN SUSP 500,000 U/5 ML UDC BUCCAL SCH ×2 (08:48→20:28)
[2021-10-24] MEDS: predniSONE 5 MG TAB PO SCH (08:48)
[2021-10-24] MEDS: PIPERACILLIN/TAZOBACTAM 3.375 GM in DEXTROSE 5% 100 ML IV SCH ×2 (08:50→20:59)
[2021-10-24] MEDS: FAMOTIDINE 20 MG TAB PO SCH ×2 (08:51→20:35)
[2021-10-24] MEDS: AZELASTINE HCL 0.1% NASAL 200 SPRAYS/27,400 MCG BTL SCH ×2 (08:51→20:33)
[2021-10-24] MEDS: DOCUSATE SODIUM 100 MG CAP PO SCH (08:51)
[2021-10-24] MEDS: POTASSIUM CHLORIDE 10 MEQ TABCR PO SCH ×2 (08:52→20:32)
[2021-10-24 09:19] LABS: Hematocrit (blood only) 29.3 % (37-47); Hemoglobin 9.4 g/dL (12.0-16.0); Mean Corpuscular Hemoglobin 29.7 pg (25-34); Mean Corpuscular Hgb Conc 32.1 g/dL (32-36); Mean Corpuscular Volume 92.4 fL (80-100); Mean Platelet Volume 9.2 fL (7.4-10.4); Platelet Count 543 K/uL (130-400); RDW Coefficient of Variation 15.7 % (11.5-14.5); RDW Standard Deviation 52.5 fL (36.4-46.3); Red Blood Count 3.17 M/uL (4.2-5.4); White Blood Count 12.61 K/uL (4.8-10.8)
[2021-10-24 09:25] LABS: INR 2.2 (0.9-1.1)
[2021-10-24 09:33] LABS: Creatinine Clr Calc Pharmacy 19.6 ml/min; Est GFR (Non-African American) 28.5 ml/min
[2021-10-24] MEDS: LACTOBACILLUS ACIDOPHILUS 1 GM PACK PO SCH ×2 (12:07→17:13)
--- NOTE | 2021-10-24 16:45 | Hospitalist Progress Note ---
Date of Service October 24, 2021 Assessment & Plan (1) Generalized weakness: Plan: Generalized weakness Likely multifactorial Complicated UTI: Multidrug-resistant Proteus on outpatient urine culture Traumatic RUE cellulitis Blood Cultures: Negative to date Outpatient Urine Cx from 10/18/21: Proteus mirabilis sensitive to cefepime, ciprofloxacin, gentamicin, meropenem, Zosyn, Bactrim. Resistant to ampicillin, Unasyn, cefazolin, cefoxitin, ceftriaxone. Stool for C. difficile negative Continue Zosyn Appreciate orthopedics input. No I&D needed. 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 Continue levothyroxine Abnormal LFTs CT ABD:The liver is homogeneous in attenuation on these limited noncontrast images. There is again cholelithiasis with no CT evidence for acute cholecystitis. Avoid hepatotoxic agents as able LFTs trending down DM II New Diagnosis H/O Prediabetes Likely worsened due to setoids HbA1C:6.8 No tight glycemic control needed given advanced age Monitor BGs off meds CKD Stage III Cr at baseline Monitor renal function Avoid nephrotoxic agents as able Chronic anemia Hb at baseline Continue Iron supplements Ambulatory dysfunction/functional disability Fall precautions PT/OT DVT Px: Coumadin Code Status Full Code Disposition PT/OT prior to discharge (2) Cellulitis of arm, right: (3) Supratherapeutic INR: (4) Acute UTI: Admission and Anticipated Discharge Date Admission Date: October 20, 2021 Subjective Patient is seen and examined at bedside States having pain of right upper extremity Feels tired and has mild cough Denies any other complaints Family at bedside Review of Systems Review of Systems: All systems reviewed & are unremarkable except as noted in Subjective Physical Exam Physical Exam: Physical Exam: Vitals signs as noted above General Appearance:Moderately built and nourished, no apparent distress Head: normocephalic, Atraumatic Eyes: normal inspection, EOMI Neck: supple, Trachea midline Respiratory/Chest: Normal breath sounds, CTA, No accessory muscle use Cardiovascular: S1, S2, +murmur Abdomen/GI:Soft, Non tender, Bowel sounds present Extremities/Musculoskeletal:normal inspection, Trace edema, RUE swelling Neurologic/Psych:AAOX2, grossly no focal neurological deficits Skin: normal color, warm Results & Data Results & Data ([facility]) Vital Signs (Past 12 Hours) Vital Signs Temp Pulse Pulse Resp BP Pulse Ox 10/24/21 15:20 36.6 C 93 H 18 165/87 H 96 10/24/21 14:49 79 18 96 10/24/21 11:28 36.7 C 79 18 140/68 96 10/24/21 10:49 77 18 96 10/24/21 07:49 82 18 95 10/24/21 07:42 36.8 C 101 H 18 159/96 H 97 Laboratory Results Short CBC 10/24/21 Range/Units 08:57 WBC 12.61 H (4.8-10.8) K/uL Hgb 9.4 L (12.0-16.0) g/dL Hct 29.3 L (37-47) % Plt Count 543 H (130-400) K/uL BMP 10/24/21 08:57 Creatinine 1.59 H
[2021-10-24] MEDS: WARFARIN SOD 1 MG TAB PO SCH (17:15)
[2021-10-24] MEDS: ISOSORBIDE MONO EXTENDED REL 60 MG TABCR PO SCH (20:36)
[2021-10-24] MEDS: MONTELUKAST SODIUM 10 MG TABLET PO SCH (20:39)
[2021-10-24] MEDS ORDERED: ACETAMINOPHEN 1000 MG/100 ML IV IV STA (21:04)
[2021-10-25] MEDS: carvediloL 12.5 MG TAB PO SCH ×2 (05:41→16:54)
[2021-10-25] MEDS: LEVOTHYROXINE SODIUM 200 MCG TABLET PO SCH (05:41)
[2021-10-25] MEDS: LEVALBUTEROL HCL 1.25 MG/3 ML NEB INH SCH ×4 (06:59→19:43)
[2021-10-25] MEDS: BUDESONIDE 0.5 MG/2 ML VIAL (PULMICORT) INH SCH ×2 (06:59→19:44)
[2021-10-25] MEDS ORDERED: ACETAMINOPHEN 1000 MG/100 ML IV IV SCH ×2 (08:00→17:00)
[2021-10-25] MEDS: PIPERACILLIN/TAZOBACTAM 3.375 GM in DEXTROSE 5% 100 ML IV SCH (08:26)
[2021-10-25] MEDS: guaiFENesin 600 MG TABCR PO SCH ×2 (08:57→21:21)
[2021-10-25] MEDS: LACTOBACILLUS ACIDOPHILUS 1 GM PACK PO SCH ×3 (08:57→16:54)
[2021-10-25] MEDS: ASCORBIC ACID 500 MG TAB PO SCH ×2 (08:57→21:22)
[2021-10-25] MEDS: FERROUS SULFATE 325 MG TAB PO SCH ×2 (08:58→21:21)
[2021-10-25] MEDS: PANTOprazole 40 MG TAB PO SCH ×2 (08:58→21:19)
[2021-10-25] MEDS: ESCITALOPRAM OXALATE 10 MG TAB PO SCH (08:58)
[2021-10-25] MEDS: predniSONE 5 MG TAB PO SCH (08:58)
[2021-10-25] MEDS: FEXOFENADINE HCL 180 MG TAB PO SCH (08:58)
[2021-10-25] MEDS: FAMOTIDINE 20 MG TAB PO SCH (08:58)
[2021-10-25] MEDS: FUROSEMIDE 20 MG TAB PO SCH ×2 (08:58→16:54)
[2021-10-25] MEDS: SPIRONOLACTONE 12.5 MG TAB PO SCH (08:58)
[2021-10-25] MEDS: AZELASTINE HCL 0.1% NASAL 200 SPRAYS/27,400 MCG BTL SCH ×2 (08:59→21:17)
[2021-10-25] MEDS: FLUTICASONE/VILANTEROL 200/25MCG 14 PUFFS/INHALER INH SCH (08:59)
[2021-10-25] MEDS: TRIAMCINOLONE ACET NASAL SPRAY 10.8ML BTL SCH ×2 (09:00→21:28)
[2021-10-25] MEDS: POTASSIUM CHLORIDE 10 MEQ TABCR PO SCH ×2 (09:01→21:18)
[2021-10-25 09:16] LABS: Hematocrit (blood only) 31.6 % (37-47); Hemoglobin 9.8 g/dL (12.0-16.0); Mean Corpuscular Hemoglobin 28.3 pg (25-34); Mean Corpuscular Volume 91.3 fL (80-100); Mean Platelet Volume 9.3 fL (7.4-10.4); Platelet Count 588 K/uL (130-400); RDW Standard Deviation 52.8 fL (36.4-46.3); Red Blood Count 3.46 M/uL (4.2-5.4); White Blood Count 15.19 K/uL (4.8-10.8)
[2021-10-25 09:33] LABS: INR 1.5 (0.9-1.1)
[2021-10-25] MEDS: NYSTATIN SUSP 500,000 U/5 ML UDC BUCCAL SCH ×2 (09:44→21:19)
[2021-10-25] MEDS: LOPERAMIDE HCL 2 MG CAP PO PRN ×2 (09:47→18:37)
[2021-10-25 09:55] LABS: Albumin Globulin Ratio 0.8 (0.9-2); Albumin Level 2.8 gm/dl (3.4-5.0); BUN Creatinine Ratio 32.1 (10-20); Bilirubin,Total 0.4 mg/dl (0.2-1.0); Calcium 9.3 mg/dl (8.5-10.1); Creatinine Clr Calc Pharmacy 18.6 ml/min; Est GFR (African American) 30.9 ml/min; Est GFR (Non-African American) 26.7 ml/min; Globulin 3.5 gm/dl (2.5-4.0); Potassium 3.2 mmol/L (3.5-5.1); Total Protein 6.3 gm/dl (6.0-8.3)
[2021-10-25] MEDS ORDERED: POTASSIUM CHLORIDE CRTAB 20 MEQ TABCR PO ONE (10:30)
[2021-10-25] MEDS ORDERED: Heparin IV Adult Wt-Based Low-Dose *NO* Bolus Protocol IV SCH (10:45)
[2021-10-25] MEDS ORDERED: HEPARIN SODIUM/DEXTROSE 25,000 UNITS/500 ML BAG IV SCH (11:00)
[2021-10-25] MEDS: SUCRALFATE 1 GM/10 ML UDC PO SCH ×2 (13:04→21:18)
[2021-10-25] MEDS ORDERED: HEPARIN SOD 5,000 UNIT/0.5 ML VIAL SQ SCH (14:00)
[2021-10-25] MEDS ORDERED: WARFARIN SOD 2 MG TAB PO SCH (16:00)
[2021-10-25] MEDS ORDERED: ACETAMINOPHEN 1,000 MG/100 ML VIAL IV SCH (16:00)
--- NOTE | 2021-10-25 17:53 | Hospitalist Progress Note ---
Date of Service October 25, 2021 Assessment & Plan (1) Generalized weakness: Plan: Generalized weakness Likely multifactorial Complicated UTI: Multidrug-resistant Proteus on outpatient urine culture Traumatic RUE cellulitis Blood Cultures: Negative to date Outpatient Urine Cx from 10/18/21: Proteus mirabilis sensitive to cefepime, ciprofloxacin, gentamicin, meropenem, Zosyn, Bactrim. Resistant to ampicillin, Unasyn, cefazolin, cefoxitin, ceftriaxone. Stool for C. difficile negative Completed 5 day course of Zosyn for UTI Continue Zosyn>>> transitioned to cefdinir for cellulitis Appreciate orthopedics input. No I&D needed. Chronic hypoxemic respiratory failure on home O2 Chronic diastolic heart failure Continue home diuretics Monitor volume status Diarrhea Stool for C. 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 Continue levothyroxine Abnormal LFTs CT ABD:The liver is homogeneous in attenuation on these limited noncontrast images. There is again cholelithiasis with no CT evidence for acute cholecystitis. Avoid hepatotoxic agents as able LFTs trending down DM II New Diagnosis H/O Prediabetes Likely worsened due to setoids HbA1C:6.8 No tight glycemic control needed given advanced age Monitor BGs off meds CKD Stage III Cr at baseline Monitor renal function Avoid nephrotoxic agents as able Chronic anemia Hb at baseline Continue Iron supplements Ambulatory dysfunction/functional disability Fall precautions PT/OT DVT Px: Coumadin IV Heparin Code Status Full Code Disposition PT/OT prior to discharge (2) Cellulitis of arm, right: (3) Supratherapeutic INR: (4) Acute UTI: Admission and Anticipated Discharge Date Admission Date: October 20, 2021 Subjective Patient is seen and examined at bedside States feeling tired Right upper extremity pain is controlled Persistent diarrhea as per family No other complaints Review of Systems Review of Systems: All systems reviewed & are unremarkable except as noted in Subjective Physical Exam Physical Exam: Physical Exam: Vitals signs as noted above General Appearance:Moderately built and nourished, no apparent distress Head: normocephalic, Atraumatic Eyes: normal inspection, EOMI Neck: supple, Trachea midline Respiratory/Chest: Normal breath sounds, CTA, No accessory muscle use Cardiovascular: S1, S2, +murmur Abdomen/GI:Soft, Non tender, Bowel sounds present Extremities/Musculoskeletal:normal inspection, Trace edema, RUE swelling Neurologic/Psych:AAOX2, grossly no focal neurological deficits Skin: normal color, warm Results & Data Results & Data ([facility]) Vital Signs (Past 12 Hours) Vital Signs Temp Pulse Pulse Resp BP Pulse Ox 10/25/21 15:33 36.8 C 61 18 148/77 H 90 10/25/21 14:40 84 16 97 10/25/21 12:00 36.9 C 86 18 151/72 H 92 10/25/21 10:50 78 16 98 10/25/21 08:00 36.9 C 86 16 130/76 96 10/25/21 07:00 102 H 20 96 Laboratory Results Short CBC 10/25/21 Range/Units 08:44 WBC 15.19 H (4.8-10.8) K/uL Hgb 9.8 L (12.0-16.0) g/dL Hct 31.6 L (37-47) % Plt Count 588 H (130-400) K/uL BMP 10/25/21 08:44 Sodium 137 Potassium 3.2 L Chloride 96 L Carbon Dioxide 29 BUN 54 H Creatinine 1.68 H Glucose 122 H Calcium 9.3 Liver Function 10/25/21 Range/Units 08:44 Total Bilirubin 0.4 (0.2-1.0) mg/dl AST 31 (13-39) U/L ALT 46 (7-52) U/L Alkaline Phosphatase 116 H (34-104) U/L Albumin 2.8 L (3.4-5.0) gm/dl
[2021-10-25] MEDS: ACETAMINOPHEN 500 MG TAB PO PRN (17:55)
[2021-10-25 19:07] LABS: Partial Thromboplastin Ratio 1.3; Partial Thromboplastin Time 34.5 Seconds (21.0-31.0)
[2021-10-25] MEDS ORDERED: HEPARIN SOD (PORCINE) 1000 UNIT/ML IV ONE (19:16)
[2021-10-25] MEDS ORDERED: HEPARIN IV BOLUS 2,000 UNITS in SYRINGE 0 ML IV STA (20:13)
[2021-10-25] MEDS: MONTELUKAST SODIUM 10 MG TABLET PO SCH (21:20)
[2021-10-25] MEDS: ISOSORBIDE MONO EXTENDED REL 60 MG TABCR PO SCH (21:21)
[2021-10-25] MEDS: CIPROFLOXACIN 250 MG TAB PO SCH (22:34)
[2021-10-25] MEDS: MELATONIN 3 MG TAB PO PRN (23:01)
[2021-10-26 01:05] LABS: Partial Thromboplastin Ratio 2.4; Partial Thromboplastin Time 66.6 Seconds (21.0-31.0)
[2021-10-26] MEDS: carvediloL 12.5 MG TAB PO SCH ×2 (06:06→16:17)
[2021-10-26] MEDS: LEVOTHYROXINE SODIUM 200 MCG TABLET PO SCH (06:06)
[2021-10-26] MEDS: ACETAMINOPHEN 500 MG TAB PO PRN ×2 (06:48→16:13)
[2021-10-26] MEDS: BUDESONIDE 0.5 MG/2 ML VIAL (PULMICORT) INH SCH ×2 (06:58→19:09)
[2021-10-26] MEDS: LEVALBUTEROL HCL 1.25 MG/3 ML NEB INH SCH ×4 (06:58→19:09)
[2021-10-26 07:57] LABS: Hemoglobin 9.1 g/dL (12.0-16.0); Mean Corpuscular Hemoglobin 28.6 pg (25-34); Mean Corpuscular Hgb Conc 31.4 g/dL (32-36); Mean Corpuscular Volume 91.2 fL (80-100); Mean Platelet Volume 9.1 fL (7.4-10.4); Platelet Count 608 K/uL (130-400); RDW Coefficient of Variation 16.2 % (11.5-14.5); RDW Standard Deviation 52.8 fL (36.4-46.3); Red Blood Count 3.18 M/uL (4.2-5.4); White Blood Count 16.15 K/uL (4.8-10.8)
[2021-10-26] MEDS: ACETAMINOPHEN 1,000 MG/100 ML VIAL IV PRN ×2 (08:11→22:31)
[2021-10-26 08:24] LABS: INR 1.4 (0.9-1.1); Prothrombin Time 14.6 Seconds (9.0-12.0)
[2021-10-26 08:31] LABS: BUN Creatinine Ratio 34.8 (10-20); Calcium 8.9 mg/dl (8.5-10.1); Creatinine Clr Calc Pharmacy 19.5 ml/min; Est GFR (African American) 32.5 ml/min; Est GFR (Non-African American) 28.1 ml/min; Potassium 3.5 mmol/L (3.5-5.1)
[2021-10-26] MEDS: FLUTICASONE/VILANTEROL 200/25MCG 14 PUFFS/INHALER INH SCH (08:43)
[2021-10-26] MEDS: guaiFENesin 600 MG TABCR PO SCH (08:44)
[2021-10-26] MEDS: CIPROFLOXACIN 250 MG TAB PO SCH ×2 (08:44→12:37)
[2021-10-26] MEDS: ASCORBIC ACID 500 MG TAB PO SCH (08:44)
[2021-10-26] MEDS: LACTOBACILLUS ACIDOPHILUS 1 GM PACK PO SCH ×3 (08:44→16:15)
[2021-10-26] MEDS: FERROUS SULFATE 325 MG TAB PO SCH ×2 (08:44→21:13)
[2021-10-26] MEDS: AZELASTINE HCL 0.1% NASAL 200 SPRAYS/27,400 MCG BTL SCH ×2 (08:44→21:13)
[2021-10-26] MEDS: NYSTATIN SUSP 500,000 U/5 ML UDC BUCCAL SCH ×2 (08:45→21:12)
[2021-10-26] MEDS: FEXOFENADINE HCL 180 MG TAB PO SCH (08:45)
[2021-10-26] MEDS: SPIRONOLACTONE 12.5 MG TAB PO SCH (08:45)
[2021-10-26] MEDS: CEFDINIR 300 MG CAP PO SCH (08:45)
[2021-10-26] MEDS: PANTOprazole 40 MG TAB PO SCH (08:45)
[2021-10-26] MEDS: SUCRALFATE 1 GM/10 ML UDC PO SCH ×3 (08:45→21:10)
[2021-10-26] MEDS: FAMOTIDINE 20 MG TAB PO SCH (08:45)
[2021-10-26] MEDS: ESCITALOPRAM OXALATE 10 MG TAB PO SCH (08:46)
[2021-10-26] MEDS: predniSONE 5 MG TAB PO SCH (08:46)
[2021-10-26] MEDS: FUROSEMIDE 20 MG TAB PO SCH (08:46)
[2021-10-26] MEDS: LOPERAMIDE HCL 2 MG CAP PO PRN ×3 (08:46→22:34)
[2021-10-26] MEDS: NYSTATIN POWDER 15GM BTL EXT PRN (08:47)
[2021-10-26] MEDS: DICLOFENAC SOD 1% GEL 100 GM TUBE EXT PRN ×2 (08:48→18:05)
[2021-10-26] MEDS: TRIAMCINOLONE ACET NASAL SPRAY 10.8ML BTL SCH ×2 (08:48→21:14)
[2021-10-26] MEDS: POTASSIUM CHLORIDE 10 MEQ TABCR PO SCH ×2 (08:58→21:12)
[2021-10-26] MEDS ORDERED: hydrALAZINE 10 MG TAB PO PRN (09:45)
[2021-10-26] MEDS ORDERED: SODIUM CHLORIDE 0.9% 250 ML IV PRN (13:39)
[2021-10-26] MEDS ORDERED: hydrALAZINE HCL 20 MG/ML VIAL IV PRN (13:43)
--- NOTE | 2021-10-26 14:25 | Ultrasound Report ---
RIGHT UPPER ARM ULTRASOUND CLINICAL HISTORY: Right upper extremity palpable lump. COMPARISON STUDY: Right humerus radiographs October 20, 2021. CT of the right shoulder October 20, 2021. TECHNIQUE: Sonography of the right upper arm at site of palpable lump was performed. FINDINGS: Note is made of a complex elongated fluid collection of the right upper arm which measures 15.2 x 3 x 3 cm. This appears to overlie the fascia although a portion may be intramuscular in locati on. This contains no color flow. No additional fluid collections are identified. IMPRESSION: Complex 15.2 x 3 x 3 cm right upper arm fluid collection. This favors a resolving hemato ma, possibly intramuscular. ACT 112: Negative or not required by law. Electronically signed by: Dayo Peña M.D. 10/26/2021 2:23 PM
[2021-10-26] MEDS: PANTOprazole 40 MG in DEXTROSE 5% 100 ML IV SCH ×2 (14:48→19:41)
--- NOTE | 2021-10-26 15:56 | Hospitalist Progress Note ---
Date of Service October 26, 2021 Assessment & Plan (1) Generalized weakness: Plan: Generalized weakness Likely multifactorial Complicated UTI: Multidrug-resistant Proteus on outpatient urine culture Traumatic RUE cellulitis Blood Cultures: Negative to date Outpatient Urine Cx from 10/18/21: Proteus mirabilis sensitive to cefepime, ciprofloxacin, gentamicin, meropenem, Zosyn, Bactrim. Resistant to ampicillin, Unasyn, cefazolin, cefoxitin, ceftriaxone. Stool for C. difficile negative Completed 5 day course of Zosyn>>Cipro for 2 more days for UTI Continue Zosyn>>> transitioned to cefdinir for cellulitis Appreciate orthopedics input. No I&D needed. Melena/Rectal Bleeding Hold IV Heparin, Coumadin INR subtherapeutic : 1.4 Avoid anticoagulants Started on IV PPI drip Type and cross Transfuse as needed Monitor H&H GI consulted NPO for now Right Upper Extremity Hematoma: RUE USD:Complex 15.2 x 3 x 3 cm right upper arm fluid collection. This favors a resolving hematoma, possibly intramuscular. Monitor H&H Consider reevaluation by Ortho if needed Chronic hypoxemic respiratory failure on home O2 Chronic diastolic heart failure Continue home diuretics as able Monitor volume status Diarrhea Stool for C. 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 Continue levothyroxine Abnormal LFTs CT ABD:The liver is homogeneous in attenuation on these limited noncontrast images. There is again cholelithiasis with no CT evidence for acute cholecystiti s. Avoid hepatotoxic agents as able LFTs trending down DM II New Diagnosis H/O Prediabetes Likely worsened due to setoids HbA1C:6.8 No tight glycemic control needed given advanced age Monitor BGs off meds CKD Stage III Cr at baseline Monitor renal function Avoid nephrotoxic agents as able Chronic anemia Hb at baseline Continue Iron supplements Ambulatory dysfunction/functional disability Fall precautions PT/OT DVT Px: Coumadin--Held Re: GI Bleed IV Heparin--Held Re: GI Bleed SCDs Code Status Full Code Disposition PT/OT prior to discharge (2) Cellulitis of arm, right: (3) Supratherapeutic INR: (4) Acute UTI: Admission and Anticipated Discharge Date Admission Date: October 20, 2021 Subjective Patient is seen and examined at bedside Sitting in chair during my encounter this morning Had rectal bleed today afternoon Also complained of neck stiffness Still has diarrhea Right upper extremity pain is improved No other complaints Review of Systems Review of Systems: All systems reviewed & are unremarkable except as noted in Subjective Physical Exam Physical Exam: Physical Exam: Vitals signs as noted above General Appearance:Moderately built and nourished, no apparent distress Head: normocephalic, Atraumatic Eyes: normal inspection, EOMI Neck: supple, Trachea midline Respiratory/Chest: Normal breath sounds, Scant Wheezing, No accessory muscle use Cardiovascular: S1, S2, +murmur Abdomen/GI:Soft, Non tender, Bowel sounds present Extremities/Musculoskeletal:normal inspection, Trace edema, RUE swelling Neurologic/Psych:AAOX2, grossly no focal neurological deficits Skin: normal color, warm Results & Data Results & Data ([facility]) Vital Signs (Past 12 Hours) Vital Signs Temp Pulse Pulse Pulse Resp BP Pulse Ox 10/26/21 14:51 78 18 97 10/26/21 11:42 36.7 C 81 18 152/73 H 98 10/26/21 10:56 73 18 92 10/26/21 08:00 36.8 C 68 18 147/86 H 95 10/26/21 07:21 79 10/26/21 06:58 78 18 98 10/26/21 06:05 94 H 170/78 H Laboratory Results Short CBC 10/26/21 Range/Units 06:42 WBC 16.15 H (4.8-10.8) K/uL Hgb 9.1 L (12.0-16.0) g/dL Hct 29.0 L (37-47) % Plt Count 608 H (130-400) K/uL BMP 10/26/21 06:42 Sodium 138 Potassium 3.5 Chloride 98 Carbon Dioxide 32 BUN 56 H Creatinine 1.61 H Glucose 107 H Calcium 8.9
[2021-10-26] MEDS ORDERED: WARFARIN SOD 3 MG TAB PO SCH (16:00)
[2021-10-26 16:08] LABS: Hematocrit (blood only) 27.3 % (37-47); Hemoglobin 8.7 g/dL (12.0-16.0)
[2021-10-26 20:10] LABS: Hematocrit (blood only) 27.1 % (37-47); Hemoglobin 8.7 g/dL (12.0-16.0)
[2021-10-26] MEDS: MONTELUKAST SODIUM 10 MG TABLET PO SCH (21:12)
[2021-10-26] MEDS: ISOSORBIDE MONO EXTENDED REL 60 MG TABCR PO SCH (21:13)
[2021-10-27] MEDS: PANTOprazole 40 MG in DEXTROSE 5% 100 ML IV SCH ×5 (00:16→19:33)
[2021-10-27 02:09] LABS: Hematocrit (blood only) 25.1 % (37-47); Hemoglobin 8.2 g/dL (12.0-16.0)
[2021-10-27] MEDS: LEVOTHYROXINE SODIUM 200 MCG TABLET PO SCH (06:06)
[2021-10-27] MEDS: carvediloL 12.5 MG TAB PO SCH ×2 (06:06→16:52)
[2021-10-27 07:12] LABS: INR 1.3 (0.9-1.1)
[2021-10-27] MEDS: LEVALBUTEROL HCL 1.25 MG/3 ML NEB INH SCH ×4 (07:16→19:42)
[2021-10-27] MEDS: BUDESONIDE 0.5 MG/2 ML VIAL (PULMICORT) INH SCH ×2 (07:17→19:42)
[2021-10-27 07:28] LABS: BUN Creatinine Ratio 32.1 (10-20); Calcium 9.1 mg/dl (8.5-10.1); Est GFR (African American) 41.7 ml/min; Potassium 3.6 mmol/L (3.5-5.1)
[2021-10-27] MEDS: SUCRALFATE 1 GM/10 ML UDC PO SCH ×3 (08:18→20:27)
[2021-10-27] MEDS: FERROUS SULFATE 325 MG TAB PO SCH ×2 (08:18→20:29)
[2021-10-27] MEDS: POTASSIUM CHLORIDE 10 MEQ TABCR PO SCH ×2 (08:18→20:28)
[2021-10-27] MEDS: CEFDINIR 300 MG CAP PO SCH (08:18)
[2021-10-27] MEDS: CIPROFLOXACIN 250 MG TAB PO SCH (08:19)
[2021-10-27] MEDS: LACTOBACILLUS ACIDOPHILUS 1 GM PACK PO SCH ×3 (08:23→16:52)
[2021-10-27] MEDS: predniSONE 2.5 MG TAB PO SCH (08:24)
[2021-10-27] MEDS: NYSTATIN SUSP 500,000 U/5 ML UDC BUCCAL SCH ×2 (08:24→20:27)
[2021-10-27] MEDS: FEXOFENADINE HCL 180 MG TAB PO SCH (08:24)
[2021-10-27] MEDS: ESCITALOPRAM OXALATE 10 MG TAB PO SCH (08:25)
[2021-10-27] MEDS: AZELASTINE HCL 0.1% NASAL 200 SPRAYS/27,400 MCG BTL SCH ×2 (08:25→20:27)
[2021-10-27] MEDS: TRIAMCINOLONE ACET NASAL SPRAY 10.8ML BTL SCH ×2 (08:26→20:30)
[2021-10-27] MEDS: FLUTICASONE/VILANTEROL 200/25MCG 14 PUFFS/INHALER INH SCH (08:26)
[2021-10-27 08:38] LABS: Hematocrit (blood only) 27.9 % (37-47); Hemoglobin 8.7 g/dL (12.0-16.0); Mean Corpuscular Hemoglobin 28.6 pg (25-34); Mean Corpuscular Hgb Conc 31.2 g/dL (32-36); Mean Corpuscular Volume 91.8 fL (80-100); Mean Platelet Volume 9.1 fL (7.4-10.4); Platelet Count 599 K/uL (130-400); RDW Coefficient of Variation 16.3 % (11.5-14.5); Red Blood Count 3.04 M/uL (4.2-5.4); White Blood Count 14.73 K/uL (4.8-10.8)
[2021-10-27 09:08] LABS: ALC (manual) 1.66 K/uL (1.2-3.4); ANC (manual) 12.05 K/uL (1.4-6.5); Basophils # (manual) 0.13 K/uL (0-0.2); Basophils % (manual) 0.9 %; Eosinophils # (manual) 0.25 K/uL (0-0.5); Eosinophils % (manual) 1.7 %; Lymphocytes # (manual) 1.66 K/uL (1.2-3.4); Lymphocytes % (manual) 11.3 %; Monocytes # (manual) 0.25 K/uL (0.11-0.59); Monocytes % (manual) 1.7 %; Myelocytes # (manual) 0.38 K/uL (0-0); Myelocytes % (manual) 2.6 %; Neutrophils # (manual) 12.05 K/uL (1.4-6.5); Neutrophils % (manual) 81.8 %
[2021-10-27] MEDS: DICLOFENAC SOD 1% GEL 100 GM TUBE EXT PRN ×2 (09:16→20:24)
[2021-10-27] MEDS: LOPERAMIDE HCL 2 MG CAP PO PRN (09:22)
--- NOTE | 2021-10-27 10:54 | Gastrointestinal Consultation ---
Date of Consultation October 27, 2021 Assessment & Plan (1) GI bleed: Rectal bleeding, slight decrease in Hb, mild periumbilical pain. Will plan for EGD and flex sig tomorrow after given an enema. Regular diet today. Anesthesia consult.Consider cardiology consult.Consider blood transfusion if hemoglobin drops further. Further recommendations to follow endoscopy tomorrow. Supervising Physician Co-Signing Physician Notes Late entry: Patient was seen and examined on 10/27 with SOPHIE Romeo whose note reflects our findings and plan. EGD and flex scheduled for History of Present Illness Reason for Consultation: Rectal bleeding Requesting Physician: Dr. Pruett Attending Physician: Jesse Pruett MD History of Present Illness Ms. Vanessa Gillis is 89-year-old female patient of Dr. Calvert with a complicated medical hx including CAD, CKD-3, chronic respiratory failure on home O2, A. fib, PE, DVT on Coumadin, hypertension, history of breast cancer. She was admitted for complicated UTI. GI is consulted for rectal bleeding she passed about 5 or 6 bloody red bowel movements yesterday and 1 thus far this morning. When asked about abdominal pain she identifies that she does have some mid abdomen pain. She does not however look real uncomfortable and did not complain of pain prior to being asked. Her daughter at the bedside is at the bedside. On arrival, on 10/19, Hb ws 10 ->8.2 midnight and 8.7 this morning. BUN has not significantly increased. CT on arrival showed moderate size hiatal hernia and diverticulosis no other bowel abnormalities. She is awake alert oriented and hemodynamically stable. Warfarin has been held. INR this morning is 1.3. Most recent colonoscopy was in 2010 with one 5 mm polyp, internal hemorrhoids and diverticulosis, no other abnormalities. Most recent EGD for dysphagia in 2013 with a widely patent Schatzi ring, moderate sized hiatal hernia. 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, senior contract specialist recommended not to take sulfamethoxazole Allergy Mild RASH Verified 10/19/21 23:19 trimethoprim Allergy Mild RASH Verified 10/19/21 23:19 amlodipine Allergy legs swell Verified 10/19/21 23:19 severe azithromycin Allergy Unknown Verified 10/19/21 23:19 ipratropium Allergy Anaphylaxis Verified 10/19/21 23:19 Sulfa (Sulfonamide Allergy Difficulty Verified 10/19/21 23:19 Antibiotics) Breathing doxycycline AdvReac Unknown GI upset Verified 10/22/21 22:11 cefuroxime [From Ceftin] AdvReac Diarrhea Verified 10/22/21 09:13 narcotic in general AdvReac Severe Hallucinati Uncoded 10/19/21 23:20 ng Home Medications Medication Instructions Recorded Confirmed Type allopurinol 100 mg tablet 200 mg PO QAM 02/19/19 10/19/21 History atorvastatin 40 mg tablet 40 mg PO PM 02/19/19 10/19/21 History azelastine 137 mcg (0.1 %) nasal 1 spray INTRANASAL BID 02/19/19 10/19/21 History spray aerosol budesonide 0.5 mg/2 mL suspension 0.5 mg INHALATION BID 02/19/19 10/19/21 History for nebulization carvedilol 25 mg tablet (Coreg) 12.5 mg PO BID 02/19/19 10/19/21 History cholecalciferol (vitamin D3) 25 2,000 unit PO 3XWK 02/19/19 10/19/21 History mcg (1,000 unit) capsule (Vitamin D3) escitalopram oxalate 10 mg tablet 5 mg PO QAM 02/19/19 10/19/21 History (Lexapro) fexofenadine 180 mg tablet 180 mg PO QAM 02/19/19 10/19/21 History levalbuterol HCl 1.25 mg/3 mL 1.25 mg INHALATION QID 02/19/19 10/19/21 History solution for nebulization (Xopenex) montelukast 10 mg tablet 10 mg PO PM 02/19/19 10/19/21 History nitroglycerin 0.4 mg sublingual 0.4 mg BUCCAL .UD PRN 02/19/19 10/19/21 History tablet (Nitrostat) pantoprazole 40 mg tablet,delayed 40 mg PO BID 02/19/19 10/19/21 History release (Protonix) sodium chloride 0.65 % nasal spray 2 spray INTRANASAL QID PRN 02/19/19 10/19/21 History aerosol (Saline Nasal) spironolactone 25 mg tablet 12.5 mg PO QAM 02/19/19 10/19/21 History tamoxifen 20 mg tablet 20 mg PO . ON HOLD 02/19/19 10/19/21 History triamcinolone acetonide 55 mcg 1 spray INTRANASAL BID 02/19/19 10/19/21 History nasal spray aerosol (Nasacort) isosorbide mononitrate 60 mg 60 mg PO HS 11/15/20 10/19/21 History tablet,extended release 24 hr levalbuterol tartrate 45 1 puff INHALATION Q4H PRN 11/15/20 10/19/21 History mcg/actuation aerosol inhaler acetaminophen 500 mg tablet 500 mg PO TID 05/19/21 10/19/21 History magnesium oxide 400 mg (241.3 mg 800 mg PO QAM 05/19/21 10/19/21 History magnesium) tablet sucralfate 100 mg/mL oral 10 ml PO TID 05/19/21 10/19/21 History suspension famotidine 20 mg tablet 20 mg PO BID 05/28/21 10/19/21 History benzonatate 100 mg capsule 100 mg PO TID PRN 09/24/21 10/19/21 History calcitriol 0.25 mcg capsule 0.25 mcg PO 3XWK 09/24/21 10/19/21 History clotrimazole-betamethasone 1 1 applic TOPICAL BID PRN 09/24/21 10/19/21 History %-0.05 % topical cream guaifenesin 600 mg tablet, 600 mg PO BID 09/24/21 10/19/21 History extended release 12 hr (Mucinex) hydralazine 10 mg tablet 10 mg PO TID PRN 09/24/21 10/19/21 History iron,carbonyl 65 mg-vitamin C 125 1 tab PO BID 09/24/21 10/19/21 History mg tablet,delayed release (Vitron-C) lidocaine HCl 2 % mucosal solution 1 applic TOPICAL DAILY PRN 09/24/21 10/19/21 History budesonide-formoterol HFA 160 2 puff INHALATION BID 10/19/21 10/19/21 History mcg-4.5 mcg/actuation aerosol inhaler (Symbicort) cefdinir 300 mg capsule 300 mg PO QAM 10/19/21 10/19/21 History docusate sodium 100 mg capsule 200 mg PO BID 10/19/21 10/19/21 History furosemide 40 mg tablet 60 mg PO UD 10/19/21 10/19/21 History levothyroxine 200 mcg tablet 200 mcg PO DAILYBB 10/19/21 10/19/21 History nystatin 100,000 unit/gram topical 1 applic TOPICAL BID PRN 10/19/21 10/19/21 History powder nystatin 100,000 unit/mL oral 10 ml BUCCAL BID 10/19/21 10/19/21 History suspension potassium chloride 10 mEq 10 meq PO UD 10/19/21 10/19/21 History tablet,extended release prednisone 5 mg tablet 5 mg PO DAILY 10/19/21 10/19/21 History warfarin 2 mg tablet 1 mg PO . CURRENTLY ON HOLD 10/19/21 10/19/21 History Patient History Medical History Anemia recent hospitalization at [facility] 2 weeks ago Anticoagulated on Coumadin Anxiety Asthma, moderate persistent not well controlled, frequent nebulizer use Chronic diastolic CHF (congestive heart failure) follows with Dr. Benjamin CKD (chronic kidney disease), stage III follows with Dr. 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, no surgeries Hypothyroidism (acquired) "s/p thyroidectomy and radioiodine therapy for cancer treatment" Hysterectomy (02/22/13) IBS (irritable bowel syndrome) Labile hypertension Osteoporosis (02/22/13) PAF (paroxysmal atrial fibrillation) hx of 10 yrs ago > no longer on ASA or Coumadin as of 2 weeks ago 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 Father , Passed age 50 of [place] No problems noted. Brother Lung fibrosis Brother , Passed age 63 of allergic reaction to antibiotics No problems noted. Sister , Passed age 83 of "electrolyte disturbances" DCIS (ductal carcinoma in situ) Sister , Passed age 84 from post surgical complications No problems noted. Sister No problems noted. Daughter No problems noted. Daughter No problems noted. Son No problems noted. 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[email or web address] Other Information That Helps Us Care for You: No Feels Safe at Home: Yes Safety Concerns: Feels Safe At This Time caffeine: No during the past year weight has: remained stable Assistive Devices: Oxygen - Continuous and Walker Review of Systems Review of Systems: ROS: Gen: + headache, hungry, denies weakness, fevers, or weight loss Eyes: No eye redness, or pain, no recent vision changes Resp: Denies any SOB, no cough Cardio: + occasional irregular heartbeat (consistent with A-fib), no chest pain GI: As per HPI, otherwise negative : Denies pain on urination Skin: No jaundice, itching or new rashes A total of 12 systems were reviewed, all others (-) Physical Exam Constitutional: well developed, + ill appearing, + thin and cooperative Eyes: PERRL, conjunctivae normal, anicteric sclerae ENMT: external ear and nose normal, oropharynx normal Neck: trachea midline, no thyromegaly Respiratory: normal respiratory effort scattered wheezes, few crackles at the bases. Cardiovascular: RRR, no murmur, no edema Gastrointestinal (Abdomen): Inspection/Auscultation: abdomen normal to inspection and normal bowel sounds; abdomen not distended and no abdominal edema Percussion/Palpation: + abdomen tender (Mild diffuse adbdominal msk tende rness. No signs of acute abdomen.) and abdomen soft; no guarding and abdomen not rigid Skin: no rashes, warm and dry normal turgor small areas of ecchymosis Neurologic: PERRL, EOMI, accommodation nl, no face palsy, no dysarthria awake; not confused Psychiatric: A+Ox3, euthymic affect Orientation: alert, oriented x 3 and cooperative Results & Data ([facility]) Vital Signs (Past 12 Hours) Vital Signs Temp Pulse Pulse Pulse Resp BP Pulse Ox 10/27/21 07:56 37.0 C 77 16 147/63 H 100 10/27/21 07:20 75 10/27/21 07:18 71 16 93 10/27/21 03:12 36.6 C 72 18 153/73 H 97 10/27/21 01:38 81 10/26/21 23:35 36.6 C 79 20 122/71 95 Laboratory Results WBC 16, Hb 8.7, HCT 25, PLT S608, PT 14, INR 1.3, NA 137, K3.6, CL 98, CO2 32, BUN 42, CR 1.3, glucose 90. Diagnostic Findings CTAP 10/20/21: 1. Compared to previous examination, there has been interval resolution of left basilar atelectasis. 2. There is again cholelithiasis with no CT evidence for acute cholecystitis. 3. There is again diffuse sigmoid diverticulosis without evidence for diverticulitis. 4. Moderate size hiatal hernia is again seen. 5. Additional nonacute findings are delineated above.
[2021-10-27] MEDS: ACETAMINOPHEN 500 MG TAB PO PRN ×2 (14:16→21:38)
--- NOTE | 2021-10-27 17:55 | Cardiology Consultation ---
Date of Consultation October 27, 2021 Assessment & Plan (1) Preop cardiovascular exam: (2) Chronic diastolic (congestive) heart failure: (3) Bilateral pulmonary embolism: (4) Asthma, moderate persistent: Patient is an 89-year-old female very complex history as outlined with difficulties with the current lower GI bleeding with mandated anticoagulation due to bilateral DVT and pulmonary emboli in September 2021. Patient will undergo upper GI endoscopy and sigmoidoscopy to exclude high risk bleeding lesions. No cardiac contraindications. No arrhythmias, angina, active congestive heart failure with patient euvolemic by exam and history. Renal function doing well Once information known we will make decision regarding long-term anticoagulation likely DOAC with apixaban 2.5 mg twice per day given difficulties with marked lability in anticoagulation with warfarin. If further bleeding or contraindications to anticoagulation found will consider referral for IVC filter History of Present Illness Reason for Consultation: Preoperative/preprocedural evaluation Requesting Physician: Dr. Pruett Attending Physician: Jesse Pruett MD History of Present Illness Patient is an 89-year-old female with complex cardiac history which includes 1. Long-standing labile hypertension with hypertensive heart disease and brittle diastolic congestive heart failure, class III 2. Paroxysmal atrial fibrillation. 3. Anticoagulation risks for felt to be greater than the benefit for atrial fibrillation, hospitalization in May 2021 with diarrhea, black stools, probable upper GI bleeding. . 4. Mild nonobstructive coronary atherosclerosis by cardiac catheterization 201 2. 5. CKD stage IV 6. Asthmatic lung disease Patient referred for evaluation prior to planned upper GI endoscopy and sigmoidoscopy in a.m. Recent clinical course reviewed and notable for complex history including DVT, pulmonary emboli, contrast-induced nephropathy in September 2021. Currently admitted after progressive decline weakness right upper extremity cellulitis/hematoma and urinary tract infection. Per patient and daughter anticoagulation has been very labile and difficult to control and now with recurrence of blood in stools. Patient is scheduled for upper GI endoscopy and sigmoidoscopy in a.m. Currently denies any chest pain shortness of breath dizziness or lightheadedness. Lower extremity edema is excellent and renal function at best recently No arrhythmias on telemetry 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, audiology assistant recommended not to take sulfamethoxazole Allergy Mild RASH Verified 10/19/21 23:19 trimethoprim Allergy Mild RASH Verified 10/19/21 23:19 amlodipine Allergy legs swell Verified 10/19/21 23:19 severe azithromycin Allergy Unknown Verified 10/19/21 23:19 ipratropium Allergy Anaphylaxis Verified 10/19/21 23:19 Sulfa (Sulfonamide Allergy Difficulty Verified 10/19/21 23:19 Antibiotics) Breathing doxycycline AdvReac Unknown GI upset Verified 10/22/21 22:11 cefuroxime [From Ceftin] AdvReac Diarrhea Verified 10/22/21 09:13 narcotic in general AdvReac Severe Hallucinati Uncoded 10/19/21 23:20 ng Home Medications Medication Instructions Recorded Confirmed Type allopurinol 100 mg tablet 200 mg PO QAM 02/19/19 10/19/21 History atorvastatin 40 mg tablet 40 mg PO PM 02/19/19 10/19/21 History azelastine 137 mcg (0.1 %) nasal 1 spray INTRANASAL BID 02/19/19 10/19/21 History spray aerosol budesonide 0.5 mg/2 mL suspension 0.5 mg INHALATION BID 02/19/19 10/19/21 History for nebulization carvedilol 25 mg tablet (Coreg) 12.5 mg PO BID 02/19/19 10/19/21 History cholecalciferol (vitamin D3) 25 2,000 unit PO 3XWK 02/19/19 10/19/21 History mcg (1,000 unit) capsule (Vitamin D3) escitalopram oxalate 10 mg tablet 5 mg PO QAM 02/19/19 10/19/21 History (Lexapro) fexofenadine 180 mg tablet 180 mg PO QAM 02/19/19 10/19/21 History levalbuterol HCl 1.25 mg/3 mL 1.25 mg INHALATION QID 02/19/19 10/19/21 History solution for nebulization (Xopenex) montelukast 10 mg tablet 10 mg PO PM 02/19/19 10/19/21 History nitroglycerin 0.4 mg sublingual 0.4 mg BUCCAL .UD PRN 02/19/19 10/19/21 History tablet (Nitrostat) pantoprazole 40 mg tablet,delayed 40 mg PO BID 02/19/19 10/19/21 History release (Protonix) sodium chloride 0.65 % nasal spray 2 spray INTRANASAL QID PRN 02/19/19 10/19/21 History aerosol (Saline Nasal) spironolactone 25 mg tablet 12.5 mg PO QAM 02/19/19 10/19/21 History tamoxifen 20 mg tablet 20 mg PO . ON HOLD 02/19/19 10/19/21 History triamcinolone acetonide 55 mcg 1 spray INTRANASAL BID 02/19/19 10/19/21 History nasal spray aerosol (Nasacort) isosorbide mononitrate 60 mg 60 mg PO HS 11/15/20 10/19/21 History tablet,extended release 24 hr levalbuterol tartrate 45 1 puff INHALATION Q4H PRN 11/15/20 10/19/21 History mcg/actuation aerosol inhaler acetaminophen 500 mg tablet 500 mg PO TID 05/19/21 10/19/21 History magnesium oxide 400 mg (241.3 mg 800 mg PO QAM 05/19/21 10/19/21 History magnesium) tablet sucralfate 100 mg/mL oral 10 ml PO TID 05/19/21 10/19/21 History suspension famotidine 20 mg tablet 20 mg PO BID 05/28/21 10/19/21 History benzonatate 100 mg capsule 100 mg PO TID PRN 09/24/21 10/19/21 History calcitriol 0.25 mcg capsule 0.25 mcg PO 3XWK 09/24/21 10/19/21 History clotrimazole-betamethasone 1 1 applic TOPICAL BID PRN 09/24/21 10/19/21 History %-0.05 % topical cream guaifenesin 600 mg tablet, 600 mg PO BID 09/24/21 10/19/21 History extended release 12 hr (Mucinex) hydralazine 10 mg tablet 10 mg PO TID PRN 09/24/21 10/19/21 History iron,carbonyl 65 mg-vitamin C 125 1 tab PO BID 09/24/21 10/19/21 History mg tablet,delayed release (Vitron-C) lidocaine HCl 2 % mucosal solution 1 applic TOPICAL DAILY PRN 09/24/21 10/19/21 History budesonide-formoterol HFA 160 2 puff INHALATION BID 10/19/21 10/19/21 History mcg-4.5 mcg/actuation aerosol inhaler (Symbicort) cefdinir 300 mg capsule 300 mg PO QAM 10/19/21 10/19/21 History docusate sodium 100 mg capsule 200 mg PO BID 10/19/21 10/19/21 History furosemide 40 mg tablet 60 mg PO UD 10/19/21 10/19/21 History levothyroxine 200 mcg tablet 200 mcg PO DAILYBB 10/19/21 10/19/21 History nystatin 100,000 unit/gram topical 1 applic TOPICAL BID PRN 10/19/21 10/19/21 History powder nystatin 100,000 unit/mL oral 10 ml BUCCAL BID 10/19/21 10/19/21 History suspension potassium chloride 10 mEq 10 meq PO UD 10/19/21 10/19/21 History tablet,extended release prednisone 5 mg tablet 5 mg PO DAILY 10/19/21 10/19/21 History warfarin 2 mg tablet 1 mg PO . CURRENTLY ON HOLD 10/19/21 10/19/21 History Patient History Medical History Anemia recent hospitalization at [facility] 2 weeks ago Anticoagulated on Coumadin Anxiety Asthma, moderate persistent not well controlled, frequent nebulizer use Chronic diastolic CHF (congestive heart failure) follows with Dr. Benjamin CKD (chronic kidney disease), stage III follows with Dr. 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, no surgeries Hypothyroidism (acquired) "s/p thyroidectomy and radioiodine therapy for cancer treatment" Hysterectomy (02/22/13) IBS (irritable bowel syndrome) Labile hypertension Osteoporosis (02/22/13) PAF (paroxysmal atrial fibrillation) hx of 10 yrs ago > no longer on ASA or Coumadin as of 2 weeks ago Thyroid ca 2016 - 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 Father , Passed age 50 of [place] No problems noted. Brother Lung fibrosis Brother , Passed age 63 of allergic reaction to antibiotics No problems noted. Sister , Passed age 83 of "electrolyte disturbances" DCIS (ductal carcinoma in situ) Sister , Passed age 84 from post surgical complications No problems noted. Sister No problems noted. Daughter No problems noted. Daughter No problems noted. Son No problems noted. 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) Other Information That Helps Us Care for You: No Feels Safe at Home: Yes Safety Concerns: Feels Safe At This Time caffeine: No during the past year weight has: remained stable Assistive Devices: Oxygen - Continuous and Walker Review of Systems Review of Systems: All systems reviewed & are unremarkable except as noted in HPI & below Physical Exam Constitutional: no acute distress Eyes: PERRL, conjunctivae normal, anicteric sclerae ENMT: external ear and nose normal, oropharynx normal Neck: trachea midline, no thyromegaly Respiratory: Auscultation: + wheezes (Bibasilar right greater than left) Cardiovascular: Rate/Rhythm: regular rate and regular rhythm Heart Sounds: + murmur (Grade 1/6 systolic) Vessels: + JVD Extremities: + edema Musculoskeletal: Right upper arm tender and swollen consistent with history hematoma/cellulitis Results & Data ([facility]) Vital Signs (Past 12 Hours) Vital Signs Temp Pulse Pulse Pulse Resp BP Pulse Ox 10/27/21 16:19 36.8 C 84 16 143/59 H 98 10/27/21 15:24 86 10/27/21 15:08 68 18 97 10/27/21 12:23 36.7 C 92 H 16 145/73 H 98 10/27/21 11:57 85 18 95 10/27/21 07:56 37.0 C 77 16 147/63 H 100 10/27/21 07:20 75 10/27/21 07:18 71 16 93 Laboratory Results Laboratory Results - last 24 hr 10/26/21 10/27/21 10/27/21 19:54 01:50 06:12 WBC RBC Hgb 8.7 L 8.2 L Hct 27.1 L 25.1 L MCV MCH MCHC RDW Std Deviation RDW Coeff of Chrissy Plt Count MPV Neutrophils % (Manual) Lymphocytes % (Manual) Monocytes % (Manual) Eosinophils % (Manual) Basophils % (Manual) Myelocytes % (Man) Neutrophils # (Manual) Total Absolute Neuts Lymphocytes # (Manual) Total Abs Lymphocytes Monocytes # (Manual) Eosinophils # (Manual) Basophils # (Manual) Myelocytes # (Manual) PT 14.0 H INR 1.3 H Sodium Potassium Chloride Carbon Dioxide Anion Gap BUN Creatinine Est Cr Clr Drug Dosing Est GFR ( Amer) Est GFR (Non-Af Amer) BUN/Creatinine Ratio Glucose Calcium 10/27/21 10/27/21 06:12 06:20 WBC 14.73 H RBC 3.04 L Hgb 8.7 L Hct 27.9 L MCV 91.8 MCH 28.6 MCHC 31.2 L RDW Std Deviation 54.0 H RDW Coeff of Chrissy 16.3 H Plt Count 599 H MPV 9.1 Neutrophils % (Manual) 81.8 Lymphocytes % (Manual) 11.3 Monocytes % (Manual) 1.7 Eosinophils % (Manual) 1.7 Basophils % (Manual) 0.9 Myelocytes % (Man) 2.6 Neutrophils # (Manual) 12.05 H Total Absolute Neuts 12.05 H Lymphocytes # (Manual) 1.66 Total Abs Lymphocytes 1.66 Monocytes # (Manual) 0.25 Eosinophils # (Manual) 0.25 Basophils # (Manual) 0.13 Myelocytes # (Manual) 0.38 H PT INR Sodium 137 Potassium 3.6 Chloride 98 Carbon Dioxide 32 Anion Gap 7 BUN 42 H Creatinine 1.31 H D Est Cr Clr Drug Dosing 24.0 Est GFR ( Amer) 41.7 Est GFR (Non-Af Amer) 36.0 BUN/Creatinine Ratio 32.1 H Glucose 90 Calcium 9.1
--- NOTE | 2021-10-27 19:03 | Hospitalist Progress Note ---
Date of Service October 27, 2021 Assessment & Plan (1) Generalized weakness: Plan: Generalized weakness Likely multifactorial Complicated UTI: Multidrug-resistant Proteus on outpatient urine culture Traumatic RUE cellulitis Blood Cultures: Negative to date Outpatient Urine Cx from 10/18/21: Proteus mirabilis sensitive to cefepime, ciprofloxacin, gentamicin, meropenem, Zosyn, Bactrim. Resistant to ampicillin, Unasyn, cefazolin, cefoxitin, ceftriaxone. Stool for C. difficile negative Completed 5 day course of Zosyn>>Cipro--Complete course Continue Zosyn>>> transitioned to cefdinir for cellulitis Appreciate orthopedics input. No I&D needed. Melena/Rectal Bleeding Hold IV Heparin, Coumadin INR subtherapeutic : 1.3 Avoid anticoagulants Continue IV PPI drip Type and cross Transfuse as needed Monitor H&H Appreciate GI Input Plan for EGD, flexible sigmoidoscopy tomorrow Right Upper Extremity Hematoma: RUE USD:Complex 15.2 x 3 x 3 cm right upper arm fluid collection. This favors a resolving hematoma, possibly intramuscular. Monitor H&H Consider reevaluation by Ortho if needed Chronic hypoxemic respiratory failure on home O2 Chronic diastolic heart failure Continue home diuretics as able Monitor volume status Appreciate Cardiology Input Diarrhea Stool for C. difficile negative Likely secondary to antibiotics On probiotics IV fluids as needed Hypokalemia Replace as needed Nonobstructive CAD/TIA Continue home meds 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 Supratherapeutic INR 3.5>>2.2>1.3 Held Coumadin due to GI Bleed Monitor INR Hypertension Continue home meds Monitor Hyperlipidemia on statin Bronchial asthma Ongoing steroid Rx for last couple of months Breast cancer S/P surgery, tamoxifen on hold following recent confinement for PE DVT Follows with [facility] oncologist Thyroid cancer S/P surgery Post surgical hypothyroidism chronic, stable. Continue levothyroxine Abnormal LFTs CT ABD:The liver is homogeneous in attenuation on these limited noncontrast images. There is again cholelithiasis with no CT evidence for acute cholecystitis. Avoid hepatotoxic agents as able LFTs trending down DM II New Diagnosis H/O Prediabetes Likely worsened due to setoids HbA1C:6.8 No tight glycemic control needed given advanced age Monitor BGs off meds CKD Stage III Cr at baseline Monitor renal function Avoid nephrotoxic agents as able Chronic anemia Hb at baseline Continue Iron supplements Ambulatory dysfunction/functional disability Fall precautions PT/OT DVT Px: Coumadin--Held Re: GI Bleed IV Heparin--Held Re: GI Bleed SCDs Code Status Full Code Disposition PT/OT prior to discharge (2) Cellulitis of arm, right: (3) Supratherapeutic INR: (4) Acute UTI: Admission and Anticipated Discharge Date Admission Date: October 20, 2021 Subjective Patient is seen and examined at bedside States having minimal bleeding with bowel movement this morning Right upper extremity pain is better Discussed with GI today Denies any chest pain, dyspnea, dizziness, nausea Family at bedside Offers no other complaints Review of Systems Review of Systems: All systems reviewed & are unremarkable except as noted in Subjective Physical Exam Physical Exam: Physical Exam: Vitals signs as noted above General Appearance:Moderately built and nourished, no apparent distress Head: normocephalic, Atraumatic Eyes: normal inspection, EOMI Neck: supple, Trachea midline Respiratory/Chest: Normal breath sounds, Scant Wheezing, No accessory muscle use Cardiovascular: S1, S2, +murmur Abdomen/GI:Soft, Non tender, Bowel sounds present Extremities/Musculoskeletal:normal inspection, Trace edema, RUE swelling Neurologic/Psych:AAOX2, grossly no focal neurological deficits Skin: normal color, warm Results & Data Results & Data ([facility]) Vital Signs (Past 12 Hours) Vital Signs Temp Pulse Pulse Pulse Resp BP Pulse Ox 10/27/21 18:31 37.0 C 89 17 124/71 97 10/27/21 16:19 36.8 C 84 16 143/59 H 98 10/27/21 15:24 86 10/27/21 15:08 68 18 97 10/27/21 12:23 36.7 C 92 H 16 145/73 H 98 10/27/21 11:57 85 18 95 10/27/21 07:56 37.0 C 77 16 147/63 H 100 10/27/21 07:20 75 10/27/21 07:18 71 16 93 Laboratory Results Short CBC 10/26/21 10/27/21 10/27/21 Range/Units 19:54 01:50 06:20 WBC 14.73 H (4.8-10.8) K/uL Hgb 8.7 L 8.2 L 8.7 L (12.0-16.0) g/dL Hct 27.1 L 25.1 L 27.9 L (37-47) % Plt Count 599 H (130-400) K/uL BMP 10/27/21 06:12 Sodium 137 Potassium 3.6 Chloride 98 Carbon Dioxide 32 BUN 42 H Creatinine 1.31 H D Glucose 90 Calcium 9.1
[2021-10-27] MEDS: MONTELUKAST SODIUM 10 MG TABLET PO SCH (20:28)
[2021-10-27] MEDS: ISOSORBIDE MONO EXTENDED REL 60 MG TABCR PO SCH (20:29)
[2021-10-28] MEDS: PANTOprazole 40 MG in DEXTROSE 5% 100 ML IV SCH ×4 (00:51→19:59)
[2021-10-28] MEDS: ACETAMINOPHEN 1,000 MG/100 ML VIAL IV PRN (05:19)
[2021-10-28] MEDS: carvediloL 12.5 MG TAB PO SCH ×2 (05:46→17:25)
[2021-10-28] MEDS: LEVOTHYROXINE SODIUM 200 MCG TABLET PO SCH (05:46)
[2021-10-28 06:39] LABS: Hematocrit (blood only) 25.4 % (37-47); Hemoglobin 7.9 g/dL (12.0-16.0); Mean Corpuscular Hemoglobin 28.5 pg (25-34); Mean Corpuscular Hgb Conc 31.1 g/dL (32-36); Mean Corpuscular Volume 91.7 fL (80-100); Mean Platelet Volume 8.9 fL (7.4-10.4); Platelet Count 531 K/uL (130-400); RDW Coefficient of Variation 16.5 % (11.5-14.5); RDW Standard Deviation 53.9 fL (36.4-46.3); Red Blood Count 2.77 M/uL (4.2-5.4); White Blood Count 13.97 K/uL (4.8-10.8)
[2021-10-28 06:52] LABS: INR 1.3 (0.9-1.1)
[2021-10-28 06:59] LABS: BUN Creatinine Ratio 25.2 (10-20); Calcium 8.6 mg/dl (8.5-10.1); Creatinine Clr Calc Pharmacy 24.9 ml/min; Est GFR (African American) 43.3 ml/min; Est GFR (Non-African American) 37.4 ml/min; Potassium 3.9 mmol/L (3.5-5.1)
[2021-10-28] MEDS: LEVALBUTEROL HCL 1.25 MG/3 ML NEB INH SCH ×4 (07:11→19:19)
[2021-10-28] MEDS: BUDESONIDE 0.5 MG/2 ML VIAL (PULMICORT) INH SCH ×2 (07:11→19:19)
[2021-10-28] MEDS: LACTOBACILLUS ACIDOPHILUS 1 GM PACK PO SCH ×3 (08:59→17:28)
[2021-10-28] MEDS: FERROUS SULFATE 325 MG TAB PO SCH ×2 (09:00→21:27)
[2021-10-28] MEDS: NYSTATIN SUSP 500,000 U/5 ML UDC BUCCAL SCH ×2 (09:01→21:28)
[2021-10-28] MEDS: POTASSIUM CHLORIDE 10 MEQ TABCR PO SCH ×2 (09:01→21:27)
[2021-10-28] MEDS: SUCRALFATE 1 GM/10 ML UDC PO SCH ×3 (09:02→21:27)
[2021-10-28] MEDS: ESCITALOPRAM OXALATE 10 MG TAB PO SCH (09:03)
[2021-10-28] MEDS: CIPROFLOXACIN 250 MG TAB PO SCH (09:04)
[2021-10-28] MEDS: CEFDINIR 300 MG CAP PO SCH (09:06)
[2021-10-28] MEDS: FEXOFENADINE HCL 180 MG TAB PO SCH (09:06)
[2021-10-28] MEDS: AZELASTINE HCL 0.1% NASAL 200 SPRAYS/27,400 MCG BTL SCH ×2 (09:06→21:25)
[2021-10-28] MEDS: FLUTICASONE/VILANTEROL 200/25MCG 14 PUFFS/INHALER INH SCH (09:07)
[2021-10-28] MEDS: predniSONE 2.5 MG TAB PO SCH (09:07)
[2021-10-28] MEDS: TRIAMCINOLONE ACET NASAL SPRAY 10.8ML BTL SCH ×2 (09:07→21:26)
--- NOTE | 2021-10-28 09:58 | Anesthesiology Consultation ---
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 Requested none History Surgery Operation Date: 10/28/21 16:30 Proposed Procedures p Flexible Sigmoidoscopy Dr Nancy Cruz, s Esophagogastroduodenoscopy Dr Nancy Cruz, DO Height/Weight Height: 4 ft 10 in Weight: 70.1 kg 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, 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 not to take sulfamethoxazole Allergy Mild RASH Verified 10/19/21 23:19 trimethoprim Allergy Mild RASH Verified 10/19/21 23:19 amlodipine Allergy legs swell Verified 10/19/21 23:19 severe azithromycin Allergy Unknown Verified 10/19/21 23:19 ipratropium Allergy Anaphylaxis Verified 10/19/21 23:19 Sulfa (Sulfonamide Allergy Difficulty Verified 10/19/21 23:19 Antibiotics) Breathing doxycycline AdvReac Unknown GI upset Verified 10/22/21 22:11 cefuroxime [From Ceftin] AdvReac Diarrhea Verified 10/22/21 09:13 narcotic in general AdvReac Severe Hallucinati Uncoded 10/19/21 23:20 ng Medications Home Medications Medication Instructions Recorded Confirmed Last Taken allopurinol 100 mg tablet 200 mg PO QAM 02/19/19 10/19/21 10/19/21 09:00 atorvastatin 40 mg tablet 40 mg PO PM 02/19/19 10/19/21 10/19/21 17:00 azelastine 137 mcg (0.1 %) nasal 1 spray INTRANASAL BID 02/19/19 10/19/21 10/18/21 17:00 spray aerosol budesonide 0.5 mg/2 mL suspension 0.5 mg INHALATION BID 02/19/19 10/19/21 10/19/21 17:00 for nebulization carvedilol 25 mg tablet (Coreg) 12.5 mg PO BID 02/19/19 10/19/21 10/19/21 17:00 cholecalciferol (vitamin D3) 25 2,000 unit PO 3XWK 02/19/19 10/19/21 10/19/21 09:00 mcg (1,000 unit) capsule (Vitamin D3) escitalopram oxalate 10 mg tablet 5 mg PO QAM 02/19/19 10/19/21 10/19/21 09:00 (Lexapro) fexofenadine 180 mg tablet 180 mg PO QAM 02/19/19 10/19/21 10/19/21 09:00 levalbuterol HCl 1.25 mg/3 mL 1.25 mg INHALATION QID 02/19/19 10/19/21 10/19/21 18:00 solution for nebulization (Xopenex) montelukast 10 mg tablet 10 mg PO PM 02/19/19 10/19/21 10/19/21 18:00 nitroglycerin 0.4 mg sublingual 0.4 mg BUCCAL .UD PRN 02/19/19 10/19/21 Unknown tablet (Nitrostat) pantoprazole 40 mg tablet,delayed 40 mg PO BID 02/19/19 10/19/21 10/19/21 18:00 release (Protonix) sodium chloride 0.65 % nasal spray 2 spray INTRANASAL QID PRN 02/19/19 10/19/21 Unknown aerosol (Saline Nasal) spironolactone 25 mg tablet 12.5 mg PO QAM 02/19/19 10/19/21 10/19/21 09:00 tamoxifen 20 mg tablet 20 mg PO . ON HOLD 02/19/19 10/19/21 09/24/21 triamcinolone acetonide 55 mcg 1 spray INTRANASAL BID 02/19/19 10/19/21 10/19/21 18:00 nasal spray aerosol (Nasacort) isosorbide mononitrate 60 mg 60 mg PO HS 11/15/20 10/19/21 10/18/21 22:00 tablet,extended release 24 hr needs todays dose levalbuterol tartrate 45 1 puff INHALATION Q4H PRN 11/15/20 10/19/21 Unknown mcg/actuation aerosol inhaler acetaminophen 500 mg tablet 500 mg PO TID 05/19/21 10/19/21 10/19/21 21:00 magnesium oxide 400 mg (241.3 mg 800 mg PO QAM 05/19/21 10/19/21 10/19/21 09:00 magnesium) tablet sucralfate 100 mg/mL oral 10 ml PO TID 05/19/21 10/19/21 10/19/21 16:00 suspension needs 2200 dose famotidine 20 mg tablet 20 mg PO BID 05/28/21 10/19/21 10/19/21 17:00 benzonatate 100 mg capsule 100 mg PO TID PRN 09/24/21 10/19/21 Unknown calcitriol 0.25 mcg capsule 0.25 mcg PO 3XWK 09/24/21 10/19/21 10/18/21 09:00 clotrimazole-betamethasone 1 1 applic TOPICAL BID PRN 09/24/21 10/19/21 Unknown %-0.05 % topical cream guaifenesin 600 mg tablet, 600 mg PO BID 09/24/21 10/19/21 10/19/21 18:00 extended release 12 hr (Mucinex) hydralazine 10 mg tablet 10 mg PO TID PRN 09/24/21 10/19/21 Unknown iron,carbonyl 65 mg-vitamin C 125 1 tab PO BID 09/24/21 10/19/21 10/19/21 18:00 mg tablet,delayed release (Vitron-C) lidocaine HCl 2 % mucosal solution 1 applic TOPICAL DAILY PRN 09/24/21 10/19/21 Unknown budesonide-formoterol HFA 160 2 puff INHALATION BID 10/19/21 10/19/21 10/19/21 09:00 mcg-4.5 mcg/actuation aerosol inhaler (Symbicort) cefdinir 300 mg capsule 300 mg PO QAM 10/19/21 10/19/21 10/19/21 12:00 docusate sodium 100 mg capsule 200 mg PO BID 10/19/21 10/19/21 10/19/21 18:00 furosemide 40 mg tablet 60 mg PO UD 10/19/21 10/19/21 10/19/21 14:00 levothyroxine 200 mcg tablet 200 mcg PO DAILYBB 10/19/21 10/19/21 10/19/21 06:00 nystatin 100,000 unit/gram topical 1 applic TOPICAL BID PRN 10/19/21 10/19/21 Unknown powder nystatin 100,000 unit/mL oral 10 ml BUCCAL BID 10/19/21 10/19/21 10/18/21 18:00 suspension potassium chloride 10 mEq 10 meq PO UD 10/19/21 10/19/21 10/19/21 14:00 tablet,extended release prednisone 5 mg tablet 5 mg PO DAILY 10/19/21 10/19/21 10/19/21 09:00 warfarin 2 mg tablet 1 mg PO . CURRENTLY ON HOLD 10/19/21 10/19/21 10/17/21 18:00 2mg now reduced to 1 Active Medications Generic Name Dose Route Start Last Admin Trade Name Toniq PRN Reason Stop Dose Admin Acetaminophen 500 mg 10/25/21 12:43 10/27/21 21:38 Acetaminophen 500 Mg Tab PO 11/24/21 12:42 500 mg Q8H PRN Administration Pain or Fever Ascorbic Acid 250 mg 10/23/21 10:30 10/26/21 08:44 Ascorbic Acid 500 Mg Tab PO 11/22/21 10:29 250 mg BID CHETAN Administration Azelastine HCl 1 sprays 10/20/21 09:00 10/28/21 09:06 Azelastine Hcl 0.1% Nasal 200 Sprays/27,400 Mcg Btl NA 11/19/21 08:59 1 sprays BID CHETAN Administration Budesonide 0.5 mg 10/20/21 07:00 10/28/21 07:11 Budesonide 0.5 Mg/2 Ml Vial (Pulmicort) INH 11/19/21 06:59 0.5 mg BIDR CHETAN Administration Carvedilol 12.5 mg 10/21/21 17:00 10/28/21 05:46 Carvedilol 12.5 Mg Tab PO 11/20/21 16:59 12.5 mg BID@0600,1700 CHETNA Administration Cefdinir 300 mg 10/26/21 09:00 10/28/21 09:06 Cefdinir 300 Mg Cap PO 10/29/21 08:59 300 mg DAILY CHETAN Administration Diclofenac Sodium 2 gm 10/25/21 18:45 10/27/21 20:24 Diclofenac Sod 1% Gel 100 Gm Tube EXT 11/24/21 20:59 2 gm BID PRN Administration Pain Protocol Docusate Sodium 200 mg 10/20/21 09:00 10/24/21 08:51 Docusate Sodium 100 Mg Cap PO 11/19/21 08:59 Not Given BID CHETAN Escitalopram Oxalate 5 mg 10/20/21 09:00 10/28/21 09:03 Escitalopram Oxalate 10 Mg Tab PO 11/19/21 08:59 5 mg QAM CHETAN Administration Famotidine 20 mg 10/26/21 09:00 10/26/21 08:45 Famotidine 20 Mg Tab PO 11/25/21 08:59 20 mg DAILY CHETAN Administration Protocol Ferrous Sulfate 325 mg 10/23/21 10:30 10/28/21 09:00 Ferrous Sulfate 325 Mg Tab PO 11/22/21 10:29 325 mg BID CHETAN Administration Fexofenadine HCl 180 mg 10/20/21 09:00 10/28/21 09:06 Fexofenadine Hcl 180 Mg Tab PO 11/19/21 08:59 180 mg QAM CHETAN Administration Fluticasone/Vilanterol 1 puffs 10/20/21 09:00 10/28/21 09:07 Fluticasone/Vilanterol 200/25mcg 14 Puffs/Inhaler INH 11/19/21 08:59 1 puffs DAILY CHETAN Administration Furosemide 60 mg 10/21/21 17:00 10/26/21 08:46 Furosemide 20 Mg Tab PO 11/20/21 16:59 60 mg BID17 CHETAN Administration Guaifenesin 600 mg 10/20/21 09:00 10/26/21 08:44 Guaifenesin 600 Mg Tabcr PO 11/19/21 08:59 600 mg BID CHETAN Administration Heparin Sodium/Dextrose 25,000 units in 500 mls @ 14 mls/hr 10/25/21 11:00 10/26/21 13:55 Heparin Sodium/Dextrose IV 11/24/21 10:59 0 units/hr .Q24H CHETAN 0 mls/hr Titration Protocol 700 UNITS/HR Acetaminophen 1,000 mg in 100 mls @ 400 mls/hr 10/25/21 21:00 10/28/21 05:50 Ofirmev IV 10/28/21 20:59 Infused Q12 PRN Infusion Pain Protocol Pantoprazole Sodium 40 mg/ 100 mls @ 20 mls/hr 10/26/21 14:00 10/28/21 06:16 Dextrose IV 11/25/21 13:59 8 mg/hr Q5H CHETAN 20 mls/hr Administration 8 MG/HR Isosorbide Mononitrate 60 mg 10/20/21 21:00 10/27/21 20:29 Isosorbide [place] Extended Rel 60 Mg Tabcr PO 11/19/21 20:59 60 mg HS CHETAN Administration Lactobacillus Acidophilus 1 gm 10/24/21 12:00 10/28/21 08:59 Lactobacillus Acidophilus 1 Gm Pack PO 11/23/21 11:59 Not Given TIDM CHETAN Levalbuterol HCl 1.25 mg 10/20/21 07:00 10/28/21 07:11 Levalbuterol Hcl 1.25 Mg/3 Ml Neb INH 11/19/21 06:59 1.25 mg QIDR CHETAN Administration Protocol Levothyroxine Sodium 200 mcg 10/20/21 06:30 10/28/21 05:46 Levothyroxine Sodium 200 Mcg Tablet PO 11/19/21 06:29 200 mcg DAILYBB CHETAN Administration Loperamide HCl 2 mg 10/23/21 12:15 10/27/21 09:22 Loperamide Hcl 2 Mg Cap PO 11/22/21 12:14 2 mg Q6H PRN Administration Diarrhea Melatonin 3 mg 10/25/21 22:17 10/25/21 23:01 Melatonin 3 Mg Tab PO 11/24/21 22:16 3 mg HS PRN Administration Sleep Montelukast Sodium 10 mg 10/20/21 21:00 10/27/21 20:28 Montelukast Sodium 10 Mg Tablet PO 11/19/21 20:59 10 mg PM CHETAN Administration Nystatin 1 appln 10/20/21 21:16 10/26/21 08:47 Nystatin Powder 15gm Btl EXT 11/19/21 21:15 1 appln BID PRN Administration rash Nystatin 10 ml 10/20/21 21:30 10/28/21 09:01 Nystatin Susp 500,000 U/5 Ml Udc BUCCAL 10/30/21 21:29 10 ml BID CHETAN Administration Pantoprazole Sodium 40 mg 10/20/21 09:00 10/26/21 08:45 Pantoprazole 40 Mg Tab PO 11/19/21 08:59 40 mg BID CHETAN Administration Potassium Chloride 10 meq 10/20/21 10:40 10/28/21 09:01 Potassium Chloride 10 Meq Tabcr PO 11/19/21 10:39 10 meq BID CHETAN Administration Prednisone 2.5 mg 10/27/21 09:00 10/28/21 09:07 Prednisone 2.5 Mg Tab PO 11/26/21 08:59 2.5 mg DAILY CHETAN Administration Spironolactone 12.5 mg 10/24/21 09:00 10/26/21 08:45 Spironolactone 12.5 Mg Tab PO 11/23/21 08:59 12.5 mg QAM CHETAN Administration Sucralfate 1 gm 10/25/21 14:00 10/28/21 09:02 Sucralfate 1 Gm/10 Ml Udc PO 11/24/21 13:59 1 gm TID CHETAN Administration Triamcinolone Acetonide 1 sprays 10/20/21 09:00 10/28/21 09:07 Triamcinolone Acet Nasal [place] 10.8ml Btl NA 11/19/21 08:59 1 sprays BID CHETAN Administration Past Medical History Medical History Anemia recent hospitalization at [facility] 2 weeks ago Anticoagulated on Coumadin Anxiety Asthma, moderate persistent not well controlled, frequent nebulizer use Chronic diastolic CHF (congestive heart failure) follows with Dr. Benjamin CKD (chronic kidney disease), stage III follows [address] Dr. 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 Father , Passed age 50 of [place] No problems noted. Brother Lung fibrosis Brother , Passed age 63 of allergic reaction to antibiotics No problems noted. Sister , Passed age 83 of "electrolyte disturbances" DCIS (ductal carcinoma in situ) Sister , Passed age 84 from post surgical complications No problems noted. Sister No problems noted. Daughter No problems noted. Daughter No problems noted. Son No problems noted. Past Surgical History Surgical History H/O total thyroidectomy History of appendectomy History of bladder suspension procedure History of cardiac cath 10 yrs ago > no stents History of cataract surgery bilat History of colonoscopy History of esophagogastroduodenoscopy (EGD) History of herniorrhaphy History of tooth extraction Social History Smoking Status: Never smoker Hx Alcohol Use: No Alcohol type: wine alcohol intake frequency: holidays/special occasions only Hx Substance Use: No substance use type: does not use Physical Exam Vital Signs Last Vital Signs Temp 36.6 C 10/28/21 08:33 Pulse 81 10/28/21 08:33 Resp 18 10/28/21 08:33 BP 128/66 10/28/21 08:33 Pulse Ox 95 10/28/21 08:33 Testing Laboratory Results 10/28/21 06:09 10/28/21 06:09 PT 14.0 Seconds (9.0-12.0) H 10/28/21 06:09 INR 1.3 (0.9-1.1) H 10/28/21 06:09 APTT 55.0 Seconds (21.0-31.0) H* 10/26/21 06:42 Hemoglobin A1c 6.8 % (4.5-5.6) H 10/19/21 19:45 Urine Color Yellow 10/19/21 18:54 Urine Appearance Cloudy (Clear) A 10/19/21 18:54 Urine pH 5.0 (4.5-7.5) 10/19/21 18:54 Ur Specific [place] 1.015 (1.000-1.030) 10/19/21 18:54 Urine Protein Trace (Negative) H 10/19/21 18:54 Urine Glucose (UA) Negative (Negative) 10/19/21 18:54 Urine Ketones Negative (Negative) 10/19/21 18:54 Urine Nitrite Negative (Negative) 10/19/21 18:54 Ur Leukocyte Esterase 2+ (Negative) H 10/19/21 18:54 Urine WBC (Auto) >30 /hpf (0-5) H 10/19/21 18:54 Urine RBC (Auto) 0-4 /hpf (0-4) 10/19/21 18:54 U Hyaline Cast (Auto) 1-5 /lpf (0-5) 10/19/21 18:54 U Epithel Cells (Auto) >30 /lpf (0-5) H 10/19/21 18:54 Urine Bacteria (Auto) 1+ (Negative) H 10/19/21 18:54 Blood Type A Positive 10/26/21 15:10 Antibody Screen NEGATIVE 10/26/21 15:10 10/19/21 20:00 Aerobic Blood Culture - Final Blood No growth in Aerobic bottle after 5 days. Anaerobic Blood Culture - Final 10/19/21 19:45 Aerobic Blood Culture - Final Blood No growth in Aerobic bottle after 5 days. Anaerobic Blood Culture - Final No growth in Anaerobic bottle after 5 days. 10/19/21 18:54 Urine Culture - Final Urine,Clean Catch More than three types of organisms present, all moderate counts mixed probable skin alin. No further identifications or sensitivities to follow. Electrocardiogram Date: 10/19/21 Test Reason : Blood Pressure : / mmHG Vent. Rate : 075 BPM Atrial Rate : 075 BPM P-R Int : 230 ms QRS Dur : 076 ms QT Int : 336 ms P-R-T Axes : 028 -19 039 degrees QTc Int : 375 ms Sinus rhythm with 1st degree A-V block Low voltage QRS Inferior infarct (cited on or before 30-DEC-2017) Cannot rule out Anterior infarct (cited on or before 02-SEP-2013) Abnormal ECG When compared with ECG of 24-SEP-2021 10:25, Premature atrial complexes are no longer Present Questionable change in initial forces of Septal leads Confirmed by Casey Nunes ([id number]) on 10/21/2021 6:06:59 AM Chest X-Ray Date: 10/19/21 XR chest 1V portable HISTORY: 89 years-old Female SEPSIS acute sepsis COMPARISON: Chest radiograph 10/01/2021 TECHNIQUE: Portable AP view of the chest FINDINGS: Cardiac silhouette is enlarged. No pneumothorax, large pleural effusion or overt pulmonary edema. Unchanged right hemidiaphragmatic elevation. Moderate sized hiatal hernia with improved left basilar opacities. Degenerative changes of the shoulders and spine. IMPRESSION: 1. Cardiomegaly without pulmonary edema. 2. Moderate hiatal hernia with left basilar opacities suggestive of atelectasis. 3. Unchanged right hemidiaphragmatic elevation. Echocardiogram Date: 09/25/21 EF: 60-65% LV Function: normal RWMA: + none Other Findings: + diastolic dysfunction (Grade 3)
--- NOTE | 2021-10-28 10:18 | Gastroenterology Progress Note ---
Date of Service October 28, 2021 Assessment & Plan (1) GI bleed: Plan: Rectal bleeding, slight decrease in Hb, mild periumbilical pain. Plan: EGD and flex sig today by Dr. Cruz Keep NPO and continue to hold the warfarin. Tap water enema x 2. Further recommendations to follow endoscopy. Admission and Anticipated Discharge Date Admission Date: October 20, 2021 Supervising Physician Co-Signing Physician Notes I have seen and examined the patient with SOPHIE Romeo whose note reflects our findings and plan. EGD and flex today Subjective Patient is seen and examined at bedside [facility] this morning. Hb 10 on arrival 7.9 this morning. BUN 30. No complaints this morning. Review of Systems Review of Systems: ROS: Gen: Denies weakness, fevers, or weight loss Eyes: No eye redness, or pain, no recent vision changes Resp: Denies any SOB, no cough Cardio: Denies irregular HR or CP GI: As per HPI, otherwise negative : Denies pain on urination Skin: No jaundice, itching or new rashes A total of 12 systems were reviewed, all others (-) Physical Exam Constitutional: well developed, + ill appearing, + thin and cooperative Eyes: PERRL, conjunctivae normal, anicteric sclerae ENMT: external ear and nose normal, oropharynx normal Neck: trachea midline, no thyromegaly Respiratory: normal respiratory effort Cardiovascular: RRR, no murmur, no edema Gastrointestinal (Abdomen): Inspection/Auscultation: abdomen normal to inspection and normal bowel sounds; abdomen not distended and no abdominal edema Percussion/Palpation: abdomen soft; abdomen nontender, no guarding and abdomen not rigid Skin: no rashes, warm and dry normal turgor Neurologic: PERRL, EOMI, accommodation nl, no face palsy, no dysarthria awake; not confused Psychiatric: A+Ox3, euthymic affect Orientation: alert, oriented x 3 and cooperative Lymphatic: no cervical or axillary lymphadenopathy Results & Data ([facility]) Vital Signs (Past 12 Hours) Vital Signs Temp Pulse Pulse Pulse Resp BP Pulse Ox 10/28/21 08:33 36.6 C 81 18 128/66 95 10/28/21 07:12 80 16 96 10/28/21 05:46 80 158/68 H 10/28/21 03:25 36.5 C 82 20 148/68 H 96 10/28/21 00:21 87 10/27/21 23:00 36.5 C 82 20 138/82 98 Laboratory Results WBC 13, Hb 7.9, Hct 531, PT 14, INR 1.3, Na 134, K 3.9, Cl 98, CO2 31, BUN 32, Cr 1.27. Diagnostic Findings CTAP 10/20/21: 1. Compared to previous examination, there has been interval resolution of left basilar atelectasis. 2. There is again cholelithiasis with no CT evidence for acute cholecystitis. 3. There is again diffuse sigmoid diverticulosis without evidence for diverticulitis. 4. Moderate size hiatal hernia is again seen. 5. Additional nonacute findings are delineated above.
--- NOTE | 2021-10-28 10:25 | History & Physical Report ---
Date of Service October 28, 2021 Assessment & Plan (1) Anemia: Plan: EGD and flex sig today (2) GI bleeding: Admission and Anticipated Discharge Date Admission Date: October 20, 2021 History of Present Illness Chief Complaint: rectal bleeding;?melena Primary Care Provider: Urszula Calvert MD rectal bleeding; ?melena 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, cosmetic maker recommended not to take sulfamethoxazole Allergy Mild RASH Verified 10/19/21 23:19 trimethoprim Allergy Mild RASH Verified 10/19/21 23:19 amlodipine Allergy legs swell Verified 10/19/21 23:19 severe azithromycin Allergy Unknown Verified 10/19/21 23:19 ipratropium Allergy Anaphylaxis Verified 10/19/21 23:19 Sulfa (Sulfonamide Allergy Difficulty Verified 10/19/21 23:19 Antibiotics) Breathing doxycycline AdvReac Unknown GI upset Verified 10/22/21 22:11 cefuroxime [From Ceftin] AdvReac Diarrhea Verified 10/22/21 09:13 narcotic in general AdvReac Severe Hallucinati Uncoded 10/19/21 23:20 ng Home Medications Medication Instructions Recorded Confirmed Type allopurinol 100 mg tablet 200 mg PO QAM 02/19/19 10/19/21 History atorvastatin 40 mg tablet 40 mg PO PM 02/19/19 10/19/21 History azelastine 137 mcg (0.1 %) nasal 1 spray INTRANASAL BID 02/19/19 10/19/21 History spray aerosol budesonide 0.5 mg/2 mL suspension 0.5 mg INHALATION BID 02/19/19 10/19/21 History for nebulization carvedilol 25 mg tablet (Coreg) 12.5 mg PO BID 02/19/19 10/19/21 History cholecalciferol (vitamin D3) 25 2,000 unit PO 3XWK 02/19/19 10/19/21 History mcg (1,000 unit) capsule (Vitamin D3) escitalopram oxalate 10 mg tablet 5 mg PO QAM 02/19/19 10/19/21 History (Lexapro) fexofenadine 180 mg tablet 180 mg PO QAM 02/19/19 10/19/21 History levalbuterol HCl 1.25 mg/3 mL 1.25 mg INHALATION QID 02/19/19 10/19/21 History solution for nebulization (Xopenex) montelukast 10 mg tablet 10 mg PO PM 02/19/19 10/19/21 History nitroglycerin 0.4 mg sublingual 0.4 mg BUCCAL .UD PRN 02/19/19 10/19/21 History tablet (Nitrostat) pantoprazole 40 mg tablet,delayed 40 mg PO BID 02/19/19 10/19/21 History release (Protonix) sodium chloride 0.65 % nasal spray 2 spray INTRANASAL QID PRN 02/19/19 10/19/21 History aerosol (Saline Nasal) spironolactone 25 mg tablet 12.5 mg PO QAM 02/19/19 10/19/21 History tamoxifen 20 mg tablet 20 mg PO . ON HOLD 02/19/19 10/19/21 History triamcinolone acetonide 55 mcg 1 spray INTRANASAL BID 02/19/19 10/19/21 History nasal spray aerosol (Nasacort) isosorbide mononitrate 60 mg 60 mg PO HS 11/15/20 10/19/21 History tablet,extended release 24 hr levalbuterol tartrate 45 1 puff INHALATION Q4H PRN 11/15/20 10/19/21 History mcg/actuation aerosol inhaler acetaminophen 500 mg tablet 500 mg PO TID 05/19/21 10/19/21 History magnesium oxide 400 mg (241.3 mg 800 mg PO QAM 05/19/21 10/19/21 History magnesium) tablet sucralfate 100 mg/mL oral 10 ml PO TID 05/19/21 10/19/21 History suspension famotidine 20 mg tablet 20 mg PO BID 05/28/21 10/19/21 History benzonatate 100 mg capsule 100 mg PO TID PRN 09/24/21 10/19/21 History calcitriol 0.25 mcg capsule 0.25 mcg PO 3XWK 09/24/21 10/19/21 History clotrimazole-betamethasone 1 1 applic TOPICAL BID PRN 09/24/21 10/19/21 History %-0.05 % topical cream guaifenesin 600 mg tablet, 600 mg PO BID 09/24/21 10/19/21 History extended release 12 hr (Mucinex) hydralazine 10 mg tablet 10 mg PO TID PRN 09/24/21 10/19/21 History iron,carbonyl 65 mg-vitamin C 125 1 tab PO BID 09/24/21 10/19/21 History mg tablet,delayed release (Vitron-C) lidocaine HCl 2 % mucosal solution 1 applic TOPICAL DAILY PRN 09/24/21 10/19/21 History budesonide-formoterol HFA 160 2 puff INHALATION BID 10/19/21 10/19/21 History mcg-4.5 mcg/actuation aerosol inhaler (Symbicort) cefdinir 300 mg capsule 300 mg PO QAM 10/19/21 10/19/21 History docusate sodium 100 mg capsule 200 mg PO BID 10/19/21 10/19/21 History furosemide 40 mg tablet 60 mg PO UD 10/19/21 10/19/21 History levothyroxine 200 mcg tablet 200 mcg PO DAILYBB 10/19/21 10/19/21 History nystatin 100,000 unit/gram topical 1 applic TOPICAL BID PRN 10/19/21 10/19/21 History powder nystatin 100,000 unit/mL oral 10 ml BUCCAL BID 10/19/21 10/19/21 History suspension potassium chloride 10 mEq 10 meq PO UD 10/19/21 10/19/21 History tablet,extended release prednisone 5 mg tablet 5 mg PO DAILY 10/19/21 10/19/21 History warfarin 2 mg tablet 1 mg PO . CURRENTLY ON HOLD 10/19/21 10/19/21 History Past Med/Surg History Medical History Anemia recent hospitalization at [facility] 2 weeks ago Anticoagulated on Coumadin Anxiety Asthma, moderate persistent not well controlled, frequent nebulizer use Chronic diastolic CHF (congestive heart failure) follows with Dr. Benjamin CKD (chronic kidney disease), stage III follows [address] Dr. Hernandez COPD (chronic obstructive pulmonary disease) not well controlled Dyslipidemia GERD (gastroesophageal reflux disease) GI bleed recent hospitalization at [facility] > 1 unit blood Gout Hard of hearing bilat aides Heart disease "nonobstructive disease per cath 2011" Hiatal hernia History of breast cancer x2 > > no chemo just tamxifen for longterm use, no surgeries Hypothyroidism (acquired) "s/p thyroidectomy and radioiodine therapy for cancer treatment" Hysterectomy (02/22/13) IBS (irritable bowel syndrome) Labile hypertension Osteoporosis (02/22/13) PAF (paroxysmal atrial fibrillation) hx of 10 yrs ago > no longer on ASA or Coumadin as of 2 weeks ago 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 Father , Passed age 50 of [place] No problems noted. Brother Lung fibrosis Brother , Passed age 63 of allergic reaction to antibiotics No problems noted. Sister , Passed age 83 of "electrolyte disturbances" DCIS (ductal carcinoma in situ) Sister , Passed age 84 from post surgical complications No problems noted. Sister No problems noted. Daughter No problems noted. Daughter No problems noted. Son No problems noted. 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) Other Information That Helps Us Care for You: No Feels Safe at Home: Yes Safety Concerns: Feels Safe At This Time caffeine: No during the past year weight has: remained stable Assistive Devices: Oxygen - Continuous and Walker Results & Data ([facility]) Vital Signs (Past 12 Hours) Vital Signs Temp Pulse Pulse Pulse Resp BP Pulse Ox 10/28/21 08:33 36.6 C 81 18 128/66 95 10/28/21 07:12 80 16 96 10/28/21 05:46 80 158/68 H 10/28/21 03:25 36.5 C 82 20 148/68 H 96 10/28/21 00:21 87 10/27/21 23:00 36.5 C 82 20 138/82 98 Code Status & VTE Plan VTE Prophylaxis Plan VTE Prophylaxis will be ordered: Yes
[2021-10-28] MEDS ORDERED: PROPOFOL IV EMULSION 10 MG/ML 20 ML VIAL IV ONE (10:45)
[2021-10-28] MEDS ORDERED: LIDOCAINE 2% 2 ML VIAL/AMP(20MG/ML) INFIL ONE (10:45)
--- NOTE | 2021-10-28 11:23 | GI REPORT ---
Patient Name: Vanessa Gillis Procedure Date: 10/28/2021 10:41 AM Date of : 1930 Admit Type: Inpatient Age: 89 Gender: Female Attending MD: Amparo Cruz DO Procedure: Upper GI endoscopy Providers: Amparo Cruz DO Referring MD: Urszula Calvert Indications: Hematochezia, Melena Medicines: Propofol per Anesthesia Complications: No immediate complications. Estimated blood loss: None. Estimated Blood Loss: Estimated blood loss was none. Procedure: Pre-Anesthesia Assessment: - Prior to the procedure, a History and Physical was performed, and patient medications, allergies and sensitivities were reviewed. The patient's tolerance of previous anesthesia was reviewed. - The risks and benefits of the procedure and the sedation options and risks were discussed with the patient. All questions were answered and informed consent was obtained. - Patient identification and proposed procedure were verified prior to the procedure by the physician and the nurse. The procedure was verified in the pre-procedure area in the procedure room in the endoscopy suite. - Mental Status Examination: alert and oriented. Airway Examination: normal oropharyngeal airway and neck mobility. Respiratory Examination: clear to auscultation. CV Examination: normal. Abdominal Examination: bowel sounds present, abdomen soft and non-tender, no masses or organomegaly noted. - ASA Grade Assessment: IV - A patient with severe systemic disease that is a constant threat to life. After obtaining informed consent, the endoscope was passed under direct vision. Throughout the procedure, the patient's blood pressure, pulse, and oxygen saturations were monitored continuously. The Endoscope was introduced through the mouth, and advanced to the second part of duodenum. The upper GI endoscopy was accomplished without difficulty. The patient tolerated the procedure well. Findings: The esophagus was normal. The examined duodenum was normal. A small hiatal hernia was present. Impression: - Normal esophagus. - Normal examined duodenum. - Small hiatal hernia. - No specimens collected. Recommendation: - Perform a flexible sigmoidoscopy today. Amparo Cruz D.O. Amparo Cruz DO 10/28/2021 11:23:31 AM This report has been signed electronically. Note Initiated On: 10/28/2021 10:41 AM Number of Addenda: 0 I attest to the content of the Intraoperative Record and orders documented therein, exceptions below {[id number]}
--- NOTE | 2021-10-28 11:28 | GI REPORT ---
Patient Name: Vanessa Gillis Procedure Date: 10/28/2021 10:39 AM Date of : 1930 Admit Type: Inpatient Age: 89 Gender: Female Attending MD: Amparo Cruz DO Procedure: Flexible Sigmoidoscopy Providers: Amparo Cruz DO Referring MD: Urszula Calvert Indications: Rectal hemorrhage Medicines: Propofol per Anesthesia Complications: No immediate complications. Estimated blood loss: Minimal. Estimated Blood Loss: Estimated blood loss was minimal. Procedure: Pre-Anesthesia Assessment: - Prior to the procedure, a History and Physical was performed, and patient medications, allergies and sensitivities were reviewed. The patient's tolerance of previous anesthesia was reviewed. - The risks and benefits of the procedure and the sedation options and risks were discussed with the patient. All questions were answered and informed consent was obtained. - Patient identification and proposed procedure were verified prior to the procedure by the physician and the nurse. The procedure was verified in the pre-procedure area in the procedure room. - Mental Status Examination: alert and oriented. Airway Examination: normal oropharyngeal airway and neck mobility. Respiratory Examination: clear to auscultation. CV Examination: normal. Abdominal Examination: bowel sounds present, abdomen soft and non-tender, no masses or organomegaly noted. - ASA Grade Assessment: IV - A patient with severe systemic disease that is a constant threat to life. After obtaining informed consent, the endoscope was passed under direct vision. Throughout the procedure, the patient's blood pressure, pulse, and oxygen saturations were monitored continuously. The Endoscope was introduced through the anus and advanced to the left transverse colon. The flexible sigmoidoscopy was accomplished without difficulty. The patient tolerated the procedure well. The quality of the bowel preparation was good. Findings: The perianal and digital rectal examinations were normal. Pertinent negatives include normal sphincter tone and no palpable rectal lesions. A frond-like/villous and infiltrative non-obstructing medium-sized mass was found at 15 cm proximal to the anus. The mass was partially circumferential (involving one-half of the lumen circumference). The mass measured five cm in length. Oozing was present. Biopsies were taken with a cold forceps for histology. Verification of patient identification for the specimen was done by the physician and nurse using the patient's name and date. Estimated blood loss was minimal. Area was tattooed with an injection of 3 mL of Gilma ink. Multiple small and large-mouthed diverticula were found in the sigmoid colon. The retroflexed view of the distal rectum and anal verge was normal and showed no anal or rectal abnormalities. Impression: - Likely malignant tumor at 15 cm proximal to the anus. Biopsied. Tattooed. - Diverticulosis in the sigmoid colon. Recommendation: - Await pathology results. - Return patient to [facility] for ongoing care. Amparo Cruz D.O. Amparo Cruz DO 10/28/2021 11:28:15 AM This report has been signed electronically. Note Initiated On: 10/28/2021 10:39 AM Number of Addenda: 0 I attest to the content of the Intraoperative Record and orders documented therein, exceptions below {[id number]}
--- NOTE | 2021-10-28 15:11 | Cardiology Progress Note ---
Date of Service October 28, 2021 Assessment & Plan (1) Preop cardiovascular exam: (2) Chronic diastolic (congestive) heart failure: (3) Bilateral pulmonary embolism: (4) Asthma, moderate persistent: Plan: Patient is an 89-year-old female very complex history as outlined with difficulties with the current lower GI bleeding with mandated anticoagulation due to bilateral DVT and pulmonary emboli in September 2021. Patient now status post endoscopy studies demonstrating sigmoid mass as source of bleeding. Blood pressure is mildly labile but otherwise patient compensated. Discussed findings in detail with the patient and family with multiple questions answered Noted optimal aggressive management would include IVC filter, discontinuation of anticoagulation and proceeding to surgery to prevent progression to bowel obstruction Would need surgical evaluation. No absolute contraindications from a cardiac standpoint at this point and patient has best compensated as she has been in several months, no congestive heart failure, renal function stable. Noted surgery and any intervention will be performed at elevated risk given age and brittle diastolic heart failure, renal insufficiency. Patient continues to contemplate further however patient exam in the past have opted for aggressive therapy. Current bowel findings not immediately life- threatening and patient and family not likely to withdraw other medical therapies. Will continue to follow Admission and Anticipated Discharge Date Admission Date: October 20, 2021 Subjective Patient was seen and examined, chart, medications, telemetry reviewed Patient examined this morning both prior to recent GI procedures and afterwards. Comfortable without pain or discomfort. Sigmoidoscopy notable for sigmoid mass as source of rectal bleeding Patient currently without complaints discussing with family options and choices. Review of Systems Review of Systems: All systems reviewed & are unremarkable except as noted in Subjective Physical Exam Constitutional: no acute distress Eyes: PERRL, conjunctivae normal, anicteric sclerae ENMT: external ear and nose normal, oropharynx normal Neck: trachea midline, no thyromegaly Respiratory: Auscultation: + wheezes (Minimal with lungs mostly clear) Cardiovascular: Rate/Rhythm: regular rate and regular rhythm Heart Sounds: + murmur (Grade 1/6 systolic) Vessels: + JVD Extremities: + edema Results & Data ([facility]) Vital Signs (Past 12 Hours) Vital Signs Temp Pulse Pulse Pulse Resp BP Pulse Ox 10/28/21 11:50 77 16 99 10/28/21 11:35 77 16 176/125 H 99 10/28/21 11:20 78 12 135/62 95 10/28/21 10:33 36.3 C L 77 18 141/80 H 99 10/28/21 08:33 36.6 C 81 18 128/66 95 10/28/21 07:30 80 10/28/21 07:12 80 16 96 10/28/21 05:46 80 158/68 H 10/28/21 03:25 36.5 C 82 20 148/68 H 96 Laboratory Results Laboratory Results - last 24 hr 10/28/21 10/28/21 10/28/21 06:09 06:09 06:09 WBC 13.97 H RBC 2.77 L Hgb 7.9 L Hct 25.4 L MCV 91.7 MCH 28.5 MCHC 31.1 L RDW Std Deviation 53.9 H RDW Coeff of Chrissy 16.5 H Plt Count 531 H MPV 8.9 PT 14.0 H INR 1.3 H Sodium 134 L Potassium 3.9 Chloride 98 Carbon Dioxide 31 Anion Gap 5 BUN 32 H Creatinine 1.27 H Est Cr Clr Drug Dosing 24.9 Est GFR ( Amer) 43.3 Est GFR (Non-Af Amer) 37.4 BUN/Creatinine Ratio 25.2 H Glucose 94 Calcium 8.6 Carcinoembryonic Ag 10/28/21 06:23 WBC RBC Hgb Hct MCV MCH MCHC RDW Std Deviation RDW Coeff of Chrissy Plt Count MPV PT INR Sodium Potassium Chloride Carbon Dioxide Anion Gap BUN Creatinine Est Cr Clr Drug Dosing Est GFR ( Amer) Est GFR (Non-Af Amer) BUN/Creatinine Ratio Glucose Calcium Carcinoembryonic Ag 9.5 H
--- NOTE | 2021-10-28 15:25 | Anesthesiology Progress Note ---
Date of Service October 28, 2021 Anesthesia Post Procedure Vital Signs Vital Signs: Temp Pulse Pulse Pulse Resp BP Pulse Ox 10/28/21 11:50 77 16 99 10/28/21 11:35 77 16 176/125 H 99 10/28/21 11:20 78 12 135/62 95 10/28/21 10:33 36.3 C L 77 18 141/80 H 99 10/28/21 08:33 36.6 C 81 18 128/66 95 10/28/21 07:30 80 10/28/21 07:12 80 16 96 10/28/21 05:46 80 158/68 H 10/28/21 03:25 36.5 C 82 20 148/68 H 96 10/28/21 00:21 87 10/27/21 23:00 36.5 C 82 20 138/82 98 10/27/21 19:43 81 17 97 10/27/21 18:31 37.0 C 89 17 124/71 97 10/27/21 16:19 36.8 C 84 16 143/59 H 98 Pain Intensity Right Shoulder: Pain Intensity: 10 Right Upper Arm: Pain Intensity: 2 Head: Pain Intensity: 4 Transfer of Care Handoff Completed per policy Notes Mental Status: alert / awake / arousable and participated in evaluation Patient Amnestic to Procedure: Yes Nausea / Vomiting: adequately controlled Pain: adequately controlled Airway Patency, RR, SpO2: stable & adequate BP & HR: stable & adequate Hydration State: stable & adequate Anesthetic Complications: no major complications apparent and Pt Satisfied with anesthetic care
[2021-10-28] MEDS: ACETAMINOPHEN 500 MG TAB PO PRN (17:30)
--- NOTE | 2021-10-28 18:15 | Hospitalist Progress Note ---
Date of Service October 28, 2021 Assessment & Plan (1) Generalized weakness: Plan: Generalized weakness Likely multifactorial Complicated UTI: Multidrug-resistant Proteus on outpatient urine culture Traumatic RUE cellulitis Blood Cultures: Negative to date Outpatient Urine Cx from 10/18/21: Proteus mirabilis sensitive to cefepime, ciprofloxacin, gentamicin, meropenem, Zosyn, Bactrim. Resistant to ampicillin, Unasyn, cefazolin, cefoxitin, ceftriaxone. Stool for C. difficile negative Completed 5 day course of Zosyn>>Cipro--Completed course Continue Zosyn>>> transitioned to cefdinir for cellulitis Appreciate orthopedics input. No I&D needed as per Ortho. 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 Biopsied. Tattooed. Diverticulosis in the sigmoid colon. S/P EGD:Normal esophagus. Normal examined duodenum. Small hiatal hernia. No specimens collected. Pathology Pending Melena/Rectal Bleeding likely due to Colon mass Hold IV Heparin, Coumadin INR subtherapeutic : 1.3 Avoid anticoagulants Continue IV PPI Type and cross Transfuse as needed Monitor H&H Appreciate GI Input Surgery consulted for Input Offered to transfer to Tertiary hospital given lack to availability of Vascular surgery till Monday and need for IVC filter placement given PE/DVT and bleeding issues. Patient/Family prefers not be transferred and would like to have the IVC filter placed at [facility] next week if offered. Right Upper Extremity Hematoma: RUE USD:Complex 15.2 x 3 x 3 cm right upper arm fluid collection. This favors a resolving hematoma, possibly intramuscular. Monitor H&H Consider reevaluation by Ortho if needed Chronic hypoxemic respiratory failure on home O2 Chronic diastolic heart failure Continue home diuretics as able Monitor volume status Appreciate Cardiology Input Diarrhea Stool for C. difficile negative Likely secondary to antibiotics On probiotics IV fluids as needed Hypokalemia Replace as needed Nonobstructive CAD/TIA Continue home meds 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 Supratherapeutic INR 3.5>>2.2>1.3 Held Coumadin due to GI Bleed Monitor INR Plan for IVC filter as anticoagulation Risks Vs Benefits discussed with patient/family given inability to restart anticoagulation currently and risk for clotting/bleeding Patient/Family understands and agrees with current management Hypertension Continue home meds Monitor Hyperlipidemia on statin Bronchial asthma Ongoing steroid Rx for last couple of months Breast cancer S/P surgery, tamoxifen on hold following recent confinement for PE DVT Follows with [facility] oncologist Thyroid cancer S/P surgery Post surgical hypothyroidism chronic, stable. Continue levothyroxine Abnormal LFTs CT ABD:The liver is homogeneous in attenuation on these limited noncontrast images. There is again cholelithiasis with no CT evidence for acute cholecystitis. Avoid hepatotoxic agents as able LFTs trending down DM II New Diagnosis H/O Prediabetes Likely worsened due to setoids HbA1C:6.8 No tight glycemic control needed given advanced age Monitor BGs off meds CKD Stage III Cr at baseline Monitor renal function Avoid nephrotoxic agents as able Chronic anemia Hb at baseline Continue Iron supplements Ambulatory dysfunction/functional disability Fall precautions PT/OT DVT Px: Coumadin--Held Re: GI Bleed IV Heparin--Held Re: GI Bleed SCDs Code Status Full Code Disposition PT/OT prior to discharge (2) Cellulitis of arm, right: (3) Supratherapeutic INR: (4) Acute UTI: Admission and Anticipated Discharge Date Admission Date: October 20, 2021 Subjective Patient is seen and examined at bedside States feeling tired No bleeding issues today Discussed with Cardiology, GI and family today Patient had EGD, Flex Sigmoidoscopy today Denies any chest pain, dyspnea, dizziness, nausea Family at bedside Review of Systems Review of Systems: All systems reviewed & are unremarkable except as noted in Subjective Physical Exam Physical Exam: Physical Exam: Vitals signs as noted above General Appearance:Moderately built and nourished, no apparent distress Head: normocephalic, Atraumatic Eyes: normal inspection, EOMI Neck: supple, Trachea midline Respiratory/Chest: Normal breath sounds, CTA, No accessory muscle use Cardiovascular: S1, S2, +murmur Abdomen/GI:Soft, Non tender, Bowel sounds present Extremities/Musculoskeletal:normal inspection, Trace edema, RUE swelling Neurologic/Psych:AAOX2, grossly no focal neurological deficits Skin: normal color, warm Results & Data Results & Data ([facility]) Vital Signs (Past 12 Hours) Vital Signs Temp Pulse Pulse Pulse Resp BP Pulse Ox 10/28/21 15:45 76 10/28/21 15:26 79 16 99 10/28/21 11:50 77 16 99 10/28/21 11:35 77 16 176/125 H 99 10/28/21 11:20 78 12 135/62 95 10/28/21 10:33 36.3 C L 77 18 141/80 H 99 10/28/21 08:33 36.6 C 81 18 128/66 95 10/28/21 07:30 80 10/28/21 07:12 80 16 96 Laboratory Results Short CBC 10/28/21 Range/Units 06:09 WBC 13.97 H (4.8-10.8) K/uL Hgb 7.9 L (12.0-16.0) g/dL Hct 25.4 L (37-47) % Plt Count 531 H (130-400) K/uL BMP 10/28/21 06:09 Sodium 134 L Potassium 3.9 Chloride 98 Carbon Dioxide 31 BUN 32 H Creatinine 1.27 H Glucose 94 Calcium 8.6
--- NOTE | 2021-10-28 19:39 | Surgery Consultation ---
Date of Consultation October 28, 2021 Assessment & Plan (1) Colonic mass: pt is a 89 year-old female who is consulted colon mass- non-obstructing, IMP: colon mass, biopsy -pending, Plan, base on pt has non-obstructing colon mass, no emergent surgery indication now, pt's daughter ask to do laparoscopic colectomy, please consult DR. Washington or colorectal surgeon tomorrow, sign off today, please call with questions, Thanks, pt's daughter agrees with the plan, I answered all questions, Supervising Physician Co-Signing Physician Notes I have seen and examined the patient with SOPHIE Romeo whose note reflects o ur findings and plan. EGD and flex today History of Present Illness Reason for Consultation: colon mass Requesting Physician: Jesse Pruett MD Attending Physician: Jesse Pruett MD History of Present Illness Chief Complaint: weakness, right upper extremity swelling Primary Care Provider: Urszula Calvert MD History obtained from patient, family, and records. 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 Patient discharged on Coumadin course and prednisone course as as well. Patient tamoxifen held until follow-up with oncology. Patient daughter noted to be somewhat confused than usual last week. Outpatient UA showed possible infection. Patient PCP prescribed cefdinir. 5 days ago, patient had trouble getting up from the toilet floor. Patient did not ask for help walking. Patient daughter subsequently noted painful right upper extremity swelling. Patient with usual cough symptoms attributed to allergies. Achy headache complaints. Patient also complaining of vague abdominal discomfort described as indigestion. Usual black stools attributed to iron. Patient brought to the ER by daughter given concerns for worsening swelling of the right upper extremity. MEDICAL HISTORY: As above. SURGERIES: Appendectomy, breast biopsy, hysterectomy, hernia repair, complete thyroidectomy FAMILY HISTORY: Breast cancer, DM, heart disease, prediabetes, thyroid nodules PERSONAL AND SOCIAL HISTORY: Nonsmoker. No chronic intake of alcoholic beverages. 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 Lives with daughters who are currently patient's caregivers. I ( Sejal morris MD ) got a call for consult colon mass, pt had sigmoidoscopy today finding- [id number] medium sized mass found at 15 cm proximal to the anus, I reviewed pt's H/P, labs and sigmoidoscopy finding with opt and her daughter, pt denies abdominal pain, no nausea, no vomiting, 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, psychological examiner recommended not to take sulfamethoxazole Allergy Mild RASH Verified 10/19/21 23:19 trimethoprim Allergy Mild RASH Verified 10/19/21 23:19 amlodipine Allergy legs swell Verified 10/19/21 23:19 severe azithromycin Allergy Unknown Verified 10/19/21 23:19 cefuroxime [From Ceftin] Allergy Diarrhea Verified 10/19/21 23:19 ipratropium Allergy Anaphylaxis Verified 10/19/21 23:19 Sulfa (Sulfonamide Allergy Difficulty Verified 10/19/21 23:19 Antibiotics) Breathing narcotic in general AdvReac Severe Hallucinati Uncoded 10/19/21 23:20 ng Home Medications Medication Instructions Recorded Confirmed Type allopurinol 100 mg tablet 200 mg PO QAM 02/19/19 10/19/21 Histo ry atorvastatin 40 mg tablet 40 mg PO PM 02/19/19 10/19/21 Histo ry azelastine 137 mcg (0.1 %) nasal 1 spray INTRANASAL BID 02/19/1912/03 History spray aerosol budesonide 0.5 mg/2 mL suspension 0.5 mg INHALATION BID 02/19/1912/03 History for nebulization carvedilol 25 mg tablet (Coreg) 12.5 mg PO BID 02/19/19 10/19/21 History cholecalciferol (vitamin D3) 25 2,000 unit PO 3XWK 02/19/19 10/19/21 History mcg (1,000 unit) capsule (Vitamin D3) escitalopram oxalate 10 mg tablet 5 mg PO QAM 02/19/19 History (Lexapro) fexofenadine 180 mg tablet 180 mg PO QAM 02/19/19 10/19/21 Hist ory levalbuterol HCl 1.25 mg/3 mL 1.25 mg INHALATION QID 02/19/19 2 History solution for nebulization (Xopenex) montelukast 10 mg tablet 10 mg PO PM 02/19/19 10/19/21 Histor y nitroglycerin 0.4 mg sublingual 0.4 mg BUCCAL .UD PRN 02/19/19 History tablet (Nitrostat) pantoprazole 40 mg tablet,delayed 40 mg PO BID 02/19/19 History release (Protonix) sodium chloride 0.65 % nasal spray 2 spray INTRANASAL QID PRN 02/19/19 10/19/21 History aerosol (Saline Nasal) spironolactone 25 mg tablet 12.5 mg PO QAM 02/19/19 10/19/21 His tory tamoxifen 20 mg tablet 20 mg PO . ON HOLD 02/19/19 10/19/21 History triamcinolone acetonide 55 mcg 1 spray INTRANASAL BID 02/19/19 History nasal spray aerosol (Nasacort) isosorbide mononitrate 60 mg 60 mg PO HS 11/15/20 10/19/21 Hi story tablet,extended release 24 hr levalbuterol tartrate 45 1 puff INHALATION Q4H PRNB 11/15/20 10/19/21 History mcg/actuation aerosol inhaler acetaminophen 500 mg tablet 500 mg PO TID 05/19/21 10/19/21 His tory magnesium oxide 400 mg (241.3 mg 800 mg PO QAM 05/19/21 2 History magnesium) tablet sucralfate 100 mg/mL oral 10 ml PO TID 05/19/21 10/19/21 Histo ry suspension famotidine 20 mg tablet 20 mg PO BID 05/28/21 10/19/21 History benzonatate 100 mg capsule 100 mg PO TID PRN 09/24/21 10/19/21 Hist ory calcitriol 0.25 mcg capsule 0.25 mcg PO 3XWK 09/24/21 10/19/21 His tory clotrimazole-betamethasone 1 1 applic TOPICAL BID PRN 09/24/21 History %-0.05 % topical cream guaifenesin 600 mg tablet, 600 mg PO BID 09/24/21 10/19/21 Hist ory extended release 12 hr (Mucinex) hydralazine 10 mg tablet 10 mg PO TID PRN 09/24/21 10/19/21 Histor y iron,carbonyl 65 mg-vitamin C 125 1 tab PO BID 09/24/21 History mg tablet,delayed release (Vitron-C) lidocaine HCl 2 % mucosal solution 1 applic TOPICAL DAILY PRN 09/24/21 10/19/21 History budesonide-formoterol HFA 160 2 puff INHALATION BID 10/19/21 10/19/21 History mcg-4.5 mcg/actuation aerosol inhaler (Symbicort) cefdinir 300 mg capsule 300 mg PO QAM 10/19/21 10/19/21 History docusate sodium 100 mg capsule 200 mg PO BID 10/19/21 10/19/21 History furosemide 40 mg tablet 60 mg PO UD 10/19/21 10/19/21 History levothyroxine 200 mcg tablet 200 mcg PO DAILYBB 10/19/21 10/19/21 Hi story nystatin 100,000 unit/gram topical 1 applic TOPICAL BID PRN 10/19/21 10/19/21 History powder nystatin 100,000 unit/mL oral 10 ml BUCCAL BID 10/19/21 10/19/21 H istory suspension potassium chloride 10 mEq 10 meq PO UD 10/19/21 10/19/21 Histo ry tablet,extended release prednisone 5 mg tablet 5 mg PO DAILY 10/19/21 10/19/21 History warfarin 2 mg tablet 1 mg PO . CURRENTLY ON HOLD 10/19/21 10/19/21 Hi story Past Med/Surg History Medical History Anemia recent hospitalization at [facility] 2 weeks agoAnticoagulated on Coumadin Anxiety Asthma, moderate persistent not well controlled, frequent nebulizer useChronic diastolic CHF (congestive heart failure) follows with Dr. Nichols (chronic kidney disease), stage III follows [address] Dr. Gill (chronic obstructive pulmonary disease) not well controlledDyslipidemia GERD (gastroesophageal reflux disease) GI bleed recent hospitalization at [facility] > 1 unit bloodGout Hard of hearing bilat aidesHeart disease "nonobstructive disease per cath 2011"Hiatal hernia History of breast cancer x2 > > no chemo just tamxifen for prison use, no surgeriesHypothyroidism (acquired) "s/p thyroidectomy and radioiodine therapy for cancer treatment"Hysterectomy (02/22/13) IBS (irritable bowel syndrome) Labile hypertension Osteoporosis (02/22/13) PAF (paroxysmal atrial fibrillation) hx of 10 yrs ago > no longer on ASA or Coumadin as of 2 weeks agoThyroid ca 2015 - Left - 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 Father , Passed age 50 of [place] No problems noted. Brother Lung fibrosisBrother , Passed age 63 of allergic reaction to antibiotics No problems noted. Sister , Passed age 83 of "electrolyte disturbances" DCIS (ductal carcinoma in situ)Sister , Passed age 84 from post surgical complications No problems noted. Sister No problems noted. Daughter No problems noted. Daughter No problems noted. Son No problems noted. 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) Other Information That Helps Us Care for You: No Feels Safe at Home: Yes Safety Concerns: Feels Safe At This Time caffeine: No during the past year weight has: remained stable Assistive Devices: Denture - Upper, Denture - Lower and Walker Review of Systems Review of Systems: As per HPI, all other systems reviewed and negative 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, psychological examiner recommended not to take sulfamethoxazole Allergy Mild RASH Verified 10/28/21 10:26 trimethoprim Allergy Mild RASH Verified 10/28/21 10:26 amlodipine Allergy legs swell Verified 10/28/21 10:26 severe azithromycin Allergy Unknown Verified 10/28/21 10:26 ipratropium Allergy Anaphylaxis Verified 10/28/21 10:26 Sulfa (Sulfonamide Allergy Difficulty Verified 10/28/21 10:26 Antibiotics) Breathing doxycycline AdvReac Unknown GI upset Verified 10/28/21 10:26 cefuroxime [From Ceftin] AdvReac Diarrhea Verified 10/28/21 10:26 narcotic in general AdvReac Severe Hallucinati Uncoded 10/28/21 10:26 ng Home Medications Medication Instructions Recorded Confirmed Type allopurinol 100 mg tablet 200 mg PO QAM 02/19/19 10/19/21 History atorvastatin 40 mg tablet 40 mg PO PM 02/19/19 10/19/21 History azelastine 137 mcg (0.1 %) nasal 1 spray INTRANASAL BID 02/19/19 10/19/21 History spray aerosol budesonide 0.5 mg/2 mL suspension 0.5 mg INHALATION BID 02/19/19 10/19/21 History for nebulization carvedilol 25 mg tablet (Coreg) 12.5 mg PO BID 02/19/19 10/19/21 History cholecalciferol (vitamin D3) 25 2,000 unit PO 3XWK 02/19/19 10/19/21 History mcg (1,000 unit) capsule (Vitamin D3) escitalopram oxalate 10 mg tablet 5 mg PO QAM 02/19/19 10/19/21 History (Lexapro) fexofenadine 180 mg tablet 180 mg PO QAM 02/19/19 10/19/21 History levalbuterol HCl 1.25 mg/3 mL 1.25 mg INHALATION QID 02/19/19 10/19/21 History solution for nebulization (Xopenex) montelukast 10 mg tablet 10 mg PO PM 02/19/19 10/19/21 History nitroglycerin 0.4 mg sublingual 0.4 mg BUCCAL .UD PRN 02/19/19 10/19/21 History tablet (Nitrostat) pantoprazole 40 mg tablet,delayed 40 mg PO BID 02/19/19 10/19/21 History release (Protonix) sodium chloride 0.65 % nasal spray 2 spray INTRANASAL QID PRN 02/19/19 10/19/21 History aerosol (Saline Nasal) spironolactone 25 mg tablet 12.5 mg PO QAM 02/19/19 10/19/21 History tamoxifen 20 mg tablet 20 mg PO . ON HOLD 02/19/19 10/19/21 History triamcinolone acetonide 55 mcg 1 spray INTRANASAL BID 02/19/19 10/19/21 History nasal spray aerosol (Nasacort) isosorbide mononitrate 60 mg 60 mg PO HS 11/15/20 10/19/21 History tablet,extended release 24 hr levalbuterol tartrate 45 1 puff INHALATION Q4H PRN 11/15/20 10/19/21 History mcg/actuation aerosol inhaler acetaminophen 500 mg tablet 500 mg PO TID 05/19/21 10/19/21 History magnesium oxide 400 mg (241.3 mg 800 mg PO QAM 05/19/21 10/19/21 History magnesium) tablet sucralfate 100 mg/mL oral 10 ml PO TID 05/19/21 10/19/21 History suspension famotidine 20 mg tablet 20 mg PO BID 05/28/21 10/19/21 History benzonatate 100 mg capsule 100 mg PO TID PRN 09/24/21 10/19/21 History calcitriol 0.25 mcg capsule 0.25 mcg PO 3XWK 09/24/21 10/19/21 History clotrimazole-betamethasone 1 1 applic TOPICAL BID PRN 09/24/21 10/19/21 History %-0.05 % topical cream guaifenesin 600 mg tablet, 600 mg PO BID 09/24/21 10/19/21 History extended release 12 hr (Mucinex) hydralazine 10 mg tablet 10 mg PO TID PRN 09/24/21 10/19/21 History iron,carbonyl 65 mg-vitamin C 125 1 tab PO BID 09/24/21 10/19/21 History mg tablet,delayed release (Vitron-C) lidocaine HCl 2 % mucosal solution 1 applic TOPICAL DAILY PRN 09/24/21 10/19/21 History budesonide-formoterol HFA 160 2 puff INHALATION BID 10/19/21 10/19/21 History mcg-4.5 mcg/actuation aerosol inhaler (Symbicort) cefdinir 300 mg capsule 300 mg PO QAM 10/19/21 10/19/21 History docusate sodium 100 mg capsule 200 mg PO BID 10/19/21 10/19/21 History furosemide 40 mg tablet 60 mg PO UD 10/19/21 10/19/21 History levothyroxine 200 mcg tablet 200 mcg PO DAILYBB 10/19/21 10/19/21 History nystatin 100,000 unit/gram topical 1 applic TOPICAL BID PRN 10/19/21 10/19/21 History powder nystatin 100,000 unit/mL oral 10 ml BUCCAL BID 10/19/21 10/19/21 History suspension potassium chloride 10 mEq 10 meq PO UD 10/19/21 10/19/21 History tablet,extended release prednisone 5 mg tablet 5 mg PO DAILY 10/19/21 10/19/21 History warfarin 2 mg tablet 1 mg PO . CURRENTLY ON HOLD 10/19/21 10/19/21 History Patient History Medical History Anemia recent hospitalization at [facility] 2 weeks ago Anticoagulated on Coumadin Anxiety Asthma, moderate persistent not well controlled, frequent nebulizer use Chronic diastolic CHF (congestive heart failure) follows with Dr. Sourav CKD (chronic kidney disease), stage III follows [address] Dr. 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, no surgeries Hypothyroidism (acquired) "s/p thyroidectomy and radioiodine therapy for cancer treatment" Hysterectomy (02/22/13) IBS (irritable bowel syndrome) Labile hypertension Osteoporosis (02/22/13) PAF (paroxysmal atrial fibrillation) hx of 10 yrs ago > no longer on ASA or Coumadin as of 2 weeks ago Thyroid ca 2016 - 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 Father , Passed age 50 of [place] No problems noted. Brother Lung fibrosis Brother , Passed age 63 of allergic reaction to antibiotics No problems noted. Sister , Passed age 83 of "electrolyte disturbances" DCIS (ductal carcinoma in situ) Sister , Passed age 84 from post surgical complications No problems noted. Sister No problems noted. Daughter No problems noted. Daughter No problems noted. Son No problems noted. 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) Other Information That Helps Us Care for You: No Feels Safe at Home: Yes Safety Concerns: Feels Safe At This Time caffeine: No during the past year weight has: remained stable Assistive Devices: Oxygen - Continuous and Walker Review of Systems Constitutional: as per Subjective / HPI Eyes: as per Subjective / HPI Respiratory: as per Subjective / HPI bilateral PE, asthma Cardiovascular: Additional Comments: CAD, P-A-fib, CHF, HTN Gastrointestinal: as per Subjective / HPI (GI bleeding, ) Genitourinary: CKD Musculoskeletal: as per Subjective / HPI Neurologic: as per Subjective / HPI (TIA) Psychiatric: as per Subjective / HPI Endocrine: hypothyroidism Hematologic / Lymphatic: anemia Physical Exam Constitutional: WD/WN, vitals as above Eyes: PERRL, conjunctivae normal, anicteric sclerae Neck: trachea midline, no thyromegaly Respiratory: normal respiratory effort, lungs clear to auscultation Cardiovascular: RRR, no murmur, no edema Gastrointestinal (Abdomen): normal bowel sounds, soft, nontender, no hepatosplenomegaly soft, NT, Nd, BS + Neurologic: patellar DTR's 2+ bilat, sensation intact Psychiatric: A+Ox3, euthymic affect Results & Data ([facility]) Vital Signs (Past 12 Hours) Vital Signs Temp Pulse Pulse Pulse Resp BP Pulse Ox 10/28/21 19:21 82 16 97 10/28/21 15:45 76 10/28/21 15:26 79 16 99 10/28/21 11:50 77 16 99 10/28/21 11:35 77 16 176/125 H 99 10/28/21 11:20 78 12 135/62 95 10/28/21 10:33 36.3 C L 77 18 141/80 H 99 10/28/21 08:33 36.6 C 81 18 128/66 95 Laboratory Results Abnormal lab results 10/28/21 10/28/21 10/28/21 Range/Units 06:09 06:09 06:09 WBC 13.97 H (4.8-10.8) K/uL RBC 2.77 L (4.2-5.4) M/uL Hgb 7.9 L (12.0-16.0) g/dL Hct 25.4 L (37-47) % MCHC 31.1 L (32-36) g/dL RDW Std Deviation 53.9 H (36.4-46.3) fL RDW Coeff of Chrissy 16.5 H (11.5-14.5) % Plt Count 531 H (130-400) K/uL PT 14.0 H (9.0-12.0) Seconds INR 1.3 H (0.9-1.1) Sodium 134 L (136-145) mmol/L BUN 32 H (6-23) mg/dl Creatinine 1.27 H (0.6-1.2) mg/dl BUN/Creatinine Ratio 25.2 H (10-20) Carcinoembryonic Ag (0-2.5) ng/ml 10/28/21 Range/Units 06:23 WBC (4.8-10.8) K/uL RBC (4.2-5.4) M/uL Hgb (12.0-16.0) g/dL Hct (37-47) % MCHC (32-36) g/dL RDW Std Deviation (36.4-46.3) fL RDW Coeff of Chrissy (11.5-14.5) % Plt Count (130-400) K/uL PT (9.0-12.0) Seconds INR (0.9-1.1) Sodium (136-145) mmol/L BUN (6-23) mg/dl Creatinine (0.6-1.2) mg/dl BUN/Creatinine Ratio (10-20) Carcinoembryonic Ag 9.5 H (0-2.5) ng/ml Diagnostic Findings sigmoidoscopy- [id number] medium sized mass found at 15 cm proximal to the anus
[2021-10-28] MEDS: MONTELUKAST SODIUM 10 MG TABLET PO SCH (21:26)
[2021-10-28] MEDS: ISOSORBIDE MONO EXTENDED REL 60 MG TABCR PO SCH (21:26)
[2021-10-28] MEDS: MELATONIN 3 MG TAB PO PRN (21:28)
[2021-10-28] MEDS: ACETAMINOPHEN 1000 MG/100 ML IV IV PRN (22:54)
[2021-10-29] MEDS: PANTOprazole 40 MG in DEXTROSE 5% 100 ML IV SCH ×3 (00:53→09:56)
[2021-10-29] MEDS: LEVOTHYROXINE SODIUM 200 MCG TABLET PO SCH (06:52)
[2021-10-29] MEDS: carvediloL 12.5 MG TAB PO SCH ×2 (06:53→17:30)
[2021-10-29] MEDS: ACETAMINOPHEN 1000 MG/100 ML IV IV PRN ×2 (06:55→20:38)
[2021-10-29] MEDS: BUDESONIDE 0.5 MG/2 ML VIAL (PULMICORT) INH SCH ×2 (07:11→19:16)
[2021-10-29] MEDS: LEVALBUTEROL HCL 1.25 MG/3 ML NEB INH SCH ×4 (07:11→19:16)
[2021-10-29 09:08] LABS: Hematocrit (blood only) 26.6 % (37-47); Hemoglobin 8.7 g/dL (12.0-16.0); Mean Corpuscular Hemoglobin 30.4 pg (25-34); Mean Corpuscular Hgb Conc 32.7 g/dL (32-36); Mean Platelet Volume 9.4 fL (7.4-10.4); Platelet Count 532 K/uL (130-400); RDW Coefficient of Variation 16.5 % (11.5-14.5); RDW Standard Deviation 55.2 fL (36.4-46.3); Red Blood Count 2.86 M/uL (4.2-5.4); White Blood Count 11.67 K/uL (4.8-10.8)
[2021-10-29 09:25] LABS: BUN Creatinine Ratio 21.6 (10-20); Calcium 8.9 mg/dl (8.5-10.1); Creatinine Clr Calc Pharmacy 25.3 ml/min; Est GFR (African American) 44.2 ml/min; Est GFR (Non-African American) 38.1 ml/min
[2021-10-29 09:32] LABS: INR 1.2 (0.9-1.1); Prothrombin Time 12.8 Seconds (9.0-12.0)
[2021-10-29] MEDS: POTASSIUM CHLORIDE 10 MEQ TABCR PO SCH ×2 (09:55→21:15)
[2021-10-29] MEDS: ESCITALOPRAM OXALATE 10 MG TAB PO SCH (09:55)
[2021-10-29] MEDS: FEXOFENADINE HCL 180 MG TAB PO SCH (09:55)
[2021-10-29] MEDS: NYSTATIN SUSP 500,000 U/5 ML UDC BUCCAL SCH ×2 (09:55→21:14)
[2021-10-29] MEDS: LACTOBACILLUS ACIDOPHILUS 1 GM PACK PO SCH ×3 (09:55→17:30)
[2021-10-29] MEDS: predniSONE 2.5 MG TAB PO SCH (09:55)
[2021-10-29] MEDS: FERROUS SULFATE 325 MG TAB PO SCH ×2 (09:55→21:15)
[2021-10-29] MEDS: SUCRALFATE 1 GM/10 ML UDC PO SCH ×3 (09:55→21:14)
[2021-10-29] MEDS: AZELASTINE HCL 0.1% NASAL 200 SPRAYS/27,400 MCG BTL SCH ×2 (09:56→21:16)
[2021-10-29] MEDS: TRIAMCINOLONE ACET NASAL SPRAY 10.8ML BTL SCH ×2 (09:56→21:17)
[2021-10-29] MEDS: FLUTICASONE/VILANTEROL 200/25MCG 14 PUFFS/INHALER INH SCH (09:56)
--- NOTE | 2021-10-29 12:11 | Surgery Consultation ---
Date of Consultation October 29, 2021 Assessment & Plan (1) Colonic mass: Had a long discussion with her and her daughter. In my mind she certainly is a high surgical risk for complications such as bleeding, vascular event, fluid imbalance, renal failure, anastomotic leak, additional pulmonary emboli etc. Nonetheless the only option really is surgical resection. I am concerned that if we do not proceed with resection, she will likely continue to bleed particularly because she needs to be on anticoagulation for her pulmonary emboli. Over time certainly what is likely a colon cancer would metastasize, as well as obstruct. We discussed all this in great detail. I most likely would be able to perform the procedure laparoscopically. Cardiology would prefer she only have 1 anesthetic and this seems reasonable. We will try and work with Dr. Marmolejo to see if he can place a vena cava filter on Monday and we can follow with a laparoscopic sigmoid colon resection. We will also work with cardiology as well as medicine to try and optimize her hemoglobin. I would recommend an arterial line intraoperatively and postoperatively in 1 or 2 nights in the intensive care unit following the procedure. I will follow her closely over the weekend to see if we can coordinate all of these events for intervention on Monday. I have answered all of her and her daughter's questions and they agree with the plan. 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 I am able to interview her and her daughter at the bedside. Her daughter is a card processing clerk and well versed in medical issues. She recently was diagnosed with bilateral DVTs as well as peripheral pulmonary emboli. She was having shortness of breath and some rectal bleeding. She underwent sigmoidoscopy yesterday although was my understanding they were able to pass the scope almost the entire way just shy of the cecum. They did find a nonobstructing sigmoid colon mass at around 15 cm. We were requested for a second opinion as they do not want to be transferred [place] a [place] [facility]. If at all possible they would like the surgery to be performed laparoscopically. Her only complaints other than the rectal bleeding are the shortness of breath. She does have a rather complex list of comorbidities. In addition to the DVTs and pulmonary emboli she has coronary artery disease asthma diastolic heart failure and recent acute renal failure secondary to IV dye. 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, outpatient interviewing clerk recommended not to take sulfamethoxazole Allergy Mild RASH Verified 10/28/21 10:26 trimethoprim Allergy Mild RASH Verified 10/28/21 10:26 amlodipine Allergy legs swell Verified 10/28/21 10:26 severe azithromycin Allergy Unknown Verified 10/28/21 10:26 ipratropium Allergy Anaphylaxis Verified 10/28/21 10:26 Sulfa (Sulfonamide Allergy Difficulty Verified 10/28/21 10:26 Antibiotics) Breathing doxycycline AdvReac Unknown GI upset Verified 10/28/21 10:26 cefuroxime [From Ceftin] AdvReac Diarrhea Verified 10/28/21 10:26 narcotic in general AdvReac Severe Hallucinati Uncoded 10/28/21 10:26 ng Home Medications Medication Instructions Recorded Confirmed Type allopurinol 100 mg tablet 200 mg PO QAM 02/19/19 10/19/21 History atorvastatin 40 mg tablet 40 mg PO PM 02/19/19 10/19/21 History azelastine 137 mcg (0.1 %) nasal 1 spray INTRANASAL BID 02/19/19 10/19/21 History spray aerosol budesonide 0.5 mg/2 mL suspension 0.5 mg INHALATION BID 02/19/19 10/19/21 History for nebulization carvedilol 25 mg tablet (Coreg) 12.5 mg PO BID 02/19/19 10/19/21 History cholecalciferol (vitamin D3) 25 2,000 unit PO 3XWK 02/19/19 10/19/21 History mcg (1,000 unit) capsule (Vitamin D3) escitalopram oxalate 10 mg tablet 5 mg PO QAM 02/19/19 10/19/21 History (Lexapro) fexofenadine 180 mg tablet 180 mg PO QAM 02/19/19 10/19/21 History levalbuterol HCl 1.25 mg/3 mL 1.25 mg INHALATION QID 02/19/19 10/19/21 History solution for nebulization (Xopenex) montelukast 10 mg tablet 10 mg PO PM 02/19/19 10/19/21 History nitroglycerin 0.4 mg sublingual 0.4 mg BUCCAL .UD PRN 02/19/19 10/19/21 History tablet (Nitrostat) pantoprazole 40 mg tablet,delayed 40 mg PO BID 02/19/19 10/19/21 History release (Protonix) sodium chloride 0.65 % nasal spray 2 spray INTRANASAL QID PRN 02/19/19 10/19/21 History aerosol (Saline Nasal) spironolactone 25 mg tablet 12.5 mg PO QAM 02/19/19 10/19/21 History tamoxifen 20 mg tablet 20 mg PO . ON HOLD 02/19/19 10/19/21 History triamcinolone acetonide 55 mcg 1 spray INTRANASAL BID 02/19/19 10/19/21 History nasal spray aerosol (Nasacort) isosorbide mononitrate 60 mg 60 mg PO HS 11/15/20 10/19/21 History tablet,extended release 24 hr levalbuterol tartrate 45 1 puff INHALATION Q4H PRN 11/15/20 10/19/21 History mcg/actuation aerosol inhaler acetaminophen 500 mg tablet 500 mg PO TID 05/19/21 10/19/21 History magnesium oxide 400 mg (241.3 mg 800 mg PO QAM 05/19/21 10/19/21 History magnesium) tablet sucralfate 100 mg/mL oral 10 ml PO TID 05/19/21 10/19/21 History suspension famotidine 20 mg tablet 20 mg PO BID 05/28/21 10/19/21 History benzonatate 100 mg capsule 100 mg PO TID PRN 09/24/21 10/19/21 History calcitriol 0.25 mcg capsule 0.25 mcg PO 3XWK 09/24/21 10/19/21 History clotrimazole-betamethasone 1 1 applic TOPICAL BID PRN 09/24/21 10/19/21 History %-0.05 % topical cream guaifenesin 600 mg tablet, 600 mg PO BID 09/24/21 10/19/21 History extended release 12 hr (Mucinex) hydralazine 10 mg tablet 10 mg PO TID PRN 09/24/21 10/19/21 History iron,carbonyl 65 mg-vitamin C 125 1 tab PO BID 09/24/21 10/19/21 History mg tablet,delayed release (Vitron-C) lidocaine HCl 2 % mucosal solution 1 applic TOPICAL DAILY PRN 09/24/21 10/19/21 History budesonide-formoterol HFA 160 2 puff INHALATION BID 10/19/21 10/19/21 History mcg-4.5 mcg/actuation aerosol inhaler (Symbicort) cefdinir 300 mg capsule 300 mg PO QAM 10/19/21 10/19/21 History docusate sodium 100 mg capsule 200 mg PO BID 10/19/21 10/19/21 History furosemide 40 mg tablet 60 mg PO UD 10/19/21 10/19/21 History levothyroxine 200 mcg tablet 200 mcg PO DAILYBB 10/19/21 10/19/21 History nystatin 100,000 unit/gram topical 1 applic TOPICAL BID PRN 10/19/21 10/19/21 History powder nystatin 100,000 unit/mL oral 10 ml BUCCAL BID 10/19/21 10/19/21 History suspension potassium chloride 10 mEq 10 meq PO UD 10/19/21 10/19/21 History tablet,extended release prednisone 5 mg tablet 5 mg PO DAILY 10/19/21 10/19/21 History warfarin 2 mg tablet 1 mg PO . CURRENTLY ON HOLD 10/19/21 10/19/21 History Patient History Medical History Anemia recent hospitalization at [facility] 2 weeks ago Anticoagulated on Coumadin Anxiety Asthma, moderate persistent not well controlled, frequent nebulizer use Chronic diastolic CHF (congestive heart failure) follows with Dr. Benjamin CKD (chronic kidney disease), stage III follows [address] Dr. Hernandez COPD (chronic obstructive pulmonary disease) not well controlled Dyslipidemia GERD (gastroesophageal reflux disease) GI bleed recent hospitalization at [facility] > 1 unit blood Gout Hard of hearing bilat aides Heart disease "nonobstructive disease per cath 2012" Hiatal hernia History of breast cancer x2 > > no chemo just tamxifen for prison use, no surgeries Hypothyroidism (acquired) "s/p thyroidectomy and radioiodine therapy for cancer treatment" Hysterectomy (02/22/13) IBS (irritable bowel syndrome) Labile hypertension Osteoporosis (02/22/13) PAF (paroxysmal atrial fibrillation) hx of 10 yrs ago > no longer on ASA or Coumadin as of 2 weeks ago 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 Father , Passed age 50 of [place] No problems noted. Brother Lung fibrosis Brother , Passed age 63 of allergic reaction to antibiotics No problems noted. Sister , Passed age 83 of "electrolyte disturbances" DCIS (ductal carcinoma in situ) Sister , Passed age 84 from post surgical complications No problems noted. Sister No problems noted. Daughter No problems noted. Daughter No problems noted. Son No problems noted. 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 Relatively frail in appearance. She is alert and oriented with good cognitive function. Constitutional: WD/WN, vitals as above no acute distress and not ill appearing Eyes: PERRL, conjunctivae normal, anicteric sclerae EOM intact bilaterally ENMT: external ear and nose normal, oropharynx normal Ears: no hearing impairment Neck: trachea midline, no thyromegaly Respiratory: normal respiratory effort; no respiratory distress and does not use accessory muscles Cardiovascular: Rate/Rhythm: regular rate and regular rhythm Gastrointestinal (Abdomen): Soft. Nontender. No palpable abnormalities Skin: no rashes, warm and dry Psychiatric: Orientation: alert, oriented x 3 and cooperative Results & Data ([facility]) Vital Signs (Past 12 Hours) Vital Signs Temp Pulse Pulse Pulse Resp BP Pulse Ox 10/29/21 11:18 77 10/29/21 11:00 36.6 C 77 18 145/83 H 95 10/29/21 10:43 72 16 97 10/29/21 07:11 88 16 97 10/29/21 07:07 36.6 C 74 18 134/74 99 10/29/21 04:08 36.7 C 75 18 147/74 H 99 PG Care Time/CCT Total # of Minutes Spent Total Time Spent with Patient: Total time spent is greater than 50% in coordination of care (as documented) at patient's floor/unit and/or counseling patient: Coding Level of Care Code 32020 Initial Inpt Care Lvl 3 Diagnoses Colonic mass K63.89 GI bleeding K92.2 DVT, bilateral lower limbs I82.403 Bilateral pulmonary embolism I26.99 CAD (coronary artery disease) I25.10 Diastolic heart failure secondary to hypertension I11.0; I50.30 CKD (chronic kidney disease), stage III N18.32 Chronic kidney disease stage 3 subtype: stage 3b (GFR 30-44) Anemia D64.9 (1) CKD (chronic kidney disease), stage III Chronic kidney disease stage 3 subtype: stage 3b (GFR 30-44) Qualified Code(s): N18.32 - Chronic kidney disease, stage 3b
--- NOTE | 2021-10-29 13:59 | Cardiology Progress Note ---
Date of Service October 29, 2021 Assessment & Plan (1) Preop cardiovascular exam: (2) Chronic diastolic (congestive) heart failure: (3) Bilateral pulmonary embolism: (4) Asthma, moderate persistent: Plan: Patient is an 89-year-old female very complex history as outlined with difficulties with the current lower GI bleeding with mandated anticoagulation due to bilateral DVT and pulmonary emboli in September 2021. Patient now status post endoscopy studies demonstrating sigmoid mass as source of bleeding. Blood pressure is mildly labile but otherwise patient compensated. Discussed findings in detail with the patient and family with multiple questions answered Noted optimal aggressive management would include IVC filter, discontinuation of anticoagulation and proceeding to surgery to prevent progression to bowel obstruction Would need surgical evaluation. No absolute contraindications from a cardiac standpoint at this point and patient has best compensated as she has been in several months, no congestive heart failure, renal function stable. Noted surgery and any intervention will be performed at elevated risk given age and brittle diastolic heart failure, renal insufficiency. Patient continues to contemplate further however patient exam in the past have opted for aggressive therapy. Current bowel findings not immediately life- threatening and patient and family not likely to withdraw other medical therapies. 10/29/2021 Appreciate surgical evaluation and plan. Patient to receive unit of red cells over the weekend. Will resume oral furosemide at reduced dose has not received since October 26 Agree with subcutaneous Lovenox prior to proceeding with IVC filter and and sigmoid surgery Admission and Anticipated Discharge Date Admission Date: October 20, 2021 Subjective Patient seen and examined, chart and telemetry reviewed. Patient examined this morning as well as after lunch following surgical consultation No acute complaints this morning no further bleeding. No dizziness or lightheadedness. No chest pain or shortness of breath no orthopnea. Review of Systems Review of Systems: All systems reviewed & are unremarkable except as noted in Subjective Physical Exam Constitutional: no acute distress Eyes: PERRL, conjunctivae normal, anicteric sclerae ENMT: external ear and nose normal, oropharynx normal Neck: trachea midline, no thyromegaly Respiratory: Auscultation: + wheezes (Minimal with lungs mostly clear) Cardiovascular: Rate/Rhythm: regular rate and regular rhythm Heart Sounds: + murmur (Grade 1/6 systolic) Vessels: + JVD Extremities: + edema Results & Data ([facility]) Vital Signs (Past 12 Hours) Vital Signs Temp Pulse Pulse Pulse Resp BP Pulse Ox 10/29/21 11:18 77 10/29/21 11:00 36.6 C 77 18 145/83 H 95 10/29/21 10:43 72 16 97 10/29/21 07:11 88 16 97 10/29/21 07:07 36.6 C 74 18 134/74 99 10/29/21 04:08 36.7 C 75 18 147/74 H 99 Laboratory Results Laboratory Results - last 24 hr 10/26/21 10/29/21 10/29/21 15:10 08:16 08:16 WBC RBC Hgb Hct MCV MCH MCHC RDW Std Deviation RDW Coeff of Chrissy Plt Count MPV PT 12.8 H INR 1.2 H Sodium 135 L Potassium 4.0 Chloride 100 Carbon Dioxide 29 Anion Gap 6 BUN 27 H Creatinine 1.25 H Est Cr Clr Drug Dosing 25.3 Est GFR ( Amer) 44.2 Est GFR (Non-Af Amer) 38.1 BUN/Creatinine Ratio 21.6 H Glucose 100 H Calcium 8.9 Crossmatch See Detail 10/29/21 08:16 WBC 11.67 H RBC 2.86 L Hgb 8.7 L Hct 26.6 L MCV 93.0 MCH 30.4 MCHC 32.7 RDW Std Deviation 55.2 H RDW Coeff of Chrissy 16.5 H Plt Count 532 H MPV 9.4 PT INR Sodium Potassium Chloride Carbon Dioxide Anion Gap BUN Creatinine Est Cr Clr Drug Dosing Est GFR ( Amer) Est GFR (Non-Af Amer) BUN/Creatinine Ratio Glucose Calcium Crossmatch Diagnostic Findings Laboratory Results - last 24 hr 10/26/21 10/29/21 10/29/21 15:10 08:16 08:16 WBC RBC Hgb Hct MCV MCH MCHC RDW Std Deviation RDW Coeff of Chrissy Plt Count MPV PT 12.8 H INR 1.2 H Sodium 135 L Potassium 4.0 Chloride 100 Carbon Dioxide 29 Anion Gap 6 BUN 27 H Creatinine 1.25 H Est Cr Clr Drug Dosing 25.3 Est GFR ( Amer) 44.2 Est GFR (Non-Af Amer) 38.1 BUN/Creatinine Ratio 21.6 H Glucose 100 H Calcium 8.9 Crossmatch See Detail 10/29/21 08:16 WBC 11.67 H RBC 2.86 L Hgb 8.7 L Hct 26.6 L MCV 93.0 MCH 30.4 MCHC 32.7 RDW Std Deviation 55.2 H RDW Coeff of Chrissy 16.5 H Plt Count 532 H MPV 9.4 PT INR Sodium Potassium Chloride Carbon Dioxide Anion Gap BUN Creatinine Est Cr Clr Drug Dosing Est GFR ( Amer) Est GFR (Non-Af Amer) BUN/Creatinine Ratio Glucose Calcium Crossmatch
[2021-10-29] MEDS: ACETAMINOPHEN 500 MG TAB PO PRN (14:14)
[2021-10-29] MEDS: ENOXAPARIN INJ 30 MG/0.3 ML SYR SQ SCH (17:28)
[2021-10-29] MEDS: FUROSEMIDE 20 MG TAB PO SCH (17:29)
--- NOTE | 2021-10-29 18:16 | Hospitalist Progress Note ---
Date of Service October 29, 2021 Assessment & Plan (1) Generalized weakness: Plan: Generalized weakness Likely multifactorial Complicated UTI: Multidrug-resistant Proteus on outpatient urine culture Traumatic RUE cellulitis Blood Cultures: Negative to date Outpatient Urine Cx from 10/18/21: Proteus mirabilis sensitive to cefepime, ciprofloxacin, gentamicin, meropenem, Zosyn, Bactrim. Resistant to ampicillin, Unasyn, cefazolin, cefoxitin, ceftriaxone. Stool for C. difficile negative Completed 5 day course of Zosyn>>Cipro--Completed course Continue Zosyn>>> transitioned to cefdinir for cellulitis Appreciate orthopedics input. No I&D needed as per Ortho. 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 Biopsied. Tattooed. Diverticulosis in the sigmoid colon. S/P EGD:Normal esophagus. Normal examined duodenum. Small hiatal hernia. No specimens collected. Pathology Pending Melena/Rectal Bleeding likely due to Colon mass Hold IV Heparin, Coumadin INR subtherapeutic : 1.2 Avoid anticoagulants Continue IV PPI Type and cross Transfuse as needed Monitor H&H Appreciate GI Input Appreciate Surgery Input Offered to transfer to Tertiary hospital given lack to availability of Vascular surgery till Monday and need for IVC filter placement given PE/DVT and bleeding issues. Patient/Family prefers not be transferred and would like to have the IVC filter placed at [facility] on Monday Vascular Surgery Consulted Planned for IVC filter placement and Laparoscopic resection of colon mass on Monday Right Upper Extremity Hematoma: RUE USD:Complex 15.2 x 3 x 3 cm right upper arm fluid collection. This favors a resolving hematoma, possibly intramuscular. Monitor H&H Consider reevaluation by Ortho if needed Chronic hypoxemic respiratory failure on home O2 Chronic diastolic heart failure Continue home diuretics as able Monitor volume status Appreciate Cardiology Input Resume home lasix at 60mg daily Diarrhea Stool for C. difficile negative Likely secondary to antibiotics On probiotics IV fluids as needed Hypokalemia Replace as needed Nonobstructive CAD/TIA Continue home meds 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 Supratherapeutic INR 3.5>>2.2>1.2 Held Coumadin due to GI Bleed Monitor INR Plan for IVC filter as anticoagulation Risks Vs Benefits discussed with patient/family given inability to restart anticoagulation currently and risk for clotting/bleeding Patient/Family understands and agrees with current management After further discussing with Patient/Family and consultants: Was started on Lovenox 30mg daily--If any recurrence of bleeding issues--will Stop all anticoagulation Hypertension Continue home meds Monitor Hyperlipidemia on statin Bronchial asthma Ongoing steroid Rx for last couple of months Breast cancer S/P surgery, tamoxifen on hold following recent confinement for PE DVT Follows with [facility] oncologist Thyroid cancer S/P surgery Post surgical hypothyroidism chronic, stable. Continue levothyroxine Abnormal LFTs CT ABD:The liver is homogeneous in attenuation on these limited noncontrast images. There is again cholelithiasis with no CT evidence for acute cholecystitis. Avoid hepatotoxic agents as able LFTs trending down DM II New Diagnosis H/O Prediabetes Likely worsened due to setoids HbA1C:6.8 No tight glycemic control needed given advanced age Monitor BGs off meds CKD Stage III Cr at baseline Monitor renal function Avoid nephrotoxic agents as able Chronic anemia Hb at baseline Continue Iron supplements Ambulatory dysfunction/functional disability Fall precautions PT/OT DVT Px: Coumadin--Held Re: GI Bleed IV Heparin--Held Re: GI Bleed SCDs Code Status Full Code Disposition PT/OT prior to discharge (2) Cellulitis of arm, right: (3) Supratherapeutic INR: (4) Acute UTI: Admission and Anticipated Discharge Date Admission Date: October 20, 2021 Subjective Patient is seen and examined at bedside Sitting in chair during my encounter No bleeding issues today Discussed with Surgery, Cardiology today Denies any chest pain, dyspnea, dizziness, nausea Family at bedside Review of Systems Review of Systems: All systems reviewed & are unremarkable except as noted in Subjective Physical Exam Physical Exam: Physical Exam: Vitals signs as noted above General Appearance:Moderately built and nourished, no apparent distress Head: normocephalic, Atraumatic Eyes: normal inspection, EOMI Neck: supple, Trachea midline Respiratory/Chest: Normal breath sounds, CTA, No accessory muscle use Cardiovascular: S1, S2, +murmur Abdomen/GI:Soft, Non tender, Bowel sounds present Extremities/Musculoskeletal:normal inspection, Trace edema, RUE swelling Neurologic/Psych:AAOX2, grossly no focal neurological deficits Skin: normal color, warm Results & Data Results & Data ([facility]) Vital Signs (Past 12 Hours) Vital Signs Temp Pulse Pulse Pulse Resp BP Pulse Ox 10/29/21 15:05 67 16 98 10/29/21 14:55 81 10/29/21 11:18 77 10/29/21 11:00 36.6 C 77 18 145/83 H 95 10/29/21 10:43 72 16 97 10/29/21 07:11 88 16 97 10/29/21 07:07 36.6 C 74 18 134/74 99 Laboratory Results Short CBC 10/29/21 Range/Units 08:16 WBC 11.67 H (4.8-10.8) K/uL Hgb 8.7 L (12.0-16.0) g/dL Hct 26.6 L (37-47) % Plt Count 532 H (130-400) K/uL BMP 10/29/21 08:16 Sodium 135 L Potassium 4.0 Chloride 100 Carbon Dioxide 29 BUN 27 H Creatinine 1.25 H Glucose 100 H Calcium 8.9
[2021-10-29] MEDS: DICLOFENAC SOD 1% GEL 100 GM TUBE EXT PRN (19:35)
[2021-10-29] MEDS: ISOSORBIDE MONO EXTENDED REL 60 MG TABCR PO SCH (21:16)
[2021-10-29] MEDS: MONTELUKAST SODIUM 10 MG TABLET PO SCH (21:16)
[2021-10-29] MEDS: PANTOprazole 40 MG in SYRINGE 0 ML IV SCH (21:17)
[2021-10-29] MEDS: MELATONIN 3 MG TAB PO PRN (21:29)
--- NOTE | 2021-10-30 05:41 | Surgery Progress Note ---
Date of Service October 30, 2021 Assessment & Plan (1) GI bleeding: (2) Bilateral pulmonary embolism: (3) Colonic mass: Plan: Negative plan will be for surgical resection of colon mass early this week. We will attempt to coordinate patient's surgery with out of Dr. Marmolejo who will be placing an IVC filter due to history of PE Continue to follow serial labs We will discuss with Dr. Washington appropriate bowel prep prior to surgery Admission and Anticipated Discharge Date Admission Date: October 20, 2021 Subjective Patient denies any abdominal pain. She denies any nausea or vomiting. No shortness of breath reported. She does report some generalized fatigue Physical Exam Respiratory: normal respiratory effort; no respiratory distress and no labored breathing Gastrointestinal (Abdomen): Abdomen soft, nontender, nondistended. No pain noted with palpation Results & Data ([facility]) Vital Signs (Past 12 Hours) Vital Signs Temp Pulse Resp BP Pulse Ox 10/30/21 03:00 36.4 C L 73 20 128/63 98 10/29/21 23:00 36.4 C L 73 20 112/66 97 10/29/21 19:27 36.9 C 80 18 140/59 L 98 10/29/21 19:16 78 16 94 PG Care Time/CCT Total # of Minutes Spent Total Time Spent with Patient: Total time spent is greater than 50% in coordination of care (as documented) at patient's floor/unit and/or counseling patient: Coding Level of Care Code 31856 Subseq Hosp Care Lvl 1 Diagnoses GI bleeding K92.2 Bilateral pulmonary embolism I26.99 Colonic mass K63.89
[2021-10-30] MEDS: LEVOTHYROXINE SODIUM 200 MCG TABLET PO SCH (06:11)
[2021-10-30] MEDS: carvediloL 12.5 MG TAB PO SCH ×2 (06:11→16:13)
[2021-10-30] MEDS: ACETAMINOPHEN 500 MG TAB PO PRN (06:15)
[2021-10-30] MEDS: BUDESONIDE 0.5 MG/2 ML VIAL (PULMICORT) INH SCH ×2 (06:27→19:34)
[2021-10-30] MEDS: LEVALBUTEROL HCL 1.25 MG/3 ML NEB INH SCH ×4 (06:27→19:34)
[2021-10-30 06:56] LABS: Hematocrit (blood only) 26.7 % (37-47); Hemoglobin 8.3 g/dL (12.0-16.0); Mean Corpuscular Hemoglobin 28.7 pg (25-34); Mean Corpuscular Hgb Conc 31.1 g/dL (32-36); Mean Corpuscular Volume 92.4 fL (80-100); Mean Platelet Volume 8.9 fL (7.4-10.4); Platelet Count 479 K/uL (130-400); RDW Coefficient of Variation 16.7 % (11.5-14.5); RDW Standard Deviation 55.2 fL (36.4-46.3); Red Blood Count 2.89 M/uL (4.2-5.4); White Blood Count 11.23 K/uL (4.8-10.8)
[2021-10-30 07:14] LABS: INR 1.1 (0.9-1.1); Prothrombin Time 11.9 Seconds (9.0-12.0)
[2021-10-30 07:47] LABS: Calcium 8.9 mg/dl (8.5-10.1); Creatinine Clr Calc Pharmacy 28.1 ml/min; Est GFR (African American) 49.9 ml/min; Est GFR (Non-African American) 43.1 ml/min; Potassium 3.8 mmol/L (3.5-5.1)
[2021-10-30] MEDS: FLUTICASONE/VILANTEROL 200/25MCG 14 PUFFS/INHALER INH SCH (07:58)
[2021-10-30] MEDS: predniSONE 2.5 MG TAB PO SCH (07:59)
[2021-10-30] MEDS: FEXOFENADINE HCL 180 MG TAB PO SCH (07:59)
[2021-10-30] MEDS: POTASSIUM CHLORIDE 10 MEQ TABCR PO SCH ×2 (07:59→20:32)
[2021-10-30] MEDS: FUROSEMIDE 20 MG TAB PO SCH (07:59)
[2021-10-30] MEDS: FERROUS SULFATE 325 MG TAB PO SCH ×2 (07:59→20:32)
[2021-10-30] MEDS: ENOXAPARIN INJ 30 MG/0.3 ML SYR SQ SCH (07:59)
[2021-10-30] MEDS: PANTOprazole 40 MG in SYRINGE 0 ML IV SCH ×2 (08:00→20:35)
[2021-10-30] MEDS: LACTOBACILLUS ACIDOPHILUS 1 GM PACK PO SCH ×3 (08:00→16:13)
[2021-10-30] MEDS: ESCITALOPRAM OXALATE 10 MG TAB PO SCH (08:00)
[2021-10-30] MEDS: FAMOTIDINE 20 MG TAB PO SCH (08:00)
[2021-10-30] MEDS: AZELASTINE HCL 0.1% NASAL 200 SPRAYS/27,400 MCG BTL SCH ×2 (08:01→20:29)
[2021-10-30] MEDS: NYSTATIN SUSP 500,000 U/5 ML UDC BUCCAL SCH ×2 (08:01→20:33)
[2021-10-30] MEDS: TRIAMCINOLONE ACET NASAL SPRAY 10.8ML BTL SCH ×2 (08:02→20:30)
[2021-10-30] MEDS: SUCRALFATE 1 GM/10 ML UDC PO SCH ×3 (08:02→20:30)
[2021-10-30] MEDS ORDERED: SODIUM CHLORIDE 0.9% 250 ML IV PRN (09:17)
[2021-10-30] MEDS ORDERED: FUROSEMIDE INJ 20 MG/2 ML VIAL IV ONE ×2 (09:26→16:05)
--- NOTE | 2021-10-30 17:42 | Hospitalist Progress Note ---
Date of Service October 30, 2021 Assessment & Plan (1) Generalized weakness: Plan: Generalized weakness Likely multifactorial Complicated UTI: Multidrug-resistant Proteus on outpatient urine culture Traumatic RUE cellulitis Blood Cultures: Negative to date Outpatient Urine Cx from 10/18/21: Proteus mirabilis sensitive to cefepime, ciprofloxacin, gentamicin, meropenem, Zosyn, Bactrim. Resistant to ampicillin, Unasyn, cefazolin, cefoxitin, ceftriaxone. Stool for C. difficile negative Completed 5 day course of Zosyn>>Cipro--Completed course Continue Zosyn>>> transitioned to cefdinir for cellulitis>>Completed the course Appreciate orthopedics input. No I&D needed as per Ortho. 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 Biopsied. Tattooed. Diverticulosis in the sigmoid colon. S/P EGD:Normal esophagus. Normal examined duodenum. Small hiatal hernia. No specimens collected. Pathology Pending Melena/Rectal Bleeding likely due to Colon mass Hold IV Heparin, Coumadin INR subtherapeutic : 1.1 Avoid anticoagulants Continue IV PPI Type and cross Transfuse as needed Monitor H&H Appreciate GI Input Appreciate Surgery Input Offered to transfer to Tertiary hospital given lack to availability of Vascular surgery till Monday and need for IVC filter placement given PE/DVT and bleeding issues. Patient/Family prefers not be transferred and would like to have the IVC filter placed at [facility] on Monday Vascular Surgery Consulted Planned for IVC filter placement and Laparoscopic resection of colon mass on Monday Will Transfuse 1 unit PRBC to optimize for surgery Right Upper Extremity Hematoma: RUE USD:Complex 15.2 x 3 x 3 cm right upper arm fluid collection. This favors a resolving hematoma, possibly intramuscular. Monitor H&H Consider reevaluation by Ortho if needed Chronic hypoxemic respiratory failure on home O2 Chronic diastolic heart failure Continue home diuretics as able Monitor volume status Appreciate Cardiology Input Resumed home lasix at 60mg daily Diarrhea Stool for C. difficile negative Likely secondary to antibiotics On probiotics IV fluids as needed Hypokalemia Replace as needed Nonobstructive CAD/TIA Continue home meds 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 Supratherapeutic INR 3.5>>2.2>1.1 Held Coumadin due to GI Bleed Monitor INR Plan for IVC filter as anticoagulation Risks Vs Benefits discussed with patient/family given inability to restart anticoagulation currently and risk for clotting/bleeding Patient/Family understands and agrees with current management After further discussing with Patient/Family and consultants: Was started on Lovenox 30mg daily--If any recurrence of bleeding issues--will Stop all anticoagulation Hypertension Continue home meds Monitor Hyperlipidemia on statin Bronchial asthma Ongoing steroid Rx for last couple of months Breast cancer S/P surgery, tamoxifen on hold following recent confinement for PE DVT Follows with [facility] oncologist Thyroid cancer S/P surgery Post surgical hypothyroidism chronic, stable. Continue levothyroxine Abnormal LFTs CT ABD:The liver is homogeneous in attenuation on these limited noncontrast images. There is again cholelithiasis with no CT evidence for acute cholecystitis. Avoid hepatotoxic agents as able LFTs trending down DM II New Diagnosis H/O Prediabetes Likely worsened due to setoids HbA1C:6.8 No tight glycemic control needed given advanced age Monitor BGs off meds CKD Stage III Cr at baseline Monitor renal function Avoid nephrotoxic agents as able Chronic anemia Hb at baseline Continue Iron supplements Ambulatory dysfunction/functional disability Fall precautions PT/OT DVT Px: Coumadin--Held Re: GI Bleed IV Heparin--Held Re: GI Bleed SCDs Code Status Full Code Disposition PT/OT prior to discharge (2) Cellulitis of arm, right: (3) Supratherapeutic INR: (4) Acute UTI: Admission and Anticipated Discharge Date Admission Date: October 20, 2021 Subjective Patient is seen and examined at bedside Feeling tired Getting blood transfusion during my encounter Denies any bleeding issues today Family at bedside Offers no other complaints Denies any chest pain, dyspnea, dizziness, nausea Review of Systems Review of Systems: All systems reviewed & are unremarkable except as noted in Subjective Physical Exam Physical Exam: Physical Exam: Vitals signs as noted above General Appearance:Moderately built and nourished, no apparent distress Head: normocephalic, Atraumatic Eyes: normal inspection, EOMI Neck: supple, Trachea midline Respiratory/Chest: Normal breath sounds, CTA, No accessory muscle use Cardiovascular: S1, S2, +murmur Abdomen/GI:Soft, Non tender, Bowel sounds present Extremities/Musculoskeletal:normal inspection, Trace edema, RUE swelling Neurologic/Psych:AAOX2, grossly no focal neurological deficits Skin: normal color, warm Results & Data Results & Data ([facility]) Vital Signs (Past 12 Hours) Vital Signs Temp Pulse Pulse Pulse Resp BP BP 10/30/21 17:20 80 10/30/21 16:06 36.6 C 75 16 128/95 10/30/21 15:43 36.6 C 72 16 128/95 10/30/21 14:54 83 16 10/30/21 14:43 37 C 83 18 168/88 H 10/30/21 13:43 36.6 C 81 16 144/58 H 10/30/21 12:43 36.6 C 82 16 156/67 H 10/30/21 12:13 36.6 C 82 16 124/69 10/30/21 11:58 36.8 C 79 18 130/80 10/30/21 11:34 36.7 C 74 18 150/76 H 10/30/21 11:16 36.7 C 74 20 150/76 H 10/30/21 11:10 74 16 10/30/21 07:48 36.4 C L 74 20 146/71 H 10/30/21 07:28 76 10/30/21 06:28 62 16 Pulse Ox 10/30/21 17:20 10/30/21 16:06 98 10/30/21 15:43 97 10/30/21 14:54 97 10/30/21 14:43 87 L 10/30/21 13:43 99 10/30/21 12:43 98 10/30/21 12:13 97 10/30/21 11:58 99 10/30/21 11:34 98 10/30/21 11:16 97 10/30/21 11:10 97 10/30/21 07:48 96 10/30/21 07:28 10/30/21 06:28 98 Laboratory Results Short CBC 10/30/21 Range/Units 06:31 WBC 11.23 H (4.8-10.8) K/uL Hgb 8.3 L (12.0-16.0) g/dL Hct 26.7 L (37-47) % Plt Count 479 H (130-400) K/uL BMP 10/30/21 06:33 Sodium 136 Potassium 3.8 Chloride 99 Carbon Dioxide 31 BUN 26 H Creatinine 1.13 Glucose 97 Calcium 8.9
[2021-10-30] MEDS: ACETAMINOPHEN 1000 MG/100 ML IV IV PRN (20:20)
[2021-10-30] MEDS: NYSTATIN POWDER 15GM BTL EXT PRN (20:29)
[2021-10-30] MEDS: DICLOFENAC SOD 1% GEL 100 GM TUBE EXT PRN (20:29)
[2021-10-30] MEDS: MONTELUKAST SODIUM 10 MG TABLET PO SCH (20:31)
[2021-10-30] MEDS: ISOSORBIDE MONO EXTENDED REL 60 MG TABCR PO SCH (20:32)
[2021-10-31] MEDS: carvediloL 12.5 MG TAB PO SCH ×2 (05:02→16:59)
[2021-10-31] MEDS: LEVOTHYROXINE SODIUM 200 MCG TABLET PO SCH (05:02)
--- NOTE | 2021-10-31 06:27 | Surgery Progress Note ---
Date of Service October 31, 2021 Assessment & Plan (1) GI bleeding: (2) Bilateral pulmonary embolism: (3) Colonic mass: Plan: Tentative plan will be for surgical resection of colon mass early this week with attempt to coordinate patient's surgery with vascular surgery as patient will need an IVC filter due to history of PE Initiation of bowel prep will depend on timing of surgery Check a.m. labs when available As above. Patient with no new complaints. Was unable to tolerate the entire transfusion yesterday because of poor IV access. Now has a midline. Recommend transfuse additional 1 packed unit today. Unclear if vascular surgery will be placing her filter tomorrow or Monday. My plan is laparoscopic sigmoid colon resection late morning Monday. Discussed with daughter yesterday. Agrees with the plan. Admission and Anticipated Discharge Date Admission Date: October 20, 2021 Subjective Patient is resting comfortably in bed. No abdominal pain reported Physical Exam Gastrointestinal (Abdomen): Abdomen is soft and nontender. Results & Data ([facility]) Vital Signs (Past 12 Hours) Vital Signs Temp Pulse Pulse Resp BP Pulse Ox 10/31/21 03:07 36.5 C 72 18 112/67 98 10/30/21 22:47 36.8 C 78 18 139/70 96 10/30/21 22:16 77 10/30/21 19:34 76 16 97 10/30/21 19:23 36.7 C 71 18 117/75 97 PG Care Time/CCT Total # of Minutes Spent Total Time Spent with Patient: Total time spent is greater than 50% in coordination of care (as documented) at patient's floor/unit and/or counseling patient: Coding Level of Care Code 18961 Subseq Hosp Care Lvl 2 Diagnoses GI bleeding K92.2 Bilateral pulmonary embolism I26.99 Colonic mass K63.89
[2021-10-31] MEDS: BUDESONIDE 0.5 MG/2 ML VIAL (PULMICORT) INH SCH ×2 (07:05→18:58)
[2021-10-31] MEDS: LEVALBUTEROL HCL 1.25 MG/3 ML NEB INH SCH ×4 (07:05→18:58)
[2021-10-31 07:25] LABS: Hematocrit (blood only) 27.7 % (37-47); Hemoglobin 8.9 g/dL (12.0-16.0); Mean Corpuscular Hemoglobin 29.5 pg (25-34); Mean Corpuscular Hgb Conc 32.1 g/dL (32-36); Mean Corpuscular Volume 91.7 fL (80-100); Mean Platelet Volume 9.5 fL (7.4-10.4); Platelet Count 441 K/uL (130-400); RDW Coefficient of Variation 16.8 % (11.5-14.5); RDW Standard Deviation 55.1 fL (36.4-46.3); Red Blood Count 3.02 M/uL (4.2-5.4); White Blood Count 11.06 K/uL (4.8-10.8)
[2021-10-31 07:57] LABS: BUN Creatinine Ratio 25.7 (10-20); Calcium 8.6 mg/dl (8.5-10.1); Creatinine Clr Calc Pharmacy 28.6 ml/min; Est GFR (African American) 52.1 ml/min; Potassium 3.7 mmol/L (3.5-5.1)
[2021-10-31] MEDS: SUCRALFATE 1 GM/10 ML UDC PO SCH ×3 (08:29→20:02)
[2021-10-31] MEDS: FEXOFENADINE HCL 180 MG TAB PO SCH (08:30)
[2021-10-31] MEDS: PANTOprazole 40 MG in SYRINGE 0 ML IV SCH ×2 (08:30→20:47)
[2021-10-31] MEDS: FLUTICASONE/VILANTEROL 200/25MCG 14 PUFFS/INHALER INH SCH (08:30)
[2021-10-31] MEDS: FAMOTIDINE 20 MG TAB PO SCH (08:31)
[2021-10-31] MEDS: FERROUS SULFATE 325 MG TAB PO SCH ×2 (08:31→20:02)
[2021-10-31] MEDS: FUROSEMIDE 20 MG TAB PO SCH (08:31)
[2021-10-31] MEDS: ESCITALOPRAM OXALATE 10 MG TAB PO SCH (08:32)
[2021-10-31] MEDS: POTASSIUM CHLORIDE 10 MEQ TABCR PO SCH ×2 (08:32→20:02)
[2021-10-31] MEDS: ENOXAPARIN INJ 30 MG/0.3 ML SYR SQ SCH (08:32)
[2021-10-31] MEDS: predniSONE 2.5 MG TAB PO SCH (08:32)
[2021-10-31] MEDS: LACTOBACILLUS ACIDOPHILUS 1 GM PACK PO SCH ×3 (08:33→16:59)
[2021-10-31] MEDS: DICLOFENAC SOD 1% GEL 100 GM TUBE EXT PRN (08:34)
[2021-10-31] MEDS: AZELASTINE HCL 0.1% NASAL 200 SPRAYS/27,400 MCG BTL SCH ×2 (08:34→19:54)
[2021-10-31] MEDS: TRIAMCINOLONE ACET NASAL SPRAY 10.8ML BTL SCH ×2 (08:35→20:03)
--- NOTE | 2021-10-31 16:01 | Hospitalist Progress Note ---
Date of Service October 31, 2021 Assessment & Plan (1) Generalized weakness: Plan: Generalized weakness Likely multifactorial Complicated UTI: Multidrug-resistant Proteus on outpatient urine culture Traumatic RUE cellulitis Blood Cultures: Negative to date Outpatient Urine Cx from 10/18/21: Proteus mirabilis sensitive to cefepime, ciprofloxacin, gentamicin, meropenem, Zosyn, Bactrim. Resistant to ampicillin, Unasyn, cefazolin, cefoxitin, ceftriaxone. Stool for C. difficile negative Completed 5 day course of Zosyn>>Cipro--Completed course Continue Zosyn>>> transitioned to cefdinir for cellulitis>>Completed the course Appreciate orthopedics input. No I&D needed as per Ortho. 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 Biopsied. Tattooed. Diverticulosis in the sigmoid colon. S/P EGD:Normal esophagus. Normal examined duodenum. Small hiatal hernia. No specimens collected. Pathology Pending Melena/Rectal Bleeding likely due to Colon mass Hold IV Heparin, Coumadin INR subtherapeutic : 1.1 Avoid anticoagulants Continue IV PPI Type and cross Transfuse as needed Monitor H&H Appreciate GI Input Appreciate Surgery Input Offered to transfer to Tertiary hospital given lack to availability of Vascular surgery till Monday and need for IVC filter placement given PE/DVT and bleeding issues. Patient/Family prefers not be transferred and would like to have the IVC filter placed at [facility] on Monday Vascular Surgery Consulted Planned for IVC filter placement and Laparoscopic resection of colon mass Likely to have IVC filter placement tomorrow Right Upper Extremity Hematoma: RUE USD:Complex 15.2 x 3 x 3 cm right upper arm fluid collection. This favors a resolving hematoma, possibly intramuscular. Monitor H&H Consider reevaluation by Ortho if needed Chronic hypoxemic respiratory failure on home O2 Chronic diastolic heart failure Continue home diuretics as able Monitor volume status Appreciate Cardiology Input Resumed home lasix at 60mg daily Diarrhea Stool for C. difficile negative Likely secondary to antibiotics On probiotics IV fluids as needed Hypokalemia Replace as needed Nonobstructive CAD/TIA Continue home meds 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 Supratherapeutic INR 3.5>>2.2>1.1 Held Coumadin due to GI Bleed Monitor INR Plan for IVC filter as anticoagulation Risks Vs Benefits discussed with patient/family given inability to restart anticoagulation currently and risk for clotting/bleeding Patient/Family understands and agrees with current management After further discussing with Patient/Family and consultants: Was started on Lovenox 30mg daily--If any recurrence of bleeding issues--will Stop all anticoagulation Hypertension Continue home meds Monitor Hyperlipidemia on statin Bronchial asthma Ongoing steroid Rx for last couple of months Breast cancer S/P surgery, tamoxifen on hold following recent confinement for PE DVT Follows with [facility] oncologist Thyroid cancer S/P surgery Post surgical hypothyroidism chronic, stable. Continue levothyroxine Abnormal LFTs CT ABD:The liver is homogeneous in attenuation on these limited noncontrast images. There is again cholelithiasis with no CT evidence for acute cholecystitis. Avoid hepatotoxic agents as able LFTs trending down DM II New Diagnosis H/O Prediabetes Likely worsened due to setoids HbA1C:6.8 No tight glycemic control needed given advanced age Monitor BGs off meds CKD Stage III Cr at baseline Monitor renal function Avoid nephrotoxic agents as able Acute on Chronic anemia Multifactorial: CKD, Acute blood loss anemia, Iron deficeicny Hb at baseline S/P 1 unit PRBCs Continue Iron supplements Ambulatory dysfunction/functional disability Fall precautions PT/OT DVT Px: Coumadin--Held Re: GI Bleed IV Heparin--Held Re: GI Bleed SCDs Code Status Full Code Disposition PT/OT prior to discharge (2) Cellulitis of arm, right: (3) Supratherapeutic INR: (4) Acute UTI: Admission and Anticipated Discharge Date Admission Date: October 20, 2021 Subjective Patient is seen and examined at bedside States feeling well today No new complaints Plan for IVC filter placement tomorrow [facility] after midnight Discussed with patient's family at bedside Denies any chest pain, dyspnea, dizziness, nausea Review of Systems Review of Systems: All systems reviewed & are unremarkable except as noted in Subjective Physical Exam Physical Exam: Physical Exam: Vitals signs as noted above General Appearance:Moderately built and nourished, no apparent distress Head: normocephalic, Atraumatic Eyes: normal inspection, EOMI Neck: supple, Trachea midline Respiratory/Chest: Normal breath sounds, CTA, No accessory muscle use Cardiovascular: S1, S2, +murmur Abdomen/GI:Soft, Non tender, Bowel sounds present Extremities/Musculoskeletal:normal inspection, Trace edema, RUE swelling Neurologic/Psych:AAOX2, grossly no focal neurological deficits Skin: normal color, warm Results & Data Results & Data ([facility]) Vital Signs (Past 12 Hours) Vital Signs Temp Pulse Pulse Pulse Resp BP Pulse Ox 10/31/21 15:31 36.9 C 86 19 155/74 H 98 10/31/21 15:23 80 10/31/21 14:15 77 18 97 10/31/21 10:55 67 18 93 10/31/21 07:29 74 10/31/21 07:11 36.6 C 73 18 115/69 97 10/31/21 07:05 73 16 97 Laboratory Results Short CBC 10/31/21 Range/Units 06:30 WBC 11.06 H (4.8-10.8) K/uL Hgb 8.9 L (12.0-16.0) g/dL Hct 27.7 L (37-47) % Plt Count 441 H (130-400) K/uL BMP 10/31/21 06:30 Sodium 137 Potassium 3.7 Chloride 100 Carbon Dioxide 32 BUN 28 H Creatinine 1.09 Glucose 86 Calcium 8.6
[2021-10-31] MEDS: ACETAMINOPHEN 1000 MG/100 ML IV IV PRN (19:51)
[2021-10-31] MEDS: MONTELUKAST SODIUM 10 MG TABLET PO SCH (19:59)
[2021-10-31] MEDS: ISOSORBIDE MONO EXTENDED REL 60 MG TABCR PO SCH (20:47)
[2021-10-31] MEDS: MELATONIN 3 MG TAB PO PRN (21:11)
[2021-11-01] MEDS: carvediloL 12.5 MG TAB PO SCH ×2 (06:00→17:03)
[2021-11-01] MEDS: LEVOTHYROXINE SODIUM 200 MCG TABLET PO SCH (06:01)
[2021-11-01] MEDS: ACETAMINOPHEN 500 MG TAB PO PRN (06:14)
[2021-11-01] MEDS: BUDESONIDE 0.5 MG/2 ML VIAL (PULMICORT) INH SCH ×2 (07:09→19:50)
[2021-11-01] MEDS: LEVALBUTEROL HCL 1.25 MG/3 ML NEB INH SCH ×4 (07:09→19:52)
[2021-11-01 07:49] LABS: Hematocrit (blood only) 26.9 % (37-47); Hemoglobin 8.6 g/dL (12.0-16.0); Mean Corpuscular Hemoglobin 29.9 pg (25-34); Mean Corpuscular Volume 93.4 fL (80-100); Mean Platelet Volume 9.2 fL (7.4-10.4); Platelet Count 388 K/uL (130-400); RDW Coefficient of Variation 16.5 % (11.5-14.5); RDW Standard Deviation 55.9 fL (36.4-46.3); Red Blood Count 2.88 M/uL (4.2-5.4); White Blood Count 11.97 K/uL (4.8-10.8)
[2021-11-01] MEDS: NYSTATIN POWDER 15GM BTL EXT PRN (07:49)
[2021-11-01] MEDS: AZELASTINE HCL 0.1% NASAL 200 SPRAYS/27,400 MCG BTL SCH ×2 (08:00→20:16)
[2021-11-01] MEDS: predniSONE 2.5 MG TAB PO SCH (08:00)
[2021-11-01] MEDS: FLUTICASONE/VILANTEROL 200/25MCG 14 PUFFS/INHALER INH SCH (08:00)
[2021-11-01] MEDS: PANTOprazole 40 MG in SYRINGE 0 ML IV SCH ×2 (08:01→20:15)
[2021-11-01] MEDS: FERROUS SULFATE 325 MG TAB PO SCH ×2 (08:02→20:16)
[2021-11-01] MEDS: POTASSIUM CHLORIDE 10 MEQ TABCR PO SCH ×2 (08:02→20:15)
[2021-11-01] MEDS: ESCITALOPRAM OXALATE 10 MG TAB PO SCH (08:03)
[2021-11-01] MEDS: FAMOTIDINE 20 MG TAB PO SCH (08:03)
[2021-11-01] MEDS: SUCRALFATE 1 GM/10 ML UDC PO SCH ×3 (08:04→22:23)
[2021-11-01] MEDS: TRIAMCINOLONE ACET NASAL SPRAY 10.8ML BTL SCH ×2 (08:05→22:23)
[2021-11-01] MEDS: LACTOBACILLUS ACIDOPHILUS 1 GM PACK PO SCH ×4 (08:06→17:03)
[2021-11-01] MEDS: FEXOFENADINE HCL 180 MG TAB PO SCH (08:13)
[2021-11-01 08:18] LABS: INR 1.1 (0.9-1.1); Prothrombin Time 11.4 Seconds (9.0-12.0)
[2021-11-01 08:32] LABS: BUN Creatinine Ratio 30.3 (10-20); Calcium 8.7 mg/dl (8.5-10.1); Creatinine Clr Calc Pharmacy 31.9 ml/min; Est GFR (African American) 58.6 ml/min; Est GFR (Non-African American) 50.5 ml/min; Potassium 3.7 mmol/L (3.5-5.1)
[2021-11-01] MEDS ORDERED: SODIUM CHLORIDE 0.9% 250 ML IV PRN ×2 (09:29→10:50)
[2021-11-01] MEDS ORDERED: POTASSIUM CHLORIDE CRTAB 20 MEQ TABCR PO ONE (09:35)
[2021-11-01] MEDS ORDERED: ENOXAPARIN INJ 30 MG/0.3 ML SYR SQ ONE (09:45)
[2021-11-01] MEDS ORDERED: POLYETHYLENE (MIRALAX) 17 GM PACK PO STA ×2 (09:45→18:14)
[2021-11-01] MEDS ORDERED: FUROSEMIDE 20 MG TAB PO ONE (10:00)
--- NOTE | 2021-11-01 10:03 | Surgery Progress Note ---
Date of Service November 01, 2021 Assessment & Plan (1) Colonic mass: Plan: Had a long discussion with Dr. Yung as well as daughter at bedside. We rediscussed that she is an extremely high surgical risk. We discussed her options once again. We will give her an additional 1 unit of packed red blood cells today. Spoke with Vivi Marmolejo's PA. They are planning inferior vena cava filter to be placed tomorrow under conscious sedation followed by my colonic resection. We will perform bowel prep today as well. I answered all her questions. Plan is for laparoscopic sigmoid colon resection tomorrow. They agree with the plan. (2) Anemia: (3) Chronic diastolic (congestive) heart failure: (4) CAD (coronary artery disease): Admission and Anticipated Discharge Date Admission Date: October 20, 2021 Physical Exam Physical Exam: alert/oriented. daughter at bedside. no new complaints. Gastrointestinal (Abdomen): abd: soft. nt. +bs's. Results & Data ([facility]) Vital Signs (Past 12 Hours) Vital Signs Temp Pulse Pulse Pulse Resp BP Pulse Ox 11/01/21 07:10 78 18 97 11/01/21 02:40 36.5 C 81 20 130/72 95 11/01/21 00:07 85 10/31/21 22:43 36.7 C 86 16 137/69 96 PG Care Time/CCT Total # of Minutes Spent Total Time Spent with Patient: Total time spent is greater than 50% in coordination of care (as documented) at patient's floor/unit and/or counseling patient: Coding Level of Care Code 17215 Subseq Hosp Care Lvl 3 Diagnoses Colonic mass K63.89 Anemia D64.9 Chronic diastolic (congestive) heart failure I50.32 CAD (coronary artery disease) I25.10
[2021-11-01] MEDS ORDERED: FUROSEMIDE INJ 20 MG/2 ML VIAL IV SCH (10:30)
--- NOTE | 2021-11-01 10:53 | Consultation ---
Date of Consultation November 01, 2021 Assessment & Plan (1) DVT, bilateral lower limbs: Pt with acute DVT and bleeding from colon mass. Recommend IVC filter insertion, to be done in OR tomorrow by Dr Kelly. Procedure, risks, benefits, and alternatives discussed with pt and daughter at Dr Kelly's request. Pt/daughter (POA) consent to IVC filter placement. History of Present Illness Reason for Consultation: DVT, colon mass Attending Physician: Jesse Pruett MD History of Present Illness 89 yo f with hx of CKD, TIA, breast ca, anxiety, gout, GERD, PAF, hypothyroidism, HTN, CHF, CAD, asthma, recent DVT/PE, admitted with general weakness and found to have GI bleed from colon mass, seen in consultation today for IVC filter insertion. Pt was started on AC a few weeks ago after discovery of acute BLE DVT and PE, and was d/c home. She then presented to [facility] ED with generalized weakness last week and was found to have GI bleed. Endoscopy revealed colon mass. Her AC was stopped d/t bleeding, and pt was advised to go to [facility] for IVC filter insertion d/t Dr Kelly being unavailable, however, pt/family refused transfer. She was then restarted on low dose lovenox. She is scheduled for colon resection in OR tomorrow by Dr Washington. Pt herself admits general malaise and generalized extremity pain. Daughter present today as well, states her mother cannot have anything tight on her legs d/t discomfort. Admits edema of BLE. Pt denies LOYD, fever, chest pain, SOB, abd pain, N/V, other complaints. Daughter's main concern today is the location of the BP cuffs for surgery tomorrow. Pt has a restricted limb band on R arm d/t a prior cellulitis in R upper arm which is healing. No hx of mastectomy or lymph node removal. 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 sulfamethoxazole Allergy Mild RASH Verified 10/28/21 10:26 trimethoprim Allergy Mild RASH Verified 10/28/21 10:26 amlodipine Allergy legs swell Verified 10/28/21 10:26 severe azithromycin Allergy Unknown Verified 10/28/21 10:26 ipratropium Allergy Anaphylaxis Verified 10/28/21 10:26 Sulfa (Sulfonamide Allergy Difficulty Verified 10/28/21 10:26 Antibiotics) Breathing doxycycline AdvReac Unknown GI upset Verified 10/28/21 10:26 cefuroxime [From Ceftin] AdvReac Diarrhea Verified 10/28/21 10:26 narcotic in general AdvReac Severe Hallucinati Uncoded 10/28/21 10:26 ng Home Medications Medication Instructions Recorded Confirmed Type allopurinol 100 mg tablet 200 mg PO QAM 02/19/19 10/19/21 History atorvastatin 40 mg tablet 40 mg PO PM 02/19/19 10/19/21 History azelastine 137 mcg (0.1 %) nasal 1 spray INTRANASAL BID 02/19/19 10/19/21 History spray aerosol budesonide 0.5 mg/2 mL suspension 0.5 mg INHALATION BID 02/19/19 10/19/21 History for nebulization carvedilol 25 mg tablet (Coreg) 12.5 mg PO BID 02/19/19 10/19/21 History cholecalciferol (vitamin D3) 25 2,000 unit PO 3XWK 02/19/19 10/19/21 History mcg (1,000 unit) capsule (Vitamin D3) escitalopram oxalate 10 mg tablet 5 mg PO QAM 02/19/19 10/19/21 History (Lexapro) fexofenadine 180 mg tablet 180 mg PO QAM 02/19/19 10/19/21 History levalbuterol HCl 1.25 mg/3 mL 1.25 mg INHALATION QID 02/19/19 10/19/21 History solution for nebulization (Xopenex) montelukast 10 mg tablet 10 mg PO PM 02/19/19 10/19/21 History nitroglycerin 0.4 mg sublingual 0.4 mg BUCCAL .UD PRN 02/19/19 10/19/21 History tablet (Nitrostat) pantoprazole 40 mg tablet,delayed 40 mg PO BID 02/19/19 10/19/21 History release (Protonix) sodium chloride 0.65 % nasal spray 2 spray INTRANASAL QID PRN 02/19/19 10/19/21 History aerosol (Saline Nasal) spironolactone 25 mg tablet 12.5 mg PO QAM 02/19/19 10/19/21 History tamoxifen 20 mg tablet 20 mg PO . ON HOLD 02/19/19 10/19/21 History triamcinolone acetonide 55 mcg 1 spray INTRANASAL BID 02/19/19 10/19/21 History nasal spray aerosol (Nasacort) isosorbide mononitrate 60 mg 60 mg PO HS 11/15/20 10/19/21 History tablet,extended release 24 hr levalbuterol tartrate 45 1 puff INHALATION Q4H PRN 11/15/20 10/19/21 History mcg/actuation aerosol inhaler acetaminophen 500 mg tablet 500 mg PO TID 05/19/21 10/19/21 History magnesium oxide 400 mg (241.3 mg 800 mg PO QAM 05/19/21 10/19/21 History magnesium) tablet sucralfate 100 mg/mL oral 10 ml PO TID 05/19/21 10/19/21 History suspension famotidine 20 mg tablet 20 mg PO BID 05/28/21 10/19/21 History benzonatate 100 mg capsule 100 mg PO TID PRN 09/24/21 10/19/21 History calcitriol 0.25 mcg capsule 0.25 mcg PO 3XWK 09/24/21 10/19/21 History clotrimazole-betamethasone 1 1 applic TOPICAL BID PRN 09/24/21 10/19/21 History %-0.05 % topical cream guaifenesin 600 mg tablet, 600 mg PO BID 09/24/21 10/19/21 History extended release 12 hr (Mucinex) hydralazine 10 mg tablet 10 mg PO TID PRN 09/24/21 10/19/21 History iron,carbonyl 65 mg-vitamin C 125 1 tab PO BID 09/24/21 10/19/21 History mg tablet,delayed release (Vitron-C) lidocaine HCl 2 % mucosal solution 1 applic TOPICAL DAILY PRN 09/24/21 10/19/21 History budesonide-formoterol HFA 160 2 puff INHALATION BID 10/19/21 10/19/21 History mcg-4.5 mcg/actuation aerosol inhaler (Symbicort) cefdinir 300 mg capsule 300 mg PO QAM 10/19/21 10/19/21 History docusate sodium 100 mg capsule 200 mg PO BID 10/19/21 10/19/21 History furosemide 40 mg tablet 60 mg PO UD 10/19/21 10/19/21 History levothyroxine 200 mcg tablet 200 mcg PO DAILYBB 10/19/21 10/19/21 History nystatin 100,000 unit/gram topical 1 applic TOPICAL BID PRN 10/19/21 10/19/21 History powder nystatin 100,000 unit/mL oral 10 ml BUCCAL BID 10/19/21 10/19/21 History suspension potassium chloride 10 mEq 10 meq PO UD 10/19/21 10/19/21 History tablet,extended release prednisone 5 mg tablet 5 mg PO DAILY 10/19/21 10/19/21 History warfarin 2 mg tablet 1 mg PO . CURRENTLY ON HOLD 10/19/21 10/19/21 History Patient History Medical History Anemia recent hospitalization at [facility] 2 weeks ago Anticoagulated on Coumadin Anxiety Asthma, moderate persistent not well controlled, frequent nebulizer use Chronic diastolic CHF (congestive heart failure) follows with Dr. Benjamin CKD (chronic kidney disease), stage III follows with Dr. 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, no surgeries Hypothyroidism (acquired) "s/p thyroidectomy and radioiodine therapy for cancer treatment" Hysterectomy (02/22/13) IBS (irritable bowel syndrome) Labile hypertension Osteoporosis (02/22/13) PAF (paroxysmal atrial fibrillation) hx of 10 yrs ago > no longer on ASA or Coumadin as of 2 weeks ago 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 Father , Passed age 50 of [place] No problems noted. Brother Lung fibrosis Brother , Passed age 63 of allergic reaction to antibiotics No problems noted. Sister , Passed age 83 of "electrolyte disturbances" DCIS (ductal carcinoma in situ) Sister , Passed age 84 from post surgical complications No problems noted. Sister No problems noted. Daughter No problems noted. Daughter No problems noted. Son No problems noted. 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) Other Information That Helps Us Care for You: No Feels Safe at Home: Yes Safety Concerns: Feels Safe At This Time caffeine: No during the past year weight has: remained stable Assistive Devices: Oxygen - Continuous and Walker Review of Systems Review of Systems: All systems reviewed & are unremarkable except as noted in HPI & below Physical Exam Constitutional: WD/WN, vitals as above + ill appearing (chronically), cooperative and comfortable; not in distress Neck: trachea midline Respiratory: normal respiratory effort Auscultation: lungs clear to auscultation bilaterally and + diminished lung sounds Cardiovascular: Rate/Rhythm: regular rate and regular rhythm Vessels: posterior tibial pulses present, dorsalis pedis pulses present and radial pulses present; + abnormal peripheral pulses Extremities: normal capillary refill and + edema Gastrointestinal (Abdomen): Inspection/Auscultation: abdomen normal to inspection and normal bowel sounds Percussion/Palpation: abdomen soft; abdomen nontender Musculoskeletal: no cyanosis or clubbing, extremities motor strength 5/5 Skin: + rash (faint pink/skin firmness RUE) and + ecchymosis (multiple small ecchymotic areas all extremities) Neurologic: moves all extremities and awake; no focal motor deficits and not confused Psychiatric: Orientation: alert and oriented x 3 Affect: + anxious affect Results & Data ([facility]) Vital Signs (Past 12 Hours) Vital Signs Temp Pulse Pulse Pulse Resp BP Pulse Ox 11/01/21 07:10 78 18 97 11/01/21 02:40 36.5 C 81 20 130/72 95 11/01/21 00:07 85 10/31/21 22:43 36.7 C 86 16 137/69 96
--- NOTE | 2021-11-01 18:39 | Hospitalist Progress Note ---
Date of Service November 01, 2021 Assessment & Plan (1) Generalized weakness: Plan: Generalized weakness Likely multifactorial Complicated UTI: Multidrug-resistant Proteus on outpatient urine culture Traumatic RUE cellulitis Blood Cultures: Negative to date Outpatient Urine Cx from 10/18/21: Proteus mirabilis sensitive to cefepime, ciprofloxacin, gentamicin, meropenem, Zosyn, Bactrim. Resistant to ampicillin, Unasyn, cefazolin, cefoxitin, ceftriaxone. Stool for C. difficile negative Completed 5 day course of Zosyn>>Cipro--Completed course Continue Zosyn>>> transitioned to cefdinir for cellulitis>>Completed the course Appreciate orthopedics input. No I&D needed as per Ortho. 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 Biopsied. Tattooed. Diverticulosis in the sigmoid colon. S/P EGD:Normal esophagus. Normal examined duodenum. Small hiatal hernia. No specimens collected. Pathology Pending Melena/Rectal Bleeding likely due to Colon mass Hold IV Heparin, Coumadin INR subtherapeutic : 1.1 Avoid anticoagulants Continue IV PPI Type and cross Transfuse as needed Monitor H&H Appreciate GI Input Appreciate Surgery Input Offered to transfer to Tertiary hospital given lack to availability of Vascular surgery till Monday and need for IVC filter placement given PE/DVT and bleeding issues. Patient/Family prefers not be transferred and would like to have the IVC filter placed at [facility] on Monday Vascular Surgery Consulted Planned for IVC filter placement and Laparoscopic resection of colon mass tomorrow NPO after midnight Colon prep today Right Upper Extremity Hematoma: RUE USD:Complex 15.2 x 3 x 3 cm right upper arm fluid collection. This favors a resolving hematoma, possibly intramuscular. Monitor H&H Consider reevaluation by Ortho if needed Chronic hypoxemic respiratory failure on home O2 Chronic diastolic heart failure Continue home diuretics as able Monitor volume status Appreciate Cardiology Input Resumed home lasix at 60mg daily Will hold diuretics tomorrow for surgery Diarrhea Stool for C. difficile negative Likely secondary to antibiotics On probiotics IV fluids as needed Hypokalemia Replace as needed Nonobstructive CAD/TIA Continue home meds 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 Supratherapeutic INR 3.5>>2.2>1.1 Held Coumadin due to GI Bleed Monitor INR Plan for IVC filter as anticoagulation Risks Vs Benefits discussed with patient/family given inability to restart anticoagulation currently and risk for clotting/bleeding Patient/Family understands and agrees with current management After further discussing with Patient/Family and consultants: Was started on Lovenox 30mg daily--If any recurrence of bleeding issues--will Stop all anticoagulation Hypertension Continue home meds Monitor Hyperlipidemia on statin Bronchial asthma Ongoing steroid Rx for last couple of months Breast cancer S/P surgery, tamoxifen on hold following recent confinement for PE DVT Follows with [facility] oncologist Thyroid cancer S/P surgery Post surgical hypothyroidism chronic, stable. Continue levothyroxine Abnormal LFTs CT ABD:The liver is homogeneous in attenuation on these limited noncontrast images. There is again cholelithiasis with no CT evidence for acute cholecystitis. Avoid hepatotoxic agents as able LFTs trending down DM II New Diagnosis H/O Prediabetes Likely worsened due to setoids HbA1C:6.8 No tight glycemic control needed given advanced age Monitor BGs off meds CKD Stage III Cr at baseline Monitor renal function Avoid nephrotoxic agents as able Acute on Chronic anemia Multifactorial: CKD, Acute blood loss anemia, Iron deficeicny Hb at baseline S/P 1 unit PRBCs Continue Iron supplements Ambulatory dysfunction/functional disability Fall precautions PT/OT DVT Px: Coumadin--Held Received low dose lovenox SCDs Code Status Full Code Disposition PT/OT prior to discharge (2) Cellulitis of arm, right: (3) Supratherapeutic INR: (4) Acute UTI: Admission and Anticipated Discharge Date Admission Date: October 20, 2021 Subjective Patient is seen and examined at bedside Discussed with surgery today Plan for IVC filter, colon surgery tomorrow Bowel prep planned for today No new complaints today No recurrence of bleeding Discussed with patient's daughter at bedside Denies any chest pain, dyspnea, dizziness, nausea Plan to transfuse 1 unit PRBC today Review of Systems Review of Systems: All systems reviewed & are unremarkable except as noted in Subjective Physical Exam Physical Exam: Physical Exam: Vitals signs as noted above General Appearance:Moderately built and nourished, no apparent distress Head: normocephalic, Atraumatic Eyes: normal inspection, EOMI Neck: supple, Trachea midline Respiratory/Chest: Normal breath sounds, CTA, No accessory muscle use Cardiovascular: S1, S2, +murmur Abdomen/GI:Soft, Non tender, Bowel sounds present Extremities/Musculoskeletal:normal inspection, Trace edema, RUE swelling Neurologic/Psych:AAOX2, grossly no focal neurological deficits Skin: normal color, warm Results & Data Results & Data ([facility]) Vital Signs (Past 12 Hours) Vital Signs Temp Pulse Pulse Resp BP Pulse Ox 11/01/21 15:53 37.0 C 69 15 140/70 98 11/01/21 15:25 37.2 C 85 16 142/72 H 99 11/01/21 14:43 66 18 98 11/01/21 14:25 36.9 C 77 16 144/67 H 97 11/01/21 14:19 64 11/01/21 13:25 36.6 C 67 15 143/75 H 97 11/01/21 12:55 37.0 C 67 15 123/65 97 11/01/21 12:25 36.7 C 76 15 132/62 97 11/01/21 12:10 36.9 C 70 16 142/58 H 98 11/01/21 11:55 37.0 C 85 16 145/58 H 98 11/01/21 11:29 71 18 97 11/01/21 07:10 78 18 97 Laboratory Results Short CBC 11/01/21 Range/Units 07:20 WBC 11.97 H (4.8-10.8) K/uL Hgb 8.6 L (12.0-16.0) g/dL Hct 26.9 L (37-47) % Plt Count 388 (130-400) K/uL BMP 11/01/21 07:20 Sodium 139 Potassium 3.7 Chloride 101 Carbon Dioxide 31 BUN 30 H Creatinine 0.99 Glucose 93 Calcium 8.7
[2021-11-01] MEDS: MONTELUKAST SODIUM 10 MG TABLET PO SCH (20:15)
[2021-11-01] MEDS: ISOSORBIDE MONO EXTENDED REL 60 MG TABCR PO SCH (20:16)
[2021-11-01] MEDS: MELATONIN 3 MG TAB PO PRN (20:22)
[2021-11-01] MEDS ORDERED: ACETAMINOPHEN 1000 MG/100 ML IV IV STA (21:02)
[2021-11-02] MEDS: carvediloL 12.5 MG TAB PO SCH ×2 (05:36→19:12)
[2021-11-02] MEDS: LEVOTHYROXINE SODIUM 200 MCG TABLET PO SCH (05:36)
[2021-11-02] MEDS: BUDESONIDE 0.5 MG/2 ML VIAL (PULMICORT) INH SCH ×2 (06:58→19:14)
[2021-11-02] MEDS: LEVALBUTEROL HCL 1.25 MG/3 ML NEB INH SCH ×4 (06:58→19:14)
[2021-11-02 07:02] LABS: Hematocrit (blood only) 30.5 % (37-47); Hemoglobin 9.8 g/dL (12.0-16.0); Mean Corpuscular Hemoglobin 29.4 pg (25-34); Mean Corpuscular Hgb Conc 32.1 g/dL (32-36); Mean Corpuscular Volume 91.6 fL (80-100); Mean Platelet Volume 9.7 fL (7.4-10.4); Platelet Count 381 K/uL (130-400); RDW Standard Deviation 55.7 fL (36.4-46.3); Red Blood Count 3.33 M/uL (4.2-5.4); White Blood Count 8.93 K/uL (4.8-10.8)
[2021-11-02 07:44] LABS: BUN Creatinine Ratio 29.5 (10-20); Calcium 8.7 mg/dl (8.5-10.1); Creatinine Clr Calc Pharmacy 30.1 ml/min; Est GFR (African American) 54.5 ml/min
[2021-11-02] MEDS: FAMOTIDINE 20 MG TAB PO SCH (07:45)
[2021-11-02] MEDS: ESCITALOPRAM OXALATE 10 MG TAB PO SCH (07:45)
[2021-11-02] MEDS: LACTOBACILLUS ACIDOPHILUS 1 GM PACK PO SCH ×3 (07:45→18:33)
[2021-11-02] MEDS: AZELASTINE HCL 0.1% NASAL 200 SPRAYS/27,400 MCG BTL SCH ×2 (07:45→21:23)
[2021-11-02] MEDS: predniSONE 2.5 MG TAB PO SCH (07:46)
[2021-11-02] MEDS: FEXOFENADINE HCL 180 MG TAB PO SCH (07:46)
[2021-11-02] MEDS: SUCRALFATE 1 GM/10 ML UDC PO SCH ×3 (07:46→21:24)
[2021-11-02] MEDS: POTASSIUM CHLORIDE 10 MEQ TABCR PO SCH (07:46)
[2021-11-02] MEDS: FLUTICASONE/VILANTEROL 200/25MCG 14 PUFFS/INHALER INH SCH (07:46)
[2021-11-02] MEDS: FERROUS SULFATE 325 MG TAB PO SCH (07:46)
[2021-11-02] MEDS: TRIAMCINOLONE ACET NASAL SPRAY 10.8ML BTL SCH ×2 (07:46→21:24)
[2021-11-02] MEDS: PANTOprazole 40 MG in SYRINGE 0 ML IV SCH ×2 (08:21→20:28)
--- NOTE | 2021-11-02 10:10 | Hospitalist Progress Note ---
Date of Service November 02, 2021 Assessment & Plan (1) Generalized weakness: Plan: Generalized weakness Likely multifactorial Complicated UTI: Multidrug-resistant Proteus on outpatient urine culture Traumatic RUE cellulitis Blood Cultures: Negative to date Outpatient Urine Cx from 10/18/21: Proteus mirabilis sensitive to cefepime, ciprofloxacin, gentamicin, meropenem, Zosyn, Bactrim. Resistant to ampicillin, Unasyn, cefazolin, cefoxitin, ceftriaxone. Stool for C. difficile negative Completed 5 day course of Zosyn>>Cipro--Completed course Continue Zosyn>>> transitioned to cefdinir for cellulitis>>Completed the course Appreciate orthopedics input. No I&D needed as per Ortho. 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 Biopsied. Tattooed. Diverticulosis in the sigmoid colon. S/P EGD:Normal esophagus. Normal examined duodenum. Small hiatal hernia. No specimens collected. Pathology Pending Melena/Rectal Bleeding likely due to Colon mass Hold IV Heparin, Coumadin INR subtherapeutic : 1.1 Avoid anticoagulants Continue IV PPI Type and cross Transfuse as needed Monitor H&H Appreciate GI Input Appreciate Surgery Input Offered to transfer to Tertiary hospital given lack to availability of Vascular surgery till Monday and need for IVC filter placement given PE/DVT and bleeding issues. Patient/Family prefers not be transferred and would like to have the IVC filter placed at [facility] on Monday Vascular Surgery Consulted Planned for IVC filter placement and Laparoscopic resection of colon mass today NPO currently Right Upper Extremity Hematoma: RUE USD:Complex 15.2 x 3 x 3 cm right upper arm fluid collection. This favors a resolving hematoma, possibly intramuscular. Monitor H&H Consider reevaluation by Ortho if needed Chronic hypoxemic respiratory failure on home O2 Chronic diastolic heart failure Continue home diuretics as able Monitor volume status Appreciate Cardiology Input Held diuretics as planned for surgery Diarrhea Stool for C. 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 Supratherapeutic INR 3.5>>2.2>1.1 Held Coumadin Monitor INR Plan for IVC filter as anticoagulation Risks Vs Benefits discussed with patient/family given inability to restart anticoagulation currently and risk for clotting/bleeding Patient/Family understands and agrees with current management Anticoagulation held as planned for surgery Hypertension Continue home meds Monitor Hyperlipidemia on statin Bronchial asthma Ongoing steroid Rx for last couple of months Breast cancer S/P surgery, tamoxifen on hold following recent confinement for PE DVT Follows with [facility] oncologist Thyroid cancer S/P surgery Post surgical hypothyroidism chronic, stable. Continue levothyroxine Abnormal LFTs CT ABD:The liver is homogeneous in attenuation on these limited noncontrast images. There is again cholelithiasis with no CT evidence for acute cholecystitis. Avoid hepatotoxic agents as able LFTs trending down DM II New Diagnosis H/O Prediabetes Likely worsened due to setoids HbA1C:6.8 No tight glycemic control needed given advanced age Monitor BGs off meds CKD Stage III Cr at baseline Monitor renal function Avoid nephrotoxic agents as able Acute on Chronic anemia Multifactorial: CKD, Acute blood loss anemia, Iron deficeicny Hb at baseline S/P 2 unit PRBCs Continue Iron supplements Ambulatory dysfunction/functional disability Fall precautions PT/OT DVT Px: Coumadin/lovenox--Held for surgery SCDs Code Status Full Code Disposition PT/OT prior to discharge (2) Cellulitis of arm, right: (3) Supratherapeutic INR: (4) Acute UTI: Admission and Anticipated Discharge Date Admission Date: October 20, 2021 Subjective Patient is seen and examined at bedside Reports some RUE pain but otherwise no complaints Scheduled for IVC filter, colon surgery today Had bowel prep overnight Denies any chest pain, dyspnea, dizziness, nausea Hb stable Review of Systems Review of Systems: All systems reviewed & are unremarkable except as noted in Subjective Physical Exam Physical Exam: Physical Exam: Vitals signs as noted above General Appearance:Moderately built and nourished, no apparent distress Head: normocephalic, Atraumatic Eyes: normal inspection, EOMI Neck: supple, Trachea midline Respiratory/Chest: Normal breath sounds, CTA, No accessory muscle use Cardiovascular: S1, S2, +murmur Abdomen/GI:Soft, Non tender, Bowel sounds present Extremities/Musculoskeletal:normal inspection, Trace edema, RUE swelling Neurologic/Psych:AAOX2, grossly no focal neurological deficits Skin: normal color, warm Results & Data Results & Data ([facility]) Vital Signs (Past 12 Hours) Vital Signs Temp Pulse Pulse Resp BP Pulse Ox 11/02/21 07:43 80 11/02/21 06:59 70 16 96 11/02/21 06:46 36.5 C 67 18 178/75 H 98 11/02/21 04:50 36.7 C 86 18 168/69 H 97 11/02/21 02:52 81 Laboratory Results Short CBC 11/02/21 Range/Units 05:51 WBC 8.93 (4.8-10.8) K/uL Hgb 9.8 L (12.0-16.0) g/dL Hct 30.5 L (37-47) % Plt Count 381 (130-400) K/uL BMP 11/02/21 05:51 Sodium 137 Potassium 4.0 Chloride 102 Carbon Dioxide 28 BUN 31 H Creatinine 1.05 Glucose 94 Calcium 8.7
--- NOTE | 2021-11-02 10:34 | Anesthesiology Consultation ---
Date of Service November 02, 2021 Assessment & Plan Chart Review Chart Review: Acceptable Risk for Surgery and Patient NOT seen in Pre Admission Testing Consults Requested none ASA ASA4 Proposed Anesthesia Anesthesia Type: General Anesthesia Line Insertion: Arterial line History Surgery Operation Date: 10/28/21 16:30 Proposed Procedures p Flexible Sigmoidoscopy Dr Nancy Cruz, s Esophagogastroduodenoscopy Dr Nancy Cruz, Operation Date: 11/02/21 11:45 Proposed Procedures p Inferior Vena Cava Filter Placement (1st procedure ) - Tony Marmolejo MD p Laparoscopic Sigmoid Colectomy - Burt Washington, Height/Weight Height: 4 ft 10 in Weight: 69.9 kg 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, polysomnography tech recommended not to take sulfamethoxazole Allergy Mild RASH Verified 10/28/21 10:26 trimethoprim Allergy Mild RASH Verified 10/28/21 10:26 amlodipine Allergy legs swell Verified 10/28/21 10:26 severe azithromycin Allergy Unknown Verified 10/28/21 10:26 ipratropium Allergy Anaphylaxis Verified 10/28/21 10:26 Sulfa (Sulfonamide Allergy Difficulty Verified 10/28/21 10:26 Antibiotics) Breathing doxycycline AdvReac Unknown GI upset Verified 10/28/21 10:26 cefuroxime [From Ceftin] AdvReac Diarrhea Verified 10/28/21 10:26 narcotic in general AdvReac Severe Hallucinati Uncoded 10/28/21 10:26 ng Medications Home Medications Medication Instructions Recorded Confirmed Last Taken allopurinol 100 mg tablet 200 mg PO QAM 02/19/19 10/19/21 10/19/21 09:00 atorvastatin 40 mg tablet 40 mg PO PM 02/19/19 10/19/21 10/19/21 17:00 azelastine 137 mcg (0.1 %) nasal 1 spray INTRANASAL BID 02/19/19 10/19/21 10/18/21 17:00 spray aerosol budesonide 0.5 mg/2 mL suspension 0.5 mg INHALATION BID 02/19/19 10/19/21 10/19/21 17:00 for nebulization carvedilol 25 mg tablet (Coreg) 12.5 mg PO BID 02/19/19 10/19/21 10/19/21 17:00 cholecalciferol (vitamin D3) 25 2,000 unit PO 3XWK 02/19/19 10/19/21 10/19/21 09:00 mcg (1,000 unit) capsule (Vitamin D3) escitalopram oxalate 10 mg tablet 5 mg PO QAM 02/19/19 10/19/21 10/19/21 09:00 (Lexapro) fexofenadine 180 mg tablet 180 mg PO QAM 02/19/19 10/19/21 10/19/21 09:00 levalbuterol HCl 1.25 mg/3 mL 1.25 mg INHALATION QID 02/19/19 10/19/21 10/19/21 18:00 solution for nebulization (Xopenex) montelukast 10 mg tablet 10 mg PO PM 02/19/19 10/19/21 10/19/21 18:00 nitroglycerin 0.4 mg sublingual 0.4 mg BUCCAL .UD PRN 02/19/19 10/19/21 Unknown tablet (Nitrostat) pantoprazole 40 mg tablet,delayed 40 mg PO BID 02/19/19 10/19/21 10/19/21 18:00 release (Protonix) sodium chloride 0.65 % nasal spray 2 spray INTRANASAL QID PRN 02/19/19 10/19/21 Unknown aerosol (Saline Nasal) spironolactone 25 mg tablet 12.5 mg PO QAM 02/19/19 10/19/21 10/19/21 09:00 tamoxifen 20 mg tablet 20 mg PO . ON HOLD 02/19/19 10/19/21 09/24/21 triamcinolone acetonide 55 mcg 1 spray INTRANASAL BID 02/19/19 10/19/21 10/19/21 18:00 nasal spray aerosol (Nasacort) isosorbide mononitrate 60 mg 60 mg PO HS 11/15/20 10/19/21 10/18/21 22:00 tablet,extended release 24 hr needs todays dose levalbuterol tartrate 45 1 puff INHALATION Q4H PRN 11/15/20 10/19/21 Unknown mcg/actuation aerosol inhaler acetaminophen 500 mg tablet 500 mg PO TID 05/19/21 10/19/21 10/19/21 21:00 magnesium oxide 400 mg (241.3 mg 800 mg PO QAM 05/19/21 10/19/21 10/19/21 09:00 magnesium) tablet sucralfate 100 mg/mL oral 10 ml PO TID 05/19/21 10/19/21 10/19/21 16:00 suspension needs 2200 dose famotidine 20 mg tablet 20 mg PO BID 05/28/21 10/19/21 10/19/21 17:00 benzonatate 100 mg capsule 100 mg PO TID PRN 09/24/21 10/19/21 Unknown calcitriol 0.25 mcg capsule 0.25 mcg PO 3XWK 09/24/21 10/19/21 10/18/21 09:00 clotrimazole-betamethasone 1 1 applic TOPICAL BID PRN 09/24/21 10/19/21 Unknown %-0.05 % topical cream guaifenesin 600 mg tablet, 600 mg PO BID 09/24/21 10/19/21 10/19/21 18:00 extended release 12 hr (Mucinex) hydralazine 10 mg tablet 10 mg PO TID PRN 09/24/21 10/19/21 Unknown iron,carbonyl 65 mg-vitamin C 125 1 tab PO BID 09/24/21 10/19/21 10/19/21 18:00 mg tablet,delayed release (Vitron-C) lidocaine HCl 2 % mucosal solution 1 applic TOPICAL DAILY PRN 09/24/21 10/19/21 Unknown budesonide-formoterol HFA 160 2 puff INHALATION BID 10/19/21 10/19/21 10/19/21 09:00 mcg-4.5 mcg/actuation aerosol inhaler (Symbicort) cefdinir 300 mg capsule 300 mg PO QAM 10/19/21 10/19/21 10/19/21 12:00 docusate sodium 100 mg capsule 200 mg PO BID 10/19/21 10/19/21 10/19/21 18:00 furosemide 40 mg tablet 60 mg PO UD 10/19/21 10/19/21 10/19/21 14:00 levothyroxine 200 mcg tablet 200 mcg PO DAILYBB 10/19/21 10/19/21 10/19/21 06:00 nystatin 100,000 unit/gram topical 1 applic TOPICAL BID PRN 10/19/21 10/19/21 Unknown powder nystatin 100,000 unit/mL oral 10 ml BUCCAL BID 10/19/21 10/19/21 10/18/21 18:00 suspension potassium chloride 10 mEq 10 meq PO UD 10/19/21 10/19/21 10/19/21 14:00 tablet,extended release prednisone 5 mg tablet 5 mg PO DAILY 10/19/21 10/19/21 10/19/21 09:00 warfarin 2 mg tablet 1 mg PO . CURRENTLY ON HOLD 10/19/21 10/19/21 10/17/21 18:00 2mg now reduced to 1 Active Medications Generic Name Dose Route Start Last Admin Trade Name Freq PRN Reason Stop Dose Admin Acetaminophen 500 mg 10/29/21 13:24 11/01/21 06:14 Acetaminophen 500 Mg Tab PO 11/28/21 13:23 500 mg BID PRN Administration Pain Ascorbic Acid 250 mg 10/23/21 10:30 10/26/21 08:44 Ascorbic Acid 500 Mg Tab PO 11/22/21 10:29 250 mg BID CHETAN Administration Azelastine HCl 1 sprays 10/20/21 09:00 11/02/21 07:45 Azelastine Hcl 0.1% Nasal 200 Sprays/27,400 Mcg Btl NA 11/19/21 08:59 Not Given BID CHETAN Budesonide 0.5 mg 10/20/21 07:00 11/02/21 06:58 Budesonide 0.5 Mg/2 Ml Vial (Pulmicort) INH 11/19/21 06:59 0.5 mg BIDR CHETAN Administration Carvedilol 12.5 mg 10/21/21 17:00 11/02/21 05:36 Carvedilol 12.5 Mg Tab PO 11/20/21 16:59 Not Given BID@0600,1700 CHETAN Diclofenac Sodium 2 gm 10/25/21 18:45 10/31/21 08:34 Diclofenac Sod 1% Gel 100 Gm Tube EXT 11/24/21 20:59 2 gm BID PRN Administration Pain Protocol Docusate Sodium 200 mg 10/20/21 09:00 10/24/21 08:51 Docusate Sodium 100 Mg Cap PO 11/19/21 08:59 Not Given BID CHETAN Escitalopram Oxalate 5 mg 10/20/21 09:00 11/02/21 07:45 Escitalopram Oxalate 10 Mg Tab PO 11/19/21 08:59 Not Given QAM CHETAN Famotidine 20 mg 10/26/21 09:00 11/02/21 07:45 Famotidine 20 Mg Tab PO 11/25/21 08:59 Not Given DAILY CHETAN Protocol Ferrous Sulfate 325 mg 10/23/21 10:30 11/02/21 07:46 Ferrous Sulfate 325 Mg Tab PO 11/22/21 10:29 Not Given BID CHETAN Fexofenadine HCl 180 mg 10/20/21 09:00 11/02/21 07:46 Fexofenadine Hcl 180 Mg Tab PO 11/19/21 08:59 Not Given QAM CHETAN Fluticasone/Vilanterol 1 puffs 10/20/21 09:00 11/02/21 07:46 Fluticasone/Vilanterol 200/25mcg 14 Puffs/Inhaler INH 11/19/21 08:59 Not Given DAILY CHETAN Furosemide 60 mg 10/21/21 17:00 10/26/21 08:46 Furosemide 20 Mg Tab PO 11/20/21 16:59 60 mg BID17 CHETAN Administration Guaifenesin 600 mg 10/20/21 09:00 10/26/21 08:44 Guaifenesin 600 Mg Tabcr PO 11/19/21 08:59 600 mg BID CHETAN Administration Pantoprazole Sodium 40 mg/ 10 mls @ 5 mls/min 10/29/21 21:00 11/02/21 08:21 Syringe IV 11/28/21 20:59 5 mls/min BID CHETAN Administration Isosorbide Mononitrate 60 mg 10/20/21 21:00 11/01/21 20:16 Isosorbide Long Extended Rel 60 Mg Tabcr PO 11/19/21 20:59 60 mg HS CHETAN Administration Lactobacillus Acidophilus 1 gm 10/24/21 12:00 11/02/21 07:45 Lactobacillus Acidophilus 1 Gm Pack PO 11/23/21 11:59 Not Given TIDM CHETAN Levalbuterol HCl 1.25 mg 10/20/21 07:00 11/02/21 06:58 Levalbuterol Hcl 1.25 Mg/3 Ml Neb INH 11/19/21 06:59 1.25 mg QIDR CHETAN Administration Protocol Levothyroxine Sodium 200 mcg 10/20/21 06:30 11/02/21 05:36 Levothyroxine Sodium 200 Mcg Tablet PO 11/19/21 06:29 Not Given DAILYBB CHETAN Loperamide HCl 2 mg 10/23/21 12:15 10/27/21 09:22 Loperamide Hcl 2 Mg Cap PO 11/22/21 12:14 2 mg Q6H PRN Administration Diarrhea Melatonin 3 mg 10/25/21 22:17 11/01/21 20:22 Melatonin 3 Mg Tab PO 11/24/21 22:16 3 mg HS PRN Administration Sleep Montelukast Sodium 10 mg 10/20/21 21:00 11/01/21 20:15 Montelukast Sodium 10 Mg Tablet PO 11/19/21 20:59 10 mg PM CHETAN Administration Nystatin 1 appln 10/20/21 21:16 11/01/21 07:49 Nystatin Powder 15gm Btl EXT 11/19/21 21:15 1 appln BID PRN Administration rash Pantoprazole Sodium 40 mg 10/20/21 09:00 10/26/21 08:45 Pantoprazole 40 Mg Tab PO 11/19/21 08:59 40 mg BID CHETAN Administration Potassium Chloride 10 meq 10/20/21 10:40 11/02/21 07:46 Potassium Chloride 10 Meq Tabcr PO 11/19/21 10:39 Not Given BID CHETAN Prednisone 2.5 mg 10/27/21 09:00 11/02/21 07:46 Prednisone 2.5 Mg Tab PO 11/26/21 08:59 Not Given DAILY CHETAN Spironolactone 12.5 mg 10/24/21 09:00 10/26/21 08:45 Spironolactone 12.5 Mg Tab PO 11/23/21 08:59 12.5 mg QAM CHETAN Administration Sucralfate 1 gm 10/25/21 14:00 11/02/21 07:46 Sucralfate 1 Gm/10 Ml Udc PO 11/24/21 13:59 Not Given TID CHETAN Triamcinolone Acetonide 1 sprays 10/20/21 09:00 11/02/21 07:46 Triamcinolone Acet Nasal [place] 10.8ml Btl NA 11/19/21 08:59 Not Given BID CHETAN NPO Last Intake of Fluids Comment: sip of water Past Medical History Medical History Anemia recent hospitalization at [facility] 2 weeks ago Anticoagulated on Coumadin Anxiety Asthma, moderate persistent not well controlled, frequent nebulizer use Chronic diastolic CHF (congestive heart failure) follows with Dr. Benjamin CKD (chronic kidney disease), stage III follows [address] Dr. 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, no surgeries Hypothyroidism (acquired) "s/p thyroidectomy and radioiodine therapy for cancer treatment" Hysterectomy (02/22/13) IBS (irritable bowel syndrome) Labile hypertension Osteoporosis (02/22/13) PAF (paroxysmal atrial fibrillation) hx of 10 yrs ago > no longer on ASA or Coumadin as of 2 weeks ago 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 Father , Passed age 50 of [place] No problems noted. Brother Lung fibrosis Brother , Passed age 63 of allergic reaction to antibiotics No problems noted. Sister , Passed age 83 of "electrolyte disturbances" DCIS (ductal carcinoma in situ) Sister , Passed age 84 from post surgical complications No problems noted. Sister No problems noted. Daughter No problems noted. Daughter No problems noted. Son No problems noted. Past Surgical History Surgical History H/O total thyroidectomy History of appendectomy History of bladder suspension procedure History of cardiac cath 10 yrs ago > no stents History of cataract surgery bilat History of colonoscopy History of esophagogastroduodenoscopy (EGD) History of herniorrhaphy History of tooth extraction Past Anesthesia History No Hx of Anesthesia Complications and No Family Hx of Anesthesia Complications History of PONV No Hx of PONV and No Hx of Motion Sickness Social History Smoking Status: Never smoker Hx Alcohol Use: No Alcohol type: wine alcohol intake frequency: holidays/special occasions only Hx Substance Use: No substance use type: does not use Physical Exam Vital Signs Last Vital Signs Temp 36.5 C 11/02/21 06:46 Pulse 80 11/02/21 07:43 Resp 16 11/02/21 06:59 BP 178/75 H 11/02/21 06:46 Pulse Ox 96 11/02/21 06:59 Testing Laboratory Results 11/02/21 05:51 11/02/21 05:51 PT 11.4 Seconds (9.0-12.0) 11/01/21 07:20 INR 1.1 (0.9-1.1) 11/01/21 07:20 APTT 55.0 Seconds (21.0-31.0) H* 10/26/21 06:42 Hemoglobin A1c 6.8 % (4.5-5.6) H 10/19/21 19:45 Urine Color Yellow 10/19/21 18:54 Urine Appearance Cloudy (Clear) A 10/19/21 18:54 Urine pH 5.0 (4.5-7.5) 10/19/21 18:54 Ur Specific [place] 1.015 (1.000-1.030) 10/19/21 18:54 Urine Protein Trace (Negative) H 10/19/21 18:54 Urine Glucose (UA) Negative (Negative) 10/19/21 18:54 Urine Ketones Negative (Negative) 10/19/21 18:54 Urine Nitrite Negative (Negative) 10/19/21 18:54 Ur Leukocyte Esterase 2+ (Negative) H 10/19/21 18:54 Urine WBC (Auto) >30 /hpf (0-5) H 10/19/21 18:54 Urine RBC (Auto) 0-4 /hpf (0-4) 10/19/21 18:54 U Hyaline Cast (Auto) 1-5 /lpf (0-5) 10/19/21 18:54 U Epithel Cells (Auto) >30 /lpf (0-5) H 10/19/21 18:54 Urine Bacteria (Auto) 1+ (Negative) H 10/19/21 18:54 Blood Type A Positive 10/30/21 09:55 Antibody Screen NEGATIVE 10/30/21 09:55 10/19/21 20:00 Aerobic Blood Culture - Final Blood No growth in Aerobic bottle after 5 days. Anaerobic Blood Culture - Final 10/19/21 19:45 Aerobic Blood Culture - Final Blood No growth in Aerobic bottle after 5 days. Anaerobic Blood Culture - Final No growth in Anaerobic bottle after 5 days. 10/19/21 18:54 Urine Culture - Final Urine,Clean Catch More than three types of organisms present, all moderate counts mixed probable skin alin. No further identifications or sensitivities to follow. Electrocardiogram Date: 10/19/21 Findings: + NSR @ (at 76 w/ 1st degree AVB) and + NSST changes Chest X-Ray Date: 10/19/21 Findings: + NAD, + R hemidiaphragm elevation and + other (moderate hiatal hernia) Echocardiogram Date: 09/25/21 EF: 60% LV Function: normal RWMA: + none Other Findings: + LVH and + diastolic dysfunction (Grade 3) Valvular Disease: + no significant valvular disease
[2021-11-02] MEDS ORDERED: ceFAZolin 1000MG 1,000 MG/7.5 ML SYR IV ONE (11:00)
--- NOTE | 2021-11-02 11:10 | History & Physical Bridge Note ---
Date of Service November 02, 2021 History & Physical Bridge Note Patient for insertion of vena cava filter today. I have discussed the risks options and benefits of the procedure with the patient. The patient understands the risks options and benefits and agrees to the procedure. I have examined the patient, reviewed the History & Physical and in the interval since the performance of the History & Physical I have noted the following changes of clinical significance: no changes noted
[2021-11-02] MEDS ORDERED: BUPIVACAINE 0.5 % 5 MG/1 ML MPF 30ML VIAL ONE (11:37)
[2021-11-02] MEDS ORDERED: EPINEPHrine INJ 1 MG/ML AMP ONE (11:37)
--- NOTE | 2021-11-02 12:06 | History & Physical Bridge Note ---
Date of Service November 02, 2021 History & Physical Bridge Note I have examined the patient, reviewed the History & Physical and in the interval since the performance of the History & Physical I have noted the following changes of clinical significance: no changes noted Patient seen along with her daughter. No major changes overnight. Her hemoglobin is improved after the blood transfusion. She did have some difficulty logistically with the bowel prep. I had a long discussion with them today. We discussed the potential of performing the sigmoid colon resection with a permanent end colostomy. This would decrease the operative time, decrease the risk profile of the surgery, and perhaps make her quality of life better than needing to try to use the bathroom the rest of her life with limited mobility hygiene issues etc. After long discussion they agree. Today surgical plan will be a laparoscopic sigmoid colon resection with permanent end colostomy. I have answered all their questions.
[2021-11-02] MEDS ORDERED: fentaNYL citrate 100 MCG/2 ML VIAL ONE ×3 (13:03→14:47)
--- NOTE | 2021-11-02 14:02 | Procedure Note ---
Angiogram Post Procedure Fluoroscopy Time (minutes): 1.22 Contrast: 5cc Post Operative Report Pre & Post Diagnosis Operation Date: 10/28/21 16:30 Pre-Op Diagnosis: GI Bleed Post-Op Diagnosis: EGD: Normal Colonoscopy: Divericulosis Sigmoid Mass Operation Date: 11/02/21 11:45 Pre op dx: Acute DVT with GI bleed Post op dx: Acute DVT with GI bleed I identified the patient and participated in the time-out.: Yes Procedure Operation Date: 10/28/21 16:30 Actual Procedures p Esophagogastroduodenoscopy - Amparo Cruz DO s Flexible Sigmoidoscopy Biopsy - Amparo Oksana Cruz DO Operation Date: 11/02/21 11:45 Insertion of vena cava filter femoral approach Surgeon Tony Marmolejo MD Top Dyeing Machine Loader Stella Hodges MD Estimated Blood Loss 5 Findings Consistent with Post-Op Diagnosis see operative report Specimens none Anesthesia Type MAC Complications none none immediate Disposition Accompanied Patient To Recovery: No Indications This is an 89 year old female with bilateral lower extremity DVTs and also with PEs who was placed on anticoagulation then developed GI bleeding. Her workup was notable for a colonic mass. She is planned to undergo resection of this colonic mass later today and thus cannot be on anticoagulation. She presents for IVC filter placement. Description of Procedure The patient was taken to the operating room. She was transferred over to the operating room table and placed in the supine position. The bilateral groins were prepped and draped in the usual sterile fashion. A team timeout was performed. Under ultrasound guidance the right common femoral vein was accessed percutaneously. Through the needle an angled glidewire was passed into the inferior vena cava. This was done with fluoroscopic guidance. The needle was removed. A small joann was made in the skin. An 8F dilator was passed through the venotomy. Then the sheath for the cook select filter was advanced over the wire into the inferior vena cava. Venography was obtained using hand injection. The renal veins were at about the L1-L2 level. The filter was deployed about the L3 level. The sheath was removed and manual pressure was held. Hemostasis was obtained. A dry gauze dressing and tegaderm were placed over the access site in the right groin. The patient tolerated the procedure well and without immediate complication. Dr. Marmolejo remained present and scrubbed for the duration of the procedure. At the conclusion of the procedure all needle, sponge, and instrument counts were correct I attest to the content of the Intraoperative Record and any orders documented therein. Any exceptions are noted below.
[2021-11-02] MEDS ORDERED: LIDOCAINE 1% LOCAL 20 ML VIAL INJ ONE (14:06)
[2021-11-02] MEDS ORDERED: VISIPAQUE IV ONE (14:11)
--- NOTE | 2021-11-02 17:01 | Operative Report ---
PG Post Operative Report Pre & Post Diagnosis Operation Date: 10/28/21 16:30 Pre-Op Diagnosis: GI Bleed Post-Op Diagnosis: EGD: Normal Colonoscopy: Divericulosis Sigmoid Mass Operation Date: 11/02/21 11:45 Pre-Op Diagnosis: colon mass Post-Op Diagnosis: colon mass; adhesions. I identified the patient and participated in the time-out.: Yes Procedure Operation Date: 10/28/21 16:30 Actual Procedures p Esophagogastroduodenoscopy - Amparo Cruz DO s Flexible Sigmoidoscopy Biopsy - Amparo Cruz DO Operation Date: 11/02/21 11:45 Actual Procedures p Inferior Vena Cava Filter Placement - MD bob Crooks Laparoscopic Sigmoid Colectomy; end colostomy ; enterolysis- Burt Washington DO Surgeon Burt Washington DO Rail Operations Controller nicole Mcfarlane Estimated Blood Loss 20 Findings Consistent with Post-Op Diagnosis Specimens sigmoid colon Description of Procedure After informed consent was obtained the patient was taken to the operating room. Dr. Marmolejo had placed an inferior vena cava filter. Please see his dictation for that. The patient was then successfully intubated and arterial line placed by anesthesia. A Floyd catheter was placed and the abdomen was sterilely prepped and draped in usual fashion. A periumbilical incision was made with an 11 blade scalpel and carried down through the soft tissue using cautery. Anterior fascia was opened using cautery and two #0 Vicryl stay sutures were p laced. Peritoneum was entered using blunt finger penetration and a finger sweep was performed. A 12 mm Jung trocar was placed and the abdomen was insufflated to 15 mmHg. Laparoscope was inserted and the abdomen examined 360 degrees. There were some central and lower abdominal adhesions. I was able to place a right lower quadrant 12 mm port a right mid abdominal 5 mm port and eventually a left lower quadrant 5 mm port all under direct vision. The patient was placed in a Trendelenburg position. I began by taking down adhesions from the mid abdomen and lower abdomen using blunt dissection as well as the harmonic scalpel. We were able to readily identify the tattoo otto. I began by mobilizing the sigmoid and left colon along the white line of Toldt using blunt dissection as well as small amounts of harmonic scalpel. We carried this superiorly almost to the spleen and inferiorly down over the pelvic reflection. Next I made a small window in the proximal colon several centimeters proximal to the tattoo otto. A DINO purple cartridge linear stapler was then used to transect the colon. We then took down the mesentery of the sigmoid colon coming from proximal to distal again using a harmonic scalpel. Once we were well below the distal tattoo otto I then transected the colon again using a DINO purple cartridge stapler. We thoroughly irrigated the pelvis. There was adequate hemostasis. A 10 flat Ranulfo-Frost drain was placed into the pelvis and brought out through the right lower quadrant incision and secured to the skin using 2-0 nylon. Next we removed all the trochars and closed the fascia of the camera port using 0 Vicryl. The wounds were all irrigated and closed using 4-0 Monocryl. Next we extended the left lower quadrant incision including the fascia. We delivered the specimen and passed it off to the back table. We then delivered the proximal staple line of the colon out through the same incision. We matured the stoma in [place]ba fashion using 3-0 Monocryl. Stoma bag was placed. Dermabond glue was placed over the trocar sites. The patient was awakened extubated and transferred to the intensive care unit in guarded condition. My physician assistant designer was present for the entire case. He was instrumental in running the camera as well as assisting with all aspects of my dissection as well as stoma formation. I attest to the content of the Intraoperative Record and any orders documented therein. Any exceptions are noted below.
[2021-11-02] MEDS ORDERED: LIDOCAINE 2% 2 ML VIAL/AMP(20MG/ML) INFIL ONE (17:08)
[2021-11-02] MEDS ORDERED: ePHEDrine sulfate 50 MG/ML AMP ONE (17:08)
[2021-11-02] MEDS ORDERED: PROPOFOL IV EMULSION 10 MG/ML 20 ML VIAL IV ONE (17:08)
[2021-11-02] MEDS ORDERED: DEXAMETHASONE SOD INJ 4 MG/ML VIAL ONE (17:08)
[2021-11-02] MEDS ORDERED: ONDANSETRON INJ 2 MG/ML 2 ML VIAL ONE (17:08)
[2021-11-02] MEDS ORDERED: ePHEDrine sulfate 50 MG/ML AMP IV PRN (17:30)
[2021-11-02] MEDS ORDERED: NALOXONE HCL 0.4 MG/1 ML VIAL/CARP IV PRN (17:30)
[2021-11-02] MEDS ORDERED: fentaNYL citrate 100 MCG/2 ML VIAL IV PRN (17:30)
[2021-11-02] MEDS ORDERED: ONDANSETRON INJ 2 MG/ML 2 ML VIAL IV PRN (17:30)
--- NOTE | 2021-11-02 17:59 | Anesthesiology Progress Note ---
Date of Service November 02, 2021 Anesthesia Post Procedure Vital Signs Vital Signs: Temp Pulse Pulse Pulse Pulse Resp BP 11/02/21 17:50 62 18 160/50 H 11/02/21 17:40 63 18 162/53 H 11/02/21 17:30 72 18 165/81 H 11/02/21 17:20 78 18 159/77 H 11/02/21 17:10 73 18 179/66 H 11/02/21 17:00 74 20 173/87 H 11/02/21 16:54 36.2 C L 79 18 150/87 H 11/02/21 11:07 74 17 11/02/21 10:54 36.7 C 65 20 160/82 H 11/02/21 07:43 80 11/02/21 06:59 70 16 11/02/21 06:46 36.5 C 67 18 178/75 H 11/02/21 04:50 36.7 C 86 18 168/69 H 11/02/21 02:52 81 Pulse Ox 11/02/21 17:50 92 11/02/21 17:40 95 11/02/21 17:30 91 11/02/21 17:20 93 11/02/21 17:10 93 11/02/21 17:00 95 11/02/21 16:54 99 11/02/21 11:07 100 11/02/21 10:54 100 11/02/21 07:43 11/02/21 06:59 96 11/02/21 06:46 98 11/02/21 04:50 97 11/02/21 02:52 Pain Intensity Right Shoulder: Pain Intensity: 10 Right Upper Arm: Pain Intensity: 7 Head: Pain Intensity: 4 Neck: Pain Intensity: 7 Abdomen: Pain Intensity: 4 Transfer of Care Handoff Completed per policy Notes Mental Status: alert / awake / arousable Patient Amnestic to Procedure: Yes Nausea / Vomiting: adequately controlled Pain: adequately controlled Airway Patency, RR, SpO2: stable & adequate BP & HR: stable & adequate Hydration State: stable & adequate Anesthetic Complications: no major complications apparent
[2021-11-02 18:01] LABS: Hemoglobin 10.5 g/dL (12.0-16.0)
[2021-11-02 18:28] LABS: BUN Creatinine Ratio 27.1 (10-20); Calcium 8.8 mg/dl (8.5-10.1); Creatinine Clr Calc Pharmacy 32.9 ml/min; Est GFR (African American) 60.8 ml/min; Est GFR (Non-African American) 52.4 ml/min; Potassium 3.9 mmol/L (3.5-5.1)
[2021-11-02] MEDS: cefOXitin 2,000 MG in DEXTROSE 5% 50 ML IV SCH (19:57)
[2021-11-02] MEDS: LACTATED RINGER'S 1,000 ML IV SCH (19:57)
[2021-11-02] MEDS: ACETAMINOPHEN 1,000 MG/100 ML VIAL IV SCH (20:28)
[2021-11-02] MEDS: MoRPHine SULFATE 2 MG/ML CARP IV PRN (21:23)
[2021-11-02] MEDS: MONTELUKAST SODIUM 10 MG TABLET PO SCH (21:24)
[2021-11-02] MEDS: ISOSORBIDE MONO EXTENDED REL 60 MG TABCR PO SCH (21:24)
--- NOTE | 2021-11-02 21:53 | Critical Care Consultation ---
Date of Consultation November 02, 2021 Assessment & Plan (1) Colonic mass: Impression: 89-year-old female with extensive past medical history presents to the ICU postop for colonic tumor resection and colectomy and IVC filter placement. Neuro - [facility] ICU: Negative Anxiety and depressioncontinue Lexapro Generalized weaknesslikely multifactorial in the setting of UTI, abdominal surgery, along with other comorbidities -Stable, monitor for now and treat underlying factors Cardiac - Diastolic heart failurecontinue Imdur. Hold on Lasix following surgery for now -Appears euvolemic on exam. Monitor Proximal A. fibunable to anticoagulate at this time given GI bleed -Currently normal sinus rhythm on monitor -Continuous monitoring on telemetry Respiratory - Acute on chronic hypoxic respiratory failure- secondary to bilateral pulmonary embolisms. History of COPD requiring home oxygen. Currently on 3 L nasal cannula and stable. -IVC filter inserted as patient has bilateral DVTs and unable to anticoagulate due to bleeding/surgery -Continue budesonide, Xopenex, Singulair, prednisone, Breo Ellipta -Continue pulse ox monitoring GI - Colonic massstatus post sigmoidectomy with colostomy with FRANCES drains. Management per general surgery -Suspicious for malignancy. Follow-up cytology -N.p.o. -Continue with PPI RENAL/LYTES - CKDcreatinine stable at 0.96. 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 Continue with Synthroid HEME - Acute GI bleedanticoagulation discontinued. Likely from colonic mass which has been resected. -No active signs of bleeding. H&H stable. No indication for transfusion at this time. Trend ID - Patient with complicated UTI and cellulitis of the right upper arm. LINES/IV ACCESS - Peripheral IVs DVT PROPHYLAXIS - Bilateral DVTs hold anticoagulation in the setting of bleed/surgery. IVC filter inserted Thank you for allowing us to participate in the care of this patient. Please refer to my attending physician's documentation for any further recommendations. (2) Anemia: (3) GI bleeding: (4) Generalized weakness: (5) Acute UTI: (6) Cellulitis of arm, right: (7) Chronic diastolic (congestive) heart failure: (8) DVT, bilateral lower limbs: (9) Bilateral pulmonary embolism: (10) Hypoxia: (11) CAD (coronary artery disease): (12) GI bleed: (13) IBS (irritable bowel syndrome): (14) History of breast cancer: (15) CKD (chronic kidney disease), stage III: (16) H/O total thyroidectomy: (17) GERD (gastroesophageal reflux disease): (18) PAF (paroxysmal atrial fibrillation): (19) Anticoagulated on Coumadin: History of Present Illness Attending Physician: Jesse Pruett MD History of Present Illness Patient is a 89-year-old female with extensive past medical history including chronic hypoxemic respiratory failure, diastolic heart failure, CAD, PAF, PE, DVT, HTN, HLD, hypothyroid, TIAs, GERD, IBS, history of breast cancer and thyroid cancer (postsurgical), CKD who was undergoing treatment for complicated UTI, cellulitis, and generalized weakness, DVTs bilateral and PEs, who was found to have a nonobstructing sigmoid colon mass around 15 cm on 10/28. She was experiencing rectal bleeding and unable to anticoagulate. Today she went for IVC filter placement and sigmoid colectomy. Giving her comprehensive medical history, patient is now being observed in ICU overnight postop day 1. On exam, patient is alert and oriented and only complains of mild abdominal discomfort. She was resting comfortably on entering the room. She is without acute distress. She denies any headache, dizziness, sore throat, fevers, cough, shortness of breath, chest pain or palpitations, nausea or vomiting or diarrhea. She does report mild swelling in her feet. She denies any numbness or tingling. Will continue with management in ICU overnight. She is currently hemodynamically stable. If patient is stable throughout the night is likely she will be able to be downgraded in the morning. 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 sulfamethoxazole Allergy Mild RASH Verified 10/28/21 10:26 trimethoprim Allergy Mild RASH Verified 10/28/21 10:26 amlodipine Allergy legs swell Verified 10/28/21 10:26 severe azithromycin Allergy Diarrhea Verified 11/02/21 11:16 ipratropium Allergy Anaphylaxis Verified 10/28/21 10:26 Sulfa (Sulfonamide Allergy Difficulty Verified 10/28/21 10:26 Antibiotics) Breathing doxycycline AdvReac Unknown GI upset Verified 10/28/21 10:26 cefuroxime [From Ceftin] AdvReac Diarrhea Verified 10/28/21 10:26 narcotic in general AdvReac Severe Hallucinati Uncoded 10/28/21 10:26 ng Home Medications Medication Instructions Recorded Confirmed Type allopurinol 100 mg tablet 200 mg PO QAM 02/19/19 10/19/21 History atorvastatin 40 mg tablet 40 mg PO PM 02/19/19 10/19/21 History azelastine 137 mcg (0.1 %) nasal 1 spray INTRANASAL BID 02/19/19 10/19/21 History spray aerosol budesonide 0.5 mg/2 mL suspension 0.5 mg INHALATION BID 02/19/19 10/19/21 History for nebulization carvedilol 25 mg tablet (Coreg) 12.5 mg PO BID 02/19/19 10/19/21 History cholecalciferol (vitamin D3) 25 2,000 unit PO 3XWK 02/19/19 10/19/21 History mcg (1,000 unit) capsule (Vitamin D3) escitalopram oxalate 10 mg tablet 5 mg PO QAM 02/19/19 10/19/21 History (Lexapro) fexofenadine 180 mg tablet 180 mg PO QAM 02/19/19 10/19/21 History levalbuterol HCl 1.25 mg/3 mL 1.25 mg INHALATION QID 02/19/19 10/19/21 History solution for nebulization (Xopenex) montelukast 10 mg tablet 10 mg PO PM 02/19/19 10/19/21 History nitroglycerin 0.4 mg sublingual 0.4 mg BUCCAL .UD PRN 02/19/19 10/19/21 History tablet (Nitrostat) pantoprazole 40 mg tablet,delayed 40 mg PO BID 02/19/19 10/19/21 History release (Protonix) sodium chloride 0.65 % nasal spray 2 spray INTRANASAL QID PRN 02/19/19 10/19/21 History aerosol (Saline Nasal) spironolactone 25 mg tablet 12.5 mg PO QAM 02/19/19 10/19/21 History tamoxifen 20 mg tablet 20 mg PO . ON HOLD 02/19/19 10/19/21 History triamcinolone acetonide 55 mcg 1 spray INTRANASAL BID 02/19/19 10/19/21 History nasal spray aerosol (Nasacort) isosorbide mononitrate 60 mg 60 mg PO HS 11/15/20 10/19/21 History tablet,extended release 24 hr levalbuterol tartrate 45 1 puff INHALATION Q4H PRN 11/15/20 10/19/21 History mcg/actuation aerosol inhaler acetaminophen 500 mg tablet 500 mg PO TID 05/19/21 10/19/21 History magnesium oxide 400 mg (241.3 mg 800 mg PO QAM 05/19/21 10/19/21 History magnesium) tablet sucralfate 100 mg/mL oral 10 ml PO TID 05/19/21 10/19/21 History suspension famotidine 20 mg tablet 20 mg PO BID 05/28/21 10/19/21 History benzonatate 100 mg capsule 100 mg PO TID PRN 09/24/21 10/19/21 History calcitriol 0.25 mcg capsule 0.25 mcg PO 3XWK 09/24/21 10/19/21 History clotrimazole-betamethasone 1 1 applic TOPICAL BID PRN 09/24/21 10/19/21 History %-0.05 % topical cream guaifenesin 600 mg tablet, 600 mg PO BID 09/24/21 10/19/21 History extended release 12 hr (Mucinex) hydralazine 10 mg tablet 10 mg PO TID PRN 09/24/21 10/19/21 History iron,carbonyl 65 mg-vitamin C 125 1 tab PO BID 09/24/21 10/19/21 History mg tablet,delayed release (Vitron-C) lidocaine HCl 2 % mucosal solution 1 applic TOPICAL DAILY PRN 09/24/21 10/19/21 History budesonide-formoterol HFA 160 2 puff INHALATION BID 10/19/21 10/19/21 History mcg-4.5 mcg/actuation aerosol inhaler (Symbicort) cefdinir 300 mg capsule 300 mg PO QAM 10/19/21 10/19/21 History docusate sodium 100 mg capsule 200 mg PO BID 10/19/21 10/19/21 History furosemide 40 mg tablet 60 mg PO UD 10/19/21 10/19/21 History levothyroxine 200 mcg tablet 200 mcg PO DAILYBB 10/19/21 10/19/21 History nystatin 100,000 unit/gram topical 1 applic TOPICAL BID PRN 10/19/21 10/19/21 History powder nystatin 100,000 unit/mL oral 10 ml BUCCAL BID 10/19/21 10/19/21 History suspension potassium chloride 10 mEq 10 meq PO UD 10/19/21 10/19/21 History tablet,extended release prednisone 5 mg tablet 5 mg PO DAILY 10/19/21 10/19/21 History warfarin 2 mg tablet 1 mg PO . CURRENTLY ON HOLD 10/19/21 10/19/21 History Patient History Medical History Anemia recent hospitalization at [facility] 2 weeks ago Anticoagulated on Coumadin Anxiety Asthma, moderate persistent not well controlled, frequent nebulizer use Chronic diastolic CHF (congestive heart failure) follows with Dr. Benjamin CKD (chronic kidney disease), stage III follows with Dr. Hernandez COPD (chronic obstructive pulmonary disease) not well controlled Dyslipidemia GERD (gastroesophageal reflux disease) GI bleed recent hospitalization at [facility] > 1 unit blood Gout Hard of hearing bilat aides Heart disease "nonobstructive disease per cath 2011" Hiatal hernia History of breast cancer x2 > > no chemo just tamxifen for group home use, no surgeries Hypothyroidism (acquired) "s/p thyroidectomy and radioiodine therapy for cancer treatment" Hysterectomy (02/22/13) IBS (irritable bowel syndrome) Labile hypertension Osteoporosis (02/22/13) PAF (paroxysmal atrial fibrillation) hx of 10 yrs ago > no longer on ASA or Coumadin as of 2 weeks ago 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 Father , Passed age 50 of [place] No problems noted. Brother Lung fibrosis Brother , Passed age 63 of allergic reaction to antibiotics No problems noted. Sister , Passed age 83 of "electrolyte disturbances" DCIS (ductal carcinoma in situ) Sister , Passed age 84 from post surgical complications No problems noted. Sister No problems noted. Daughter No problems noted. Daughter No problems noted. Son No problems noted. 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 [employer] Other Information That Helps Us Care for You: No Feels Safe at Home: Yes Safety Concerns: Feels Safe At This Time caffeine: No during the past year weight has: remained stable Assistive Devices: Oxygen - Continuous and Walker Review of Systems Review of Systems: All systems reviewed & are unremarkable except as noted in HPI & below Physical Exam Constitutional: cooperative and comfortable; no acute distress Eyes: PERRL, conjunctivae normal, anicteric sclerae ENMT: external ear and nose normal, oropharynx normal Neck: trachea midline, no thyromegaly Respiratory: normal respiratory effort, lungs clear to auscultation Cardiovascular: RRR, no murmur, no edema Heart Sounds: normal S1 and normal S2 Extremities: normal capillary refill and + edema (+1 edema bilateral lower extremity) Gastrointestinal (Abdomen): abdomen soft, nondistended. Bowel sounds auscultated all 4 quadrants. Surgical incision well approximated. colostomy and FRANCES drain present. serosanguinous drainage Musculoskeletal: no cyanosis or clubbing, extremities motor strength 5/5 Skin: no rashes, warm and dry Neurologic: PERRL, EOMI, accommodation nl, no face palsy, no dysarthria Psychiatric: A+Ox3, euthymic affect Results & Data Results & Data ([place]) Vital Signs (Past 12 Hours) Vital Signs Temp Pulse Pulse Pulse Resp BP Pulse Ox 11/02/21 19:14 62 20 90 11/02/21 18:10 61 15 166/56 H 93 11/02/21 18:00 36.5 C 60 15 166/67 H 95 11/02/21 17:50 62 18 160/50 H 92 11/02/21 17:40 63 18 162/53 H 95 11/02/21 17:30 72 18 165/81 H 91 11/02/21 17:20 78 18 159/77 H 93 11/02/21 17:10 73 18 179/66 H 93 11/02/21 17:00 74 20 173/87 H 95 11/02/21 16:54 36.2 C L 79 18 150/87 H 99 11/02/21 11:07 74 17 100 11/02/21 10:54 36.7 C 65 20 160/82 H 100 Coding Level of Care Code 76956 Inpt Consult Level 3 Diagnoses Colonic mass K63.89 Anemia D64.9 GI bleeding K92.2 Generalized weakness R53.1 Acute UTI N39.0 Cellulitis of arm, right L03.113 Chronic diastolic (congestive) heart failure I50.32 DVT, bilateral lower limbs I82.403 Bilateral pulmonary embolism I26.99 Hypoxia R09.02 CAD (coronary artery disease) I25.10 GI bleed K92.2 IBS (irritable bowel syndrome) K58.9 History of breast cancer Z85.3 CKD (chronic kidney disease), stage III N18.32 Chronic kidney disease stage 3 subtype: stage 3b (GFR 30-44) H/O total thyroidectomy E89.0 GERD (gastroesophageal reflux disease) K21.9 PAF (paroxysmal atrial fibrillation) I48.0 Anticoagulated on Coumadin Z51.81; Z79.01 (1) CKD (chronic kidney disease), stage III Chronic kidney disease stage 3 subtype: stage 3b (GFR 30-44) Qualified Code(s): N18.32 - Chronic kidney disease, stage 3b
[2021-11-03] MEDS: cefOXitin 2,000 MG in DEXTROSE 5% 50 ML IV SCH ×3 (02:22→14:35)
[2021-11-03] MEDS: MoRPHine SULFATE 2 MG/ML CARP IV PRN ×2 (02:22→13:18)
[2021-11-03] MEDS: ACETAMINOPHEN 1,000 MG/100 ML VIAL IV SCH ×3 (03:12→19:51)
[2021-11-03 04:39] LABS: Hemoglobin 10.2 g/dL (12.0-16.0); Mean Corpuscular Hemoglobin 29.7 pg (25-34); Mean Corpuscular Hgb Conc 31.9 g/dL (32-36); Mean Platelet Volume 9.5 fL (7.4-10.4); Platelet Count 361 K/uL (130-400); RDW Coefficient of Variation 16.6 % (11.5-14.5); RDW Standard Deviation 56.1 fL (36.4-46.3); Red Blood Count 3.44 M/uL (4.2-5.4); White Blood Count 18.78 K/uL (4.8-10.8)
[2021-11-03 05:00] LABS: Calcium 8.9 mg/dl (8.5-10.1); Est GFR (African American) 52.1 ml/min; Potassium 4.5 mmol/L (3.5-5.1)
[2021-11-03] MEDS: LACTATED RINGER'S 1,000 ML IV SCH ×2 (05:12→19:53)
[2021-11-03] MEDS: LEVOTHYROXINE SODIUM 200 MCG TABLET PO SCH (06:23)
[2021-11-03] MEDS: carvediloL 12.5 MG TAB PO SCH ×2 (06:23→16:37)
[2021-11-03] MEDS: BUDESONIDE 0.5 MG/2 ML VIAL (PULMICORT) INH SCH ×2 (06:54→19:29)
[2021-11-03] MEDS: LEVALBUTEROL HCL 1.25 MG/3 ML NEB INH SCH ×4 (06:54→19:29)
--- NOTE | 2021-11-03 08:07 | Critical Care Progress Note ---
Date of Service November 03, 2021 Assessment & Plan (1) Colonic mass: Plan: Impression: 89-year-old female with extensive past medical history presents to the ICU postop for colonic tumor resection and colectomy and IVC filter placement. Neuro - [facility]: Negative Anxiety and depressioncontinue Lexapro Generalized weaknesslikely multifactorial in the setting of UTI, abdominal surgery, along with other comorbidities -Stable, monitor for now and treat underlying factors Cardiac - Diastolic heart failurecontinue Imdur. Hold on Lasix following surgery for now -Appears euvolemic on exam. Monitor Paroxysmal A. fibunable to anticoagulate at this time due to recent surgery -Currently normal sinus rhythm on monitor -Continuous monitoring on telemetry Respiratory - Acute on chronic hypoxic respiratory failure- secondary to bilateral pulmonary embolisms. History of COPD requiring home oxygen. Currently on 3 L nasal cannula and stable. Chest CTA from 09/24/2021 revealed segmental pulmonary emboli in the left lower lobe and right lower lobe. -IVC filter inserted as patient has bilateral DVTs and unable to anticoagulate due to bleeding/surgery -Continue budesonide, Xopenex, Singulair, prednisone, Breo Ellipta -Continue pulse ox monitoring GI - Colonic massstatus post sigmoidectomy with colostomy with FRANCES drains. Management per general surgery -Suspicious for malignancy. Follow-up cytology -N.p.o. -Continue with PPI RENAL/LYTES - CKDcreatinine stable. 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 Continue with Synthroid HEME - Acute GI bleedanticoagulation discontinued. Likely from colonic mass which has been resected. -No active signs of bleeding. H&H stable. No indication for transfusion at this time. Trend -Fluid collection noted in the right upper arm measuring 15 by 2 x 3 x 3 cm concerning for possible resolving hematoma on vascular ultrasound noted from 10/26/2021. ID - Patient with complicated UTI and cellulitis of the right upper arm. Completed Cipro and Zosyn earlier this hospital stay LINES/IV ACCESS - Peripheral IVs DVT PROPHYLAXIS - Bilateral DVTs hold anticoagulation in the setting of bleed/surgery. IVC filter inserted Patient stable for downgrade out of the ICU. (2) Anemia: (3) GI bleeding: (4) Generalized weakness: (5) Acute UTI: (6) Cellulitis of arm, right: (7) Chronic diastolic (congestive) heart failure: (8) DVT, bilateral lower limbs: (9) Bilateral pulmonary embolism: (10) Hypoxia: (11) CAD (coronary artery disease): (12) IBS (irritable bowel syndrome): (13) History of breast cancer: (14) CKD (chronic kidney disease), stage III: (15) H/O total thyroidectomy: (16) GERD (gastroesophageal reflux disease): (17) PAF (paroxysmal atrial fibrillation): (18) Anticoagulated on Coumadin: Admission and Anticipated Discharge Date Admission Date: October 20, 2021 Subjective Patient seen and examined. Remains hemodynamically stable. Complaining of dry mouth and some mild tenderness to palpation in her abdomen. Review of Systems Review of Systems: All systems reviewed & are unremarkable except as noted in HPI & below Physical Exam Constitutional: cooperative and comfortable; no acute distress Eyes: PERRL, conjunctivae normal, anicteric sclerae ENMT: external ear and nose normal, oropharynx normal Neck: trachea midline, no thyromegaly Respiratory: normal respiratory effort, lungs clear to auscultation Cardiovascular: RRR, no murmur, no edema Heart Sounds: normal S1 and normal S2 Extremities: normal capillary refill and + edema (+1 edema bilateral lower extremity) Gastrointestinal (Abdomen): abdomen soft, nondistended. Bowel sounds auscultated all 4 quadrants. Surgical incision well approximated. colostomy and FRANCES drain present. serosanguinous drainage Musculoskeletal: no cyanosis or clubbing, extremities motor strength 5/5 Skin: no rashes, warm and dry Neurologic: PERRL, EOMI, accommodation nl, no face palsy, no dysarthria Psychiatric: A+Ox3, euthymic affect Results & Data Results & Data ([facility]) Vital Signs (Past 12 Hours) Vital Signs Pulse Pulse Resp BP Pulse Ox 11/03/21 07:00 87 15 141/82 H 99 11/03/21 06:56 73 17 94 11/03/21 06:01 85 17 140/61 11/03/21 05:02 89 15 159/70 H 96 11/03/21 05:00 83 16 93 11/03/21 04:30 70 17 91 11/03/21 04:01 75 15 164/74 H 96 11/03/21 04:00 86 15 95 11/03/21 03:30 79 20 94 11/03/21 03:01 82 18 151/79 H 94 11/03/21 03:00 92 H 24 95 11/03/21 02:30 77 13 94 11/03/21 02:01 89 18 156/85 H 95 11/03/21 02:00 90 27 H 94 11/03/21 01:30 68 18 95 11/03/21 01:01 84 16 146/68 H 95 11/03/21 01:00 95 H 15 89 L 11/03/21 00:30 69 14 95 11/03/21 00:01 81 14 153/55 H 91 11/03/21 00:00 75 14 90 11/02/21 23:30 77 22 98 11/02/21 23:01 74 28 H 142/120 H 97 11/02/21 23:00 91 H 28 H 95 11/02/21 22:30 62 19 98 11/02/21 22:01 83 15 152/120 H 96 11/02/21 22:00 94 H 14 94 11/02/21 21:30 79 14 96 11/02/21 21:02 89 32 H 150/76 H 97 11/02/21 21:00 92 H 26 H 91 11/02/21 20:31 81 17 167/67 H 98 11/02/21 20:30 90 20 96 Coding Level of Care Code 25320 Subseq Hosp Care Lvl 2 Diagnoses Colonic mass K63.89 Anemia D64.9 GI bleeding K92.2 Generalized weakness R53.1 Acute UTI N39.0 Cellulitis of arm, right L03.113 Chronic diastolic (congestive) heart failure I50.32 DVT, bilateral lower limbs I82.403 Bilateral pulmonary embolism I26.99 Hypoxia R09.02 CAD (coronary artery disease) I25.10 IBS (irritable bowel syndrome) K58.9 History of breast cancer Z85.3 CKD (chronic kidney disease), stage III N18.32 Chronic kidney disease stage 3 subtype: stage 3b (GFR 30-44) H/O total thyroidectomy E89.0 GERD (gastroesophageal reflux disease) K21.9 PAF (paroxysmal atrial fibrillation) I48.0 Anticoagulated on Coumadin Z51.81; Z79.01 (1) CKD (chronic kidney disease), stage III Chronic kidney disease stage 3 subtype: stage 3b (GFR 30-44) Qualified Code(s): N18.32 - Chronic kidney disease, stage 3b
--- NOTE | 2021-11-03 08:33 | Surgery Progress Note ---
Date of Service November 03, 2021 Assessment & Plan (1) Colonic mass: Plan: Postoperative day #1. Doing well from a surgical perspective. Okay with me to transfer back to the regular floor when okay with the primary service. I would consider limiting blood pressure evaluations or stopping them altogether unless there is a change in her clinical status necessitating blood pressure. We will allow her to start some clear liquids today and see how she does with them. Admission and Anticipated Discharge Date Admission Date: October 20, 2021 Subjective pt seen. Overall doing well. Her main issue is pain with blood pressure cuffs. She does have some abdominal pain but it is manageable. She is awake and extubated. No nausea or vomiting. Physical Exam Physical Exam: Alert and oriented. Mild distress from the blood pressure cuff. Abdomen is soft. Stoma viable with no output yet. Incisions are clean dry and intact. Results & Data ([facility]) Vital Signs (Past 12 Hours) Vital Signs Pulse Pulse Resp BP Pulse Ox 11/03/21 07:00 87 15 141/82 H 99 11/03/21 06:56 73 17 94 11/03/21 06:01 85 17 140/61 11/03/21 05:02 89 15 159/70 H 96 11/03/21 05:00 83 16 93 11/03/21 04:30 70 17 91 11/03/21 04:01 75 15 164/74 H 96 11/03/21 04:00 86 15 95 11/03/21 03:30 79 20 94 11/03/21 03:01 82 18 151/79 H 94 11/03/21 03:00 92 H 24 95 11/03/21 02:30 77 13 94 11/03/21 02:01 89 18 156/85 H 95 11/03/21 02:00 90 27 H 94 11/03/21 01:30 68 18 95 11/03/21 01:01 84 16 146/68 H 95 11/03/21 01:00 95 H 15 89 L 11/03/21 00:30 69 14 95 11/03/21 00:01 81 14 153/55 H 91 11/03/21 00:00 75 14 90 11/02/21 23:30 77 22 98 11/02/21 23:01 74 28 H 142/120 H 97 11/02/21 23:00 91 H 28 H 95 11/02/21 22:30 62 19 98 11/02/21 22:01 83 15 152/120 H 96 11/02/21 22:00 94 H 14 94 11/02/21 21:30 79 14 96 11/02/21 21:02 89 32 H 150/76 H 97 11/02/21 21:00 92 H 26 H 91 PG Care Time/CCT Total # of Minutes Spent Total Time Spent with Patient: Total time spent is greater than 50% in coordination of care (as documented) at patient's floor/unit and/or counseling patient: Coding Level of Care Code None Diagnoses Colonic mass K63.89
[2021-11-03] MEDS: FAMOTIDINE 20 MG TAB PO SCH (08:53)
[2021-11-03] MEDS: FEXOFENADINE HCL 180 MG TAB PO SCH (08:55)
[2021-11-03] MEDS: ESCITALOPRAM OXALATE 10 MG TAB PO SCH (08:57)
[2021-11-03] MEDS: PANTOprazole 40 MG in SYRINGE 0 ML IV SCH ×2 (09:01→20:11)
[2021-11-03] MEDS: predniSONE 2.5 MG TAB PO SCH (09:02)
[2021-11-03] MEDS: SUCRALFATE 1 GM/10 ML UDC PO SCH ×3 (09:02→20:11)
[2021-11-03] MEDS: AZELASTINE HCL 0.1% NASAL 200 SPRAYS/27,400 MCG BTL SCH ×2 (09:38→20:12)
[2021-11-03] MEDS: FLUTICASONE/VILANTEROL 200/25MCG 14 PUFFS/INHALER INH SCH (09:40)
[2021-11-03] MEDS: TRIAMCINOLONE ACET NASAL SPRAY 10.8ML BTL SCH ×2 (09:46→20:12)
--- NOTE | 2021-11-03 18:47 | Hospitalist Progress Note ---
Date of Service November 03, 2021 Assessment & Plan (1) Generalized weakness: Plan: Generalized weakness Likely multifactorial Complicated UTI: Multidrug-resistant Proteus on outpatient urine culture Traumatic RUE cellulitis Blood Cultures: Negative to date Outpatient Urine Cx from 10/18/21: Proteus mirabilis sensitive to cefepime, ciprofloxacin, gentamicin, meropenem, Zosyn, Bactrim. Resistant to ampicillin, Unasyn, cefazolin, cefoxitin, ceftriaxone. Stool for C. difficile negative Completed 5 day course of Zosyn>>Cipro--Completed course Continue Zosyn>>> transitioned to cefdinir for cellulitis>>Completed the course Appreciate orthopedics input. No I&D needed as per Ortho. 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 Biopsied. Tattooed. Diverticulosis in the sigmoid colon. S/P EGD:Normal esophagus. Normal examined duodenum. Small hiatal hernia. No specimens collected. Pathology Pending Melena/Rectal Bleeding likely due to Colon mass Hold IV Heparin, Coumadin INR subtherapeutic : 1.1 Avoid anticoagulants Continue IV PPI Type and cross Transfuse as needed Monitor H&H Appreciate GI Input Appreciate Surgery Input Offered to transfer to Tertiary hospital given lack to availability of Vascular surgery till Monday and need for IVC filter placement given PE/DVT and bleeding issues. Patient/Family prefers not be transferred and would like to have the IVC filter placed at [facility] on Monday Vascular Surgery Consulted Planned for IVC filter placement and Laparoscopic resection of colon mass today NPO currently Right Upper Extremity Hematoma: RUE USD:Complex 15.2 x 3 x 3 cm right upper arm fluid collection. This favors a resolving hematoma, possibly intramuscular. Monitor H&H Consider reevaluation by Ortho if needed Chronic hypoxemic respiratory failure on home O2 Chronic diastolic heart failure Continue home diuretics as able Monitor volume status Appreciate Cardiology Input Held diuretics as planned for surgery Diarrhea Stool for C. 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 Supratherapeutic INR 3.5>>2.2>1.1 Held Coumadin Monitor INR Plan for IVC filter as anticoagulation Risks Vs Benefits discussed with patient/family given inability to restart anticoagulation currently and risk for clotting/bleeding Patient/Family understands and agrees with current management Anticoagulation held as planned for surgery Hypertension Continue home meds Monitor Hyperlipidemia on statin Bronchial asthma Ongoing steroid Rx for last couple of months Breast cancer S/P surgery, tamoxifen on hold following recent confinement for PE DVT Follows with [facility] oncologist Thyroid cancer S/P surgery Post surgical hypothyroidism chronic, stable. Continue levothyroxine Abnormal LFTs CT ABD:The liver is homogeneous in attenuation on these limited noncontrast images. There is again cholelithiasis with no CT evidence for acute cholecystitis. Avoid hepatotoxic agents as able LFTs trending down DM II New Diagnosis H/O Prediabetes Likely worsened due to setoids HbA1C:6.8 No tight glycemic control needed given advanced age Monitor BGs off meds CKD Stage III Cr at baseline Monitor renal function Avoid nephrotoxic agents as able Acute on Chronic anemia Multifactorial: CKD, Acute blood loss anemia, Iron deficeicny Hb at baseline S/P 2 unit PRBCs Continue Iron supplements Ambulatory dysfunction/functional disability Fall precautions PT/OT DVT Px: Coumadin/lovenox--Held for surgery SCDs Code Status Full Code Disposition PT/OT prior to discharge (2) Cellulitis of arm, right: (3) Supratherapeutic INR: (4) Acute UTI: Admission and Anticipated Discharge Date Admission Date: October 20, 2021 Results & Data Results & Data ([facility]) Vital Signs (Past 12 Hours) Vital Signs Temp Pulse Pulse Resp BP BP Pulse Ox 11/03/21 11:00 86 22 149/80 H 98 11/03/21 10:37 81 17 99 11/03/21 10:15 86 18 153/69 H 99 11/03/21 09:15 90 20 152/68 H 92 11/03/21 08:10 36.9 C 90 70 20 144/54 H 166/89 H 92 11/03/21 07:00 87 15 141/82 H 99 11/03/21 06:56 73 17 94
[2021-11-03] MEDS ORDERED: CALCIUM CARBONATE 500 MG CHEWABLE TAB PO PRN (19:33)
[2021-11-03] MEDS: MONTELUKAST SODIUM 10 MG TABLET PO SCH (20:11)
[2021-11-03] MEDS: ISOSORBIDE MONO EXTENDED REL 60 MG TABCR PO SCH (20:11)
[2021-11-04] MEDS: ACETAMINOPHEN 1,000 MG/100 ML VIAL IV SCH ×3 (03:07→18:46)
[2021-11-04] MEDS: LACTATED RINGER'S 1,000 ML IV SCH ×2 (05:32→14:25)
[2021-11-04] MEDS: carvediloL 12.5 MG TAB PO SCH ×2 (05:33→16:56)
[2021-11-04] MEDS: LEVOTHYROXINE SODIUM 200 MCG TABLET PO SCH (05:33)
[2021-11-04 06:00] LABS: INR 1.1 (0.9-1.1); Prothrombin Time 11.9 Seconds (9.0-12.0)
[2021-11-04] MEDS: LEVALBUTEROL HCL 1.25 MG/3 ML NEB INH SCH ×4 (07:12→19:56)
[2021-11-04] MEDS: BUDESONIDE 0.5 MG/2 ML VIAL (PULMICORT) INH SCH ×2 (07:12→19:56)
[2021-11-04] MEDS: MoRPHine SULFATE 2 MG/ML CARP IV PRN ×2 (07:45→10:37)
[2021-11-04] MEDS: AZELASTINE HCL 0.1% NASAL 200 SPRAYS/27,400 MCG BTL SCH ×2 (08:44→20:18)
[2021-11-04] MEDS: SUCRALFATE 1 GM/10 ML UDC PO SCH ×3 (08:45→20:18)
[2021-11-04 08:48] LABS: Basophils # (auto) 0.02 K/uL (0-0.2); Basophils % (auto) 0.1 %; Eosinophils # (auto) 0.06 K/uL (0-0.5); Eosinophils % (auto) 0.4 %; Hematocrit (blood only) 28.7 % (37-47); Immature Granulocytes # (auto) 0.07 K/uL (0.00-0.02); Immature Granulocytes % (auto) 0.5 %; Lymphocytes # (auto) 1.62 K/uL (1.2-3.4); Lymphocytes % (auto) 12.1 %; Mean Corpuscular Hemoglobin 29.2 pg (25-34); Mean Corpuscular Hgb Conc 31.4 g/dL (32-36); Mean Corpuscular Volume 93.2 fL (80-100); Mean Platelet Volume 9.8 fL (7.4-10.4); Monocytes # (auto) 1.68 K/uL (0.11-0.59); Monocytes % (auto) 12.5 %; Neutrophils # (auto) 9.99 K/uL (1.4-6.5); Neutrophils % (auto) 74.4 %; Platelet Count 328 K/uL (130-400); RDW Coefficient of Variation 16.7 % (11.5-14.5); RDW Standard Deviation 56.4 fL (36.4-46.3); Red Blood Count 3.08 M/uL (4.2-5.4); White Blood Count 13.44 K/uL (4.8-10.8)
[2021-11-04] MEDS: ESCITALOPRAM OXALATE 10 MG TAB PO SCH (08:50)
[2021-11-04] MEDS: predniSONE 2.5 MG TAB PO SCH (08:50)
[2021-11-04] MEDS: FEXOFENADINE HCL 180 MG TAB PO SCH (08:50)
[2021-11-04] MEDS: FAMOTIDINE 20 MG TAB PO SCH (08:51)
[2021-11-04] MEDS: FLUTICASONE/VILANTEROL 200/25MCG 14 PUFFS/INHALER INH SCH (08:51)
[2021-11-04] MEDS: TRIAMCINOLONE ACET NASAL SPRAY 10.8ML BTL SCH ×2 (08:52→20:18)
[2021-11-04] MEDS: PANTOprazole 40 MG in SYRINGE 0 ML IV SCH ×2 (08:54→20:19)
[2021-11-04] MEDS ORDERED: LEVALBUTEROL 1.25MG/0.5ML NEB NEB PRN (12:25)
[2021-11-04] MEDS ORDERED: LEVALBUTEROL 1.25MG/0.5ML NEB NEB STA (12:25)
[2021-11-04] MEDS ORDERED: LEVALBUTEROL HCL 1.25 MG/3 ML NEB NEB STA (12:33)
--- NOTE | 2021-11-04 13:23 | Surgery Progress Note ---
Date of Service November 04, 2021 Assessment & Plan (1) H/O colectomy: Plan: pod 2 doing well will advance to full liquids pt not interested in PT/OT yet transfer to tele add nutritional supplements. Admission and Anticipated Discharge Date Admission Date: October 20, 2021 Subjective pt seen. daughter at bedside. pt doing well .tolerating clears. no n/v. would like to try full liquids. pain manageable. Physical Exam Physical Exam: alert. nad abd: soft. wounds look good. stoma viable with good stool output. FRANCES serous. Results & Data ([facility]) Vital Signs (Past 12 Hours) Vital Signs Temp Pulse Resp BP Pulse Ox 11/04/21 12:43 75 18 97 11/04/21 11:30 36.9 C 78 16 95 11/04/21 10:44 68 18 98 11/04/21 08:30 37.0 C 83 20 156/71 H 98 11/04/21 07:12 64 18 98 11/04/21 04:00 36.6 C 78 17 100 PG Care Time/CCT Total # of Minutes Spent Total Time Spent with Patient: Total time spent is greater than 50% in coordination of care (as documented) at patient's floor/unit and/or counseling patient: Coding Level of Care Code None Diagnoses H/O colectomy Z90.49
--- NOTE | 2021-11-04 19:38 | Hospitalist Progress Note ---
Date of Service November 04, 2021 Assessment & Plan (1) Generalized weakness: Plan: per Dr. Pruett's notes with addendum: Generalized weakness Likely multifactorial Complicated UTI: Multidrug-resistant Proteus on outpatient urine culture Traumatic RUE cellulitis Blood Cultures: Negative to date Outpatient Urine Cx from 10/18/21: Proteus mirabilis sensitive to cefepime, ciprofloxacin, gentamicin, meropenem, Zosyn, Bactrim. Resistant to ampicillin, Unasyn, cefazolin, cefoxitin, ceftriaxone. Stool for C. difficile negative Completed 5 day course of Zosyn>>Cipro--Completed course Continue Zosyn>>> transitioned to cefdinir for cellulitis>>Completed the course Appreciate orthopedics input. No I&D needed as per Ortho. 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 Biopsi ed. Tattooed. Diverticulosis in the sigmoid colon. S/P EGD:Normal esophagus. Normal examined duodenum. Small hiatal hernia. No specimens collected. Pathology Pending Melena/Rectal Bleeding likely due to Colon mass Hold IV Heparin, Coumadin INR subtherapeutic : 1.1 Avoid anticoagulants Continue IV PPI Type and cross Transfuse as needed Monitor H&H Appreciate GI Input Appreciate Surgery Input Offered to transfer to Tertiary hospital given lack to availability of Vascular surgery till Monday and need for IVC filter placement given PE/DVT and bleeding issues. Patient/Family prefers not be transferred and would like to have the IVC filter placed at [facility] on Monday Vascular Surgery Consulted Planned for IVC filter placement and Laparoscopic resection of colon mass today NPO currently 11/04 Positive abdominal tenderness Discussed with Dr. Washington Hold off on CT abdomen Continue to monitor closely Right Upper Extremity Hematoma: RUE USD:Complex 15.2 x 3 x 3 cm right upper arm fluid collection. This favors a resolving hematoma, possibly intramuscular. Hemoglobin decreased from 10-9 No signs of hematoma expansion Monitor closely Chronic hypoxemic respiratory failure Baseline to 3 L by nasal cannula Chronic diastolic heart failure Continue home diuretics as able Monitor volume status Appreciate Cardiology Input --Patient on the dry side at this time -- Hold off on diuretics Diarrhea Stool for C. 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 Supratherapeutic INR 3.5>>2.2>1.1 Held Coumadin Monitor INR Plan for IVC filter as anticoagulation Risks Vs Benefits discussed with patient/family given inability to restart anticoagulation currently and risk for clotting/bleeding Patient/Family understands and agrees with current management Anticoagulation held as planned for surgery --Heart rate controlled -- Coumadin on hold Hypertension -- Continue home meds -- Monitor Hyperlipidemia -- on statin Bronchial asthma Ongoing steroid Rx for last couple of months Breast cancer S/P surgery, tamoxifen on hold following recent confinement for PE DVT Follows with [facility] oncologist Thyroid cancer S/P surgery Post surgical hypothyroidism chronic, stable. Continue levothyroxine Abnormal LFTs CT ABD:The liver is homogeneous in attenuation on these limited noncontrast jamison ges. There is again cholelithiasis with no CT evidence for acute cholecystitis. Avoid hepatotoxic agents as able LFTs trending down DM II New Diagnosis H/O Prediabetes Likely worsened due to setoids HbA1C:6.8 No tight glycemic control needed given advanced age Monitor BGs off meds CKD Stage III Cr at baseline Monitor renal function Avoid nephrotoxic agents as able Acute on Chronic anemia Multifactorial: CKD, Acute blood loss anemia, Iron deficeicny Hb at baseline S/P 2 unit PRBCs Continue Iron supplements Ambulatory dysfunction/functional disability Fall precautions PT/OT DVT Px: Coumadin/lovenox--Held for surgery SCDs Code Status Full Code Disposition PT/OT prior to discharge (2) Cellulitis of arm, right: (3) Supratherapeutic INR: (4) Acute UTI: Admission and Anticipated Discharge Date Admission Date: October 20, 2021 Subjective Follow-up for ESRD, sigmoid mass, status post colectomy,, colostomy placement, etc. Seen resting in bed, on 2 to 3 L of oxygen via nasal cannula Not in distress, but does report severe generalized abdominal discomfort Poor appetite this morning, but no nausea No fevers or chills No shortness of breath, chest pain, palpitations, dizziness No other symptoms Review of Systems Review of Systems: all noted and negative except for above Physical Exam Physical Exam: General- oriented x 2, not in distress, speaks in sentences with no effort or accessory muscle use Eyes- anicteric Neck- no JVD Lungs- clear breath sounds bilaterally, no rales/wheezes Heart- normal rate, regular rhythm; no murmurs Abdomen- normal bowel sounds, nondistended, soft, positive tenderness in all quadrants Colostomy bag: Positive brown soft stools Extremities-mild pretibial edema, no calf tenderness Neuro- alert, oriented x 2; no gross focal neurologic deficits Skin- warm & dry Results & Data Results & Data ([facility]) Vital Signs (Past 12 Hours) Vital Signs Temp Pulse Pulse Pulse Resp BP Pulse Ox 11/04/21 15:33 66 18 99 11/04/21 15:07 76 11/04/21 14:27 64 11/04/21 12:43 75 18 97 11/04/21 11:30 36.9 C 78 16 95 11/04/21 10:44 68 18 98 11/04/21 08:30 37.0 C 83 20 156/71 H 98 all noted and reviewed including below
[2021-11-04] MEDS ORDERED: ACETAMINOPHEN 1000 MG/100 ML IV IV SCH (20:00)
[2021-11-04] MEDS: ISOSORBIDE MONO EXTENDED REL 60 MG TABCR PO SCH (20:18)
[2021-11-04] MEDS: MONTELUKAST SODIUM 10 MG TABLET PO SCH (20:19)
[2021-11-04] MEDS ORDERED: ACETAMINOPHEN 1,000 MG/100 ML VIAL IV SCH (22:00)
[2021-11-04] MEDS ORDERED: ACETAMINOPHEN W/CODEINE #3 1 TAB PO PRN (22:43)
[2021-11-05] MEDS: MoRPHine SULFATE 2 MG/ML CARP IV PRN ×2 (00:19→08:54)
[2021-11-05] MEDS: ACETAMINOPHEN 1,000 MG/100 ML VIAL IV SCH ×3 (02:45→18:39)
[2021-11-05] MEDS: LEVOTHYROXINE SODIUM 200 MCG TABLET PO SCH (05:49)
[2021-11-05] MEDS: carvediloL 12.5 MG TAB PO SCH ×2 (05:49→18:05)
[2021-11-05] MEDS: LEVALBUTEROL HCL 1.25 MG/3 ML NEB INH SCH ×4 (07:09→19:16)
[2021-11-05] MEDS: BUDESONIDE 0.5 MG/2 ML VIAL (PULMICORT) INH SCH ×2 (07:09→19:16)
[2021-11-05 07:13] LABS: INR 1.1 (0.9-1.1); Prothrombin Time 11.8 Seconds (9.0-12.0)
[2021-11-05 07:23] LABS: BUN Creatinine Ratio 21.8 (10-20); Calcium 8.3 mg/dl (8.5-10.1); Creatinine Clr Calc Pharmacy 37.9 ml/min; Est GFR (African American) 68.5 ml/min; Est GFR (Non-African American) 59.1 ml/min; Potassium 3.7 mmol/L (3.5-5.1)
[2021-11-05 07:51] LABS: Basophils # (auto) 0.03 K/uL (0-0.2); Basophils % (auto) 0.3 %; Eosinophils # (auto) 0.14 K/uL (0-0.5); Eosinophils % (auto) 1.2 %; Hematocrit (blood only) 23.5 % (37-47); Hemoglobin 7.4 g/dL (12.0-16.0); Immature Granulocytes % (auto) 0.9 %; Lymphocytes # (auto) 1.56 K/uL (1.2-3.4); Lymphocytes % (auto) 13.6 %; Mean Corpuscular Hemoglobin 28.9 pg (25-34); Mean Corpuscular Hgb Conc 31.5 g/dL (32-36); Mean Corpuscular Volume 91.8 fL (80-100); Mean Platelet Volume 9.4 fL (7.4-10.4); Monocytes # (auto) 1.24 K/uL (0.11-0.59); Monocytes % (auto) 10.8 %; Neutrophils # (auto) 8.37 K/uL (1.4-6.5); Neutrophils % (auto) 73.2 %; Platelet Count 216 K/uL (130-400); RDW Coefficient of Variation 16.3 % (11.5-14.5); Red Blood Count 2.56 M/uL (4.2-5.4); White Blood Count 11.44 K/uL (4.8-10.8)
[2021-11-05 08:14] LABS: Hypochromasia Present
--- NOTE | 2021-11-05 08:37 | Surgery Progress Note ---
Date of Service November 05, 2021 Assessment & Plan (1) H/O colectomy: Plan: Postoperative day #3. She is doing as well as could be expected. I will advance her to regular diet. We can DC her FRANCES drain. I encouraged her to cooperate with physical therapy today. No acute surgical issues. Dr. Hutson covering for the weekend Admission and Anticipated Discharge Date Admission Date: October 20, 2021 Subjective Patient seen with nurse. Overall doing well. She is tolerating a full liquid diet with no problems. She did refuse physical therapy yesterday. Physical Exam Physical Exam: Alert and oriented no acute distress Abdomen is soft with expected incisional tenderness. The stoma is intact with brown stool output. FRANCES with scant output. Serous. Results & Data ([facility]) Vital Signs (Past 12 Hours) Vital Signs Temp Pulse Pulse Pulse Resp BP Pulse Ox 11/05/21 07:32 69 11/05/21 07:19 36.9 C 71 18 169/76 H 96 11/05/21 07:10 68 17 98 11/05/21 04:27 36.3 C L 73 20 169/72 H 96 11/04/21 23:23 71 PG Care Time/CCT Total # of Minutes Spent Total Time Spent with Patient: Total time spent is greater than 50% in coordination of care (as documented) at patient's floor/unit and/or counseling patient: Coding Level of Care Code None Diagnoses H/O colectomy Z90.49
[2021-11-05] MEDS: predniSONE 2.5 MG TAB PO SCH (08:38)
[2021-11-05] MEDS: FAMOTIDINE 20 MG TAB PO SCH (08:38)
[2021-11-05] MEDS: FEXOFENADINE HCL 180 MG TAB PO SCH (08:39)
[2021-11-05] MEDS: ESCITALOPRAM OXALATE 10 MG TAB PO SCH (08:39)
[2021-11-05] MEDS: SUCRALFATE 1 GM/10 ML UDC PO SCH ×3 (08:39→20:44)
[2021-11-05] MEDS: AZELASTINE HCL 0.1% NASAL 200 SPRAYS/27,400 MCG BTL SCH ×2 (08:40→20:37)
[2021-11-05] MEDS: TRIAMCINOLONE ACET NASAL SPRAY 10.8ML BTL SCH ×2 (08:40→20:37)
[2021-11-05] MEDS: FLUTICASONE/VILANTEROL 200/25MCG 14 PUFFS/INHALER INH SCH (08:40)
[2021-11-05] MEDS: PANTOprazole 40 MG in SYRINGE 0 ML IV SCH ×2 (08:54→20:45)
--- NOTE | 2021-11-05 10:55 | Cardiology Progress Note ---
Date of Service November 05, 2021 Assessment & Plan (1) Preop cardiovascular exam: (2) Chronic diastolic (congestive) heart failure: (3) Bilateral pulmonary embolism: (4) Asthma, moderate persistent: (5) H/O colectomy: (6) Chronic diastolic CHF (congestive heart failure): Plan: Patient with complex hospital course. Initially presenting with UTI and cellulitis, treated with antibiotics. Developed GI bleed and diagnosed with sigmoid mass, underwent colectomy and colostomy placement. Also with DVT and IVC filter placement. Coumadin was on hold. History of diastolic HF. Diuretics were on hold post op due to poor PO intake of fluids/hydration Per measurements of I+O's, fluid balance is shifting + and weight trending upwards. Recommend resuming diuretic therapy at this time to keep fluid balance equal. . Continue all other meds. Maintaining NSR. Would not resume Coumadin as her hbg is trending lower this morning as well. Discussed with Dr. Christian and Dr. Montero. Admission and Anticipated Discharge Date Admission Date: October 20, 2021 Supervising Physician Co-Signing Physician Notes Patient seen and examined with Nany Meneses PA-C. Agree with findings and assessment as above. Subjective Cardiology evaluation requested by the family. Paged by Dr. Christian to check on patient. No acute cardiac concerns. Patient resting in bed comfortably. Notes ongoing abdominal pain. Surgery advancing her diet today. She denies chest pain or shortness of breath currently. Maintaining NSR on telemetry. Review of Systems Review of Systems: All systems reviewed & are unremarkable except as noted in HPI & below Physical Exam Constitutional: no acute distress Eyes: PERRL, conjunctivae normal, anicteric sclerae ENMT: external ear and nose normal, oropharynx normal Neck: trachea midline, no thyromegaly Respiratory: normal respiratory effort Auscultation: + diminished lung sounds Cardiovascular: Rate/Rhythm: regular rate and regular rhythm Heart Sounds: + murmur (Grade 1/6 systolic) Extremities: + edema Neurologic: PERRL, EOMI, accommodation nl, no face palsy, no dysarthria Psychiatric: A+Ox3, euthymic affect Results & Data ([facility]) Vital Signs (Past 12 Hours) Vital Signs Temp Pulse Pulse Pulse Resp BP Pulse Ox 11/05/21 10:44 66 18 95 11/05/21 07:32 69 11/05/21 07:19 36.9 C 71 18 169/76 H 96 11/05/21 07:10 68 17 98 11/05/21 04:27 36.3 C L 73 20 169/72 H 96 11/04/21 23:23 71 Laboratory Results Coagulation 11/05/21 Range/Units 06:02 PT 11.8 (9.0-12.0) Seconds CBC 11/05/21 11/05/21 Range/Units 06:02 07:26 WBC Cancelled 11.44 H RBC Cancelled 2.56 L Hgb Cancelled 7.4 L Hct Cancelled 23.5 L Plt Count Cancelled 216 Neut # (Auto) Cancelled 8.37 H Lymph # (Auto) Cancelled 1.56 [place] # (Auto) Cancelled 1.24 H Eos # (Auto) Cancelled 0.14 Baso # (Auto) Cancelled 0.03 Comprehensive Metabolic Panel 11/05/21 Range/Units 06:02 Sodium 136 (136-145) mmol/L Potassium 3.7 (3.5-5.1) mmol/L Chloride 104 (98-107) mmol/L Carbon Dioxide 26 (21-32) mmol/L BUN 19 (6-23) mg/dl Creatinine 0.87 (0.6-1.2) mg/dl Glucose 75 (70-99(Fasting)) mg/dl Calcium 8.3 L (8.5-10.1) mg/dl Intake and Output 11/04/21 11/05/21 11/05/21 22:59 06:59 14:59 Intake Total 1021 / 2459.333 100 / 2459.333 Output Total 410 / 1050 320 / 1050 Balance 611 / 1409.333 -220 / 1409.333 Intake: IV 841 / 1929.333 100 / 1929.333 Acetaminophen 1,000 mg In 100 100 / 200 100 / 200 ml @ 400 mls/hr IV Q8H CHETAN Rx#: [id number] Lactated Ringer's 1,000 ml @ 741 / 1629.333 100 mls/hr IV .Q10H CHETAN Rx#: [id number] Oral 180 / 530 Output: Urine Amount (Catheter) 350 / 870 300 / 870 Floyd/Indwelling 350 / 870 300 / 870 Gastric Drainage 0 / 50 Ileostomy/Colostomy 0 / 50 Drain Output 60 / 80 20 / 80 Abdomen FRANCES 60 / 80 20 / 80 Other: Weight 75.4 kg Weight Measurement Method Built in [facility] Diagnostic Findings Telemetry reviewed: NSR, no atrial fibrillation Medications Administered Current Inpatient Medications Azelastine HCl (Azelastine Hcl 0.1% Nasal 200 Sprays/27,400 Mcg Btl) 1 sprays NA BID [facility] Stop: 11/19/21 08:59 Last Admin: 11/05/21 08:40 Dose: 1 sprays Documented by: Benzonatate (Benzonatate 100 Mg Capsule) 100 mg PO TID PRN PRN Reason: Cough Stop: 11/19/21 02:17 Budesonide (Budesonide 0.5 Mg/2 Ml Vial (Pulmicort)) 0.5 mg INH BIDR [facility] Stop: 11/19/21 06:59 Last Admin: 11/05/21 07:09 Dose: 0.5 mg Documented by: Calcium Carbonate (Calcium Carbonate 500 Mg Chewable Tab) 1,500 mg PO Q6H PRN PRN Reason: Indigestion Stop: 12/03/21 19:32 Carvedilol (Carvedilol 12.5 Mg Tab) 12.5 mg PO BID@0600,1700 [facility] Stop: 11/20/21 16:59 Last Admin: 11/05/21 05:49 Dose: 12.5 mg Documented by: Codeine Sulfate (Codeine Sulfate 30 Mg Tab) 15 mg PO Q4 PRN PRN Reason: Moderate Pain Stop: 11/19/21 09:49 Diclofenac Sodium (Diclofenac Sod 1% Gel 100 Gm Tube) 2 gm EXT BID PRN; Protocol PRN Reason: Pain Stop: 11/24/21 20:59 Last Admin: 10/31/21 08:34 Dose: 2 gm Documented by: Escitalopram Oxalate (Escitalopram Oxalate 10 Mg Tab) 5 mg PO QAM [facility] Stop: 11/19/21 08:59 Last Admin: 11/05/21 08:39 Dose: 5 mg Documented by: Famotidine (Famotidine 20 Mg Tab) 20 mg PO DAILY [facility]; Protocol Stop: 11/25/21 08:59 Last Admin: 11/05/21 08:38 Dose: 20 mg Documented by: Fexofenadine HCl (Fexofenadine Hcl 180 Mg Tab) 180 mg PO QAM [facility] Stop: 11/19/21 08:59 Last Admin: 11/05/21 08:39 Dose: 180 mg Documented by: Fluticasone/Vilanterol (Fluticasone/Vilanterol 200/25mcg 14 Puffs/Inhaler) 1 puffs INH DAILY [facility] Stop: 11/19/21 08:59 Last Admin: 11/05/21 08:40 Dose: 1 puffs Documented by: Furosemide (Furosemide 20 Mg Tab) 60 mg PO BID17 [facility] Stop: 11/20/21 16:59 Last Admin: 10/26/21 08:46 Dose: 60 mg Documented by: Guaifenesin (Guaifenesin 600 Mg Tabcr) 600 mg PO BID [facility] Stop: 11/19/21 08:59 Last Admin: 10/26/21 08:44 Dose: 600 mg Documented by: Hydralazine HCl (Hydralazine 10 Mg Tab) 10 mg PO TID PRN PRN Reason: HypertensionSBP>180orDBP>100 Stop: 11/22/21 08:37 Hydralazine HCl (Hydralazine Hcl 20 Mg/Ml Vial) 5 mg IV Q6H PRN PRN Reason: Hypertension SBP>180orDBP>100 Stop: 11/25/21 13:42 Pantoprazole Sodium 40 mg/ (Syringe) 10 mls @ 5 mls/min IV BID [facility] Stop: 11/28/21 20:59 Last Admin: 11/05/21 08:54 Dose: 5 mls/min Documented by: Acetaminophen (Ofirmev) 1,000 mg in 100 mls @ 400 mls/hr IV Q8H CHET[facility] Stop: 11/07/21 18:59 Last Infusion: 11/05/21 03:00 Dose: Infused Documented by: Isosorbide Mononitrate (Isosorbide [place]eson Extended Rel 60 Mg Tabcr) 60 mg PO HS [facility] Stop: 11/19/21 20:59 Last Admin: 11/04/21 20:18 Dose: 60 mg Documented by: Levalbuterol HCl (Levalbuterol Hcl 1.25 Mg/3 Ml Neb) 1.25 mg INH QIDR [facility]; Protocol Stop: 11/19/21 06:59 Last Admin: 11/05/21 10:43 Dose: 1.25 mg Documented by: Levalbuterol HCl (Levalbuterol Hcl 1.25 Mg/3 Ml Neb) 1.25 mg NEB Q4H PRN; Protocol PRN Reason: sob/wheezing Stop: 12/04/21 12:33 Levothyroxine Sodium (Levothyroxine Sodium 200 Mcg Tablet) 200 mcg PO DAILYBB [facility] Stop: 11/19/21 06:29 Last Admin: 11/05/21 05:49 Dose: 200 mcg Documented by: Melatonin (Melatonin 3 Mg Tab) 3 mg PO HS PRN PRN Reason: Sleep Stop: 11/24/21 22:16 Last Admin: 11/01/21 20:22 Dose: 3 mg Documented by: Montelukast Sodium (Montelukast Sodium 10 Mg Tablet) 10 mg PO PM [facility] Stop: 11/19/21 20:59 Last Admin: 11/04/21 20:19 Dose: 10 mg Documented by: Morphine Sulfate (Morphine Sulfate 2 Mg/Ml Carp) 1 mg IV Q4H PRN PRN Reason: Pain 1-10 Stop: 11/16/21 18:52 Last Admin: 11/05/21 08:54 Dose: 1 mg Documented by: Nystatin (Nystatin Powder 15gm Btl) 1 appln EXT BID PRN PRN Reason: rash Stop: 11/19/21 21:15 Last Admin: 11/01/21 07:49 Dose: 1 appln Documented by: Pantoprazole Sodium (Pantoprazole 40 Mg Tab) 40 mg PO BID [facility] Stop: 11/19/21 08:59 Last Admin: 10/26/21 08:45 Dose: 40 mg Documented by: Prednisone (Prednisone 2.5 Mg Tab) 2.5 mg PO DAILY [facility] Stop: 11/26/21 08:59 Last Admin: 11/05/21 08:38 Dose: 2.5 mg Documented by: Spironolactone (Spironolactone 12.5 Mg Tab) 12.5 mg PO QAM [facility] Stop: 11/23/21 08:59 Last Admin: 10/26/21 08:45 Dose: 12.5 mg Documented by: Sucralfate (Sucralfate 1 Gm/10 Ml Udc) 1 gm PO TID [facility] Stop: 11/24/21 13:59 Last Admin: 11/05/21 08:39 Dose: 1 gm Documented by: Triamcinolone Acetonide (Triamcinolone Acet Nasal [place] 10.8ml Btl) 1 sprays NA BID [facility] Stop: 11/19/21 08:59 Last Admin: 11/05/21 08:40 Dose: 1 sprays Documented by: Warfarin Sodium (Warfarin Sod 3 Mg Tab) 3 mg PO DAILY@1600 [facility] Stop: 11/25/21 15:59
[2021-11-05] MEDS ORDERED: SODIUM CHLORIDE 0.9% 250 ML IV PRN (11:34)
[2021-11-05] MEDS: SPIRONOLACTONE 12.5 MG TAB PO SCH (12:45)
[2021-11-05 13:11] LABS: Albumin Level 2.3 gm/dl (3.4-5.0); Bilirubin,Total 0.4 mg/dl (0.2-1.0); Total Protein 4.9 gm/dl (6.0-8.3)
[2021-11-05] MEDS ORDERED: NON-FORMULARY MEDICATION PO STA (15:04)
[2021-11-05] MEDS: CODEINE SULFATE 30 MG TAB PO PRN (16:55)
--- NOTE | 2021-11-05 20:02 | Hospitalist Progress Note ---
Date of Service November 05, 2021 delayed entry date of service noted above Assessment & Plan (1) Generalized weakness: Plan: per Dr. Pruett's notes with addendum: Generalized weakness Likely multifactorial Complicated UTI: Multidrug-resistant Proteus on outpatient urine culture Traumatic RUE cellulitis Blood Cultures: Negative to date Outpatient Urine Cx from 10/18/21: Proteus mirabilis sensitive to cefepime, ciprofloxacin, gentamicin, meropenem, Zosyn, Bactrim. Resistant to ampicillin, Unasyn, cefazolin, cefoxitin, ceftriaxone. Stool for C. difficile negative Completed 5 day course of Zosyn>>Cipro--Completed course Continue Zosyn>>> transitioned to cefdinir for cellulitis>>Completed the course Appreciate orthopedics input. No I&D needed as per Ortho. 11/05 Afebrile Leukocytosis trending down Colon Mass-adenocarcinoma S/P Sigmoidoscopy:Likely malignant tumor at 15 cm proximal to the anus. Biopsied. Tattooed. Diverticulosis in the sigmoid colon. S/P EGD:Normal esophagus. Normal examined duodenum. Small hiatal hernia. No specimens collected. Pathology Pending Melena/Rectal Bleeding likely due to Colon mass Hold IV Heparin, Coumadin INR subtherapeutic : 1.1 Avoid anticoagulants Continue IV PPI Type and cross Transfuse as needed Monitor H&H Appreciate GI Input Appreciate Surgery Input Offered to transfer to Tertiary hospital given lack to availability of Vascular surgery till Monday and need for IVC filter placement given PE/DVT and bleeding issues. Patient/Family prefers not be transferred and would like to have the IVC filter placed at [facility] on Monday Vascular Surgery Consulted Planned for IVC filter placement and Laparoscopic resection of colon mass today NPO currently 11/05 Abdominal pain improving Remains afebrile, leukocytosis improving Diet being advanced to regular today Monitor closely Right Upper Extremity Hematoma: RUE USD:Complex 15.2 x 3 x 3 cm right upper arm fluid collection. This favors a resolving hematoma, possibly intramuscular. Hemoglobin decreased from 10-9--> 7.9 Signs of active bleeding No signs of hematoma expansion 1 unit packed RBC ordered Repeat hemoglobin after Acute blood loss anemia likely secondary to surgery, hematoma Acute on Chronic anemia Multifactorial: CKD, Acute blood loss anemia, iron deficiency Management per above Chronic hypoxemic respiratory failure Baseline to 3 L by nasal cannula Chronic diastolic heart failure Continue home diuretics as able Monitor volume status Appreciate Cardiology Input -- Discussed with software quality tester Resume usual Lasix and Aldactone Nonobstructive CAD/TIA Continue home meds 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 Supratherapeutic INR 3.5>>2.2>1.1 Held Coumadin Monitor INR Plan for IVC filter as anticoagulation Risks Vs Benefits discussed with patient/family given inability to restart anticoagulation currently and risk for clotting/bleeding Patient/Family understands and agrees with current management Anticoagulation held as planned for surgery --Heart rate controlled -- Hold Coumadin for now, monitor hemoglobin Hypertension -- Continue home meds -- Monitor Hyperlipidemia -- on statin Bronchial asthma -- Ongoing steroid Rx for last couple of months -- Discussed with daughter Prednisone being tapered slowly as an outpatient, currently down to 2.5 mg daily for the past 2 to 3 weeks Will taper prednisone to every other day, then continue to wean off Breast cancer S/P surgery, tamoxifen on hold following recent confinement for PE DVT Follows with [facility] oncologist Thyroid cancer S/P surgery Post surgical hypothyroidism chronic, stable. Continue levothyroxine Abnormal LFTs CT ABD:The liver is homogeneous in attenuation on these limited noncontrast images. There is again cholelithiasis with no CT evidence for acute cholecystitis. Avoid hepatotoxic agents as able --Resolved DM II New Diagnosis H/O Prediabetes Likely worsened due to setoids HbA1C:6.8 No tight glycemic control needed given advanced age --Blood glucose within acceptable range CKD Stage III Cr at baseline Monitor renal function Avoid nephrotoxic agents as able Ambulatory dysfunction/functional disability Fall precautions PT/OT DVT Px: Status post IVC filter placement Holding off on anticoagulation in light of anemia, recent surgery Code Status Full Code Disposition PT/OT prior to discharge plan of care discussed with patient and her daughter Janny at the bedside in detail and at length all questions answered They are understanding, agreeable, comfortable with the plan of care (2) Cellulitis of arm, right: (3) Supratherapeutic INR: (4) Acute UTI: Admission and Anticipated Discharge Date Admission Date: October 20, 2021 Subjective Follow-up for status post colectomy, colon mass, etc. Seen resting in bed, comfortable, not in distress, in good spirits On 2 L of oxygen via nasal cannula Patient's daughter at the bedside States she feels fine overall Minimal abdominal discomfort with movement No nausea vomiting, chills, headache, chest pain, shortness of breath No other symptoms Review of Systems Review of Systems: all noted and negative except for above Physical Exam Physical Exam: General- oriented x 3, not in distress, speaks in sentences with no effort or accessory muscle use Eyes- anicteric Neck- no JVD Lungs- clear breath sounds bilaterally, no rales/wheezes Heart- normal rate, regular rhythm; no murmurs Abdomen- normal bowel sounds, nondistended, soft, nontender Dressings in place: No bleeding or discharge FRANCES drain in place: Scant serosanguineous output Extremities-mild pretibial edema, no calf tenderness Left upper extremity: Hematoma on the shoulder area, mild edema on the left forearm, hematoma on the left forearm Neuro- alert, oriented x 3; no gross focal neurologic deficits Skin- warm & dry Results & Data Results & Data ([facility]) Vital Signs (Past 12 Hours) Vital Signs Temp Pulse Pulse Pulse Resp BP Pulse Ox 11/05/21 19:29 81 16 96 11/05/21 19:16 86 18 97 11/05/21 17:57 36.5 C 91 H 16 183/78 H 93 11/05/21 16:57 36.3 C L 90 16 171/87 H 93 11/05/21 16:27 36.7 C 90 16 187/84 H 93 11/05/21 16:12 36.8 C 90 20 147/84 H 98 11/05/21 15:43 36.9 C 90 18 171/75 H 99 11/05/21 14:30 86 18 93 11/05/21 10:44 66 18 95 all noted and reviewed including below
[2021-11-05] MEDS: FUROSEMIDE 20 MG TAB PO SCH (20:38)
[2021-11-05] MEDS: FERROUS SULFATE 325 MG TAB PO SCH (20:38)
[2021-11-05] MEDS: ASCORBIC ACID 500 MG TAB PO SCH (20:39)
[2021-11-05] MEDS: MONTELUKAST SODIUM 10 MG TABLET PO SCH (20:45)
[2021-11-05] MEDS: ISOSORBIDE MONO EXTENDED REL 60 MG TABCR PO SCH (20:45)
[2021-11-06] MEDS: ACETAMINOPHEN 1,000 MG/100 ML VIAL IV SCH ×3 (03:40→18:52)
[2021-11-06] MEDS: carvediloL 12.5 MG TAB PO SCH ×2 (06:05→16:11)
[2021-11-06] MEDS: LEVOTHYROXINE SODIUM 200 MCG TABLET PO SCH (06:05)
[2021-11-06] MEDS: LEVALBUTEROL HCL 1.25 MG/3 ML NEB INH SCH ×4 (07:13→19:25)
[2021-11-06] MEDS: BUDESONIDE 0.5 MG/2 ML VIAL (PULMICORT) INH SCH ×2 (07:13→19:24)
[2021-11-06 07:18] LABS: Basophils # (auto) 0.01 K/uL (0-0.2); Basophils % (auto) 0.1 %; Eosinophils % (auto) 1.1 %; Hematocrit (blood only) 31.1 % (37-47); Hemoglobin 10.1 g/dL (12.0-16.0); Immature Granulocytes # (auto) 0.15 K/uL (0.00-0.02); Immature Granulocytes % (auto) 1.7 %; Lymphocytes # (auto) 1.45 K/uL (1.2-3.4); Lymphocytes % (auto) 16.1 %; Mean Corpuscular Hemoglobin 30.1 pg (25-34); Mean Corpuscular Hgb Conc 32.5 g/dL (32-36); Mean Corpuscular Volume 92.6 fL (80-100); Mean Platelet Volume 9.8 fL (7.4-10.4); Monocytes # (auto) 0.93 K/uL (0.11-0.59); Monocytes % (auto) 10.3 %; Neutrophils # (auto) 6.39 K/uL (1.4-6.5); Neutrophils % (auto) 70.7 %; Platelet Count 275 K/uL (130-400); RDW Coefficient of Variation 15.8 % (11.5-14.5); RDW Standard Deviation 52.9 fL (36.4-46.3); Red Blood Count 3.36 M/uL (4.2-5.4); White Blood Count 9.03 K/uL (4.8-10.8)
[2021-11-06 07:24] LABS: INR 1.1 (0.9-1.1); Prothrombin Time 11.3 Seconds (9.0-12.0)
[2021-11-06 07:45] LABS: Albumin Level 2.3 gm/dl (3.4-5.0); BUN Creatinine Ratio 22.6 (10-20); Calcium 8.4 mg/dl (8.5-10.1); Creatinine Clr Calc Pharmacy 34.4 ml/min; Est GFR (African American) 63.2 ml/min; Est GFR (Non-African American) 54.5 ml/min; Potassium 3.8 mmol/L (3.5-5.1)
--- NOTE | 2021-11-06 08:40 | Surgery Progress Note ---
Date of Service November 06, 2021 Assessment & Plan (1) H/O colectomy: Plan: POD#4 laparoscopic sigmoid colectomy, end colostomy WBC 9, Hbg uptrending with blood transfusions 10.1 (7.4) Patient clinically feeling well + ostomy output, tolerating diet. No n/v PT/OT Admission and Anticipated Discharge Date Admission Date: October 20, 2021 Supervising Physician Co-Signing Physician Notes I personally saw and evaluated the patient with Guerita Milligan PA-C and agree with the assessment and plan. 89-year-old female status post sigmoid colectomy with end colostomy She is doing well and tolerating a diet with ostomy output Her hemoglobin has been stable We will continue to follow Subjective Patient sitting up in bed. Eating breakfast. Denies nausea/vomiting. Pain controlled. Physical Exam Physical Exam: awake, sitting up in bed, eating bfast Gastrointestinal (Abdomen): + ostomy with stool in bag Results & Data ([facility]) Vital Signs (Past 12 Hours) Vital Signs Temp Pulse Pulse Resp BP Pulse Ox 11/06/21 07:13 79 18 97 11/06/21 05:59 36.9 C 81 17 157/77 H 97 11/05/21 23:50 94 H PG Care Time/CCT Total # of Minutes Spent Total Time Spent with Patient: Total time spent is greater than 50% in coordination of care (as documented) at patient's floor/unit and/or counseling patient: Coding Level of Care Code None Diagnoses H/O colectomy Z90.49
[2021-11-06] MEDS: predniSONE 2.5 MG TAB PO SCH (08:45)
[2021-11-06] MEDS: FEXOFENADINE HCL 180 MG TAB PO SCH (08:45)
[2021-11-06] MEDS: SPIRONOLACTONE 12.5 MG TAB PO SCH (08:46)
[2021-11-06] MEDS: FUROSEMIDE 20 MG TAB PO SCH ×2 (08:46→16:11)
[2021-11-06] MEDS: ESCITALOPRAM OXALATE 10 MG TAB PO SCH (08:46)
[2021-11-06] MEDS: TRIAMCINOLONE ACET NASAL SPRAY 10.8ML BTL SCH ×2 (08:47→19:38)
[2021-11-06] MEDS: FAMOTIDINE 20 MG TAB PO SCH (08:47)
[2021-11-06] MEDS: FERROUS SULFATE 325 MG TAB PO SCH ×2 (08:48→19:39)
[2021-11-06] MEDS: AZELASTINE HCL 0.1% NASAL 200 SPRAYS/27,400 MCG BTL SCH ×2 (08:48→19:38)
[2021-11-06] MEDS: SUCRALFATE 1 GM/10 ML UDC PO SCH ×3 (08:49→19:37)
[2021-11-06] MEDS: FLUTICASONE/VILANTEROL 200/25MCG 14 PUFFS/INHALER INH SCH (08:49)
[2021-11-06] MEDS: ASCORBIC ACID 500 MG TAB PO SCH ×2 (08:49→19:36)
[2021-11-06] MEDS: PANTOprazole 40 MG in SYRINGE 0 ML IV SCH ×2 (10:01→19:38)
[2021-11-06] MEDS: CODEINE SULFATE 30 MG TAB PO PRN ×2 (13:05→23:27)
[2021-11-06] MEDS: MoRPHine SULFATE 2 MG/ML CARP IV PRN (14:04)
--- NOTE | 2021-11-06 14:32 | Hospitalist Progress Note ---
Date of Service November 06, 2021 Assessment & Plan (1) Generalized weakness: Plan: per Dr. Pruett's notes with addendum: Generalized weakness Likely multifactorial Complicated UTI: Multidrug-resistant Proteus on outpatient urine culture Traumatic RUE cellulitis Blood Cultures: Negative to date Outpatient Urine Cx from 10/18/21: Proteus mirabilis sensitive to cefepime, ciprofloxacin, gentamicin, meropenem, Zosyn, Bactrim. Resistant to ampicillin, Unasyn, cefazolin, cefoxitin, ceftriaxone. Stool for C. difficile negative Completed 5 day course of Zosyn>>Cipro--Completed course Continue Zosyn>>> transitioned to cefdinir for cellulitis>>Completed the course Appreciate orthopedics input. No I&D needed as per Ortho. 11/06 Afebrile Leukocytosis trending down Colon Mass-adenocarcinoma Status post removal, colectomy, colostomy placement S/P Sigmoidoscopy:Likely malignant tumor at 15 cm proximal to the anus. Biopsied. Tattooed. Diverticulosis in the sigmoid colon. S/P EGD:Normal esophagus. Normal examined duodenum. Small hiatal hernia. No specimens collected. Pathology Pending Melena/Rectal Bleeding likely due to Colon mass Hold IV Heparin, Coumadin INR subtherapeutic : 1.1 Avoid anticoagulants Continue IV PPI Type and cross Transfuse as needed Monitor H&H Appreciate GI Input Appreciate Surgery Input Offered to transfer to Tertiary hospital given lack to availability of Vascular surgery till Monday and need for IVC filter placement given PE/DVT and bleeding issues. Patient/Family prefers not be transferred and would like to have the IVC filter placed at [facility] on Monday Vascular Surgery Consulted Planned for IVC filter placement and Laparoscopic resection of colon mass today NPO currently 11/06 Still having some abdominal pain with movement Continue IV Tylenol, as needed morphine and codeine Remains afebrile, leukocytosis improving Tolerating regular diet Monitor closely PT and OT evaluation At least heparin SQ tomorrow for DVT prophylaxis if hemoglobin remains stable Right Upper Extremity Hematoma: RUE USD:Complex 15.2 x 3 x 3 cm right upper arm fluid collection. This favors a resolving hematoma, possibly intramuscular. Resolved Acute blood loss anemia likely secondary to surgery, hematoma Acute on Chronic anemia Multifactorial: CKD, Acute blood loss anemia, iron deficiency Hemoglobin decreased from 10-9--> 7.9 Iron level 47 No signs of active bleeding No signs of hematoma expansion 1 unit packed RBC ordered Globin now back to 10 Continue iron supplement Monitor closely Chronic hypoxemic respiratory failure Baseline to 3 L by nasal cannula Chronic diastolic heart failure Continue home diuretics as able -- Discussed with cardiology service Resumed usual Lasix and Aldactone Monitor volume status closely Nonobstructive CAD/TIA Continue home meds 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 Supratherapeutic INR 3.5>>2.2>1.1 Held Coumadin Monitor INR Plan for IVC filter as anticoagulation Risks Vs Benefits discussed with patient/family given inability to restart anticoagulation currently and risk for clotting/bleeding Patient/Family understands and agrees with current management Anticoagulation held as planned for surgery --Heart rate controlled -- Hold Coumadin for now, monitor hemoglobin Hypertension -- Continue home meds -- Monitor Hyperlipidemia -- on statin Bronchial asthma -- Ongoing steroid Rx for last couple of months -- Discussed with daughter Prednisone being tapered slowly as an outpatient, currently down to 2.5 mg daily for the past 2 to 3 weeks Will taper prednisone to every other day, then continue to wean off Breast cancer S/P surgery, tamoxifen on hold following recent confinement for PE DVT Follows with [facility] oncologist Thyroid cancer S/P surgery Post surgical hypothyroidism chronic, stable. Continue levothyroxine Abnormal LFTs CT ABD:The liver is homogeneous in attenuation on these limited noncontrast images. There is again cholelithiasis with no CT evidence for acute cholecystitis. Avoid hepatotoxic agents as able --Resolved DM II New Diagnosis H/O Prediabetes Likely worsened due to setoids HbA1C:6.8 No tight glycemic control needed given advanced age --Blood glucose within acceptable range CKD Stage III Cr at baseline Monitor renal function Avoid nephrotoxic agents as able Ambulatory dysfunction/functional disability Fall precautions PT/OT DVT Px: Status post IVC filter placement Holding off on anticoagulation in light of anemia, recent surgery Code Status Full Code Disposition PT/OT prior to discharge plan of care discussed with patient and her daughter Janny at the bedside in detail and at length all questions answered They are understanding, agreeable, comfortable with the plan of care (2) Cellulitis of arm, right: (3) Supratherapeutic INR: (4) Acute UTI: Admission and Anticipated Discharge Date Admission Date: October 20, 2021 Subjective Follow-up for colon mass, adenocarcinoma, GI bleed, status post colectomy and colostomy placement, etc. Patient seen with her daughter Jolie and at the bedside visiting Patient was doing well this morning until she had physical therapy, afterwards, patient developed abdominal discomfort again Seen resting in bed, uncomfortable secondary to pain Denies headache, dizziness, chest pain, shortness of breath Tolerated breakfast well this morning No signs of active bleeding noted No other symptoms Review of Systems Review of Systems: all noted and negative except for above Physical Exam Physical Exam: General- oriented x 3, not in distress, speaks in sentences with no effort or accessory muscle use Eyes- anicteric Neck- no JVD Lungs- clear breath sounds bilaterally, no rales/wheezes Heart- normal rate, regular rhythm; no murmurs Abdomen- normal bowel sounds, nondistended, soft, nontender Extremities-mild pretibial edema, no calf tenderness Left upper extremity: Hematoma on the shoulder area Hematoma on the left forearm Mild edema on left forearm Neuro- alert, oriented x 3; no gross focal neurologic deficits Skin- warm & dry Results & Data Results & Data ([facility]) Vital Signs (Past 12 Hours) Vital Signs Temp Pulse Resp BP Pulse Ox 11/06/21 10:57 74 16 97 11/06/21 07:13 79 18 97 11/06/21 05:59 36.9 C 81 17 157/77 H 97 all noted and reviewed including below
[2021-11-06] MEDS: ISOSORBIDE MONO EXTENDED REL 60 MG TABCR PO SCH (19:37)
[2021-11-06] MEDS: MONTELUKAST SODIUM 10 MG TABLET PO SCH (19:37)
[2021-11-06] MEDS: BENZONATATE 100 MG CAPSULE PO PRN (23:27)
[2021-11-07] MEDS: ACETAMINOPHEN 1,000 MG/100 ML VIAL IV SCH ×3 (03:32→18:57)
[2021-11-07] MEDS: carvediloL 12.5 MG TAB PO SCH ×2 (06:21→17:13)
[2021-11-07] MEDS: LEVOTHYROXINE SODIUM 200 MCG TABLET PO SCH (06:21)
[2021-11-07 06:37] LABS: Basophils # (auto) 0.02 K/uL (0-0.2); Basophils % (auto) 0.2 %; Eosinophils # (auto) 0.14 K/uL (0-0.5); Eosinophils % (auto) 1.3 %; Hematocrit (blood only) 32.3 % (37-47); Hemoglobin 10.3 g/dL (12.0-16.0); Immature Granulocytes # (auto) 0.31 K/uL (0.00-0.02); Immature Granulocytes % (auto) 2.9 %; Lymphocytes # (auto) 1.86 K/uL (1.2-3.4); Lymphocytes % (auto) 17.6 %; Mean Corpuscular Hemoglobin 29.3 pg (25-34); Mean Corpuscular Hgb Conc 31.9 g/dL (32-36); Mean Platelet Volume 9.5 fL (7.4-10.4); Monocytes # (auto) 1.34 K/uL (0.11-0.59); Monocytes % (auto) 12.7 %; Neutrophils # (auto) 6.87 K/uL (1.4-6.5); Neutrophils % (auto) 65.3 %; Platelet Count 300 K/uL (130-400); RDW Coefficient of Variation 15.8 % (11.5-14.5); RDW Standard Deviation 52.9 fL (36.4-46.3); Red Blood Count 3.51 M/uL (4.2-5.4); White Blood Count 10.54 K/uL (4.8-10.8)
[2021-11-07 07:05] LABS: Albumin Level 2.3 gm/dl (3.4-5.0); BUN Creatinine Ratio 29.5 (10-20); Calcium 8.2 mg/dl (8.5-10.1); Creatinine Clr Calc Pharmacy 36.5 ml/min; Est GFR (African American) 67.5 ml/min; Est GFR (Non-African American) 58.3 ml/min; Potassium 3.4 mmol/L (3.5-5.1)
[2021-11-07] MEDS: LEVALBUTEROL HCL 1.25 MG/3 ML NEB INH SCH ×2 (07:21→10:55)
[2021-11-07] MEDS: BUDESONIDE 0.5 MG/2 ML VIAL (PULMICORT) INH SCH ×2 (07:21→19:20)
[2021-11-07] MEDS: POTASSIUM CHLORIDE CRTAB 20 MEQ TABCR PO SCH (09:21)
[2021-11-07] MEDS: ASCORBIC ACID 500 MG TAB PO SCH ×2 (09:21→20:07)
[2021-11-07] MEDS: AZELASTINE HCL 0.1% NASAL 200 SPRAYS/27,400 MCG BTL SCH ×2 (09:22→20:05)
[2021-11-07] MEDS: TRIAMCINOLONE ACET NASAL SPRAY 10.8ML BTL SCH ×2 (09:22→20:04)
[2021-11-07] MEDS: FERROUS SULFATE 325 MG TAB PO SCH ×2 (09:22→20:08)
[2021-11-07] MEDS: FUROSEMIDE 20 MG TAB PO SCH ×2 (09:23→17:12)
[2021-11-07] MEDS: SPIRONOLACTONE 12.5 MG TAB PO SCH (09:23)
[2021-11-07] MEDS: ESCITALOPRAM OXALATE 10 MG TAB PO SCH (09:24)
[2021-11-07] MEDS: FAMOTIDINE 20 MG TAB PO SCH (09:24)
--- NOTE | 2021-11-07 09:24 | Surgery Progress Note ---
Date of Service November 07, 2021 Assessment & Plan (1) H/O colectomy: Plan: POD#5 laparoscopic sigmoid colectomy, end colostomy diet as harjeet Hgb stable PT/OT seen with Dr. Hutson Admission and Anticipated Discharge Date Admission Date: October 20, 2021 Subjective tolerating low fiber diet, has ostomy output, Tylenol for pain Physical Exam Gastrointestinal (Abdomen): Inspection/Auscultation: + abdominal surgical incision (dry); abdomen not distended Percussion/Palpation: abdomen soft Results & Data ([facility]) Vital Signs (Past 12 Hours) Vital Signs Temp Pulse Pulse Resp BP Pulse Ox 11/07/21 08:00 36.9 C 87 20 111/67 98 11/07/21 07:21 78 17 93 PG Care Time/CCT Total # of Minutes Spent Total Time Spent with Patient: Total time spent is greater than 50% in coordination of care (as documented) at patient's floor/unit and/or counseling patient: Coding Level of Care Code None Diagnoses H/O colectomy Z90.49
[2021-11-07] MEDS: SUCRALFATE 1 GM/10 ML UDC PO SCH ×3 (09:25→20:09)
[2021-11-07] MEDS: FLUTICASONE/VILANTEROL 200/25MCG 14 PUFFS/INHALER INH SCH (09:25)
[2021-11-07] MEDS: NYSTATIN POWDER 15GM BTL EXT PRN (09:25)
[2021-11-07] MEDS: FEXOFENADINE HCL 180 MG TAB PO SCH (09:25)
[2021-11-07] MEDS: PANTOprazole 40 MG in SYRINGE 0 ML IV SCH ×2 (09:25→20:10)
[2021-11-07] MEDS ORDERED: Nursing to Pharmacy Communication SCH (11:00)
--- NOTE | 2021-11-07 11:07 | XRay Report ---
XR chest 1V portable CLINICAL HISTORY: cough, r/o pneumonia TECHNIQUE: Single frontal radiograph of the chest was obtained. Comparison: Comparison is made to chest radiograph 10/19/2021 FINDINGS: No lines and tubes are seen. The cardiomediastinal silhouette is normal. The lungs are clear. No evid ence of pleural effusion or pneumothorax. A moderate hiatal hernia is seen. IMPRESSION: No acute abnormalities and in particular no evidence of pneumonia. ACT 112: Negative or not required by law. Electronically signed by: Ayo Simon M.D. 11/07/2021 11:05 AM
[2021-11-07] MEDS ORDERED: CEFEPIME 2,000 MG in SYRINGE 0 ML IV SCH (11:45)
[2021-11-07] MEDS: LEVALBUTEROL 1.25MG/0.5ML NEB NEB SCH ×2 (13:16→19:20)
[2021-11-07] MEDS: CEFEPIME 2,000 MG in SYRINGE 0 ML IV SCH (13:27)
[2021-11-07] MEDS: LACTOBACILLUS ACIDOPHILUS 1 GM PACK PO SCH ×2 (13:27→17:13)
[2021-11-07] MEDS: guaiFENesin 600 MG TABCR PO SCH (18:24)
--- NOTE | 2021-11-07 18:48 | Hospitalist Progress Note ---
Date of Service November 07, 2021 Assessment & Plan (1) Generalized weakness: Plan: per Dr. Pruett's notes with addendum: Generalized weakness Likely multifactorial Complicated UTI: Multidrug-resistant Proteus on outpatient urine culture Traumatic RUE cellulitis Blood Cultures: Negative to date Outpatient Urine Cx from 10/18/21: Proteus mirabilis sensitive to cefepime, ciprofloxacin, gentamicin, meropenem, Zosyn, Bactrim. Resistant to ampicillin, Unasyn, cefazolin, cefoxitin, ceftriaxone. Stool for C. difficile negative Completed 5 day course of Zosyn>>Cipro--Completed course Continue Zosyn>>> transitioned to cefdinir for cellulitis>>Completed the course Appreciate orthopedics input. No I&D needed as per Ortho. 11/07 Afebrile Leukocytosis trending down Productive cough Chest x-ray no pneumonia Sputum culture pending Discussed with patient's daughter Will start cefepime IV for possible acute bronchitis versus early pneumonia Colon Mass-adenocarcinoma Status post removal, colectomy, colostomy placement S/P Sigmoidoscopy:Likely malignant tumor at 15 cm proximal to the anus. Biopsied. Tattooed. Diverticulosis in the sigmoid colon. S/P EGD:Normal esophagus. Normal examined duodenum. Small hiatal hernia. No specimens collected. Pathology Pending Melena/Rectal Bleeding likely due to Colon mass Hold IV Heparin, Coumadin INR subtherapeutic : 1.1 Avoid anticoagulants Continue IV PPI Type and cross Transfuse as needed Monitor H&H Appreciate GI Input Appreciate Surgery Input Offered to transfer to Tertiary hospital given lack to availability of Vascular surgery till Monday and need for IVC filter placement given PE/DVT and bleeding issues. Patient/Family prefers not be transferred and would like to have the IVC filter placed at [facility] on Monday Vascular Surgery Consulted Planned for IVC filter placement and Laparoscopic resection of colon mass today NPO currently 11/07 Abdominal pain improving Continue IV Tylenol, as needed morphine and codeine Remains afebrile, leukocytosis improving Tolerating regular diet Monitor closely PT and OT evaluation At least heparin SQ tomorrow for DVT prophylaxis if hemoglobin remains stable Right Upper Extremity Hematoma: RUE USD:Complex 15.2 x 3 x 3 cm right upper arm fluid collection. This favors a resolving hematoma, possibly intramuscular. Resolved Acute blood loss anemia likely secondary to surgery, hematoma Acute on Chronic anemia Multifactorial: CKD, Acute blood loss anemia, iron deficiency Hemoglobin decreased from 10-9--> 7.9 Iron level 47 No signs of active bleeding No signs of hematoma expansion 1 unit packed RBC ordered Globin now back to 10 Continue iron supplement Monitor closely Chronic hypoxemic respiratory failure Baseline to 3 L by nasal cannula Chronic diastolic heart failure Continue home diuretics as able -- Discussed with cardiology service Resumed usual Lasix and Aldactone Monitor volume status closely Nonobstructive CAD/TIA Continue home meds 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 Supratherapeutic INR 3.5>>2.2>1.1 Held Coumadin Monitor INR Plan for IVC filter as anticoagulation Risks Vs Benefits discussed with patient/family given inability to restart anticoagulation currently and risk for clotting/bleeding Patient/Family understands and agrees with current management Anticoagulation held as planned for surgery --Heart rate controlled -- Hold Coumadin for now, monitor hemoglobin -- Discussed with Dr. Benjamin, recommend Eliquis 2.5 mg twice daily if patient remains stable and active bleeding ruled out Hypertension -- Continue home meds -- Monitor Hyperlipidemia -- on statin Bronchial asthma -- Ongoing steroid Rx for last couple of months -- Discussed with daughter Prednisone being tapered slowly as an outpatient, currently down to 2.5 mg daily for the past 2 to 3 weeks Will taper prednisone to every other day, then continue to wean off Breast cancer S/P surgery, tamoxifen on hold following recent confinement for PE DVT Follows with [facility] oncologist Thyroid cancer S/P surgery Post surgical hypothyroidism chronic, stable. Continue levothyroxine Abnormal LFTs CT ABD:The liver is homogeneous in attenuation on these limited noncontrast images. There is again cholelithiasis with no CT evidence for acute cholecystitis. Avoid hepatotoxic agents as able --Resolved DM II New Diagnosis H/O Prediabetes Likely worsened due to setoids HbA1C:6.8 No tight glycemic control needed given advanced age --Blood glucose within acceptable range CKD Stage III Cr at baseline Monitor renal function Avoid nephrotoxic agents as able Ambulatory dysfunction/functional disability Fall precautions PT/OT DVT Px: Status post IVC filter placement Holding off on anticoagulation in light of anemia, recent surgery Code Status Full Code Disposition PT/OT prior to discharge plan of care discussed with patient and her daughter Janny at the bedside in detail and at length all questions answered They are understanding, agreeable, comfortable with the plan of care (2) Cellulitis of arm, right: (3) Supratherapeutic INR: (4) Acute UTI: Admission and Anticipated Discharge Date Admission Date: October 20, 2021 Subjective Follow-up forcolectomy, etc. Seen with patient's daughter. At the bedside visiting Patient states abdominal pain is better today, tolerating diet well Chief complaint is productive cough, yellow sputum Denies chest pain, fevers or chills, nausea No other symptoms Review of Systems Review of Systems: all noted and negative except for above Physical Exam Physical Exam: General- oriented x 3, not in distress, speaks in sentences with no effort or accessory muscle use Eyes- anicteric Neck- no JVD Lungs-positive crackles on the right base Heart- normal rate, regular rhythm; no murmurs Abdomen- normal bowel sounds, nondistended, soft, nontender Colostomy with brown, soft stools output Extremities-trace pretibial edema, no calf tenderness Neuro- alert, oriented x 3; no gross focal neurologic deficits Skin- warm & dry Results & Data Results & Data ([facility]) Vital Signs (Past 12 Hours) Vital Signs Temp Pulse Pulse Pulse Resp BP Pulse Ox 11/07/21 13:16 79 18 98 11/07/21 10:56 82 17 98 11/07/21 08:00 36.9 C 65 87 20 111/67 98 11/07/21 07:21 78 17 93 all noted and reviewed including below
[2021-11-07] MEDS: MONTELUKAST SODIUM 10 MG TABLET PO SCH (20:07)
[2021-11-07] MEDS: ISOSORBIDE MONO EXTENDED REL 60 MG TABCR PO SCH (20:07)
[2021-11-07] MEDS: BENZONATATE 100 MG CAPSULE PO PRN (20:14)
[2021-11-07] MEDS ORDERED: ACETAMINOPHEN 1000 MG/100 ML IV IV SCH (22:00)
[2021-11-08] MEDS: CEFEPIME 2,000 MG in SYRINGE 0 ML IV SCH ×2 (00:05→20:07)
[2021-11-08] MEDS: LEVALBUTEROL 1.25MG/0.5ML NEB NEB SCH ×4 (00:14→19:07)
[2021-11-08] MEDS: LACTATED RINGER'S 1,000 ML IV SCH (02:06)
[2021-11-08] MEDS: FERROUS SULFATE 325 MG TAB PO SCH ×7 (02:07→20:11)
[2021-11-08] MEDS: ACETAMINOPHEN 1,000 MG/100 ML VIAL IV SCH ×3 (03:14→18:37)
[2021-11-08] MEDS: LEVOTHYROXINE SODIUM 200 MCG TABLET PO SCH (06:14)
[2021-11-08] MEDS: carvediloL 12.5 MG TAB PO SCH ×2 (06:14→16:27)
[2021-11-08] MEDS: NYSTATIN POWDER 15GM BTL EXT PRN (06:17)
[2021-11-08] MEDS: BUDESONIDE 0.5 MG/2 ML VIAL (PULMICORT) INH SCH ×2 (07:19→19:07)
[2021-11-08 08:17] LABS: Hematocrit (blood only) 35.6 % (37-47); Hemoglobin 11.2 g/dL (12.0-16.0); Mean Corpuscular Hemoglobin 29.2 pg (25-34); Mean Corpuscular Hgb Conc 31.5 g/dL (32-36); Mean Corpuscular Volume 92.7 fL (80-100); Mean Platelet Volume 9.5 fL (7.4-10.4); Platelet Count 319 K/uL (130-400); RDW Standard Deviation 54.4 fL (36.4-46.3); Red Blood Count 3.84 M/uL (4.2-5.4); White Blood Count 12.61 K/uL (4.8-10.8)
[2021-11-08 08:36] LABS: Albumin Level 2.5 gm/dl (3.4-5.0); BUN Creatinine Ratio 26.7 (10-20); Calcium 8.6 mg/dl (8.5-10.1); Creatinine Clr Calc Pharmacy 30.5 ml/min; Est GFR (African American) 54.5 ml/min; Potassium 3.5 mmol/L (3.5-5.1)
[2021-11-08] MEDS: SUCRALFATE 1 GM/10 ML UDC PO SCH ×3 (08:44→20:11)
[2021-11-08] MEDS: POTASSIUM CHLORIDE CRTAB 20 MEQ TABCR PO SCH (08:44)
[2021-11-08] MEDS: FUROSEMIDE 20 MG TAB PO SCH ×3 (08:45→16:28)
[2021-11-08] MEDS: guaiFENesin 600 MG TABCR PO SCH ×2 (08:45→16:27)
[2021-11-08] MEDS: FEXOFENADINE HCL 180 MG TAB PO SCH (08:46)
[2021-11-08] MEDS: SPIRONOLACTONE 12.5 MG TAB PO SCH (08:46)
[2021-11-08] MEDS: ASCORBIC ACID 500 MG TAB PO SCH ×2 (08:46→20:10)
[2021-11-08] MEDS: FAMOTIDINE 20 MG TAB PO SCH (08:47)
[2021-11-08] MEDS: ESCITALOPRAM OXALATE 10 MG TAB PO SCH (08:47)
[2021-11-08] MEDS: FLUTICASONE/VILANTEROL 200/25MCG 14 PUFFS/INHALER INH SCH (08:48)
[2021-11-08] MEDS: AZELASTINE HCL 0.1% NASAL 200 SPRAYS/27,400 MCG BTL SCH ×2 (08:48→20:13)
[2021-11-08] MEDS: TRIAMCINOLONE ACET NASAL SPRAY 10.8ML BTL SCH ×2 (08:48→20:13)
[2021-11-08] MEDS: LACTOBACILLUS ACIDOPHILUS 1 GM PACK PO SCH ×3 (08:48→17:39)
[2021-11-08] MEDS: PANTOprazole 40 MG in SYRINGE 0 ML IV SCH ×2 (08:49→20:10)
[2021-11-08 08:56] LABS: Basophils # (auto) 0.06 K/uL (0-0.2); Basophils % (auto) 0.5 %; Eosinophils % (auto) 1.6 %; Immature Granulocytes # (auto) 0.65 K/uL (0.00-0.02); Immature Granulocytes % (auto) 5.2 %; Lymphocytes # (auto) 1.99 K/uL (1.2-3.4); Lymphocytes % (auto) 15.8 %; Monocytes # (auto) 1.65 K/uL (0.11-0.59); Monocytes % (auto) 13.1 %; Neutrophils # (auto) 8.06 K/uL (1.4-6.5); Neutrophils % (auto) 63.8 %
[2021-11-08] MEDS ORDERED: FUROSEMIDE 40 MG/4 ML VIAL IV ONE ×2 (08:58→09:02)
--- NOTE | 2021-11-08 09:34 | Surgery Progress Note ---
Date of Service November 08, 2021 Assessment & Plan (1) H/O colectomy: Plan: Postoperative day 6 and she is doing well. Her main issue at this point time is deconditioning. She is tolerating diet and her stoma is functioning. We will continue to follow while she is in the hospital. I did discuss her pathology report with her and her daughter which we are all pleased about. Admission and Anticipated Discharge Date Admission Date: October 20, 2021 Subjective Patient seen. Sitting in bed eating her breakfast. No new complaints. Only has abdominal pain with certain movements or coughing. Physical Exam Physical Exam: Alert and oriented no acute distress Abdomen is soft. Dressings clean and dry intact. Stoma functioning with soft stool. Results & Data ([facility]) Vital Signs (Past 12 Hours) Vital Signs Temp Pulse Pulse Resp BP Pulse Ox 11/08/21 08:13 36.3 C L 88 16 130/63 95 11/08/21 08:00 75 11/08/21 07:20 93 H 20 93 11/08/21 00:15 86 16 96 PG Care Time/CCT Total # of Minutes Spent Total Time Spent with Patient: Total time spent is greater than 50% in coordination of care (as documented) at patient's floor/unit and/or counseling patient: Coding Level of Care Code None Diagnoses H/O colectomy Z90.49
--- NOTE | 2021-11-08 10:05 | XRay Report ---
XR chest 1V portable CLINICAL HISTORY: Cough TECHNIQUE: Single frontal radiograph of the chest was obtained. Comparison: Comparison is made to chest radiograph 11/07/[address] chest 10/20/2021 FINDINGS: No lines and tubes are seen. Cardiomegaly is noted. The lungs are clear. There is blunting of the lef t costophrenic angle which is unchanged. Partial visualization of a moderate hiatal hernia. IMPRESSION: No acute chest disease and in particular no evidence of pneumonia. Stable blunting of the left costop hrenic angle is favored to represent atelectasis as seen on prior CT. ACT 112: Negative or not required by law. Electronically signed by: Ayo Simon M.D. 11/08/2021 10:04 AM
--- NOTE | 2021-11-08 12:40 | Cardiology Progress Note ---
Date of Service November 08, 2021 Assessment & Plan (1) Chronic diastolic (congestive) heart failure: (2) Bilateral pulmonary embolism: (3) Asthma, moderate persistent: (4) H/O colectomy: Plan: Initially presented with UTI and cellulitis, treated with antibiotics. Recurrent GI bleed. Sigmoid mass, status post colectomy and colostomy placement. Recent DVT and PE, status post IVC filter placement. Diastolic heart failure. Patient received 40 mg IV furosemide this morning. I/O's positive 7.4 L since admission. Patient exams as normovolemic to mildy hypovolemic. + Thrush Nystatin swish and swallow for the oral thrush Additional oral potassium supplementation today Check cultures. Doubt she will be able to return directly to home; recommend rehabilitation stay. ? Reduced dose Eliquis anticoagulation down the road. Admission and Anticipated Discharge Date Admission Date: October 20, 2021 Supervising Physician Co-Signing Physician Notes I have seen and examined the patient. I reviewed the medical record and discussed the case with Mr. Morrison. I agree with the plan as outlined above. I think the patient would benefit from a rehabilitation center. Subjective Patient seen and examined. Chart, medications, and telemetry reviewed. Daughter at bedside, concerned about infection, elevated WBC count. Feels "so so." Currently pain free. Sore throat. Cough productive of clear/white/yellow sputum. No fevers. No chills. Floyd catheter in place. No chest pain. No palpitations. No resting dyspnea. No PND or peripheral edema. No dizziness, near syncope, or syncope. Telemetry: Sinus in the 80's with PAC's, first degree AV block. Review of Systems Review of Systems: Complete Review of Systems is as stated above, negative, or noncontributory. Physical Exam Physical Exam: General: Alert to person and place. Pale. HENT: Normocephalic. Atraumatic. Mouth: + Thrush Eyes: PER. Conjunctiva pink, sclera clear. Neck: No JVD. Heart: Regular at 88 bpm. Lungs: Scattered rhonchi. No wheeze. Abdomen: Not examined. Extremities: No clubbing, cyanosis, or edema. Limited neurological examination is without focal deficits. Results & Data ([facility]) Vital Signs (Past 12 Hours) Vital Signs Temp Pulse Pulse Resp BP Pulse Ox 11/08/21 08:13 36.3 C L 88 16 130/63 95 11/08/21 08:00 75 11/08/21 07:20 93 H 20 93 Laboratory Results Laboratory Results - last 24 hr 11/08/21 11/08/21 07:49 07:49 WBC 12.61 H RBC 3.84 L Hgb 11.2 L Hct 35.6 L MCV 92.7 MCH 29.2 MCHC 31.5 L RDW Std Deviation 54.4 H RDW Coeff of Chrissy 16.0 H Plt Count 319 MPV 9.5 Immature Gran % (Auto) 5.2 Neut % (Auto) 63.8 Lymph % (Auto) 15.8 [place] % (Auto) 13.1 Eos % (Auto) 1.6 Baso % (Auto) 0.5 Neut # (Auto) 8.06 H Lymph # (Auto) 1.99 [place] # (Auto) 1.65 H Eos # (Auto) 0.20 Baso # (Auto) 0.06 Immature Gran # (Auto) 0.65 H Sodium 138 Potassium 3.5 Chloride 97 L Carbon Dioxide 34 H Anion Gap 7 BUN 28 H Creatinine 1.05 Est Cr Clr Drug Dosing 30.5 Est GFR ( Amer) 54.5 Est GFR (Non-Af Amer) 47.0 BUN/Creatinine Ratio 26.7 H Glucose 95 Calcium 8.6 Albumin 2.5 L
[2021-11-08] MEDS ORDERED: POTASSIUM CHLORIDE 10 MEQ TABCR PO ONE (12:44)
[2021-11-08] MEDS ORDERED: NYSTATIN 500,000 UNIT TAB PO SCH (13:00)
[2021-11-08] MEDS: LEVALBUTEROL HCL 1.25 MG/3 ML NEB NEB PRN (13:03)
[2021-11-08] MEDS: NYSTATIN SUSP 500,000 U/5 ML UDC PO SCH ×2 (16:29→20:12)
--- NOTE | 2021-11-08 18:06 | Hospitalist Progress Note ---
Date of Service November 08, 2021 Assessment & Plan (1) Generalized weakness: Plan: per Dr. Pruett's notes with addendum: Generalized weakness Likely multifactorial Complicated UTI: Multidrug-resistant Proteus on outpatient urine culture Traumatic RUE cellulitis Blood Cultures: Negative to date Outpatient Urine Cx from 10/18/21: Proteus mirabilis sensitive to cefepime, ciprofloxacin, gentamicin, meropenem, Zosyn, Bactrim. Resistant to ampicillin, Unasyn, cefazolin, cefoxitin, ceftriaxone. Stool for C. difficile negative Completed 5 day course of Zosyn>>Cipro--Completed course Continue Zosyn>>> transitioned to cefdinir for cellulitis>>Completed the course Appreciate orthopedics input. No I&D needed as per Ortho. 11/08 Afebrile Leukocytosis trending down Productive cough Chest x-ray no pneumonia Sputum culture: normal alin so far Discussed with patient's daughter continue cefepime IV for possible acute bronchitis versus early pneumonia Blood culture: pending Urine culture: negative Colon Mass-adenocarcinoma Status post removal, colectomy, colostomy placement S/P Sigmoidoscopy:Likely malignant tumor at 15 cm proximal to the anus. Biopsied. Tattooed. Diverticulosis in the sigmoid colon. S/P EGD:Normal esophagus. Normal examined duodenum. Small hiatal hernia. No specimens collected. Pathology Pending Melena/Rectal Bleeding likely due to Colon mass Hold IV Heparin, Coumadin INR subtherapeutic : 1.1 Avoid anticoagulants Continue IV PPI Type and cross Transfuse as needed Monitor H&H Appreciate GI Input Appreciate Surgery Input Offered to transfer to Tertiary hospital given lack to availability of Vascular surgery till Monday and need for IVC filter placement given PE/DVT and bleeding issues. Patient/Family prefers not be transferred and would like to have the IVC filter placed at [facility] on Monday Vascular Surgery Consulted Planned for IVC filter placement and Laparoscopic resection of colon mass today NPO currently 11/08 Abdominal pain improving Continue IV Tylenol, as needed morphine and codeine Remains afebrile, leukocytosis improving Tolerating regular diet Monitor closely PT and OT evaluation At least heparin SQ tomorrow for DVT prophylaxis if hemoglobin remains stable Right Upper Extremity Hematoma: RUE USD:Complex 15.2 x 3 x 3 cm right upper arm fluid collection. This favors a resolving hematoma, possibly intramuscular. Resolved Acute blood loss anemia likely secondary to surgery, hematoma Acute on Chronic anemia Multifactorial: CKD, Acute blood loss anemia, iron deficiency Hemoglobin decreased from 10-9--> 7.9 Iron level 47 No signs of active bleeding No signs of hematoma expansion 1 unit packed RBC ordered Globin now back to 10 Continue iron supplement Monitor closely Chronic hypoxemic respiratory failure Baseline to 3 L by nasal cannula Chronic diastolic heart failure Continue home diuretics as able -- Discussed with cardiology service Resumed usual Lasix and Aldactone Monitor volume status closely Nonobstructive CAD/TIA Continue home meds 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 Supratherapeutic INR 3.5>>2.2>1.1 Held Coumadin Monitor INR Plan for IVC filter as anticoagulation Risks Vs Benefits discussed with patient/family given inability to restart anticoagulation currently and risk for clotting/bleeding Patient/Family understands and agrees with current management Anticoagulation held as planned for surgery --Heart rate controlled -- Hold Coumadin for now, monitor hemoglobin -- Discussed with Dr. Benjamin, recommend Eliquis 2.5 mg twice daily if patient remains stable and active bleeding ruled out Hypertension -- Continue home meds -- Monitor Hyperlipidemia -- on statin Bronchial asthma -- Ongoing steroid Rx for last couple of months -- Discussed with daughter Prednisone being tapered slowly as an outpatient, currently down to 2.5 mg daily for the past 2 to 3 weeks Will taper prednisone to every other day, then continue to wean off Breast cancer S/P surgery, tamoxifen on hold following recent confinement for PE DVT Follows with [facility] oncologist Thyroid cancer S/P surgery Post surgical hypothyroidism chronic, stable. Continue levothyroxine Abnormal LFTs CT ABD:The liver is homogeneous in attenuation on these limited noncontrast images. There is again cholelithiasis with no CT evidence for acute cholecystitis. Avoid hepatotoxic agents as able --Resolved DM II New Diagnosis H/O Prediabetes Likely worsened due to setoids HbA1C:6.8 No tight glycemic control needed given advanced age --Blood glucose within acceptable range CKD Stage III Cr at baseline Monitor renal function Avoid nephrotoxic agents as able Ambulatory dysfunction/functional disability Fall precautions PT/OT DVT Px: Status post IVC filter placement Holding off on anticoagulation in light of anemia, recent surgery Code Status Full Code Disposition PT/OT prior to discharge plan of care discussed with patient and her daughter Janny at the bedside in detail and at length all questions answered They are understanding, agreeable, comfortable with the plan of care (2) Cellulitis of arm, right: (3) Supratherapeutic INR: (4) Acute UTI: Admission and Anticipated Discharge Date Admission Date: October 20, 2021 Subjective ff up s/p colectomy, etc seen with her daughter Lianne at bedside visiting patient seen sitting up in bed states she feels "not good" because of her arms hurting from blood draws still has productive cough- mostly clear, able to expectorate well no fever/chills no abdominal pain, tolerating diet well no other symptoms Review of Systems Review of Systems: all noted and negative except for above Physical Exam Physical Exam: General- oriented x 3, not in distress, speaks in sentences with no effort or accessory muscle use Eyes- anicteric Neck- no JVD Lungs- mild crackles on the right mid-base, clear on the left Heart- normal rate, regular rhythm; no murmurs Abdomen- normal bowel sounds, nondistended, soft, nontender Extremities- no pretibial edema, no calf tenderness (+) hematoma on the upper arm and forearm, L Neuro- alert, oriented x 3; no gross focal neurologic deficits Skin- warm & dry Results & Data Results & Data ([facility]) Vital Signs (Past 12 Hours) Vital Signs Temp Pulse Pulse Pulse Resp BP Pulse Ox 11/08/21 15:32 37.4 C 90 18 133/64 94 11/08/21 15:05 80 11/08/21 13:05 68 22 96 11/08/21 08:13 36.3 C L 88 16 130/63 95 11/08/21 08:00 75 11/08/21 07:20 93 H 20 93 all noted and reviewed including below
[2021-11-08] MEDS: ISOSORBIDE MONO EXTENDED REL 60 MG TABCR PO SCH (20:11)
[2021-11-08] MEDS: MONTELUKAST SODIUM 10 MG TABLET PO SCH (20:11)
[2021-11-09] MEDS: LEVALBUTEROL 1.25MG/0.5ML NEB NEB SCH ×4 (00:47→19:29)
[2021-11-09] MEDS: ACETAMINOPHEN 1,000 MG/100 ML VIAL IV SCH ×3 (03:14→18:04)
[2021-11-09] MEDS: carvediloL 12.5 MG TAB PO SCH ×2 (06:13→16:20)
[2021-11-09] MEDS: LEVOTHYROXINE SODIUM 200 MCG TABLET PO SCH (06:13)
[2021-11-09] MEDS: BUDESONIDE 0.5 MG/2 ML VIAL (PULMICORT) INH SCH ×2 (07:02→19:30)
[2021-11-09] MEDS: NYSTATIN SUSP 500,000 U/5 ML UDC PO SCH ×4 (07:35→20:11)
[2021-11-09] MEDS: PANTOprazole 40 MG in SYRINGE 0 ML IV SCH ×2 (07:36→20:21)
[2021-11-09] MEDS: POTASSIUM CHLORIDE CRTAB 20 MEQ TABCR PO SCH (07:36)
[2021-11-09] MEDS: AZELASTINE HCL 0.1% NASAL 200 SPRAYS/27,400 MCG BTL SCH ×2 (07:37→20:06)
[2021-11-09] MEDS: FEXOFENADINE HCL 180 MG TAB PO SCH (07:37)
[2021-11-09] MEDS: TRIAMCINOLONE ACET NASAL SPRAY 10.8ML BTL SCH ×2 (07:37→20:07)
[2021-11-09] MEDS: SPIRONOLACTONE 12.5 MG TAB PO SCH (07:37)
[2021-11-09] MEDS: LACTOBACILLUS ACIDOPHILUS 1 GM PACK PO SCH ×3 (07:37→16:20)
[2021-11-09] MEDS: predniSONE 2.5 MG TAB PO SCH (07:37)
[2021-11-09] MEDS: FAMOTIDINE 20 MG TAB PO SCH (07:38)
[2021-11-09] MEDS: SUCRALFATE 1 GM/10 ML UDC PO SCH ×3 (07:38→20:10)
[2021-11-09] MEDS: FUROSEMIDE 20 MG TAB PO SCH ×2 (07:38→16:20)
[2021-11-09] MEDS: FERROUS SULFATE 325 MG TAB PO SCH ×2 (07:38→20:12)
[2021-11-09] MEDS: ASCORBIC ACID 500 MG TAB PO SCH ×2 (07:39→20:12)
[2021-11-09] MEDS: FLUTICASONE/VILANTEROL 200/25MCG 14 PUFFS/INHALER INH SCH (07:39)
[2021-11-09] MEDS: guaiFENesin 600 MG TABCR PO SCH ×2 (07:40→16:21)
[2021-11-09] MEDS: ESCITALOPRAM OXALATE 10 MG TAB PO SCH (07:41)
[2021-11-09 10:48] LABS: Hematocrit (blood only) 35.6 % (37-47); Hemoglobin 11.1 g/dL (12.0-16.0); Mean Corpuscular Hemoglobin 29.1 pg (25-34); Mean Corpuscular Hgb Conc 31.2 g/dL (32-36); Mean Corpuscular Volume 93.2 fL (80-100); Mean Platelet Volume 9.5 fL (7.4-10.4); Platelet Count 303 K/uL (130-400); RDW Coefficient of Variation 16.3 % (11.5-14.5); RDW Standard Deviation 55.8 fL (36.4-46.3); Red Blood Count 3.82 M/uL (4.2-5.4); White Blood Count 13.45 K/uL (4.8-10.8)
[2021-11-09 11:05] LABS: BUN Creatinine Ratio 25.8 (10-20); Creatinine Clr Calc Pharmacy 23.9 ml/min; Est GFR (African American) 42.9 ml/min; Potassium 3.8 mmol/L (3.5-5.1)
[2021-11-09 11:06] LABS: Albumin Level 2.6 gm/dl (3.4-5.0); Calcium 9.1 mg/dl (8.5-10.1)
[2021-11-09 11:15] LABS: Basophils # (auto) 0.05 K/uL (0-0.2); Basophils % (auto) 0.4 %; Eosinophils # (auto) 0.23 K/uL (0-0.5); Eosinophils % (auto) 1.7 %; Immature Granulocytes # (auto) 0.74 K/uL (0.00-0.02); Immature Granulocytes % (auto) 5.5 %; Lymphocytes % (auto) 11.9 %; Monocytes # (auto) 1.06 K/uL (0.11-0.59); Monocytes % (auto) 7.9 %; Neutrophils # (auto) 9.77 K/uL (1.4-6.5); Neutrophils % (auto) 72.6 %
--- NOTE | 2021-11-09 11:29 | Cardiology Progress Note ---
Date of Service November 09, 2021 Assessment & Plan (1) Chronic diastolic (congestive) heart failure: (2) Bilateral pulmonary embolism: (3) Asthma, moderate persistent: (4) H/O colectomy: Plan: Initially presented with UTI and cellulitis, treated with antibiotics. Recurrent GI bleed. Sigmoid mass, status post colectomy and colostomy placement. Recent DVT and PE, status post IVC filter placement. Diastolic heart failure. Volume status: Normovolemic to mildly hypovolemic. + Thrush Suspected hospital acquired delirium versus other Continue the current cardiac medications as prescribed. ? Reduced dose Eliquis anticoagulation down the road. Admission and Anticipated Discharge Date Admission Date: October 20, 2021 Supervising Physician Co-Signing Physician Notes I have seen and examined the patient. I have reviewed the medical record and discussed the case with Mr. Morrison. Patient's daughter was in the room during my exam. I agree with the plan as outlined. She is an elderly woman who is markedly deconditioned after everything that is going on this hospital admission. She is slow to recover but stable from a cardiac standpoint. Subjective Patient seen and examined. Chart, medications, and telemetry reviewed. Daughters (Jolie Cutler and Lianne) at bedside. Pleasant confused. Suspected hospital acquired delirium, as discussed, along with possible infection No pain or discomfort. Telemetry: Sinus in the 80's with PAC's, first degree AV block. Review of Systems Review of Systems: Complete Review of Systems unable to be obtained. Physical Exam Physical Exam: General: Alert to person and place. No acute distress. HENT: Normocephalic. Atraumatic. Mouth: + Thrush Eyes: PER. Conjunctiva pink, sclera clear. Neck: No JVD. Heart: Regular at 90 bpm. Lungs: Improved aeration as compared to yesterday. No wheeze. Abdomen: Not examined. Extremities: No clubbing, cyanosis, or edema. Limited neurological examination is without focal deficits. Floyd catheter draining mildly concentrated urine. Results & Data ([facility]) Vital Signs (Past 12 Hours) Vital Signs Temp Pulse Pulse Resp BP Pulse Ox 11/09/21 07:03 88 19 94 11/09/21 06:00 36.3 C L 86 18 146/81 H 97 11/09/21 00:49 18 96 11/09/21 00:00 92 H 16 Laboratory Results Laboratory Results - last 24 hr 11/09/21 11/09/21 10:35 10:35 WBC 13.45 H RBC 3.82 L Hgb 11.1 L Hct 35.6 L MCV 93.2 MCH 29.1 MCHC 31.2 L RDW Std Deviation 55.8 H RDW Coeff of Chrissy 16.3 H Plt Count 303 MPV 9.5 Immature Gran % (Auto) 5.5 Neut % (Auto) 72.6 Lymph % (Auto) 11.9 [place] % (Auto) 7.9 Eos % (Auto) 1.7 Baso % (Auto) 0.4 Neut # (Auto) 9.77 H Lymph # (Auto) 1.60 [place] # (Auto) 1.06 H Eos # (Auto) 0.23 Baso # (Auto) 0.05 Immature Gran # (Auto) 0.74 H Sodium 140 Potassium 3.8 Chloride 100 Carbon Dioxide 31 Anion Gap 9 BUN 33 H Creatinine 1.28 H Est Cr Clr Drug Dosing 23.9 Est GFR ( Amer) 42.9 Est GFR (Non-Af Amer) 37.0 BUN/Creatinine Ratio 25.8 H Glucose 134 H Calcium 9.1 Albumin 2.6 L
[2021-11-09] MEDS: LEVALBUTEROL HCL 1.25 MG/3 ML NEB NEB PRN (12:23)
--- NOTE | 2021-11-09 12:36 | Surgery Progress Note ---
Date of Service November 09, 2021 Assessment & Plan (1) H/O colectomy: Plan: Doing okay. No surgical issues at this point in time. Tolerating regular diet. We will continue to follow while she is in the hospital. Admission and Anticipated Discharge Date Admission Date: October 20, 2021 Subjective Patient seen. Daughter at bedside. Patient occasionally confused but otherwise no major complaints. She is eating without any difficulty. Physical Exam Physical Exam: Alert. Mildly confused. No distress Abdomen is soft. Periumbilical incision slight redness small amount of drainage. Stoma intact and functioning nicely Results & Data ([facility]) Vital Signs (Past 12 Hours) Vital Signs Temp Pulse Pulse Resp BP Pulse Ox 11/09/21 12:24 78 18 96 11/09/21 07:03 88 19 94 11/09/21 06:00 36.3 C L 86 18 146/81 H 97 11/09/21 00:49 18 96 PG Care Time/CCT Total # of Minutes Spent Total Time Spent with Patient: Total time spent is greater than 50% in coordination of care (as documented) at patient's floor/unit and/or counseling patient: Coding Level of Care Code None Diagnoses H/O colectomy Z90.49
[2021-11-09] MEDS: CODEINE SULFATE 30 MG TAB PO PRN ×2 (17:58→21:50)
--- NOTE | 2021-11-09 18:28 | Hospitalist Progress Note ---
Date of Service November 09, 2021 Assessment & Plan (1) Generalized weakness: Plan: per Dr. Pruett's notes with addendum: GI bleed, secondary to colon mass, adenocarcinoma, status post sigmoid colectomy and end colostomy 11/02 S/P Sigmoidoscopy:Likely malignant tumor at 15 cm proximal to the anus. Biopsied. Tattooed. Diverticulosis in the sigmoid colon. S/P EGD:Normal esophagus. Normal examined duodenum. Small hiatal hernia. No specimens collected. 11/02: Laparoscopic Sigmoid Colectomy; end colostomy ; enterolysis- Burt Washington, DO Pathology : Adenocarcinoma 11/09 Overall patient doing well postoperatively Abdominal pain improving, tolerating regular diet, good colostomy output Continue IV Tylenol, as needed morphine and codeine Remains afebrile, leukocytosis improving PT and OT evaluation At least heparin SQ tomorrow for DVT prophylaxis if hemoglobin remains stable Acute bronchitis Develop productive cough 3 to 4 days postop Currently on 2 L of oxygen via nasal cannula which is her baseline Sputum cultures: Gram-negative bacilli Blood cultures: Pending Continue cefepime IV day #3 Continue nebs Continue usual Mucinex Acute blood loss anemia likely secondary to surgery, hematoma Acute on Chronic anemia Multifactorial: CKD, Acute blood loss anemia, iron deficiency Hemoglobin decreased from 10-9--> 7.9 Iron level 47 No signs of active bleeding No signs of hematoma expansion 1 unit packed RBC ordered Globin now back to 10 Continue iron supplement Monitor closely Generalized weakness Likely multifactorial Complicated UTI: Multidrug-resistant Proteus on outpatient urine culture Traumatic RUE cellulitis Blood Cultures: Negative to date Outpatient Urine Cx from 10/18/21: Proteus mirabilis sensitive to cefepime, ciprofloxacin, gentamicin, meropenem, Zosyn, Bactrim. Resistant to ampicillin, Unasyn, cefazolin, cefoxitin, ceftriaxone. Stool for C. difficile negative Completed 5 day course of Zosyn>>Cipro--Completed course Continue Zosyn>>> transitioned to cefdinir for cellulitis>>Completed the course Appreciate orthopedics input. No I&D needed as per Ortho. -- Patient still very weak Continue PT and OT evaluation Right Upper Extremity Hematoma: RUE USD:Complex 15.2 x 3 x 3 cm right upper arm fluid collection. This favors a resolving hematoma, possibly intramuscular. Resolved Chronic diastolic heart failure -- Discussed with cardiology service Resumed usual Lasix and Aldactone Monitor volume status closely Nonobstructive CAD/TIA Continue home meds 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 Supratherapeutic INR 3.5 on admission Held Coumadin Status post IVC filter placement 11/02/2021 --Heart rate controlled -- Hold Coumadin for now, monitor hemoglobin -- Discussed with Dr. Benjamin, recommend Eliquis 2.5 mg twice daily if patient rem ains stable and active bleeding ruled out Hypertension -- Continue home meds -- Monitor Hyperlipidemia -- on statin Bronchial asthma -- Ongoing steroid Rx for last couple of months -- Discussed with daughter Prednisone being tapered slowly as an outpatient, currently down to 2.5 mg daily for the past 2 to 3 weeks Will taper prednisone to every other day, then continue to wean off No wheezing Breast cancer S/P surgery, tamoxifen on hold following recent confinement for PE DVT Follows with [facility] oncologist Thyroid cancer S/P surgery Post surgical hypothyroidism chronic, stable. Continue levothyroxine Abnormal LFTs CT ABD:The liver is homogeneous in attenuation on these limited noncontrast images. There is again cholelithiasis with no CT evidence for acute cholecystitis. Avoid hepatotoxic agents as able --Resolved DM II New Diagnosis H/O Prediabetes Likely worsened due to setoids HbA1C:6.8 No tight glycemic control needed given advanced age --Blood glucose within acceptable range CKD Stage III Cr at baseline Monitor renal function Avoid nephrotoxic agents as able Ambulatory dysfunction/functional disability Fall precautions PT/OT DVT Px: Status post IVC filter placement Heparin subcutaneous or Eliquis Code Status Full Code Disposition PT/OT prior to discharge plan of care discussed with patient and her daughter Janny at the bedside in detail and at length all questions answered They are understanding, agreeable, comfortable with the plan of care (2) Cellulitis of arm, right: (3) Supratherapeutic INR: (4) Acute UTI: Admission and Anticipated Discharge Date Admission Date: October 20, 2021 Subjective Follow-up for colon mass,status post colectomy; left upper extremity cellulitis and UTI status posttreatment, etc. Seen resting bedside chair sitting up, on 2 L of oxygen, with daughter at bedside visiting Earlier this morning patient was having delirium, reoriented This afternoon patient is having back pain-chronic but worse today, has history of osteoporosis per family Appetite is good, tolerating diet well, no abdominal pain, nausea vomiting Cough is improving, no shortness of breath No other symptoms Review of Systems Review of Systems: all noted and negative except for above Physical Exam Physical Exam: General- oriented x 2, not in distress, speaks in sentences with no effort or accessory muscle use Eyes- anicteric Neck- no JVD Lungs-mild rales at the right base, clear on the left Heart- normal rate, regular rhythm; no murmurs Abdomen- normal bowel sounds, nondistended, soft, nontender Extremities- no pretibial edema, no calf tenderness Neuro- alert, oriented x2; no gross focal neurologic deficits Skin- warm & dry Results & Data Results & Data ([facility]) Vital Signs (Past 12 Hours) Vital Signs Pulse Pulse Resp Pulse Ox 11/09/21 14:48 96 H 11/09/21 12:24 78 18 96 11/09/21 07:03 88 19 94 all noted and reviewed including below
[2021-11-09] MEDS: LIDOCAINE 5% 1 PATCH TD SCH (18:38)
[2021-11-09] MEDS: MONTELUKAST SODIUM 10 MG TABLET PO SCH (20:11)
[2021-11-09] MEDS: CEFEPIME 2,000 MG in SYRINGE 0 ML IV SCH (20:12)
[2021-11-09] MEDS: ISOSORBIDE MONO EXTENDED REL 60 MG TABCR PO SCH (20:16)
[2021-11-09] MEDS ORDERED: MELATONIN 3 MG TAB PO PRN (21:42)
[2021-11-09] MEDS ORDERED: MELATONIN 3 MG TAB PO ONE (21:47)
[2021-11-09] MEDS: BENZONATATE 100 MG CAPSULE PO PRN (21:49)
[2021-11-09] MEDS: MoRPHine SULFATE 2 MG/ML CARP IV PRN (23:39)
[2021-11-10] MEDS: LEVALBUTEROL 1.25MG/0.5ML NEB NEB SCH ×5 (00:19→19:16)
[2021-11-10] MEDS: ACETAMINOPHEN 1,000 MG/100 ML VIAL IV SCH ×3 (03:37→19:00)
[2021-11-10] MEDS: carvediloL 12.5 MG TAB PO SCH ×2 (06:30→16:07)
[2021-11-10] MEDS: BUDESONIDE 0.5 MG/2 ML VIAL (PULMICORT) INH SCH ×2 (07:00→19:16)
[2021-11-10 07:12] LABS: Hematocrit (blood only) 34.7 % (37-47); Hemoglobin 10.9 g/dL (12.0-16.0); Mean Corpuscular Hemoglobin 29.6 pg (25-34); Mean Corpuscular Hgb Conc 31.4 g/dL (32-36); Mean Corpuscular Volume 94.3 fL (80-100); Mean Platelet Volume 9.7 fL (7.4-10.4); Platelet Count 339 K/uL (130-400); RDW Coefficient of Variation 15.9 % (11.5-14.5); RDW Standard Deviation 55.1 fL (36.4-46.3); Red Blood Count 3.68 M/uL (4.2-5.4); White Blood Count 12.25 K/uL (4.8-10.8)
[2021-11-10 07:32] LABS: Albumin Level 2.7 gm/dl (3.4-5.0); BUN Creatinine Ratio 29.6 (10-20); Calcium 9.1 mg/dl (8.5-10.1); Creatinine Clr Calc Pharmacy 24.5 ml/min; Est GFR (African American) 44.2 ml/min; Est GFR (Non-African American) 38.1 ml/min; Potassium 3.8 mmol/L (3.5-5.1)
[2021-11-10 07:40] LABS: Basophils # (auto) 0.09 K/uL (0-0.2); Basophils % (auto) 0.7 %; Eosinophils # (auto) 0.28 K/uL (0-0.5); Eosinophils % (auto) 2.3 %; Hypochromasia Present; Immature Granulocytes # (auto) 0.92 K/uL (0.00-0.02); Immature Granulocytes % (auto) 7.5 %; Lymphocytes # (auto) 2.35 K/uL (1.2-3.4); Lymphocytes % (auto) 19.2 %; Monocytes # (auto) 1.46 K/uL (0.11-0.59); Monocytes % (auto) 11.9 %; Neutrophils # (auto) 7.15 K/uL (1.4-6.5); Neutrophils % (auto) 58.4 %
[2021-11-10] MEDS: LACTOBACILLUS ACIDOPHILUS 1 GM PACK PO SCH ×3 (07:51→16:06)
[2021-11-10] MEDS: guaiFENesin 600 MG TABCR PO SCH ×2 (07:51→16:07)
[2021-11-10] MEDS: LEVOTHYROXINE SODIUM 200 MCG TABLET PO SCH (07:51)
[2021-11-10] MEDS: ESCITALOPRAM OXALATE 10 MG TAB PO SCH (07:52)
[2021-11-10] MEDS: FUROSEMIDE 20 MG TAB PO SCH ×2 (07:52→16:06)
[2021-11-10] MEDS: POTASSIUM CHLORIDE CRTAB 20 MEQ TABCR PO SCH (07:52)
[2021-11-10] MEDS: FAMOTIDINE 20 MG TAB PO SCH (07:52)
[2021-11-10] MEDS: FEXOFENADINE HCL 180 MG TAB PO SCH (07:52)
[2021-11-10] MEDS: ASCORBIC ACID 500 MG TAB PO SCH ×2 (07:53→20:27)
[2021-11-10] MEDS: SPIRONOLACTONE 12.5 MG TAB PO SCH (07:53)
[2021-11-10] MEDS: SUCRALFATE 1 GM/10 ML UDC PO SCH ×3 (07:54→20:35)
[2021-11-10] MEDS: FERROUS SULFATE 325 MG TAB PO SCH ×2 (07:54→20:29)
[2021-11-10] MEDS: NYSTATIN SUSP 500,000 U/5 ML UDC PO SCH ×4 (07:54→20:30)
[2021-11-10] MEDS: AZELASTINE HCL 0.1% NASAL 200 SPRAYS/27,400 MCG BTL SCH ×2 (07:55→20:39)
[2021-11-10] MEDS: LIDOCAINE 5% 1 PATCH TD SCH (07:55)
[2021-11-10] MEDS: TRIAMCINOLONE ACET NASAL SPRAY 10.8ML BTL SCH ×2 (07:55→20:39)
[2021-11-10] MEDS: FLUTICASONE/VILANTEROL 200/25MCG 14 PUFFS/INHALER INH SCH (07:56)
--- NOTE | 2021-11-10 08:47 | Surgery Progress Note ---
Date of Service November 10, 2021 Assessment & Plan (1) H/O colectomy: Plan: POD 8 lap sigmoid colectomy/colostomy umbilical wound packed, change daily diet as harjeet Admission and Anticipated Discharge Date Admission Date: October 20, 2021 Subjective tolerating diet, some back pain, daughter at bedside Physical Exam Gastrointestinal (Abdomen): Inspection/Auscultation: + abdominal surgical incision (drainage from umbilical incision); abdomen not distended +colostomy output Results & Data ([facility]) Vital Signs (Past 12 Hours) Vital Signs Temp Pulse Pulse Pulse Resp BP Pulse Ox 11/10/21 07:00 83 18 95 11/10/21 06:00 36.6 C 84 20 166/85 H 95 11/09/21 23:00 90 PG Care Time/CCT Total # of Minutes Spent Total Time Spent with Patient: Total time spent is greater than 50% in coordination of care (as documented) at patient's floor/unit and/or counseling patient: Coding Level of Care Code None Diagnoses H/O colectomy Z90.49
[2021-11-10] MEDS: PANTOprazole 40 MG in SYRINGE 0 ML IV SCH ×2 (10:44→20:26)
[2021-11-10] MEDS: LEVALBUTEROL HCL 1.25 MG/3 ML NEB NEB PRN (13:38)
[2021-11-10] MEDS: CEFEPIME 2,000 MG in SYRINGE 0 ML IV SCH (20:26)
[2021-11-10] MEDS: MONTELUKAST SODIUM 10 MG TABLET PO SCH (20:30)
[2021-11-10] MEDS: ISOSORBIDE MONO EXTENDED REL 60 MG TABCR PO SCH (20:36)
[2021-11-10] MEDS: MoRPHine SULFATE 2 MG/ML CARP IV PRN (21:18)
[2021-11-10] MEDS: APIXABAN 2.5 MG TAB PO SCH (21:42)
[2021-11-10] MEDS ORDERED: ACETAMINOPHEN 10MG/ML PEDIATRIC DOSING IV SCH (22:00)
[2021-11-10] MEDS ORDERED: ACETAMINOPHEN 1,000 MG/100 ML VIAL IV SCH (22:00)
--- NOTE | 2021-11-10 22:49 | Hospitalist Progress Note ---
Date of Service November 10, 2021 Assessment & Plan (1) Generalized weakness: Plan: Likely multifactorial due to prolong admission for complicated UTI CT head showed no acute intracranial abnormality Continue PT/OT Fall precaution daughter is not interested for her to go to rehab GI bleed secondary to colon mass, adenocarcinoma, status post sigmoid colectomy and end colostomy 11/02 S/P Sigmoidoscopy:Likely malignant tumor at 15 cm proximal to the anus. Biopsied. Tattooed. Diverticulosis in the sigmoid colon. S/P EGD:Normal esophagus. Normal examined duodenum. Small hiatal hernia. No specimens collected. 11/02: Laparoscopic Sigmoid Colectomy; end colostomy ; enterolysis- Burt Washington, Pathology : Adenocarcinoma Abdominal pain improving, tolerating regular diet, good colostomy output Hgb stable Acute bronchitis Develop productive cough 3 to 4 days postop Currently on 2 L of oxygen via nasal cannula which is her baseline Sputum cultures: Gram-negative bacilli Blood cultures no growth Continue cefepime IV day #4 Continue nebs Continue usual Mucinex Clinically improved Acute blood loss anemia likely secondary to surgery Hematoma Acute on Chronic anemia Multifactorial: CKD, Acute blood loss anemia, iron deficiency Hemoglobin decreased from 10-9--> 7.9 S/P 1 unit PRBC during the admission course Iron level 47 No signs of active bleeding No signs of hematoma expansion Continue iron supplement Eliquis resume today Continue monitor CBC Complicated UTI Multidrug-resistant Proteus on outpatient urine culture Outpatient Urine Cx from 10/18/21: Proteus mirabilis sensitive to cefepime, ciprofloxacin, gentamicin, meropenem, Zosyn, Bactrim. Resistant to ampicillin, Unasyn, cefazolin, cefoxitin, ceftriaxone. Completed course of abx Traumatic RUE cellulitis Blood Cultures: Negative to date Completed 5 day course of Zosyn>>Cipro--Completed course Continue Zosyn>>> transitioned to cefdinir for cellulitis>>Completed the course Appreciate orthopedics input. No I&D needed as per Ortho. Continue PT and OT evaluation Right Upper Extremity Hematoma: RUE USD:Complex 15.2 x 3 x 3 cm right upper arm fluid collection. This favors a resolving hematoma, possibly intramuscular. 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 Benjamin, recommend Eliquis 2.5 mg twice daily if patient remains stable and active bleeding ruled out Hypertension -- Continue home meds -- Monitor Hyperlipidemia -- on statin Bronchial asthma -- Ongoing steroid Rx for last couple of months -- Discussed with daughter Prednisone being tapered slowly as an outpatient, currently down to 2.5 mg daily for the past 2 to 3 weeks Will taper prednisone to every other day, then continue to wean off No wheezing Breast cancer S/P surgery, tamoxifen on hold following recent confinement for PE DVT Follows with [facility] oncologist Thyroid cancer S/P surgery Post surgical hypothyroidism chronic, stable. Continue levothyroxine Abnormal LFTs CT ABD:The liver is homogeneous in attenuation on these limited noncontrast images. There is again cholelithiasis with no CT evidence for acute cholecystitis. Avoid hepatotoxic agents as able --Resolved DM II New Diagnosis H/O Prediabetes Likely worsened due to setoids HbA1C:6.8 No tight glycemic control needed given advanced age --Blood glucose within acceptable range CKD Stage III Cr at baseline Monitor renal function Avoid nephrotoxic agents as able Ambulatory dysfunction/functional disability Fall precautions PT/OT DVT Px: Status post IVC filter placement Heparin subcutaneous or Eliquis Code Status Full Code Disposition PT/OT prior to discharge Updated provided with daughter at bedside and answered all her questions (2) Cellulitis of arm, right: (3) Supratherapeutic INR: (4) Acute UTI: Admission and Anticipated Discharge Date Admission Date: October 20, 2021 Subjective Pt was seen and examined for postop colectomy, anemia, LUE cellulitis and bronchitis Sitting in chair with daughter at bedside Pt said that she feels ok She said that her cough improves significantly Denies any chest pain, palpitation, dizziness and SOB Review of Systems Review of Systems: All systems reviewed & are unremarkable except as noted in Subjective Physical Exam Physical Exam: General- No acute distress Head- atraumatic Eyes- PERRL, EOMI, ENT- oropharynx clear Neck- supple, no JVD Lungs- clear to auscultation Heart- regular rhythm; no murmur Abdomen- normal bowel sounds, +colostomy bag in the left Extremities- no calf tenderness Neuro- alert, oriented x 2; PERRL, EOMI; no facial palsy; no dysarthria Skin- warm & dry Results & Data Results & Data ([facility]) Vital Signs (Past 12 Hours) Vital Signs Pulse Pulse Resp Pulse Ox 11/10/21 19:16 80 16 99 11/10/21 13:40 61 17 97
[2021-11-11] MEDS: LEVALBUTEROL 1.25MG/0.5ML NEB NEB SCH ×4 (01:00→19:13)
[2021-11-11] MEDS: MoRPHine SULFATE 2 MG/ML CARP IV PRN (02:15)
[2021-11-11] MEDS: ACETAMINOPHEN 1,000 MG/100 ML VIAL IV SCH ×2 (03:38→11:18)
[2021-11-11] MEDS ORDERED: OLANZapine 10 MG/2.1 ML SDV IM STA (03:46)
--- NOTE | 2021-11-11 03:49 | Communication Note ---
Date of Service: November 11, 2021 Patient delirious as per RN. Anxious and trying to get out of bed. serum crea 1.25 (11/10) AP Delirium ARF Zyprexa trial Baseline UA, hold Lasix for now IV albumin 1 dose Follow renal function
[2021-11-11] MEDS ORDERED: ALBUMIN 25% 12.5 GM/50 ML VIAL IV ONE (03:55)
[2021-11-11] MEDS: carvediloL 12.5 MG TAB PO SCH ×2 (05:35→17:14)
[2021-11-11] MEDS: LEVOTHYROXINE SODIUM 200 MCG TABLET PO SCH (05:35)
[2021-11-11] MEDS: BUDESONIDE 0.5 MG/2 ML VIAL (PULMICORT) INH SCH ×2 (07:05→19:13)
[2021-11-11] MEDS: ASCORBIC ACID 500 MG TAB PO SCH ×2 (07:25→20:40)
[2021-11-11] MEDS: AZELASTINE HCL 0.1% NASAL 200 SPRAYS/27,400 MCG BTL SCH ×2 (07:25→17:28)
[2021-11-11] MEDS: APIXABAN 2.5 MG TAB PO SCH ×2 (07:25→20:15)
[2021-11-11] MEDS: POTASSIUM CHLORIDE CRTAB 20 MEQ TABCR PO SCH (07:26)
[2021-11-11] MEDS: PANTOprazole 40 MG in SYRINGE 0 ML IV SCH (07:26)
[2021-11-11] MEDS: LIDOCAINE 5% 1 PATCH TD SCH (07:26)
[2021-11-11] MEDS: LACTOBACILLUS ACIDOPHILUS 1 GM PACK PO SCH ×3 (07:27→17:15)
[2021-11-11] MEDS: guaiFENesin 600 MG TABCR PO SCH ×2 (07:27→17:17)
[2021-11-11] MEDS: SUCRALFATE 1 GM/10 ML UDC PO SCH ×3 (07:28→20:16)
[2021-11-11] MEDS: NYSTATIN SUSP 500,000 U/5 ML UDC PO SCH ×4 (07:28→20:17)
[2021-11-11] MEDS: predniSONE 2.5 MG TAB PO SCH (07:29)
[2021-11-11] MEDS: FERROUS SULFATE 325 MG TAB PO SCH ×2 (07:29→20:40)
[2021-11-11] MEDS: FAMOTIDINE 20 MG TAB PO SCH (07:29)
[2021-11-11] MEDS: ESCITALOPRAM OXALATE 10 MG TAB PO SCH (07:30)
[2021-11-11] MEDS: TRIAMCINOLONE ACET NASAL SPRAY 10.8ML BTL SCH ×2 (07:30→17:28)
[2021-11-11] MEDS: FEXOFENADINE HCL 180 MG TAB PO SCH (07:30)
[2021-11-11] MEDS: SPIRONOLACTONE 12.5 MG TAB PO SCH (07:31)
[2021-11-11] MEDS: FLUTICASONE/VILANTEROL 200/25MCG 14 PUFFS/INHALER INH SCH (07:31)
[2021-11-11 07:53] LABS: Hematocrit (blood only) 38.7 % (37-47); Hemoglobin 12.2 g/dL (12.0-16.0); Mean Corpuscular Hemoglobin 29.7 pg (25-34); Mean Corpuscular Hgb Conc 31.5 g/dL (32-36); Mean Corpuscular Volume 94.2 fL (80-100); Mean Platelet Volume 9.5 fL (7.4-10.4); Platelet Count 334 K/uL (130-400); RDW Coefficient of Variation 15.9 % (11.5-14.5); RDW Standard Deviation 55.1 fL (36.4-46.3); Red Blood Count 4.11 M/uL (4.2-5.4); White Blood Count 13.73 K/uL (4.8-10.8)
[2021-11-11 08:14] LABS: BUN Creatinine Ratio 28.4 (10-20); Calcium 9.4 mg/dl (8.5-10.1); Creatinine Clr Calc Pharmacy 21.7 ml/min; Est GFR (African American) 38.2 ml/min; Est GFR (Non-African American) 32.9 ml/min; Potassium 3.7 mmol/L (3.5-5.1)
[2021-11-11 08:17] LABS: Basophils % (auto) 0.7 %; Eosinophils # (auto) 0.37 K/uL (0-0.5); Eosinophils % (auto) 2.7 %; Immature Granulocytes # (auto) 1.05 K/uL (0.00-0.02); Immature Granulocytes % (auto) 7.6 %; Lymphocytes # (auto) 2.58 K/uL (1.2-3.4); Lymphocytes % (auto) 18.8 %; Monocytes # (auto) 1.54 K/uL (0.11-0.59); Monocytes % (auto) 11.2 %; Neutrophils # (auto) 8.09 K/uL (1.4-6.5)
--- NOTE | 2021-11-11 11:46 | Cardiology Progress Note ---
Date of Service November 11, 2021 Assessment & Plan (1) Chronic diastolic (congestive) heart failure: (2) Bilateral pulmonary embolism: (3) Asthma, moderate persistent: (4) H/O colectomy: Plan: Initially presented with UTI and cellulitis, treated with antibiotics. Recurrent GI bleed. Sigmoid mass, status post colectomy and colostomy placement. Recent DVT and PE, status post IVC filter placement. Diastolic heart failure. Volume status: Normovolemic to mildly hypovolemic. + [facility] acquired delirium Stable cardiac signs and symptoms. Continue the current cardiac medications as prescribed. Outpatient cardiology follow-up. Please call with any questions or concerns. Orders for a bedside commode and to change oxygen supply company to [employer] done through [employer], as requested. Admission and Anticipated Discharge Date Admission Date: October 20, 2021 Subjective Sleeping in the bedside chair after a rough night. Daughter (Jolie Cutler) at bedside. Floyd catheter remains in place. Pain controlled. Telemetry: Sinus Review of Systems Review of Systems: Complete Review of Systems unable to be obtained. Physical Exam Physical Exam: General: No acute distress. HENT: Normocephalic. Atraumatic. Neck: No JVD. Heart: Regular at 86 bpm. Extremities: No clubbing, cyanosis, or edema. Floyd catheter draining relatively clear urine. Results & Data ([facility]) Vital Signs (Past 12 Hours) Vital Signs Pulse Pulse Resp Pulse Ox 11/11/21 07:05 76 18 97 11/11/21 01:02 74 16 98 Laboratory Results Laboratory Results - last 24 hr 11/11/21 11/11/21 07:38 07:38 WBC 13.73 H RBC 4.11 L Hgb 12.2 Hct 38.7 MCV 94.2 MCH 29.7 MCHC 31.5 L RDW Std Deviation 55.1 H RDW Coeff of Chrissy 15.9 H Plt Count 334 MPV 9.5 Immature Gran % (Auto) 7.6 Neut % (Auto) 59.0 Lymph % (Auto) 18.8 [place] % (Auto) 11.2 Eos % (Auto) 2.7 Baso % (Auto) 0.7 Neut # (Auto) 8.09 H Lymph # (Auto) 2.58 [place] # (Auto) 1.54 H Eos # (Auto) 0.37 Baso # (Auto) 0.10 Immature Gran # (Auto) 1.05 H Sodium 141 Potassium 3.7 Chloride 99 Carbon Dioxide 34 H Anion Gap 8 BUN 40 H Creatinine 1.41 H Est Cr Clr Drug Dosing 21.7 Est GFR ( Amer) 38.2 Est GFR (Non-Af Amer) 32.9 BUN/Creatinine Ratio 28.4 H Glucose 87 Calcium 9.4
[2021-11-11] MEDS ORDERED: ACETAMINOPHEN 500 MG TAB PO PRN (11:52)
[2021-11-11] MEDS: ACETAMINOPHEN 500 MG TAB PO PRN ×2 (12:56→20:14)
[2021-11-11] MEDS: PANTOprazole 40 MG TAB PO SCH ×2 (12:57→20:16)
--- NOTE | 2021-11-11 13:39 | Surgery Progress Note ---
Date of Service November 11, 2021 Assessment & Plan (1) H/O colectomy: Plan: POD 9 lap sigmoid colectomy/colostomy new delirium starting overnight...she did receive IV morphine around 11p and MD yesterday..could be contributing ostomy functioning, previously tolerating a diet Continue to change packing to midline wound daily with nu-gauze wick and 4x4 gauze family and case management working on dispo plans from a surgical standpoint she is okay for dispo, but will need medicine clearance f/u with dr. thomas in clinic in 1-2 weeks Admission and Anticipated Discharge Date Admission Date: October 20, 2021 Subjective Patient unable to give subjective history due to mental status. sitting in chair Physical Exam Physical Exam: sitting in chair, delirium Results & Data ([facility]) Vital Signs (Past 12 Hours) Vital Signs Temp Pulse Pulse Pulse Resp BP Pulse Ox 11/11/21 12:38 72 17 91 11/11/21 12:19 36.9 C 69 18 121/70 91 11/11/21 07:53 77 11/11/21 07:05 76 18 97 PG Care Time/CCT Total # of Minutes Spent Total Time Spent with Patient: Total time spent is greater than 50% in coordination of care (as documented) at patient's floor/unit and/or counseling patient: Coding Level of Care Code None Diagnoses H/O colectomy Z90.49
--- NOTE | 2021-11-11 15:32 | Hospitalist Progress Note ---
Date of Service November 11, 2021 Assessment & Plan (1) Cellulitis of arm, right: (2) Supratherapeutic INR: (3) Acute UTI: (4) Generalized weakness: Plan: Likely multifactorial due to prolong admission for complicated UTI CT head showed no acute intracranial abnormality Continue PT/OT with Home health service Fall precaution daughter is not interested for her to go to rehab GI bleed secondary to colon mass, adenocarcinoma, status post sigmoid colectomy and end colostomy 11/02 S/P Sigmoidoscopy:Likely malignant tumor at 15 cm proximal to the anus. Biopsied. Tattooed. Diverticulosis in the sigmoid colon. S/P EGD:Normal esophagus. Normal examined duodenum. Small hiatal hernia. No specimens collected. 11/02: Laparoscopic Sigmoid Colectomy; end colostomy ; enterolysis- Burt Washington, DO Pathology : Adenocarcinoma Abdominal pain improving, tolerating regular diet, good colostomy output Ostomy functioning case discussed with Surgery Continue to change packing to midline wound daily with nu-gauze wick and 4x4 gauze as per surgery Hgb stable at 12 Due to recent surgical surgery and history of CHF. pt has medical condition that requires frequent repositioning of the body in ways not feasible with an ordinary bed in order to alleviate pain Ok from surgical standpoint to discharge home Follow up with surgery Dr. Washington in 1- 2 weeks Acute bronchitis Develop productive cough 3 to 4 days postop Currently on 2 L of oxygen via nasal cannula which is her baseline Sputum cultures: Gram-negative bacilli Blood cultures no growth currently on cefepime IV day #4, will transition to Cefdinir 300mg daily Continue nebs Continue usual Mucinex Clinically improved Acute blood loss anemia likely secondary to surgery Hematoma Acute on Chronic anemia Multifactorial: CKD, Acute blood loss anemia, iron deficiency Hemoglobin decreased from 10-9--> 7.9 S/P 1 unit PRBC during the admission course Iron level 47 No signs of active bleeding No signs of hematoma expansion Continue iron supplement Eliquis resumed yesterday as per cardiology and Surgery ok as well Hgb 12 today Complicated UTI Multidrug-resistant Proteus on outpatient urine culture Outpatient Urine Cx from 10/18/21: Proteus mirabilis sensitive to cefepime, ciprofloxacin, gentamicin, meropenem, Zosyn, Bactrim. Resistant to ampicillin, Unasyn, cefazolin, cefoxitin, ceftriaxone. Completed course of abx Traumatic RUE cellulitis Blood Cultures: Negative to date Completed 5 day course of Zosyn>>Cipro--Completed course Continue Zosyn>>> transitioned to cefdinir for cellulitis>>Completed the course Appreciate orthopedics input. No I&D needed as per Ortho. Continue PT and OT evaluation Right Upper Extremity Hematoma: RUE USD:Complex 15.2 x 3 x 3 cm right upper arm fluid collection. This favors a resolving hematoma, possibly intramuscular. 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 Benjamin, recommend Eliquis 2.5 mg twice daily if patient remains stable and active bleeding ruled out Hypertension -- Continue home meds -- Monitor Hyperlipidemia -- on statin Bronchial asthma -- Ongoing steroid Rx for last couple of months -- Discussed with daughter Prednisone being tapered slowly as an outpatient, currently down to 2.5 mg daily for the past 2 to 3 weeks Will taper prednisone to every other day, then continue to wean off No wheezing Breast cancer S/P surgery, tamoxifen on hold following recent confinement for PE DVT Follows with [facility] oncologist Thyroid cancer S/P surgery Post surgical hypothyroidism chronic, stable. Continue levothyroxine Abnormal LFTs CT ABD:The liver is homogeneous in attenuation on these limited noncontrast images. There is again cholelithiasis with no CT evidence for acute cholecystitis. Avoid hepatotoxic agents as able --Resolved DM II New Diagnosis H/O Prediabetes Likely worsened due to setoids HbA1C:6.8 No tight glycemic control needed given advanced age --Blood glucose within acceptable range CKD Stage III Cr at baseline 1.4 today Monitor renal function Avoid nephrotoxic agents as able Ambulatory dysfunction/functional disability Fall precautions PT/OT DVT Px: Status post IVC filter placement Heparin subcutaneous or Eliquis Code Status Full Code Disposition PT/OT prior to discharge Plan to discharge home tomorrow with HH Updated provided with daughter at bedside and answered all her questions Admission and Anticipated Discharge Date Admission Date: October 20, 2021 Subjective Pt was seen and examined for postop colectomy, anemia, LUE cellulitis and bronchitis Lying on the recliner with daughter at bedside Pt was very delirious last night and received Zyprexa IM and Morphine IV in the middle of the night Daughter said that because she was over medicated in the middle of the night, this morning pt has been sleeping Daughters would like to take her home today, but i told daughter that i would come back to reassess her later before discharging her Review of Systems Review of Systems: All systems reviewed & are unremarkable except as noted in Subjective Physical Exam Physical Exam: General- very sleepy Head- atraumatic Eyes- PERRL, EOMI, ENT- oropharynx clear Neck- supple, no JVD Lungs- clear to auscultation Heart- regular rhythm; no murmur Abdomen- normal bowel sounds, +colostomy bag in the left Extremities- no calf tenderness Neuro- alert, oriented x 2; PERRL, EOMI; no facial palsy; no dysarthria Skin- warm & dry Results & Data Results & Data ([facility]) Vital Signs (Past 12 Hours) Vital Signs Temp Pulse Pulse Pulse Resp BP Pulse Ox 11/11/21 14:52 68 11/11/21 12:38 72 17 91 11/11/21 12:19 36.9 C 69 18 121/70 91 11/11/21 07:53 77 11/11/21 07:05 76 18 97
--- NOTE | 2021-11-11 16:44 | CT Scan Report ---
CT head/brain wo con CLINICAL HISTORY: 89 years-old Female with AMS. Acutely altered mental status TECHNIQUE: Multiple axial CT images of the head were obtained without contrast. A dose lowering tech nique was utilized adhering to the principles of ALARA. CT DOSE: 537.48 mGy.cm COMPARISON: Head CT 10/19/2021 FINDINGS: No acute intracranial hemorrhage, midline shift, intracranial mass, hydrocephalus, territorial ischem ia or abnormal extra-axial collection. Age-related involutional changes. White matter hypodensities s uggest chronic microvascular ischemic disease. Cerebral vascular calcifications. The calvarium is intact. Prior bilateral lens replacement. The paranasal sinuses, mastoid air cells, and middle ear cavities are clear. IMPRESSION: No acute intracranial abnormality. ACT 112: Negative or not required by law. The above report was generated using voice recognition software. It may contain grammatical, syntax o r spelling errors. Electronically signed by: Isaac Pierre M.D. 11/11/2021 4:42 PM
[2021-11-11] MEDS: FUROSEMIDE 20 MG TAB PO SCH (17:13)
[2021-11-11] MEDS ORDERED: Nursing to Pharmacy Communication SCH (17:30)
[2021-11-11] MEDS ORDERED: NYSTATIN POWDER 15GM BTL EXT SCH (19:45)
[2021-11-11] MEDS ORDERED: CEFDINIR 300 MG CAP PO SCH (20:00)
[2021-11-11] MEDS: CEFDINIR 300 MG CAP PO SCH (20:14)
[2021-11-11] MEDS: MONTELUKAST SODIUM 10 MG TABLET PO SCH (20:40)
[2021-11-11] MEDS: MENTHOL-ZINC OXIDE 360 APPLN/120 GM TUBE EXT SCH (20:41)
[2021-11-11] MEDS: ISOSORBIDE MONO EXTENDED REL 60 MG TABCR PO SCH (22:08)
[2021-11-12] MEDS: LEVALBUTEROL 1.25MG/0.5ML NEB NEB SCH ×3 (00:48→13:39)
[2021-11-12] MEDS: carvediloL 12.5 MG TAB PO SCH ×2 (05:29→16:33)
[2021-11-12] MEDS: LEVOTHYROXINE SODIUM 200 MCG TABLET PO SCH (05:30)
[2021-11-12] MEDS: BUDESONIDE 0.5 MG/2 ML VIAL (PULMICORT) INH SCH (07:43)
[2021-11-12] MEDS: FLUTICASONE/VILANTEROL 200/25MCG 14 PUFFS/INHALER INH SCH (08:44)
[2021-11-12] MEDS: FUROSEMIDE 20 MG TAB PO SCH ×2 (08:46→16:34)
[2021-11-12] MEDS: ASCORBIC ACID 500 MG TAB PO SCH (08:46)
[2021-11-12] MEDS: LACTOBACILLUS ACIDOPHILUS 1 GM PACK PO SCH ×3 (08:46→16:34)
--- NOTE | 2021-11-12 08:46 | Surgery Progress Note ---
Date of Service November 12, 2021 Assessment & Plan (1) H/O colectomy: Plan: POD 10 lap sigmoid colectomy/colostomy -delirium improving, more awake than yesterday. hold off on narcotics -on regular diet -discussed with daughter they may continue change packing to midline wound daily with nu-gauze wick and 4x4 gauze or just keep a dry gauze over the incision and change daily. will heal up on its own -family and case management working on dispo plans -from a surgical standpoint she is okay for dispo today if okay with medicine -f/u with dr. thomas in clinic in 7-10 days Admission and Anticipated Discharge Date Admission Date: October 20, 2021 Subjective Patient more awake than yesterday. Sitting up in bed with bfast tray. Daughter at bedside who expresses wishes to take patient home today. Physical Exam Physical Exam: awake Gastrointestinal (Abdomen): Inspection/Auscultation: + abdominal surgical incision (packing to midline incision with nu-gauze) + ostomy Results & Data ([facility]) Vital Signs (Past 12 Hours) Vital Signs Temp Pulse Pulse Resp BP Pulse Ox 11/12/21 02:35 64 11/12/21 00:50 68 16 95 11/11/21 22:12 36.4 C L 71 18 104/52 L 95 PG Care Time/CCT Total # of Minutes Spent Total Time Spent with Patient: Total time spent is greater than 50% in coordination of care (as documented) at patient's floor/unit and/or counseling patient: Coding Level of Care Code None Diagnoses H/O colectomy Z90.49
[2021-11-12] MEDS: guaiFENesin 600 MG TABCR PO SCH ×2 (08:47→16:35)
[2021-11-12] MEDS: FERROUS SULFATE 325 MG TAB PO SCH (08:47)
[2021-11-12] MEDS: TRIAMCINOLONE ACET NASAL SPRAY 10.8ML BTL SCH (08:48)
[2021-11-12] MEDS: POTASSIUM CHLORIDE CRTAB 20 MEQ TABCR PO SCH (08:48)
[2021-11-12] MEDS: AZELASTINE HCL 0.1% NASAL 200 SPRAYS/27,400 MCG BTL SCH (08:48)
[2021-11-12] MEDS: LIDOCAINE 5% 1 PATCH TD SCH (08:49)
[2021-11-12] MEDS: PANTOprazole 40 MG TAB PO SCH (09:29)
[2021-11-12] MEDS: APIXABAN 2.5 MG TAB PO SCH (09:29)
[2021-11-12] MEDS: SUCRALFATE 1 GM/10 ML UDC PO SCH ×3 (09:29→15:09)
[2021-11-12] MEDS: FAMOTIDINE 20 MG TAB PO SCH (09:30)
[2021-11-12] MEDS: SPIRONOLACTONE 12.5 MG TAB PO SCH (09:30)
[2021-11-12] MEDS: FEXOFENADINE HCL 180 MG TAB PO SCH (09:31)
[2021-11-12] MEDS: ESCITALOPRAM OXALATE 10 MG TAB PO SCH (09:31)
[2021-11-12] MEDS: MENTHOL-ZINC OXIDE 360 APPLN/120 GM TUBE EXT SCH (09:33)
[2021-11-12] MEDS: NYSTATIN SUSP 500,000 U/5 ML UDC PO SCH ×3 (09:34→16:33)
--- NOTE | 2021-11-12 10:24 | Cardiology Progress Note ---
Date of Service November 12, 2021 Assessment & Plan (1) Chronic diastolic (congestive) heart failure: (2) Bilateral pulmonary embolism: (3) Asthma, moderate persistent: (4) H/O colectomy: Plan: Initially presented with UTI and cellulitis, treated with antibiotics. Recurrent GI bleed. Sigmoid mass, status post colectomy and colostomy placement. Recent DVT and PE, status post IVC filter placement. Diastolic heart failure. Volume status: Normovolemic to mildly hypovolemic. + [facility] acquired delirium Stable cardiac signs and symptoms. Continue the current cardiac medications as prescribed. Outpatient cardiology follow-up. Please call with any questions or concerns. Admission and Anticipated Discharge Date Admission Date: October 20, 2021 Supervising Physician Co-Signing Physician Notes I have reviewed the medical record and discussed the case with Mr. Morrison. I agree with the plan as outlined above. Cardiology will sign off the case. Subjective Patient seen and examined. Chart, medications, and telemetry reviewed. Improving delirium. Intermittent hallucinations. Floyd catheter remains in place. No pain. Daughter (Jolie Cutler) at bedside. Telemetry: Sinus in the 60's to 80's. Review of Systems Review of Systems: Complete Review of Systems unable to be obtained. Physical Exam Physical Exam: General: No acute distress. HENT: Normocephalic. Atraumatic. Neck: No JVD. Heart: Regular at 68 bpm. Lungs: Mild upper airway congestion/mucous. Extremities: No clubbing, cyanosis, or edema. Floyd catheter draining relatively clear urine. Results & Data ([facility]) Vital Signs (Past 12 Hours) Vital Signs Pulse Pulse Resp Pulse Ox 11/12/21 02:35 64 11/12/21 00:50 68 16 95
[2021-11-12 11:16] LABS: BUN Creatinine Ratio 31.8 (10-20); Calcium 9.7 mg/dl (8.5-10.1); Creatinine Clr Calc Pharmacy 23.2 ml/min; Est GFR (African American) 41.4 ml/min; Est GFR (Non-African American) 35.7 ml/min; Potassium 3.7 mmol/L (3.5-5.1)
[2021-11-12 14:05] LABS: Hemoglobin 12.9 g/dL (12.0-16.0); Mean Corpuscular Hemoglobin 30.1 pg (25-34); Mean Corpuscular Hgb Conc 32.3 g/dL (32-36); Mean Corpuscular Volume 93.2 fL (80-100); Mean Platelet Volume 9.9 fL (7.4-10.4); Platelet Count 378 K/uL (130-400); RDW Coefficient of Variation 15.9 % (11.5-14.5); RDW Standard Deviation 53.8 fL (36.4-46.3); Red Blood Count 4.29 M/uL (4.2-5.4); White Blood Count 13.99 K/uL (4.8-10.8)
[2021-11-12] MEDS: CEFDINIR 300 MG CAP PO SCH (16:35)
--- NOTE | 2021-11-12 18:52 | Hospitalist Progress Note ---
Date of Service November 12, 2021 Assessment & Plan (1) Cellulitis of arm, right: (2) Supratherapeutic INR: (3) Acute UTI: (4) Generalized weakness: Plan: Likely multifactorial due to prolong admission for complicated UTI CT head showed no acute intracranial abnormality Continue PT/OT with Home health service Fall precaution Daughters are not interested for her to go to rehab Daughters want to take her home because they feel she will get stronger at home Daughter is concerned if patient stays in the hospital longer that she will become more delirious Patient work with physical therapy today. During the therapy she felt very weak and dizzy. Discussed with daughters at bedside that patient is very weak and will need more therapy before discharging home Daughter insisted to take her home because they will be there to provide care for her I explained to the daughter that patient is very weak that put her at risk of fall and she will be difficult for them as well to move her They said that they did provided care in the past for their late dad before passing away that they are comfortable to take care of their mother They asked to discharge her with the cary cath and once she get stronger in the next few days that home health can remove the cary cath daughter understood the risk of keeping the cary cath such as UTI, hematuria from catheter trauma Pt would like to go home with her daughters GI bleed secondary to colon mass, adenocarcinoma, status post sigmoid colectomy and end colostomy 11/02 S/P Sigmoidoscopy:Likely malignant tumor at 15 cm proximal to the anus. Biopsied. Tattooed. Diverticulosis in the sigmoid colon. S/P EGD:Normal esophagus. Normal examined duodenum. Small hiatal hernia. No specimens collected. 11/02: Laparoscopic Sigmoid Colectomy; end colostomy ; enterolysis- Burt Washington, DO Pathology : Adenocarcinoma Abdominal pain improving, tolerating regular diet, good colostomy output Ostomy functioning case discussed with Surgery Continue to change packing to midline wound daily with nu-gauze wick and 4x4 gauze as per surgery Hgb stable at 12 Due to recent surgical surgery and history of CHF. pt has medical condition that requires frequent repositioning of the body in ways not feasible with an ordinary bed in order to alleviate pain Ok from surgical standpoint to discharge home Follow up with surgery Dr. Washington in 1- 2 weeks Acute bronchitis Develop productive cough 3 to 4 days postop Currently on 2 L of oxygen via nasal cannula which is her baseline Sputum cultures: Gram-negative bacilli Blood cultures no growth Received cefepime IV for 3 days, then transition to Cefdinir 300mg daily Continue nebs Continue usual Mucinex Clinically improved Acute blood loss anemia likely secondary to surgery Hematoma Acute on Chronic anemia Multifactorial: CKD, Acute blood loss anemia, iron deficiency Hemoglobin decreased from 10-9--> 7.9 S/P 1 unit PRBC during the admission course Iron level 47 No signs of active bleeding No signs of hematoma expansion Continue iron supplement Eliquis resumed yesterday as per cardiology and Surgery ok as well Hgb stable at 12.9 Complicated UTI Multidrug-resistant Proteus on outpatient urine culture Outpatient Urine Cx from 10/18/21: Proteus mirabilis sensitive to cefepime, ciprofloxacin, gentamicin, meropenem, Zosyn, Bactrim. Resistant to ampicillin, Unasyn, cefazolin, cefoxitin, ceftriaxone. Completed course of abx Advised daughter about the cary cath that need to remove, but family would like to keep it for a couple days until she is able to move around Home health nurse will remove the cary cath Traumatic RUE cellulitis Blood Cultures: Negative to date Completed 5 day course of Zosyn>>Cipro--Completed course Continue Zosyn>>> transitioned to cefdinir for cellulitis>>Completed the course Appreciate orthopedics input. No I&D needed as per Ortho. Continue PT and OT evaluation Right Upper Extremity Hematoma: RUE USD:Complex 15.2 x 3 x 3 cm right upper arm fluid collection. This favors a resolving hematoma, possibly intramuscular. 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 Benjamin, recommend Eliquis 2.5 mg twice daily if patient remains stable and active bleeding ruled out Tolerated eliquis 2.5 mg BID (Hgb stable ) Hypertension -- Continue home meds -- Monitor Hyperlipidemia -- on statin Bronchial asthma -- Ongoing steroid Rx for last couple of months -- Discussed with daughter Prednisone being tapered slowly as an outpatient, currently down to 2.5 mg daily for the past 2 to 3 weeks Will taper prednisone to every other day, then continue to wean off No wheezing Breast cancer S/P surgery, tamoxifen on hold following recent confinement for PE DVT Follows with [facility] oncologist Thyroid cancer S/P surgery Post surgical hypothyroidism chronic, stable. Continue levothyroxine Abnormal LFTs CT ABD:The liver is homogeneous in attenuation on these limited noncontrast images. There is again cholelithiasis with no CT evidence for acute cholecystitis. Avoid hepatotoxic agents as able --Resolved DM II New Diagnosis H/O Prediabetes Likely worsened due to setoids HbA1C:6.8 No tight glycemic control needed given advanced age --Blood glucose within acceptable range CKD Stage III Cr at baseline 1.4 today Monitor renal function Avoid nephrotoxic agents as able Ambulatory dysfunction/functional disability Fall precautions PT/OT DVT Px: Status post IVC filter placement Heparin subcutaneous or Eliquis Code Status Full Code Disposition Plan to discharge home today as per daughters request Updated provided with daughters at bedside and answered all her questions Admission and Anticipated Discharge Date Admission Date: October 20, 2021 Subjective Pt was seen and examined for postop colectomy, anemia, LUE cellulitis, bronchitis, delerium Sitting on the recliner comfortable with daughter at bedside Her mental status is much better today Daughters want to take her home because they feel she will get stronger at home Daughter is concerned if patient stays in the hospital longer that she will become more delirious Patient work with physical therapy today. During the therapy she felt very weak and dizzy. Discussed with daughters at bedside that patient is very weak and will need more therapy before discharging home Daughter insisted to take her home because they will be there to provide care for her I explained to the daughter that patient is very weak that put her at risk of fall and she will be difficult for them as well to move her They said that they did provided care in the past for their late dad before passing away that they are comfortable to take care of their mother They asked to discharge her with the cary cath and once she get stronger in the next few days that home health can remove the cary cath daughter understood the risk of keeping the cary cath such as UTI, hematuria from catheter trauma Pt would like to go home with her daughters Pt denies any chest pain, palpitation, dizziness and SOB Review of Systems Review of Systems: All systems reviewed & are unremarkable except as noted in Subjective Physical Exam Physical Exam: General- very sleepy Head- atraumatic Eyes- PERRL, EOMI, ENT- oropharynx clear Neck- supple, no JVD Lungs- clear to auscultation Heart- regular rhythm; no murmur Abdomen- normal bowel sounds, +colostomy bag in the left Extremities- no calf tenderness Neuro- alert, oriented x 2; PERRL, EOMI; no facial palsy; no dysarthria Skin- warm & dry Results & Data Results & Data ([facility]) Vital Signs (Past 12 Hours) Vital Signs Temp Pulse Pulse Pulse Resp BP Pulse Ox 11/12/21 17:17 36.4 C L 94 H 69 18 104/52 L 95 11/12/21 16:55 36.4 C L 94 H 69 18 104/52 L 95 11/12/21 15:22 96 H 11/12/21 13:39 94 H 18 95 11/12/21 07:57 69
--- NOTE | 2021-11-12 20:02 | Discharge Summary ---
Date of Service November 12, 2021 Admission HPI Per Admitting Provider Chief Complaint: weakness, right upper extremity swelling Primary Care Provider: Urszula Calvert MD History obtained from patient, family, and records. 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 Patient discharged on Coumadin course and prednisone course as as well. Patient tamoxifen held until follow-up with oncology. Patient daughter noted to be somewhat confused than usual last week. Outpatient UA showed possible infection. Patient PCP prescribed cefdinir. 5 days ago, patient had trouble getting up from the toilet floor. Patient did not ask for help walking. Patient daughter subsequently noted painful right upper extremity swelling. Patient with usual cough symptoms attributed to allergies. Achy headache complaints. Patient also complaining of vague abdominal discomfort described as indigestion. Usual black stools attributed to iron. Patient brought to the ER by daughter given concerns for worsening swelling of the right upper extremity. Admission Exam Per Admitting Provider GENERAL: Slightly uncomfortable, obese, audible wheezing SKIN: Pallor,, warm HEENT: Pale palpebral conjunctivae, no ptosis, dry buccal mucosa NECK : Supple, short neck, no tenderness CHEST : Decreased breath sounds, occasional expiratory wheezes, no tenderness HEART : RRR, no obvious murmurs ABDOMEN: Some distention, nontender EXTREMITIES : Tender RUE swelling with decreased right shoulder range of motion, minimal LE swelling, no LE tenderness, no other conspicuous deformities noted NEUROLOGIC : Coherent, no facial asymmetry, slightly hard of hearing, no other gross focality Principal Diagnosis Colon mass Adenocarcinoma, well-differentiated Cellulitis of arm, right: Supratherapeutic INR: Acute UTI: Generalized weakness: Acute bronchitis Gastrointestinal bleeding Acute blood loss anemia likely secondary to surgery Complicated Urinary tract infection Traumatic RUE cellulitis Right Upper Extremity Hematoma: Chronic diastolic heart failure Paroxysmal atrial fibrillation Pulmonary embolism Hx of DVT Status post IVC filter placement Supratherapeutic INR Hypertension Hyperlipidemia Bronchial asthma Breast cancer Thyroid cancer Diabetes Chronic kidney disease ( CKD) Stage III Ambulatory dysfunction/functional disability Fall precautions Discharge Exam General- very sleepy Head- atraumatic Eyes- PERRL, EOMI, ENT- oropharynx clear Neck- supple, no JVD Lungs- clear to auscultation Heart- regular rhythm; no murmur Abdomen- normal bowel sounds, +colostomy bag in the left Extremities- no calf tenderness Neuro- alert, oriented x 2; PERRL, EOMI; no facial palsy; no dysarthria Skin- warm & dry Discharge Data 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, 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 sulfamethoxazole Allergy Mild RASH Verified 10/28/21 10:26 trimethoprim Allergy Mild RASH Verified 10/28/21 10:26 amlodipine Allergy legs swell Verified 10/28/21 10:26 severe azithromycin Allergy Diarrhea Verified 11/02/21 11:16 ipratropium Allergy Anaphylaxis Verified 10/28/21 10:26 Sulfa (Sulfonamide Allergy Difficulty Verified 10/28/21 10:26 Antibiotics) Breathing doxycycline AdvReac Unknown GI upset Verified 10/28/21 10:26 cefuroxime [From Ceftin] AdvReac Diarrhea Verified 10/28/21 10:26 narcotic in general AdvReac Severe Hallucinati Uncoded 10/28/21 10:26 ng Consultations 10/19/21 22:41 ED Decision to Admit Stat 10/20/21 09:14 Consult Orthopedic Surgery Routine 10/26/21 13:36 Consult Gastroenterology Routine 10/27/21 10:01 Consult Anesthesiology Routine 10/27/21 10:48 Consult Cardiology Routine 10/28/21 14:22 Consult General Surgery Routine 11/01/21 08:00 Consult Vascular Surgery Routine 11/02/21 21:09 Consult Commercial Litigation Attorney Routine Procedures Performed Operation Date: 10/28/21 16:30 Actual Procedures p Esophagogastroduodenoscopy - Amparo Cruz DO s Flexible Sigmoidoscopy Biopsy - Amparo Cruz DO Operation Date: 11/02/21 11:45 Actual Procedures s Inferior Vena Cava Filter Placement - Tony Marmolejo MD p Laparoscopic Sigmoid Colectomy - Burt Washington DO Ordered Studies 10/19/21 18:56 CT head/brain wo con Stat US venous doppler UE RT Urgent 10/20/21 00:53 CT abd pelvis wo con Urgent CT shoulder RT wo con Urgent 10/26/21 09:45 US extremity non-vascular ltd Routine 11/02/21 11:42 FL KUB Routine 11/11/21 16:14 CT head/brain wo con Stat XR chest 1V portable HISTORY: 89 years-old Female SEPSIS acute sepsis COMPARISON: Chest radiograph 10/01/2021 TECHNIQUE: Portable AP view of the chest FINDINGS: Cardiac silhouette is enlarged. No pneumothorax, large pleural effusion or overt pulmonary edema. Unchanged right hemidiaphragmatic elevation. Moderate sized hiatal hernia with improved left basilar opacities. Degenerative changes of the shoulders and spine. IMPRESSION: 1. Cardiomegaly without pulmonary edema. 2. Moderate hiatal hernia with left basilar opacities suggestive of atelectasis. 3. Unchanged right hemidiaphragmatic elevation. ACT 112: Negative or not required by law. The above report was generated using voice recognition software. It may contain grammatical, syntax or spelling errors. Electronically signed by: Isaac Pierre M.D. 10/19/2021 8:37 PM Dictated:10/19/212035 Transcribed: 10/19/212035 CT head/brain wo con CLINICAL HISTORY: 89 years-old Female with confusion, elevated INR. Acutely altered mental status with elevated INR TECHNIQUE: Multiple axial CT images of the head were obtained without contrast. A dose lowering technique was utilized adhering to the principles of ALARA. CT DOSE: 537.48 mGy.cm COMPARISON: Head CT 10/01/2021 FINDINGS: No acute intracranial hemorrhage, midline shift, intracranial mass, hydrocephalus, territorial ischemia or abnormal extra-axial collection. Age- related involutional changes. Mild white matter hypodensities are suggestive of probable chronic microvascular ischemic disease. Cerebral vascular calcifications. The calvarium is intact. Prior bilateral lens repair. The paranasal sinuses, mastoid air cells, and middle ear cavities are clear. IMPRESSION: No acute intracranial abnormality. ACT 112: Negative or not required by law. The above report was generated using voice recognition software. It may contain grammatical, syntax or spelling errors. Electronically signed by: Isaac Pierre M.D. 10/19/2021 8:25 PM Dictated:10/19/212022 Transcribed: 10/19/212022 US venous doppler UE RT CLINICAL HISTORY: redness swelling RUE PROCEDURE: Right upper extremity real-time compression venous ultrasound with Duplex and Color Doppler imaging. FINDINGS: Utilizing real-time ultrasonic imaging multiple real time high-resolution ultrasonic images of the deep venous system were performed from the forearm through the subclavian vein including evaluation of the jugular vein. Compression real time ultrasonic imaging was performed in addition to color Doppler imaging and duplex Doppler ultrasound with velocity spectral profile analysis. There is normal compressibility of the deep venous system from the forearm t hrough the subclavian vein. Normal vascular flow is currently identified. No evidence of superficial thrombosis is identified. A complex fluid collection is seen in the right shoulder measuring 5.5 x 3.7 x 5.9 cm. A fluid collection is seen in the anterior arm and the area of swelling measuring 11.3 cm, extending proximal to the matter Impression: 1. No evidence of deep venous thrombus. 2. Fluid collection in the right shoulder, possibly representing a joint effusion. Anterior right upper arm fluid collection as which is nonspecific but may represent hematoma or abscess. ACT 112: Negative or not required by law. Electronically signed by: Ayo Simon M.D. 10/20/2021 7:35 AM Dictated:10/20/21729 Transcribed: 10/20/21729 CT abd pelvis wo con CLINICAL HISTORY: abd pain COMPARISON STUDY: 09/24/2021 CT DOSE: 1043.10 mGy.cm TECHNIQUE: Standard CT of the Abdomen and Pelvis was performed without IV contrast. The patient did not receive oral contrast. A dose lowering technique was utilized adhering to the principles of ALARA. FINDINGS: Lung base: The heart is enlarged with coronary artery calcification. There is interval decrease in left basilar atelectasis. Chronic pleural thickening is seen in the right lung base. Minimal dependent edema is seen at the lung bases. Abdominal cavity: There is no evidence for abdominal mass, adenopathy or ascites. Liver: The liver is homogeneous in attenuation on these limited noncontrast images.. Spleen: The spleen is homogeneous in attenuation on these limited noncontrast images. Pancreas: The pancreas is homogeneous in attenuation on these limited noncontrast images. Gall Bladder: There is again cholelithiasis with no CT evidence for acute cholecystitis. Adrenal glands: The adrenal glands are normal in size and attenuation on these limited noncontrast images. Kidneys: The kidneys are homogeneous in attenuation on these limited noncontrast images. There is no evidence for gross renal mass, calculus or hydronephrosis bilaterally. Bowel: There is a moderate size hiatal hernia. The bowel loops are normally placed within the abdomen and pelvis without evidence for dilatation or obstruction. There is no evidence for mass lesion. There is extensive sigmoid diverticulosis without evidence for diverticulitis. There are no inflammatory changes present. There is no evidence for free air. Bladder: There is no evidence for focal bladder wall thickening, calculus or diverticulum. : There is no evidence for pelvic mass or adenopathy. The patient is status post hysterectomy. Vasculature: There is no evidence for focal aneurysmal dilatation of the abdominal aorta. Extensive atherosclerotic calcification is present. Osseous structures: There is no acute osseous pathology. Degenerative changes are seen within the spine. IMPRESSION: 1. Compared to previous examination, there has been interval resolution of left basilar atelectasis. 2. There is again cholelithiasis with no CT evidence for acute cholecystitis. 3. There is again diffuse sigmoid diverticulosis without evidence for diverticulitis. 4. Moderate size hiatal hernia is again seen. 5. Additional nonacute findings are delineated above. ACT 112: Negative or not required by law. Electronically signed by: Magdi Mitchell M.D. 10/20/2021 8:13 AM Dictated:10/20/21 08 Transcribed: 10/20/[address] shoulder RT wo con CLINICAL HISTORY: Right shoulder pain and swelling COMPARISON STUDY: No standard radiographs provided for comparison CT DOSE: 545.78 mGy.cm TECHNIQUE: Standard CT of the right is performed without IV contrast. Multiplanar reconstruction is performed. A dose lowering technique was utilized adhering to the principles of ALARA. FINDINGS: Bones: Bones are osteopenic. There is no evidence for an acute fracture or dislocation. There are no lytic or blastic lesions. Joints: There is moderate to marked narrowing of the glenohumeral joint with marginal osteophyte formation seen involving the humeral head. Moderate degenerative changes are also seen involving the acromial clavicular joint with spur formation present. There is superior migration of the humeral head in relation to the glenoid with almost complete loss of the humeral head subacromial distance. These findings are most characteristic of a chronic rotator cuff tear. Soft tissues: There is evidence for diffuse swelling of the upper arm with a few air bubbles seen within the biceps muscle of uncertain etiology. Clinical corre lation is necessary. There are no focal fluid collections. IMPRESSION: 1. No acute osseous pathology. 2. Osteopenia and osteoarthritis. 3. Secondary findings of a chronic rotator cuff tear. 4. There are a few air bubbles present within the soft tissues of the upper arm of uncertain etiology. Clinical correlation is necessary. ACT 112: Negative or not required by law. Electronically signed by: Magdi Mitchell M.D. 10/20/2021 8:06 AM Dictated:10/20/21 08 Transcribed: 10/20/21 08 XR humerus RT 2V CLINICAL HISTORY: right arm pain. COMPARISON STUDY: No previous studies for comparison. TECHNIQUE: AP and lateral views FINDINGS: Bones: The bones are osteopenic. There is no evidence for an acute fracture or dislocation. There is no lytic or blastic lesion. Joints: Osteoarthritis is again seen at the shoulder. The elbow joint is maintained. Elevation of the humeral head in relation to the glenoid is again seen characteristic of a chronic rotator cuff tear. Soft tissues: There is no focal soft tissue abnormality. The small air bubbles seen on the CT cannot be identified radiographically. There is no radiopaque f oreign body. IMPRESSION: 1. No acute osseous pathology. 2. Osteopenia, osteoarthritis and secondary findings of chronic rotator cuff tear. 3. The small air bubbles seen on CT are not visualized radiographically. If there is concern for muscle infection, MRI of the arm without and with contrast would be recommended. ACT 112: Negative or not required by law. Electronically signed by: Magdi Mitchell M.D. 10/20/2021 2:15 PM Dictated:10/20/21 1407 Transcribed: 10/20/211406 RIGHT UPPER ARM ULTRASOUND CLINICAL HISTORY: Right upper extremity palpable lump. COMPARISON STUDY: Right humerus radiographs October 20, 2021. CT of the right shoulder October 20, 2021. TECHNIQUE: Sonography of the right upper arm at site of palpable lump was performed. FINDINGS: Note is made of a complex elongated fluid collection of the right upper arm which measures 15.2 x 3 x 3 cm. This appears to overlie the fascia although a portion may be intramuscular in location. This contains no color flow. No additional fluid collections are identified. IMPRESSION: Complex 15.2 x 3 x 3 cm right upper arm fluid collection. This favors a resolving hematoma, possibly intramuscular. ACT 112: Negative or not required by law. Electronically signed by: Dayo Peña M.D. 10/26/2021 2:23 PM Dictated:10/26/211420 Transcribed: 10/26/21 142 Hospital Course (1) Cellulitis of arm, right: (2) Supratherapeutic INR: (3) Acute UTI: (4) Generalized weakness: Likely multifactorial due to prolong admission for complicated UTI CT head showed no acute intracranial abnormality Continue PT/OT with Home health service Fall precaution Daughters are not interested for her to go to rehab Daughters want to take her home because they feel she will get stronger at home Daughter is concerned if patient stays in the hospital longer that she will become more delirious Patient work with physical therapy today. During the therapy she felt very weak and dizzy. Discussed with daughters at bedside that patient is very weak and will need more therapy before discharging home Daughter insisted to take her home because they will be there to provide care for her I explained to the daughter that patient is very weak that put her at risk of fall and she will be difficult for them as well to move her They said that they did provided care in the past for their late dad before passing away that they are comfortable to take care of their mother They asked to discharge her with the cary cath and once she get stronger in the next few days that home health can remove the cary cath daughter understood the risk of keeping the cary cath such as UTI, hematuria from catheter trauma Pt would like to go home with her daughters GI bleed secondary to colon mass, adenocarcinoma, status post sigmoid colectomy and end c olostomy 11/02 S/P Sigmoidoscopy:Likely malignant tumor at 15 cm proximal to the anus. Biopsied. Tattooed. Diverticulosis in the sigmoid colon. S/P EGD:Normal esophagus. Normal examined duodenum. Small hiatal hernia. No specimens collected. 11/02: Laparoscopic Sigmoid Colectomy; end colostomy ; enterolysis- Burt Washington, DO Pathology : Adenocarcinoma Abdominal pain improving, tolerating regular diet, good colostomy output Ostomy functioning case discussed with Surgery Continue to change packing to midline wound daily with nu-gauze wick and 4x4 gauze as per surgery Hgb stable at 12 Due to recent surgical surgery and history of CHF. pt has medical condition that requires frequent repositioning of the body in ways not feasible with an ordinary bed in order to alleviate pain Ok from surgical standpoint to discharge home Follow up with surgery Dr. Washington in 1- 2 weeks Acute bronchitis Develop productive cough 3 to 4 days postop Currently on 2 L of oxygen via nasal cannula which is her baseline Sputum cultures: Gram-negative bacilli Blood cultures no growth Received cefepime IV for 3 days, then transition to Cefdinir 300mg daily Continue nebs Continue usual Mucinex Clinically improved Acute blood loss anemia likely secondary to surgery Hematoma Acute on Chronic anemia Multifactorial: CKD, Acute blood loss anemia, iron deficiency Hemoglobin decreased from 10-9--> 7.9 S/P 1 unit PRBC during the admission course Iron level 47 No signs of active bleeding No signs of hematoma expansion Continue iron supplement Eliquis resumed yesterday as per cardiology and Surgery ok as well Hgb stable at 12.9 Complicated UTI Multidrug-resistant Proteus on outpatient urine culture Outpatient Urine Cx from 10/18/21: Proteus mirabilis sensitive to cefepime, ciprofloxacin, gentamicin, meropenem, Zosyn, Bactrim. Resistant to ampicillin, Unasyn, cefazolin, cefoxitin, ceftriaxone. Completed course of abx Advised daughter about the cary cath that need to remove, but family would like to keep it for a couple days until she is able to move around Home health nurse will remove the cary cath Traumatic RUE cellulitis Blood Cultures: Negative to date Completed 5 day course of Zosyn>>Cipro--Completed course Continue Zosyn>>> transitioned to cefdinir for cellulitis>>Completed the course Appreciate orthopedics input. No I&D needed as per Ortho. Continue PT and OT evaluation Right Upper Extremity Hematoma: RUE USD:Complex 15.2 x 3 x 3 cm right upper arm fluid collection. This favors a resolving hematoma, possibly intramuscular. 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 Benjamin, recommend Eliquis 2.5 mg twice daily if patient remains stable and active bleeding ruled out Tolerated eliquis 2.5 mg BID (Hgb stable ) Hypertension -- Continue home meds -- Monitor Hyperlipidemia -- on statin Bronchial asthma -- Ongoing steroid Rx for last couple of months -- Discussed with daughter Prednisone being tapered slowly as an outpatient, currently down to 2.5 mg daily for the past 2 to 3 weeks Will taper prednisone to every other day, then continue to wean off No wheezing Breast cancer S/P surgery, tamoxifen on hold following recent confinement for PE DVT Follows with [facility] oncologist Thyroid cancer S/P surgery Post surgical hypothyroidism chronic, stable. Continue levothyroxine Abnormal LFTs CT ABD:The liver is homogeneous in attenuation on these limited noncontrast images. There is again cholelithiasis with no CT evidence for acute issa cystitis. Avoid hepatotoxic agents as able --Resolved DM II New Diagnosis H/O Prediabetes Likely worsened due to setoids HbA1C:6.8 No tight glycemic control needed given advanced age --Blood glucose within acceptable range CKD Stage III Cr at baseline 1.4 today Monitor renal function Avoid nephrotoxic agents as able Ambulatory dysfunction/functional disability Fall precautions PT/OT DVT Px: Status post IVC filter placement Heparin subcutaneous or Eliquis Code Status Full Code Disposition Plan to discharge home today as per daughters request Updated provided with daughters at bedside and answered all her questions Total Time Total Time Spent Total Time Spent (In Minutes): 45 minutes Discharge Plan Discharge Items Patient Disposition: Home - Home Health Services Reason For Visit: ENCAPHALOPATHY, COMP UTI Discharge Diagnosis: Adenocarcinoma, well-differentiated Cellulitis of arm, right: Supratherapeutic INR: Acute UTI: Generalized weakness: Acute bronchitis Gastrointestinal bleeding Acute blood loss anemia likely secondary to surgery Complicated Urinary tract infection Traumatic RUE cellulitis Right Upper Extremity Hematoma: Chronic diastolic heart failure Paroxysmal atrial fibrillation Pulmonary embolism Hx of DVT Status post IVC filter placement Supratherapeutic INR Hypertension Hyperlipidemia Bronchial asthma Breast cancer Thyroid cancer Diabetes Chronic kidney disease ( CKD) Stage III Ambulatory dysfunction/functional disability Fall precautions Activity: Per Instructions section Lifting: No more than 10 pounds Bathing Comment: may shower; no soaking in tubs/pools Exercise/Sports: Wait until after follow-up appointment Non-emergency contact: Primary Care Provider, Surgeon, Physician Chief Of Pathology and [employer] Call non-emergency contact if: you have any medication questions, your symptoms worsen, your pain is not controlled, your pain is concerning for you, you have a fever, your temperature is above 101.5, your wound has increased redness, your wound has increased drainage and your wound pain has increased Follow-up/Referrals: Burt Washington DO [Surgeon] - 11/22/21 11:45 am ([facility] [address], [place] [address] ) Elysia Saunders MD, PhD [Physician] - (Date & Time 12/13/2021 1:00 PM Provider Elysia Saunders MD Department Nephrology, [facility] ) Urszula Calvert MD [Primary Care Provider] - (Date & Time 11/18/2021 2:20 PM Provider Cate Stone MD Department General Internal Medicine [facility] ) Trisha Perkins CRNP [Nurse Practitioner] - (Date & Time 11/19/2021 2:30 PM Provider SOPHIE Dinero Department Cardiology, [facility] ) Diet: Carb Consistent or DM2 Diet Texture: Easy to Chew Addtl Attending Provider Instructions: Follow up with primary care provider Dr. Rosado 11/18/2021 @ 2:20 PM General Internal Medicine [facility] Follow up with cardiology on 11/19/2021 @ 2:30 PM SOPHIE Dinero Department Cardiology, [facility] Follow up with nephrology on 12/13/2021 @1:00 PM Elysia Saunders MD Department Nephrology, [facility] Surgery Dr. Washington on 11/22/21 @ 11:45 AM [address], [place] [address] Continue physical and occupational therapy Fall precaution Complete the course of the antibiotic Check CBC and BMP in 1 week Check Hemoglobin A1C in 3 months Seek urgent medical attention if symptoms worsening Continue daily wound care Ok to discharge home with the cary catheter ( Ok for home health nurse to remove the cary once patient ambulation improves) Continue oxygen supplement with 2L Nasal canula Supply given for the colostomy Change dressing to abdominal incision daily. Probe with q-tip daily to keep open. You may either place a small wick of nu-gauze or a corner of dry 4x4 gauze in incision if you wish or simply place a piece of dry gauze over incision and adhere with medical tape. Change daily and as needed. Please follow ostomy care as you have been educated during your hospitalization Use 1 3/4" Assaria wafer and matching pouch. Use 2" ostomy ring. Clean skin and surrounding stoma with water. Can use non moisturizing pH balanced soap if desired and rinse well. Do not use antibacterial soap. Apply 2" ring to surrounding stoma. Cut wafer to fit stoma. Apply wafer and matching pouch. Change at least weekly and if leaks. Pending Studies at Discharge: Yes Stand-Alone Forms: My [facility] [employer], Smoking Cessation Medications and DC Order Prescriptions: New Eliquis 2.5 mg Tablet 2.5 mg PO BID 30 Days Qty: 60 RF: 0 Continued atorvastatin 40 mg Tablet 40 mg PO PM RF: 0 carvedilol [Coreg] 25 mg Tablet 12.5 mg PO BID RF: 0 allopurinol 100 mg Tablet 200 mg PO QAM RF: 0 spironolactone 25 mg Tablet 12.5 mg PO QAM RF: 0 budesonide 0.5 mg/2 mL Suspension For Nebulization 0.5 mg INHALATION BID RF: 0 levalbuterol HCl [Xopenex] 1.25 mg/3 mL Solution For Nebulization 1.25 mg INHALATION QID RF: 0 tamoxifen 20 mg Tablet 20 mg PO . ON HOLD RF: 0 pantoprazole [Protonix] 40 mg Tablet,Delayed Release (Dr/Ec) 40 mg PO BID RF: 0 nitroglycerin [Nitrostat] 0.4 mg Tablet, Sublingual 0.4 mg buccal .UD PRN (Reason: Chest Pain) RF: 0 montelukast 10 mg Tablet 10 mg PO PM RF: 0 cholecalciferol (vitamin D3) [Vitamin D3] 1,000 unit Capsule 2,000 unit PO 3XWK RF: 0 escitalopram oxalate [Lexapro] 10 mg Tablet 5 mg PO QAM RF: 0 fexofenadine 180 mg Tablet 180 mg PO QAM RF: 0 triamcinolone acetonide [Nasacort] 55 mcg Aerosol,[place] 1 spray INTRANASAL BID RF: 0 azelastine 137 mcg (0.1 %) Aerosol,[place] 1 spray INTRANASAL BID RF: 0 Saline Nasal 0.65 % Aerosol,[place] 2 spray INTRANASAL QID PRN (Reason: Nasal Congestion) RF: 0 famotidine 20 mg Tablet 20 mg PO BID RF: 0 isosorbide mononitrate 60 mg tablet extended release 24 hr 60 mg PO HS RF: 0 levalbuterol tartrate 45 mcg/actuation HFA aerosol inhaler 1 puff INHALATION Q4H PRN (Reason: Wheezing) RF: 0 magnesium oxide 400 mg (241.3 mg magnesium) tablet 800 mg PO QAM RF: 0 sucralfate 100 mg/mL suspension 10 ml PO TID RF: 0 acetaminophen 500 mg Tablet 500 mg PO TID RF: 0 hydralazine 10 mg tablet 10 mg PO TID PRN (Reason: Hypertension) RF: 0 benzonatate 100 mg Capsule 100 mg PO TID PRN (Reason: Cough) RF: 0 clotrimazole-betamethasone 1-0.05 % cream 1 applic TOPICAL BID PRN (Reason: redness of skin) RF: 0 lidocaine HCl 2 % Solution 1 applic topical DAILY PRN (Reason: on feet before podiatry) RF: 0 calcitriol 0.25 mcg capsule 0.25 mcg PO 3XWK RF: 0 Vitron-C 65 mg iron- 125 mg tablet,delayed release (DR/EC) 1 tab PO BID RF: 0 guaifenesin [Mucinex] 600 mg Tablet Extended Release 12hr 600 mg PO BID RF: 0 nystatin 100,000 unit/gram powder 1 applic TOPICAL BID PRN (Reason: rash ) RF: 0 levothyroxine 200 mcg tablet 200 mcg PO DAILYBB RF: 0 budesonide-formoterol [Symbicort] 160-4.5 mcg/actuation HFA aerosol inhaler 2 puff INHALATION BID RF: 0 docusate sodium 100 mg Capsule 200 mg PO BID RF: 0 furosemide 40 mg tablet 60 mg PO BID RF: 0 cefdinir 300 mg capsule 300 mg PO QAM 3 Days Qty: 3 RF: 0 Changed prednisone 5 mg tablet 2.5 mg PO Q2D Qty: 0 RF: 0 potassium chloride 10 mEq tablet extended release 20 meq PO UD Qty: 0 RF: 0 nystatin 100,000 unit/mL suspension 5 ml buccal QID Qty: 100 RF: 0 Discontinued warfarin 2 mg tablet 1 mg PO . CURRENTLY ON HOLD RF: 0 Discharge Orders: Discharge Order (Routine); Ordered 11/12/21 Ordered By: Doug Haynes/Other Patient Handouts: A1C Admission Data Admit Date/Time: 10/20/21 01:07 Attending Provider: Doug Angulo Admit Provider: Wing Mohr Primary Care Provider: Urszula Calvert Other Providers: Jesse Pruett ; Wing Mohr ; David Hayden ; Oscar Gongora ; Dio Mendoza ; Noemi Gutierrez ; Jennifer Alex ; Gavin Thorpe ; Hola Carlton ; Fausto Spann ; Fausto Ulloa ; Nany Lyons ; Chey Gonsales ; Anayeli Stack ; Shey Roland ; Amparo Cruz ; Angela Mccormack ; Leslye Goff ; Lily Ruggiero ; Noemi Galindo ; Riley Gallego ; Ephraim Ro ; Goran Jeronimo ; Georges Marsh ; Mary Wong ; Trent Graves ; Jennifer Bond ; Maurice Andrea ; Siomn Lubin ; Job Mijares ; Sim Arreola ; Lala Hernandez ; Dionicio Wills ; Melvi Melgoza ; Nat Wills ; Steve Chakraborty ; Trisha Hopson ; Vincenzo Delong ; Nany Cordero ; Aleja Martinez ; Trisha Colvin ; Mela Turner David E ; Adilene Borrego ; Marisol Iniguez ; Andie Novak ; Nikki Bills ; Wing Bills V ; Aniket Danielson ; Leslye Peterson ; Merrick Hdz ; Mariluz Rubio ; Paula Thayer ; Wing Spann ; Naresh Hernandez ; Ayo Urbano ; [place] ; Ragini Salas ; Wing Ojeda ; Andie Vincent ; Rolando Marquez ; Bakari Arreola ; [place] ; Klever Marcus ; Isabel Ngo ; Jeremías Zuniga ; Saman Macias ; Klever Tirado ; Riley Dooley Jr ; Vicky Javed ; Dotty Quiles ; Connie Pruitt ; Darrell Chaney ; Noemi Hunter ; Georges Daly ; Josh Mosquera I. ; Pio Benjamin ; Nicholas Enriquez ; Dionicio Shaikh ; Serena Kaiser ; Angelica Pavon ; Aman Nur ; Goran Mcdermott ; Noemi Baez ; Rhonda Ly ; Howard Santos Jr ; Sejal Martin ; Burt Ibrahim ; Karrie Chaparro ; Tnoy Marmolejo ; Rambo Nunes ; Inocente Christian ; [facility] Other Interventions: Discharge Summary Assessment (RN) Last Done: 11/12/21 17:17
== END 2021-11-12 19:54 | disposition home health service (06) | DRG 981 ==
LOC: ED 17:29 → SUATTDRO 10-20 01:07 → 2E 10-20 01:07 → 2W 10-22 14:47 → 1E 11-02 18:44 → 2S 11-04 14:55